=== PATIENT | male | born 1955 | race Caucasian/White ===

== ENCOUNTER 2020-07-19 10:56 | Emergency (ER) | payer MEDICARE, SELFPAY ==
[2020-07-19 11:19] VITALS: BP 166/94; PULSE 78; RESP 18; TEMP 36.7; O2SAT 98; BMI 20.7
[2020-07-19 11:32] VITALS: BP 157/90; PULSE 73; RESP 18; TEMP 37.2
[2020-07-19 11:57] LABS: Glucose Urine UA NEG (NEG); Leukocyte Esterase Urine NEG (NEG); Nitrite Urine NEG (NEG); PH 5.5 (5.0-8.0); Urine Blood 1+ (NEG); Urine Ketones NEG (NEG); Urine Protein 1+ MG/DL (NEG-TRACE)
[2020-07-19 11:58] LABS: Appearance Urine CLEAR; Color Urine YELLOW
[2020-07-19 12:08] LABS: Mucus Urine TRACE /LPF; Squamous Epithelial Cell Urine TRACE /LPF; WBC Urine 0-2 /HPF (0-4)
--- NOTE | 2020-07-19 12:12 | ED_ITS ---
HPI - Male Genitourinary General Chief complaint: Urogenital-Male Stated complaint: Genital pain Time Seen by Provider: 07/19/20 12:06 Source: patient Mode of arrival: ambulatory History of Present Illness HPI Narrative: 65-year-old male with no significant PMH presented to ED complaining of yellow penile discharge since yesterday. Admits to unprotected intercourse with multiple partners last week. Denies dysuria, hematuria, abdominal pain, nausea /vomiting, flank pain Onset (ago): day(s) Duration: constant Location: penis Related Data Allergies Allergy/AdvReac Type Severity Reaction Status Date / Time No Known Allergies Allergy Verified 07/19/20 11:18 Review of Systems Review of Systems: Constitutional: No Weight loss, No Fever, No Chills Cardiovascular: No Chest Pain, No SOB Respiratory: No Cough, No Sputum Gastrointestinal: No Nausea, No Vomiting, No Diarrhea, No Constipation, No abdominal pain Genitourinary: +penile d/c, no irregular bleeding, No Dysuria, No Urinary Frequency, No Hematuria, No Urinary Incontinence, No Urgency, No Flank Pain, No Urinary Flow Changes, No Hesitancy Skin: No Skin Lesions, No rash PMFSH Social History Social History Alcohol intake: current Alcohol intake frequency: a few times a month Alcohol type: beer Smoking Status: Never smoker Use of substances other than those prescribed or required for medical reasons: No Advance Directives: No Advance Directives Information Provided: No Physical Exam Vital Signs: Vital Signs: Vital Signs Temp Pulse Resp BP Pulse Ox 07/19/20 11:32 98.9 F 73 18 157/90 H 07/19/20 11:19 98.0 F 78 18 166/94 H 98 Body Mass Index 20.7 Const: General: cooperative and healthy appearing Orientation/consciousness: patient oriented x3 Limitations: no limitations HENMT: Head: Yes normal to inspection Ears: hearing grossly normal padilla aterally General nose exam: Normal external nose present Face and sinus: Yes normal facial exam Eyes: General: appearance normal, both eyes and all related structures EOM: EOMs intact bilaterally Neck: Neck: Yes normal visual inspection Resp: Effort & Inspection: normal respiratory effort and no stridor Auscultation: clear to auscultation bilaterally, no crackles, no rales, no rhonchi and no wheezes Cardio: Rate: regular rate Heart sounds: S1 normal heart sound present and S2 normal heart sound present Peripheral pulses: Peripheral pulses 2+ throughout GI: Inspection: Yes normal to inspection Palpation (GI): Soft to palpation, nontender, no guarding and not rigid : Other: no discharge appreciated General: Yes no CVA tenderness Male General Exam: No Genital lesions present Penis: normal penis, uncircumcised, no swelling, no ulcerations and No Genital lesions present Meatus: meatus normal Scrotum: scrotum normal Testes: Testes normal Back/Spine/Pelvis: Back: no CVA tenderness Skin: Wounds: no wounds Neuro: General: patient oriented x3 Extrem: General: Yes normal to inspection Course Course Course Narrative: --1214-- UA negative MDM - Male Genitourinary MDM Narrative Medical decision making narrative: on exam VSS, NAD, well appearing. Concern for STI. Rule out UTI patient agreeable to empiric treatment with Rocephin and azithromycin in the ED Differential Diagnosis Differential diagnosis: Likely urinary tract infection, urethritis and epididymitis Lab Data Labs: Lab Results 07/19/20 Range/Units 11:46 Urine Color YELLOW Urine Appearance CLEAR Urine pH 5.5 (5.0-8.0) Ur Specific [place] 1.020 (1.005-1.025) Urine Protein 1+ H (NEG-TRACE) MG/DL Urine Glucose (UA) NEG (NEG) MG/DL Urine Ketones NEG (NEG) MG/DL Urine Blood 1+ H (NEG) Urine Nitrite NEG (NEG) Ur Leukocyte Esterase NEG (NEG) Urine RBC 1-4 (0) /HPF Urine WBC 0-2 (0-4) /HPF Ur Squamous Epith Cells TRACE /LPF Urine Bacteria NONE /LPF Urine Mucus TRACE /LPF
[2020-07-19] MEDS: Azithromycin 500 MG TABLET 1000 MG PO (13:37)
[2020-07-19] MEDS: cefTRIAXone sodium 250 MG VIAL IM (13:41)
--- NOTE | 2020-07-19 13:43 | PC.NURSE ---
URINE OBTAINED, ANTIBIOTICS GIVEN PER ORDER
[2020-07-19 14:00] VITALS: BP 151/89; PULSE 72; RESP 18; TEMP 36.8
== END 2020-07-19 15:13 | disposition home or self-care (01) ==
PROVIDERS: Emergency Provider Emergency Medicine; PCP Family Medicine
DX: R36.9 Urethral discharge, unspecified (principal)
CPT/HCPCS: 81001; 96372; 99284; J0696

== ENCOUNTER 2020-08-06 13:31 | Emergency (ER) | payer MEDICARE, SELFPAY ==
--- NOTE | 2020-08-06 | ECG_ITS ---
Test Reason : CHESTPAIN Blood Pressure : / mmHG Vent. Rate : 078 BPM Atrial Rate : 078 BPM P-R Int : 128 ms QRS Dur : 086 ms QT Int : 394 ms P-R-T Axes : 062 052 062 degrees QTc Int : 449 ms Normal sinus rhythm RSR' or QR pattern in V1 suggests right ventricular conduction delay Otherwise normal ECG When compared with ECG of 26-MAY-2020 12:44, No significant change was found Referred By: Kate Post Electronically Signed By:ZEENAT YOUNG MD
[2020-08-06 13:54] VITALS: BP 143/92; BP 190/100; PULSE 65; PULSE 73; RESP 16; TEMP 36.7; O2SAT 97; O2SAT 98; BMI 20.7
--- NOTE | 2020-08-06 14:00 | ED.GENADULT ---
HPI - General Adult General Chief complaint: Chest Pain Stated complaint: chest pain Time Seen by Provider: 08/06/20 13:33 Source: patient Mode of arrival: EMS Limitations: language barrier ( Kiswahili-speaking) History of Present Illness HPI narrative: patient comes to the emergency room complaining of chest pain that started around 12 to 12:30 after eating lunch. Patient states he did not have any shortness of breath, only epigastric and chest pain. In the ambulance he got 325 mg of aspirin which improved the chest pain. Now 02/11. Patient denies coughing, no vomiting, diarrhea, no fever. Patient states he has had multiple episodes of chest pain in the past. Patient denies using drugs, however he admits to drinking alcohol daily, states he drank 2 beers yesterday. Related Data Home Medications Medication Instructions Recorded Confirmed acetaminophen 500 mg PO Q12H PRN 08/06/20 08/06/20 atorvastatin 10 mg PO BEDTIME 08/06/20 08/06/20 buspirone 30 mg PO BID 08/06/20 08/06/20 cholecalciferol (vitamin D3) 25 mcg PO QAM 08/06/20 08/06/20 fluticasone propionate 1 spray INTRANASAL DAILY 08/06/20 08/06/20 folic acid 1 mg PO QAM 08/06/20 08/06/20 lidocaine 1 applic TOPICAL DAILY 08/06/20 08/06/20 lisinopril 2.5 mg PO QAM 08/06/20 08/06/20 loratadine 10 mg PO DAILY 08/06/20 08/06/20 mirtazapine 45 mg PO BEDTIME 08/06/20 08/06/20 phenytoin sodium extended 300 mg PO QAM 08/06/20 08/06/20 thiamine HCl (vitamin B1) 100 mg PO QAM 08/06/20 08/06/20 warfarin 4 mg PO DAILY 08/06/20 08/06/20 Allergies Allergy/AdvReac Type Severity Reaction Status Date / Time acetaminophen [From Percocet] Allergy Unknown Verified 08/06/20 14:23 oxycodone Allergy Unknown Verified 08/06/20 14:23 Review of Systems Review of Systems: Constitutional : No Weight loss, No Fever, No Chills, No Night Sweats, No Fatigue, No Malaise ENT/Mouth : No Hearing loss, No Ear Pain, No Nasal Congestion, No Sinus Pain, No Hoarseness, No sore throat, No Rhinorrhea, No Swallowing Difficulty Eyes: No Eye Pain, No Swelling, No Redness, No Foreign Body, No Discharge, No Vision Changes Cardiovascular : complaining epigastric and chest pain, No SOB, No Dyspnea on Exertion, No Orthopnea, No Edema, No Palpitations Respiratory : No Cough, No Sputum, No Wheezing, No Smoke Exposure, No Dyspnea Gastrointestinal : No Nausea, No Vomiting, No Diarrhea, No Constipation, mild epigastric Pain, No Hematochezia, No Melena Genitourinary : no irregular bleeding, No Dysuria, No Urinary Frequency, No Hematuria, No Urinary Incontinence, No Urgency, No Flank Pain, No Urinary Flow Changes, No Hesitancy Musculoskeletal : No joint pain, No Myalgias, No Joint Swelling Skin : No Skin Lesions, No rash Neuro : No Weakness, No Numbness, No Paresthesias, No Loss of Consciousness, No Dizziness, No Headache Psych : No Anxiety/Panic, No Depression, No SI/HI/AH/VH, No Social Issues, Heme/Lymph: No Bruising, No Bleeding,No Lymphadenopathy Endocrine : No Polyuria, No Polydipsia, No Temperature Intolerance Yes all other systems are reviewed and are negative [facility] Past Medical History Medical History Alcohol abuse Aortic aneurysm Chronic anticoagulation CKD (chronic kidney disease) Depression DVT (deep venous thrombosis) GERD (gastroesophageal reflux disease) Hemorrhoid Hyperhomocysteinemia Mood disorder Mood disorder due to a general medical condition Peripheral vascular disease Seizure Social History Social History Alcohol intake: current Alcohol intake frequency: a few times a month Alcohol type: beer Smoking Status: Never smoker Use of substances other than those prescribed or required for medical reasons: No Advance Directives: No Advance Directives Information Provided: Yes Physical Exam Vital Signs: Vital Signs: Vital Signs Temp Pulse Resp BP Pulse Ox 08/06/20 15:20 98.2 F 65 12 142/88 H 99 08/06/20 15:13 97.7 F 60 18 128/85 99 08/06/20 13:54 98.1 F 73 16 143/92 H 97 Body Mass Index 20.7 Appearance: Alert. Oriented X3. No acute distress. Eyes: Pupils equal, round and reactive to light. ENT: Pharynx normal. Neck: Normal inspection. Neck supple. No lymph nodes noted. No crepitus CVS: Normal heart rate and rhythm. Pulses normal. Normal S1 and S2, Reproducible chest pain on the left side with palpation Respiratory: No respiratory distress. Breath sounds normal. No Wheezing. No rales Abdomen: Soft and nontender. No rigidity. No distention. good BS x4 Skin: Skin warm and dry. Normal skin color. Normal skin turgor. Extremities: No lower extremity edema. No lower extremity edema. No Lacerations. No Rash Neuro: Oriented X 3. No motor deficit. No sensory deficit. Moving all extermities. No slurred speech. Course Course Course Narrative: at this time, 16:15, patient is asymptomatic, states he does not have any chest pain or shortness of breath. Troponin is 17.2, he is due for a repeat troponin at 17:30. Patient will likely be discharged home. Sign-out given to Dr. Covarrubias Medical Decision Making Lab Data Result diagrams: 08/06/20 14:28 08/06/20 14:28 Labs: Lab Results 08/06/20 08/06/20 08/06/20 Range/Units 14:28 14:28 14:28 WBC 4.2 L (4.8-10.8) X10*3/uL RBC 4.73 (4.60-5.80) X10*6/uL Hgb 16.2 (14.0-18.0) g/dl Hct 47.8 (42-52) % MCV 101.1 H (80-98) fL MCH 34.2 H (27.0-33.0) pg MCHC 33.9 (31.0-36.0) g/dl RDW 12.1 (11.0-16.0) % Plt Count 111 L (160-400) X10*3/uL MPV 10.4 (9.4-12.4) fL Immature Gran % (Auto) 0.2 (0.0-0.4) % Neut % (Auto) 73.7 H (45-73) % Lymph % (Auto) 14.7 L (20-40) % [place] % (Auto) 6.9 (2-11) % Eos % (Auto) 4.0 (0-4) % Baso % (Auto) 0.5 (0-2) % Lymph # (Auto) 0.6 L (1.2-4.9) X10*3/uL [place] # (Auto) 0.3 (0.1-1.2) X10*3/uL Eos # (Auto) 0.2 (0.0-0.4) X10*3/uL Baso # (Auto) 0.0 (0.0-0.2) X10*3/uL Abs Immat Gran (auto) 0.01 (0.00-0.03) X10*3/uL Absolute Neuts (auto) 3.1 (2.0-8.3) X10*3/uL Absolute Nucleated RBC 0.000 (0.0-0.012) X10*3/uL Nucleated RBC % (auto) 0.0 (0.0-0.2) /100WBC Smear Tech's Comments VERIFIED Sodium 139 (135-145) mmol/L Potassium 4.3 (3.3-5.1) mmol/l Chloride 106 (96-108) mmol/L Carbon Dioxide 25 (22-29) mmol/L Anion Gap 12 (12-20) BUN 21 H (9-16) mg/dL Creatinine 1.24 (0.5-1.4) mg/dL Estim Creat Clear Calc 51.9 Estimated GFR 58 Random Glucose 115 (60-115) mg/dL Calcium 8.5 (8.4-10.2) mg/dL Total Bilirubin (0.0-1.0) mg/dL Direct Bilirubin (0.0-0.5) mg/dL AST (5-37) U/L ALT (0-40) U/L Alkaline Phosphatase (39-117) U/L Troponin I High Sens (<3.5-35.0) ng/L B-Natriuretic Peptide (<100) pg/mL Total Protein (6.5-8.0) g/dL Albumin (3.5-5.0) g/dL Lipase (8-78) U/L Ethyl Alcohol < 10 mg/dL 08/06/20 08/06/20 Range/Units 14:28 14:28 WBC (4.8-10.8) X10*3/uL RBC (4.60-5.80) X10*6/uL Hgb (14.0-18.0) g/dl Hct (42-52) % MCV (80-98) fL MCH (27.0-33.0) pg MCHC (31.0-36.0) g/dl RDW (11.0-16.0) % Plt Count (160-400) X10*3/uL MPV (9.4-12.4) fL Immature Gran % (Auto) (0.0-0.4) % Neut % (Auto) (45-73) % Lymph % (Auto) (20-40) % [place] % (Auto) (2-11) % Eos % (Auto) (0-4) % Baso % (Auto) (0-2) % Lymph # (Auto) (1.2-4.9) X10*3/uL [place] # (Auto) (0.1-1.2) X10*3/uL Eos # (Auto) (0.0-0.4) X10*3/uL Baso # (Auto) (0.0-0.2) X10*3/uL Abs Immat Gran (auto) (0.00-0.03) X10*3/uL Absolute Neuts (auto) (2.0-8.3) X10*3/uL Absolute Nucleated RBC (0.0-0.012) X10*3/uL Nucleated RBC % (auto) (0.0-0.2) /100WBC Smear Tech's Comments Sodium (135-145) mmol/L Potassium (3.3-5.1) mmol/l Chloride (96-108) mmol/L Carbon Dioxide (22-29) mmol/L Anion Gap (12-20) BUN (9-16) mg/dL Creatinine (0.5-1.4) mg/dL Estim Creat Clear Calc Estimated GFR Random Glucose (60-115) mg/dL Calcium (8.4-10.2) mg/dL Total Bilirubin 0.3 (0.0-1.0) mg/dL Direct Bilirubin < 0.2 (0.0-0.5) mg/dL AST 17 (5-37) U/L ALT 16 (0-40) U/L Alkaline Phosphatase 49 (39-117) U/L Troponin I High Sens 17.2 (<3.5-35.0) ng/L B-Natriuretic Peptide 55 (<100) pg/mL Total Protein 6.3 L (6.5-8.0) g/dL Albumin 3.7 (3.5-5.0) g/dL Lipase 58 (8-78) U/L Ethyl Alcohol mg/dL ECG Data Attestation: I personally reviewed and interpreted this ECG as follows: ( sinus rhythm, heart rate 78, no ST segment depression or elevation, no T-wave inversion.) Scores Heart Score History: -0- slightly suspicious ECG: -0- normal Age: -2- > or = 65 Risk factory: -1- 1 or 2 risk factors Troponin: -0- < or = normal limit Score: 3 Risk: 1.7% Discharge Plan Discharge Clinical Impression: Chest pain Qualifiers: Chest pain type: unspecified Qualified Code(s): R07.9 - Chest pain, unspecified Prescriptions: No Action atorvastatin 10 mg tablet 10 mg PO BEDTIME RF: 0 lidocaine 5 % cream 1 applic topical DAILY RF: 0 thiamine HCl (vitamin B1) 100 mg tablet 100 mg PO QAM RF: 0 phenytoin sodium extended 100 mg capsule 300 mg PO QAM RF: 0 acetaminophen 500 mg tablet 500 mg PO Q12H PRN (Reason: Pain (Scale Score 1-3)) RF: 0 buspirone 30 mg tablet 30 mg PO BID RF: 0 mirtazapine 45 mg tablet 45 mg PO BEDTIME RF: 0 folic acid 1 mg tablet 1 mg PO QAM RF: 0 fluticasone propionate 50 mcg/actuation spray,suspension 1 spray intranasal DAILY RF: 0 lisinopril 2.5 mg tablet 2.5 mg PO QAM RF: 0 loratadine 10 mg tablet 10 mg PO DAILY RF: 0 cholecalciferol (vitamin D3) 25 mcg (1,000 unit) tablet 25 mcg PO QAM RF: 0 warfarin 4 mg tablet 4 mg PO DAILY RF: 0
[2020-08-06 14:42] LABS: Basophils Percent Auto 0.5 % (0-2); Eosinophils Absolute Auto 0.2 X10*3/uL (0.0-0.4); Hematocrit 47.8 % (42-52); Hemoglobin 16.2 g/dl (14.0-18.0); Imm Gran Abs Auto 0.01 X10*3/uL (0.00-0.03); Imm Gran Pct Auto 0.2 % (0.0-0.4); Lymphocytes Absolute Auto 0.6 X10*3/uL (1.2-4.9); Lymphocytes Percent Auto 14.7 % (20-40); MANUAL DIFF FLAG SCAN; Mean Corpuscular HGB Conc 33.9 g/dl (31.0-36.0); Mean Corpuscular Hemoglobin 34.2 pg (27.0-33.0); Mean Corpuscular Volume 101.1 fL (80-98); Mean Platelet Volume 10.4 fL (9.4-12.4); Monocytes Absolute Auto 0.3 X10*3/uL (0.1-1.2); Monocytes Percent Auto 6.9 % (2-11); Neutrophils Absolute Auto 3.1 X10*3/uL (2.0-8.3); Neutrophils Percent Auto 73.7 % (45-73); Platelet Count 111 X10*3/uL (160-400); Red Blood Count 4.73 X10*6/uL (4.60-5.80); Red Cell Distribution Width 12.1 % (11.0-16.0); SCAN SMEAR FLAG 1; White Blood Count 4.2 X10*3/uL (4.8-10.8)
[2020-08-06 15:01] LABS: Blood Urea Nitrogen 21 mg/dL (9-16); Creatinine Clr Calc Pharmacy 51.9; Estimated Glomerular Filt Rate 58; Ethanol < 10 mg/dL; Glucose Random 115 mg/dL (60-115)
[2020-08-06 15:02] LABS: Alanine Aminotransferase 16 U/L (0-40); Albumin Level 3.7 g/dL (3.5-5.0); Alkaline Phosphatase 49 U/L (39-117); Aspartate Amino Transferase 17 U/L (5-37); Bilirubin Direct < 0.2 mg/dL (0.0-0.5); Bilirubin Total 0.3 mg/dL (0.0-1.0); Lipase 58 U/L (8-78); Total Protein 6.3 g/dL (6.5-8.0)
[2020-08-06 15:08] LABS: B Type Natriuretic Peptide 55 pg/mL (<100); Troponin-I High Sensitivity 17.2 ng/L (<3.5-35.0)
[2020-08-06 15:13] VITALS: BP 128/85; PULSE 60; RESP 18; TEMP 36.5; O2SAT 99
[2020-08-06 15:14] LABS: Anion Gap 12 (12-20); Calcium 8.5 mg/dL (8.4-10.2); Carbon Dioxide 25 mmol/L (22-29); Chloride 106 mmol/L (96-108); Potassium 4.3 mmol/l (3.3-5.1); Sodium 139 mmol/L (135-145)
[2020-08-06 15:20] VITALS: BP 142/88; PULSE 65; RESP 12; TEMP 36.8; O2SAT 99
--- NOTE | 2020-08-06 15:23 | PC.NURSE ---
male patient alert and oriented times four. no distress. denies chest pain or any other cardiac complaints. b/l lungs clear. remains on quality assurance monitor. will observe for changes. patient awaiting dispo
[2020-08-06 15:28] LABS: SLIDE REVIEW VERIFIED
[2020-08-06 16:47] LABS: INTERNATIONAL NORM RATIO 2.3 (0.9-1.1); Prothrombin Time 27.7 SEC (10.8-13.0)
[2020-08-06 17:16] LABS: Troponin-I High Sensitivity 13.7 ng/L (<3.5-35.0)
[2020-08-06 18:02] VITALS: BP 144/99; PULSE 61; RESP 12; TEMP 36.5; O2SAT 99
[2020-08-06] MEDS: Famotidine/PF 20 MG/2 ML VIAL IVPUSH (18:41)
== END 2020-08-06 18:50 | disposition home or self-care (01) ==
PROVIDERS: Emergency Provider Emergency Medicine; PCP Family Medicine
DX: R07.9 Chest pain, unspecified (principal); Z79.899 Other long term (current) drug therapy
CPT/HCPCS: 36415; 80048; 80076; 80320; 83690; 83880; 84484; 85025; 85610; 93005; 96374; 99284

== ENCOUNTER 2020-08-21 14:47 | Outpatient (REF) | payer MEDICARE, SELFPAY ==
[2020-08-21 15:33] LABS: INTERNATIONAL NORM RATIO 3.9 (0.9-1.1); Prothrombin Time 46.7 SEC (10.8-13.0)
[2020-08-21 15:51] LABS: Alanine Aminotransferase 22 U/L (0-40); Alkaline Phosphatase 55 U/L (39-117); Aspartate Amino Transferase 19 U/L (5-37); Bilirubin Direct < 0.2 mg/dL (0.0-0.5); Bilirubin Total 0.3 mg/dL (0.0-1.0); Cholesterol 212 mg/dL; HDL Cholesterol 64 mg/dL; LDL Cholesterol Calculated 119 mg/dl; Triglycerides 145 mg/dL
[2020-08-21 15:53] LABS: Estimated Average Glucose 111 mg/dL; Hemoglobin A1C 150.3114 umol/L; Hemoglobin A1c % 5.5 %
[2020-08-21 15:58] LABS: Ethanol < 10 mg/dL
[2020-08-21 16:04] LABS: Phenytoin Dilantin 12.6 ug/mL (10.0-20.0)
[2020-08-21 16:09] LABS: Prostate Specific Antigen 2.98 ng/mL (<0.05-4.0); Vitamin D 25-OH Total 22.5 ng/mL (>30)
[2020-08-21 16:23] LABS: Folate 15.8 ng/mL (> or = 4.0); Vitamin B12 229 pg/mL (200-900)
== END 2020-08-21 14:48 | disposition home or self-care (01) ==
LOC: HO.LAB 14:47
PROVIDERS: PCP Family Medicine; Visit Provider Family Medicine
DX: I10 Essential (primary) hypertension (principal); Z79.01 Long term (current) use of anticoagulants; Z12.5 Encounter for screening for malignant neoplasm of prostate
CPT/HCPCS: 36415; 80061; 80076; 80185; 80320; 82306; 82607; 82746; 83036; 83735; 84153; 85610

== ENCOUNTER 2020-10-01 11:35 | Emergency (ER) | payer MEDICARE, SELFPAY ==
--- NOTE | 2020-10-01 | ECG_ITS ---
Test Reason : CHEST PAIN Blood Pressure : / mmHG Vent. Rate : 059 BPM Atrial Rate : 059 BPM P-R Int : 140 ms QRS Dur : 086 ms QT Int : 424 ms P-R-T Axes : 047 042 053 degrees QTc Int : 419 ms Sinus bradycardia Otherwise normal ECG When compared with ECG of 06-AUG-2020 13:48, No significant change was found Referred By: Jennifer Ford Electronically Signed By:MARSHALL TATE MD
[2020-10-01 11:50] VITALS: BP 146/92; BP 147/89; PULSE 65; PULSE 80; RESP 17; TEMP 37.1; O2SAT 100; O2SAT 98; BMI 21.4
--- NOTE | 2020-10-01 11:52 | ED.CHESTPAIN ---
HPI - Chest Pain General Chief Complaint: Chest Pain Stated Complaint: cp Time Seen by Provider: 10/01/20 11:52 Source: patient, EMS, old records reviewed and full time staff interpreter Mode of arrival: EMS Limitations: no limitations History of Present Illness MD complaint: chest pain Pertinent past history: other (HTN) Onset (ago): hour(s) (1130am) Timing of current episode: constant Prior episodes: Yes Onset: during rest Pain location: left chest Pain radiation: none Severity: mild Quality: burning Relieving factors: nothing Exacerbating factors: nothing Context: other (states he checked his BP 150/121 at home) Treatment prior to arrival: none Related Data Home Medications Medication Instructions Recorded Confirmed acetaminophen 500 mg PO Q12H PRN 08/06/20 08/06/20 atorvastatin 10 mg PO BEDTIME 08/06/20 08/06/20 buspirone 30 mg PO BID 08/06/20 08/06/20 cholecalciferol (vitamin D3) 25 mcg PO QAM 08/06/20 08/06/20 fluticasone propionate 1 spray INTRANASAL DAILY 08/06/20 08/06/20 folic acid 1 mg PO QAM 08/06/20 08/06/20 lidocaine 1 applic TOPICAL DAILY 08/06/20 08/06/20 lisinopril 2.5 mg PO QAM 08/06/20 08/06/20 loratadine 10 mg PO DAILY 08/06/20 08/06/20 mirtazapine 45 mg PO BEDTIME 08/06/20 08/06/20 phenytoin sodium extended 300 mg PO QAM 08/06/20 08/06/20 thiamine HCl (vitamin B1) 100 mg PO QAM 08/06/20 08/06/20 warfarin 4 mg PO DAILY 08/06/20 08/06/20 Previous Rx's Medication Instructions Recorded omeprazole 20 mg PO DAILY 42 Days #42 cap 08/06/20 sucralfate [Carafate] 1 g PO BID #60 tab 08/06/20 omeprazole 20 mg PO DAILY #30 cap 08/08/20 sucralfate [Carafate] 1 g PO BID #60 tab 08/08/20 Allergies Allergy/AdvReac Type Severity Reaction Status Date / Time acetaminophen [From Percocet] Allergy Unknown Verified 08/06/20 14:23 oxycodone Allergy Unknown Verified 08/06/20 14:23 Review of Systems Review of Systems: Constitutional : No Weight loss, No Fever, No Chills ENT/Mouth : No sore throat, No Rhinorrhea Eyes: No Eye Pain, No Swelling Cardiovascular : pos Chest Pain, no SOB, no Dyspnea on Exertion, No Orthopnea, No Edema, No Palpitations Respiratory : No Cough, No Sputum Gastrointestinal : no Nausea, No Vomiting, No Diarrhea, No abdominal Pain, No Hematochezia, No Melena Genitourinary : No Dysuria, No Urinary Frequency Musculoskeletal : No joint pain, No Myalgias, No Joint Swelling Skin : No Skin Lesions, No rash Neuro : No Weakness, No Numbness, No Dizziness, No Headache Psych : No Anxiety/Panic, No Depression Heme/Lymph: No Bruising, No Lymphadenopathy Endocrine : No Polyuria, No Polydipsia All other systems reviewed and are negative [facility] Past Medical History Attestation statement: The following information was validated with the patient. Medical History Alcohol abuse Aortic aneurysm Chronic anticoagulation CKD (chronic kidney disease) Depression DVT (deep venous thrombosis) GERD (gastroesophageal reflux disease) Hemorrhoid Hyperhomocysteinemia Mood disorder Mood disorder due to a general medical condition Peripheral vascular disease Seizure Social History Social History Alcohol intake: current Alcohol intake frequency: a few times a month Alcohol type: beer Smoking Status: Never smoker Use of substances other than those prescribed or required for medical reasons: No Advance Directives: No Advance Directives Information Provided: Yes Physical Exam Vital Signs: Vital Signs: Last Vital Signs Temp 98.8 F 10/01/20 11:50 Pulse 65 10/01/20 11:50 Resp 17 10/01/20 11:50 BP 147/89 H 10/01/20 11:50 Pulse Ox 98 10/01/20 11:50 Body Mass Index 21.4 Appearance: Alert. Oriented X3. No acute distress. Eyes: Pupils equal, round and reactive to light. ENT: Pharynx normal. Neck: Normal inspection. Neck supple. CVS: Normal heart rate and rhythm. Pulses normal. Respiratory: No respiratory distress. Breath sounds normal. Abdomen: Soft and nontender. Skin: Skin warm and dry. Normal skin color. Normal skin turgor. Extremities: No lower extremity edema. No calf ttp Neuro: Oriented X 3. No motor deficit. No sensory deficit. Course Course Course Narrative: INR 1.2 hx of DVT will obtain CTA for PE at this time trop negative stable for DC MDM - Chest Pain MDM Narrative Medical decision making narrative: 65 yo male with HTN, HPL, ETOH abuse, DVT on eliquis - comes in with burning L chest pain no associated symptoms since 1130 - no recent URIs, reports BP 156/121 at home (seems incorrect) became anxious at this time will obtain labs, EKG, CXR, troponin x 2, BP 140/95. Lab Data Result diagrams: 10/01/20 12:04 10/01/20 12:04 Labs: Lab Results 10/01/20 10/01/20 10/01/20 Range/Units 11:58 12:04 12:04 WBC 4.1 L (4.8-10.8) X10*3/uL RBC 4.97 (4.60-5.80) X10*6/uL Hgb 17.2 (14.0-18.0) g/dl Hct 49.6 (42-52) % MCV 99.8 H (80-98) fL MCH 34.6 H (27.0-33.0) pg MCHC 34.7 (31.0-36.0) g/dl RDW 11.9 (11.0-16.0) % Plt Count 111 L (160-400) X10*3/uL MPV 10.1 (9.4-12.4) fL Immature Gran % (Auto) 0.2 (0.0-0.4) % Neut % (Auto) 69.4 (45-73) % Lymph % (Auto) 15.9 L (20-40) % [place] % (Auto) 10.6 (2-11) % Eos % (Auto) 3.4 (0-4) % Baso % (Auto) 0.5 (0-2) % Lymph # (Auto) 0.7 L (1.2-4.9) X10*3/uL [place] # (Auto) 0.4 (0.1-1.2) X10*3/uL Eos # (Auto) 0.1 (0.0-0.4) X10*3/uL Baso # (Auto) 0.0 (0.0-0.2) X10*3/uL Abs Immat Gran (auto) 0.01 (0.00-0.03) X10*3/uL Absolute Neuts (auto) 2.9 (2.0-8.3) X10*3/uL Absolute Nucleated RBC 0.000 (0.0-0.012) X10*3/uL Nucleated RBC % (auto) 0.0 (0.0-0.2) /100WBC Smear Tech's Comments VERIFIED PT 14.5 H D (10.8-13.0) SEC INR 1.2 H (0.9-1.1) APTT 29.5 (24.1-38.0) SEC Sodium (135-145) mmol/L Potassium (3.3-5.1) mmol/l Chloride (96-108) mmol/L Carbon Dioxide (22-29) mmol/L Anion Gap (12-20) BUN (9-16) mg/dL Creatinine (0.5-1.4) mg/dL Estim Creat Clear Calc Estimated GFR Random Glucose (60-115) mg/dL Calcium (8.4-10.2) mg/dL Magnesium (1.6-2.6) mg/dL Total Bilirubin (0.0-1.0) mg/dL Direct Bilirubin (0.0-0.5) mg/dL AST (5-37) U/L ALT (0-40) U/L Alkaline Phosphatase (39-117) U/L Troponin I High Sens (<3.5-35.0) ng/L Total Protein (6.5-8.0) g/dL Albumin (3.5-5.0) g/dL COVID-19 (DALI) Negative (Negative) COVID-19 Clin Com See Note 10/01/20 10/01/20 10/01/20 Range/Units 12:04 12:04 14:13 WBC (4.8-10.8) X10*3/uL RBC (4.60-5.80) X10*6/uL Hgb (14.0-18.0) g/dl Hct (42-52) % MCV (80-98) fL MCH (27.0-33.0) pg MCHC (31.0-36.0) g/dl RDW (11.0-16.0) % Plt Count (160-400) X10*3/uL MPV (9.4-12.4) fL Immature Gran % (Auto) (0.0-0.4) % Neut % (Auto) (45-73) % Lymph % (Auto) (20-40) % [place] % (Auto) (2-11) % Eos % (Auto) (0-4) % Baso % (Auto) (0-2) % Lymph # (Auto) (1.2-4.9) X10*3/uL [place] # (Auto) (0.1-1.2) X10*3/uL Eos # (Auto) (0.0-0.4) X10*3/uL Baso # (Auto) (0.0-0.2) X10*3/uL Abs Immat Gran (auto) (0.00-0.03) X10*3/uL Absolute Neuts (auto) (2.0-8.3) X10*3/uL Absolute Nucleated RBC (0.0-0.012) X10*3/uL Nucleated RBC % (auto) (0.0-0.2) /100WBC Smear Tech's Comments PT (10.8-13.0) SEC INR (0.9-1.1) APTT (24.1-38.0) SEC Sodium 138 (135-145) mmol/L Potassium 4.6 (3.3-5.1) mmol/l Chloride 105 (96-108) mmol/L Carbon Dioxide 28 (22-29) mmol/L Anion Gap 10 L (12-20) BUN 23 H (9-16) mg/dL Creatinine 1.28 (0.5-1.4) mg/dL Estim Creat Clear Calc 52.0 Estimated GFR 56 Random Glucose 103 (60-115) mg/dL Calcium 8.8 (8.4-10.2) mg/dL Magnesium 2.0 (1.6-2.6) mg/dL Total Bilirubin 0.6 (0.0-1.0) mg/dL Direct Bilirubin 0.2 (0.0-0.5) mg/dL AST 14 (5-37) U/L ALT 16 (0-40) U/L Alkaline Phosphatase 56 (39-117) U/L Troponin I High Sens 10.6 8.7 (<3.5-35.0) ng/L Total Protein 6.9 (6.5-8.0) g/dL Albumin 4.0 (3.5-5.0) g/dL COVID-19 (DALI) (Negative) COVID-19 Clin Com ECG Data ECG #1: Attestation: I personally reviewed and interpreted this ECG as follows: ECG interpretation date: 10/01/20 ECG interpretation time: 12:03 Interpretation: Rate: 59 Rhythm: sinus bradycardi [place]: normal Normal P waves. Normal NAINA. Normal QRS complex. ST T wave : normal no ANTONI qTC: normal prior studies: no acute ischemia The study has been interpreted contemporaneously by me. . Discharge Plan Discharge Clinical Impression: Chest pain Patient Disposition: Home, Self-Care Instructions: Chest Pain (ED) Additional Instructions: return to ED for any worsening symptoms or concerns YOU NEED TO SEE YOUR DOCTOR YOUR AORTA IS SLIGHTLY ENLARGED THEY NEED TO MONITOR THIS YOUR INR IS ONLY 1.2 PLEASE FOLLOW UP WITH YOUR CLINIC Prescriptions: No Action atorvastatin 10 mg tablet 10 mg PO BEDTIME RF: 0 lidocaine 5 % cream 1 applic topical DAILY RF: 0 thiamine HCl (vitamin B1) 100 mg tablet 100 mg PO QAM RF: 0 phenytoin sodium extended 100 mg capsule 300 mg PO QAM RF: 0 acetaminophen 500 mg tablet 500 mg PO Q12H PRN (Reason: Pain (Scale Score 1-3)) RF: 0 buspirone 30 mg tablet 30 mg PO BID RF: 0 mirtazapine 45 mg tablet 45 mg PO BEDTIME RF: 0 folic acid 1 mg tablet 1 mg PO QAM RF: 0 fluticasone propionate 50 mcg/actuation spray,suspension 1 spray intranasal DAILY RF: 0 lisinopril 2.5 mg tablet 2.5 mg PO QAM RF: 0 loratadine 10 mg tablet 10 mg PO DAILY RF: 0 cholecalciferol (vitamin D3) 25 mcg (1,000 unit) tablet 25 mcg PO QAM RF: 0 warfarin 4 mg tablet 4 mg PO DAILY RF: 0 omeprazole 20 mg capsule,delayed release(DR/EC) 20 mg PO DAILY 42 Days Qty: 42 RF: 0 sucralfate [Carafate] 1 gram tablet 1 g PO BID Qty: 60 RF: 0 omeprazole 20 mg capsule,delayed release(DR/EC) 20 mg PO DAILY Qty: 30 RF: 0 sucralfate [Carafate] 1 gram tablet 1 g PO BID Qty: 60 RF: 0 Referrals: Veronica Gallardo MD [Primary Care Provider] - 2 days (please follow up tuesday)
--- NOTE | 2020-10-01 11:53 | XR_ITS ---
EXAMINATION: XR CHEST CLINICAL INFORMATION: Chest pain COMPARISON: Previous chest x-ray May 2020 TECHNIQUE: Frontal view of the chest was obtained. FINDINGS: The cardiac and mediastinal contours are stable. There is subsegmental atelectasis at the left lung base. The lungs are otherwise clear. There is no pleural effusion or pneumothorax. Bony structures are unremarkable. XR/XR chest 1V IMPRESSION: Subsegmental atelectasis at the left lung base.
[2020-10-01 12:21] LABS: Basophils Percent Auto 0.5 % (0-2); Eosinophils Absolute Auto 0.1 X10*3/uL (0.0-0.4); Eosinophils Percent Auto 3.4 % (0-4); Hematocrit 49.6 % (42-52); Hemoglobin 17.2 g/dl (14.0-18.0); INTERNATIONAL NORM RATIO 1.2 (0.9-1.1); Imm Gran Abs Auto 0.01 X10*3/uL (0.00-0.03); Imm Gran Pct Auto 0.2 % (0.0-0.4); Lymphocytes Absolute Auto 0.7 X10*3/uL (1.2-4.9); Lymphocytes Percent Auto 15.9 % (20-40); MANUAL DIFF FLAG SCAN; Mean Corpuscular Hemoglobin 34.6 pg (27.0-33.0); Mean Corpuscular Volume 99.8 fL (80-98); Mean Platelet Volume 10.1 fL (9.4-12.4); Monocytes Absolute Auto 0.4 X10*3/uL (0.1-1.2); Monocytes Percent Auto 10.6 % (2-11); Neutrophils Absolute Auto 2.9 X10*3/uL (2.0-8.3); Neutrophils Percent Auto 69.4 % (45-73); Platelet Count 111 X10*3/uL (160-400); Prothrombin Time 14.5 SEC (10.8-13.0); Red Blood Count 4.97 X10*6/uL (4.60-5.80); Red Cell Distribution Width 11.9 % (11.0-16.0); SCAN SMEAR FLAG 1; White Blood Count 4.1 X10*3/uL (4.8-10.8)
--- NOTE | 2020-10-01 12:21 | PC.NURSE ---
labs drawn, pt nsr on monitoring manager, vss, awaiting interpretor and will continue to monitor.
[2020-10-01 12:22] LABS: Mean Corpuscular HGB Conc 34.7 g/dl (31.0-36.0)
[2020-10-01 12:23] LABS: Partial Thromboplastin Time 29.5 SEC (24.1-38.0)
--- NOTE | 2020-10-01 12:35 | CT_ITS ---
EXAMINATION: CT ANGIOGRAM OF THE CHEST WITH AND WITHOUT CONTRAST (CT PULMONARY ANGIOGRAM FOR PE) CLINICAL INFORMATION: Reason for Exam L chest pain, hx of PE, INR 1.2 COMPARISON: Previous chest x-ray from earlier the same day and chest CTA July 2014 TECHNIQUE: Prior to contrast administration, noncontrast localization images were obtained. Subsequently, multidetector volumetric imaging was performed from the thoracic inlet to below the diaphragms following the administration of 85 mL Omnipaque 350 intravenous contrast. No contrast reaction reported Sagittal, coronal, and MIP oblique sagittal reformatted images were obtained on the CT workstation, uploaded to PACS, and reviewed. This CT examination was performed using dose optimization techniques as appropriate, variously including the following: *Automated exposure control *Adjustment of mA and/or kV according to patient size (this includes techniques or standardized protocols for targeted exams where dose is matched to indication/reason for exam; i.e. extremities or head) *Use of iterative reconstruction technique Total exam dose-length product 283 mGy-cm FINDINGS: QUALITY OF STUDY/CONTRAST BOLUS: Satisfactory. PULMONARY ARTERIES: No central or segmental pulmonary emboli. THORACIC AORTA: The ascending thoracic aorta is dilated measuring 4.3 x 4.2 cm. This is increased from 2014 exam. The aortic arch is upper normal in size measuring 3.1 cm. The descending thoracic aorta is normal in caliber. LUNG: No focal consolidation, nodules or masses. PLEURA: No pleural effusion or pneumothorax. MEDIASTINUM: Normal heart size. Mild coronary artery and aortic valve calcification. No pericardial effusion. No hilar or mediastinal lymphadenopathy. No evidence of septal bowing or right heart strain. CHEST WALL/AXILLA: No axillary or internal mammary lymphadenopathy. OSSEOUS STRUCTURES: No acute or suspicious osseous abnormality. UPPER ABDOMEN: There are 2 low-attenuation left renal lesions probably representing cysts. No reflux of contrast into the hepatic veins to suggest elevated right heart pressures. CT/CT angio chest PE protocol IMPRESSION: No evidence of pulmonary embolism. Slightly dilated ascending thoracic aorta measuring 4.2 x 4.3 cm VTE: negative
[2020-10-01 12:45] LABS: Alanine Aminotransferase 16 U/L (0-40); Alkaline Phosphatase 56 U/L (39-117); Anion Gap 10 (12-20); Aspartate Amino Transferase 14 U/L (5-37); Bilirubin Direct 0.2 mg/dL (0.0-0.5); Bilirubin Total 0.6 mg/dL (0.0-1.0); Blood Urea Nitrogen 23 mg/dL (9-16); Calcium 8.8 mg/dL (8.4-10.2); Carbon Dioxide 28 mmol/L (22-29); Chloride 105 mmol/L (96-108); Estimated Glomerular Filt Rate 56; Glucose Random 103 mg/dL (60-115); Potassium 4.6 mmol/l (3.3-5.1); Sodium 138 mmol/L (135-145); Total Protein 6.9 g/dL (6.5-8.0)
[2020-10-01 12:48] LABS: Troponin-I High Sensitivity 10.6 ng/L (<3.5-35.0)
[2020-10-01 12:53] LABS: COVID-19 Test Negative (Negative); IDNOW Serial# 9DD0AD1C
[2020-10-01] MEDS: iohexoL 350 MG/ML 100 ML INFUS..BTL 65 ML IV (13:19)
[2020-10-01 13:33] LABS: SLIDE REVIEW VERIFIED
--- NOTE | 2020-10-01 14:20 | PC.NURSE ---
repeat troponin drawn per order, patient remains a&o, monitor technician nsr
[2020-10-01 14:48] LABS: Troponin-I High Sensitivity 8.7 ng/L (<3.5-35.0)
--- NOTE | 2020-10-01 15:06 | PC.NURSE ---
patients primary contact kacie called(daughter) she is calling patients son to see if he is able to come pick him up and will call to notify us.
== END 2020-10-01 15:32 | disposition home or self-care (01) ==
PROVIDERS: Emergency Provider Emergency Medicine; PCP Family Medicine
DX: R07.9 Chest pain, unspecified (principal); F10.10 Alcohol abuse, uncomplicated; Z86.718 Personal history of other venous thrombosis and embolism; Z79.01 Long term (current) use of anticoagulants; N18.9 Chronic kidney disease, unspecified
CPT/HCPCS: 36415; 71045; 71275; 80048; 80076; 83735; 84484; 85025; 85610; 85730; 87635; 93005; 99284; Q9967

== ENCOUNTER → 2020-10-31 10:01 | Outpatient (BNVA) | payer MEDICARE, SELFPAY | PROVIDERS: PCP Family Medicine; Visit Provider Internal Medicine | DX: I82.502 Chronic embolism and thrombosis of unspecified deep veins of left lower extremity (principal); Z51.81 Encounter for therapeutic drug level monitoring; Z79.01 Long term (current) use of anticoagulants | CPT/HCPCS: 85610; 99201 ==

== ENCOUNTER → 2020-11-05 10:26 | Outpatient (BNVA) | payer MEDICARE, SELFPAY | PROVIDERS: PCP Family Medicine; Visit Provider Internal Medicine | DX: I82.502 Chronic embolism and thrombosis of unspecified deep veins of left lower extremity (principal); Z51.81 Encounter for therapeutic drug level monitoring; Z79.01 Long term (current) use of anticoagulants | CPT/HCPCS: 85610; 99211 ==

== ENCOUNTER → 2020-11-13 08:58 | Outpatient (BNVA) | payer MEDICARE, SELFPAY | PROVIDERS: PCP Family Medicine; Visit Provider Internal Medicine | DX: I82.502 Chronic embolism and thrombosis of unspecified deep veins of left lower extremity (principal); Z51.81 Encounter for therapeutic drug level monitoring; Z79.01 Long term (current) use of anticoagulants | CPT/HCPCS: 85610; 99211 ==

== ENCOUNTER → 2020-11-20 08:47 | Outpatient (BNVA) | payer MEDICARE, SELFPAY | PROVIDERS: PCP Family Medicine; Visit Provider Internal Medicine | DX: I82.502 Chronic embolism and thrombosis of unspecified deep veins of left lower extremity (principal); Z51.81 Encounter for therapeutic drug level monitoring; Z79.01 Long term (current) use of anticoagulants | CPT/HCPCS: 85610; 99211 ==

== ENCOUNTER 2020-11-24 08:03 | Outpatient (REF) | payer MEDICARE, SELFPAY | END 2020-11-24 08:04 | disposition home or self-care (01) | LOC: HO.LAB 08:03 | PROVIDERS: PCP Nurse Practitioner Family; Visit Provider Internal Medicine | DX: Z20.822 Contact with and (suspected) exposure to COVID-19 (principal) | CPT/HCPCS: 36415; C9803; U0003; U0005 ==

== ENCOUNTER → 2020-12-04 08:35 | Outpatient (BNVA) | payer MEDICARE, SELFPAY | PROVIDERS: PCP Nurse Practitioner Family; Visit Provider Internal Medicine | DX: I82.502 Chronic embolism and thrombosis of unspecified deep veins of left lower extremity (principal); Z51.81 Encounter for therapeutic drug level monitoring; Z79.01 Long term (current) use of anticoagulants | CPT/HCPCS: 85610; 99211 ==

== ENCOUNTER → 2020-12-18 08:43 | Outpatient (BNVA) | payer MEDICARE, SELFPAY | PROVIDERS: PCP Family Medicine; Visit Provider Internal Medicine | DX: I82.501 Chronic embolism and thrombosis of unspecified deep veins of right lower extremity (principal); Z51.81 Encounter for therapeutic drug level monitoring; Z79.01 Long term (current) use of anticoagulants | CPT/HCPCS: 85610; 99211 ==

== ENCOUNTER → 2021-01-01 08:44 | Outpatient (BNVA) | payer MEDICARE, SELFPAY | PROVIDERS: PCP Family Medicine; Visit Provider Internal Medicine | DX: I82.502 Chronic embolism and thrombosis of unspecified deep veins of left lower extremity (principal); Z51.81 Encounter for therapeutic drug level monitoring; Z79.01 Long term (current) use of anticoagulants | CPT/HCPCS: 85610; 99211 ==

== ENCOUNTER → 2021-01-22 08:49 | Outpatient (BNVA) | payer MEDICARE, SELFPAY | PROVIDERS: PCP Family Medicine; Visit Provider Internal Medicine | DX: Z86.718 Personal history of other venous thrombosis and embolism (principal); Z79.01 Long term (current) use of anticoagulants; Z51.81 Encounter for therapeutic drug level monitoring | CPT/HCPCS: 85610; 99211 ==

== ENCOUNTER → 2021-01-29 08:54 | Outpatient (BNVA) | payer MEDICARE, SELFPAY | PROVIDERS: PCP Family Medicine; Visit Provider Internal Medicine | DX: Z86.718 Personal history of other venous thrombosis and embolism (principal); Z79.01 Long term (current) use of anticoagulants; Z51.81 Encounter for therapeutic drug level monitoring | CPT/HCPCS: 85610; 99211 ==

== ENCOUNTER 2021-02-05 12:23 | Emergency (ER) | payer MEDICARE, SELFPAY ==
[2021-02-05 12:40] VITALS: BP 156/94; BP 160/97; PULSE 62; PULSE 71; RESP 16; TEMP 36.8; O2SAT 94; O2SAT 98; BMI 22.1
--- NOTE | 2021-02-05 13:19 | ECG_ITS ---
Test Reason : HTN Blood Pressure : / mmHG Vent. Rate : 060 BPM Atrial Rate : 060 BPM P-R Int : 140 ms QRS Dur : 090 ms QT Int : 428 ms P-R-T Axes : 059 033 051 degrees QTc Int : 428 ms Normal sinus rhythm with sinus arrhythmia Possible Left atrial enlargement Borderline ECG When compared with ECG of 01-OCT-2020 11:54, No significant change was found Referred By: Ruchi Lizama Electronically Signed By:MARSHALL TATE MD
--- NOTE | 2021-02-05 13:20 | ED_ITS ---
HPI - General Adult General Chief complaint: General Medical <Ruchi Lizama PA-C - Last Filed: 02/05/21 14:45> Stated complaint: HTN <Ruchi Lizama PA-C - Last Filed: 02/05/21 14:45> Time Seen by Provider: 02/05/21 12:57 <Ruchi Lizama PA-C - Last Filed: 02/05/21 14:45> Source: patient <Ruchi Lizama PA-C - Last Filed: 02/05/21 14:45> Mode of arrival: EMS <WAN Packer Last Filed: 02/05/21 14:45> Limitations: no limitations <Ruchi Lizama PA-C - Last Filed: 02/05/21 14:45> History of Present Illness HPI narrative: Patient is a 65-year-old male with a past medical history of aortic aneurysm, HTN, ETOH abuse, CKD, DVT, GERD, PVD who is also on Coumadin was transported here from his adult [employer] [facility] for her elevated blood pressures. Patient had reported blood pressures at that facility of 202/130 and 213/123. Upon exam, patient's blood sugars 156/94, he denies chest pain however initially he said he had a little bit of left-sided chest pain but now is denying it, denies shortness of breath, denies headaches or dizziness or blurry vision. States he feels fine, denies abdominal pain or back pain. He states he does have some chronic back pain but it is nerve related. He denies nausea or vomiting or sweating. <Ruchi Lizama PA-C - Last Filed: 02/05/21 14:45> Related Data Home medications: Home Medications Medication Instructions Recorded Confirmed acetaminophen 500 mg PO Q12H PRN 08/06/20 01/29/21 atorvastatin 10 mg PO BEDTIME 08/06/20 01/29/21 buspirone 30 mg PO BID 08/06/20 01/29/21 cholecalciferol (vitamin D3) 25 mcg PO QAM 08/06/20 01/29/21 fluticasone propionate 1 spray INTRANASAL DAILY 08/06/20 01/29/21 folic acid 1 mg PO QAM 08/06/20 01/29/21 lidocaine 1 applic TOPICAL DAILY 08/06/20 01/29/21 lisinopril 2.5 mg PO QAM 08/06/20 01/29/21 loratadine 10 mg PO DAILY 08/06/20 01/29/21 mirtazapine 45 mg PO BEDTIME 08/06/20 01/29/21 phenytoin sodium extended 300 mg PO QAM 08/06/20 01/29/21 thiamine HCl (vitamin B1) 100 mg PO QAM 08/06/20 01/29/21 warfarin 4 mg tablet 4 mg PO 5XW tab 10/31/20 02/12/21 docusate sodium 100 mg capsule 100 mg PO BID 11/13/20 01/29/21 ergocalciferol (vitamin D2) 1,250 0 mcg PO 11/13/20 01/29/21 mcg (50,000 unit) capsule ketoconazole 2 % topical cream appl TOPICAL Q OTHER DAY PRN 11/13/20 01/29/21 naltrexone 50 mg tablet 0 mg PO 11/13/20 01/29/21 Previous Rx's Medication Instructions Recorded omeprazole 20 mg PO DAILY 42 Days #42 cap 08/06/20 sucralfate [Carafate] 1 g PO BID #60 tab 08/06/20 omeprazole 20 mg PO DAILY #30 cap 08/08/20 sucralfate [Carafate] 1 g PO BID #60 tab 08/08/20 warfarin 3 mg tablet 3 mg PO DAILY #90 tab 10/31/20 <Ruchi Lizama PA-C - Last Filed: 02/05/21 14:45> Allergies/adverse reactions: Allergies Allergy/AdvReac Type Severity Reaction Status Date / Time ibuprofen [From Motrin] Allergy Intermediate UNKNOWN Verified 12/04/20 08:40 acetaminophen [From Percocet] Allergy Unknown Verified 12/04/20 08:40 oxycodone Allergy Unknown Verified 12/04/20 08:40 <Ruchi Lizama PA-C - Last Filed: 02/05/21 14:45> Review of Systems Review of Systems: Yes all other systems are reviewed and are negative <Ruchi Lizama PA-C - Last Filed: 02/05/21 14:45> [facility] Past Medical History Medical History: Medical History Alcohol abuse Aortic aneurysm Chronic anticoagulation CKD (chronic kidney disease) Depression DVT (deep venous thrombosis) GERD (gastroesophageal reflux disease) Hemorrhoid Hyperhomocysteinemia Mood disorder Mood disorder due to a general medical condition Peripheral vascular disease Seizure <Ruchi Lizama PA-C - Last Filed: 02/05/21 14:45> Social History Social History: Social History Alcohol intake: current Alcohol intake frequency: a few times a month Alcohol type: beer Smoking Status: Never smoker <Ruchi Lizama PA-C - Last Filed: 02/05/21 14:45> Physical Exam Vital Signs: Vital Signs: Last Vital Signs Temp 98.3 F 02/05/21 12:40 Pulse 62 02/05/21 12:40 Resp 16 02/05/21 12:40 BP 156/94 H 02/05/21 12:40 Pulse Ox 94 02/05/21 12:40 Body Mass Index 22.1 <Ruchi Lizama PA-C - Last Filed: 02/05/21 14:45> Vital Signs: Last Vital Signs Temp 98.3 F 02/05/21 12:40 Pulse 62 02/05/21 12:40 Resp 16 02/05/21 12:40 BP 156/94 H 02/05/21 12:40 Pulse Ox 94 02/05/21 12:40 Body Mass Index 22.1 <Jeff Mendosa MD - Last Filed: 02/24/21 13:35> Const: General: cooperative, healthy appearing, comfortable and no acute distress <Ruchi Lizama PA-C - Last Filed: 02/05/21 14:45> Nutritional Appearance: average body habitus <Ruchi Lizama PA-C - Last Filed: 02/05/21 14:45> Orientation/consciousness: patient oriented x3 <Ruchi Lizama PA-C - Last Filed: 02/05/21 14:45> Eyes: General: appearance normal, both eyes and all related structures <Ruchi Lizama PA-C - Last Filed: 02/05/21 14:45> EOM: EOMs intact bilaterally <Ruchi Lizama PA-C - Last Filed: 02/05/21 14:45> Neck: Neck: Yes normal visual inspection, Yes full ROM, Yes supple and Yes no JVD <BRITTANY PackerKathie - Last Filed: 02/05/21 14:45> Chest: Chest palpation & inspection: normal inspection of the chest and normal palpation of entire chest wall <BRITTANY PackerKathie - Last Filed: 02/05/21 14:45> Resp: Effort & Inspection: normal respiratory effort and able to speak in complete sentences <BRITTANY PackerKathie - Last Filed: 02/05/21 14:45> Auscultation: clear to auscultation bilaterally <JOSE PackerAnirudh Last Filed: 02/05/21 14:45> Cardio: Rate: regular rate <JOSE PackerAnirudh Last Filed: 02/05/21 14:45> Rhythm: regular rhythm <JOSE PackerAnirudh Last Filed: 02/05/21 14:45> Heart sounds: normal S1 and S2 <BRITTANY PackerKathie - Last Filed: 02/05/21 14:45> GI: Inspection: Yes normal to inspection <BRITTANY PackerKathie Andre Last Filed: 02/05/21 14:45> Palpation (GI): Soft to palpation and nontender <BRITTANY PackerKathie Last Filed: 02/05/21 14:45> Skin: General skin exam: no rashes or lesions noted <BRITTANY Packer Kathie Andre Last Filed: 02/05/21 14:45> Neuro: General: patient oriented x3 <Ruchi Lizama PA-C Jes Last Filed: 02/05/21 14:45> Extrem: General: Yes normal to inspection <Ruchi Lizama PA-C Jes Last Filed: 02/05/21 14:45> Course Course Course Narrative: Patient is a 65-year-old male with a past medical history of aortic aneurysm, HTN, ETOH abuse, CKD, DVT, GERD, PVD who is also on Coumadin was transported here from his adult [facility] for her elevated blood pressures. Patient had reported blood pressures at that facility of 202/130 and 213/123. Upon exam, patient's blood sugars 156/94, other VSS. Patient is very well- appearing, physical exam unremarkable. Due to patient's history, will get cardiac workup and likely discharge home. <Ruchi Lizama PA-C - Last Filed: 02/05/21 14:45> I have reviewed the chart <Jeff Mendosa MD - Last Filed: 02/24/21 13:35> Reevaluation(s) Reevaluation #1: All labs WNL however chemistry still pending, EKG normal sinus rhythm, 60 BPM. <Ruchi Lizama PA-C - Last Filed: 02/05/21 14:45> Medical Decision Making Lab Data Lab results reviewed: Yes I reviewed the patient's lab results. <Ruchi Lizama PA-C - Last Filed: 02/05/21 14:45> Result diagrams: : 02/05/21 13:56 02/05/21 13:56 <Ruchi Lizama PA-C - Last Filed: 02/05/21 14:45> Labs: Lab Results 02/05/21 02/05/21 02/05/21 Range/Units 13:56 13:56 13:56 WBC 5.0 (4.8-10.8) X10*3/uL RBC 5.08 (4.60-5.80) X10*6/uL Hgb 17.2 (14.0-18.0) g/dl Hct 50.6 (42-52) % MCV 99.6 H (80-98) fL MCH 33.9 H (27.0-33.0) pg MCHC 34.0 (31.0-36.0) g/dl RDW 12.2 (11.0-16.0) % Plt Count 124 L (160-400) X10*3/uL MPV 9.9 (9.4-12.4) fL Immature Gran % (Auto) 0.2 (0.0-0.4) % Neut % (Auto) 75.6 H (45-73) % Lymph % (Auto) 14.7 L (20-40) % Scurry % (Auto) 7.3 (2-11) % Eos % (Auto) 1.8 (0-4) % Baso % (Auto) 0.4 (0-2) % Lymph # (Auto) 0.7 L (1.2-4.9) X10*3/uL Scurry # (Auto) 0.4 (0.1-1.2) X10*3/uL Eos # (Auto) 0.1 (0.0-0.4) X10*3/uL Baso # (Auto) 0.0 (0.0-0.2) X10*3/uL Abs Immat Gran (auto) 0.01 (0.00-0.03) X10*3/uL Absolute Neuts (auto) 3.8 (2.0-8.3) X10*3/uL Absolute Nucleated RBC 0.000 (0.0-0.012) X10*3/uL Nucleated RBC % (auto) 0.0 (0.0-0.2) /100WBC PT 37.5 H D (10.8-13.0) SEC INR 3.1 H (0.9-1.1) APTT 42.8 H (24.1-38.0) SEC Sodium 137 (135-145) mmol/L Potassium 4.9 (3.3-5.1) mmol/L Chloride 104 (96-108) mmol/L Carbon Dioxide 27 (22-29) mmol/L Anion Gap 11 L (12-20) BUN 24 H (9-16) mg/dL Creatinine 1.32 (0.5-1.4) mg/dL Estim Creat Clear Calc 52.2 Estimated GFR 54 Random Glucose 102 (60-115) mg/dL Calcium 9.3 (8.4-10.2) mg/dL Troponin I High Sens (<3.5-35.0) ng/L 02/05/21 Range/Units 13:56 WBC (4.8-10.8) X10*3/uL RBC (4.60-5.80) X10*6/uL Hgb (14.0-18.0) g/dl Hct (42-52) % MCV (80-98) fL MCH (27.0-33.0) pg MCHC (31.0-36.0) g/dl RDW (11.0-16.0) % Plt Count (160-400) X10*3/uL MPV (9.4-12.4) fL Immature Gran % (Auto) (0.0-0.4) % Neut % (Auto) (45-73) % Lymph % (Auto) (20-40) % Scurry % (Auto) (2-11) % Eos % (Auto) (0-4) % Baso % (Auto) (0-2) % Lymph # (Auto) (1.2-4.9) X10*3/uL Scurry # (Auto) (0.1-1.2) X10*3/uL Eos # (Auto) (0.0-0.4) X10*3/uL Baso # (Auto) (0.0-0.2) X10*3/uL Abs Immat Gran (auto) (0.00-0.03) X10*3/uL Absolute Neuts (auto) (2.0-8.3) X10*3/uL Absolute Nucleated RBC (0.0-0.012) X10*3/uL Nucleated RBC % (auto) (0.0-0.2) /100WBC PT (10.8-13.0) SEC INR (0.9-1.1) APTT (24.1-38.0) SEC Sodium (135-145) mmol/L Potassium (3.3-5.1) mmol/L Chloride (96-108) mmol/L Carbon Dioxide (22-29) mmol/L Anion Gap (12-20) BUN (9-16) mg/dL Creatinine (0.5-1.4) mg/dL Estim Creat Clear Calc Estimated GFR Random Glucose (60-115) mg/dL Calcium (8.4-10.2) mg/dL Troponin I High Sens 9.2 (<3.5-35.0) ng/L <Ruchi Lizama PA-C - Last Filed: 02/05/21 14:45> Lab Results 02/05/21 02/05/21 02/05/21 Range/Units 13:56 13:56 13:56 WBC 5.0 (4.8-10.8) X10*3/uL RBC 5.08 (4.60-5.80) X10*6/uL Hgb 17.2 (14.0-18.0) g/dl Hct 50.6 (42-52) % MCV 99.6 H (80-98) fL MCH 33.9 H (27.0-33.0) pg MCHC 34.0 (31.0-36.0) g/dl RDW 12.2 (11.0-16.0) % Plt Count 124 L (160-400) X10*3/uL MPV 9.9 (9.4-12.4) fL Immature Gran % (Auto) 0.2 (0.0-0.4) % Neut % (Auto) 75.6 H (45-73) % Lymph % (Auto) 14.7 L (20-40) % Scurry % (Auto) 7.3 (2-11) % Eos % (Auto) 1.8 (0-4) % Baso % (Auto) 0.4 (0-2) % Lymph # (Auto) 0.7 L (1.2-4.9) X10*3/uL Scurry # (Auto) 0.4 (0.1-1.2) X10*3/uL Eos # (Auto) 0.1 (0.0-0.4) X10*3/uL Baso # (Auto) 0.0 (0.0-0.2) X10*3/uL Abs Immat Gran (auto) 0.01 (0.00-0.03) X10*3/uL Absolute Neuts (auto) 3.8 (2.0-8.3) X10*3/uL Absolute Nucleated RBC 0.000 (0.0-0.012) X10*3/uL Nucleated RBC % (auto) 0.0 (0.0-0.2) /100WBC PT 37.5 H D (10.8-13.0) SEC INR 3.1 H (0.9-1.1) APTT 42.8 H (24.1-38.0) SEC Sodium 137 (135-145) mmol/L Potassium 4.9 (3.3-5.1) mmol/L Chloride 104 (96-108) mmol/L Carbon Dioxide 27 (22-29) mmol/L Anion Gap 11 L (12-20) BUN 24 H (9-16) mg/dL Creatinine 1.32 (0.5-1.4) mg/dL Estim Creat Clear Calc 52.2 Estimated GFR 54 Random Glucose 102 (60-115) mg/dL Calcium 9.3 (8.4-10.2) mg/dL Troponin I High Sens (<3.5-35.0) ng/L 02/05/21 Range/Units 13:56 WBC (4.8-10.8) X10*3/uL RBC (4.60-5.80) X10*6/uL Hgb (14.0-18.0) g/dl Hct (42-52) % MCV (80-98) fL MCH (27.0-33.0) pg MCHC (31.0-36.0) g/dl RDW (11.0-16.0) % Plt Count (160-400) X10*3/uL MPV (9.4-12.4) fL Immature Gran % (Auto) (0.0-0.4) % Neut % (Auto) (45-73) % Lymph % (Auto) (20-40) % Scurry % (Auto) (2-11) % Eos % (Auto) (0-4) % Baso % (Auto) (0-2) % Lymph # (Auto) (1.2-4.9) X10*3/uL Scurry # (Auto) (0.1-1.2) X10*3/uL Eos # (Auto) (0.0-0.4) X10*3/uL Baso # (Auto) (0.0-0.2) X10*3/uL Abs Immat Gran (auto) (0.00-0.03) X10*3/uL Absolute Neuts (auto) (2.0-8.3) X10*3/uL Absolute Nucleated RBC (0.0-0.012) X10*3/uL Nucleated RBC % (auto) (0.0-0.2) /100WBC PT (10.8-13.0) SEC INR (0.9-1.1) APTT (24.1-38.0) SEC Sodium (135-145) mmol/L Potassium (3.3-5.1) mmol/L Chloride (96-108) mmol/L Carbon Dioxide (22-29) mmol/L Anion Gap (12-20) BUN (9-16) mg/dL Creatinine (0.5-1.4) mg/dL Estim Creat Clear Calc Estimated GFR Random Glucose (60-115) mg/dL Calcium (8.4-10.2) mg/dL Troponin I High Sens 9.2 (<3.5-35.0) ng/L <Jeff Mendosa MD - Last Filed: 02/24/21 13:35> Discharge Plan Discharge Clinical Impression: Transient elevated blood pressure <Ruchi Lizama PA-C - Last Filed: 02/05/21 14:45> Patient Disposition: Home, Self-Care <Ruchi Lizama PA-C - Last Filed: 02/05/21 14:45> Instructions: Hypertension in the Older Adult (ED) <Ruchi Lizama PA-C - Last Filed: 02/05/21 14:45> Additional Instructions: Today all of your labs and her EKG were all normal, your blood pressure while in the ED was just slightly elevated, please follow-up with your PCP as you may need an increase in her blood pressure medication. Your blood pressure while in the ED again was not as high as it was in the adult day health facility. If you experience any further elevated blood pressures, chest pain or shortness of breath, please call 911 or return to the emergency department. <Ruchi Lizama PA-C - Last Filed: 02/05/21 14:45> Prescriptions: No Action atorvastatin 10 mg tablet 10 mg PO BEDTIME RF: 0 lidocaine 5 % cream 1 applic topical DAILY RF: 0 thiamine HCl (vitamin B1) 100 mg tablet 100 mg PO QAM RF: 0 phenytoin sodium extended 100 mg capsule 300 mg PO QAM RF: 0 acetaminophen 500 mg tablet 500 mg PO Q12H PRN (Reason: Pain (Scale Score 1-3)) RF: 0 buspirone 30 mg tablet 30 mg PO BID RF: 0 mirtazapine 45 mg tablet 45 mg PO BEDTIME RF: 0 folic acid 1 mg tablet 1 mg PO QAM RF: 0 fluticasone propionate 50 mcg/actuation spray,suspension 1 spray intranasal DAILY RF: 0 lisinopril 2.5 mg tablet 2.5 mg PO QAM RF: 0 loratadine 10 mg tablet 10 mg PO DAILY RF: 0 cholecalciferol (vitamin D3) 25 mcg (1,000 unit) tablet 25 mcg PO QAM RF: 0 omeprazole 20 mg capsule,delayed release(DR/EC) 20 mg PO DAILY 42 Days Qty: 42 RF: 0 sucralfate [Carafate] 1 gram tablet 1 g PO BID Qty: 60 RF: 0 omeprazole 20 mg capsule,delayed release(DR/EC) 20 mg PO DAILY Qty: 30 RF: 0 sucralfate [Carafate] 1 gram tablet 1 g PO BID Qty: 60 RF: 0 warfarin 3 mg tablet 3 mg PO DAILY Qty: 90 RF: 0 warfarin 4 mg tablet 4 mg PO 5XW RF: 0 ketoconazole 2 % cream topical Q OTHER DAY PRNRF: 0 docusate sodium 100 mg capsule 100 mg PO BID RF: 0 naltrexone 50 mg tablet 0 mg PO RF: 0 ergocalciferol (vitamin D2) 1,250 mcg (50,000 unit) capsule 0 mcg PO RF: 0 <Ruchi Lizama PA-C - Last Filed: 02/05/21 14:45> Referrals: Veronica Gallardo MD [Primary Care Provider] - 2 days (elevated BP) <Ruchi Lizama PA-C - Last Filed: 02/05/21 14:45> Interventions: ED Discharge Assessment Last Done: 02/05/21 15:54 <Ruchi Lizama PA-C - Last Filed: 02/05/21 14:45> Discharge Date/Time: 02/05/21 15:55 <Ruchi Lizama PA-C - Last Filed: 02/05/21 14:45>
[2021-02-05 14:05] LABS: Eosinophils Absolute Auto 0.1 X10*3/uL (0.0-0.4); Eosinophils Percent Auto 1.8 % (0-4); PLT CLUMP 1; Red Cell Distribution Width 12.2 % (11.0-16.0); SCAN SMEAR FLAG 1
[2021-02-05 14:07] LABS: Basophils Percent Auto 0.4 % (0-2); Hematocrit 50.6 % (42-52); Hemoglobin 17.2 g/dl (14.0-18.0); Imm Gran Abs Auto 0.01 X10*3/uL (0.00-0.03); Imm Gran Pct Auto 0.2 % (0.0-0.4); Lymphocytes Absolute Auto 0.7 X10*3/uL (1.2-4.9); Lymphocytes Percent Auto 14.7 % (20-40); Mean Corpuscular Hemoglobin 33.9 pg (27.0-33.0); Mean Corpuscular Volume 99.6 fL (80-98); Mean Platelet Volume 9.9 fL (9.4-12.4); Monocytes Absolute Auto 0.4 X10*3/uL (0.1-1.2); Monocytes Percent Auto 7.3 % (2-11); Neutrophils Absolute Auto 3.8 X10*3/uL (2.0-8.3); Neutrophils Percent Auto 75.6 % (45-73); Platelet Count 124 X10*3/uL (160-400); Red Blood Count 5.08 X10*6/uL (4.60-5.80)
[2021-02-05 14:09] LABS: INTERNATIONAL NORM RATIO 3.1 (0.9-1.1); Prothrombin Time 37.5 SEC (10.8-13.0)
[2021-02-05 14:12] LABS: Partial Thromboplastin Time 42.8 SEC (24.1-38.0)
[2021-02-05 14:26] LABS: Anion Gap 11 (12-20); Blood Urea Nitrogen 24 mg/dL (9-16); Calcium 9.3 mg/dL (8.4-10.2); Carbon Dioxide 27 mmol/L (22-29); Chloride 104 mmol/L (96-108); Creatinine Clr Calc Pharmacy 52.2; Estimated Glomerular Filt Rate 54; Glucose Random 102 mg/dL (60-115); Potassium 4.9 mmol/L (3.3-5.1); Sodium 137 mmol/L (135-145)
[2021-02-05 14:34] LABS: Troponin-I High Sensitivity 9.2 ng/L (<3.5-35.0)
== END 2021-02-05 15:55 | disposition home or self-care (01) ==
PROVIDERS: Physician Assistant; Emergency Provider Emergency Medicine; PCP Family Medicine
DX: I12.9 Hypertensive chronic kidney disease with stage 1 through stage 4 chronic kidney disease, or unspecified chronic kidney disease (principal); N18.9 Chronic kidney disease, unspecified; F10.10 Alcohol abuse, uncomplicated; Y90.9 Presence of alcohol in blood, level not specified; Z86.718 Personal history of other venous thrombosis and embolism; Z79.01 Long term (current) use of anticoagulants
CPT/HCPCS: 36415; 80048; 84484; 85025; 85610; 85730; 93005; 99283; 99284

== ENCOUNTER → 2021-02-12 08:55 | Outpatient (BNVA) | payer MEDICARE, SELFPAY | PROVIDERS: PCP Family Medicine; Visit Provider Internal Medicine | DX: Z86.718 Personal history of other venous thrombosis and embolism (principal); Z79.01 Long term (current) use of anticoagulants; Z51.81 Encounter for therapeutic drug level monitoring | CPT/HCPCS: 85610; 99211 ==

== ENCOUNTER → 2021-02-26 09:02 | Outpatient (BNVA) | payer MEDICARE, SELFPAY | PROVIDERS: PCP Family Medicine; Visit Provider Internal Medicine | DX: Z86.718 Personal history of other venous thrombosis and embolism (principal); Z51.81 Encounter for therapeutic drug level monitoring; Z79.01 Long term (current) use of anticoagulants | CPT/HCPCS: 85610; 99211 ==

== ENCOUNTER → 2021-03-19 09:10 | Outpatient (BNVA) | payer MEDICARE, SELFPAY | PROVIDERS: PCP Family Medicine; Visit Provider Internal Medicine | DX: Z86.718 Personal history of other venous thrombosis and embolism (principal); Z51.81 Encounter for therapeutic drug level monitoring; Z79.01 Long term (current) use of anticoagulants | CPT/HCPCS: 85610; 99211 ==

== ENCOUNTER → 2021-04-02 08:45 | Outpatient (BNVA) | payer MEDICARE, SELFPAY | PROVIDERS: PCP Family Medicine; Visit Provider Internal Medicine | DX: Z86.718 Personal history of other venous thrombosis and embolism (principal); Z51.81 Encounter for therapeutic drug level monitoring; Z79.01 Long term (current) use of anticoagulants | CPT/HCPCS: 85610; 99211 ==

== ENCOUNTER 2021-04-08 08:34 | Outpatient (REF) | payer MEDICARE, SELFPAY ==
[2021-04-08 09:55] LABS: Hematocrit 51.1 % (42-52); MANUAL DIFF FLAG SCAN; PLT CLUMP 1; Red Cell Distribution Width 12.3 % (11.0-16.0); SCAN SMEAR FLAG 1
[2021-04-08 09:57] LABS: Basophils Percent Auto 0.7 % (0-2); Eosinophils Absolute Auto 0.2 X10*3/uL (0.0-0.4); Eosinophils Percent Auto 5.3 % (0-4); Hemoglobin 17.2 g/dl (14.0-18.0); Imm Gran Abs Auto 0.03 X10*3/uL (0.00-0.03); Imm Gran Pct Auto 0.7 % (0.0-0.4); Lymphocytes Absolute Auto 0.9 X10*3/uL (1.2-4.9); Lymphocytes Percent Auto 19.6 % (20-40); Mean Corpuscular HGB Conc 33.7 g/dl (31.0-36.0); Mean Platelet Volume 10.4 fL (9.4-12.4); Monocytes Absolute Auto 0.4 X10*3/uL (0.1-1.2); Monocytes Percent Auto 8.4 % (2-11); Neutrophils Absolute Auto 2.9 X10*3/uL (2.0-8.3); Neutrophils Percent Auto 65.3 % (45-73); Platelet Count 118 X10*3/uL (160-400); Red Blood Count 5.06 X10*6/uL (4.60-5.80); White Blood Count 4.4 X10*3/uL (4.8-10.8)
[2021-04-08 10:24] LABS: Anion Gap 10 (12-20); Blood Urea Nitrogen 27 mg/dL (9-16); Calcium 9.1 mg/dL (8.4-10.2); Carbon Dioxide 26 mmol/L (22-29); Chloride 107 mmol/L (96-108); Estimated Glomerular Filt Rate 47; Sodium 138 mmol/L (135-145)
[2021-04-08 10:31] LABS: Creatinine Urine 80.37 mg/dL; Protein/Creatinine Ratio, Ur 0.27 (<0.2); Total Protein Urine Random 22 mg/dL (<12)
[2021-04-09 16:06] LABS: Calcium (PTHI) 9.2 mg/dL (8.6-10.3); PTHI 268 pg/mL (14-64)
== END 2021-04-08 08:35 | disposition home or self-care (01) ==
LOC: HO.LAB 08:34
PROVIDERS: PCP Family Medicine; Visit Provider Internal Medicine Hypertension Specialist
DX: I10 Essential (primary) hypertension (principal)
CPT/HCPCS: 36415; 80051; 82310; 82565; 83970; 84156; 84520; 85025

== ENCOUNTER → 2021-04-16 09:00 | Outpatient (BNVA) | payer MEDICARE, SELFPAY | PROVIDERS: PCP Family Medicine; Visit Provider Internal Medicine | DX: Z86.718 Personal history of other venous thrombosis and embolism (principal); Z51.81 Encounter for therapeutic drug level monitoring; Z79.01 Long term (current) use of anticoagulants | CPT/HCPCS: 85610; 99211 ==

== ENCOUNTER 2021-04-21 13:38 | Emergency (ER) | payer MEDICARE, SELFPAY ==
--- NOTE | 2021-04-21 | ECG_ITS ---
Test Reason : CHEST PAIN Blood Pressure : / mmHG Vent. Rate : 062 BPM Atrial Rate : 062 BPM P-R Int : 140 ms QRS Dur : 086 ms QT Int : 426 ms P-R-T Axes : 043 036 048 degrees QTc Int : 432 ms Normal sinus rhythm Normal ECG When compared with ECG of 05-FEB-2021 13:42, No significant change was found Referred By: Generic ED Physician Electronically Signed By:Amari Mulligan
--- NOTE | ~2021-04-21 | XR_ITS ---
EXAMINATION: XR CHEST CLINICAL INFORMATION: Chest pain COMPARISON: None TECHNIQUE: Frontal view of the chest was obtained. FINDINGS: The lungs are hyperexpanded but clear. The heart size and pulmonary vascularity is normal. No gross bony abnormality. XR/XR chest 1V IMPRESSION: Hyperexpanded lungs without acute process.
[2021-04-21 13:51] VITALS: BP 117/78; BP 125/77; PULSE 62; PULSE 67; RESP 16; TEMP 37; O2SAT 97; BMI 23.1
[2021-04-21 13:57] VITALS: BP 117/78; PULSE 62; RESP 16; TEMP 37; O2SAT 97
--- NOTE | 2021-04-21 14:09 | ED_ITS ---
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 Patient had similar pain in the past and has evaluate weighted in the emergency room for similar symptoms. Patient now has no chest pain or difficulty breathing. Patient was given Nitrol by EMS but patient already had no chest pain. Related Data Home Medications Medication Instructions Recorded Confirmed acetaminophen 500 mg PO Q12H PRN 08/06/20 03/19/21 atorvastatin 10 mg PO BEDTIME 08/06/20 03/19/21 buspirone 30 mg PO BID 08/06/20 03/19/21 cholecalciferol (vitamin D3) 25 mcg PO QAM 08/06/20 03/19/21 fluticasone propionate 1 spray INTRANASAL DAILY 08/06/20 03/19/21 folic acid 1 mg PO QAM 08/06/20 03/19/21 lidocaine 1 applic TOPICAL DAILY 08/06/20 03/19/21 lisinopril 2.5 mg PO QAM 08/06/20 03/19/21 loratadine 10 mg PO DAILY 08/06/20 03/19/21 mirtazapine 45 mg PO BEDTIME 08/06/20 03/19/21 phenytoin sodium extended 300 mg PO QAM 08/06/20 03/19/21 thiamine HCl (vitamin B1) 100 mg PO QAM 08/06/20 03/19/21 warfarin 4 mg tablet 4 mg PO 5XW tab 10/31/20 04/16/21 docusate sodium 100 mg capsule 100 mg PO BID 11/13/20 03/19/21 ergocalciferol (vitamin D2) 1,250 0 mcg PO 11/13/20 03/19/21 mcg (50,000 unit) capsule ketoconazole 2 % topical cream appl TOPICAL Q OTHER DAY PRN 11/13/20 03/19/21 naltrexone 50 mg tablet 0 mg PO 11/13/20 03/19/21 Previous Rx's Medication Instructions Recorded omeprazole 20 mg PO DAILY 42 Days #42 cap 08/06/20 sucralfate [Carafate] 1 g PO BID #60 tab 08/06/20 omeprazole 20 mg PO DAILY #30 cap 08/08/20 sucralfate [Carafate] 1 g PO BID #60 tab 08/08/20 warfarin 3 mg tablet 3 mg PO DAILY #90 tab 10/31/20 Allergies Allergy/AdvReac Type Severity Reaction Status Date / Time ibuprofen [From Motrin] Allergy Intermediate UNKNOWN Verified 04/21/21 13:51 acetaminophen [From Percocet] Allergy Unknown Verified 04/21/21 13:51 oxycodone Allergy Unknown Verified 04/21/21 13:51 Review of Systems Review of Systems: All other systems are reviewed and are negative Constitutional: Reports as per HPI and Reports no additional constitutional complaints Eyes: Reports as per HPI and Reports no additional eye complaints Reports system reviewed and no additional complaints, except as documented Cardiovascular: Reports as per HPI and Reports no additional cardiovascular complaints Respiratory: Reports as per HPI and Reports no additional respiratory complaints Gastrointestinal: Reports as per HPI and Reports no additional gastrointestinal complaints Genitourinary: Reports no additional female genitourinary complaints Musculoskeletal: Reports no additional musculoskeletal complaints Skin/Breast: Reports system reviewed and no additional complaints, except as docu Psychiatric: Reports no additional psychiatric complaints Endocrine: Reports no additional endocrine complaints Hematologic/Lymphatic: Reports no additional hematologic/lymphatic complaints Allergic/Immunologic: Reports no additional allergic/immunologic complaints Reports system reviewed and no additional complaints, except as documented and Reports Abnormal speech present [facility] Past Medical History Medical History Alcohol abuse Aortic aneurysm Chronic anticoagulation CKD (chronic kidney disease) Depression DVT (deep venous thrombosis) GERD (gastroesophageal reflux disease) Hemorrhoid Hyperhomocysteinemia Mood disorder Mood disorder due to a general medical condition Peripheral vascular disease Seizure Social History Social History Alcohol intake: current Alcohol intake frequency: a few times a month Alcohol type: beer Patient Tobacco Use Status: Never used Tobacco Use of substances other than those prescribed or required for medical reasons: No Advance Directives: No Advance Directives Information Provided: No Physical Exam Vital Signs: Vital Signs: Last Vital Signs Temp 98.6 F 04/21/21 13:57 Pulse 55 04/21/21 16:00 Resp 16 04/21/21 16:00 BP 130/81 04/21/21 16:00 Pulse Ox 96 04/21/21 16:00 Body Mass Index 23.1 Vital signs have been reviewed as appeared to be correct. Blood pressure normal. Heart rate normal. Respiration rate normal. Temperature normal. Oxygen saturation normal. Appearance: Alert. Oriented X3. No acute distress. Head: Normal external exam. Normocephalic. Atraumatic. No Boothe signs noted. No raccoon eyes noted Eyes: PERRLA. EOMI. Conjunctiva and sclera normal. Eyelids normal. ENT: TM's Normal. Pharynx normal. Uvula midline. Moist mucous membranes. No trismus noted. No drooling noted. No muffled voice noted. Neck: Normal inspection. Neck supple. FROM. No adenopathy. Thyroid Normal. No meningeal signs. No neck mass noted. CVS: Normal heart rate and rhythm. Heart sound normal. No murmurs noted. Pulses normal throughout. Respiratory: No respiratory distress. Painless inspiration. Breath sounds normal. No wheezes/rales/rhonchi noted. Chest nontender. No accessory muscle usage noted or decreased air movement noted. Abdomen: Soft and nontender. Bowel sounds normal in all 4 quadrants. No distention noted. No organomegaly noted. No visible injury noted. Back: No CVA tenderness. Full range of motion noted. Skin: Skin warm and dry. Normal skin color. Normal skin turgor. No rashes/lesions/lacerations noted. Extremities: No lower extremity edema. Extremities exhibit normal range of motion. Extremities nontender. Neuro: Oriented X 3. No motor deficit. No sensory deficit. Reflexes normal. Course Course Course Narrative: Assessment and plan. 65-year-old male came in for evaluation of chest pain all was walking, patient had previous similar presentation in the past with all was negative workup. Patient remain in the emergency department waiting for his blood workup has no chest pain. Troponin x2 with no delta change. EKG is unremarkable, chest x-ray also is unremarkable. MDM - Chest Pain Lab Data Attestation: I reviewed the patient's lab results. Result diagrams: 04/21/21 15:02 04/21/21 15:02 Labs: Lab Results 04/21/21 04/21/21 04/21/21 Range/Units 15:02 15:02 15:02 WBC 5.4 (4.8-10.8) X10*3/uL RBC 4.58 L (4.60-5.80) X10*6/uL Hgb 15.6 (14.0-18.0) g/dl Hct 45.2 (42-52) % MCV 98.7 H (80-98) fL MCH 34.1 H (27.0-33.0) pg MCHC 34.5 (31.0-36.0) g/dl RDW 12.2 (11.0-16.0) % Plt Count 126 L (160-400) X10*3/uL MPV 10.3 (9.4-12.4) fL Immature Gran % (Auto) 0.6 H (0.0-0.4) % Neut % (Auto) 70.8 (45-73) % Lymph % (Auto) 14.4 L (20-40) % Drew % (Auto) 8.3 (2-11) % Eos % (Auto) 5.5 H (0-4) % Baso % (Auto) 0.4 (0-2) % Lymph # (Auto) 0.8 L (1.2-4.9) X10*3/uL Drew # (Auto) 0.5 (0.1-1.2) X10*3/uL Eos # (Auto) 0.3 (0.0-0.4) X10*3/uL Baso # (Auto) 0.0 (0.0-0.2) X10*3/uL Abs Immat Gran (auto) 0.03 (0.00-0.03) X10*3/uL Absolute Neuts (auto) 3.8 (2.0-8.3) X10*3/uL Absolute Nucleated RBC 0.000 (0.0-0.012) X10*3/uL Nucleated RBC % (auto) 0.0 (0.0-0.2) /100WBC Sodium 140 (135-145) mmol/L Potassium 4.8 (3.3-5.1) mmol/L Chloride 105 (96-108) mmol/L Carbon Dioxide 27 (22-29) mmol/L Anion Gap 13 (12-20) BUN 27 H (9-16) mg/dL Creatinine 1.35 (0.5-1.4) mg/dL Estim Creat Clear Calc 53.0 Estimated GFR 53 Random Glucose 86 (60-115) mg/dL Calcium 9.2 (8.4-10.2) mg/dL Troponin I High Sens 7.5 (<3.5-35.0) ng/L Imaging Data Chest x-ray: Radiologist's impression: Hyperexpanded lungs without acute process. ECG Data ECG #1: Interpretation: Normal sinus rhythm 62 beats per minute, normal axis deviation, normal intervals, no ST-T changes. Discharge Plan Discharge Clinical Impression: Chest pain Qualifiers: Chest pain type: unspecified Qualified Code(s): R07.9 - Chest pain, unspecified Patient Disposition: Home, Self-Care Instructions: Angina (ED) Prescriptions: No Action atorvastatin 10 mg tablet 10 mg PO BEDTIME RF: 0 lidocaine 5 % cream 1 applic topical DAILY RF: 0 thiamine HCl (vitamin B1) 100 mg tablet 100 mg PO QAM RF: 0 phenytoin sodium extended 100 mg capsule 300 mg PO QAM RF: 0 acetaminophen 500 mg tablet 500 mg PO Q12H PRN (Reason: Pain (Scale Score 1-3)) RF: 0 buspirone 30 mg tablet 30 mg PO BID RF: 0 mirtazapine 45 mg tablet 45 mg PO BEDTIME RF: 0 folic acid 1 mg tablet 1 mg PO QAM RF: 0 fluticasone propionate 50 mcg/actuation spray,suspension 1 spray intranasal DAILY RF: 0 lisinopril 2.5 mg tablet 2.5 mg PO QAM RF: 0 loratadine 10 mg tablet 10 mg PO DAILY RF: 0 cholecalciferol (vitamin D3) 25 mcg (1,000 unit) tablet 25 mcg PO QAM RF: 0 omeprazole 20 mg capsule,delayed release(DR/EC) 20 mg PO DAILY 42 Days Qty: 42 RF: 0 sucralfate [Carafate] 1 gram tablet 1 g PO BID Qty: 60 RF: 0 omeprazole 20 mg capsule,delayed release(DR/EC) 20 mg PO DAILY Qty: 30 RF: 0 sucralfate [Carafate] 1 gram tablet 1 g PO BID Qty: 60 RF: 0 warfarin 3 mg tablet 3 mg PO DAILY Qty: 90 RF: 0 warfarin 4 mg tablet 4 mg PO 5XW RF: 0 ketoconazole 2 % cream topical Q OTHER DAY PRNRF: 0 docusate sodium 100 mg capsule 100 mg PO BID RF: 0 naltrexone 50 mg tablet 0 mg PO RF: 0 ergocalciferol (vitamin D2) 1,250 mcg (50,000 unit) capsule 0 mcg PO RF: 0 Referrals: Veronica Gallardo MD [Primary Care Provider] - 2 days Karri Trinidad MD [Physician] - 2 days
[2021-04-21 15:08] LABS: MANUAL DIFF FLAG NO
[2021-04-21 15:30] LABS: Anion Gap 13 (12-20); Blood Urea Nitrogen 27 mg/dL (9-16); Calcium 9.2 mg/dL (8.4-10.2); Carbon Dioxide 27 mmol/L (22-29); Chloride 105 mmol/L (96-108); Estimated Glomerular Filt Rate 53; Glucose Random 86 mg/dL (60-115); Potassium 4.8 mmol/L (3.3-5.1); Sodium 140 mmol/L (135-145)
[2021-04-21 15:36] LABS: Troponin-I High Sensitivity 7.5 ng/L (<3.5-35.0)
[2021-04-21 15:45] LABS: Basophils Percent Auto 0.4 % (0-2); Eosinophils Absolute Auto 0.3 X10*3/uL (0.0-0.4); Eosinophils Percent Auto 5.5 % (0-4); Hematocrit 45.2 % (42-52); Hemoglobin 15.6 g/dl (14.0-18.0); Imm Gran Abs Auto 0.03 X10*3/uL (0.00-0.03); Imm Gran Pct Auto 0.6 % (0.0-0.4); Lymphocytes Absolute Auto 0.8 X10*3/uL (1.2-4.9); Lymphocytes Percent Auto 14.4 % (20-40); Mean Corpuscular HGB Conc 34.5 g/dl (31.0-36.0); Mean Corpuscular Hemoglobin 34.1 pg (27.0-33.0); Mean Corpuscular Volume 98.7 fL (80-98); Mean Platelet Volume 10.3 fL (9.4-12.4); Monocytes Absolute Auto 0.5 X10*3/uL (0.1-1.2); Monocytes Percent Auto 8.3 % (2-11); Neutrophils Absolute Auto 3.8 X10*3/uL (2.0-8.3); Neutrophils Percent Auto 70.8 % (45-73); Platelet Count 126 X10*3/uL (160-400); Red Blood Count 4.58 X10*6/uL (4.60-5.80); Red Cell Distribution Width 12.2 % (11.0-16.0); White Blood Count 5.4 X10*3/uL (4.8-10.8)
[2021-04-21 16:00] VITALS: BP 130/81; PULSE 55; RESP 16; O2SAT 96
[2021-04-21 19:20] VITALS: BP 126/81; PULSE 53; RESP 17; O2SAT 96
[2021-04-21 19:38] LABS: Troponin-I High Sensitivity 7.5 ng/L (<3.5-35.0)
== END 2021-04-21 20:33 | disposition home or self-care (01) ==
PROVIDERS: Emergency Provider Emergency Medicine; PCP Family Medicine
DX: R07.9 Chest pain, unspecified (principal); E78.5 Hyperlipidemia, unspecified; N18.9 Chronic kidney disease, unspecified; Z86.718 Personal history of other venous thrombosis and embolism; Z79.01 Long term (current) use of anticoagulants; Z79.02 Long term (current) use of antithrombotics/antiplatelets
CPT/HCPCS: 36415; 71045; 80048; 84484; 85025; 93005; 99283; 99285

== ENCOUNTER → 2021-04-30 08:45 | Outpatient (BNVA) | payer MEDICARE, SELFPAY | PROVIDERS: PCP Family Medicine; Visit Provider Internal Medicine | DX: Z86.718 Personal history of other venous thrombosis and embolism (principal); Z51.81 Encounter for therapeutic drug level monitoring; Z79.01 Long term (current) use of anticoagulants | CPT/HCPCS: 85610; 99211 ==

== ENCOUNTER → 2021-05-14 08:44 | Outpatient (BNVA) | payer MEDICARE, SELFPAY | PROVIDERS: PCP Family Medicine; Visit Provider Internal Medicine | DX: Z86.718 Personal history of other venous thrombosis and embolism (principal); Z51.81 Encounter for therapeutic drug level monitoring; Z79.01 Long term (current) use of anticoagulants | CPT/HCPCS: 85610; 99211 ==

== ENCOUNTER → 2021-05-28 09:17 | Outpatient (BNVA) | payer MEDICARE, SELFPAY | PROVIDERS: PCP Family Medicine; Visit Provider Internal Medicine | DX: Z86.718 Personal history of other venous thrombosis and embolism (principal); Z51.81 Encounter for therapeutic drug level monitoring; Z79.01 Long term (current) use of anticoagulants | CPT/HCPCS: 85610; 99211 ==

== ENCOUNTER → 2021-06-11 09:17 | Outpatient (BNVA) | payer MEDICARE, SELFPAY | PROVIDERS: PCP Family Medicine; Visit Provider Internal Medicine | DX: Z86.718 Personal history of other venous thrombosis and embolism (principal); Z51.81 Encounter for therapeutic drug level monitoring; Z79.01 Long term (current) use of anticoagulants | CPT/HCPCS: 85610; 99211 ==

== ENCOUNTER → 2021-06-25 09:27 | Outpatient (BNVA) | payer MEDICARE, SELFPAY | PROVIDERS: PCP Family Medicine; Visit Provider Internal Medicine | DX: Z86.718 Personal history of other venous thrombosis and embolism (principal); Z51.81 Encounter for therapeutic drug level monitoring; Z79.01 Long term (current) use of anticoagulants | CPT/HCPCS: 85610; 99211 ==

== ENCOUNTER → 2021-07-02 09:55 | Outpatient (BNVA) | payer MEDICARE, SELFPAY | PROVIDERS: PCP Family Medicine; Visit Provider Internal Medicine | DX: Z86.718 Personal history of other venous thrombosis and embolism (principal); Z51.81 Encounter for therapeutic drug level monitoring; Z79.01 Long term (current) use of anticoagulants | CPT/HCPCS: 85610; 99211 ==

== ENCOUNTER 2021-08-27 08:43 | Outpatient (REF) | payer MEDICARE, SELFPAY ==
--- NOTE | ~2021-08-27 | MR_ITS ---
EXAMINATION: MR LUMBAR SPINE WITHOUT CONTRAST CLINICAL INFORMATION: 66-year-old with chronic low back pain and abnormal gait. Anterolisthesis. COMPARISON: 06/07/2018 lumbar x-rays. TECHNIQUE: MRI of the lumbar spine was obtained using routine sequences without contrast. FINDINGS: Coronal Alignment: Slight lower lumbar levocurvature noted with minimal [id number]-jk-[id number] lateral listhesis at L4-L5. Sagittal Alignment: There is 2.5 mm of grade 1 degenerative spondylolisthesis at L4-L5 without spondylolysis. Otherwise, lumbar lordotic curvature is maintained. Lumbosacral Junction: Normal. Vertebral Bodies: Normal height. Disc Spaces and Endplates: Zyfluakp-da-oarark disc space height loss at L5-S1 is noted with intradiscal degenerative signal changes and Schmorl's nodes with moderate anterolateral spondylosis. Blgk-np-zvoeqfbu disc space height loss at L4-L5 is noted with intradiscal degenerative signal changes and moderate anterolateral spondylosis. Mild disc space height loss and disc desiccation at L3-L4 and moderate disc space height loss with disc desiccation at L2-L3 with mild degrees of anterolateral spondylosis at these levels. There is anterior marginal spondylosis asymmetric to the right at T12-L1. Spinal Canal: No abnormal developmental findings. Bone Marrow: No significant marrow-replacing process or bone marrow edema. There are type II degenerative bone marrow signal changes along the endplates at L5-S1 and L4-L5 and, to a lesser degree, anteriorly at L3-L4 and L2-L3. Conus Medullaris: Terminates at T12. Morphology and signal is normal. Intradural Nerve Roots: Within normal limits. L5-S1: Diffuse disc bulging is noted with a superimposed broad-based central to right subarticular disc herniation, with flattening of the dural sac asymmetric to the right, with encroachment on the S1 nerve roots, right more than left. There is posterior displacement of the right S1 nerve root. There is xtip-wr-[id number] facet arthropathy, left more than right, with severe left-sided and moderate right-sided neural foraminal stenosis, with left L5 nerve root impingement. There is mild central canal narrowing at this level, and there is moderate right-sided and mild left-sided subarticular recess narrowing. L4-L5: Unroofing of the posterior disc margin is noted, with superimposed diffuse disc bulging, with luwd-xs-wejwvzia flattening of the ventral dural sac. 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 There is moderate central spinal canal stenosis, and there is moderate left-sided and spql-vd-qcqegfvp right-sided lateral recess stenosis, with moderate right-sided and cvmp-vq-mdwyzduq left-sided neural foraminal stenosis. Disc bulging abuts the exiting L4 nerve roots bilaterally. L3-L4: There is minor annular bulging with a small central transverse annular fissure with minimal flattening of the ventral dural sac. There is moderate bilateral facet hypertrophic degenerative change without significant canal stenosis. There is mild bilateral foraminal narrowing without neural impingement. L2-L3: Mild disc bulging is noted with a superimposed small left subarticular disc protrusion with encroachment on the inferior left neural foramen. Slight narrowing of the left subarticular zone is noted without significant central spinal canal narrowing. There is moderate bilateral facet hypertrophic degenerative change with ligamentum flavum thickening and mild left-sided foraminal narrowing without neural impingement. L1-L2: Mild shallow broad-based left central to left lateral disc protrusion, with slight flattening of the left side of the dural sac noted with mild bilateral facet arthropathy without significant canal or neural foraminal stenosis. Paraspinal/Retroperitoneal: The paravertebral soft tissues appear unremarkable. There is atrophy of the right kidney, and there are multiple cystic structures in the left kidney, one of which may be hemorrhagic. Recommend correlation with renal ultrasound. MR/MR lumbar spine wo con IMPRESSION: 1. Grade 1 degenerative spondylolisthesis at L4-L5 noted with slight lower lumbar levocurvature. 2. 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 3. Multilevel disc bulging and disc herniations, as detailed above, with central to right paramedian disc herniation at L5-S1 encroaching on the S1 nerve roots, right more than left. Moderate canal stenosis at L4-L5 with bilateral neural foraminal stenosis, right more than left, as detailed above, and severe left-sided neural foraminal stenosis at L5-S1 with left L5 nerve root impingement. Disc bulging abuts the exiting L4 nerve roots bilaterally.
--- NOTE | ~2021-08-27 | XR_ITS ---
EXAMINATION: PRE-MRI SCREENING ORBITS CLINICAL INFORMATION: History of surgery to right eye. Rule out foreign body COMPARISON: None TECHNIQUE: 3 views. FINDINGS: There is no radiopaque metallic foreign body seen in the orbits. The paranasal sinuses are well-aerated. The mastoid air cells are well aerated as well. No scalp soft tissue abnormality seen. XR/XR pre mri screening IMPRESSION: No radiopaque foreign body seen in the orbits.
== END 2021-08-27 08:44 | disposition home or self-care (01) ==
LOC: HO.MRI 08:43
PROVIDERS: PCP Family Medicine; Visit Provider Family Medicine
DX: G89.29 Other chronic pain (principal); M54.50 Low back pain, unspecified; R26.9 Unspecified abnormalities of gait and mobility
CPT/HCPCS: 72148

== ENCOUNTER 2021-10-18 15:22 | Emergency (ER) | payer MEDICARE, SELFPAY ==
--- NOTE | ~2021-10-18 | XR_ITS ---
EXAMINATION: XR CHEST CLINICAL INFORMATION: Chest pain COMPARISON: Chest 04/21/2021 TECHNIQUE: 2 views of the chest were obtained. FINDINGS: The lungs are well-expanded and clear of acute pneumonic process. The heart size and pulmonary vascularity is normal. No gross bony abnormality seen. XR/XR chest 2V IMPRESSION: Unremarkable chest exam.
--- NOTE | ~2021-10-18 | CT_ITS ---
EXAMINATION: CT HEAD WITHOUT CONTRAST CLINICAL INFORMATION: Headache, EtOH use on Coumadin. COMPARISON: CT brain 04/24/2016. TECHNIQUE: Contiguous axial imaging was performed from the skull base to vertex without intravenous administration of contrast. This CT examination was performed using dose optimization techniques as appropriate, variously including the following: *Automated exposure control *Adjustment of mA and/or kV according to patient size (this includes techniques or standardized protocols for targeted exams where dose is matched to indication/reason for exam; i.e. extremities or head) *Use of iterative reconstruction technique DLP: 729 mGy-cm FINDINGS: There is no evidence of acute intracranial hemorrhage or territorial infarction. No abnormal mass effect or midline shift is seen. [place] to white matter differentiation is well preserved. No extra-axial fluid collections are identified. The ventricles are normal in size. There is no abnormal attenuation within the brain parenchyma. The osseous structures and soft tissues are normal. The mastoid air cells and visualized portions of the paranasal sinuses are well aerated. CT/CT head/brain wo con IMPRESSION: No acute intracranial process seen.
--- NOTE | 2021-10-18 15:38 | ECG_ITS ---
Test Reason : chest pain Blood Pressure : / mmHG Vent. Rate : 074 BPM Atrial Rate : 074 BPM P-R Int : 138 ms QRS Dur : 090 ms QT Int : 394 ms P-R-T Axes : 041 026 013 degrees QTc Int : 437 ms Normal sinus rhythm Minimal voltage criteria for LVH, may be normal variant ( R in aVL ) Possible Inferior infarct , age undetermined Abnormal ECG When compared with ECG of 21-APR-2021 14:02, Borderline criteria for Inferior infarct are now Present Referred By: Gaby Thornton Electronically Signed By:LESA BURGER
--- NOTE | 2021-10-18 15:39 | ED_ITS ---
HPI - Chest Pain General Chief Complaint: Chest Pain Stated Complaint: cp Time Seen by Provider: 10/18/21 15:31 Source: EMS and special education assistant Mode of arrival: EMS Limitations: language barrier History of Present Illness HPI narrative: 66-year-old male with a medical history of DVT on Coumadin, alcohol abuse, chronic kidney disease, GERD, mood disorder, seizure disorder, peripheral vascular disease here with reports of central chest burning for 1 hour after eating toast, eggs and hot dog. Patient describes the pain as burning and hot feeling with associated nausea. No associated shortness of breath, vomiting or dizziness. Patient had 324 mg of aspirin and 1 sublingual nitro prior to arrival. He tells me his pain continues but is feeling improved. Also complaining of mild headache. No recent falls or injuries. Headache began to be for the patient received nitroglycerin. Patient denies any vision neri ges, neck pain, dizziness, vomiting. The patient tells me that he has been on a binge of drinking alcohol for the last 6 days. He tells me the history of alcohol abuse but can go several days without drinking and then may start to binge again. His last drink was early this morning. He denies any falls or injuries or head strikes. He denies any black or bloody stools or vomiting blood. Related Data Home Medications Medication Instructions Recorded Confirmed acetaminophen 500 mg tablet 500 mg PO Q12H PRN 08/06/20 06/11/21 atorvastatin 10 mg tablet 10 mg PO BEDTIME 08/06/20 06/11/21 buspirone 30 mg tablet 30 mg PO BID 08/06/20 06/11/21 cholecalciferol (vitamin D3) 25 25 mcg PO QAM 08/06/20 06/11/21 mcg (1,000 unit) tablet fluticasone propionate 50 1 spray INTRANASAL DAILY 08/06/20 06/11/21 mcg/actuation nasal spray,suspension folic acid 1 mg tablet 1 mg PO QAM 08/06/20 06/11/21 lidocaine 5 % topical cream 1 applic TOPICAL DAILY 08/06/20 06/11/21 lisinopril 2.5 mg tablet 2.5 mg PO QAM 08/06/20 06/11/21 loratadine 10 mg tablet 10 mg PO DAILY 08/06/20 06/11/21 mirtazapine 45 mg tablet 45 mg PO BEDTIME 08/06/20 06/11/21 phenytoin sodium extended 100 mg 300 mg PO QAM 08/06/20 06/11/21 capsule thiamine HCl (vitamin B1) 100 mg 100 mg PO QAM 08/06/20 06/11/21 tablet warfarin 4 mg tablet 4 mg PO 5XW tab 10/31/20 07/02/21 docusate sodium 100 mg capsule 100 mg PO BID 11/13/20 06/11/21 ergocalciferol (vitamin D2) 1,250 0 mcg PO 11/13/20 06/11/21 mcg (50,000 unit) capsule ketoconazole 2 % topical cream appl TOPICAL Q OTHER DAY PRN 11/13/20 06/11/21 naltrexone 50 mg tablet 0 mg PO 11/13/20 06/11/21 Previous Rx's Medication Instructions Recorded omeprazole 20 mg capsule,delayed 20 mg PO DAILY 42 Days #42 cap 08/06/20 release sucralfate 1 gram tablet (Carafate) 1 g PO BID #60 tab 08/06/20 omeprazole 20 mg capsule,delayed 20 mg PO DAILY #30 cap 08/08/20 release sucralfate 1 gram tablet (Carafate) 1 g PO BID #60 tab 08/08/20 warfarin 3 mg tablet 3 mg PO DAILY #90 tab 10/31/20 acetaminophen 325 mg capsule 650 mg PO Q4H PRN #20 cap 10/18/21 (Tylenol) Allergies Allergy/AdvReac Type Severity Reaction Status Date / Time ibuprofen [From Motrin] Allergy Intermediate UNKNOWN Verified 07/02/21 09:56 acetaminophen [From Percocet] Allergy Unknown Verified 07/02/21 09:56 oxycodone Allergy Unknown Verified 07/02/21 09:56 Review of Systems Review of Systems: Yes all other systems are reviewed and are negative Constitutional: Constitutional: Reports no additional constitutional complaints, Denies body ache(s), Denies chills, Denies fever(s), Reports headache(s) and Denies weakness Eyes: Eyes: Reports no additional eye complaints and Denies change in vision ENT: Reports system reviewed and no additional complaints, except as documented, Denies dizziness, Reports headache(s), Denies nasal congestion, Denies nasal discharge and Denies neck pain Cardiovascular: Cardiovascular: Reports no additional cardiovascular complaints, Reports chest pain, Denies leg edema and Denies dyspnea Respiratory: Respiratory: Reports no additional respiratory complaints, Denies cough and Denies dyspnea Gastrointestinal: Gastrointestinal: Reports no additional gastrointestinal complaints, Denies abdominal pain, Denies diarrhea, Reports nausea and Denies vomiting Genitourinary: Genitourinary: Denies urinary incontinence Musculoskeletal: Musculoskeletal: Reports no additional musculoskeletal c omplaints, Denies back pain, Denies arthralgias, Denies joint swelling, Denies neck pain, Denies numbness and Denies tingling Integumentary/Breasts: Skin/Breast: Reports system reviewed and no additional complaints, except as docu and Denies rash Neurologic: Reports system reviewed and no additional complaints, except as documented, Denies Abnormal speech present, Denies dizziness, Reports headache(s), Denies numbness, Denies tingling and Denies weakness PMFSH Past Medical History Attestation statement: The following information was validated with the patient. Source: old records reviewed Medical History Alcohol abuse Aortic aneurysm Chronic anticoagulation CKD (chronic kidney disease) Depression DVT (deep venous thrombosis) GERD (gastroesophageal reflux disease) Hemorrhoid Hyperhomocysteinemia Mood disorder Mood disorder due to a general medical condition Peripheral vascular disease Seizure Social History Social History Alcohol intake: current Alcohol intake frequency: a few times a month Alcohol type: beer Patient Tobacco Use Status: Never used Tobacco Use of substances other than those prescribed or required for medical reasons: No Advance Directives: No Advance Directives Information Provided: Yes Physical Exam Vital Signs: Vital Signs: Last Vital Signs Pulse 92 10/18/21 15:47 Resp 16 10/18/21 15:47 BP 155/83 H 10/18/21 15:47 Pulse Ox 98 10/18/21 15:47 BMI result Body Mass Index 29.0 Const: General: cooperative, healthy appearing, comfortable and no acute distress Orientation/consciousness: patient oriented x3 Limitations: no limitations HENMT: Head: Yes normal to inspection Ears: hearing grossly normal bilaterally and TM's normal bilaterally General nose exam: Normal external nose present Face and sinus: Yes normal facial exam Mouth: Normal oral and palatal mucosa present Throat: Yes posterior oropharynx normal, Yes tonsils normal and Yes uvula midline Eyes: General: appearance normal, both eyes and all related structures Pupils: Equal, round and reactive pupils present Neck: Neck: Yes normal visual inspection, Yes full ROM, Yes no lymphadenopathy and Yes no meningeal signs Chest: Other: Central chest tender to palpate Chest palpation & inspection: normal inspection of the chest Resp: Effort & Inspection: normal respiratory effort Auscultation: clear to auscultation bilaterally Cardio: Rate: regular rate Rhythm: regular rhythm Peripheral pulses: Peripheral pulses 2+ throughout GI: Inspection: Yes normal to inspection Palpation (GI): Soft to palpation and nontender Auscultation: normal bowel sounds Back/Spine/Pelvis: Thoracic/Lumbar Spine: thoracic and lumbar spine normal to inspection Skin: General skin exam: no rashes or lesions noted Neuro: General: patient oriented x3, no meningeal signs, no focal motor deficits and normal sensation to monofilament Cranial nerves: Yes CN's II-XII intact bilaterally, Yes Equal, round and reactive pupils present, Yes Bilaterally intact EOM present, Yes Nystagmus not present, Yes Normal facial strength present and Yes Midline tongue present Cognition (Neuro): normal cognition Speech: No Abnormal speech present Gait exam (Neuro): Normal gait present Motor exam (neuro): 5/5 motor strength present throughout Sensory Exam: Normal double simultaneous stimulation for sensation Extrem: General: Yes normal to inspection Course Course Course Narrative: 66 yo male here with complaints of chest burning and nausea x 1 hr after eating a hot dog and eggs and toast. Received aspirin and nitro prior to arrival. Seems atypical for ACS but due to patient's age will check chest x-ray, EKG and troponin. Patient does have history of known aortic aneurysm and is on Coumadin. His pain is very mild on exam. There is no radiation to the back. There is no hypertension. Less likely dissection. Will monitor closely. ?gastritis vs GERD with longstanding alcohol use. Additionally patient complaining of headache within normal neurological exam. However due to patient's history of alcohol abuse, being on Coumadin will check CT 1700-initial troponin is 16. EKG shows no ischemic changes. Plan for repeat 3 hour troponin. Pain is now resolved after receiving Maalox and lidocaine. Less likely ACS. CT head is negative for ICH. COVID screen is positive. There is no hypoxia or tachycardia or tachypnea. Chest x-ray is pending. 1944-chest x-ray shows no acute finding. Troponin x2 unchanged Less likely ACS as all symptoms have resolved. Patient informed of positive COVID result. Informed he will need to quarantine for a total of 10 days. Reviewed worrisome signs and symptoms of when to return to the emergency department. Comfortable discharge home. MDM - Chest Pain MDM Narrative Medical decision making narrative: Less likely PE with therapeutic INR, no hypoxia or tachypnea or tachycardia, no clinical findings concerning for DVT Less likely aortic dissection with improving exam, no severe pain or reports of back pain Less likely ACS with troponin x2 which is negative with normal EKG Medical Records Data Attestation: I reviewed the patient's medical records. Lab Data Attestation: I reviewed the patient's lab results. Result diagrams: 10/18/21 16:34 10/18/21 16:34 Labs: Lab Results 10/18/21 10/18/21 10/18/21 Range/Units 16:34 16:34 16:34 WBC 5.0 (4.8-10.8) X10*3/uL RBC 4.94 (4.60-5.80) X10*6/uL Hgb 16.9 (14.0-18.0) g/dl Hct 49.5 (42.0-52.0) % MCV 100.2 H (80.0-98.0) fL MCH 34.2 H (27.0-33.0) pg MCHC 34.1 (31.0-36.0) g/dl RDW 12.2 (11.0-16.0) % Plt Count 116 L (160-400) X10*3/uL MPV 9.7 (9.4-12.4) fL Immature Gran % (Auto) 0.6 H (0.0-0.4) % Neut % (Auto) 78.2 H (45-73) % Lymph % (Auto) 7.8 L (20-40) % [place] % (Auto) 11.0 (2-11) % Eos % (Auto) 1.8 (0-4) % Baso % (Auto) 0.6 (0-2) % Lymph # (Auto) 0.4 L (1.2-4.9) X10*3/uL [place] # (Auto) 0.6 (0.1-1.2) X10*3/uL Eos # (Auto) 0.1 (0.0-0.4) X10*3/uL Baso # (Auto) 0.0 (0.0-0.2) X10*3/uL Abs Immat Gran (auto) 0.03 (0.00-0.03) X10*3/uL Absolute Neuts (auto) 3.9 (2.0-8.3) x10*3/uL Absolute Nucleated RBC 0.000 (0.0-0.012) X10*3/uL Nucleated RBC % (auto) 0.0 (0.0-0.2) /100WBC PT 25.2 H (9.9-13.0) SEC INR 2.2 H (0.9-1.1) Sodium 139 (135-145) mmol/L Potassium 4.3 (3.3-5.1) mmol/L Chloride 105 (96-108) mmol/L Carbon Dioxide 28 (22-29) mmol/L Anion Gap 10 L (12-20) BUN 23 H (9-16) mg/dL Creatinine 1.28 (0.5-1.4) mg/dL Estim Creat Clear Calc 48.0 Estimated GFR 56 Random Glucose 106 (60-115) mg/dL Calcium 9.4 (8.4-10.2) mg/dL Magnesium 1.9 (1.6-2.6) mg/dL Total Bilirubin 0.3 (0.0-1.0) mg/dL Direct Bilirubin 0.2 (0.0-0.5) mg/dL AST 17 (5-37) U/L ALT 23 (0-40) U/L Alkaline Phosphatase 62 (39-117) U/L Troponin I High Sens (<3.5-35.0) ng/L Total Protein 6.6 (6.5-8.0) g/dL Albumin 3.6 (3.5-5.0) g/dL COVID-19 (DALI) (Negative) COVID-19 Clin Com 10/18/21 10/18/21 10/18/21 Range/Units 16:34 16:34 19:20 WBC (4.8-10.8) X10*3/uL RBC (4.60-5.80) X10*6/uL Hgb (14.0-18.0) g/dl Hct (42.0-52.0) % MCV (80.0-98.0) fL MCH (27.0-33.0) pg MCHC (31.0-36.0) g/dl RDW (11.0-16.0) % Plt Count (160-400) X10*3/uL MPV (9.4-12.4) fL Immature Gran % (Auto) (0.0-0.4) % Neut % (Auto) (45-73) % Lymph % (Auto) (20-40) % [place] % (Auto) (2-11) % Eos % (Auto) (0-4) % Baso % (Auto) (0-2) % Lymph # (Auto) (1.2-4.9) X10*3/uL [place] # (Auto) (0.1-1.2) X10*3/uL Eos # (Auto) (0.0-0.4) X10*3/uL Baso # (Auto) (0.0-0.2) X10*3/uL Abs Immat Gran (auto) (0.00-0.03) X10*3/uL Absolute Neuts (auto) (2.0-8.3) x10*3/uL Absolute Nucleated RBC (0.0-0.012) X10*3/uL Nucleated RBC % (auto) (0.0-0.2) /100WBC PT (9.9-13.0) SEC INR (0.9-1.1) Sodium (135-145) mmol/L Potassium (3.3-5.1) mmol/L Chloride (96-108) mmol/L Carbon Dioxide (22-29) mmol/L Anion Gap (12-20) BUN (9-16) mg/dL Creatinine (0.5-1.4) mg/dL Estim Creat Clear Calc Estimated GFR Random Glucose (60-115) mg/dL Calcium (8.4-10.2) mg/dL Magnesium (1.6-2.6) mg/dL Total Bilirubin (0.0-1.0) mg/dL Direct Bilirubin (0.0-0.5) mg/dL AST (5-37) U/L ALT (0-40) U/L Alkaline Phosphatase (39-117) U/L Troponin I High Sens 16.0 17.3 (<3.5-35.0) ng/L Total Protein (6.5-8.0) g/dL Albumin (3.5-5.0) g/dL COVID-19 (DALI) Positive A (Negative) COVID-19 Clin Com See Note Imaging Data CT scan - head: Attestation: I personally reviewed and interpreted this imaging study as follows: Radiologist's impression: [address] [address] [address] Scan Report Signed Patient: Chriss Munoz MR#: [id number] : 1955 Acct:[id number] Age/Sex: 66 / M ADM Date: 10/18/21 Loc: .ED Attending Dr: Ordering Physician: Gaby Thornton NP Date of Service: 10/18/21 Procedure(s): CT head/brain wo con Accession Number(s): [id number] cc: Gaby Thornton NP~ EXAMINATION: CT HEAD WITHOUT CONTRAST CLINICAL INFORMATION: Headache, EtOH use on Coumadin.? COMPARISON: CT brain 04/24/2016. TECHNIQUE: Contiguous axial imaging was performed from the skull base to vertex without intravenous administration of contrast. This CT examination was performed using dose optimization techniques as appropriate, variously including the following: *Automated exposure control *Adjustment of mA and/or kV according to patient size (this includes techniques or standardized protocols for targeted exams where dose is matched to indication/reason for exam; i.e. extremities or head) *Use of iterative reconstruction technique DLP: 729 mGy-cm FINDINGS: There is no evidence of acute intracranial hemorrhage or territorial infarction. No abnormal mass effect or midline shift is seen. [place] to white matter differentiation is well preserved. No extra-axial fluid collections are identified. The ventricles are normal in size. There is no abnormal attenuation within the brain parenchyma. The osseous structures and soft tissues are normal. The mastoid air cells and visualized portions of the paranasal sinuses are well aerated. ? CT/CT head/brain wo con IMPRESSION: No acute intracranial process seen. Chest x-ray: Attestation: I personally reviewed and interpreted this imaging study as follows: Radiologist's impression: [id number] [place] [address] XRay Report Signed Patient: Chriss Munoz MR#: [id number] : 1955 Acct:[id number] Age/Sex: 66 / M ADM Date: 10/18/21 Loc: .ED Attending Dr: Ordering Physician: Gaby Thornton NP Date of Service: 10/18/21 Procedure(s): XR chest 2V Accession Number(s): [id number] cc: Gaby Thornton NP~ EXAMINATION: XR CHEST CLINICAL INFORMATION: Chest pain COMPARISON: Chest 04/21/2021 TECHNIQUE: 2 views of the chest were obtained. FINDINGS: The lungs are well-expanded and clear of acute pneumonic process. The heart size and pulmonary vascularity is normal. No gross bony abnormality seen. XR/XR chest 2V IMPRESSION: Unremarkable chest exam. ECG Data ECG #1: Attestation: I personally reviewed and interpreted this ECG as follows: ECG interpretation date: 10/18/21 ECG interpretation time: 16:23 Interpretation: Normal sinus rhythm with a rate of 74, normal ID, normal QRS, normal QT Discharge Plan Discharge Clinical Impression: Atypical chest pain, COVID-19 Patient Disposition: Home, Self-Care Instructions: Chest Pain (ED), COVID-19 (Coronavirus Disease 2019) (ED) Additional Instructions: Your COVID test is positive You need to quarantine for a total of 10 days Your checks x-ray, EKG and labs are all normal Increase fluids, rest Follow-up with your outpatient providers once you have recovered from COVID. Prescriptions: New acetaminophen [Tylenol] 325 mg capsule 650 mg PO Q4H PRN (Reason: fever or pain) Qty: 20 RF: 0 No Action atorvastatin 10 mg tablet 10 mg PO BEDTIME RF: 0 lidocaine 5 % cream 1 applic topical DAILY RF: 0 thiamine HCl (vitamin B1) 100 mg tablet 100 mg PO QAM RF: 0 phenytoin sodium extended 100 mg capsule 300 mg PO QAM RF: 0 acetaminophen 500 mg tablet 500 mg PO Q12H PRN (Reason: Pain (Scale Score 1-3)) RF: 0 buspirone 30 mg tablet 30 mg PO BID RF: 0 mirtazapine 45 mg tablet 45 mg PO BEDTIME RF: 0 folic acid 1 mg tablet 1 mg PO QAM RF: 0 fluticasone propionate 50 mcg/actuation spray,suspension 1 spray intranasal DAILY RF: 0 lisinopril 2.5 mg tablet 2.5 mg PO QAM RF: 0 loratadine 10 mg tablet 10 mg PO DAILY RF: 0 cholecalciferol (vitamin D3) 25 mcg (1,000 unit) tablet 25 mcg PO QAM RF: 0 omeprazole 20 mg capsule,delayed release(DR/EC) 20 mg PO DAILY 42 Days Qty: 42 RF: 0 sucralfate [Carafate] 1 gram tablet 1 g PO BID Qty: 60 RF: 0 omeprazole 20 mg capsule,delayed release(DR/EC) 20 mg PO DAILY Qty: 30 RF: 0 sucralfate [Carafate] 1 gram tablet 1 g PO BID Qty: 60 RF: 0 warfarin 3 mg tablet 3 mg PO DAILY Qty: 90 RF: 0 warfarin 4 mg tablet 4 mg PO 5XW RF: 0 ketoconazole 2 % cream topical Q OTHER DAY PRNRF: 0 docusate sodium 100 mg capsule 100 mg PO BID RF: 0 naltrexone 50 mg tablet 0 mg PO RF: 0 ergocalciferol (vitamin D2) 1,250 mcg (50,000 unit) capsule 0 mcg PO RF: 0 Referrals: Physician,Unknown J [Primary Care Provider] - 2 days Interventions: ED Discharge Assessment Last Done: 10/18/21 19:58 Discharge Date/Time: 10/18/21 20:23 Print Language: Uzbek
[2021-10-18 15:47] VITALS: BP 155/83; PULSE 92; RESP 16; O2SAT 98; BMI 29.0
[2021-10-18] MEDS: Magnesium Hydrox/Alum Hydrox 30 ML ORAL.SUSP PO (16:12)
[2021-10-18] MEDS: Lidocaine HCl Viscous 2 % 15 ML SOLUTION MUCOUS MEM (16:12)
[2021-10-18 16:38] LABS: MANUAL DIFF FLAG NO
[2021-10-18 16:41] LABS: Basophils Percent Auto 0.6 % (0-2); Eosinophils Absolute Auto 0.1 X10*3/uL (0.0-0.4); Eosinophils Percent Auto 1.8 % (0-4); Hematocrit 49.5 % (42.0-52.0); Hemoglobin 16.9 g/dl (14.0-18.0); Imm Gran Abs Auto 0.03 X10*3/uL (0.00-0.03); Imm Gran Pct Auto 0.6 % (0.0-0.4); Lymphocytes Absolute Auto 0.4 X10*3/uL (1.2-4.9); Lymphocytes Percent Auto 7.8 % (20-40); Mean Corpuscular HGB Conc 34.1 g/dl (31.0-36.0); Mean Corpuscular Hemoglobin 34.2 pg (27.0-33.0); Mean Corpuscular Volume 100.2 fL (80.0-98.0); Mean Platelet Volume 9.7 fL (9.4-12.4); Monocytes Absolute Auto 0.6 X10*3/uL (0.1-1.2); Neutrophils Absolute Auto 3.9 x10*3/uL (2.0-8.3); Neutrophils Percent Auto 78.2 % (45-73); Platelet Count 116 X10*3/uL (160-400); Red Blood Count 4.94 X10*6/uL (4.60-5.80); Red Cell Distribution Width 12.2 % (11.0-16.0)
[2021-10-18 16:46] LABS: INTERNATIONAL NORM RATIO 2.2 (0.9-1.1); Prothrombin Time 25.2 SEC (9.9-13.0)
[2021-10-18 16:47] LABS: COVID-19 Test Positive (Negative)
[2021-10-18 17:01] LABS: Alanine Aminotransferase 23 U/L (0-40); Albumin Level 3.6 g/dL (3.5-5.0); Alkaline Phosphatase 62 U/L (39-117); Anion Gap 10 (12-20); Aspartate Amino Transferase 17 U/L (5-37); Bilirubin Direct 0.2 mg/dL (0.0-0.5); Bilirubin Total 0.3 mg/dL (0.0-1.0); Blood Urea Nitrogen 23 mg/dL (9-16); Calcium 9.4 mg/dL (8.4-10.2); Carbon Dioxide 28 mmol/L (22-29); Chloride 105 mmol/L (96-108); Estimated Glomerular Filt Rate 56; Glucose Random 106 mg/dL (60-115); Magnesium 1.9 mg/dL (1.6-2.6); Potassium 4.3 mmol/L (3.3-5.1); Sodium 139 mmol/L (135-145); Total Protein 6.6 g/dL (6.5-8.0)
[2021-10-18 19:45] LABS: Troponin-I High Sensitivity 17.3 ng/L (<3.5-35.0)
== END 2021-10-18 20:23 | disposition home or self-care (01) ==
PROVIDERS: Nurse Practitioner Family; Emergency Provider Internal Medicine
DX: U07.1 COVID-19 (principal); R07.89 Other chest pain; N18.9 Chronic kidney disease, unspecified; Z20.822 Contact with and (suspected) exposure to COVID-19; Z79.01 Long term (current) use of anticoagulants
CPT/HCPCS: 36415; 70450; 71046; 80048; 80076; 83735; 84484; 85025; 85610; 87635; 93005; 99284; 99285

== ENCOUNTER 2021-11-09 10:27 | Emergency (ER) | payer MEDICARE, SELFPAY ==
--- NOTE | ~2021-11-09 | XR_ITS ---
EXAMINATION: XR CHEST CLINICAL INFORMATION: Chest pain. COMPARISON: Chest 10/18/2021 TECHNIQUE: Frontal view of the chest was obtained. FINDINGS: The lungs are expanded with increased bilateral parahilar markings. No consolidation pleural effusion. The heart size is normal. XR/XR chest 1V IMPRESSION: Expanded lungs with no acute pneumonic process. Mild prominence of vascularity without congestion.
--- NOTE | 2021-11-09 10:33 | ECG_ITS ---
Test Reason : CHEST PAIN Blood Pressure : / mmHG Vent. Rate : 064 BPM Atrial Rate : 064 BPM P-R Int : 138 ms QRS Dur : 074 ms QT Int : 408 ms P-R-T Axes : 054 029 061 degrees QTc Int : 420 ms Normal sinus rhythm Normal ECG When compared with ECG of 18-OCT-2021 16:23, Borderline criteria for Inferior infarct are no longer Present Referred By: Generic ED Physician Electronically Signed By:LESA BURGER
[2021-11-09 10:46] VITALS: BP 159/87; BP 177/109; PULSE 67; PULSE 74; RESP 16; TEMP 36.6; O2SAT 97; O2SAT 98; BMI 24.8
--- NOTE | 2021-11-09 11:03 | ED_ITS ---
HPI - Chest Pain General Chief Complaint: Chest Pain Stated Complaint: CHEST PAIN FROM ADULT DAY CARE PER EMS Time Seen by Provider: 11/09/21 10:38 Source: patient and phys therapist Mode of arrival: ambulatory Limitations: no limitations History of Present Illness HPI narrative: 66 yo male with hx of CKD, DVT / PE on coumadin states he is compliant, slightly dilated ascending aortic aneurysm 09/2020 4.2 x 4.3 cm, mood disorder, sz disorder here with c/o improving palpitations and chest pain after masturbating last night at 7pm. Cannot describe pain. Only took ASA with EMS prior to arrival. States it is improving. [place] short of breath after the event last night. MD complaint: chest pain Onset (ago): hour(s) (7pm last night) Timing of current episode: other (improving almost resolved) Prior episodes: Yes Onset: during exertion (after masturbating) Pain location: substernal Pain radiation: none Severity: moderate Quality: other ( pain ) Relieving factors: rest Exacerbating factors: nothing Associated symptoms: dyspnea Treatment prior to arrival: aspirin (324mg ASA) Related Data Home Medications Medication Instructions Recorded Confirmed acetaminophen 500 mg tablet 500 mg PO Q12H PRN 08/06/20 06/11/21 atorvastatin 10 mg tablet 10 mg PO BEDTIME 08/06/20 06/11/21 buspirone 30 mg tablet 30 mg PO BID 08/06/20 06/11/21 cholecalciferol (vitamin D3) 25 mcg PO QAM 08/06/20 06/11/21 25 mcg (1,000 unit) tablet fluticasone propionate 50 1 spray INTRANASAL DAILY 08/06/20 06/11/21 mcg/actuation nasal spray,suspension folic acid 1 mg tablet 1 mg PO QAM 08/06/20 06/11/21 lidocaine 5 % topical cream 1 applic TOPICAL DAILY 08/06/20 06/11/21 lisinopril 2.5 mg tablet 2.5 mg PO QAM 08/06/20 06/11/21 loratadine 10 mg tablet 10 mg PO DAILY 08/06/20 06/11/21 mirtazapine 45 mg tablet 45 mg PO BEDTIME 08/06/20 06/11/21 phenytoin sodium extended 300 mg PO QAM 08/06/20 06/11/21 100 mg capsule thiamine HCl (vitamin B1) 100 mg PO QAM 08/06/20 06/11/21 100 mg tablet warfarin 4 mg tablet 4 mg PO 5XW tab 10/31/20 07/02/21 docusate sodium 100 mg 100 mg PO BID 11/13/20 06/11/21 capsule ergocalciferol (vitamin D2) 0 mcg PO 11/13/20 06/11/21 1,250 mcg (50,000 unit) capsule ketoconazole 2 % topical appl TOPICAL Q OTHER DAY 11/13/20 06/11/21 cream PRN naltrexone 50 mg tablet 0 mg PO 11/13/20 06/11/21 Previous Rx's Medication Instructions Recorded omeprazole 20 mg capsule,delayed 20 mg PO DAILY 42 Days #42 cap 08/06/20 release sucralfate 1 gram tablet (Carafate) 1 g PO BID #60 tab 08/06/20 omeprazole 20 mg capsule,delayed 20 mg PO DAILY #30 cap 08/08/20 release sucralfate 1 gram tablet (Carafate) 1 g PO BID #60 tab 08/08/20 warfarin 3 mg tablet 3 mg PO DAILY #90 tab 10/31/20 acetaminophen 325 mg capsule 650 mg PO Q4H PRN #20 cap 10/18/21 (Tylenol) Allergies Allergy/AdvReac Type Severity Reaction Status Date / Time ibuprofen [From Allergy Intermediate UNKNOWN Verified 07/02/21 09:56 Motrin] acetaminophen [From Allergy Unknown Verified 07/02/21 09:56 Percocet] oxycodone Allergy Unknown Verified 07/02/21 09:56 Review of Systems Verdana 4l Review of Systems: Verdana 4d Verdana 4d Constitutional : No Weight loss, No Fever, No Chills ENT/Mouth : No sore throat, No Rhinorrhea Eyes: No Eye Pain, No Swelling Cardiovascular : pos Chest Pain, pos SOB, no Dyspnea on Exertion, No Orthopnea, No Edema, No Palpitations RespiratoryRespiratory : No Cough, No Sputum Gastrointestinal : no Nausea, No Vomiting, No Diarrhea, No abdominal Pain, No Hematochezia, No Melena Genitourinary : No Dysuria, No Urinary Frequency Musculoskeletal : No joint pain, No Myalgias, No Joint Swelling Skin : No Skin Lesions, No rash Neuro : No Weakness, No Numbness, No Dizziness, No Headache Psych : No Anxiety/Panic, No Depression Heme/Lymph: No Bruising, No Lymphadenopathy Endocrine : No Polyuria, No Polydipsia All other systems reviewed and are negative [facility] Past Medical History Attestation statement: The following information was validated with the patient. Medical History (Updated 11/09/21 @ 15:12 by Jennifer Ford DO) Alcohol abuse Aortic aneurysm Chronic anticoagulation CKD (chronic kidney disease) Depression DVT (deep venous thrombosis) GERD (gastroesophageal reflux disease) Hemorrhoid Hyperhomocysteinemia Mood disorder Mood disorder due to a general medical condition Peripheral vascular disease Seizure Social History Social History Alcohol intake: current Alcohol intake frequency: a few times a month Alcohol type: beer Patient Tobacco Use Status: Never used Tobacco Advance Directives: Yes Advance Directives on File: Yes Advance Directives Date on File: 10/01/20 Physical Exam Verdana 4l Vital Signs: Verdana 4d Verdana 4d Vital Signs: Verdana 4d Verdana 4Bd Last Vital Signs Verdana 4d Hotel Controller New 4d Hotel Controller New 4d Temp 97.9 F 11/09/21 10:46 Hotel Controller New 4d Pulse 61 11/09/21 14:47 Hotel Controller New 4d Resp 12 11/09/21 14:47 BP 144/84 H 11/09/21 14:47 Pulse Ox 97 11/09/21 14:47 BMI result Body Mass Index 24.8 Appearance: Alert. Oriented X3. No acute distress. Smiling and laughing with phys therapist Eyes: Pupils equal, round and reactive to light. ENT: Pharynx normal. Neck: Normal inspection. Neck supple. CVS: Normal heart rate and rhythm. Pulses normal. Respiratory: No respiratory distress. Breath sounds normal. Abdomen: Soft and nontender. Skin: Skin warm and dry. Normal skin color. Normal skin turgor. Extremities: No lower extremity edema. No calf ttp Neuro: Oriented X 3. No motor deficit. No sensory deficit. Course Course Course Narrative: two troponins negative since 7pm last night, negative EKG x 2 - at this time no acute findings on workup, INR 3.1 anticipate he will go home with Cardiology follow up cardiology also reviewed EKG - no acute findings. MDM - Chest Pain MDM Narrative Medical decision making narrative: 66 yo male with hx of CKD, DVT / PE on coumadin states he is compliant, slightly dilated ascending aortic aneurysm 09/2020 4.2 x 4.3 cm, mood disorder, sz disorder here with c/o improving palpitations and chest pain after masturbating at this time he reports the pain is improved. Has had multiple visits in the past for chest pain. He is on coumadin for PE. Symptoms did start with exertional event. At this time will obtain repeat EKGs, treat pain with low dose IV morphine, troponin x 2. Dispo per results and findings. Doubt dissection given his distal pulses intact and he is very jovial. Also doubt PE given coumadin use. Lab Data Result diagrams: 11/09/21 11:15 11/09/21 11:15 Labs: Lab Results 11/09/21 11/09/21 11/09/21 Range/Units 11:15 11:15 11:15 WBC 4.4 L (4.8-10.8) X10*3/uL RBC 5.14 (4.60-5.80) X10*6/uL Hgb 17.4 (14.0-18.0) g/dl Hct 51.6 (42.0-52.0) % MCV 100.4 H (80.0-98.0) fL MCH 33.9 H (27.0-33.0) pg MCHC 33.7 (31.0-36.0) g/dl RDW 12.3 (11.0-16.0) % Plt Count 127 L (160-400) X10*3/uL MPV 10.3 (9.4-12.4) fL Immature Gran % 0.7 H (0.0-0.4) % (Auto) Neut % (Auto) 74.0 H (45-73) % Lymph % (Auto) 13.8 L (20-40) % Grand % (Auto) 8.5 (2-11) % Eos % (Auto) 2.5 (0-4) % Baso % (Auto) 0.5 (0-2) % Lymph # (Auto) 0.6 L (1.2-4.9) X10*3/uL Grand # (Auto) 0.4 (0.1-1.2) X10*3/uL Eos # (Auto) 0.1 (0.0-0.4) X10*3/uL Baso # (Auto) 0.0 (0.0-0.2) X10*3/uL Abs Immat Gran 0.03 (0.00-0.03) (auto) X10*3/uL Absolute Neuts 3.2 (2.0-8.3) x10*3/uL (auto) Absolute Nucleated 0.000 (0.0-0.012) RBC X10*3/uL Nucleated RBC % 0.0 (0.0-0.2) /100WBC (auto) Smear Tech's Not Reportable Comments PT (9.9-13.0) SEC INR (0.9-1.1) Sodium 141 (135-145) mmol/L Potassium 4.6 (3.3-5.1) mmol/L Chloride 106 (96-108) mmol/L Carbon Dioxide 30 H (22-29) mmol/L Anion Gap 10 L (12-20) BUN 23 H (9-16) mg/dL Creatinine 1.28 (0.5-1.4) mg/dL Estim Creat Clear 55.2 Calc Estimated GFR 56 Random Glucose 76 (60-115) mg/dL Calcium 10.0 D (8.4-10.2) mg/dL Troponin I High Sens (<3.5-35.0) ng/L Phenytoin (10.0-20.0) ug/mL COVID-19 (DALI) Negative (Negative) COVID-19 Clin Com See Note 11/09/21 11/09/21 11/09/21 Range/Units 11:15 11:15 12:36 WBC (4.8-10.8) X10*3/uL RBC (4.60-5.80) X10*6/uL Hgb (14.0-18.0) g/dl Hct (42.0-52.0) % MCV (80.0-98.0) fL MCH (27.0-33.0) pg MCHC (31.0-36.0) g/dl RDW (11.0-16.0) % Plt Count (160-400) X10*3/uL MPV (9.4-12.4) fL Immature Gran % (Auto) (0.0-0.4) % Neut % (Auto) (45-73) % Lymph % (Auto) (20-40) % Grand % (Auto) (2-11) % Eos % (Auto) (0-4) % Baso % (Auto) (0-2) % Lymph # (Auto) (1.2-4.9) X10*3/uL Grand # (Auto) (0.1-1.2) X10*3/uL Eos # (Auto) (0.0-0.4) X10*3/uL Baso # (Auto) (0.0-0.2) X10*3/uL Abs Immat Gran (auto) (0.00-0.03) X10*3/uL Absolute Neuts (auto) (2.0-8.3) x10*3/uL Absolute Nucleated RBC (0.0-0.012) X10*3/uL Nucleated RBC % (auto) (0.0-0.2) /100WBC Smear Tech's Comments PT 36.1 H (9.9-13.0) SEC INR 3.1 H (0.9-1.1) Sodium (135-145) mmol/L Potassium (3.3-5.1) mmol/L Chloride (96-108) mmol/L Carbon Dioxide (22-29) mmol/L Anion Gap (12-20) BUN (9-16) mg/dL Creatinine (0.5-1.4) mg/dL Estim Creat Clear Calc Estimated GFR Random Glucose (60-115) mg/dL Calcium (8.4-10.2) mg/dL Troponin I High Sens 21.0 (<3.5-35.0) ng/L Phenytoin 7.9 L* (10.0-20.0) ug/mL COVID-19 (DALI) (Negative) COVID-19 Clin Com 11/09/21 Range/Units 14:29 WBC (4.8-10.8) X10*3/uL RBC (4.60-5.80) X10*6/uL Hgb (14.0-18.0) g/dl Hct (42.0-52.0) % MCV (80.0-98.0) fL MCH (27.0-33.0) pg MCHC (31.0-36.0) g/dl RDW (11.0-16.0) % Plt Count (160-400) X10*3/uL MPV (9.4-12.4) fL Immature Gran % (Auto) (0.0-0.4) % Neut % (Auto) (45-73) % Lymph % (Auto) (20-40) % Grand % (Auto) (2-11) % Eos % (Auto) (0-4) % Baso % (Auto) (0-2) % Lymph # (Auto) (1.2-4.9) X10*3/uL Grand # (Auto) (0.1-1.2) X10*3/uL Eos # (Auto) (0.0-0.4) X10*3/uL Baso # (Auto) (0.0-0.2) X10*3/uL Abs Immat Gran (auto) (0.00-0.03) X10*3/uL Absolute Neuts (auto) (2.0-8.3) x10*3/uL Absolute Nucleated RBC (0.0-0.012) X10*3/uL Nucleated RBC % (auto) (0.0-0.2) /100WBC Smear Tech's Comments PT (9.9-13.0) SEC INR (0.9-1.1) Sodium (135-145) mmol/L Potassium (3.3-5.1) mmol/L Chloride (96-108) mmol/L Carbon Dioxide (22-29) mmol/L Anion Gap (12-20) BUN (9-16) mg/dL Creatinine (0.5-1.4) mg/dL Estim Creat Clear Calc Estimated GFR Random Glucose (60-115) mg/dL Calcium (8.4-10.2) mg/dL Troponin I High Sens 21.8 (<3.5-35.0) ng/L Phenytoin (10.0-20.0) ug/mL COVID-19 (DALI) (Negative) COVID-19 Clin Com ECG Data ECG #1: Attestation: I personally reviewed and interpreted this ECG as follows: ECG interpretation date: 11/09/21 ECG interpretation time: 11:04 Interpretation: Rate: 64 Rhythm: NSR Ironside: normal Normal P waves. Normal NAINA. Normal QRS complex. ST T wave : no ANTONI, inverted V1, q wave lead III qTC: normal prior studies: no sig change from prior The study has been interpreted contemporaneously by me. EKG #2 Rate: 61 Rhythm: NSR Ironside: normal Normal P waves. Normal NAINA. Normal QRS complex. ST T wave : aVF looks slightly elevated .0.5mm but nothing congruent otherwise no changes qTC: normal prior studies: no sig change from prior The study has been interpreted contemporaneously by me. . Discharge Plan Discharge Clinical Impression: Chest pain Qualifiers: Chest pain type: unspecified Qualified Code(s): R07.9 - Chest pain, unspecified Patient Disposition: Home, Self-Care Instructions: Chest Pain (ED) Additional Instructions: return to ED for any worsening symptoms or concerns INR 3.1 no strenous activity until you see your senior manager mmcoe ninguna actividad extenuante hasta que jeremias a [facility]?logo Prescriptions: No Action atorvastatin 10 mg tablet 10 mg PO BEDTIME 0RF lidocaine 5 % cream 1 applic topical DAILY 0RF thiamine HCl (vitamin B1) 100 mg tablet 100 mg PO QAM 0RF phenytoin sodium extended 100 mg capsule 300 mg PO QAM 0RF acetaminophen 500 mg tablet 500 mg PO Q12H PRN (Reason: Pain (Scale Score 1-3)) 0RF buspirone 30 mg tablet 30 mg PO BID 0RF mirtazapine 45 mg tablet 45 mg PO BEDTIME 0RF folic acid 1 mg tablet 1 mg PO QAM 0RF fluticasone propionate 50 mcg/actuation spray,suspension 1 spray intranasal DAILY 0RF lisinopril 2.5 mg tablet 2.5 mg PO QAM 0RF loratadine 10 mg tablet 10 mg PO DAILY 0RF cholecalciferol (vitamin D3) 25 mcg (1,000 unit) tablet 25 mcg PO QAM 0RF omeprazole 20 mg capsule,delayed release(DR/EC) 20 mg PO DAILY 42 Days Qty: 42 0RF sucralfate [Carafate] 1 gram tablet 1 g PO BID Qty: 60 0RF omeprazole 20 mg capsule,delayed release(DR/EC) 20 mg PO DAILY Qty: 30 0RF sucralfate [Carafate] 1 gram tablet 1 g PO BID Qty: 60 0RF acetaminophen [Tylenol] 325 mg capsule 650 mg PO Q4H PRN (Reason: fever or pain) Qty: 20 0RF warfarin 3 mg tablet 3 mg PO DAILY Qty: 90 0RF Protocol: Dose Management Condition: Tuesday () Dose/Route: 4 mg Instruction: 1 x 4 mg tablet Condition: Tuesday Dose/Route: 4 mg Instruction: 1 x 4 mg tablet Condition: Tuesday Dose/Route: 3 mg Instruction: 1 x 3 mg tablet Condition: Tuesday Dose/Route: 4 mg Instruction: 1 x 4 mg tablet Condition: Dose/Route: 4 mg Instruction: 1 x 4 mg tablet Condition: Tuesday Dose/Route: 4 mg Instruction: 1 x 4 mg tablet Condition: Tuesday Dose/Route: 4 mg Instruction: 1 x 4 mg tablet Condition: Tuesday () Dose/Route: 4 mg Instruction: 1 x 4 mg tablet Condition: Tuesday Dose/Route: 4 mg Instruction: 1 x 4 mg tablet Condition: Tuesday Dose/Route: 3 mg Instruction: 1 x 3 mg tablet Condition: Tuesday Dose/Route: 4 mg Instruction: 1 x 4 mg tablet Condition: Dose/Route: 4 mg Instruction: 1 x 4 mg tablet Condition: Tuesday Dose/Route: 4 mg Instruction: 1 x 4 mg tablet Condition: Tuesday Dose/Route: 4 mg Instruction: 1 x 4 mg tablet Protocol Text: Adjustment Start Date: 07/02/21 INR Value: 1.9 INR Date: 07/02/21 Recheck Date: 07/16/21 warfarin 4 mg tablet 4 mg PO 5XW 0RF Protocol: Dose Management Condition: Tuesday ( One) Dose/Route: 4 mg Instruction: 1 x 4 mg tablet Condition: Tuesday Dose/Route: 4 mg Instruction: 1 x 4 mg tablet Condition: Tuesday Dose/Route: 3 mg Instruction: 1 x 3 mg tablet Condition: Tuesday Dose/Route: 4 mg Instruction: 1 x 4 mg tablet Condition: Dose/Route: 4 mg Instruction: 1 x 4 mg tablet Condition: Tuesday Dose/Route: 4 mg Instruction: 1 x 4 mg tablet Condition: Tuesday Dose/Route: 4 mg Instruction: 1 x 4 mg tablet Condition: Tuesday () Dose/Route: 4 mg Instruction: 1 x 4 mg tablet Condition: Tuesday Dose/Route: 4 mg Instruction: 1 x 4 mg tablet Condition: Tuesday Dose/Route: 3 mg Instruction: 1 x 3 mg tablet Condition: Tuesday Dose/Route: 4 mg Instruction: 1 x 4 mg tablet Condition: Dose/Route: 4 mg Instruction: 1 x 4 mg tablet Condition: Tuesday Dose/Route: 4 mg Instruction: 1 x 4 mg tablet Condition: Tuesday Dose/Route: 4 mg Instruction: 1 x 4 mg tablet Protocol Text: Adjustment Start Date: 07/02/21 INR Value: 1.9 INR Date: 07/02/21 Recheck Date: 07/16/21 ketoconazole 2 % cream topical Q OTHER DAY PRN0RF docusate sodium 100 mg capsule 100 mg PO BID 0RF naltrexone 50 mg tablet 0 mg PO 0RF ergocalciferol (vitamin D2) 1,250 mcg (50,000 unit) capsule 0 mcg PO 0RF Print Language: Frisian
--- NOTE | 2021-11-09 11:18 | ECG_ITS ---
Test Reason : CHEST PAIN REPEAT Blood Pressure : / mmHG Vent. Rate : 061 BPM Atrial Rate : 061 BPM P-R Int : 136 ms QRS Dur : 084 ms QT Int : 420 ms P-R-T Axes : 038 024 058 degrees QTc Int : 422 ms Normal sinus rhythm Normal ECG When compared with ECG of 09-NOV-2021 10:49, No significant change was found Referred By: Jennifer Ford Electronically Signed By:LESA BURGER
[2021-11-09 11:25] LABS: Basophils Percent Auto 0.5 % (0-2); Eosinophils Absolute Auto 0.1 X10*3/uL (0.0-0.4); Hemoglobin 17.4 g/dl (14.0-18.0); Mean Platelet Volume 10.3 fL (9.4-12.4); PLT CLUMP 1; SCAN SMEAR FLAG 1
[2021-11-09 11:27] LABS: Eosinophils Percent Auto 2.5 % (0-4); Hematocrit 51.6 % (42.0-52.0); Imm Gran Abs Auto 0.03 X10*3/uL (0.00-0.03); Imm Gran Pct Auto 0.7 % (0.0-0.4); Lymphocytes Absolute Auto 0.6 X10*3/uL (1.2-4.9); Lymphocytes Percent Auto 13.8 % (20-40); MANUAL DIFF FLAG SCAN; Mean Corpuscular HGB Conc 33.7 g/dl (31.0-36.0); Mean Corpuscular Hemoglobin 33.9 pg (27.0-33.0); Mean Corpuscular Volume 100.4 fL (80.0-98.0); Monocytes Absolute Auto 0.4 X10*3/uL (0.1-1.2); Monocytes Percent Auto 8.5 % (2-11); Neutrophils Absolute Auto 3.2 x10*3/uL (2.0-8.3); Red Blood Count 5.14 X10*6/uL (4.60-5.80); Red Cell Distribution Width 12.3 % (11.0-16.0)
[2021-11-09 11:30] LABS: INTERNATIONAL NORM RATIO 3.1 (0.9-1.1); Prothrombin Time 36.1 SEC (9.9-13.0)
[2021-11-09 11:38] LABS: Anion Gap 10 (12-20); Blood Urea Nitrogen 23 mg/dL (9-16); Carbon Dioxide 30 mmol/L (22-29); Chloride 106 mmol/L (96-108); Creatinine Clr Calc Pharmacy 55.2; Estimated Glomerular Filt Rate 56; Glucose Random 76 mg/dL (60-115); Potassium 4.6 mmol/L (3.3-5.1); Sodium 141 mmol/L (135-145)
[2021-11-09 11:40] LABS: COVID-19 Test Negative (Negative)
[2021-11-09 11:43] LABS: Platelet Count 127 X10*3/uL (160-400); White Blood Count 4.4 X10*3/uL (4.8-10.8)
[2021-11-09] MEDS: Morphine Sulfate 2 MG/ML CARTRIDGE IVPUSH (11:52)
[2021-11-09] MEDS: ondansetron HCL 4 MG/2 ML VIAL IVPUSH (11:53)
[2021-11-09] MEDS: Acetaminophen 325 MG TABLET 650 MG PO (11:53)
[2021-11-09] MEDS: 0.9 % Sodium Chloride 500 ML IV (11:55)
--- NOTE | 2021-11-09 12:06 | PC.NURSE ---
pt reporting paini after morphine administration. stating he has an allergy. educational interpreter called and bel[place] speaking staff assisting in the time awaiting educational interpreter. pt reported that he has never gotten morphine before and now he has bad pain in his arm and leg . pt stated that he does not have an allergy, but that he has never had morphine before. VSS. HR 62, SaO2 99%, RR 12, BP 159/95 (122) - pt denies any difficulty breathing or swelling at this time. will inform MD Ford
[2021-11-09 13:24] LABS: Phenytoin Dilantin 7.9 ug/mL (10.0-20.0)
[2021-11-09 14:47] VITALS: BP 144/84; PULSE 61; RESP 12; O2SAT 97
[2021-11-09 15:00] LABS: Troponin-I High Sensitivity 21.8 ng/L (<3.5-35.0)
== END 2021-11-09 15:38 | disposition home or self-care (01) ==
PROVIDERS: Emergency Provider Emergency Medicine; PCP Family Medicine
DX: R07.9 Chest pain, unspecified (principal); Z20.822 Contact with and (suspected) exposure to COVID-19; Z86.718 Personal history of other venous thrombosis and embolism; Z86.711 Personal history of pulmonary embolism; Z79.01 Long term (current) use of anticoagulants
CPT/HCPCS: 36415; 71045; 80048; 80185; 84484; 85025; 85610; 87635; 93005; 96361; 96374; 96375; 99284; J2270; J2405

== ENCOUNTER 2021-11-16 13:52 | Outpatient (REF) | payer MEDICARE, SELFPAY ==
[2021-11-16 14:23] LABS: INTERNATIONAL NORM RATIO 3.4 (0.9-1.1); Prothrombin Time 39.1 SEC (9.9-13.0)
== END 2021-11-16 13:53 | disposition home or self-care (01) ==
LOC: HO.LAB 13:52
PROVIDERS: Family Medicine; PCP Family Medicine; Visit Provider Family Medicine
DX: Z79.01 Long term (current) use of anticoagulants (principal)
CPT/HCPCS: 36415; 85610

== ENCOUNTER 2021-11-23 12:41 | Outpatient (REF) | payer MEDICARE, SELFPAY ==
[2021-11-23 14:34] LABS: INTERNATIONAL NORM RATIO 1.8 (0.9-1.1); Prothrombin Time 20.2 SEC (9.9-13.0)
== END 2021-11-23 12:42 | disposition home or self-care (01) ==
LOC: HO.LAB 12:41
PROVIDERS: Absent Provider Family Medicine; PCP Family Medicine; Visit Provider Family Medicine
DX: Z79.01 Long term (current) use of anticoagulants (principal)
CPT/HCPCS: 36415; 85610

== ENCOUNTER 2021-12-01 09:57 | Outpatient (REF) | payer MEDICARE, SELFPAY ==
[2021-12-01 10:48] LABS: Baso%MD 0.7 %; Eos%MD 3.3 %; Hematocrit 48.7 % (42.0-52.0); Hemoglobin 16.4 g/dl (14.0-18.0); IG%MD 0.5 %; Lymph%MD 15.3 %; Mean Corpuscular HGB Conc 33.7 g/dl (31.0-36.0); Mean Corpuscular Hemoglobin 34.1 pg (27.0-33.0); Mean Corpuscular Volume 101.2 fL (80.0-98.0); Mean Platelet Volume 10.2 fL (9.4-12.4); Mono%MD 8.6 %; Neut%MD 71.6 %; Platelet Count 124 X10*3/uL (160-400); Red Blood Count 4.81 X10*6/uL (4.60-5.80); Red Cell Distribution Width 12.6 % (11.0-16.0); White Blood Count 4.2 X10*3/uL (4.8-10.8)
[2021-12-01 11:33] LABS: Atypical Lymphs Percent Manual 1 % (0-6); Band Neutrophils Percent 0 % (3-5); Eosinophils Absolute Manual 0.3 X10*3/uL (0.0-0.4); Eosinophils Percent Manual 7 % (0-4); Lymphocytes Absolute Manual 0.5 X10*3/uL (1.2-4.9); Lymphocytes Percent Manual 12 % (20-40); Monocytes Absolute Manual 0.4 X10*3/uL (0.1-1.2); Monocytes Percent Manual 9 % (2-11); Neutrophils Percent Manual 71 % (45-73)
[2021-12-01 11:34] LABS: Platelet Estimate DECREASED (NORMAL); Platelet Morphology Comment NORMAL
[2021-12-01 11:35] LABS: Tear Drop Cells 1+ (0-2) /OIF
[2021-12-01 11:38] LABS: RBC Morphology NORMAL
[2021-12-02 09:12] LABS: Erythropoietin (EPO) 18.8 mIU/mL (2.6-18.5)
== END 2021-12-01 09:58 | disposition home or self-care (01) ==
LOC: HO.LAB 09:57
PROVIDERS: Absent Provider Family Medicine; PCP Family Medicine; Visit Provider Family Medicine
DX: D75.1 Secondary polycythemia (principal)
CPT/HCPCS: 36415; 82668; 85007; 85027

== ENCOUNTER → 2021-12-28 14:00 | Outpatient (BNV) | payer OTHER, SELFPAY | PROVIDERS: PCP Family Medicine; Visit Provider Internal Medicine Medical Oncology | DX: D75.1 Secondary polycythemia (principal) | CPT/HCPCS: 99203; 99213; 99214 ==

== ENCOUNTER → 2022-04-21 09:25 | Outpatient (BNVA) | payer OTHER, SELFPAY | PROVIDERS: PCP Family Medicine; Visit Provider Surgery | DX: Z01.818 Encounter for other preprocedural examination (principal); Z86.718 Personal history of other venous thrombosis and embolism; Z79.01 Long term (current) use of anticoagulants | CPT/HCPCS: 99202 ==

== ENCOUNTER 2022-04-30 08:44 | Outpatient (REF) | payer OTHER, SELFPAY ==
--- NOTE | ~2022-04-30 | CT_ITS ---
EXAMINATION: CT HEAD WITHOUT CONTRAST CLINICAL INFORMATION: Amnesia COMPARISON: None TECHNIQUE: Contiguous axial imaging was performed from the skull base to vertex without intravenous administration of contrast. This CT examination was performed using dose optimization techniques as appropriate, variously including the following: *Automated exposure control *Adjustment of mA and/or kV according to patient size (this includes techniques or standardized protocols for targeted exams where dose is matched to indication/reason for exam; i.e. extremities or head) *Use of iterative reconstruction technique DLP: 789 mGy-cm FINDINGS: There is no evidence of acute intracranial hemorrhage or territorial infarction. No abnormal mass effect or midline shift is seen. Escoto to white matter differentiation is well preserved. No extra-axial fluid collections are identified. The ventricles are normal in size. There is no abnormal attenuation within the brain parenchyma. The osseous structures and soft tissues are normal. There is mild mucoperiosteal thickening left sphenoid sinus. Rest the visualized paranasal sinuses are clear. CT/CT head/brain wo con IMPRESSION: No acute intracranial process seen.
== END 2022-04-30 08:45 | disposition home or self-care (01) ==
LOC: HO.CT 08:44
PROVIDERS: Visit Provider Registered Nurse
DX: R41.3 Other amnesia (principal)
CPT/HCPCS: 70450

== ENCOUNTER 2022-05-25 15:33 | Emergency (ER) | payer OTHER, SELFPAY ==
--- NOTE | ~2022-05-25 | XR_ITS ---
EXAMINATION: XR CHEST CLINICAL INFORMATION: Chest pain radiating to left arm COMPARISON: Previous chest x-ray most recent October 2021 TECHNIQUE: Frontal view of the chest was obtained. FINDINGS: The cardiac and mediastinal contours are stable. There may be subsegmental atelectasis at the left lung base. The lungs are otherwise clear. There is no pleural effusion or pneumothorax. No acute bone abnormality. XR/XR chest 1V IMPRESSION: Subsegmental atelectasis at the left lung base.
--- NOTE | 2022-05-25 15:39 | ECG_ITS ---
Test Reason : CHEST PAIN Blood Pressure : / mmHG Vent. Rate : 096 BPM Atrial Rate : 096 BPM P-R Int : 130 ms QRS Dur : 074 ms QT Int : 328 ms P-R-T Axes : 037 018 007 degrees QTc Int : 414 ms Normal sinus rhythm Minimal voltage criteria for LVH, may be normal variant ( R in aVL ) Possible Inferior infarct , age undetermined Abnormal ECG When compared with ECG of 09-NOV-2021 11:41, Vent. rate has increased BY 35 BPM Borderline criteria for Inferior infarct are now Present T wave inversion now evident in Inferior leads Nonspecific T wave abnormality now evident in Anterior leads Referred By: Generic ED Physician Electronically Signed By:BEBE MENARD
[2022-05-25 16:07] VITALS: BP 123/81; PULSE 79; RESP 20; TEMP 37.8; O2SAT 96; BMI 25.8
[2022-05-25 16:23] LABS: MANUAL DIFF FLAG NO
[2022-05-25 16:28] LABS: Basophils Percent Auto 0.2 % (0-2); Eosinophils Absolute Auto 0.2 X10*3/uL (0.0-0.4); Eosinophils Percent Auto 2.8 % (0-4); Hematocrit 45.9 % (42.0-52.0); Hemoglobin 15.7 g/dl (14.0-18.0); Imm Gran Abs Auto 0.04 X10*3/uL (0.00-0.03); Imm Gran Pct Auto 0.7 % (0.0-0.4); Lymphocytes Absolute Auto 0.3 X10*3/uL (1.2-4.9); Lymphocytes Percent Auto 4.2 % (20-40); Mean Corpuscular HGB Conc 34.2 g/dl (31.0-36.0); Mean Corpuscular Volume 99.4 fL (80.0-98.0); Mean Platelet Volume 10.3 fL (9.4-12.4); Monocytes Absolute Auto 0.7 X10*3/uL (0.1-1.2); Monocytes Percent Auto 11.9 % (2-11); Neutrophils Absolute Auto 4.8 x10*3/uL (2.0-8.3); Neutrophils Percent Auto 80.2 % (45-73); Platelet Count 102 X10*3/uL (160-400); Red Blood Count 4.62 X10*6/uL (4.60-5.80); Red Cell Distribution Width 12.6 % (11.0-16.0)
--- NOTE | 2022-05-25 16:36 | ED.CHESTPAIN ---
HPI - Chest Pain General Chief Complaint: Chest Pain Stated Complaint: chest pain Time Seen by Provider: 05/25/22 16:36 Source: patient Mode of arrival: ambulatory Limitations: no limitations History of Present Illness HPI narrative: 66 y/o male with history of DVT/PE on Coumadin, CKD, aortic aneurysm, alcohol abuse, hemorrhoids, mood disorder, PVD, seizures, depression who presents to the ER for evaluation of chest pain that started at 08:00 this morning and subsided at 14:00 today. He reports he was lying in bed when he had sudden sharp twinges of chest pain on his left side. Initially was 10/10 and come and go. Would get worse when he would walk around. It did not radiate and it was sharp and ?twinging. ? He has had several episodes of chest pain similar to this. He has seen a health informatics instructor in the past. He reports the pain slowly started subsiding and is much better now. He also reports new dry cough over the last couple of days. He reports his chest pain was worse when he moves around and touches his chest wall. He is not bring up any phlegm. He is not short of breath. He denies any fever or chills. He states he had COVID about 4 months ago. complaint: chest pain Onset (ago): hour(s) Timing of current episode: episodic Prior episodes: Yes Onset: during rest and during exertion Pain location: left chest and right chest Pain radiation: none Severity: severe Pain scale (0-10): 10 Quality: sharp Relieving factors: nothing Exacerbating factors: exertion and palpation Context: recent illness Associated symptoms: cough Treatment prior to arrival: aspirin Risk Factors Coronary artery disease risk factors: none Thoracic aortic dissection risk factors: none Pulmonary embolism risk factors: history of deep vein thrombosis and history of pulmonary embolism Related Data Home Medications Medication Instructions Recorded Confirmed acetaminophen 500 mg tablet 500 mg PO Q12H PRN Pain (Scale 08/06/20 05/14/22 Score 1-3) atorvastatin 10 mg tablet 10 mg PO BEDTIME 08/06/20 05/14/22 buspirone 30 mg tablet 30 mg PO BID 08/06/20 05/14/22 cholecalciferol (vitamin D3) 25 25 mcg PO QAM 08/06/20 05/14/22 mcg (1,000 unit) tablet fluticasone propionate 50 1 spray intranasal DAILY 08/06/20 05/14/22 mcg/actuation nasal spray,suspension folic acid 1 mg tablet 1 mg PO QAM 08/06/20 05/14/22 lidocaine 5 % topical cream 1 applic topical DAILY 08/06/20 05/14/22 lisinopril 2.5 mg tablet 2.5 mg PO QAM 08/06/20 05/14/22 loratadine 10 mg tablet 10 mg PO DAILY 08/06/20 05/14/22 mirtazapine 45 mg tablet 45 mg PO BEDTIME 08/06/20 05/14/22 phenytoin sodium extended 100 mg 300 mg PO QAM 08/06/20 05/14/22 capsule thiamine HCl (vitamin B1) 100 mg 100 mg PO QAM 08/06/20 05/14/22 tablet warfarin 4 mg tablet 4 mg PO 5XW 10/31/20 05/14/22 docusate sodium 100 mg capsule 100 mg PO BID 11/13/20 05/14/22 ergocalciferol (vitamin D2) 1,250 1,250 mcg PO DAILY 11/13/20 05/14/22 mcg (50,000 unit) capsule ketoconazole 2 % topical cream 2 appl topical Q OTHER DAY PRN Pain 11/13/20 05/14/22 naltrexone 50 mg tablet 50 mg PO DAILY 11/13/20 05/14/22 Previous Rx's Medication Instructions Recorded omeprazole 20 mg capsule,delayed 20 mg PO DAILY gerd #30 caps 08/08/20 release warfarin 3 mg tablet 3 mg PO DAILY #90 tabs 10/31/20 acetaminophen 325 mg capsule 650 mg PO Q4H PRN fever or pain 10/18/21 (Tylenol) #20 caps sodium,potassium,mag sulfates 17.5 See Rx Instructions PO .COMPLEX 04/21/22 gram-3.13 gram-1.6 gram oral soln #354 mL (Suprep Bowel Prep Kit) benzonatate 100 mg capsule 100 mg PO TID PRN cough #30 caps 05/25/22 Allergies Allergy/AdvReac Type Severity Reaction Status Date / Time ibuprofen [From Motrin] Allergy Intermediate UNKNOWN Verified 04/21/22 09:48 acetaminophen [From Percocet] Allergy Unknown Verified 04/21/22 09:48 oxycodone Allergy Unknown Verified 04/21/22 09:48 Review of Systems Review of Systems: Constitutional: No Fever, No Chills ENT/Mouth: No sore throat, No Rhinorrhea, No Swallowing Difficulty Eyes: No Eye Pain, No Swelling, No Redness Cardiovascular:+ Chest Pain, No SOB, No Orthopnea, No Edema Respiratory: +Cough, +Sputum, No Wheezing, No dyspnea Gastrointestinal: No Nausea, No Vomiting, No Diarrhea, No abdominal Pain, No Hematochezia, No Melena Genitourinary: No Dysuria, No Urinary Frequency, No Hematuria Musculoskeletal: No joint pain, No Myalgias Skin: No Skin Lesions, No rash Neuro: + Weakness, No Numbness, No Dizziness, + Headache Psych: No Anxiety/Panic, No Depression Heme/Lymph: No Bruising, No Lymphadenopathy Endocrine: No Polyuria, No Polydipsia FORMERLY [facility], 1928–1983 Past Medical History Medical History (Updated 05/25/22 @ 18:38 by JOSE Cho) Alcohol abuse Aortic aneurysm Chronic anticoagulation CKD (chronic kidney disease) Colon cancer screening Depression DVT (deep venous thrombosis) GERD (gastroesophageal reflux disease) Hemorrhoid Hyperhomocysteinemia Mood disorder Mood disorder due to a general medical condition Peripheral vascular disease Seizure Surgical History Hx of colonoscopy Hx of hernia repair Family History Family History Paternal Grandmother Cancer Maternal Grandfather Cancer Paternal Aunt Cancer Social History Social History Household Members: None Housing: Apartment Are you a primary career professional to a significant other at home: No Do you presently have visiting nurse or other home services: No Alcohol intake: current Alcohol intake frequency: a few times a month Alcohol type: beer Patient Tobacco Use Status: Never used Tobacco Advance Directives: Yes Advance Directives on File: Yes Advance Directives Date on File: 10/01/20 service: No Current occupational status: disabled Physical Exam Vital Signs: Vital Signs: Last Vital Signs Temp 99.8 F 05/25/22 18:21 Pulse 77 05/25/22 18:21 Resp 14 05/25/22 18:21 BP 110/76 05/25/22 18:21 Pulse Ox 96 05/25/22 18:21 O2 Del Method 05/25/22 18:21 BMI result Body Mass Index 25.8 Appearance: Alert. Oriented X3. No acute distress. Eyes: Pupils equal, round and reactive to light. ENT: Pharynx normal. Poor dentition Neck: Normal inspection. Neck supple. CVS: Normal heart rate and rhythm. Pulses normal. Respiratory: No respiratory distress. Breath sounds normal. Abdomen: Soft and nontender. +BS x4 Skin: Skin warm and dry. Normal skin color. Normal skin turgor. No rashes. Extremities: No lower extremity edema. No calf tenderness Neuro: Oriented X 3. No motor deficit. No sensory deficit. Course Course Course Narrative: 66-year-old male with a history of CKD, PE/DVT on Coumadin, PVD, AAA who presents to the ER for evaluation of nonradiating, intermittent, sharp, chest pain. On arrival to the ER patient's chest pain is much improved. During interview he would get episodes of the pain in his right and left chest, brief and nonradiating. On arrival his vital signs are within normal limits and his exam reveals his chest pain is reproducible along his anterior chest wall. Will get chest x-ray to rule out pneumonia, COVID swab, EKG, labs. Doubt ACS. Symptoms and examination are not concerning for dissection at this time. Reevaluation(s) Reevaluation #1: Troponin is 11. Repeat is 12. He remains chest pain free. His COVID swab is positive. X-ray with some mild left lower lobe atelectasis, no infiltrate or evidence of COVID pneumonia. His vital signs remain within normal limits. Suspect his chest pain was muscular in nature due to coughing from COVID. He is stable for discharge home with supportive care. Instructions and return precautions were discussed using staff trainer. Stable for DC. MDM - Chest Pain Medical Records Data Attestation: I reviewed the patient's medical records. Lab Data Attestation: I reviewed the patient's lab results. Result diagrams: 05/25/22 16:19 05/25/22 16:19 Labs: Lab Results 05/25/22 05/25/22 05/25/22 Range/Units 16:19 16:19 16:19 WBC 6.0 (4.8-10.8) X10*3/uL RBC 4.62 (4.60-5.80) X10*6/uL Hgb 15.7 (14.0-18.0) g/dl Hct 45.9 (42.0-52.0) % MCV 99.4 H (80.0-98.0) fL MCH 34.0 H (27.0-33.0) pg MCHC 34.2 (31.0-36.0) g/dl RDW 12.6 (11.0-16.0) % Plt Count 102 L (160-400) X10*3/uL MPV 10.3 (9.4-12.4) fL Immature Gran % (Auto) 0.7 H (0.0-0.4) % Neut % (Auto) 80.2 H (45-73) % Lymph % (Auto) 4.2 L (20-40) % [place] % (Auto) 11.9 H (2-11) % Eos % (Auto) 2.8 (0-4) % Baso % (Auto) 0.2 (0-2) % Lymph # (Auto) 0.3 L (1.2-4.9) X10*3/uL [place] # (Auto) 0.7 (0.1-1.2) X10*3/uL Eos # (Auto) 0.2 (0.0-0.4) X10*3/uL Baso # (Auto) 0.0 (0.0-0.2) X10*3/uL Abs Immat Gran (auto) 0.04 H (0.00-0.03) X10*3/uL Absolute Neuts (auto) 4.8 (2.0-8.3) x10*3/uL Absolute Nucleated RBC 0.000 (0.0-0.012) X10*3/uL Nucleated RBC % (auto) 0.0 (0.0-0.2) /100WBC Sodium 138 (135-145) mmol/L Potassium 4.8 (3.3-5.1) mmol/L Chloride 107 (96-108) mmol/L Carbon Dioxide 21 L (22-29) mmol/L Anion Gap 15 (12-20) BUN 24 H (9-16) mg/dL Creatinine 1.39 (0.5-1.4) mg/dL Estim Creat Clear Calc 50.8 Estimated GFR 51 Random Glucose 108 (60-115) mg/dL Calcium 9.1 (8.4-10.2) mg/dL Troponin I High Sens 11.8 (<3.5-35.0) ng/L COVID-19 (DALI) (Negative) COVID-19 Clin Com 05/25/22 05/25/22 Range/Units 17:11 19:31 WBC (4.8-10.8) X10*3/uL RBC (4.60-5.80) X10*6/uL Hgb (14.0-18.0) g/dl Hct (42.0-52.0) % MCV (80.0-98.0) fL MCH (27.0-33.0) pg MCHC (31.0-36.0) g/dl RDW (11.0-16.0) % Plt Count (160-400) X10*3/uL MPV (9.4-12.4) fL Immature Gran % (Auto) (0.0-0.4) % Neut % (Auto) (45-73) % Lymph % (Auto) (20-40) % [place] % (Auto) (2-11) % Eos % (Auto) (0-4) % Baso % (Auto) (0-2) % Lymph # (Auto) (1.2-4.9) X10*3/uL [place] # (Auto) (0.1-1.2) X10*3/uL Eos # (Auto) (0.0-0.4) X10*3/uL Baso # (Auto) (0.0-0.2) X10*3/uL Abs Immat Gran (auto) (0.00-0.03) X10*3/uL Absolute Neuts (auto) (2.0-8.3) x10*3/uL Absolute Nucleated RBC (0.0-0.012) X10*3/uL Nucleated RBC % (auto) (0.0-0.2) /100WBC Sodium (135-145) mmol/L Potassium (3.3-5.1) mmol/L Chloride (96-108) mmol/L Carbon Dioxide (22-29) mmol/L Anion Gap (12-20) BUN (9-16) mg/dL Creatinine (0.5-1.4) mg/dL Estim Creat Clear Calc Estimated GFR Random Glucose (60-115) mg/dL Calcium (8.4-10.2) mg/dL Troponin I High Sens 12.9 (<3.5-35.0) ng/L COVID-19 (DALI) Positive A (Negative) COVID-19 Clin Com See Note ECG Data ECG #1: Attestation: I personally reviewed and interpreted this ECG as follows: ECG interpretation date: 05/25/22 ECG interpretation time: 19:17 Prior ECG tracings: available for review Interpretation: Normal sinus rhythm, ventricular rate 96 beats per minute, T-wave inversion in leads [address] segment elevations. Normal MN interval, normal QTC. The lead 3 T-wave inversion is new from prior, V1 is old. Critical Care Time Critical Care Time Critical Care Time: No Discharge Plan Discharge Clinical Impression: COVID-19 Patient Disposition: Home, Self-Care Instructions: Covid-19 Viral Syndrome and Novel Coronavirus (ED) Hey/Ath Additional Instructions: You were found to be COVID-19 POSITIVE today. Your exam and oxygen levels were normal. Rest. Drink plenty of fluids. Do not go out in public while you are feeling unwell. Take over the counter cold/flu medications as needed for your symptoms. Take Tylenol 975 mg every 6 hours as needed for fevers and body aches. Follow up with your doctor this week and your Territory Account Representative. If you shortness of breath worsens, if you develop difficulty breathing or any other concerning symptom come back to the ER for further evaluation. Se encontr? que usted es COVID-19 POSITIVO hoy. Greer examen y los niveles de ox?landry fueron normales. Descansar. Beber mucho l?quido. No salga en p?blico mientras no se sienta breanna. [place] medicamentos de venta keys[place]wn para el resfriado o la gripe seg?n sea necesario para raimundo s?ntomas. [place] Tylenol y/o Motrin seg?n sea necesario para la fiebre y los lin corporales. Seguimiento con greer m?dico esta semana y greer cardi?logo. Si greer dificultad para respirar empeora, si desarrolla dificultad para respirar o cualquier otro s?ntoma preocupante, regrese a la beatris de emergencias para bijan evaluaci?n adicional. Prescriptions: New benzonatate 100 mg capsule 100 mg PO TID PRN (Reason: cough) Qty: 30 0RF No Action atorvastatin 10 mg tablet 10 mg PO BEDTIME lidocaine 5 % cream 1 applic topical DAILY thiamine HCl (vitamin B1) 100 mg tablet 100 mg PO QAM phenytoin sodium extended 100 mg capsule 300 mg PO QAM acetaminophen 500 mg tablet 500 mg PO Q12H PRN (Reason: Pain (Scale Score 1-3)) buspirone 30 mg tablet 30 mg PO BID mirtazapine 45 mg tablet 45 mg PO BEDTIME folic acid 1 mg tablet 1 mg PO QAM fluticasone propionate 50 mcg/actuation spray,suspension 1 spray intranasal DAILY lisinopril 2.5 mg tablet 2.5 mg PO QAM loratadine 10 mg tablet 10 mg PO DAILY cholecalciferol (vitamin D3) 25 mcg (1,000 unit) tablet 25 mcg PO QAM omeprazole 20 mg capsule,delayed release(DR/EC) 20 mg PO DAILY Qty: 30 0RF acetaminophen [Tylenol] 325 mg capsule 650 mg PO Q4H PRN (Reason: fever or pain) Qty: 20 0RF warfarin 3 mg tablet 3 mg PO DAILY Qty: 90 0RF Protocol: Dose Management Condition: Tuesday (Week One) Dose/Route: 4 mg Instruction: 1 x 4 mg tablet Condition: Tuesday Dose/Route: 4 mg Instruction: 1 x 4 mg tablet Condition: Tuesday Dose/Route: 3 mg Instruction: 1 x 3 mg tablet Condition: Tuesday Dose/Route: 4 mg Instruction: 1 x 4 mg tablet Condition: Dose/Route: 4 mg Instruction: 1 x 4 mg tablet Condition: Tuesday Dose/Route: 4 mg Instruction: 1 x 4 mg tablet Condition: Tuesday Dose/Route: 4 mg Instruction: 1 x 4 mg tablet Condition: Tuesday (Week Two) Dose/Route: 4 mg Instruction: 1 x 4 mg tablet Condition: Tuesday Dose/Route: 4 mg Instruction: 1 x 4 mg tablet Condition: Tuesday Dose/Route: 3 mg Instruction: 1 x 3 mg tablet Condition: Tuesday Dose/Route: 4 mg Instruction: 1 x 4 mg tablet Condition: Dose/Route: 4 mg Instruction: 1 x 4 mg tablet Condition: Tuesday Dose/Route: 4 mg Instruction: 1 x 4 mg tablet Condition: Tuesday Dose/Route: 4 mg Instruction: 1 x 4 mg tablet Protocol Text: Adjustment Start Date: 07/02/21 INR Value: 1.9 INR Date: 07/02/21 Recheck Date: 07/16/21 warfarin 4 mg tablet 4 mg PO 5XW Protocol: Dose Management Condition: Tuesday (Week One) Dose/Route: 4 mg Instruction: 1 x 4 mg tablet Condition: Tuesday Dose/Route: 4 mg Instruction: 1 x 4 mg tablet Condition: Tuesday Dose/Route: 3 mg Instruction: 1 x 3 mg tablet Condition: Tuesday Dose/Route: 4 mg Instruction: 1 x 4 mg tablet Condition: Dose/Route: 4 mg Instruction: 1 x 4 mg tablet Condition: Tuesday Dose/Route: 4 mg Instruction: 1 x 4 mg tablet Condition: Tuesday Dose/Route: 4 mg Instruction: 1 x 4 mg tablet Condition: Tuesday (Week Two) Dose/Route: 4 mg Instruction: 1 x 4 mg tablet Condition: Tuesday Dose/Route: 4 mg Instruction: 1 x 4 mg tablet Condition: Tuesday Dose/Route: 3 mg Instruction: 1 x 3 mg tablet Condition: Tuesday Dose/Route: 4 mg Instruction: 1 x 4 mg tablet Condition: Dose/Route: 4 mg Instruction: 1 x 4 mg tablet Condition: Tuesday Dose/Route: 4 mg Instruction: 1 x 4 mg tablet Condition: Tuesday Dose/Route: 4 mg Instruction: 1 x 4 mg tablet Protocol Text: Adjustment Start Date: 07/02/21 INR Value: 1.9 INR Date: 07/02/21 Recheck Date: 07/16/21 ketoconazole 2 % cream 2 appl topical Q OTHER DAY PRN (Reason: Pain) docusate sodium 100 mg capsule 100 mg PO BID naltrexone 50 mg tablet 50 mg PO DAILY ergocalciferol (vitamin D2) 1,250 mcg (50,000 unit) capsule 1,250 mcg PO DAILY Suprep Bowel Prep Kit 17.5-3.13-1.6 gram recon soln See Rx Instructions PO .COMPLEX Qty: 354 0RF Rx Instructions: DILUTE; drink full amount early evening before AND next morning at least 2 hr before procedure; follow w 960 mL water PO Print Language: [place]
[2022-05-25 16:46] LABS: Anion Gap 15 (12-20); Blood Urea Nitrogen 24 mg/dL (9-16); Calcium 9.1 mg/dL (8.4-10.2); Carbon Dioxide 21 mmol/L (22-29); Chloride 107 mmol/L (96-108); Creatinine Clr Calc Pharmacy 50.8; Estimated Glomerular Filt Rate 51; Glucose Random 108 mg/dL (60-115); Potassium 4.8 mmol/L (3.3-5.1); Sodium 138 mmol/L (135-145)
[2022-05-25 16:52] LABS: Troponin-I High Sensitivity 11.8 ng/L (<3.5-35.0)
[2022-05-25 17:21] LABS: COVID-19 Test Positive (Negative); IDNOW Serial# 16C4AD1C
[2022-05-25 18:21] VITALS: BP 110/76; PULSE 77; RESP 14; TEMP 37.7; O2SAT 96
[2022-05-25 19:55] LABS: Troponin-I High Sensitivity 12.9 ng/L (<3.5-35.0)
[2022-05-25 20:32] VITALS: BP 123/81; PULSE 71; RESP 12; TEMP 37.6; O2SAT 98
== END 2022-05-25 20:41 | disposition home or self-care (01) ==
PROVIDERS: Physician Assistant; Emergency Provider Internal Medicine; PCP Family Medicine
DX: R07.89 Other chest pain (principal); R05.9 Cough, unspecified; Z20.822 Contact with and (suspected) exposure to COVID-19; Z79.899 Other long term (current) drug therapy; Z86.718 Personal history of other venous thrombosis and embolism; Z79.01 Long term (current) use of anticoagulants
CPT/HCPCS: 36415; 71045; 80048; 84484; 85025; 87635; 93005; 99283; 99284

== ENCOUNTER → 2022-07-28 08:45 | Outpatient (BNVA) | payer OTHER, SELFPAY | PROVIDERS: PCP Family Medicine; Referring Provider Family Medicine; Visit Provider Internal Medicine | DX: I71.21 Aneurysm of the ascending aorta, without rupture (principal); I35.0 Nonrheumatic aortic (valve) stenosis | CPT/HCPCS: 99202 ==

== ENCOUNTER → 2022-08-19 10:20 | Outpatient (REF) | payer OTHER, SELFPAY ==
--- NOTE | 2022-08-19 10:22 | CA_ITS ---
Transthoracic Echocardiogram Patient (Last, First, Middle): Chriss Munoz, Gender: Male Date of : 1955 Age: 67 Procedure Date: 08/19/2022 Procedure Type: Transthoracic Echocardiogram Location: OP Height: 175.26 cm Weight: 72.58 kg BSA: 1.88 m2 Heart Rate: bpm BP: 130 / 80 mmHg Pound Keeper: TO Referring MD: Karri Trinidad MD Social Science Manager: Paulie Viera MD Symptoms: I71.21 - Aneurysm of the ascending aorta, without rupture Study Quality: Fair/Contrast ECG Rhythm: Sinus Conclusions: - 1. Normal LV systolic function with impaired relaxation filling pattern 2. Mild aortic stenosis 3. Mildly dilated ascending aorta at 4.1 cm 4. Normal RV systolic pressure 5. No gross pericardial effusion Findings Procedure Information Contrast agent, definity, is being given per protocol without apparent complications. Left Ventricle Normal left ventricular size, thickness, and systolic function. The visually estimated ejection fraction is between 60-65%. Spectral Doppler is indicative of an impaired relaxation filling pattern. Right Ventricle Normal right ventricular cavity size and systolic function. Atria The left atrium is normal in size. There is no evidence of interatrial shunt. The right atrium is normal in size. Aortic Valve There is mild calcification of the aortic valve. There is moderate thickening of the aortic valve. There is mild aortic valve stenosis. The peak aortic gradient is 25 mmHg.The mean gradient is 14 mmHg. The aortic valve area is 1.60 cm2. There is trace (trivial) aortic valve regurgitation. Mitral Valve There is mild anterior and moderate posterior mitral leaflet thickening. There is moderate mitral annular calcification. There is trace mitral valve regurgitation. There is no mitral valve stenosis. Pulmonic Valve The pulmonic valve was not well visualized. Tricuspid Valve Likely normal tricuspid valve structure and function. There is trace tricuspid valve regurgitation. The right ventricular systolic pressure is 24 mmHg. There is no evidence of pulmonary hypertension. Great Vessels The pulmonary artery was not well visualized. There is mild dilatation of the ascending aorta measuring 4.10 cm. Venous The inferior vena cava is normal in size and collapses greater than 50% with inspiration. Pericardium/Pleural There is no evidence of pericardial effusion. Prior Study Comparison no previous study in the last 5 years for comparison Measurements 2D Linear Measurements IVSd: 1.12 0.6-0.9/0.6-1.0 cm LVIDd: 4.18 3.9-5.3/4.2-5.9 cm LVIDd Index: 2.22 2.4-3.2/2.2-3.1 cm/m2 LVIDs: 2.60 2.0-3.6 cm LVPWd: 1.12 0.7-1.1 cm LA Diam: 3.10 2.7-3.8/3.0-4.0 cm LAIDs Index: 1.65 1.5-2.3 cm/m2 LV Mass: 199.24 67-162/88-224 g LV Mass Index: 105.98 43-95/49-115 g/m2 LVOT Diam: 2.00 3.0+(-)1.3 cm 2D Systolic Function EF 4C: 72.10 >55% Mitral Valve MV Pk E: 0.54 MV PK A: 0.51 MV Decel Time: 249.00 E/A: 1.10 E'Lateral: 10.10 E'Medial: 6.42 E/E' Med: 8.50 E/E' Lat: 5.40 PHT: 73.00 MVA PHT: 3.01 Decel [place]: 2.18 Aortic Valve AoV Pk Eze: 2.48 AoV Mn Eze: 1.71 AoV VTI: 0.50 AoV Pk Grad: 25.00 Aov Mn Grad: 14.00 HUSSEIN Cont.VTI: 1.60 LVOT LVOT Pk Eze: 1.20 LVOT Mn Eze: 0.78 LVOT VTI: 0.25 LVOT Pk Grad: 6.00 LVOT Mn Grad: 3.00 LVOT Diam: 2.00 LVOT Area: 3.14 Diastolic Function MV Pk E: 0.54 MV Pk A: 0.51 E/A: 1.10 E'Medial: 6.42 E/E' Med: 8.50 E' Laterial: 10.10 E/E' Lat: 5.40 Right Ventricle TAPSE (mm): 21.60 TVS' Eze: 12.80 Tricuspid Valve TR Pk Eze: 2.31 TR Pk Grad: 21.00 RA Press: 3.00 RVSP: 24.00 Great Vessels Aorta Sinus of Valsalva: 3.52 2.0-3.[address] [place]: 2.68 1.7-3.4 cm Ao Asc: 4.10 2.1-3.4 cm Ao Arch: 3.50 Updated in Other Vendor System with Status of Final Paulie Viera MD electronically signed on 08/20/2022 1:54:58 PM with status of Final
== END ==
LOC: HO.CARD 10:20
PROVIDERS: PCP Family Medicine; Visit Provider Internal Medicine
DX: I71.21 Aneurysm of the ascending aorta, without rupture (principal)
CPT/HCPCS: 93306; Q9957

== ENCOUNTER 2022-09-14 14:41 | Emergency (ER) | payer OTHER, SELFPAY ==
--- NOTE | ~2022-09-14 | XR_ITS ---
EXAMINATION: XR CHEST CLINICAL INFORMATION: Chest pain COMPARISON: Chest x-ray 05/25/2022 TECHNIQUE: 2 views of the chest were obtained. FINDINGS: No significant abnormality is noted involving the heart, lungs, mediastinum, bony thorax or soft tissues. XR/XR chest 2V IMPRESSION: Unremarkable examination.
[2022-09-14 14:52] VITALS: BP 119/73; BP 130/80; PULSE 66; PULSE 80; RESP 18; TEMP 36.7; O2SAT 95; O2SAT 99; BMI 25.1
--- NOTE | 2022-09-14 14:59 | ED_ITS ---
HPI - General Adult General Chief complaint: General Medical Stated complaint: VALENCIA PER EMS W/LANGUAGE BARRIER/SSO Time Seen by Provider: 09/14/22 14:59 Source: patient, EMS and spanish medical interpreter Mode of arrival: EMS Limitations: language barrier History of Present Illness HPI narrative: Patient is a 67 year old assigned male at with a history of HTN presenting to the emergency department today with a headache and concern his blood pressure is elevated. Patient states that he was seen at the clinic today for a headache and there was some concern from them that his blood pressure was high. Patient denies any dizziness, lightheadedness, abdominal pain, nausea, vomiting, fever, chills, blurry vision, double vision, loss of vision, chest pain, difficulty breathing, shortness of breath, back pain, night sweats, pain with urination, increased urinary frequency, increased urinary urgency, blood in his urine or stool, syncope or a near syncopal episode, recent trauma or falls, bowel incontinence, bladder incontinence, bowel retention, bladder retention, or any other complaints at this time. Location: head Severity: mild Severity scale (1-10): 2 Relieving factors: none Exacerbating factors: none Associated symptoms: denies other symptoms Treatments prior to arrival: none Related Data Home Medications Medication Instructions Recorded Confirmed atorvastatin 10 mg tablet 10 mg PO BEDTIME 08/06/20 07/28/22 buspirone 30 mg tablet 30 mg PO BID 08/06/20 07/28/22 cholecalciferol (vitamin D3) 25 25 mcg PO QAM 08/06/20 07/28/22 mcg (1,000 unit) tablet fluticasone propionate 50 1 spray intranasal DAILY 08/06/20 07/28/22 mcg/actuation nasal spray,suspension folic acid 1 mg tablet 1 mg PO QAM 08/06/20 07/28/22 lidocaine 5 % topical cream 1 applic topical DAILY 08/06/20 07/28/22 loratadine 10 mg tablet 10 mg PO DAILY 08/06/20 07/28/22 mirtazapine 45 mg tablet 45 mg PO BEDTIME 08/06/20 07/28/22 phenytoin sodium extended 100 mg 300 mg PO QAM 08/06/20 07/28/22 capsule thiamine HCl (vitamin B1) 100 mg 100 mg PO QAM 08/06/20 07/28/22 tablet warfarin 4 mg tablet 4 mg PO 5XW 10/31/20 07/28/22 docusate sodium 100 mg capsule 100 mg PO BID 11/13/20 07/28/22 ergocalciferol (vitamin D2) 1,250 1,250 mcg PO DAILY 11/13/20 07/28/22 mcg (50,000 unit) capsule ketoconazole 2 % topical cream 2 appl topical Q OTHER DAY PRN Pain 11/13/20 07/28/22 naltrexone 50 mg tablet 50 mg PO DAILY 11/13/20 07/28/22 lisinopril 10 mg tablet 10 mg PO DAILY 07/28/22 07/28/22 Previous Rx's Medication Instructions Recorded omeprazole 20 mg capsule,delayed 20 mg PO DAILY gerd #30 caps 08/08/20 release warfarin 3 mg tablet 3 mg PO DAILY #90 tabs 10/31/20 acetaminophen 325 mg capsule 650 mg PO Q4H PRN fever or pain 10/18/21 (Tylenol) #20 caps benzonatate 100 mg capsule 100 mg PO TID PRN cough #30 caps 05/25/22 Allergies Allergy/AdvReac Type Severity Reaction Status Date / Time ibuprofen [From Motrin] Allergy Intermediate UNKNOWN Verified 07/28/22 09:25 acetaminophen [From Percocet] Allergy Unknown Verified 07/28/22 09:25 oxycodone Allergy Unknown Verified 07/28/22 09:25 Review of Systems Constitutional: Constitutional: Reports no additional constitutional complaints, Denies chills, Denies fever(s), Reports headache(s) and Denies night sweats Eyes: Eyes: Reports no additional eye complaints, Denies blurry vision, Denies change in vision, Denies diplopia, Denies eye discharge, Denies loss of vision and Denies eye pain ENT: Denies dizziness and Reports headache(s) Cardiovascular: Cardiovascular: Reports no additional cardiovascular complaints, Denies chest pain, Denies lightheadedness, Denies Loss of Consciousness and Denies dyspnea Respiratory: Respiratory: Reports no additional respiratory complaints and Denies dyspnea Gastrointestinal: Gastrointestinal: Reports no additional gastrointestinal complaints, Denies abdominal pain, Denies melena, Denies hematochezia, Denies change in bowel habits and Denies change in stool character Genitourinary: Genitourinary: Reports no additional male genitourinary complaints, Denies hematuria, Denies oliguria, Denies difficulty urinating, Denies dysuria, Denies urinary frequency, Denies urinary hesitancy, Denies urinary incontinence and Denies urinary urgency Musculoskeletal: Musculoskeletal: Reports no additional musculoskeletal complaints, Denies numbness and Denies tingling Neurologic: Denies dizziness, Reports headache(s), Denies loss of vision, Denies numbness and Denies tingling Psychiatric: Psychiatric: Reports no additional psychiatric complaints Endocrine: Endocrine: Reports no additional endocrine complaints Hematologic/Lymphatic: Hematologic/Lymphatic: Reports no additional hematologic/lymphatic complaints Allergic/Immunologic: Allergic/Immunologic: Reports no additional allergic/immunologic complaints PMFSH Past Medical History Attestation statement: The following information was validated with the patient. Source: old records reviewed Medical History Alcohol abuse Aortic aneurysm Ascending aortic aneurysm Chronic anticoagulation CKD (chronic kidney disease) Colon cancer screening Depression DVT (deep venous thrombosis) GERD (gastroesophageal reflux disease) Hemorrhoid Hyperhomocysteinemia Mood disorder Mood disorder due to a general medical condition Peripheral vascular disease Seizure Surgical History Hx of colonoscopy Hx of hernia repair Family History Family History Paternal Grandmother Cancer Maternal Grandfather Cancer Paternal Aunt Cancer Social History Social History Household Members: None Housing: Apartment Are you a primary patient care secretary to a significant other at home: No Do you presently have visiting nurse or other home services: No Alcohol intake: current Alcohol intake frequency: a few times a month Alcohol type: beer Patient Tobacco Use Status: Never used Tobacco Advance Directives: Yes Advance Directives on File: Yes Advance Directives Date on File: 10/01/20 service: No Current occupational status: disabled Physical Exam ED Vital Signs: Vital Signs - 24 hr 09/14/22 14:52 09/14/22 16:28 Temperature 98.1 F 98.2 F Pulse Rate 66 61 Respiratory Rate 18 16 Blood Pressure 119/73 113/72 Pulse Oximetry 95 97 Oxygen Delivery Method Room Air Room Air BMI result Body Mass Index 25.1 Const General: cooperative, no acute distress, alert and awake Nutritional Appearance: well nourished Orientation/consciousness: patient oriented x3 Limitations: no limitations HENMT Head: Yes normal to inspection and Yes atraumatic Ears: hearing grossly normal bilaterally and external ears normal General nose exam: Normal external nose present, no nasal discharge noted and no epistaxis Face and sinus: Yes normal facial exam, No abrasion and No laceration Mouth: Normal oral and palatal mucosa present, no drooling and no muffled voice Eyes General: appearance normal, both eyes and all related structures Periorbital: periorbital findings normal Eyelids: Yes eyelids normal Conjunctivae: conjunctivae normal Pupils: Equal, round and reactive pupils present EOM: EOMs intact bilaterally Neck Neck: Yes normal visual inspection, Yes full ROM and Yes no lymphadenopathy Chest Chest palpation & inspection: normal inspection of the chest Resp Effort & Inspection: normal respiratory effort and able to speak in complete sentences Auscultation: clear to auscultation bilaterally Cardio Rate: regular rate Rhythm: regular rhythm GI Inspection: Yes normal to inspection Neuro General: patient oriented x3 and moves all extremities Cranial nerves: Yes Equal, round and reactive pupils present Cognition (Neuro): normal cognition Motor exam (neuro): 5/5 motor strength present throughout Sensory Exam: Normal double simultaneous stimulation for sensation Coordination: [id number] test normal Extrem General: Yes normal to inspection, Yes full ROM and Yes capillary refill normal Psych Appearance: grossly normal Mental Status: mental status grossly normal Affect: normal affect Attitude: cooperative Thought process: Normal thought process present Thought content: Normal thought content present Insight: Good insight present (Psych) Medications Administered Discontinued Medications Generic Name Dose Route Start Last Admin Trade Name Freq PRN Reason Stop Dose Admin Sodium Chloride 1,000 mls @ 999 mls/hr 09/14/22 16:15 09/14/22 16:53 Ns IV 09/14/22 17:15 999 mls/hr .Q1H1M ARNALDO Administration Medical Decision Making Medical Decision Making MDM Narrative: Patient is a 67 year old assigned male at with a history of HTN presenting to the emergency department today with a headache. Patient's physical exam was unremarkable. Patient's blood work showed a slightly elevated CR of 1.53. Patient's EKG was unremarkable. Patient's chest x-ray showed no acute process. Patient was normo-tensive throughout his time in the department. Patient was given 1 liter of NS. I explained my physical exam findings as well as all test results to the patient. I answered all questions asked by the patient. I stressed the importance of the patient taking his medication as prescribed. I stressed the importance of the patient following up with his primary care provider. I stressed the importance of the patient returning to the emergency department immediately if his symptoms were to worsen or if he were to develop any dizziness, shortness of breath, difficulty breathing, chest pain, blurry vision, loss of vision, nausea, vomiting, abdominal pain, fever, chills, back pain, or any other complaints. Patient verbalized agreement and understanding with this treatment plan and discharge. Differential Diagnoses: Differential diagnosis Differential Diagnosis: The differential diagnosis associated with the patient?s presentation includes: headache Lab Attestation: I reviewed the patient's lab results. Independent interpretation of EKG, rhythm strip, radiology study: Independent interp EKG,rhythm strip, radiology study (I did not personally interpret this EKG) Vent. Rate: 062 BPM ? ? Atrial Rate: 062 BPM P-R Int: 146 ms? QRS Dur: 086 ms QT Int: 418 ms ? ? ? P-R-T Axes: 050 040 061 degrees QTc Int: 424 ms ? Normal sinus rhythm Normal ECG When compared with ECG of 25-MAY-2022 15:36, Vent. rate has decreased BY? 34 BPM Borderline criteria for Inferior infarct are no longer Present T wave inversion no longer evident in Inferior leads DD/ 1518 Discussion of test interpretation with radiology: Discussion of test interpretation with radiology (This interpretation was not discussed with the radiologist but this is their interpretation per their report) EXAMINATION: XR CHEST CLINICAL INFORMATION: Chest pain COMPARISON: Chest x-ray 05/25/2022 TECHNIQUE: 2 views of the chest were obtained. FINDINGS: No significant abnormality is noted involving the heart, lungs, mediastinum, bony thorax or soft tissues. XR/XR chest 2V IMPRESSION: Unremarkable examination. Dictated By: Srinivas García MD Signed By: Electronically signed by Srinivas García MD 09/14/22 4152 Discharge Plan Discharge Clinical Impression: Headache Patient Disposition: Home, Self-Care Instructions: General Headache (ED) Additional Instructions: Follow up with your primary care provider. Return to the emergency department immediately if your symptoms worsen or if you develop any dizziness, shortness of breath, difficulty breathing, chest pain, blurry vision, loss of vision, nausea, vomiting, abdominal pain, fever, chills, back pain, or any other complaints. Brendan un seguimiento con greer proveedor de atenci?n primaria. Regrese al departamento de emergencias de inmediato si raimundo s?ntomas empeoran o si presenta mareos, falta de aire, dificultad para respirar, dolor de pecho, visi?n borrosa, p?rdida de la visi?n, n?useas, v?mitos, dolor abdominal, fiebre, escalofr?os, dolor de espalda o cualquier otras quejas. Prescriptions: No Action atorvastatin 10 mg tablet 10 mg PO BEDTIME lidocaine 5 % cream 1 applic topical DAILY thiamine HCl (vitamin B1) 100 mg tablet 100 mg PO QAM phenytoin sodium extended 100 mg capsule 300 mg PO QAM buspirone 30 mg tablet 30 mg PO BID mirtazapine 45 mg tablet 45 mg PO BEDTIME folic acid 1 mg tablet 1 mg PO QAM fluticasone propionate 50 mcg/actuation spray,suspension 1 spray intranasal DAILY loratadine 10 mg tablet 10 mg PO DAILY cholecalciferol (vitamin D3) 25 mcg (1,000 unit) tablet 25 mcg PO QAM omeprazole 20 mg capsule,delayed release(DR/EC) 20 mg PO DAILY Qty: 30 0RF acetaminophen [Tylenol] 325 mg capsule 650 mg PO Q4H PRN (Reason: fever or pain) Qty: 20 0RF benzonatate 100 mg capsule 100 mg PO TID PRN (Reason: cough) Qty: 30 0RF warfarin 3 mg tablet 3 mg PO DAILY Qty: 90 0RF Protocol: Dose Management Condition: Tuesday (Week One) Dose/Route: 4 mg Instruction: 1 x 4 mg tablet Condition: Tuesday Dose/Route: 4 mg Instruction: 1 x 4 mg tablet Condition: Tuesday Dose/Route: 3 mg Instruction: 1 x 3 mg tablet Condition: Tuesday Dose/Route: 4 mg Instruction: 1 x 4 mg tablet Condition: Dose/Route: 4 mg Instruction: 1 x 4 mg tablet Condition: Tuesday Dose/Route: 4 mg Instruction: 1 x 4 mg tablet Condition: Tuesday Dose/Route: 4 mg Instruction: 1 x 4 mg tablet Condition: Tuesday ( Two) Dose/Route: 4 mg Instruction: 1 x 4 mg tablet Condition: Tuesday Dose/Route: 4 mg Instruction: 1 x 4 mg tablet Condition: Tuesday Dose/Route: 3 mg Instruction: 1 x 3 mg tablet Condition: Tuesday Dose/Route: 4 mg Instruction: 1 x 4 mg tablet Condition: Dose/Route: 4 mg Instruction: 1 x 4 mg tablet Condition: Tuesday Dose/Route: 4 mg Instruction: 1 x 4 mg tablet Condition: Tuesday Dose/Route: 4 mg Instruction: 1 x 4 mg tablet Protocol Text: Adjustment Start Date: 07/02/21 INR Value: 1.9 INR Date: 07/02/21 Recheck Date: 07/16/21 warfarin 4 mg tablet 4 mg PO 5XW Protocol: Dose Management Condition: Tuesday (Week One) Dose/Route: 4 mg Instruction: 1 x 4 mg tablet Condition: Tuesday Dose/Route: 4 mg Instruction: 1 x 4 mg tablet Condition: Tuesday Dose/Route: 3 mg Instruction: 1 x 3 mg tablet Condition: Tuesday Dose/Route: 4 mg Instruction: 1 x 4 mg tablet Condition: Dose/Route: 4 mg Instruction: 1 x 4 mg tablet Condition: Tuesday Dose/Route: 4 mg Instruction: 1 x 4 mg tablet Condition: Tuesday Dose/Route: 4 mg Instruction: 1 x 4 mg tablet Condition: Tuesday ( Two) Dose/Route: 4 mg Instruction: 1 x 4 mg tablet Condition: Tuesday Dose/Route: 4 mg Instruction: 1 x 4 mg tablet Condition: Tuesday Dose/Route: 3 mg Instruction: 1 x 3 mg tablet Condition: Tuesday Dose/Route: 4 mg Instruction: 1 x 4 mg tablet Condition: Dose/Route: 4 mg Instruction: 1 x 4 mg tablet Condition: Tuesday Dose/Route: 4 mg Instruction: 1 x 4 mg tablet Condition: Tuesday Dose/Route: 4 mg Instruction: 1 x 4 mg tablet Protocol Text: Adjustment Start Date: 07/02/21 INR Value: 1.9 INR Date: 07/02/21 Recheck Date: 07/16/21 ketoconazole 2 % cream 2 appl topical Q OTHER DAY PRN (Reason: Pain) docusate sodium 100 mg capsule 100 mg PO BID naltrexone 50 mg tablet 50 mg PO DAILY ergocalciferol (vitamin D2) 1,250 mcg (50,000 unit) capsule 1,250 mcg PO DAILY lisinopril 10 mg tablet 10 mg PO DAILY Referrals: Veronica Gallardo MD [Primary Care Provider] - Print Language: Bulgarian
--- NOTE | 2022-09-14 15:06 | ECG_ITS ---
Test Reason : CHEST PAIN Blood Pressure : / mmHG Vent. Rate : 062 BPM Atrial Rate : 062 BPM P-R Int : 146 ms QRS Dur : 086 ms QT Int : 418 ms P-R-T Axes : 050 040 061 degrees QTc Int : 424 ms Normal sinus rhythm Normal ECG When compared with ECG of 25-MAY-2022 15:36, Vent. rate has decreased BY 34 BPM Borderline criteria for Inferior infarct are no longer Present T wave inversion no longer evident in Inferior leads Referred By: Emelyn Jansen Electronically Signed By:MARSHALL TATE MD
[2022-09-14 15:43] LABS: MANUAL DIFF FLAG NO
[2022-09-14 15:53] LABS: Basophils Percent Auto 0.4 % (0-2); Eosinophils Absolute Auto 0.2 X10*3/uL (0.0-0.4); Eosinophils Percent Auto 4.7 % (0-4); Hematocrit 45.3 % (42.0-52.0); Hemoglobin 15.1 g/dl (14.0-18.0); Imm Gran Abs Auto 0.01 X10*3/uL (0.00-0.03); Imm Gran Pct Auto 0.2 % (0.0-0.4); Lymphocytes Absolute Auto 0.7 X10*3/uL (1.2-4.9); Lymphocytes Percent Auto 15.5 % (20-40); Mean Corpuscular HGB Conc 33.3 g/dl (31.0-36.0); Mean Corpuscular Hemoglobin 33.2 pg (27.0-33.0); Mean Corpuscular Volume 99.6 fL (80.0-98.0); Monocytes Absolute Auto 0.3 X10*3/uL (0.1-1.2); Monocytes Percent Auto 6.6 % (2-11); Neutrophils Absolute Auto 3.4 x10*3/uL (2.0-8.3); Neutrophils Percent Auto 72.6 % (45-73); Platelet Count 117 X10*3/uL (160-400); Red Blood Count 4.55 X10*6/uL (4.60-5.80); Red Cell Distribution Width 12.4 % (11.0-16.0); White Blood Count 4.7 X10*3/uL (4.8-10.8)
[2022-09-14 16:06] LABS: Alanine Aminotransferase 27 U/L (0-40); Albumin Level 3.8 g/dL (3.5-5.0); Alkaline Phosphatase 60 U/L (39-117); Anion Gap 9 (12-20); Aspartate Amino Transferase 16 U/L (5-37); Bilirubin Total 0.2 mg/dL (0.0-1.0); Blood Urea Nitrogen 35 mg/dL (9-16); Calcium 9.3 mg/dL (8.4-10.2); Carbon Dioxide 27 mmol/L (22-29); Chloride 109 mmol/L (96-108); Creatinine Clr Calc Pharmacy 45.5; Estimated Glomerular Filt Rate 45; Glucose Random 141 mg/dL (60-115); Potassium 4.8 mmol/L (3.3-5.1); Sodium 140 mmol/L (135-145); Total Protein 6.6 g/dL (6.5-8.0)
[2022-09-14 16:14] LABS: Troponin-I High Sensitivity 7.4 ng/L (<3.5-35.0)
[2022-09-14 16:24] LABS: Influenza A PCR NEGATIVE (Negative); Influenza B PCR NEGATIVE (Negative); Resp Syncy Virus RNA Qual PCR NEGATIVE (Negative); SARS COV2 PCR INHOUSE NEGATIVE (Negative)
[2022-09-14 16:28] VITALS: BP 113/72; PULSE 61; RESP 16; TEMP 36.8; O2SAT 97
[2022-09-14] MEDS: 0.9 % Sodium Chloride 1,000 ML 999 ML IV (16:53)
== END 2022-09-14 17:44 | disposition home or self-care (01) ==
PROVIDERS: Physician Assistant Medical; Emergency Provider Emergency Medicine; PCP Family Medicine
DX: R51.9 Headache, unspecified (principal); R07.89 Other chest pain; Z20.822 Contact with and (suspected) exposure to COVID-19; Z79.899 Other long term (current) drug therapy
CPT/HCPCS: 0241U; 36415; 71046; 80053; 83735; 84484; 85025; 93005; 99283; 99284

== ENCOUNTER 2022-09-16 16:12 | Outpatient (REF) | payer OTHER, SELFPAY ==
--- NOTE | ~2022-09-16 | US_ITS ---
EXAMINATION: US VENOUS ULTRASOUND WITH DOPPLER LOWER EXTREMITY, BILATERAL CLINICAL INFORMATION: Pain COMPARISON: None TECHNIQUE: Ultrasound of the deep veins is performed from the hip to the calf with compression sonography and color and pulse Doppler assessment. Spectral analysis with color-flow imaging is performed. FINDINGS: RIGHT: There is normal venous compression and respiratory variation and augmented flow. The visualized common femoral vein, superficial femoral vein, profunda femoral vein, popliteal vein, and the trifurcation region shows no evidence of deep venous thrombosis. There is no significant popliteal fossa cyst. LEFT: There is nonocclusive thrombus involving the common femoral vein, proximal and distal femoral vein. Popliteal, posterior tibial, and peroneal veins appear patent. US/US venous duplex LE BI IMPRESSION: Nonocclusive thrombus involving the left common femoral vein, proximal and distal femoral vein. Findings were discussed by the echocardiography technologist with Dr. Aram Burgos at 1708 inpatient was sent to the emergency department.
== END 2022-09-16 16:13 | disposition home or self-care (01) ==
LOC: HO.US 16:12
PROVIDERS: PCP Family Medicine; Visit Provider Emergency Medicine
DX: M79.662 Pain in left lower leg (principal); M79.661 Pain in right lower leg
CPT/HCPCS: 93970

== ENCOUNTER 2022-09-16 17:13 | Emergency (ER) | payer OTHER, SELFPAY ==
[2022-09-16 18:36] VITALS: BP 147/96; PULSE 70; RESP 20; TEMP 36; O2SAT 99; BMI 24.5
--- NOTE | 2022-09-16 19:06 | ED.GENADULT ---
HPI - General Adult General Chief complaint: General Medical Stated complaint: DVT in leg sent by Ultrasound Time Seen by Provider: 09/16/22 20:39 Source: patient and human resources leader Mode of arrival: ambulatory Limitations: language barrier History of Present Illness HPI narrative: 67 year-old male with a history of DVT/PE on Coumadin, CKD, aortic aneurysm, alcohol abuse, hemorrhoids, mood disorder, PVD, seizures, depression here from ultrasound department with concern for +DVT seen on US. No SOB, CP. Patient reports some painful veins on his lower legs over the last few weeks but denies any swelling of the legs, pain in the calves, redness or warmth. Patient reports he has been compliant with his Coumadin and has not missed any dose. He reports a history of blood clot in the left thigh but unsure where he had the ultrasound or when Related Data Allergies Allergy/AdvReac Type Severity Reaction Status Date / Time Unable to Assess Allergy Verified 09/16/22 19:27 Review of Systems Review of Systems: Yes all other systems are reviewed and are negative Constitutional: Constitutional: Reports no additional constitutional complaints, Denies body ache(s), Denies chills, Denies fever(s), Denies headache(s) and Denies weakness Eyes: Eyes: Reports no additional eye complaints and Denies change in vision ENT: Reports system reviewed and no additional complaints, except as documented, Denies dizziness, Denies headache(s), Denies nasal congestion, Denies nasal discharge and Denies neck pain Cardiovascular: Cardiovascular: Reports no additional cardiovascular complaints, Denies chest pain, Denies leg edema and Denies dyspnea Respiratory: Respiratory: Reports no additional respiratory complaints, Denies cough and Denies dyspnea Gastrointestinal: Gastrointestinal: Reports no additional gastrointestinal complaints, Denies abdominal pain, Denies diarrhea, Denies nausea and Denies vomiting Genitourinary: Genitourinary: Denies urinary incontinence Musculoskeletal: Musculoskeletal: Reports no additional musculoskeletal complaints, Denies back pain, Denies arthralgias, Denies joint swelling, Denies neck pain, Denies numbness and Denies tingling Integumentary/Breasts: Skin/Breast: Reports system reviewed and no additional complaints, except as docu and Denies rash Neurologic: Reports system reviewed and no additional complaints, except as documented, Denies dizziness, Denies headache(s), Denies numbness, Denies tingling and Denies weakness [facility] Past Medical History Attestation statement: The following information was validated with the patient. Source: old records reviewed and nursing notes reviewed Social History Social History Advance Directives: No Advance Directives Information Provided: Yes Physical Exam ED Vital Signs: Vital Signs - 24 hr 09/16/22 18:36 Temperature 96.8 F Pulse Rate 70 Respiratory Rate 20 Blood Pressure 147/96 H Pulse Oximetry 99 Oxygen Delivery Method Room Air BMI result Body Mass Index 24.5 Const General: cooperative, healthy appearing and no acute distress Orientation/consciousness: patient oriented x3 Limitations: no limitations HENMT Head: Yes normal to inspection Ears: hearing grossly normal bilaterally Eyes General: appearance normal, both eyes and all related structures Pupils: Equal, round and reactive pupils present Neck Neck: Yes normal visual inspection Chest Chest palpation & inspection: normal inspection of the chest Resp Effort & Inspection: normal respiratory effort Auscultation: clear to auscultation bilaterally Cardio Rate: regular rate Rhythm: regular rhythm Peripheral pulses: Peripheral pulses 2+ throughout GI Inspection: Yes normal to inspection Palpation (GI): Soft to palpation and nontender General: Yes no CVA tenderness Back/Spine/Pelvis Back: no CVA tenderness Thoracic/Lumbar Spine: thoracic and lumbar spine normal to inspection Skin General skin exam: no rashes or lesions noted Neuro General: patient oriented x3 and moves all extremities Cranial nerves: Yes Equal, round and reactive pupils present Cognition (Neuro): normal cognition Gait exam (Neuro): Normal gait present Motor exam (neuro): 5/5 motor strength present throughout Sensory Exam: Normal double simultaneous stimulation for sensation Extrem Other: There are some superficial varicose veins noted over bilateral lower legs. There is no warmth, redness, swelling or tenderness on exam. DP and PT pulses noted bilateral General: Yes full ROM, Yes no pedal edema and Yes no calf tenderness Course Course Course Narrative: Course Narrative: This is a rapid medical exam.? Deferred additional HPI, review of systems and PE to primary provider.? 67-year-old male with a history of DVT/PE on Coumadin, CKD, aortic aneurysm, alcohol abuse, hemorrhoids, mood disorder, PVD, seizures, depression here with complaints of abnormal ultrasound.? Per patient he has been having some painful superficial veins the left lower leg and so he had an ultrasound outpatient today.? He was brought in from ultrasound for concern for positive DVT study.? Patient tells me that he has had a DVT in the femoral vein before on the left side and this is why he is on coumadin.? He tells me he has been taking the Coumadin.? He denies any missed doses.? He denies any swelling to the leg, redness to the leg.? No shortness of breath or chest pain. On exam patient has some superficial varicose that he tells me are painful.? There is no obvious swelling, redness or calf tenderness. Reviewed ultrasound which was done outpatient which showed Nonocclusive thrombus involving the left common femoral vein, proximal and distal femoral vein. Therefore will check patient INR.? Matt not sure that he needs additional treatment as patient tells me this is where he has had a previous DVT. VSS Reevaluation(s) Reevaluation #1: Labs show chronic kidney disease at baseline. INR 2.7. Patient reports history of DVT on the same affected side. Patient unsure when his last ultrasound or where was. Not available here for review. As patient has a therapeutic INR with a history of DVT on the same side I believe that he can continue his Coumadin and follow up outpatient with his primary care doctor. He does have some painful varicose veins noted to both legs. He can follow-up outpatient with Dr. Upton from vascular for further treatment for these as desired. Reviewed worrisome signs and symptoms of when to return to the emergency room. Comfortable plan for discharge home. Medical Decision Making Medical Decision Making MDM Narrative: DVT, cellulitis, PVD, superficial phlebitis Discharge Plan Discharge Clinical Impression: DVT (deep venous thrombosis) Patient Disposition: Home, Self-Care Instructions: Deep Vein Thrombosis (ED) Additional Instructions: Contin?e con greer coumadin. Greer ultrasonido muestra un co?gulo de pancho en greer pier[place] izquier[place] y debe continuar con raimundo medicamentos. Por favor, abigail un seguimiento con el m?dico vascular Dr. Upton. Referrals: Wayne Upton MD [Physician] - 1 week Interventions: ED Discharge Assessment Last Done: 09/16/22 20:46 Discharge Date/Time: 09/16/22 20:46 Print Language: Citizen Of [place]
[2022-09-16 20:01] LABS: MANUAL DIFF FLAG NO
[2022-09-16 20:02] LABS: Basophils Percent Auto 0.4 % (0-2); Imm Gran Abs Auto 0.01 X10*3/uL (0.00-0.03); Imm Gran Pct Auto 0.2 % (0.0-0.4); PLT CLUMP 1; SCAN SMEAR FLAG 1
[2022-09-16 20:04] LABS: Eosinophils Absolute Auto 0.3 X10*3/uL (0.0-0.4); Eosinophils Percent Auto 5.2 % (0-4); Hematocrit 47.5 % (42.0-52.0); Lymphocytes Absolute Auto 1.3 X10*3/uL (1.2-4.9); Lymphocytes Percent Auto 23.1 % (20-40); Mean Corpuscular HGB Conc 33.7 g/dl (31.0-36.0); Mean Corpuscular Hemoglobin 33.5 pg (27.0-33.0); Mean Corpuscular Volume 99.4 fL (80.0-98.0); Mean Platelet Volume 10.1 fL (9.4-12.4); Monocytes Absolute Auto 0.5 X10*3/uL (0.1-1.2); Monocytes Percent Auto 9.6 % (2-11); Neutrophils Absolute Auto 3.3 x10*3/uL (2.0-8.3); Neutrophils Percent Auto 61.5 % (45-73); Red Blood Count 4.78 X10*6/uL (4.60-5.80); Red Cell Distribution Width 12.4 % (11.0-16.0)
[2022-09-16 20:06] LABS: Platelet Count 124 X10*3/uL (160-400); White Blood Count 5.4 X10*3/uL (4.8-10.8)
[2022-09-16 20:09] LABS: INTERNATIONAL NORM RATIO 2.7 (0.9-1.1); Prothrombin Time 32.3 SEC (10.0-13.1)
[2022-09-16 20:31] LABS: Anion Gap 11 (12-20); Blood Urea Nitrogen 30 mg/dL (9-16); Calcium 9.6 mg/dL (8.4-10.2); Carbon Dioxide 28 mmol/L (22-29); Chloride 106 mmol/L (96-108); Creatinine Clr Calc Pharmacy 42.1; Estimated Glomerular Filt Rate 43; Glucose Random 99 mg/dL (60-115); Potassium 5.1 mmol/L (3.3-5.1); Sodium 140 mmol/L (135-145)
== END 2022-09-16 20:46 | disposition home or self-care (01) ==
PROVIDERS: Nurse Practitioner Family; Emergency Provider Emergency Medicine Emergency Medical Services
DX: I82.412 Acute embolism and thrombosis of left femoral vein (principal); Z79.899 Other long term (current) drug therapy
CPT/HCPCS: 36415; 80048; 85025; 85610; 99282; 99283

== ENCOUNTER 2022-09-21 09:38 | Outpatient (REF) | payer OTHER, SELFPAY ==
--- NOTE | ~2022-09-21 | XR_ITS ---
EXAMINATION: XR CHEST CLINICAL INFORMATION: Osteochondritis COMPARISON: Previous chest x-ray most recent 09/14/2022 TECHNIQUE: 2 views of the chest were obtained. FINDINGS: The cardiac and mediastinal contours are stable. The lungs are clear. There is no pleural effusion or pneumothorax. There is mild curvature of the proximal cervical spine to the right and degenerative changes. XR/XR chest 2V IMPRESSION: No evidence for acute disease in the chest.
== END 2022-09-21 09:39 | disposition home or self-care (01) ==
LOC: HO.XRAY 09:38
PROVIDERS: Visit Provider Student in an Organized Health Care Education/Training Program
DX: R07.82 Intercostal pain (principal)
CPT/HCPCS: 71046

== ENCOUNTER → 2022-10-19 13:48 | Outpatient (BNVA) | payer OTHER, SELFPAY | PROVIDERS: PCP Family Medicine; Referring Provider Family Medicine; Visit Provider Nurse Practitioner Family | DX: I35.0 Nonrheumatic aortic (valve) stenosis (principal); I71.21 Aneurysm of the ascending aorta, without rupture; I10 Essential (primary) hypertension; E78.5 Hyperlipidemia, unspecified; Z79.899 Other long term (current) drug therapy | CPT/HCPCS: 99212 ==

== ENCOUNTER 2022-10-21 09:18 | Outpatient (REF) | payer OTHER, SELFPAY ==
[2022-10-21 10:40] LABS: Anion Gap 7 (12-20); Blood Urea Nitrogen 33 mg/dL (9-16); Calcium 9.4 mg/dL (8.4-10.2); Carbon Dioxide 29 mmol/L (22-29); Chloride 105 mmol/L (96-108); Estimated Glomerular Filt Rate 42; Glucose Random 95 mg/dL (60-115); Sodium 136 mmol/L (135-145)
== END 2022-10-21 09:19 | disposition home or self-care (01) ==
LOC: HO.LAB 09:18
PROVIDERS: PCP Family Medicine; Visit Provider Nurse Practitioner Family
DX: I10 Essential (primary) hypertension (principal)
CPT/HCPCS: 36415; 80048

== ENCOUNTER → 2022-11-02 08:47 | Outpatient (BNVA) | payer OTHER, SELFPAY | PROVIDERS: PCP Family Medicine; Referring Provider Family Medicine; Visit Provider Nurse Practitioner Family | DX: Z13.89 Encounter for screening for other disorder (principal) ==

== ENCOUNTER → 2022-11-11 09:33 | Outpatient (BNVA) | payer OTHER, SELFPAY | PROVIDERS: PCP Family Medicine; Visit Provider Nurse Practitioner Family | DX: Z13.89 Encounter for screening for other disorder (principal) ==

== ENCOUNTER 2023-02-07 08:54 | Outpatient (REF) | payer OTHER, SELFPAY | END 2023-02-07 08:55 | disposition home or self-care (01) | LOC: HO.US 08:54 | PROVIDERS: PCP Family Medicine; Visit Provider Internal Medicine Medical Oncology | DX: Z13.89 Encounter for screening for other disorder (principal) ==

== ENCOUNTER 2023-04-01 11:20 | Emergency (ER) | payer OTHER, SELFPAY ==
[2023-04-01] VITALS (7 sets, daily range): BP systolic 110–192; BP diastolic 78–114; PULSE 85–105; RESP 14–18; TEMP 39.1–39.6; O2SAT 93–98; BMI 24.3
--- NOTE | ~2023-04-01 | XR_ITS ---
EXAMINATION: XR CHEST CLINICAL INFORMATION: Mild chest discomfort COMPARISON: September 21, 2022 and September 14, 2022 TECHNIQUE: AP portable view of the chest was obtained. FINDINGS: No significant abnormality is noted involving the heart, lungs, mediastinum, bony thorax or soft tissues. XR/XR chest 1V IMPRESSION: No acute disease.
--- NOTE | 2023-04-01 12:03 | ECG_ITS ---
Test Reason : chest pain Blood Pressure : / mmHG Vent. Rate : 102 BPM Atrial Rate : 102 BPM P-R Int : 146 ms QRS Dur : 074 ms QT Int : 332 ms P-R-T Axes : 042 025 035 degrees QTc Int : 432 ms Sinus tachycardia Otherwise normal ECG When compared with ECG of 14-SEP-2022 15:18, Vent. rate has increased BY 40 BPM Referred By: Bryan Garland Electronically Signed By:LESA BURGER
--- NOTE | 2023-04-01 12:42 | ED.GENADULT ---
HPI - General Adult General Chief complaint: Headache Stated complaint: Headache, Toothache Time Seen by Provider: 04/01/23 11:22 History of Present Illness HPI narrative: 67-year-old male presents with jaw pain. He also has some nausea vomiting. Pain started over the last 2-3 days. Denies any chest pain or shortness of breath. He has had no fevers or chills. Sometimes he has a headache. The headache is moderate in nature. Not associated with photo or phonophobia. Denies any neck stiffness or fevers. There are no clear relieving or exacerbating features. There has been no prior treatment. Patient describes the pain as aching and sharp in nature. Related Data Home Medications Medication Instructions Recorded Confirmed atorvastatin 10 mg tablet 10 mg PO BEDTIME 08/06/20 01/11/23 buspirone 30 mg tablet 30 mg PO BID 08/06/20 01/11/23 cholecalciferol (vitamin D3) 25 25 mcg PO QAM 08/06/20 01/11/23 mcg (1,000 unit) tablet fluticasone propionate 50 1 spray intranasal DAILY 08/06/20 01/11/23 mcg/actuation nasal spray,suspension folic acid 1 mg tablet 1 mg PO QAM 08/06/20 01/11/23 lidocaine 5 % topical cream 1 applic topical DAILY 08/06/20 01/11/23 loratadine 10 mg tablet 10 mg PO DAILY 08/06/20 01/11/23 mirtazapine 45 mg tablet 45 mg PO BEDTIME 08/06/20 01/11/23 phenytoin sodium extended 100 mg 300 mg PO QAM 08/06/20 01/11/23 capsule thiamine HCl (vitamin B1) 100 mg 100 mg PO QAM 08/06/20 01/11/23 tablet warfarin 4 mg tablet 4 mg PO 5XW 10/31/20 01/11/23 docusate sodium 100 mg capsule 100 mg PO BID 11/13/20 01/11/23 ergocalciferol (vitamin D2) 1,250 1,250 mcg PO DAILY 11/13/20 01/11/23 mcg (50,000 unit) capsule ketoconazole 2 % topical cream 2 appl topical Q OTHER DAY PRN Pain 11/13/20 01/11/23 naltrexone 50 mg tablet 50 mg PO DAILY 11/13/20 01/11/23 hydralazine 25 mg tablet 25 mg PO BID 01/07/23 01/11/23 Previous Rx's Medication Instructions Recorded omeprazole 20 mg capsule,delayed 20 mg PO DAILY gerd #30 caps 08/08/20 release warfarin 3 mg tablet 3 mg PO DAILY #90 tabs 10/31/20 acetaminophen 325 mg capsule 650 mg PO Q4H PRN fever or pain 10/18/21 (Tylenol) #20 caps benzonatate 100 mg capsule 100 mg PO TID PRN cough #30 caps 05/25/22 amlodipine 10 mg tablet 10 mg PO DAILY #30 tabs 11/02/22 Allergies Allergy/AdvReac Type Severity Reaction Status Date / Time ibuprofen [From Motrin] Allergy Intermediate UNKNOWN Verified 04/01/23 11:55 acetaminophen [From Percocet] Allergy Unknown Verified 04/01/23 11:55 oxycodone Allergy Unknown Verified 04/01/23 11:55 Review of Systems Review of Systems: CONSTITUTIONAL: Denies weight loss, fever and chills. HEENT: Denies changes in vision and hearing. Jaw pain RESPIRATORY: Denies SOB and cough. CV: Denies palpitations no CP. GI: Denies abdominal pain, positive nausea, vomiting negative diarrhea. : Denies dysuria and urinary frequency. MSK: Denies myalgia and joint pain. SKIN: Denies rash and pruritus. NEUROLOGICAL: Denies headache and syncope. PSYCHIATRIC: Denies recent changes in mood. Denies anxiety and depression. All other ROS are negative unless in HPI PMFSH Past Medical History Medical History Alcohol abuse Aortic aneurysm Ascending aortic aneurysm Chronic anticoagulation CKD (chronic kidney disease) Colon cancer screening Depression DVT (deep venous thrombosis) GERD (gastroesophageal reflux disease) Hemorrhoid Hyperhomocysteinemia Mood disorder Mood disorder due to a general medical condition Peripheral vascular disease Seizure Surgical History Hx of colonoscopy Hx of hernia repair Family History Family History Paternal Grandmother Cancer Maternal Grandfather Cancer Paternal Aunt Cancer Social History Social History Household Members: None Housing: Apartment Are you a primary pet care associate to a significant other at home: No Do you presently have visiting nurse or other home services: No Alcohol intake: current Alcohol intake frequency: a few times a month Alcohol type: beer Patient Tobacco Use Status: Never used Tobacco Advance Directives: Yes Advance Directives on File: Yes Advance Directives Date on File: 10/01/20 service: No Current occupational status: disabled Physical Exam ED Vital Signs: Vital Signs - 24 hr 04/01/23 11:26 04/01/23 11:41 04/01/23 12:24 Temperature 102.3 F H 103.2 F H Pulse Rate 85 102 H Respiratory Rate 18 Blood Pressure 180/93 H 186/114 H Pulse Oximetry 93 Oxygen Delivery Method Room Air Room Air 04/01/23 12:40 04/01/23 12:54 04/01/23 13:15 Temperature 103.2 F H Pulse Rate 102 H 105 H Respiratory Rate Blood Pressure 157/89 H 152/90 H Pulse Oximetry Oxygen Delivery Method 04/01/23 15:34 Temperature 102.8 F H Pulse Rate 98 Respiratory Rate 14 Blood Pressure 110/78 Pulse Oximetry 93 Oxygen Delivery Method Room Air BMI result Body Mass Index 24.3 GEN: Well developed, no acute distress, alert, oriented HEENT: Normocephalic, atraumatic, normal external ears, nose appears normal, no oropharyngeal edema or exudates Eyes: Normal to appearance Neck: Supple, no lymphadenopathy Respiratory: Talks in complete sentences, no respiratory distress, clear to auscultation bilaterally Cardiovascular: Regular rate and rhythm, no murmurs rubs or gallops Abdomen: Soft, nontender, nondistended, no guarding, no rebound Back: No CVA tenderness Extremities: No clubbing cyanosis or edema Neurologic: No focal neurologic deficits, cranial nerves 2-12 intact, strength is 5/5 bilaterally Skin: No rash Course Reevaluation(s) Reevaluation #1: Patient's blood pressure continues to elevate. He is now with hypertensive urgency. Will order intravenous labetalol to intervene on potentially morbid associated condition. Time: 12:43 Reevaluation #2: Patient is feeling much better. Blood pressure is refer maintained a good normal pressure. He was never given labetalol. His nausea vomiting have since dissipated. He has a mild headache. I will give him Tylenol and he may be discharged with close follow-up. Time: 15:46 Medications Administered Discontinued Medications Generic Name Dose Route Start Last Admin Trade Name Homero PRN Reason Stop Dose Admin Ondansetron HCl 4 mg 04/01/23 12:03 04/01/23 12:56 Ondansetron Hcl 4 Mg/2 Ml Vial IVPUSH 04/01/23 12:04 4 mg ONCE ONE Administration Medical Decision Making Medical Decision Making [facility] Narrative: 67-year-old male presents with jaw pain, headache and significantly elevated blood pressure. He is reportedly taking his medications. Will monitor his blood pressure to determine if patient warrants intervention. In the meantime, patient will need to be treated for his pain and discomfort. Symptoms are inconsistent with acute coronary syndrome. Differential diagnosis includes dental pain, migraine headache, sinus headache, tension headache, hypertensive urgency. Plan will be did do routine laboratory analysis make sure there is no renal dysfunction, hypokalemia. Will check an EKG to make sure there is no evidence of ischemia. She denies any chest pain so I doubt acute coronary syndrome Differential Diagnosis Differential Diagnoses: The differential diagnosis associated with the presentation includes (See above) Lab Data [facility] Lab Attestation statement: I reviewed the patient's lab results. 04/01/23 12:37 04/01/23 12:37 Labs: Lab Results 04/01/23 04/01/23 04/01/23 Range/Units 12:37 12:37 12:37 WBC 7.8 (4.8-10.8) X10*3/uL RBC 5.16 (4.60-5.80) X10*6/uL Hgb 17.3 (14.0-18.0) g/dl Hct 50.6 (42.0-52.0) % MCV 98.1 H (80.0-98.0) fL MCH 33.5 H (27.0-33.0) pg MCHC 34.2 (31.0-36.0) g/dl RDW 12.9 (11.0-16.0) % Plt Count 85 L D (160-400) X10*3/uL MPV 10.5 (9.4-12.4) fL Immature Gran % (Auto) 0.4 (0.0-0.4) % Neut % (Auto) 91.2 H (45-73) % Lymph % (Auto) 3.7 L (20-40) % [place] % (Auto) 3.1 (2-11) % Eos % (Auto) 1.5 (0-4) % Baso % (Auto) 0.1 (0-2) % Lymph # (Auto) 0.3 L (1.2-4.9) X10*3/uL [place] # (Auto) 0.2 (0.1-1.2) X10*3/uL Eos # (Auto) 0.1 (0.0-0.4) X10*3/uL Baso # (Auto) 0.0 (0.0-0.2) X10*3/uL Abs Immat Gran (auto) 0.03 (0.00-0.03) X10*3/uL Absolute Neuts (auto) 7.1 (2.0-8.3) x10*3/uL Absolute Nucleated RBC 0.000 (0.0-0.012) X10*3/uL Nucleated RBC % (auto) 0.0 (0.0-0.2) /100WBC Smear Tech's Comments VERIFIED PT (10.0-13.1) SEC INR (0.9-1.1) APTT (26.0-36.4) SEC Sodium 138 (135-145) mmol/L Potassium 4.6 (3.3-5.1) mmol/L Chloride 105 (96-108) mmol/L Carbon Dioxide 24 (22-29) mmol/L Anion Gap 14 (12-20) BUN 22 H (9-16) mg/dL Creatinine 1.38 (0.5-1.4) mg/dL Estim Creat Clear Calc 50.5 Estimated GFR 51 Random Glucose 100 (60-115) mg/dL Calcium 9.6 (8.4-10.2) mg/dL Total Bilirubin 0.9 (0.0-1.0) mg/dL AST 23 (5-37) U/L ALT 28 (0-40) U/L Alkaline Phosphatase 67 (39-117) U/L Troponin I High Sens 8.2 (<3.5-35.0) ng/L Total Protein 7.1 (6.5-8.0) g/dL Albumin 3.8 (3.5-5.0) g/dL 06/23/23 Range/Units 12:37 WBC (4.8-10.8) X10*3/uL RBC (4.60-5.80) X10*6/uL Hgb (14.0-18.0) g/dl Hct (42.0-52.0) % MCV (80.0-98.0) fL MCH (27.0-33.0) pg MCHC (31.0-36.0) g/dl RDW (11.0-16.0) % Plt Count (160-400) X10*3/uL MPV (9.4-12.4) fL Immature Gran % (Auto) (0.0-0.4) % Neut % (Auto) (45-73) % Lymph % (Auto) (20-40) % [place] % (Auto) (2-11) % Eos % (Auto) (0-4) % Baso % (Auto) (0-2) % Lymph # (Auto) (1.2-4.9) X10*3/uL [place] # (Auto) (0.1-1.2) X10*3/uL Eos # (Auto) (0.0-0.4) X10*3/uL Baso # (Auto) (0.0-0.2) X10*3/uL Abs Immat Gran (auto) (0.00-0.03) X10*3/uL Absolute Neuts (auto) (2.0-8.3) x10*3/uL Absolute Nucleated RBC (0.0-0.012) X10*3/uL Nucleated RBC % (auto) (0.0-0.2) /100WBC Smear Tech's Comments PT 25.0 H (10.0-13.1) SEC INR 2.1 H (0.9-1.1) APTT 33.2 (26.0-36.4) SEC Sodium (135-145) mmol/L Potassium (3.3-5.1) mmol/L Chloride (96-108) mmol/L Carbon Dioxide (22-29) mmol/L Anion Gap (12-20) BUN (9-16) mg/dL Creatinine (0.5-1.4) mg/dL Estim Creat Clear Calc Estimated GFR Random Glucose (60-115) mg/dL Calcium (8.4-10.2) mg/dL Total Bilirubin (0.0-1.0) mg/dL AST (5-37) U/L ALT (0-40) U/L Alkaline Phosphatase (39-117) U/L Troponin I High Sens (<3.5-35.0) ng/L Total Protein (6.5-8.0) g/dL Albumin (3.5-5.0) g/dL Independent Interpretation I performed an independent interpretation of an: EKG (Sinus tachycardia heart rate 102, no acute ST elevations depressions, possible evidence of LVH, normal intervals) and Plain X-Ray (No acute cardiopulmonary disease) Radiology Impression Discussion of test interpretation with radiology: I have reviewed the radiologist's reading. Radiologist Impression: XR/XR chest 1V IMPRESSION: No acute disease. ? Dictated By: Chidi Newman MD Signed By: <Electronically signed by Chidi Newman MD in OV> 04/01/23 1325 Tests considered The following testing was considered but not selected: CT chest Prescription Management I considered prescription management with: Pain Medication Chronic Conditions Patient?s care impacted by: Hypertension Discharge Plan Discharge Clinical Impression: Hypertension, Headache, Jaw pain Patient Disposition: Home, Self-Care Instructions: Acute Headache (ED), Chronic Hypertension (ED), Atypical Facial Pain (ED) Prescriptions: No Action amlodipine 10 mg tablet 10 mg PO DAILY Qty: 30 5RF hydralazine 25 mg tablet 25 mg PO BID Patient Comments: being started by PCP atorvastatin 10 mg tablet 10 mg PO BEDTIME lidocaine 5 % cream 1 applic topical DAILY thiamine HCl (vitamin B1) 100 mg tablet 100 mg PO QAM phenytoin sodium extended 100 mg capsule 300 mg PO QAM buspirone 30 mg tablet 30 mg PO BID mirtazapine 45 mg tablet 45 mg PO BEDTIME folic acid 1 mg tablet 1 mg PO QAM fluticasone propionate 50 mcg/actuation spray,suspension 1 spray intranasal DAILY loratadine 10 mg tablet 10 mg PO DAILY cholecalciferol (vitamin D3) 25 mcg (1,000 unit) tablet 25 mcg PO QAM omeprazole 20 mg capsule,delayed release(DR/EC) 20 mg PO DAILY Qty: 30 0RF acetaminophen [Tylenol] 325 mg capsule 650 mg PO Q4H PRN (Reason: fever or pain) Qty: 20 0RF benzonatate 100 mg capsule 100 mg PO TID PRN (Reason: cough) Qty: 30 0RF warfarin 3 mg tablet 3 mg PO DAILY Qty: 90 0RF Protocol: Dose Management Condition: Tuesday (Week One) Dose/Route: 4 mg Instruction: 1 x 4 mg tablet Condition: Tuesday Dose/Route: 4 mg Instruction: 1 x 4 mg tablet Condition: Tuesday Dose/Route: 3 mg Instruction: 1 x 3 mg tablet Condition: Tuesday Dose/Route: 4 mg Instruction: 1 x 4 mg tablet Condition: Dose/Route: 4 mg Instruction: 1 x 4 mg tablet Condition: Tuesday Dose/Route: 4 mg Instruction: 1 x 4 mg tablet Condition: Tuesday Dose/Route: 4 mg Instruction: 1 x 4 mg tablet Condition: Tuesday () Dose/Route: 4 mg Instruction: 1 x 4 mg tablet Condition: Tuesday Dose/Route: 4 mg Instruction: 1 x 4 mg tablet Condition: Tuesday Dose/Route: 3 mg Instruction: 1 x 3 mg tablet Condition: Tuesday Dose/Route: 4 mg Instruction: 1 x 4 mg tablet Condition: Dose/Route: 4 mg Instruction: 1 x 4 mg tablet Condition: Tuesday Dose/Route: 4 mg Instruction: 1 x 4 mg tablet Condition: Tuesday Dose/Route: 4 mg Instruction: 1 x 4 mg tablet Protocol Text: Adjustment Start Date: 07/02/21 INR Value: 1.9 INR Date: 07/02/21 Recheck Date: 07/16/21 warfarin 4 mg tablet 4 mg PO 5XW Protocol: Dose Management Condition: Tuesday ( One) Dose/Route: 4 mg Instruction: 1 x 4 mg tablet Condition: Tuesday Dose/Route: 4 mg Instruction: 1 x 4 mg tablet Condition: Tuesday Dose/Route: 3 mg Instruction: 1 x 3 mg tablet Condition: Tuesday Dose/Route: 4 mg Instruction: 1 x 4 mg tablet Condition: Dose/Route: 4 mg Instruction: 1 x 4 mg tablet Condition: Tuesday Dose/Route: 4 mg Instruction: 1 x 4 mg tablet Condition: Tuesday Dose/Route: 4 mg Instruction: 1 x 4 mg tablet Condition: Tuesday ( Two) Dose/Route: 4 mg Instruction: 1 x 4 mg tablet Condition: Tuesday Dose/Route: 4 mg Instruction: 1 x 4 mg tablet Condition: Tuesday Dose/Route: 3 mg Instruction: 1 x 3 mg tablet Condition: Tuesday Dose/Route: 4 mg Instruction: 1 x 4 mg tablet Condition: Dose/Route: 4 mg Instruction: 1 x 4 mg tablet Condition: Tuesday Dose/Route: 4 mg Instruction: 1 x 4 mg tablet Condition: Tuesday Dose/Route: 4 mg Instruction: 1 x 4 mg tablet Protocol Text: Adjustment Start Date: 07/02/21 INR Value: 1.9 INR Date: 07/02/21 Recheck Date: 07/16/21 ketoconazole 2 % cream 2 appl topical Q OTHER DAY PRN (Reason: Pain) docusate sodium 100 mg capsule 100 mg PO BID naltrexone 50 mg tablet 50 mg PO DAILY ergocalciferol (vitamin D2) 1,250 mcg (50,000 unit) capsule 1,250 mcg PO DAILY Referrals: Veronica Gallardo MD [Primary Care Provider] - 3 days
[2023-04-01 12:53] LABS: Basophils Percent Auto 0.1 % (0-2); Eosinophils Absolute Auto 0.1 X10*3/uL (0.0-0.4); Eosinophils Percent Auto 1.5 % (0-4); Hematocrit 50.6 % (42.0-52.0); Hemoglobin 17.3 g/dl (14.0-18.0); Imm Gran Abs Auto 0.03 X10*3/uL (0.00-0.03); Imm Gran Pct Auto 0.4 % (0.0-0.4); Lymphocytes Absolute Auto 0.3 X10*3/uL (1.2-4.9); Lymphocytes Percent Auto 3.7 % (20-40); MANUAL DIFF FLAG SCAN; Mean Corpuscular HGB Conc 34.2 g/dl (31.0-36.0); Mean Corpuscular Hemoglobin 33.5 pg (27.0-33.0); Mean Corpuscular Volume 98.1 fL (80.0-98.0); Monocytes Absolute Auto 0.2 X10*3/uL (0.1-1.2); Monocytes Percent Auto 3.1 % (2-11); Neutrophils Absolute Auto 7.1 x10*3/uL (2.0-8.3); Neutrophils Percent Auto 91.2 % (45-73); Red Blood Count 5.16 X10*6/uL (4.60-5.80); Red Cell Distribution Width 12.9 % (11.0-16.0); SCAN SMEAR FLAG 1; White Blood Count 7.8 X10*3/uL (4.8-10.8)
[2023-04-01] MEDS: ondansetron HCL 4 MG/2 ML VIAL IVPUSH (12:56)
[2023-04-01 13:05] LABS: Alanine Aminotransferase 28 U/L (0-40); Albumin Level 3.8 g/dL (3.5-5.0); Alkaline Phosphatase 67 U/L (39-117); Anion Gap 14 (12-20); Aspartate Amino Transferase 23 U/L (5-37); Bilirubin Total 0.9 mg/dL (0.0-1.0); Blood Urea Nitrogen 22 mg/dL (9-16); Calcium 9.6 mg/dL (8.4-10.2); Carbon Dioxide 24 mmol/L (22-29); Chloride 105 mmol/L (96-108); Creatinine Clr Calc Pharmacy 50.5; Estimated Glomerular Filt Rate 51; Glucose Random 100 mg/dL (60-115); Potassium 4.6 mmol/L (3.3-5.1); Sodium 138 mmol/L (135-145); Total Protein 7.1 g/dL (6.5-8.0)
[2023-04-01 13:10] LABS: Mean Platelet Volume 10.5 fL (9.4-12.4); Platelet Count 85 X10*3/uL (160-400); Troponin-I High Sensitivity 8.2 ng/L (<3.5-35.0)
[2023-04-01 13:11] LABS: INTERNATIONAL NORM RATIO 2.1 (0.9-1.1); SLIDE REVIEW VERIFIED
[2023-04-01 13:14] LABS: Partial Thromboplastin Time 33.2 SEC (26.0-36.4)
[2023-04-01] MEDS: Acetaminophen 325 MG TABLET 975 MG PO (16:04)
== END 2023-04-01 16:21 | disposition home or self-care (01) ==
PROVIDERS: Emergency Provider Emergency Medicine; PCP Family Medicine
DX: R51.9 Headache, unspecified (principal); I10 Essential (primary) hypertension; R68.84 Jaw pain; R07.89 Other chest pain; Z79.899 Other long term (current) drug therapy
CPT/HCPCS: 36415; 71045; 80053; 84484; 85025; 85610; 85730; 93005; 96374; 99284; J2405

== ENCOUNTER 2023-05-17 13:54 | Outpatient (AMB) | payer OTHER, SELFPAY ==
--- NOTE | 2023-05-17 13:59 | A.OFFVIS_ITS ---
Intake Intake Visit Reasons: BPH Intake Note: New Patient presents for initial visit for BPH (last psa 3.59) Urology Medications: none Blood Thinner: warfarin PVR: 62ML Sewer Builder Required: Yes Sewer Builder Language: Croatian Accompanied by: Self / Same As Patient Allergies ibuprofen [From Motrin] Allergy (Intermediate, Verified 05/19/23 22:25) UNKNOWN acetaminophen [From Percocet] Allergy (Verified 05/19/23 22:25) Unknown oxycodone Allergy (Verified 05/19/23 22:25) Unknown Medication List - Last Reconciled 05/19/23 by MARCIA Hernandez acetaminophen (Tylenol) 650 mg (2 x 325 mg) PO Q4H PRN amlodipine 10 mg PO DAILY 90 days atorvastatin 10 mg PO BEDTIME benzonatate 100 mg PO TID PRN buspirone 30 mg PO BID cholecalciferol (vitamin D3) 25 mcg PO QAM docusate sodium 100 mg PO BID fluticasone propionate 50 mcg/actuation 1 spray intranasal DAILY folic acid 1 mg PO QAM hydralazine 25 mg PO BID ketoconazole 2% 2 appl topical Q OTHER DAY PRN lidocaine 5% 1 appl topical DAILY loratadine 10 mg PO DAILY mirtazapine 45 mg PO BEDTIME naltrexone 50 mg PO DAILY omeprazole 20 mg PO DAILY phenytoin sodium extended 300 mg PO QAM tamsulosin 0.4 mg PO BEDTIME 30 days thiamine HCl (vitamin B1) 100 mg PO QAM warfarin 4 mg See Protocol PO 5XW warfarin 2 mg See Protocol PO DAILY HPI HPI Comments History of Present Illness Details Chriss is a 67-year-old Croatian-speaking male patient of Dr. Ngo. He has a past medical history of alcohol abuse, aortic aneurysm, chronic anticoagulation, chronic kidney disease, depression, DVT, GERD, hemorrhoids, mood disorder, PVD, and seizures. He presents to the office today as a new patient for ongoing lower urinary tract symptoms. In discussion with the patient today reports to be doing and feeling well. When asked patient reporting weak urinary stream with intermittent episodes of urinary urgency and frequency. He is also reporting penile discharge. When asked he does report to be sexually active. He denies using protection. He discusses having multiple partners every 3 months. He otherwise denies incontinence, nocturia, hematuria, dysuria, foul smelling urine, flank pain, fever, and or chills. In office urinalysis results reviewed with the patient today. PVR 62 mL. MARIA FERNANDA offered however decline. Patient declining physical assessment of area (scrotum, testicles, and or penis). Offered male provider for assessment however patient continues to decline. Discussed at length importance of practicing safe sex. In review of patient's chart it appears last PSA 08/29--3.0 He otherwise offers no issues or concerns at this time. [facility] Medical History Alcohol abuse Aortic aneurysm Ascending aortic aneurysm Chronic anticoagulation CKD (chronic kidney disease) Colon cancer screening Depression DVT (deep venous thrombosis) GERD (gastroesophageal reflux disease) Hemorrhoid Hyperhomocysteinemia Mood disorder Mood disorder due to a general medical condition Peripheral vascular disease Seizure Surgical History Hx of colonoscopy Hx of hernia repair Family History Paternal Grandmother Cancer Maternal Grandfather Cancer Paternal Aunt Cancer Social History Household Members: None Housing: Apartment Are you a primary patient care technician to a significant other at home: No Do you presently have visiting nurse or other home services: No Alcohol intake: current Alcohol intake frequency: a few times a month Alcohol type: beer Patient Tobacco Use Status: Never used Tobacco Advance Directives Date on File: 10/01/20 service: No Current occupational status: disabled Review of Systems Const All systems reviewed & are unremarkable except as noted in HPI and below Reports as per HPI Eyes Reports no additional complaints ENT Reports no additional complaints Card Reports as per HPI Resp Reports no additional complaints GI Reports as per HPI Reports as per HPI Musc Reports no additional complaints Neuro Reports as per HPI Psych Reports as per HPI Endo Reports as per HPI Patrick/Lymph Reports as per HPI Physical Exam Const General: cooperative, comfortable, no acute distress, well developed, alert and awake Orientation/consciousness: patient oriented x3 Limitations: no limitations HEENT Head: Yes normal to inspection, Yes normocephalic and Yes atraumatic Ears: hearing grossly normal bilaterally Eyes General: appearance normal, both eyes and all related structures Neck Neck: Yes normal visual inspection and Yes trachea midline Chest Chest palpation & inspection: normal inspection of the chest Resp Effort & Inspection: normal respiratory effort and able to speak in complete sentences Cardio Rate: regular rate GI Inspection: Yes normal to inspection Rectal Exam - Male: Yes deferred General: Yes no CVA tenderness Back/Spine/Pelvis Back: no CVA tenderness Skin General skin exam: no rashes or lesions noted Neuro General: patient oriented x3 Extrem General: Yes normal to inspection Psych Appearance: grossly normal and well kempt Mental Status: mental status grossly normal Speech and movement: Normal speech and movement present and Clear speech present Affect: normal affect Attitude: cooperative Thought process: Normal thought process present Thought content: Normal thought content present Insight: Fair insight present (Psych) Judgement: Fair judgement present (Psych) Office Procedures Post Void Residual Post Residual Void Post Void Residual (PVR): 62 [id number] Void Residual by ultrasound Results AMB Urinalysis, Automated UA Leukoctes 0 Briana/uL Last Edit by EVA Lindsey on 05/17/23 14:26 UA Nitrite Negative Last Edit by EVA Lindsey on 05/17/23 14:26 UA Urobilinogen 0.2 mg/dL Last Edit by EVA Lindsey on 05/17/23 14:2 6 UA Protein 100 mg/dL Last Edit by EVA Lindsey on 05/17/23 14:26 2+ Diana Felder 05/17/23 14:26 UA pH 6.0 Last Edit by EVA Lindsey on 05/17/23 14:26 UA Blood 10 Daniel/uL Last Edit by EVA Lindsey on 05/17/23 14:26 UA Specific [place] 1.020 Last Edit by EVA Lindsey on 05/17/23 14: 26 UA Ketone Negative Last Edit by EVA Lindsey on 05/17/23 14:26 UA Bilirubin 0 mg/dL Last Edit by EVA Lindsey on 05/17/23 14:26 UA Glucose 0 mg/dL Last Edit by EVA Lindsey on 05/17/23 14:26 Results Reviewed Results Reviewed: Laboratory Last Values Urine pH (Auto) 6.0 05/17/23 14:16 Specific [place] (Auto) 1.020 05/17/23 14:16 Urine Protein (Auto) 100 mg/dL 05/17/23 14:16 Glucose (UA)(Auto) 0 mg/dL 05/17/23 14:16 Urine Ketones (Auto) Negative 05/17/23 14:16 Urine Blood (Auto) 10 Daniel/uL 05/17/23 14:16 Urine Nitrite (Auto) Negative 05/17/23 14:16 Urine Bilirubin (Auto) 0 mg/dL 05/17/23 14:16 Urine Urobilinogen (Auto) 0.2 mg/dL 05/17/23 14:16 Leukocyte Esterase (Auto) 0 Briana/uL 05/17/23 14:16 Assessment & Plan Assessment & Plan (1) Proteinuria: Code(s): R80.9 - Proteinuria, unspecified (2) Penile discharge: Code(s): R36.9 - Urethral discharge, unspecified (3) Weak urinary stream: Code(s): R39.12 - Poor urinary stream (4) Incomplete bladder emptying: Code(s): R33.9 - Retention of urine, unspecified Plan In office urinalysis results reviewed with the patient today; as noted above; noted proteinuria patient denies having test lead application testing; discussed referral to Nephrology patient agreeable. PVR 64 mL. Discussed at length importance of practicing and performing safe sex Will send urine for STI testing Will obtain PSA for further assessment evaluation. Will obtain retroperitoneal ultrasound for further assessment evaluation. Start Flomax as discussed and prescribed. Discussed at length importance of limiting/quitting alcohol consumption for improvement in urinary symptoms as well as for overall health and well-being. Patient deferring MARIA FERNANDA as well as assessment; offered male for provider; however patient continues to decline assessment. Discussed at length potential causes for incomplete bladder emptying as well as affects of incomplete bladder emptying. Discussed near future in office cystoscopy for further assessment evaluation if symptoms persist and/or worsen. Follow-up in 6-8 weeks with imaging and lab to be completed prior; or sooner with any issues, concerns, and or questions. Orders: Orders PSA,Total (Free>4and<10) 05/17/23 N40.0 - Benign prostatic hyperplasia without lower urinary tract symptoms US retroperitoneal comp 05/17/23 R39.12 - Poor urinary stream AMB Urinalysis Automated 05/17/23 Z13.9 - Encounter for screening, unspecified AMB Post Void Residual by ultrasound 05/17/23 N39.8 - Other specified disorders of urinary system Medications: New tamsulosin 0.4 mg PO BEDTIME 30 days 30 caps 1RF N40.1 - Benign prostatic hyperplasia with lower urinary tract symptoms, R35.1 - Nocturia Changed From warfarin 3 mg See Protocol PO DAILY 90 tabs 0RF To warfarin 2 mg See Protocol PO DAILY Patient Instructions: The patient had an opportunity to ask questions regarding the treatment plan. All questions were answered. Physical exam, labs, and imaging were discussed and reviewed in detail. As well as risks, benefits, and discussion of treatment choices. No major barriers to understanding were identified. The patient expressed understanding and agreement with the above treatment plan. The patient was made aware they should contact our office by phone for worsening of their current condition, the appearance of new symptoms, or with any questions or concerns. Compliance is encouraged with any medications and follow up testing that is ordered. It is a privilege to be allowed the opportunity to participate in? your urological care.? Again, if you have any questions or c oncerns If you have any questions or concerns please do not hesitate to contact me. The office is [phone]. This note is constructed using voice recognition software. While every effort has been made to ensure accuracy welcome wagon hostess errors may have been included. Yours sincerely, MARCIA Hernandez Coding Level of Care Code New Pt Level 4 (54515) Diagnoses Proteinuria R80.9 Penile discharge R36.9 Weak urinary stream R39.12 Incomplete bladder emptying R33.9 CPT Codes Post Residual Void - PVR CPT Code: 91632-Cxex Void Residual by ultrasound ([id number])
== END 2023-05-17 14:55 | disposition home or self-care (01) ==
PROVIDERS: PCP Family Medicine; Visit Provider Nurse Practitioner Family
DX: R80.9 Proteinuria, unspecified (principal); R36.9 Urethral discharge, unspecified; R39.12 Poor urinary stream; R33.9 Retention of urine, unspecified
CPT/HCPCS: 99204

== ENCOUNTER → 2023-05-17 13:54 | Outpatient (BNVA) | payer OTHER, SELFPAY | PROVIDERS: PCP Family Medicine; Visit Provider Nurse Practitioner Family | DX: R80.9 Proteinuria, unspecified (principal); R36.9 Urethral discharge, unspecified; R39.12 Poor urinary stream; R33.9 Retention of urine, unspecified | CPT/HCPCS: 51798; 99202 ==

== ENCOUNTER 2023-07-01 10:03 | Outpatient (REF) | payer OTHER, SELFPAY ==
--- NOTE | ~2023-07-01 | US_ITS ---
EXAMINATION: US RETROPERITONEAL COMPLETE (RENAL) CLINICAL INFORMATION: Poor urinary stream. COMPARISON: CT abdomen and pelvis 05/08/2020. Renal ultrasound 01/06/2017 and 09/10/2016. TECHNIQUE: Real-time imaging of the kidneys and bladder. FINDINGS: RIGHT KIDNEY: 7.7 x 4.2 x 4.5 cm (SAG x AP x TRV). The kidney is normal in size and contour. Renal cortical thickness is normal. No renal calculi or hydronephrosis. 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 LEFT KIDNEY: 12.1 x 6.6 x 5.6 cm (SAG x AP x TRV). The kidney is normal in size and contour. Renal cortical thickness is normal. No renal calculi or hydronephrosis. There are 3 cysts identified laterally 1.7 x 1.8 x 1.5 cm and laterally in the upper pole 1.5 x 1.2 x 1.5 cm, there is 1.6 x 1.6 x 1.7 cm cyst in the middle aspect of the cortex BLADDER: Urinary bladder is well distended with trabeculated wall. Bilateral ureteral jets are demonstrated. Prevoid bladder volume is 241.0 mL. Postvoid bladder volume is 22.2 mL. US/US retroperitoneal comp IMPRESSION: 1. Bilateral renal cysts. 2. Trabeculated urinary bladder wall. 3. Malrotated right kidney.
== END 2023-07-01 10:04 | disposition home or self-care (01) ==
LOC: HO.US 10:03
PROVIDERS: PCP Family Medicine; Visit Provider Nurse Practitioner Family
DX: R39.12 Poor urinary stream (principal)
CPT/HCPCS: 76770

== ENCOUNTER 2023-09-05 01:21 | Emergency (ER) | payer OTHER, SELFPAY ==
--- NOTE | 2023-09-05 | ECG_ITS ---
Test Reason : CHEST PAIN Blood Pressure : / mmHG Vent. Rate : 054 BPM Atrial Rate : 054 BPM P-R Int : 150 ms QRS Dur : 086 ms QT Int : 464 ms P-R-T Axes : 047 014 044 degrees QTc Int : 440 ms Sinus bradycardia RSR' or QR pattern in V1 suggests right ventricular conduction delay Abnormal ECG When compared with ECG of aug No significant changes seen Referred By: Generic ED Physician Electronically Signed By:ZEENAT YOUNG MD
[2023-09-05 01:31] VITALS: BP 135/85; BP 138/87; PULSE 55; PULSE 60; RESP 11; TEMP 36.6; O2SAT 94
[2023-09-05 01:36] VITALS: BP 138/87; PULSE 60; RESP 14; TEMP 36.6; O2SAT 96; BMI 24.7
[2023-09-05 01:58] LABS: Basophils Percent Auto 0.7 % (0-2); Imm Gran Abs Auto 0.02 X10*3/uL (0.00-0.03); Imm Gran Pct Auto 0.5 % (0.0-0.4); PLT CLUMP 1; SCAN SMEAR FLAG 1
[2023-09-05 02:00] LABS: Eosinophils Absolute Auto 0.5 X10*3/uL (0.0-0.4); Eosinophils Percent Auto 11.6 % (0-4); Hematocrit 45.6 % (42.0-52.0); Hemoglobin 15.5 g/dl (14.0-18.0); Lymphocytes Absolute Auto 0.7 X10*3/uL (1.2-4.9); Lymphocytes Percent Auto 16.7 % (20-40); Mean Corpuscular Hemoglobin 33.3 pg (27.0-33.0); Mean Corpuscular Volume 97.9 fL (80.0-98.0); Mean Platelet Volume 9.8 fL (9.4-12.4); Monocytes Absolute Auto 0.4 X10*3/uL (0.1-1.2); Monocytes Percent Auto 8.7 % (2-11); Neutrophils Absolute Auto 2.6 x10*3/uL (2.0-8.3); Neutrophils Percent Auto 61.8 % (45-73); Red Blood Count 4.66 X10*6/uL (4.60-5.80); Red Cell Distribution Width 12.3 % (11.0-16.0)
[2023-09-05 02:01] LABS: MANUAL DIFF FLAG NO; Platelet Count 119 X10*3/uL (160-400); White Blood Count 4.1 X10*3/uL (4.8-10.8)
[2023-09-05 02:14] LABS: Alanine Aminotransferase 21 U/L (0-40); Albumin Level 3.5 g/dL (3.5-5.0); Alkaline Phosphatase 56 U/L (39-117); Anion Gap 10 (12-20); Aspartate Amino Transferase 17 U/L (5-37); Bilirubin Total 0.3 mg/dL (0.0-1.0); Blood Urea Nitrogen 24 mg/dL (9-16); Calcium 9.1 mg/dL (8.4-10.2); Carbon Dioxide 25 mmol/L (22-29); Chloride 109 mmol/L (96-108); Creatinine Clr Calc Pharmacy 44.6; Estimated Glomerular Filt Rate 45; Glucose Random 106 mg/dL (60-115); Potassium 4.3 mmol/L (3.3-5.1); Sodium 140 mmol/L (135-145); Total Protein 6.4 g/dL (6.5-8.0)
[2023-09-05 02:21] LABS: Troponin-I High Sensitivity 11.2 ng/L (<3.5-35.0)
--- NOTE | 2023-09-05 03:18 | PC.NURSE ---
Pt assisted with urinal. Pt requested and hob lowered. Plan of care ongoing.
--- NOTE | 2023-09-05 03:19 | PC.NURSE ---
Pt ca&ox4, no signs of distress. Plan of care ongoing.
--- NOTE | 2023-09-05 03:25 | PC.NURSE ---
Pt unable to use urinal and requesting to use bathroom. Pt ambulates to the restroom with a steady gait. Plan of care ongoing.
--- NOTE | 2023-09-05 03:53 | ED.GENADULT ---
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 Patient states he woke up this morning to use the bathroom. He then ate a snack which consisted of ham, cheese and crackers. He then developed a tingly sensation in both hands, his hands began to cramp any felt like his arms and legs were heavy. He then felt a hot and cold sensation both arms. Patient was concerned about the symptoms and called an ambulance. He states that he has been under increased stress that he has been anxious because of the holidays. States this is 1st episode of this type of symptom. The patient states the symptoms completely resolved at the time my evaluation. Related Data Home Medications Medication Instructions Recorded Confirmed atorvastatin 10 mg tablet 10 mg PO BEDTIME 08/06/20 08/08/23 buspirone 30 mg tablet 30 mg PO BID 08/06/20 08/08/23 cholecalciferol (vitamin D3) 25 25 mcg PO QAM 08/06/20 08/08/23 mcg (1,000 unit) tablet fluticasone propionate 50 1 spray intranasal DAILY 08/06/20 08/08/23 mcg/actuation nasal spray,suspension folic acid 1 mg tablet 1 mg PO QAM 08/06/20 08/08/23 lidocaine 5 % topical cream 1 applic topical DAILY 08/06/20 08/08/23 loratadine 10 mg tablet 10 mg PO DAILY 08/06/20 08/08/23 mirtazapine 45 mg tablet 45 mg PO BEDTIME 08/06/20 08/08/23 phenytoin sodium extended 100 mg 300 mg PO QAM 08/06/20 08/08/23 capsule thiamine HCl (vitamin B1) 100 mg 100 mg PO QAM 08/06/20 08/08/23 tablet warfarin 4 mg tablet 4 mg PO 5XW 10/31/20 08/08/23 ketoconazole 2 % topical cream 2 appl topical Q OTHER DAY PRN Pain 11/13/20 08/08/23 naltrexone 50 mg tablet 50 mg PO DAILY 11/13/20 08/08/23 hydralazine 25 mg tablet 25 mg PO BID 01/07/23 08/08/23 warfarin 3 mg tablet 2 mg PO DAILY 05/17/23 08/08/23 Previous Rx's Medication Instructions Recorded omeprazole 20 mg capsule,delayed 20 mg PO DAILY gerd #30 caps 08/08/20 release acetaminophen 325 mg capsule 650 mg (2 x 325 mg) PO Q4H PRN 10/18/21 (Tylenol) fever or pain #20 caps benzonatate 100 mg capsule 100 mg PO TID PRN cough #30 caps 05/25/22 amlodipine 10 mg tablet 10 mg PO DAILY 90 days #90 tabs 04/15/23 tamsulosin 0.4 mg capsule 0.4 mg PO BEDTIME 30 days #30 caps 05/17/23 Allergies Allergy/AdvReac Type Severity Reaction Status Date / Time ibuprofen [From Motrin] Allergy Intermediate UNKNOWN Verified 08/08/23 11:56 acetaminophen [From Percocet] Allergy Unknown Verified 08/08/23 11:56 oxycodone Allergy Unknown Verified 08/08/23 11:56 Review of Systems Review of Systems: Yes all other systems are reviewed and are negative [facility] Past Medical History [facility] Narrative: Social history: He denies tobacco use. He states he did drink alcohol yesterday more than usual secondary to the holiday weekend. He denied drug use. Medical History Ascending aortic aneurysm Colon cancer screening Hemorrhoid Aortic aneurysm GERD (gastroesophageal reflux disease) Chronic anticoagulation Alcohol abuse Mood disorder Mood disorder due to a general medical condition Peripheral vascular disease DVT (deep venous thrombosis) Hyperhomocysteinemia CKD (chronic kidney disease) Depression Seizure Surgical History Hx of colonoscopy Hx of hernia repair Family History Family History Paternal Grandmother Cancer Maternal Grandfather Cancer Paternal Aunt Cancer Social History Household Members: None Housing: Apartment Are you a primary youth career specialist to a significant other at home: No Do you presently have visiting nurse or other home services: No Alcohol intake: current Alcohol intake frequency: holidays/special occasions only Alcohol type: beer Patient Tobacco Use Status: Never used Tobacco Smoked in Last 30 Days: No Use of substances other than those prescribed or required for medical reasons: No Advance Directives: Yes Advance Directives on File: Yes Advance Directives Date on File: 10/01/20 service: No Current occupational status: disabled Physical Exam ED Vital Signs: Vital Signs - 24 hr 09/05/23 01:31 09/05/23 01:36 Temperature 97.9 F 97.9 F Pulse Rate 55 60 Respiratory Rate 11 L 14 Blood Pressure 138/87 138/87 Pulse Oximetry 94 96 Oxygen Delivery Method Room Air Room Air BMI result Body Mass Index 24.7 Vital signs were normal except for bradycardia with a heart rate of 55. Exam General: Awake, alert in no distress Head: Normocephalic, atraumatic EENT: PERRL, Lids normal, sclera normal, conjunctiva normal, nose normal , ears normal, throat without erythema or exudates Neck: Supple, no adenopathy, no trachea midline or C-spine tenderness Lung: breath sounds symmetric, no wheezing, rales or rhonchi Chest: symmetric movement, nontender Heart: regular rate and rhythm, normal S1, S2 no murmurs or rubs Abdomen: soft, non-tender, nondistended, normal bowel sounds Back: no vertebral tenderness, no CVAT Extremities: no deformities, moves all extremities symmetrically Neuro: Awake, alert, oriented, normal speech, cranial nerves intact, moves all extremities symmetrically Psych: Pleasant, cooperative Medical Decision Making Medical Decision Making MDM Narrative: 68-year-old male with history of ascending aortic aneurysm, GERD, alcohol use disorder, mood disorder, peripheral vascular disease, DVT, chronic kidney disease, depression, seizures, hypertension, hyperlipidemia who presents emergency department for evaluation of palpitations, tingling in both hands, heaviness in his extremities. His symptom resolved at the time my evaluation. Vital signs were normal except for bradycardia. Physical exam was unremarkable. Following evaluation was ordered: CBC, CMP, troponin, EKG 04:16 Patient's laboratory evaluate was consistent with his baseline. Patient's troponin was detectable but not elevated and his 12 lead EKG was unremarkable except for bradycardia Patient's presentation is consistent with anxiety and hyperventilation syndrome and I did discuss this with him Patient is at his baseline and does not need any medications, he will be discharged home. Differential Diagnosis Differential Diagnoses: The differential diagnosis associated with the presentation includes Differential diagnosis includes was not limited to myocardial infarction, myocardial ischemia, stroke, electrolyte abnormality, anemia, anxiety, hyperventilation syndrome Admission/Observation Consideration of admission/observation: Escalation of care including admission/observation considered Lab Data MDM Lab Attestation statement: I reviewed the patient's lab results. Interpretation patient's laboratory evaluation as follows: WBC low 4100-chronic. Platelet count low 119,000-chronic. Elevated BUN creatinine 24 and 1.54-chronic. Troponin was detectable but not elevated at 11.2 09/05/23 01:53 09/05/23 01:53 Labs: Lab Results 09/05/23 Range/Units 01:53 WBC 4.1 L (4.8-10.8) X10*3/uL RBC 4.66 (4.60-5.80) X10*6/uL Hgb 15.5 (14.0-18.0) g/dl Hct 45.6 (42.0-52.0) % MCV 97.9 (80.0-98.0) fL MCH 33.3 H (27.0-33.0) pg MCHC 34.0 (31.0-36.0) g/dl RDW 12.3 (11.0-16.0) % Plt Count 119 L (160-400) X10*3/uL MPV 9.8 (9.4-12.4) fL Immature Gran % (Auto) 0.5 H (0.0-0.4) % Neut % (Auto) 61.8 (45-73) % Lymph % (Auto) 16.7 L (20-40) % [place] % (Auto) 8.7 (2-11) % Eos % (Auto) 11.6 H (0-4) % Baso % (Auto) 0.7 (0-2) % Lymph # (Auto) 0.7 L (1.2-4.9) X10*3/uL [place] # (Auto) 0.4 (0.1-1.2) X10*3/uL Eos # (Auto) 0.5 H (0.0-0.4) X10*3/uL Baso # (Auto) 0.0 (0.0-0.2) X10*3/uL Abs Immat Gran (auto) 0.02 (0.00-0.03) X10*3/uL Absolute Neuts (auto) 2.6 (2.0-8.3) x10*3/uL Absolute Nucleated RBC 0.000 (0.0-0.012) X10*3/uL Nucleated RBC % (auto) 0.0 (0.0-0.2) /100WBC Sodium 140 (135-145) mmol/L Potassium 4.3 (3.3-5.1) mmol/L Chloride 109 H (96-108) mmol/L Carbon Dioxide 25 (22-29) mmol/L Anion Gap 10 L (12-20) BUN 24 H (9-16) mg/dL Creatinine 1.54 H (0.5-1.4) mg/dL Estim Creat Clear Calc 44.6 Estimated GFR 45 Random Glucose 106 (60-115) mg/dL Calcium 9.1 D (8.4-10.2) mg/dL Total Bilirubin 0.3 (0.0-1.0) mg/dL AST 17 (5-37) U/L ALT 21 (0-40) U/L Alkaline Phosphatase 56 (39-117) U/L Troponin I High Sens 11.2 (<3.5-35.0) ng/L Total Protein 6.4 L (6.5-8.0) g/dL Albumin 3.5 (3.5-5.0) g/dL Independent Interpretation I performed an independent interpretation of an: EKG Interpretation: Interpretation patient's 12 EKG done at 04:45 hours is as follows: Sinus bradycardia with a rate of 54, normal OK interval, QRS duration QTC interval, no ST segment elevation, no ST segment depression, inverted T-wave in V1, no PACs, no PVCs except for the bradycardia this is a normal EKG. External Record Review External record reviewed: Office record (Cardiology note 10/19/2022) Chronic Conditions Patient?s care impacted by: Hypertension Discharge Plan Discharge Clinical Impression: Acute hyperventilation syndrome, Anxiety Patient Disposition: Home, Self-Care Instructions: Hyperventilation (ED) Additional Instructions: Your blood work was unchanged from your previous tests which is reassuring Your EKG was unremarkable pain Your symptoms are consistent with anxiety and hyperventilation syndrome Continue taking medications as prescribed by your providers Follow-up with your doctor in 2 days. Please return to the emergency department if your symptoms get worse or if you develop any symptoms that are concerning to you. Prescriptions: No Action hydralazine 25 mg tablet 25 mg PO BID Patient Comments: being started by PCP amlodipine 10 mg tablet 10 mg PO DAILY 90 Days Qty: 90 3RF atorvastatin 10 mg tablet 10 mg PO BEDTIME lidocaine 5 % cream 1 applic topical DAILY thiamine HCl (vitamin B1) 100 mg tablet 100 mg PO QAM phenytoin sodium extended 100 mg capsule 300 mg PO QAM buspirone 30 mg tablet 30 mg PO BID mirtazapine 45 mg tablet 45 mg PO BEDTIME folic acid 1 mg tablet 1 mg PO QAM fluticasone propionate 50 mcg/actuation spray,suspension 1 spray intranasal DAILY loratadine 10 mg tablet 10 mg PO DAILY cholecalciferol (vitamin D3) 25 mcg (1,000 unit) tablet 25 mcg PO QAM omeprazole 20 mg capsule,delayed release(DR/EC) 20 mg PO DAILY Qty: 30 0RF acetaminophen [Tylenol] 325 mg capsule 650 mg PO Q4H PRN (Reason: fever or pain) Qty: 20 0RF benzonatate 100 mg capsule 100 mg PO TID PRN (Reason: cough) Qty: 30 0RF warfarin 4 mg tablet 4 mg PO 5XW Protocol: Dose Management Condition: Tuesday (Week One) Dose/Route: 4 mg Instruction: 1 x 4 mg tablet Condition: Tuesday Dose/Route: 4 mg Instruction: 1 x 4 mg tablet Condition: Tuesday Dose/Route: 3 mg Instruction: 1 x 3 mg tablet Condition: Tuesday Dose/Route: 4 mg Instruction: 1 x 4 mg tablet Condition: Dose/Route: 4 mg Instruction: 1 x 4 mg tablet Condition: Tuesday Dose/Route: 4 mg Instruction: 1 x 4 mg tablet Condition: Tuesday Dose/Route: 4 mg Instruction: 1 x 4 mg tablet Condition: Tuesday (Week Two) Dose/Route: 4 mg Instruction: 1 x 4 mg tablet Condition: Tuesday Dose/Route: 4 mg Instruction: 1 x 4 mg tablet Condition: Tuesday Dose/Route: 3 mg Instruction: 1 x 3 mg tablet Condition: Tuesday Dose/Route: 4 mg Instruction: 1 x 4 mg tablet Condition: Dose/Route: 4 mg Instruction: 1 x 4 mg tablet Condition: Tuesday Dose/Route: 4 mg Instruction: 1 x 4 mg tablet Condition: Tuesday Dose/Route: 4 mg Instruction: 1 x 4 mg tablet Protocol Text: Adjustment Start Date: 07/02/21 INR Value: 1.9 INR Date: 07/02/21 Recheck Date: 07/16/21 ketoconazole 2 % cream 2 appl topical Q OTHER DAY PRN (Reason: Pain) naltrexone 50 mg tablet 50 mg PO DAILY warfarin 3 mg tablet 2 mg PO DAILY Protocol: Dose Management Condition: Tuesday (Week One) Dose/Route: 4 mg Instruction: 1 x 4 mg tablet Condition: Tuesday Dose/Route: 4 mg Instruction: 1 x 4 mg tablet Condition: Tuesday Dose/Route: 3 mg Instruction: 1 x 3 mg tablet Condition: Tuesday Dose/Route: 4 mg Instruction: 1 x 4 mg tablet Condition: Dose/Route: 4 mg Instruction: 1 x 4 mg tablet Condition: Tuesday Dose/Route: 4 mg Instruction: 1 x 4 mg tablet Condition: Tuesday Dose/Route: 4 mg Instruction: 1 x 4 mg tablet Condition: Tuesday (Week Two) Dose/Route: 4 mg Instruction: 1 x 4 mg tablet Condition: Tuesday Dose/Route: 4 mg Instruction: 1 x 4 mg tablet Condition: Tuesday Dose/Route: 3 mg Instruction: 1 x 3 mg tablet Condition: Tuesday Dose/Route: 4 mg Instruction: 1 x 4 mg tablet Condition: Dose/Route: 4 mg Instruction: 1 x 4 mg tablet Condition: Tuesday Dose/Route: 4 mg Instruction: 1 x 4 mg tablet Condition: Tuesday Dose/Route: 4 mg Instruction: 1 x 4 mg tablet Protocol Text: Adjustment Start Date: 07/02/21 INR Value: 1.9 INR Date: 07/02/21 Recheck Date: 07/16/21 tamsulosin 0.4 mg capsule 0.4 mg PO BEDTIME 30 Days Qty: 30 1RF
== END 2023-09-05 06:37 | disposition home or self-care (01) ==
PROVIDERS: Emergency Provider Emergency Medicine Emergency Medical Services; PCP Family Medicine
DX: F45.8 Other somatoform disorders (principal); F41.9 Anxiety disorder, unspecified; R00.1 Bradycardia, unspecified; I12.9 Hypertensive chronic kidney disease with stage 1 through stage 4 chronic kidney disease, or unspecified chronic kidney disease; N18.9 Chronic kidney disease, unspecified; E78.5 Hyperlipidemia, unspecified; Z86.718 Personal history of other venous thrombosis and embolism; Z79.02 Long term (current) use of antithrombotics/antiplatelets; Z79.899 Other long term (current) drug therapy; Z79.01 Long term (current) use of anticoagulants
CPT/HCPCS: 36415; 80053; 84484; 85025; 93005; 99283; 99284

== ENCOUNTER → 2023-09-05 13:00 | Outpatient (REF) | payer OTHER, SELFPAY ==
--- NOTE | 2023-09-05 13:03 | CA_ITS ---
Transthoracic Echocardiogram Patient (Last, First, Middle): Chriss Munoz, Gender: Male Date of : 1955 Age: 68 Procedure Date: 09/05/2023 Procedure Type: Transthoracic Echocardiogram Location: OP Height: 175.26 cm Weight: 72.58 kg BSA: 1.88 m2 Heart Rate: 68 bpm BP: 120 / 80 mmHg Tax Collector: DARBY Nava MD: Jenny Oden MATERIAL HANDLER 2ND [employer] Electronic Commerce Specialist: Paulie Viera MD Symptoms: I35.0 - Nonrheumatic aortic (valve) stenosis Study Quality: Fair/w Contrast ECG Rhythm: Sinus Conclusions: - 1. Normal LV ejection fraction 65-70% with mild LVH with grade 1 diastolic dysfunction 2. Lsvy-dr-wuaueepk aortic stenosis and trivial aortic regurgitation with possible bicuspid aortic valve 3. Normal RV systolic pressure 4. Mildly dilated ascending aorta at 4.2 cm 5. No gross pericardial effusion Findings Procedure Information Contrast agent, definity, is being given per protocol without apparent complications. Left Ventricle Normal left ventricular size and systolic function. There is mildly increased left ventricular wall thickness. The visually estimated ejection fraction is between 65-70%. Spectral Doppler is indicative of an impaired relaxation filling pattern. E/E prime ratio is <8, consistent with normal filling pressures. Evidence suggests grade I (mild) diastolic dysfunction. There is moderate septal asymmetric hypertrophy. Right Ventricle Normal right ventricular cavity size and systolic function. Atria The left atrium is normal in size. There is no evidence of interatrial shunt. The right atrium is likely dilated. Aortic Valve There is moderate calcification of the aortic valve. There is mild to moderate aortic valve stenosis. The peak aortic gradient is 28 mmHg.The mean gradient is 15 mmHg. The aortic valve area is 1.31 cm2. There is trace (trivial) aortic valve regurgitation. bicuspid aortic valve cannot be entirely ruled out on this study Mitral Valve There is mild anterior mitral leaflet thickening. There is mild mitral annular calcification. There is trace mitral valve regurgitation. There is no mitral valve stenosis. Pulmonic Valve The pulmonic valve was not well visualized. Tricuspid Valve Normal tricuspid valve structure. There is trace tricuspid valve regurgitation. The right ventricular systolic pressure is normal. The right ventricular systolic pressure is 17 mmHg. Normal right atrial pressure. There is no evidence of pulmonary hypertension. Great Vessels The pulmonary artery was not well visualized. There is mild dilatation of the ascending aorta measuring 4.20 cm. Venous The inferior vena cava is normal in size and collapses greater than 50% with inspiration. Pericardium/Pleural There is no evidence of pericardial effusion. Prior Study Comparison Changes noted compared to prior study dated: 08/19/2022. there is mild progression in aortic valve stenosis Measurements 2D Linear Measurements IVSd: 1.77 0.6-0.9/0.6-1.0 cm LVIDd: 3.58 3.9-5.3/4.2-5.9 cm LVIDd Index: 1.90 2.4-3.2/2.2-3.1 cm/m2 LVIDs: 2.13 2.0-3.6 cm LVPWd: 1.15 0.7-1.1 cm LA Diam: 3.60 2.7-3.8/3.0-4.0 cm LAIDs Index: 1.91 1.5-2.3 cm/m2 LV Mass: 237.89 67-162/88-224 g LV Mass Index: 126.54 43-95/49-115 g/m2 LVOT Diam: 1.80 3.0+(-)1.3 cm 2D Systolic Function EF 4C: 59.00 >55% EF 2C: 84.10 >55% EF BiP: 73.50 >55% Mitral Valve MV Pk E: 0.63 MV PK A: 0.93 MV Decel Time: 299.00 E/A: 0.70 E'Lateral: 8.38 E'Medial: 6.53 E/E' Med: 9.60 E/E' Lat: 7.50 PHT: 88.00 MVA PHT: 2.50 Decel Borden: 2.10 Aortic Valve AoV Pk Eze: 2.63 AoV Mn Eze: 1.77 AoV VTI: 0.51 AoV Pk Grad: 28.00 Aov Mn Grad: 15.00 HUSSEIN Cont.VTI: 1.31 LVOT LVOT Pk Eze: 1.39 LVOT Mn Eze: 0.94 LVOT VTI: 0.26 LVOT Pk Grad: 8.00 LVOT Mn Grad: 4.00 LVOT Diam: 1.80 LVOT Area: 2.54 Diastolic Function MV Pk E: 0.63 MV Pk A: 0.93 E/A: 0.70 E'Medial: 6.53 E/E' Med: 9.60 E' Laterial: 8.38 E/E' Lat: 7.50 Right Ventricle TAPSE (mm): 21.30 TVS' Eze: 12.90 Tricuspid Valve TR Pk Eze: 1.86 TR Pk Grad: 14.00 RA Press: 3.00 RVSP: 17.00 Great Vessels Aorta Sinus of Valsalva: 3.50 2.0-3.5 cm Ao Asc: 4.20 2.1-3.4 cm Pulmonary Valve PV Pk Eze: 1.29 Peak PV Grad: 7.00 Updated in Other Vendor System with Status of Final Paulie Viera MD electronically signed on 09/05/2023 5:32:47 PM with status of Final
== END ==
LOC: HO.CARD 13:00
PROVIDERS: PCP Family Medicine; Visit Provider Nurse Practitioner Family
DX: I35.0 Nonrheumatic aortic (valve) stenosis (principal); I71.21 Aneurysm of the ascending aorta, without rupture
CPT/HCPCS: 93306; Q9957

== ENCOUNTER → 2023-09-05 13:03 | Outpatient (BNV) | payer OTHER, SELFPAY | PROVIDERS: PCP Family Medicine; Visit Provider Internal Medicine Cardiovascular Disease | DX: I35.0 Nonrheumatic aortic (valve) stenosis (principal) | CPT/HCPCS: 93306 ==

== ENCOUNTER 2023-09-20 09:41 | Outpatient (AMB) | payer OTHER, SELFPAY ==
[2023-09-20 09:51] VITALS: BP 130/70; PULSE 57; BMI 24.0
--- NOTE | 2023-09-20 09:51 | A.OFFVIS_ITS ---
Intake Vital Signs 09/20/23 09:51 Height 5 ft 9 in Weight 162 lb 4.163 oz BMI 24.0 BP 130/70 Blood Pressure Location Lt brachial Position Sitting Pulse 57 Intake Visit Reasons: f/up echo in NOV per DC Intake Note: follow up Renal Nurse Required: Yes Renal Nurse Language: Medical Research Assistant Name: Poli [id number] Accompanied by: Self / Same As Patient Allergies ibuprofen [From Motrin] Allergy (Intermediate, Verified 09/20/23 09:52) UNKNOWN acetaminophen [From Percocet] Allergy (Verified 09/20/23 09:52) Unknown oxycodone Allergy (Verified 09/20/23 09:52) Unknown Medication List - Last Reconciled 09/20/23 by Karri Trinidad MD acetaminophen (Tylenol) 650 mg (2 x 325 mg) PO Q4H PRN amlodipine 10 mg PO DAILY 90 days atorvastatin 10 mg PO BEDTIME benzonatate 100 mg PO TID PRN buspirone 30 mg PO BID cholecalciferol (vitamin D3) 25 mcg PO QAM fluticasone propionate 50 mcg/actuation 1 spray intranasal DAILY folic acid 1 mg PO QAM hydralazine 25 mg PO BID ketoconazole 2% 2 appl topical Q OTHER DAY PRN lidocaine 5% 1 appl topical DAILY loratadine 10 mg PO DAILY mirtazapine 45 mg PO BEDTIME naltrexone 50 mg PO DAILY omeprazole 20 mg PO DAILY phenytoin sodium extended 300 mg PO QAM tamsulosin 0.4 mg PO BEDTIME 30 days thiamine HCl (vitamin B1) 100 mg PO QAM warfarin 4 mg See Protocol PO 5XW warfarin 2 mg See Protocol PO DAILY HPI HPI Comments History of Present Illness Details Chriss returns for follow-up. He has a history of aortic aneurysm as well as aortic stenosis. Overall, he is generally feeling okay. No clear-cut symptoms like angina. At nighttime, he states that his heart is racing. Not clear if he is having any atrial arrhythmias. [facility] Medical History Ascending aortic aneurysm Colon cancer screening Hemorrhoid Aortic aneurysm GERD (gastroesophageal reflux disease) Chronic anticoagulation Alcohol abuse Mood disorder Mood disorder due to a general medical condition Peripheral vascular disease DVT (deep venous thrombosis) Hyperhomocysteinemia CKD (chronic kidney disease) Depression Seizure Surgical History Hx of colonoscopy Hx of hernia repair Family History Paternal Grandmother Cancer Maternal Grandfather Cancer Paternal Aunt Cancer Social History Household Members: None Housing: Apartment Are you a primary care management specialist to a significant other at home: No Do you presently have visiting nurse or other home services: No Alcohol intake: current Alcohol intake frequency: holidays/special occasions only Alcohol type: beer Patient Tobacco Use Status: Never used Tobacco Advance Directives Date on File: 10/01/20 service: No Current occupational status: disabled Review of Systems Const Denies weakness ENT Denies dizziness Card Denies chest pain with activity, Denies syncope, Denies pedal edema, Denies edema, Denies leg edema, Denies lightheadedness, Denies dyspnea, Denies dyspnea on exertion and Denies orthopnea Resp Denies cough, Denies dyspnea and Denies dyspnea on exertion GI Denies hematochezia and Denies change in stool character Musc Denies abnormal gait, Denies muscle cramps, Denies muscle weakness, Denies numbn ess, Denies radiating pain into limb and Denies tingling Neuro Denies abnormal gait, Denies dizziness, Denies syncope, Denies numbness, Denies tingling and Denies weakness Physical Exam Vital Signs: Last Vital Signs Pulse 57 09/20/23 09:51 BP 130/70 09/20/23 09:51 BMI result Body Mass Index 24.0 Const General: comfortable and no acute distress Orientation/consciousness: patient oriented x3 HEENT Other: Unremarkable Head: Yes normal to inspection Neck Neck: Yes normal visual inspection Chest Chest palpation & inspection: normal inspection of the chest Resp Auscultation: clear to auscultation bilaterally Cardio Palpation: normal PMI Heart sounds: S1 normal heart sound present, S2 normal heart sound present, no gallops, Murmur heart sound present systolic II/ and at the right sternal border and no rubs GI Palpation (GI): Soft to palpation Back/Spine/Pelvis Other: unremarkable Skin General skin exam: no rashes or lesions noted Neuro General: patient oriented x3 Extrem General: Yes normal to inspection Psych Mental Status: mental status grossly normal Assessment & Plan Assessment & Plan (1) Ascending aortic aneurysm: Code(s): I71.21 - Aneurysm of the ascending aorta, without rupture Qualifiers: Presence of rupture: without rupture Qualified Code(s): I71.21 - Aneurysm of the ascending aorta, without rupture (2) Non-rheumatic aortic stenosis: Code(s): I35.0 - Nonrheumatic aortic (valve) stenosis Plan In the most recent echocardiogram, aortic valve is moderately calcified. [id number]-suyuksks aortic stenosis. Mean gradient is 15 mm Hg. Calculated valve area of 1.3 sq cm. There is also question of bicuspid valve. Ascending aortic size is 4.2 cm. This is fairly stable. In a prior CTA from 2020, similar size. With regard to the above findings, will need follow-up echocardiograms. We will recheck echo in 1 year. Blood pressure will need to be aggressively controlled. Today, it is 130/70 mm Hg. Ideally, even lower and closer to 120 mm systolic. With regard to his complaint of palpitations, we can do a Holter monitor. Orders: Orders ECG 7 day holter monitor Today R00.2 - Palpitations Coding Level of Care Code Est Pt Level 4 (51978) Diagnoses Aneurysm of ascending aorta without rupture I71.21 Presence of rupture: without rupture Non-rheumatic aortic stenosis I35.0
== END 2023-09-20 10:06 | disposition home or self-care (01) ==
PROVIDERS: Visit Provider Internal Medicine
DX: I71.21 Aneurysm of the ascending aorta, without rupture (principal); I35.0 Nonrheumatic aortic (valve) stenosis
CPT/HCPCS: 99214

== ENCOUNTER → 2023-09-20 09:41 | Outpatient (BNVA) | payer OTHER, SELFPAY | PROVIDERS: Visit Provider Internal Medicine | DX: I71.21 Aneurysm of the ascending aorta, without rupture (principal); I35.0 Nonrheumatic aortic (valve) stenosis | CPT/HCPCS: 99212 ==

== ENCOUNTER 2023-10-19 11:41 | Emergency (ER) | payer OTHER, SELFPAY ==
--- NOTE | ~2023-10-19 | XR_ITS ---
EXAMINATION: PA AND LATERAL CHEST, KUB CLINICAL INFORMATION: Chest pain, left upper quadrant pain with history of bowel obstruction COMPARISON: Chest radiograph 04/01/2023 TECHNIQUE: 2 views chest, single view abdomen FINDINGS: The heart and pulmonary vessels appear normal. No infiltrates, effusions or lung masses are seen some mild scarring is present in the retrocardiac region. The abdominal bowel gas pattern is normal with gas and stool seen throughout the colon. There is no evidence of bowel obstruction. No unusual calcifications are seen. XR/XR KUB IMPRESSION: No acute intrathoracic disease. No evidence of bowel obstruction.
--- NOTE | ~2023-10-19 | XR_ITS ---
EXAMINATION: PA AND LATERAL CHEST, KUB CLINICAL INFORMATION: Chest pain, left upper quadrant pain with history of bowel obstruction COMPARISON: Chest radiograph 04/01/2023 TECHNIQUE: 2 views chest, single view abdomen FINDINGS: The heart and pulmonary vessels appear normal. No infiltrates, effusions or lung masses are seen some mild scarring is present in the retrocardiac region. The abdominal bowel gas pattern is normal with gas and stool seen throughout the colon. There is no evidence of bowel obstruction. No unusual calcifications are seen. XR/XR chest 2V IMPRESSION: No acute intrathoracic disease. No evidence of bowel obstruction.
--- NOTE | 2023-10-19 11:45 | ED.GENADULT ---
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 Patient went to [facility] where he had an EKG and was given 324 mg aspirin, 2 sublingual nitro. Patient was given an additional dose of nitro by EMS with full resolution of pain. Patient reports pain has returned and is currently /10. History of bowel obstruction in the past but states this pain is different. Reports pain increased when he leaned forward to tie his shoes. Complains of recent nonproductive cough, denies fevers. Reports constipation and states that he last had a small, hard bowel movement this morning which he describes as a pebble. Reports similar type of BM a few days ago, but states that was several small, hard balls of stool. Denies any nausea, vomiting or diarrhea. MD complaint: chest pain Onset (ago): hour(s) Location: chest and left Radiation: non-radiation Severity scale (1-10): 4 Quality: sharp Pain Consistency: constant Relieving factors: medication (nitro) Exacerbating factors: other (leaning forward) Associated symptoms: cough Treatments prior to arrival: aspirin and other (ntg) Related Data Home Medications Medication Instructions Recorded Confirmed atorvastatin 10 mg tablet 10 mg PO BEDTIME 08/06/20 09/20/23 buspirone 30 mg tablet 30 mg PO BID 08/06/20 10/19/23 cholecalciferol (vitamin D3) 25 25 mcg PO QAM 08/06/20 10/19/23 mcg (1,000 unit) tablet fluticasone propionate 50 1 spray intranasal DAILY 08/06/20 10/19/23 mcg/actuation nasal spray,suspension folic acid 1 mg tablet 1 mg PO QAM 08/06/20 10/19/23 lidocaine 5 % topical cream 1 applic topical QID PRN Pain 08/06/20 09/20/23 loratadine 10 mg tablet 10 mg PO DAILY@0900 08/06/20 10/19/23 mirtazapine 45 mg tablet 45 mg PO BEDTIME 08/06/20 10/19/23 phenytoin sodium extended 100 mg 300 mg PO QAM 08/06/20 10/19/23 capsule thiamine HCl (vitamin B1) 100 mg 100 mg PO QAM 08/06/20 10/19/23 tablet naltrexone 50 mg tablet 50 mg PO DAILY 11/13/20 10/19/23 hydralazine 25 mg tablet 25 mg PO TID 01/07/23 10/19/23 acetaminophen 325 mg capsule 650 mg PO Q8H PRN fever or pain 10/19/23 10/19/23 (Tylenol) amlodipine 10 mg tablet 10 mg PO BEDTIME 10/19/23 docusate sodium 100 mg capsule 100 mg PO BID 10/19/23 10/19/23 gabapentin 300 mg capsule 300 mg PO BEDTIME pain 10/19/23 10/19/23 omeprazole 20 mg capsule,delayed 20 mg PO BID gerd 10/19/23 10/19/23 release warfarin 1 mg tablet 5 mg PO TH 10/19/23 10/19/23 warfarin 4 mg tablet 4 mg PO SUMOTUWEFRSA 10/19/23 10/19/23 Previous Rx's Medication Instructions Recorded tamsulosin 0.4 mg capsule 0.4 mg PO BEDTIME 30 days #30 caps 05/17/23 Allergies Allergy/AdvReac Type Severity Reaction Status Date / Time ibuprofen [From Motrin] Allergy Intermediate UNKNOWN Verified 10/19/23 11:51 acetaminophen [From Percocet] Allergy Unknown Verified 10/19/23 11:51 oxycodone Allergy Unknown Verified 10/19/23 11:51 Review of Systems Review of Systems: As per HPI Yes all other systems are reviewed and are negative Constitutional: Constitutional: Reports as per HPI PMFSH Past Medical History Onset Date is defined in the Problem List Problems that require an onset date and time if occurred within 24 hrs of arrival to the ED Aortic Dissection and Rupture; Neurologic impairment; Cardiopulmonary Arrest; Endotracheal Intubation; Insertion or Replacement of Mechanical Circulatory Assist Device Medical History Ascending aortic aneurysm Colon cancer screening Hemorrhoid Aortic aneurysm GERD (gastroesophageal reflux disease) Chronic anticoagulation Alcohol abuse Mood disorder Mood disorder due to a general medical condition Peripheral vascular disease DVT (deep venous thrombosis) Hyperhomocysteinemia CKD (chronic kidney disease) Depression Seizure Surgical History Hx of colonoscopy Hx of hernia repair Family History Family History Paternal Grandmother Cancer Maternal Grandfather Cancer Paternal Aunt Cancer Social History Social History Household Members: None Housing: Apartment Are you a primary specialist wound care to a significant other at home: No Do you presently have visiting nurse or other home services: No Alcohol intake: current Alcohol intake frequency: holidays/special occasions only Alcohol type: beer Patient Tobacco Use Status: Never used Tobacco Smoked in Last 30 Days: No Use of substances other than those prescribed or required for medical reasons: No Advance Directives: Yes Advance Directives on File: Yes Advance Directives Date on File: 10/01/20 service: No Current occupational status: disabled Physical Exam ED Vital Signs: Vital Signs - 24 hr 10/19/23 11:51 10/19/23 13:07 10/19/23 13:39 Temperature 98.2 F Pulse Rate 58 54 53 Respiratory Rate 16 15 16 Blood Pressure 139/79 132/78 134/83 Pulse Oximetry 96 96 98 Oxygen Delivery Method Room Air Room Air Room Air BMI result Body Mass Index 23.7 Vital signs have been reviewed and appear to be correct. Blood pressure normal. Heart rate normal. Respiratory rate normal. Temperature normal. Oxygen saturation normal. Const General: cooperative, healthy appearing and no acute distress Orientation/consciousness: oriented to person, oriented to place, oriented to time and patient oriented x3 Limitations: no limitations [facility] Head: Yes normocephalic and Yes atraumatic Ears: external ears normal General nose exam: Normal external nose present Face and sinus: Yes face symmetric Mouth: oropharynx normal and moist mucous membranes Throat: Yes uvula midline Eyes Pupils: Equal, round and reactive pupils present Neck Neck: Yes normal visual inspection and Yes supple Resp Effort & Inspection: normal respiratory effort and able to speak in complete sentences Auscultation: clear to auscultation bilaterally Cardio Rate: regular rate Rhythm: regular rhythm Heart sounds: S1 normal heart sound present and S2 normal heart sound present GI Inspection: Yes normal to inspection Palpation (GI): Soft to palpation, nontender, no guarding, not rigid, no masses, no pulsatile masses and No Rebound tenderness present Auscultation: normoactive bowel sounds General: Yes no CVA tenderness Back/Spine/Pelvis Back: no CVA tenderness Skin General skin exam: elasticity normal and turgor normal Neuro General: oriented to person, oriented to place, oriented to time, patient oriented x3, moves all extremities, no focal motor deficits and CN's II-XI intact bilaterally Cranial nerves: Yes Equal, round and reactive pupils present Cognition (Neuro): normal cognition Extrem General: Yes full ROM, Yes no pedal edema and Yes no calf tenderness Psych Mental Status: mental status grossly normal Affect: normal affect Thought process: Normal thought process present Medical Decision Making Medical Decision Making MDM Narrative: Patient is a 68-year-old Croatian-speaking male with history of AAA, aortic stenosis, GERD, CKD, DVT, PVD, mood disorder, and alcohol abuse presenting to the ED with complaint of left anterior chest pain and palpitations since this morning. On exam patient is awake, A+Ox3, VS WNL, afebrile, normal neurological exam without focal deficits, physical exam findings as above. Given reported symptoms and physical exam findings, initial differential includes ACS, musculoskeletal pain, pneumonia, pneumothorax. Less likely AAA rupture as patient is well-appearing, but will obtain CXR to assess for widening mediastinum. Unlikely PE as patient is anticoagulated. Labs notable for leukopenia consistent with baseline, no anemia, thrombocytopenia also consistent with baseline, elevated BUN and creatinine also consistent with baseline, do not suspect AAYUSH, initial troponin 7.2, will recheck in 3 hours to assess for delta, INR therapeutic. EKG shows sinus bradycardia. X-ray chest notable for no evidence of widening mediastinum, pneumonia, or pneumothorax. KUB is without evidence of obstruction. My interpretation is in agreement with the radiologist's interpretation. Review of EMR shows patient recently saw asset protection associate, Dr. Trinidad, on 09/20/23 and was complaining of palpitations at that visit, Holter monitor was ordered at that time, AAA appeared stable at that visit. No delta on repeat troponin. HEART score 5. Results discussed with patient and all questions answered. Feel patient is stable for discharge home at this time for outpatient Cardiology follow up. Strict return precautions discussed at bedside. Patient verbalized understanding of and agreement with plan. Differential Diagnosis Differential Diagnoses: The differential diagnosis associated with the presentation includes As per MDM. Admission/Observation Consideration of admission/observation: Escalation of care including admission/observation considered Lab Data [facility] Lab Attestation statement: I reviewed the patient's lab results. As per MDM. 10/19/23 12:04 10/19/23 12:04 Labs: Lab Results 10/19/23 10/19/23 Range/Units 12:04 15:06 WBC 3.7 L (4.8-10.8) X10*3/uL RBC 4.88 (4.60-5.80) X10*6/uL Hgb 16.3 (14.0-18.0) g/dl Hct 47.9 (42.0-52.0) % MCV 98.2 H (80.0-98.0) fL MCH 33.4 H (27.0-33.0) pg MCHC 34.0 (31.0-36.0) g/dl RDW 12.4 (11.0-16.0) % Plt Count 114 L (160-400) X10*3/uL MPV 10.4 (9.4-12.4) fL Immature Gran % (Auto) 0.3 (0.0-0.4) % Neut % (Auto) 67.7 (45-73) % Lymph % (Auto) 18.2 L (20-40) % Fillmore % (Auto) 8.4 (2-11) % Eos % (Auto) 4.9 H (0-4) % Baso % (Auto) 0.5 (0-2) % Lymph # (Auto) 0.7 L (1.2-4.9) X10*3/uL [place] # (Auto) 0.3 (0.1-1.2) X10*3/uL Eos # (Auto) 0.2 (0.0-0.4) X10*3/uL Baso # (Auto) 0.0 (0.0-0.2) X10*3/uL Abs Immat Gran (auto) 0.01 (0.00-0.03) X10*3/uL Absolute Neuts (auto) 2.5 (2.0-8.3) x10*3/uL Absolute Nucleated RBC 0.000 (0.0-0.012) X10*3/uL Nucleated RBC % (auto) 0.0 (0.0-0.2) /100WBC PT 34.4 H (11.1-13.3) SEC INR 2.8 H (0.9-1.1) Sodium 139 (135-145) mmol/L Potassium 4.3 (3.3-5.1) mmol/L Chloride 111 H (96-108) mmol/L Carbon Dioxide 20 L (22-29) mmol/L Anion Gap 12 (12-20) BUN 25 H (9-16) mg/dL Creatinine 1.49 H (0.5-1.4) mg/dL Estim Creat Clear Calc 47.6 Estimated GFR 47 Random Glucose 101 (60-115) mg/dL Calcium 8.8 (8.4-10.2) mg/dL Total Bilirubin 0.3 (0.0-1.0) mg/dL AST 16 (5-37) U/L ALT 20 (0-40) U/L Alkaline Phosphatase 60 (39-117) U/L Troponin I High Sens 7.2 8.2 (<3.5-35.0) ng/L Total Protein 6.5 (6.5-8.0) g/dL Albumin 3.5 (3.5-5.0) g/dL Independent Interpretation I performed an independent interpretation of an: EKG (sinus bradycardia, rate 57 bpm, normal OR and QT intervals) and Plain X-Ray Interpretation: X-ray chest notable for no evidence of widening mediastinum, pneumonia, or pneumothorax. KUB is without evidence of obstruction. Radiology Impression Discussion of test interpretation with radiology: I have reviewed the radiologist's reading. Radiologist Impression: FINDINGS: The heart and pulmonary vessels appear normal. No infiltrates, effusions or lung masses are seen some mild scarring is present in the retrocardiac region. The abdominal bowel gas pattern is normal with gas and stool seen throughout the colon. There is no evidence of bowel obstruction. No unusual calcifications are seen. XR/XR chest 2V IMPRESSION: No acute intrathoracic disease. No evidence of bowel obstruction. External Record Review External record reviewed: Inpatient record, Office record and Outpatient record Chronic Conditions Patient?s care impacted by: Hypertension and Other Scores Heart Score History: -1- moderately suspicious ECG: -0- normal Age: -2- > or = 65 Risk factory: -2- 3 or more risk factors or treated atherosclerosis Troponin: -0- < or = normal limit Score: 5 Risk: 16.6% Discharge Plan Discharge Clinical Impression: Chest pain Patient Disposition: Home, Self-Care Instructions: Chest Pain (DC) Additional Instructions: Hoy lo evaluaron en el departamento de emergencias por dolor en el pecho. Salazar evaluaci?n no campbell mostrado signos de condiciones m?dicas que requieran bijan intervenci?n de emergencia en [place] momento; sin embargo, le recomendamos que realice un seguimiento con salazar m?dico de atenci?n primaria o salazar cardi?logo lo antes posible para realizar m?s pruebas howard paciente ambulatorio. Programe bijan darryl de seguimiento con salazar m?dico de atenci?n primaria lo antes posible. Regrese al departamento de emergencias si experimenta dolor en el pecho incontrolado o que empeora, dificultad para respirar, aturdimiento, sensaci?n de desmayo, p?rdida del conocimiento, n?useas, v?mitos o cualquier otro s?ntoma preocupante. Prescriptions: No Action hydralazine 25 mg tablet 25 mg PO TID Patient Comments: being started by PCP atorvastatin 10 mg tablet 10 mg PO BEDTIME lidocaine 5 % cream 1 applic topical QID PRN (Reason: Pain) thiamine HCl (vitamin B1) 100 mg tablet 100 mg PO QAM phenytoin sodium extended 100 mg capsule 300 mg PO QAM buspirone 30 mg tablet 30 mg PO BID mirtazapine 45 mg tablet 45 mg PO BEDTIME folic acid 1 mg tablet 1 mg PO QAM fluticasone propionate 50 mcg/actuation spray,suspension 1 spray intranasal DAILY loratadine 10 mg tablet 10 mg PO DAILY@0900 cholecalciferol (vitamin D3) 25 mcg (1,000 unit) tablet 25 mcg PO QAM amlodipine 10 mg tablet 10 mg PO BEDTIME acetaminophen [Tylenol] 325 mg capsule 650 mg PO Q8H PRN (Reason: fever or pain) docusate sodium 100 mg capsule 100 mg PO BID gabapentin 300 mg capsule 300 mg PO BEDTIME omeprazole 20 mg capsule,delayed release(DR/EC) 20 mg PO BID warfarin 4 mg tablet 4 mg PO SUMOTUWEFRSA warfarin 1 mg tablet 5 mg PO TH naltrexone 50 mg tablet 50 mg PO DAILY tamsulosin 0.4 mg capsule 0.4 mg PO BEDTIME 30 Days Qty: 30 1RF Referrals: [facility] [place] Cardi[facility] Services [Provider Group] Print Language: Croatian
--- NOTE | 2023-10-19 11:47 | ECG_ITS ---
Test Reason : cp Blood Pressure : / mmHG Vent. Rate : 057 BPM Atrial Rate : 057 BPM P-R Int : 140 ms QRS Dur : 078 ms QT Int : 424 ms P-R-T Axes : 037 010 042 degrees QTc Int : 412 ms Sinus bradycardia Otherwise normal ECG When compared with ECG of 05-SEP-2023 01:45, No significant change was found Referred By: Margret Lomeli Electronically Signed By:MARSHALL TATE MD
[2023-10-19 11:51] VITALS: BP 136/89; BP 139/79; PULSE 58; PULSE 90; RESP 16; TEMP 36.8; O2SAT 100; O2SAT 96; BMI 23.7
[2023-10-19 12:07] LABS: MANUAL DIFF FLAG NO
--- NOTE | 2023-10-19 12:15 | PC.NURSE ---
a&ox4. vss and up to date. nsr on the cardiac cath technician. pt comes into the ED w/ new onset left sided chest pain since this morning. chest pain is nonradiating. pt also complaining of headache. 18g placed by EMS SEISMIC ENGINEER in the right AC. labs obtained/sent to lab. ekg performed by tech. no sob/wob noted. respirations even and unlabored. call fontenot placed within reach.
[2023-10-19 12:16] LABS: INTERNATIONAL NORM RATIO 2.8 (0.9-1.1); Prothrombin Time 34.4 SEC (11.1-13.3)
[2023-10-19 12:17] LABS: Basophils Percent Auto 0.5 % (0-2); Eosinophils Absolute Auto 0.2 X10*3/uL (0.0-0.4); Eosinophils Percent Auto 4.9 % (0-4); Hematocrit 47.9 % (42.0-52.0); Hemoglobin 16.3 g/dl (14.0-18.0); Imm Gran Abs Auto 0.01 X10*3/uL (0.00-0.03); Imm Gran Pct Auto 0.3 % (0.0-0.4); Lymphocytes Absolute Auto 0.7 X10*3/uL (1.2-4.9); Lymphocytes Percent Auto 18.2 % (20-40); Mean Corpuscular Hemoglobin 33.4 pg (27.0-33.0); Mean Corpuscular Volume 98.2 fL (80.0-98.0); Mean Platelet Volume 10.4 fL (9.4-12.4); Monocytes Absolute Auto 0.3 X10*3/uL (0.1-1.2); Monocytes Percent Auto 8.4 % (2-11); Neutrophils Absolute Auto 2.5 x10*3/uL (2.0-8.3); Neutrophils Percent Auto 67.7 % (45-73); Platelet Count 114 X10*3/uL (160-400); Red Blood Count 4.88 X10*6/uL (4.60-5.80); Red Cell Distribution Width 12.4 % (11.0-16.0); White Blood Count 3.7 X10*3/uL (4.8-10.8)
[2023-10-19 12:25] LABS: Alanine Aminotransferase 20 U/L (0-40); Albumin Level 3.5 g/dL (3.5-5.0); Alkaline Phosphatase 60 U/L (39-117); Anion Gap 12 (12-20); Aspartate Amino Transferase 16 U/L (5-37); Bilirubin Total 0.3 mg/dL (0.0-1.0); Blood Urea Nitrogen 25 mg/dL (9-16); Calcium 8.8 mg/dL (8.4-10.2); Carbon Dioxide 20 mmol/L (22-29); Chloride 111 mmol/L (96-108); Creatinine Clr Calc Pharmacy 47.6; Estimated Glomerular Filt Rate 47; Glucose Random 101 mg/dL (60-115); Potassium 4.3 mmol/L (3.3-5.1); Sodium 139 mmol/L (135-145); Total Protein 6.5 g/dL (6.5-8.0)
[2023-10-19 12:29] LABS: Troponin-I High Sensitivity 7.2 ng/L (<3.5-35.0)
[2023-10-19 13:07] VITALS: BP 132/78; PULSE 54; RESP 15; O2SAT 96
[2023-10-19 13:39] VITALS: BP 134/83; PULSE 53; RESP 16; O2SAT 98
--- NOTE | 2023-10-19 13:39 | PC.NURSE ---
vss and up to date. nsr on the refrigeration supervisor. pt verbalizing that pain level decreased to a 2/10 at this time. VALENCIA has subsided. resting comfortably in no apparent distress. pt aware of plan of care in regards to repeat troponin due at 1500. respirations remain even and unlabored. call fontenot placed within reach.
--- NOTE | 2023-10-19 15:06 | PC.NURSE ---
repeat trop obtained/sent to lab.
[2023-10-19 15:35] LABS: Troponin-I High Sensitivity 8.2 ng/L (<3.5-35.0)
== END 2023-10-19 16:58 | disposition home or self-care (01) ==
PROVIDERS: Registered Nurse Emergency; Emergency Provider Emergency Medicine; PCP Family Medicine
DX: R07.9 Chest pain, unspecified (principal); I10 Essential (primary) hypertension; E78.5 Hyperlipidemia, unspecified
CPT/HCPCS: 36415; 71046; 74018; 80053; 84484; 85025; 85610; 93005; 99283; 99285

== ENCOUNTER → 2023-10-19 11:47 | Outpatient (BNV) | payer OTHER, SELFPAY | PROVIDERS: Emergency Provider Emergency Medicine; PCP Family Medicine; Visit Provider Internal Medicine Cardiovascular Disease | DX: R00.1 Bradycardia, unspecified (principal) | CPT/HCPCS: 93010 ==

== ENCOUNTER 2023-11-29 09:32 | Outpatient (AMB) | payer OTHER, SELFPAY ==
--- NOTE | 2023-11-29 09:47 | A.OFFVIS_ITS ---
Intake Intake Visit Reasons: Follow-up US/PSA Rusults Intake Note: Patient presents for follow up visit for BPH, PSA and ultrasound results Urology Medications: Tamsulosin? Blood Thinner: warfarin PVR: 102 ml's Auto Roller Required: Yes Auto Roller Name: MIK AREVALO-CMI Allergies ibuprofen [From Motrin] Allergy (Intermediate, Verified 11/29/23 21:14) UNKNOWN acetaminophen [From Percocet] Allergy (Verified 11/29/23 21:14) Unknown oxycodone Allergy (Verified 11/29/23 21:14) Unknown Medication List - Last Reconciled 11/29/23 by LAURY Hernandez-IRAJ acetaminophen (Tylenol) 650 mg PO Q8H PRN amlodipine 10 mg PO BEDTIME atorvastatin 10 mg PO BEDTIME buspirone 30 mg PO BID cholecalciferol (vitamin D3) 25 mcg PO QAM docusate sodium 100 mg PO BID fluticasone propionate 50 mcg/actuation 1 spray intranasal DAILY folic acid 1 mg PO QAM gabapentin 300 mg PO BEDTIME hydralazine 25 mg PO TID lidocaine 5% 1 appl topical QID PRN loratadine 10 mg PO DAILY@0900 mirtazapine 45 mg PO BEDTIME naltrexone 50 mg PO DAILY omeprazole 20 mg PO BID phenytoin sodium extended 300 mg PO QAM tamsulosin 0.4 mg PO BEDTIME 90 days thiamine HCl (vitamin B1) 100 mg PO QAM warfarin 5 mg PO TH warfarin 4 mg PO SUMOTUWEFRSA HPI HPI Comments History of Present Illness Details Chriss is a 68-year-old [place]-speaking male patient of Dr. Ngo. He has a past medical history of alcohol abuse, aortic aneurysm, chronic anticoagulation, chronic kidney disease, depression, DVT, GERD, hemorrhoids, mood disorder, PVD, and seizures. He presents to the office today for follow- up. Of note, patient was seen approximately 6 months ago as a new patient for ongoing lower urinary tract symptoms at which time a PSA was ordered as well as a retroperitoneal ultrasound. These results were reviewed with the patient today. Right kidney with no calculi or hydronephrosis. There is lower pole laterally 0.8 x 0.6 x 0.7 cm cortical cyst. 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 Left kidney with no calculi or hydronephrosis. There are 3 cysts identified laterally 1.7 x 1.8 x 1.5 cm and laterally in the upper pole 1.5 x 1.2 x 1.5 cm, there is 1.6 x 1.6 x 1.7 cm cyst in the middle aspect of the cortex. The urinary bladder is well distended with trabeculated wall. Bilateral ureteral jets are demonstrated. Pre void bladder volume is approximately 240 mL. Postvoid bladder volume is approximately 20 mL. In discussion with the patient today he reports noting improvement in urinary urgency, frequency, and weak urinary stream had been experiencing. He reports feeling Flomax has significantly improved his lower urinary tract symptoms. He otherwise denies incontinence, nocturia, hematuria, dysuria, foul-smelling ur ine, flank pain, fever, and or chills. In office urinalysis results reviewed with the patient today. PVR 102 mL. PSAs are as follows: 08/29 3.0, 12/03 3.6 PFSH Medical History Ascending aortic aneurysm Colon cancer screening Hemorrhoid Aortic aneurysm GERD (gastroesophageal reflux disease) Chronic anticoagulation Alcohol abuse Mood disorder Mood disorder due to a general medical condition Peripheral vascular disease DVT (deep venous thrombosis) Hyperhomocysteinemia CKD (chronic kidney disease) Depression Seizure Surgical History Hx of colonoscopy Hx of hernia repair Family History Paternal Grandmother Cancer Maternal Grandfather Cancer Paternal Aunt Cancer Social History Household Members: None Housing: Apartment Are you a primary child care lead teacher to a significant other at home: No Do you presently have visiting nurse or other home services: No Alcohol intake: current Alcohol intake frequency: holidays/special occasions only Alcohol type: beer Patient Tobacco Use Status: Never used Tobacco Advance Directives Date on File: 10/01/20 service: No Current occupational status: disabled Review of Systems Const All systems reviewed & are unremarkable except as noted in HPI and below Reports as per HPI Eyes Reports no additional complaints ENT Reports no additional complaints Card Reports as per HPI Resp Reports no additional complaints GI Reports as per HPI Reports as per HPI Musc Reports no additional complaints Neuro Reports as per [facility] Psych Reports as per HPI Endo Reports as per [facility] Patrick/Lymph Reports as per HPI Physical Exam Const General: cooperative, comfortable, no acute distress, well developed, alert and awake Orientation/consciousness: patient oriented x3 Limitations: no limitations HEENT Head: Yes normal to inspection, Yes normocephalic and Yes atraumatic Ears: hearing grossly normal bilaterally Eyes General: appearance normal, both eyes and all related structures Neck Neck: Yes normal visual inspection and Yes trachea midline Chest Chest palpation & inspection: normal inspection of the chest Resp Effort & Inspection: normal respiratory effort and able to speak in complete sentences Cardio Rate: regular rate GI Inspection: Yes normal to inspection Rectal Exam - Male: Yes deferred General: Yes no CVA tenderness Back/Spine/Pelvis Back: no CVA tenderness Skin General skin exam: no rashes or lesions noted Neuro General: patient oriented x3 Extrem General: Yes normal to inspection Psych Appearance: grossly normal and well kempt Mental Status: mental status grossly normal Speech and movement: Normal speech and movement present and Clear speech present Affect: normal affect Attitude: cooperative Thought process: Normal thought process present Thought content: Normal thought content present Insight: Fair insight present (Psych) Judgement: Fair judgement present (Psych) Office Procedures Post Void Residual Post Residual Void Post Void Residual (PVR): 102 70991-Gepk Void Residual by ultrasound Results AMB Urinalysis, Automated UA Leukoctes 0 Briana/uL Last Edit by Dorothy Schulte CMA on 11/29/23 10 :06 UA Nitrite Negative Last Edit by Dorothy Schulte CMA on 11/29/23 10: 06 UA Urobilinogen 0.2 mg/dL Last Edit by Dorothy Schulte CMA on 4 10:06 UA Protein 30 mg/dL Last Edit by Dorothy Schulte CMA on 11/29/23 10:0 6 UA pH 6.0 Last Edit by Dorothy Schulte CMA on 11/29/23 10:06 UA Blood 10 Daniel/uL Last Edit by Dorothy Schulte CMA on 11/29/23 10:06 UA Specific [place] 1.020 Last Edit by Dorothy Schulte [facility] on 10:06 UA Ketone Negative Last Edit by Dorothy Schulte CMA on 11/29/23 10:0 6 UA Bilirubin 0 mg/dL Last Edit by Dorothy Schulte CMA on 11/29/23 10: 06 UA Glucose 0 mg/dL Last Edit by Dorothy Schulte CMA on 11/29/23 10:06 Results Reviewed Results Reviewed: Laboratory Last Values Urine pH (Auto) 6.0 11/29/23 10:05 Specific [place] (Auto) 1.020 11/29/23 10:05 Urine Protein (Auto) 30 mg/dL 11/29/23 10:05 Glucose (UA)(Auto) 0 mg/dL 11/29/23 10:05 Urine Ketones (Auto) Negative 11/29/23 10:05 Urine Blood (Auto) 10 Daniel/uL 11/29/23 10:05 Urine Nitrite (Auto) Negative 11/29/23 10:05 Urine Bilirubin (Auto) 0 mg/dL 11/29/23 10:05 Urine Urobilinogen (Auto) 0.2 mg/dL 11/29/23 10:05 Leukocyte Esterase (Auto) 0 Briana/uL 11/29/23 10:05 Assessment & Plan Assessment & Plan (1) Weak urinary stream: Code(s): R39.12 - Poor urinary stream (2) Incomplete bladder emptying: Code(s): R33.9 - Retention of urine, unspecified (3) Renal cyst: Code(s): N28.1 - Cyst of kidney, acquired (4) Bladder trabeculation: Code(s): N32.89 - Other specified disorders of bladder Plan In office urinalysis results reviewed with the patient today; as noted above PVR 102 mL. Recent retroperitoneal ultrasound results reviewed with the patient today; as noted above. Discussed at length renal cyst and trabeculated bladder. Continue Flomax as discussed and prescribed; refill provided. Recent PSA results reviewed with the patient today; as noted above. Discussed at length potential causes for incomplete bladder emptying as well as affects of incomplete bladder emptying. Discussed near future in office cystoscopy for further assessment evaluation if symptoms persist and/or worsen. Follow-up in 3 months with PVR;or sooner with any issues, concerns, and or questions. Orders: Orders AMB Post Void Residual by ultrasound Today R33.9 - Retention of urine, unspecified AMB Urinalysis Automated Today R33.9 - Retention of urine, unspecified Medications: Changed From tamsulosin 0.4 mg PO BEDTIME 30 days 30 caps 1RF N40.1 - Benign prostatic hyperplasia with lower urinary tract symptoms, R35.1 - Nocturia To tamsulosin 0.4 mg PO BEDTIME 90 days 90 caps 1RF N40.1 - Benign prostatic hyperplasia with lower urinary tract symptoms, R35.1 - Nocturia Patient Instructions: The patient had an opportunity to ask questions regarding the treatment plan. All questions were answered. Physical exam, labs, and imaging were discussed and reviewed in detail. As well as risks, benefits, and discussion of treatment choices. No major barriers to understanding were identified. The patient expressed understanding and agreement with the above treatment plan. The patient was made aware they should contact our office by phone for worsening of their current condition, the appearance of new symptoms, or with any questions or concerns. Compliance is encouraged with any medications and follow up testing that is ordered. It is a privilege to be allowed the opportunity to participate in? your urological care.? Again, if you have any questions or concerns If you have any questions or concerns please do not hesitate to contact me. The office is [phone]. This note is constructed using voice recognition software. While every effort has been made to ensure accuracy rubber tile floor layer errors may have been included. Yours sincerely, MARCIA Hernandez Coding Level of Care Code Est Pt Level 4 (45442) Diagnoses Weak urinary stream R39.12 Incomplete bladder emptying R33.9 Renal cyst N28.1 Bladder trabeculation N32.89 CPT Codes Post Residual Void - PVR CPT Code: 42308-Fizh Void Residual by ultrasound ([id number]) Time Spent (min) 35
== END 2023-11-29 10:58 | disposition home or self-care (01) ==
LOC: HO.HUSH 09:32
PROVIDERS: PCP Family Medicine; Visit Provider Nurse Practitioner Family
DX: R39.12 Poor urinary stream (principal); R33.9 Retention of urine, unspecified; N28.1 Cyst of kidney, acquired; N32.89 Other specified disorders of bladder
CPT/HCPCS: 99214

== ENCOUNTER → 2023-11-29 09:32 | Outpatient (BNVA) | payer OTHER, SELFPAY | PROVIDERS: PCP Family Medicine; Visit Provider Nurse Practitioner Family ==

== ENCOUNTER 2023-11-29 10:20 | Outpatient (REF) | payer OTHER, SELFPAY | END 2023-11-29 10:21 | disposition home or self-care (01) | LOC: HO.10HDL 10:20 | PROVIDERS: Visit Provider Nurse Practitioner Family | DX: N40.0 Benign prostatic hyperplasia without lower urinary tract symptoms (principal); R39.12 Poor urinary stream; R33.9 Retention of urine, unspecified; N28.1 Cyst of kidney, acquired; N32.89 Other specified disorders of bladder; Z12.5 Encounter for screening for malignant neoplasm of prostate; Z79.01 Long term (current) use of anticoagulants; Z79.899 Other long term (current) drug therapy | CPT/HCPCS: 36415; 51798; 81003; 84153; 99212 ==

== ENCOUNTER 2023-12-12 11:25 | Outpatient (REF) | payer OTHER, SELFPAY ==
--- NOTE | ~2023-12-12 | XR_ITS ---
EXAMINATION: XR KNEE, LEFT CLINICAL INFORMATION: Left knee pain and posterior swelling. Patient states pain for 1 week, no injury. COMPARISON: None available. TECHNIQUE: Two views of the left knee. FINDINGS: Moderate joint effusion. Extensive vascular calcifications. Mild narrowing of the lateral compartment. XR/XR knee LT 2V IMPRESSION: Moderate joint effusion. Mild narrowing of the lateral compartment.
== END 2023-12-12 11:26 | disposition home or self-care (01) ==
LOC: HO.HHCX 11:25
PROVIDERS: Visit Provider Family Medicine
DX: M25.562 Pain in left knee (principal); G89.29 Other chronic pain
CPT/HCPCS: 73560

== ENCOUNTER 2024-01-04 15:52 | Outpatient (REF) | payer OTHER, SELFPAY ==
--- NOTE | ~2024-01-04 | US_ITS ---
EXAMINATION: US VENOUS DUPLEX LOWER EXTREMITY, BILATERAL CLINICAL INFORMATION: Pain. COMPARISON: Previous exam most recent September 2022. TECHNIQUE: Ultrasound of the deep veins is performed from the hip to the calf with compression sonography and color and pulse Doppler assessment. Spectral analysis with color-flow imaging is performed. FINDINGS: RIGHT: There is normal venous compression and respiratory variation and augmented flow. The visualized common femoral vein, superficial femoral vein, profunda femoral vein, popliteal vein, and the trifurcation region shows no evidence of deep venous thrombosis. There is no significant popliteal fossa cyst. LEFT: There is thrombus seen in the left common femoral, superficial femoral and popliteal veins. There is nonocclusive thrombus seen in the left common femoral vein. This is linear and echogenic and against the wall, similar to September 2022 exam, and may be chronic. There is nearly occlusive thrombus of the left superficial femoral vein. This has mixed echotexture and it is uncertain whether this is acute or chronic. There is nonocclusive thrombus hypoechoic thrombus in the left popliteal vein. This appears compared to September 2022 exam and again uncertain whether this is acute or chronic. The left posterior tibial and peroneal veins are patent. Left profunda femoral vein is patent. There is no Daniel's cyst. US/US venous duplex LE BI IMPRESSION: No DVT demonstrated in the right lower extremity. Left common femoral, superficial femoral and popliteal vein DVT. Left common femoral thrombus is nonocclusive, linear and echogenic, similar-appearing to September 2022 exam, and may be chronic. It is uncertain is superficial femoral and popliteal vein thrombus is acute or chronic. Short-term follow-up exam in several days may be helpful to evaluate for interval change. Findings were communicated to JOSE Frederick by telephone on 01/04/2024 at 1527 hours
== END 2024-01-04 15:53 | disposition home or self-care (01) ==
LOC: HO.US 15:52
PROVIDERS: PCP Family Medicine; Visit Provider Emergency Medicine
DX: Z13.89 Encounter for screening for other disorder (principal)
CPT/HCPCS: 93970

== ENCOUNTER 2024-01-04 16:37 | Emergency (ER) | payer OTHER, SELFPAY ==
[2024-01-04 16:41] VITALS: BP 152/96; PULSE 67; RESP 16; TEMP 36.4; O2SAT 97; BMI 24.1
--- NOTE | 2024-01-04 16:42 | ED_ITS ---
HPI - General Adult General Chief complaint: Extremity Problem Stated complaint: blood clot Time Seen by Provider: 01/04/24 20:38 Source: patient Mode of arrival: ambulatory Limitations: no limitations History of Present Illness HPI narrative: 68-year-old male past history of hypertension hyperlipidemia aortic stenosis has history of aortic aneurysm on Coumadin history of DVT that is chronic on the left who presents to emergency room after being seen walk-in clinic. Patient had a bilateral ultrasound which showed an old DVT to his left leg he states that today he noticed some cramping to his right calf. The pain has since resolved he denies any falls or injuries denies chest pain cough fever or shortness of breath. Patient denies any falls or injuries to explain the pain. He has never had a blood clot to the leg Related Data Home Medications Medication Instructions Recorded Confirmed atorvastatin 10 mg tablet 10 mg PO BEDTIME 08/06/20 11/29/23 buspirone 30 mg tablet 30 mg PO BID 08/06/20 11/29/23 cholecalciferol (vitamin D3) 25 25 mcg PO QAM 08/06/20 11/29/23 mcg (1,000 unit) tablet fluticasone propionate 50 1 spray intranasal DAILY 08/06/20 11/29/23 mcg/actuation nasal spray,suspension folic acid 1 mg tablet 1 mg PO QAM 08/06/20 11/29/23 lidocaine 5 % topical cream 1 applic topical QID PRN Pain 08/06/20 11/29/23 loratadine 10 mg tablet 10 mg PO DAILY@0900 08/06/20 11/29/23 mirtazapine 45 mg tablet 45 mg PO BEDTIME 08/06/20 11/29/23 phenytoin sodium extended 100 mg 300 mg PO QAM 08/06/20 11/29/23 capsule thiamine HCl (vitamin B1) 100 mg 100 mg PO QAM 08/06/20 11/29/23 tablet naltrexone 50 mg tablet 50 mg PO DAILY 11/13/20 11/29/23 hydralazine 25 mg tablet 25 mg PO TID 01/07/23 11/29/23 acetaminophen 325 mg capsule 650 mg PO Q8H PRN fever or pain 10/19/23 11/29/23 (Tylenol) amlodipine 10 mg tablet 10 mg PO BEDTIME 10/19/23 11/29/23 docusate sodium 100 mg capsule 100 mg PO BID 10/19/23 11/29/23 gabapentin 300 mg capsule 300 mg PO BEDTIME pain 10/19/23 11/29/23 omeprazole 20 mg capsule,delayed 20 mg PO BID gerd 10/19/23 11/29/23 release warfarin 1 mg tablet 5 mg PO TH 10/19/23 11/29/23 warfarin 4 mg tablet 4 mg PO SUMOTUWEFRSA 10/19/23 11/29/23 Previous Rx's Medication Instructions Recorded tamsulosin 0.4 mg capsule 0.4 mg PO BEDTIME 90 days #90 caps 11/29/23 Allergies Allergy/AdvReac Type Severity Reaction Status Date / Time ibuprofen [From Motrin] Allergy Intermediate UNKNOWN Verified 11/29/23 21:14 acetaminophen [From Percocet] Allergy Unknown Verified 11/29/23 21:14 oxycodone Allergy Unknown Verified 11/29/23 21:14 Review of Systems 2 Review of Systems: Review of systems: General: Patient denies any fever chills recent illness or falls Musculoskeletal: Denies back pain or body aches or other injuries HEENT: denies headache, runny nose, ear pain Respiratory: denies shortness of breath, cough Cardiovascular: no chest pain or palpitations : denies dysuria, frequency Abdomen: no nausea vomiting denies abdominal pain Extremities: no swelling, right calf pain Skin: no diaphoresis Yes all other systems are reviewed and are negative [facility] [place] Past Medical History Medical History Ascending aortic aneurysm Colon cancer screening Hemorrhoid Aortic aneurysm GERD (gastroesophageal reflux disease) Chronic anticoagulation Alcohol abuse Mood disorder Mood disorder due to a general medical condition Peripheral vascular disease DVT (deep venous thrombosis) Hyperhomocysteinemia CKD (chronic kidney disease) Depression Seizure Surgical History Hx of colonoscopy Hx of hernia repair Family History Family History Paternal Grandmother Cancer Maternal Grandfather Cancer Paternal Aunt Cancer Social History Social History Household Members: None Housing: Apartment Are you a primary care professionals to a significant other at home: No Do you presently have visiting nurse or other home services: No Alcohol intake: current Alcohol intake frequency: holidays/special occasions only Alcohol type: beer Patient Tobacco Use Status: Never used Tobacco Advance Directives Date on File: 10/01/20 service: No Current occupational status: disabled Physical Exam ED Vital Signs: Vital Signs - 24 hr 01/04/24 16:41 Temperature 97.6 F Pulse Rate 67 Respiratory Rate 16 Blood Pressure 152/96 H Pulse Oximetry 97 Oxygen Delivery Method Room Air BMI result Body Mass Index 24.1 General: Well-appearing well-nourished in no signs of distress HEENT: Normocephalic atraumatic Neck: No signs of JVD, no masses no tenderness or lymphadenopathy Cardiovascular: Regular rate and rhythm Respiratory: Clear to auscultation bilaterally Abdomen: Soft nontender no masses Extremities: Normal pedal pulses no signs of edema pain is not reproducible there is no signs of cellulitis patient has normal range of motion to both legs Skin: Dry warm no rashes Back: No tenderness full ROM Course Course Course Narrative: This is an RME: Additional HPI, ROS, PE not included below will be deferred to primary provider. This is a 68-year-old [place]an-speaking male with history of AAA, aortic stenosis, GERD, CKD, DVT on warfarin, PVD, mood disorder, and alcohol abuse presenting to the ED with complaints of right calf pain. He had an ultrasound performed today which has not yet been read by radiologist. He has no chest pain or shortness of breath Plan: Labs Received call from [facility] revealing no evidence of acute thrombus however recommending ultrasound repeat in the next few days. Medical Decision Making Medical Decision Making [facility] Narrative: Patient underwent ultrasound and labs everything looks normal patient has no signs of infection his pain has since resolved do feel comfortable with patient going home Differential Diagnosis Differential Diagnoses: The differential diagnosis associated with the presentation includes DVT calf strain cellulitis infection musculoskeletal strain Admission/Observation Consideration of admission/observation: Escalation of care including admission/observation considered Lab Data [facility] Lab Attestation statement: I reviewed the patient's lab results. 01/04/24 17:05 01/04/24 17:05 Labs: Lab Results 01/04/24 Range/Units 17:05 WBC 5.6 (4.8-10.8) X10*3/uL RBC 4.83 (4.60-5.80) X10*6/uL Hgb 16.3 (14.0-18.0) g/dl Hct 48.5 (42.0-52.0) % MCV 100.4 H (80.0-98.0) fL MCH 33.7 H (27.0-33.0) pg MCHC 33.6 (31.0-36.0) g/dl RDW 12.0 (11.0-16.0) % Plt Count 150 L D (160-400) X10*3/uL MPV 10.0 (9.4-12.4) fL Immature Gran % (Auto) 0.2 (0.0-0.4) % Neut % (Auto) 67.0 (45-73) % Lymph % (Auto) 17.1 L (20-40) % [place] % (Auto) 10.4 (2-11) % Eos % (Auto) 4.6 H (0-4) % Baso % (Auto) 0.7 (0-2) % Lymph # (Auto) 1.0 L (1.2-4.9) X10*3/uL [place] # (Auto) 0.6 (0.1-1.2) X10*3/uL Eos # (Auto) 0.3 (0.0-0.4) X10*3/uL Baso # (Auto) 0.0 (0.0-0.2) X10*3/uL Abs Immat Gran (auto) 0.01 (0.00-0.03) X10*3/uL Absolute Neuts (auto) 3.8 (2.0-8.3) x10*3/uL Absolute Nucleated RBC 0.000 (0.0-0.012) X10*3/uL Nucleated RBC % (auto) 0.0 (0.0-0.2) /100WBC PT 34.9 H (11.1-13.3) SEC INR 2.9 H (0.9-1.1) APTT 40.9 H (26.0-36.8) SEC Sodium 139 (135-145) mmol/L Potassium 4.9 (3.3-5.1) mmol/L Chloride 109 H (96-108) mmol/L Carbon Dioxide 25 (22-29) mmol/L Anion Gap 10 L (12-20) BUN 26 H (9-16) mg/dL Creatinine 1.60 H (0.5-1.4) mg/dL Estim Creat Clear Calc 42.9 Estimated GFR 43 Random Glucose 103 (60-115) mg/dL Calcium 9.7 D (8.4-10.2) mg/dL Magnesium 2.0 (1.6-2.6) mg/dL Total Bilirubin 0.2 (0.0-1.0) mg/dL Direct Bilirubin < 0.2 (0.0-0.5) mg/dL AST 18 (5-37) U/L ALT 20 (0-40) U/L Alkaline Phosphatase 74 (39-117) U/L Total Protein 7.0 (6.5-8.0) g/dL Albumin 3.7 (3.5-5.0) g/dL Independent Interpretation I performed an independent interpretation of an: Ultrasound Radiology Impression Discussion of test interpretation with radiology: I have reviewed the radiologist's reading. External Record Review External record reviewed: Inpatient record, Outpatient record, Prior outpatient labs and Prior outpatient radiology Discharge Plan Discharge Clinical Impression: Current use of anticoagulant therapy, Pain of right calf Patient Disposition: Home, Self-Care Instructions: Leg Pain (ED), Leg Cramps (ED) Additional Instructions: You were seen today for right calf pain. You had an ultrasound labs which were all unremarkable. Please call follow up with her doctor if you have any other concerns please do not hesitate to come back to emergency department. Prescriptions: No Action hydralazine 25 mg tablet 25 mg PO TID Patient Comments: being started by PCP atorvastatin 10 mg tablet 10 mg PO BEDTIME lidocaine 5 % cream 1 applic topical QID PRN (Reason: Pain) thiamine HCl (vitamin B1) 100 mg tablet 100 mg PO QAM phenytoin sodium extended 100 mg capsule 300 mg PO QAM buspirone 30 mg tablet 30 mg PO BID mirtazapine 45 mg tablet 45 mg PO BEDTIME folic acid 1 mg tablet 1 mg PO QAM fluticasone propionate 50 mcg/actuation spray,suspension 1 spray intranasal DAILY loratadine 10 mg tablet 10 mg PO DAILY@0900 cholecalciferol (vitamin D3) 25 mcg (1,000 unit) tablet 25 mcg PO QAM amlodipine 10 mg tablet 10 mg PO BEDTIME acetaminophen [Tylenol] 325 mg capsule 650 mg PO Q8H PRN (Reason: fever or pain) docusate sodium 100 mg capsule 100 mg PO BID gabapentin 300 mg capsule 300 mg PO BEDTIME omeprazole 20 mg capsule,delayed release(DR/EC) 20 mg PO BID warfarin 4 mg tablet 4 mg PO SUMOTUWEFRSA warfarin 1 mg tablet 5 mg PO TH naltrexone 50 mg tablet 50 mg PO DAILY tamsulosin 0.4 mg capsule 0.4 mg PO BEDTIME 90 Days Qty: 90 1RF
[2024-01-04 17:09] LABS: MANUAL DIFF FLAG NO
[2024-01-04 17:10] LABS: Basophils Percent Auto 0.7 % (0-2); Eosinophils Absolute Auto 0.3 X10*3/uL (0.0-0.4); Eosinophils Percent Auto 4.6 % (0-4); Hematocrit 48.5 % (42.0-52.0); Hemoglobin 16.3 g/dl (14.0-18.0); Imm Gran Abs Auto 0.01 X10*3/uL (0.00-0.03); Imm Gran Pct Auto 0.2 % (0.0-0.4); Lymphocytes Percent Auto 17.1 % (20-40); Mean Corpuscular HGB Conc 33.6 g/dl (31.0-36.0); Mean Corpuscular Hemoglobin 33.7 pg (27.0-33.0); Mean Corpuscular Volume 100.4 fL (80.0-98.0); Monocytes Absolute Auto 0.6 X10*3/uL (0.1-1.2); Monocytes Percent Auto 10.4 % (2-11); Neutrophils Absolute Auto 3.8 x10*3/uL (2.0-8.3); Platelet Count 150 X10*3/uL (160-400); Red Blood Count 4.83 X10*6/uL (4.60-5.80); White Blood Count 5.6 X10*3/uL (4.8-10.8)
[2024-01-04 17:16] LABS: INTERNATIONAL NORM RATIO 2.9 (0.9-1.1); Prothrombin Time 34.9 SEC (11.1-13.3)
[2024-01-04 17:18] LABS: Partial Thromboplastin Time 40.9 SEC (26.0-36.8)
[2024-01-04 17:26] LABS: Alanine Aminotransferase 20 U/L (0-40); Albumin Level 3.7 g/dL (3.5-5.0); Alkaline Phosphatase 74 U/L (39-117); Anion Gap 10 (12-20); Aspartate Amino Transferase 18 U/L (5-37); Bilirubin Direct < 0.2 mg/dL (0.0-0.5); Bilirubin Total 0.2 mg/dL (0.0-1.0); Blood Urea Nitrogen 26 mg/dL (9-16); Calcium 9.7 mg/dL (8.4-10.2); Carbon Dioxide 25 mmol/L (22-29); Chloride 109 mmol/L (96-108); Creatinine Clr Calc Pharmacy 42.9; Estimated Glomerular Filt Rate 43; Glucose Random 103 mg/dL (60-115); Potassium 4.9 mmol/L (3.3-5.1); Sodium 139 mmol/L (135-145)
== END 2024-01-04 20:50 | disposition home or self-care (01) ==
PROVIDERS: Physician Assistant Medical; Emergency Provider Student in an Organized Health Care Education/Training Program; PCP Family Medicine
DX: M79.605 Pain in left leg (principal); Z86.718 Personal history of other venous thrombosis and embolism; Z79.01 Long term (current) use of anticoagulants; Z79.899 Other long term (current) drug therapy; R25.2 Cramp and spasm
CPT/HCPCS: 36415; 80048; 80076; 83735; 85025; 85610; 85730; 93970; 99281; 99283

== ENCOUNTER 2024-02-27 09:19 | Outpatient (AMB) | payer OTHER, SELFPAY ==
--- NOTE | 2024-02-27 09:20 | A.OFFVIS_ITS ---
Intake Visit Reasons: 3m/PVR Intake Note: Patient presents for follow up visit for Incomplete Bladder Emptying Urology Medications: Tamsulosin Blood Thinner: warfarin PVR: 33ml's Product Lister Required: Yes Product Lister Name: Kendall [id number] Accompanied by: Self / Same As Patient Allergies ibuprofen [From Motrin] Allergy (Intermediate, Verified 02/27/24 09:44) UNKNOWN acetaminophen [From Percocet] Allergy (Verified 02/27/24 09:44) Unknown oxycodone Allergy (Verified 02/27/24 09:44) Unknown Medication List - Last Reconciled 02/27/24 by MARCIA Hernandez acetaminophen (Tylenol) 650 mg PO Q8H PRN amlodipine 10 mg PO BEDTIME atorvastatin 10 mg PO BEDTIME buspirone 30 mg PO BID cholecalciferol (vitamin D3) (Vitamin D3) 50 mcg PO DAILY docusate sodium 100 mg PO BID fluticasone propionate 50 mcg/actuation 1 spray intranasal DAILY folic acid 1 mg PO QAM gabapentin 300 mg PO BEDTIME hydralazine 25 mg PO TID hydralazine 50 mg PO TID lidocaine 5% 1 appl topical QID PRN loratadine 10 mg PO DAILY@0900 mirtazapine 45 mg PO BEDTIME naltrexone 50 mg PO DAILY omeprazole 20 mg PO BID phenytoin sodium extended 300 mg PO QAM terazosin 5 mg PO BEDTIME 30 days thiamine HCl (vitamin B1) 100 mg PO QAM warfarin 5 mg PO TH warfarin 4 mg PO SUMOTUWEFRSA HPI Comments Details: Chriss is a 68-year-old Botswanan-speaking male patient of Dr. Ngo. He has a past medical history of alcohol abuse, aortic aneurysm, chronic anticoagulation, chronic kidney disease, depression, DVT, GERD, hemorrhoids, mood disorder, PVD, and seizures. He presents to the office today for follow-up of his lower urinary tract symptoms. In discussion with the patient today he reports he continues with urinary frequency. He discusses compliance with 0.4 mg of Flomax daily and does not feel this is helped with his urinary frequency. Previous workup has included a retroperitoneal ultrasound and PSA. Retroperitoneal ultrasound noting right kidney with no calculi or hydronephrosis. There is lower pole laterally 0.8 x 0.6 x 0.7 cm cortical cyst. 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 Left kidney with no calculi or hydronephrosis. There are 3 cysts identified laterally 1.7 x 1.8 x 1.5 cm and laterally in the upper pole 1.5 x 1.2 x 1.5 cm, there is 1.6 x 1.6 x 1.7 cm cyst in the middle aspect of the cortex. The urinary bladder is well distended with trabeculated wall. Bilateral ureteral jets are demonstrated. Pre void bladder volume is approximately 240 mL. Postvoid bladder volume is approximately 20 mL. Prostate volume is approximately 30 mL. In office urinalysis results reviewed with the patient today. PVR 33 mL. In review of previous postvoid residuals it does appear they are decreasing. Patient reports he had been feeling Flomax was helpful however more recently over the last 4-6 weeks feels it has not. Discussed increase in dosage verses trial of terazosin. He otherwise denies incontinence, nocturia, hematuria, dysuria, foul-smelling urine, flank pain, fever, and or chills. PSAs are as follows: 08/29 3.0, 12/03 3.6 PFSH Medical History Ascending aortic aneurysm Colon cancer screening Hemorrhoid Aortic aneurysm GERD (gastroesophageal reflux disease) Chronic anticoagulation Alcohol abuse Mood disorder Mood disorder due to a general medical condition Peripheral vascular disease DVT (deep venous thrombosis) Hyperhomocysteinemia CKD (chronic kidney disease) Depression Seizure Surgical History Hx of colonoscopy Hx of hernia repair Family History Paternal Grandmother Cancer Maternal Grandfather Cancer Paternal Aunt Cancer Social History Household Members: None Housing: Apartment Are you a primary career services officer to a significant other at home: No Do you presently have visiting nurse or other home services: No Alcohol intake: current Alcohol intake frequency: holidays/special occasions only Alcohol type: beer Patient Tobacco Use Status: Never used Tobacco Advance Directives Date on File: 10/01/20 service: No Current occupational status: disabled Review of Systems Const All systems reviewed & are unremarkable except as noted in HPI and below Reports as per HPI Eyes Reports no additional complaints ENT Reports no additional complaints Card Reports as per [facility] Resp Reports no additional complaints GI Reports as per [facility] Reports as per [facility] Musc Reports no additional complaints Neuro Reports as per [facility] Psych Reports as per [facility] Endo Reports as per [facility] Patrick/Lymph Reports as per [facility] Physical Exam Const General: cooperative, healthy appearing, comfortable, no acute distress, well developed, alert and awake Nutritional Appearance: average body habitus Orientation/consciousness: patient oriented x3 Limitations: no limitations HEENT Head: Yes normal to inspection, Yes normocephalic and Yes atraumatic Ears: hearing grossly normal bilaterally Eyes General: appearance normal, both eyes and all related structures Neck Neck: Yes normal visual inspection and Yes trachea midline Chest Chest palpation & inspection: normal inspection of the chest Resp Effort & Inspection: normal respiratory effort and able to speak in complete sentences Cardio Rate: regular rate GI Inspection: Yes normal to inspection Rectal Exam - Male: Yes deferred General: Yes no CVA tenderness Back/Spine/Pelvis Back: no CVA tenderness Skin General skin exam: no rashes or lesions noted Neuro General: patient oriented x3 Extrem General: Yes normal to inspection Psych Appearance: grossly normal and well kempt Mental Status: mental status grossly normal Speech and movement: Normal speech and movement present and Clear speech present Affect: normal affect Attitude: cooperative Thought process: Normal thought process present Thought content: Normal thought content present Insight: Fair insight present (Psych) Judgement: Fair judgement present (Psych) Office Procedures Post Void Residual Post Residual Void Post Void Residual (PVR): 33 [id number] Void Residual by ultrasound Results AMB Urinalysis, Automated UA Leukoctes 0 Briana/uL Last Edit by Ruben Morales on 02/27/24 09:36 UA Nitrite Negative Last Edit by Trailerpopbranden on 02/27/24 09:36 UA Urobilinogen 0.2 mg/dL Last Edit by BankFacil on 02/27/24 09:36 UA Protein 30 mg/dL Last Edit by CreativeWorx Carmen on 02/27/24 09:36 UA pH 6.0 Last Edit by CreativeWor[employer] Carmen on 02/27/24 09:36 UA Blood 0 Daniel/uL Last Edit by [employer]Wor[employer] Carmen on 02/27/24 09:36 UA Specific [place] 1.010 Last Edit by Trailerpopbranden on 02/27/24 09:36 UA Ketone Negative Last Edit by Fritzcoltonrose marie Mroales on 02/27/24 09:36 UA Bilirubin 0 mg/dL Last Edit by Ruben Morales on 02/27/24 09:36 UA Glucose 0 mg/dL Last Edit by Ruben Morales on 02/27/24 09:36 Results Reviewed Results Reviewed: Laboratory Last Values Urine pH (Auto) 6.0 02/27/24 09:22 Specific [place] (Auto) 1.010 02/27/24 09:22 Urine Protein (Auto) 30 mg/dL 02/27/24 09:22 Glucose (UA)(Auto) 0 mg/dL 02/27/24 09:22 Urine Ketones (Auto) Negative 02/27/24 09:22 Urine Blood (Auto) 0 Daniel/uL 02/27/24 09:22 Urine Nitrite (Auto) Negative 02/27/24 09:22 Urine Bilirubin (Auto) 0 mg/dL 02/27/24 09:22 Urine Urobilinogen (Auto) 0.2 mg/dL 02/27/24 09:22 Leukocyte Esterase (Auto) 0 Briana/uL 02/27/24 09:22 Assessment & Plan Assessment & Plan (1) Bladder trabeculation: Code(s): N32.89 - Other specified disorders of bladder Category: Medical (2) Renal cyst: Code(s): N28.1 - Cyst of kidney, acquired Category: Medical (3) Urinary frequency: Code(s): R35.0 - Frequency of micturition Category: Medical (4) Incomplete bladder emptying: Code(s): R33.9 - Retention of urine, unspecified Category: Medical Plan In office urinalysis results reviewed with the patient today; as noted above. PVR 33 mL. Stop Flomax. Start terazosin 5 mg at bedtime. Start finasteride 5 mg at bedtime. Discussed bladder triggers/irritants. Discussed renal cyst and trabeculated bladder. Discussed near future in office cystoscopy for further assessment evaluation if symptoms persist and/or worsen. Follow-up in 6-8 weeks with PVR; or sooner with any issues, concerns, and or questions. Orders: Orders AMB Urinalysis Automated Today Z13.9 - Encounter for screening, unspecified AMB Post Void Residual by ultrasound Today R33.9 - Retention of urine, unspecified Medications: New terazosin 5 mg PO BEDTIME 30 caps 1RF 30 days N40.1 - Benign prostatic hyperplasia with lower urinary tract symptoms, R35.0 - Frequency of micturition finasteride 5 mg PO DAILY 90 tabs 1RF 90 days N40.1 - Benign prostatic hyperplasia with lower urinary tract symptoms, R33.9 - Retention of urine, unspecified Discontinued tamsulosin Discontinued Reason: Doctor's Order 0.4 mg PO BEDTIME 90 days 90 caps 1RF N40.1 - Benign prostatic hyperplasia with lower urinary tract symptoms, R35.1 - Nocturia Patient Instructions: The patient had an opportunity to ask questions regarding the treatment plan. All questions were answered. Physical exam, labs, and imaging were discussed and reviewed in detail. As well as risks, benefits, and discussion of treatment choices. No major barriers to understanding were identified. The patient expressed understanding and agreement with the above treatment plan. The patient was made aware they should contact our office by phone for worsening of their current condition, the appearance of new symptoms, or with any questions or concerns. Compliance is encouraged with any medications and follow up testing that is ordered. It is a privilege to be allowed the opportunity to participate in? your urological care.? Again, if you have any questions or concerns If you have any questions or concerns please do not hesitate to contact me. The office is [phone]. This note is constructed using voice recognition software. While every effort has been made to ensure accuracy filter cleaner errors may have been included. Yours sincerely, MARCIA Hernandez Coding Level of Care Code Est Pt Level 4 (20519) Diagnoses Bladder trabeculation N32.89 Renal cyst N28.1 Urinary frequency R35.0 Incomplete bladder emptying R33.9 CPT Codes Post Residual Void - PVR CPT Code: 44877-[id number] Void Residual by ultrasound ([id number])
== END 2024-02-27 09:45 | disposition home or self-care (01) ==
PROVIDERS: PCP Family Medicine; Visit Provider Nurse Practitioner Family
DX: N32.89 Other specified disorders of bladder (principal); N28.1 Cyst of kidney, acquired; R35.0 Frequency of micturition; R33.9 Retention of urine, unspecified; Z13.9 Encounter for screening, unspecified
CPT/HCPCS: 99214

== ENCOUNTER → 2024-02-27 09:19 | Outpatient (BNVA) | payer OTHER, SELFPAY | PROVIDERS: PCP Family Medicine; Visit Provider Nurse Practitioner Family | DX: R35.0 Frequency of micturition (principal); N28.1 Cyst of kidney, acquired; R33.9 Retention of urine, unspecified; N32.89 Other specified disorders of bladder; Z79.01 Long term (current) use of anticoagulants; Z79.899 Other long term (current) drug therapy | CPT/HCPCS: 51798; 81003; 99212 ==

== ENCOUNTER 2024-03-20 09:12 | Outpatient (AMB) | payer OTHER, SELFPAY ==
[2024-03-20 09:57] VITALS: BP 114/82; PULSE 72; BMI 24.3
--- NOTE | 2024-03-20 09:57 | A.OFFVIS_ITS ---
Vital Signs 03/20/24 09:57 Height 5 ft 9 in Weight 164 lb 7.437 oz BMI 24.3 BP 114/82 Blood Pressure Location Lt brachial Position Sitting Pulse 72 Pulse Source Pulse Oximeter Intake Visit Reasons: 6 mth f/up Director Operating Room Required: Yes Director Operating Room Language: Decontaminator Name: [id number] elizabeth Allergies ibuprofen [From Motrin] Allergy (Intermediate, Verified 03/20/24 10:01) UNKNOWN acetaminophen [From Percocet] Allergy (Verified 03/20/24 10:01) Unknown oxycodone Allergy (Verified 03/20/24 10:01) Unknown Medication List - Last Reconciled 03/20/24 by FELA Maldonado acetaminophen (Tylenol) 650 mg PO Q8H PRN amlodipine 10 mg PO BEDTIME atorvastatin 10 mg PO BEDTIME buspirone 30 mg PO BID cholecalciferol (vitamin D3) (Vitamin D3) 50 mcg PO DAILY docusate sodium 100 mg PO BID finasteride 5 mg PO DAILY 90 days fluticasone propionate 50 mcg/actuation 1 spray intranasal DAILY folic acid 1 mg PO QAM gabapentin 300 mg PO BEDTIME hydralazine 25 mg PO TID hydralazine 50 mg PO TID lidocaine 5% 1 appl topical QID PRN loratadine 10 mg PO DAILY@0900 mirtazapine 45 mg PO BEDTIME naltrexone 50 mg PO DAILY omeprazole 20 mg PO BID phenytoin sodium extended 300 mg PO QAM terazosin 5 mg PO BEDTIME 30 days thiamine HCl (vitamin B1) 100 mg PO QAM warfarin 5 mg PO TH warfarin 4 mg PO SUMOTUWEFRSA HPI HPI 6 mth f/up: Details: Chriss is a 68-year-old male with past medical history hypertension, hyperlipidemia, aortic stenosis, ascending aortic aneurysm who presents for follow-up. Today he reports he has been ill for the last few days. He had a fever yesterday and is still coughing today. He is wearing a mask at the visit. Otherwise he has been doing well since his last visit in September. Denies having any chest discomfort at rest or with activity. He denies shortness of breath, palpitations, dizziness, presyncope, syncope, PND, orthopnea or edema. He has been taking his medications as directed. No bleeding issues with Coumadin use. Certified staff interpreter used. [facility] Medical History Ascending aortic aneurysm Colon cancer screening Hemorrhoid Aortic aneurysm GERD (gastroesophageal reflux disease) Chronic anticoagulation Alcohol abuse Mood disorder Mood disorder due to a general medical condition Peripheral vascular disease DVT (deep venous thrombosis) Hyperhomocysteinemia CKD (chronic kidney disease) Depression Seizure Surgical History Hx of colonoscopy Hx of hernia repair Family History Paternal Grandmother Cancer Maternal Grandfather Cancer Paternal Aunt Cancer Social History Household Members: None Housing: Apartment Are you a primary insurance healthcare consultant to a significant other at home: No Do you presently have visiting nurse or other home services: No Alcohol intake: current Alcohol intake frequency: holidays/special occasions only Alcohol type: beer Patient Tobacco Use Status: Never used Tobacco Advance Directives Date on File: 10/01/20 service: No Current occupational status: disabled Review of Systems Const All systems reviewed & are unremarkable except as noted in HPI and below ENT Denies dizziness Card Denies chest pain, Denies chest pain at rest, Denies chest pain with activity, Denies rapid heart rate, Denies pedal edema, Denies edema, Denies leg edema, Denies lightheadedness, Denies palpitations, Denies dyspnea, Denies dyspnea on exertion and Denies orthopnea Resp Details: fever yesterday Reports cough, Denies dyspnea and Denies dyspnea on exertion GI Denies hematochezia and Denies change in stool character Musc Denies abnormal gait, Denies limited range of motion, Denies muscle cramps, Denies muscle weakness, Denies numbness, Denies radiating pain into limb, Denies stiffness and Denies tingling Neuro Denies abnormal gait, Denies dizziness, Denies numbness and Denies tingling Endo Denies palpitations Physical Exam Vital Signs: Last Vital Signs Pulse 72 03/20/24 09:57 BP 114/82 03/20/24 09:57 BMI result Body Mass Index 24.3 Const General: cooperative, comfortable and no acute distress Orientation/consciousness: patient oriented x3 Neck Neck: Yes normal visual inspection Resp Effort & Inspection: normal respiratory effort Auscultation: clear to auscultation bilaterally, no rales, no rhonchi and no wheezes Cardio Jugular venous distension: no JVD Rate: regular rate Rhythm: regular rhythm Heart sounds: S1 normal heart sound present, S2 normal heart sound present, no murmurs and no rubs Neuro General: patient oriented x3 Extrem General: Yes normal to inspection and No no pedal edema Psych Appearance: grossly normal Mental Status: mental status grossly normal Speech and movement: Normal speech and movement present Assessment & Plan Assessment & Plan (1) Non-rheumatic aortic stenosis: Code(s): I35.0 - Nonrheumatic aortic (valve) stenosis Category: Medical Plan: History of aortic stenosis and ascending aortic aneurysm. CTA of the chest done 2019 reported as showing ascending aorta 4.2/4.3 cm. Echocardiogram done 09/05/2023 shows EF 65-70%, mild LVH, grade 1 diastolic dysfunction, [id number] aortic stenosis, possible bicuspid aortic valve, mildly dilated ascending aorta 4.2 cm. Today he does have a viral type illness. Besides this he has not had any concerning symptoms of chest pains or shortness of breath. Blood pressure currently well controlled. He is on statin therapy. Instructed on activity as tolerated but avoid lifting over 40 lb. Will arrange for repeat echocardiogram 1 year from last, due 08/2024. Cardiology follow-up visit when results are available. Patient is agreeable to this plan. (2) Ascending aortic aneurysm: Code(s): I71.21 - Aneurysm of the ascending aorta, without rupture Category: Medical Qualifiers: Presence of rupture: without rupture Qualified Code(s): I71.21 - Aneurysm of the ascending aorta, without rupture Plan: As above (3) Hypertension: Code(s): I10 - Essential (primary) hypertension Category: Medical Plan: Well controlled. No med changes made. He is currently on hydralazine and amlodipine for blood pressure control. (4) Hyperlipidemia: Code(s): E78.5 - Hyperlipidemia, unspecified Category: Medical Plan: LDL goal less than 100, ideally. He is on atorvastatin. Lipid profiles followed by PCP Plan Time spent on chart review, documentation, interview and assessment Orders: Orders CA echo transthoracic complete 12/01/24 I35.0 - Nonrheumatic aortic (valve) stenosis, I71.21 - Aneurysm of the ascending aorta, without rupture Coding Level of Care Code Est Pt Level 4 (31270) Diagnoses Non-rheumatic aortic stenosis I35.0 Aneurysm of ascending aorta without rupture I71.21 Presence of rupture: without rupture Hypertension I10 Hyperlipidemia E78.5 Time Spent (min) 28
== END 2024-03-20 10:42 | disposition home or self-care (01) ==
PROVIDERS: PCP Family Medicine; Visit Provider Nurse Practitioner Family
DX: I35.0 Nonrheumatic aortic (valve) stenosis (principal); I71.21 Aneurysm of the ascending aorta, without rupture; I10 Essential (primary) hypertension; E78.5 Hyperlipidemia, unspecified
CPT/HCPCS: 99214

== ENCOUNTER → 2024-03-20 09:12 | Outpatient (BNVA) | payer OTHER, SELFPAY | PROVIDERS: PCP Family Medicine; Visit Provider Nurse Practitioner Family | DX: I35.0 Nonrheumatic aortic (valve) stenosis (principal); I71.21 Aneurysm of the ascending aorta, without rupture; E78.5 Hyperlipidemia, unspecified; I10 Essential (primary) hypertension | CPT/HCPCS: 99212 ==

== ENCOUNTER 2024-04-17 09:15 | Outpatient (AMB) | payer OTHER, SELFPAY ==
--- NOTE | 2024-04-17 09:20 | MHC.OFFVIS ---
Intake Visit Reasons: 7w/PVR Intake Note: Patient presents for follow up visit for Incomplete Bladder Emptying Urology Medications: terazosin, finasteride Blood Thinner: warfarin PVR: 74ml's Kettle Cleaner Required: Yes Kettle Cleaner Name: [id number] Neville Accompanied by: Self / Same As Patient Allergies ibuprofen [From Motrin] Allergy (Intermediate, Verified 04/17/24 22:46) UNKNOWN acetaminophen [From Percocet] Allergy (Verified 04/17/24 22:46) Unknown oxycodone Allergy (Verified 04/17/24 22:46) Unknown Medication List - Last Reconciled 04/17/24 by LAURY Hernandez- acetaminophen (Tylenol) 650 mg PO Q8H PRN amlodipine 10 mg PO BEDTIME atorvastatin 10 mg PO BEDTIME buspirone 30 mg PO BID cholecalciferol (vitamin D3) (Vitamin D3) 50 mcg PO DAILY docusate sodium 100 mg PO BID finasteride 5 mg PO DAILY 90 days fluticasone propionate 50 mcg/actuation 1 spray intranasal DAILY folic acid 1 mg PO QAM gabapentin 300 mg PO BEDTIME hydralazine 25 mg PO TID hydralazine 50 mg PO TID lidocaine 5% 1 appl topical QID PRN loratadine 10 mg PO DAILY@0900 mirtazapine 45 mg PO BEDTIME naltrexone 50 mg PO DAILY omeprazole 20 mg PO BID phenytoin sodium extended 300 mg PO QAM terazosin 10 mg (2 x 5 mg) PO BEDTIME 30 days thiamine HCl (vitamin B1) 100 mg PO QAM warfarin 5 mg PO TH warfarin 4 mg PO SUMOTUWEFRSA HPI Comments Details: Chriss is a 68-year-old Serbian-speaking male patient of Dr. Ngo. He has a past medical history of alcohol abuse, aortic aneurysm, chronic anticoagulation, chronic kidney disease, depression, DVT, GERD, hemorrhoids, mood disorder, PVD, and seizures. He presents to the office today for follow-up of his lower urinary tract symptoms. He reports compliance with terazosin and finasteride 5 mg daily as prescribed. He does feel lower urinary tract symptoms have gotten somewhat better with terazosin 5 mg verses previous trial of Flomax. However he does continue to report urinary frequency and urinary dribbling. Discussed pelvic floor exercises for urinary dribbling. Previous workup has included a retroperitoneal ultrasound 07/02 noting right kidney with no calculi or hydronephrosis. There is lower pole laterally 0.8 x 0.6 x 0.7 cm cortical cyst. 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 Left kidney with no calculi or hydronephrosis. There are 3 cysts identified laterally 1.7 x 1.8 x 1.5 cm and laterally in the upper pole 1.5 x 1.2 x 1.5 cm, there is 1.6 x 1.6 x 1.7 cm cyst in the middle aspect of the cortex. The urinary bladder is well distended with trabeculated wall. Bilateral ureteral jets are demonstrated. Pre void bladder volume is approximately 240 mL. Postvoid bladder volume is approximately 20 mL. Prostate volume is approximately 30 mL. In office urinalysis results reviewed with the patient today. PVR 74mLs. He otherwise denies incontinence, nocturia, hematuria, dysuria, foul-smelling urine, flank pain, fever, and or chills. PSAs are as follows: 08/29 3.0, 12/03 3.6 PFSH Medical History Ascending aortic aneurysm Colon cancer screening Hemorrhoid Aortic aneurysm GERD (gastroesophageal reflux disease) Chronic anticoagulation Alcohol abuse Mood disorder Mood disorder due to a general medical condition Peripheral vascular disease DVT (deep venous thrombosis) Hyperhomocysteinemia CKD (chronic kidney disease) Depression Seizure Surgical History Hx of colonoscopy Hx of hernia repair Family History Paternal Grandmother Cancer Maternal Grandfather Cancer Paternal Aunt Cancer Social History Household Members: None Housing: Apartment Are you a primary youth care worker to a significant other at home: No Do you presently have visiting nurse or other home services: No Alcohol intake: current Alcohol intake frequency: holidays/special occasions only Alcohol type: beer Patient Tobacco Use Status: Never used Tobacco Advance Directives Date on File: 10/01/20 service: No Current occupational status: disabled Review of Systems Const All systems reviewed & are unremarkable except as noted in HPI and below Reports as per HPI Eyes Reports no additional complaints ENT Reports no additional complaints Card Reports as per [facility] Resp Reports no additional complaints GI Reports as per [facility] Reports as per [facility] Musc Reports no additional complaints Neuro Reports as per [facility] Psych Reports as per [facility] Endo Reports as per [facility] Patrick/Lymph Reports as per [facility] Physical Exam Const General: cooperative, healthy appearing, comfortable, no acute distress, well developed, alert and awake Nutritional Appearance: average body habitus Orientation/consciousness: patient oriented x3 Limitations: no limitations HEENT Head: Yes normal to inspection, Yes normocephalic and Yes atraumatic Ears: hearing grossly normal bilaterally Eyes General: appearance normal, both eyes and all related structures Neck Neck: Yes normal visual inspection and Yes trachea midline Chest Chest palpation & inspection: normal inspection of the chest Resp Effort & Inspection: normal respiratory effort and able to speak in complete sentences Cardio Rate: regular rate GI Inspection: Yes normal to inspection Rectal Exam - Male: Yes deferred General: Yes no CVA tenderness Back/Spine/Pelvis Back: no CVA tenderness Skin General skin exam: no rashes or lesions noted Neuro General: patient oriented x3 Extrem General: Yes normal to inspection Psych Appearance: grossly normal and well kempt Mental Status: mental status grossly normal Speech and movement: Normal speech and movement present and Clear speech present Affect: normal affect Attitude: cooperative Thought process: Normal thought process present Thought content: Normal thought content present Insight: Fair insight present (Psych) Judgement: Fair judgement present (Psych) Office Procedures Post Void Residual Post Residual Void Post Void Residual (PVR): 74 [id number] Void Residual by ultrasound Results AMB Urinalysis, Automated UA Leukoctes 0 Briana/uL Last Edit by Ruben Morales on 04/17/24 09:43 UA Nitrite Negative Last Edit by [employer] marie Morales on 04/17/24 09:43 UA Urobilinogen 0.2 mg/dL Last Edit by [employer] marie Morales on 04/17/24 09:43 UA Protein 30 mg/dL Last Edit by [employer] marie Morales on 04/17/24 09:43 UA pH 6.0 Last Edit by [employer] marie Morales on 04/17/24 09:43 UA Blood 0 Daniel/uL Last Edit by [employer] marie Morales on 04/17/24 09:43 UA Specific Jerome 1.015 Last Edit by [employer] marie Morales on 04/17/24 09:43 UA Ketone Negative Last Edit by Ruben Morales on 04/17/24 09:43 UA Bilirubin 0 mg/dL Last Edit by Ruben Morales on 04/17/24 09:43 UA Glucose 0 mg/dL Last Edit by Ruben Morales on 04/17/24 09:43 Results Reviewed Results Reviewed: Laboratory Last Values Urine pH (Auto) 6.0 04/17/24 09:29 Specific Jerome (Auto) 1.015 04/17/24 09:29 Urine Protein (Auto) 30 mg/dL 04/17/24 09:29 Glucose (UA)(Auto) 0 mg/dL 04/17/24 09:29 Urine Ketones (Auto) Negative 04/17/24 09:29 Urine Blood (Auto) 0 Daniel/uL 04/17/24 09:29 Urine Nitrite (Auto) Negative 04/17/24 09:29 Urine Bilirubin (Auto) 0 mg/dL 04/17/24 09:29 Urine Urobilinogen (Auto) 0.2 mg/dL 04/17/24 09:29 Leukocyte Esterase (Auto) 0 Briana/uL 04/17/24 09:29 Assessment & Plan Assessment & Plan (1) Urinary frequency: Code(s): R35.0 - Frequency of micturition Category: Medical (2) Bladder trabeculation: Code(s): N32.89 - Other specified disorders of bladder Category: Medical (3) Incomplete bladder emptying: Code(s): R33.9 - Retention of urine, unspecified Category: Medical (4) Weak urinary stream: Code(s): R39.12 - Poor urinary stream Category: Medical (5) Urinary dribbling: Code(s): N39.43 - Post-void dribbling Category: Medical Plan In office urinalysis results reviewed with the patient today; as noted above. PVR 74 mL. Continue finasteride as discussed and prescribed. Will increase terazosin to 10 mg. Discussed obtaining PSA for further assessment evaluation. Discussed potential near future in office cystoscopy if symptoms continue and or worsen; information provided. Discussed bladder triggers/irritants. Information provided for pelvic floor exercises to assist with urinary dribbling. Follow-up in 1-3 months with PSA to be completed prior and PVR at next office visit; or sooner with any issues, concerns, and or questions. Orders: Orders AMB Post Void Residual by ultrasound Today R35.0 - Frequency of micturition AMB Urinalysis Automated Today Z13.9 - Encounter for screening, unspecified Prostate Specific Antigen Today N32.89 - Other specified disorders of bladder, R33.9 - Retention of urine, unspecified, R39.12 - Poor urinary stream Medications: Changed From terazosin 5 mg PO BEDTIME 30 days 30 caps 1RF N40.1 - Benign prostatic hyperplasia with lower urinary tract symptoms, R35.0 - Frequency of micturition To terazosin this is an increase in dosage 10 mg (2 x 5 mg) PO BEDTIME 30 days 60 caps 1RF N40.1 - Benign prostatic hyperplasia with lower urinary tract symptoms, R35.0 - Frequency of micturition Patient Instructions: The patient had an opportunity to ask questions regarding the treatment plan. All questions were answered. Physical exam, labs, and imaging were discussed and reviewed in detail. As well as risks, benefits, and discussion of treatment choices. No major barriers to understanding were identified. The patient expressed understanding and agreement with the above treatment plan. The patient was made aware they should contact our office by phone for worsening of their current condition, the appearance of new symptoms, or with any questions or concerns. Compliance is encouraged with any medications and follow up testing that is ordered. It is a privilege to be allowed the opportunity to participate in? your urological care.? Again, if you have any questions or concerns If you have any questions or concerns please do not hesitate to contact me. The office is [phone]. This note is constructed using voice recognition software. While every effort has been made to ensure accuracy [employer]efied [employer] plant operator errors may have been included. Yours sincerely, LAURY Hernandez- Coding Level of Care Code Est Pt Level 4 (13693) Diagnoses Urinary frequency R35.0 Bladder trabeculation N32.89 Incomplete bladder emptying R33.9 Weak urinary stream R39.12 Urinary dribbling N39.43 CPT Codes Post Residual Void - PVR CPT Code: 66510-Mtmd Void Residual by ultrasound ([id number]) Time Spent (min) 25
== END 2024-04-17 10:01 | disposition home or self-care (01) ==
PROVIDERS: PCP Family Medicine; Visit Provider Nurse Practitioner Family
DX: R35.0 Frequency of micturition (principal); N32.89 Other specified disorders of bladder; R33.9 Retention of urine, unspecified; R39.12 Poor urinary stream; N39.43 Post-void dribbling
CPT/HCPCS: 99214

== ENCOUNTER → 2024-04-17 09:15 | Outpatient (BNVA) | payer OTHER, SELFPAY | PROVIDERS: PCP Family Medicine; Visit Provider Nurse Practitioner Family | DX: R35.0 Frequency of micturition (principal); N32.89 Other specified disorders of bladder; R33.9 Retention of urine, unspecified; R39.12 Poor urinary stream; N39.43 Post-void dribbling; Z79.899 Other long term (current) drug therapy | CPT/HCPCS: 51798; 81003; 99212 ==

== ENCOUNTER 2024-05-03 09:02 | Emergency (ER) | payer OTHER, SELFPAY ==
--- NOTE | ~2024-05-03 | XR_ITS ---
EXAMINATION: XR CHEST CLINICAL INFORMATION: Chest pain COMPARISON: 04/01/2023 and 10/19/2023 TECHNIQUE: Frontal view of the chest was obtained. FINDINGS: Lungs are mildly hypoinflated. There appears to be chronic thickening of bronchial mitchell. No focal consolidation, pleural effusion or pneumothorax. Cardiac silhouette is normal in size. There is atherosclerotic calcification of the aortic arch. The visualized bones are intact. XR/XR chest 1V IMPRESSION: * No acute pulmonary disease. * Chronic inflammatory thickening of airway mitchell is suspected.
[2024-05-03 09:00] VITALS: BP 136/82; PULSE 61; RESP 14; TEMP 37; O2SAT 95; BMI 24.5
[2024-05-03 09:07] VITALS: BP 181/79; PULSE 63; O2SAT 96
--- NOTE | 2024-05-03 09:08 | ECG_ITS ---
Test Reason : CP Blood Pressure : / mmHG Vent. Rate : 056 BPM Atrial Rate : 056 BPM P-R Int : 144 ms QRS Dur : 088 ms QT Int : 438 ms P-R-T Axes : 048 018 036 degrees QTc Int : 422 ms Sinus bradycardia Otherwise normal ECG When compared with ECG of 19-OCT-2023 11:58, No significant change was found Referred By: Generic ED Physician Electronically Signed By:LESA BURGER
--- NOTE | 2024-05-03 09:25 | ED_ITS ---
HPI - Chest Pain General Chief Complaint: Chest Pain Stated Complaint: chest pains since last night Time Seen by Provider: 05/03/24 09:14 Source: patient, EMS and spanish medical interpreter Mode of arrival: EMS Limitations: no limitations History of Present Illness ED Provider: DR. Fleming HPI narrative: [id number] male old male came in for evaluation of left-sided chest pain started since 08:00 this morning pain is localized to the left chest wall, patient also complaining of mid left forearm pain and numbness at the tip of left fingers, pain has been constant since 08:00, more when he takes a deep breath or move the arm or touch the chest, no trauma or injury to the chest wall. No recent travel or prolonged immobilization, no lower extremities pain or edema. Related Data Home Medications ?Medication ?Instructions ?Recorded ?Confirmed fluticasone propionate 50 1 spray intranasal DAILY 08/06/20 03/20/24 mcg/actuation nasal spray,suspension naltrexone 50 mg tablet 50 mg PO DAILY 11/13/20 03/20/24 acetaminophen 325 mg capsule 650 mg PO Q8H PRN fever or pain 10/19/23 03/20/24 (Tylenol) cholecalciferol (vitamin D3) 50 50 mcg PO DAILY 02/27/24 03/20/24 mcg (2,000 unit) capsule (Vitamin D3) amlodipine 10 mg tablet 10 mg PO DAILY 05/03/24 05/03/24 atorvastatin 10 mg tablet 10 mg PO BEDTIME 05/03/24 05/03/24 buspirone 30 mg tablet 30 mg PO BID 05/03/24 05/03/24 cholecalciferol (vitamin D3) 50 50 mcg PO DAILY 05/03/24 05/03/24 mcg (2,000 unit) capsule (Vitamin D3) docusate sodium 100 mg capsule 100 mg PO BID 05/03/24 05/03/24 finasteride 5 mg tablet 5 mg PO DAILY 05/03/24 05/03/24 folic acid 1 mg tablet 1 mg PO DAILY 05/03/24 05/03/24 gabapentin 300 mg capsule 300 mg PO DAILY 05/03/24 05/03/24 hydralazine 50 mg tablet 50 mg PO TID 05/03/24 05/03/24 loratadine 10 mg tablet 10 mg PO DAILY 05/03/24 05/03/24 mirtazapine 45 mg tablet 45 mg PO BEDTIME 05/03/24 05/03/24 omeprazole 20 mg capsule,delayed 20 mg PO 05/03/24 release phenytoin sodium extended 100 mg 100 mg PO TID 05/03/24 05/03/24 capsule terazosin 5 mg capsule 5 mg PO BEDTIME 05/03/24 05/03/24 thiamine HCl (vitamin B1) 100 mg 100 mg PO QAM 05/03/24 05/03/24 tablet warfarin 1 mg tablet 5 mg PO QWEEK 05/03/24 05/03/24 warfarin 4 mg tablet 4 mg PO DAILY 05/03/24 05/03/24 Allergies Allergy/AdvReac Type Severity Reaction Status Date / Time ibuprofen [From Motrin] Allergy Intermediate Unknown Verified 05/03/24 09:55 acetaminophen [From Percocet] Allergy Unknown Verified 04/17/24 22:46 oxycodone Allergy Unknown Verified 04/17/24 22:46 Review of Systems 2 Review of Systems: All other systems are reviewed and are negative Constitutional: Reports as per HPI and Reports no additional constitutional complaints Eyes: Reports as per HPI and Reports no additional eye complaints Reports system reviewed and no additional complaints, except as documented Cardiovascular: Reports as per HPI and Reports no additional cardiovascular complaints Respiratory: Reports as per HPI and Reports no additional respiratory complaints Gastrointestinal: Reports as per HPI and Reports no additional gastrointestinal complaints Genitourinary: Reports no additional female genitourinary complaints Musculoskeletal: Reports no additional musculoskeletal complaints Skin/Breast: Reports system reviewed and no additional complaints, except as docu Psychiatric: Reports no additional psychiatric complaints Endocrine: Reports no additional endocrine complaints Hematologic/Lymphatic: Reports no additional hematologic/lymphatic complaints Allergic/Immunologic: Reports no additional allergic/immunologic complaints Reports system reviewed and no additional complaints, except as documented and Reports Abnormal speech present COUNTS INCLUDE 234 BEDS AT THE [facility] Past Medical History Medical History Ascending aortic aneurysm Colon cancer screening Hemorrhoid Aortic aneurysm GERD (gastroesophageal reflux disease) Chronic anticoagulation Alcohol abuse Mood disorder Mood disorder due to a general medical condition Peripheral vascular disease DVT (deep venous thrombosis) Hyperhomocysteinemia CKD (chronic kidney disease) Depression Seizure Surgical History Hx of colonoscopy Hx of hernia repair Family History Family History Paternal Grandmother Cancer Maternal Grandfather Cancer Paternal Aunt Cancer Social History Social History Household Members: None Housing: Apartment Are you a primary aged or disabled care worker to a significant other at home: No Do you presently have visiting nurse or other home services: No Alcohol intake: current Alcohol intake frequency: holidays/special occasions only Alcohol type: beer Patient Tobacco Use Status: Never used Tobacco Advance Directives: Yes Advance Directives on File: Yes Advance Directives Date on File: 10/01/20 service: No Current occupational status: disabled Physical Exam 2 Vital Signs: Vital Signs: Last Vital Signs Temp 98.6 F 05/03/24 09:00 Pulse 53 05/03/24 11:40 Resp 14 05/03/24 11:40 BP 141/93 H 05/03/24 11:40 Pulse Ox 94 05/03/24 11:40 O2 Del Method Room Air 05/03/24 11:40 BMI result Body Mass Index 24.5 Vital signs have been reviewed and appear to be correct. Blood pressure elevated. Heart rate normal. Respiratory rate normal. Temperature normal. Oxygen saturation normal. Appearance: Alert. Oriented X3. No acute distress. Head: Normal external exam. Normocephalic. Atraumatic. No Boothe signs noted. No raccoon eyes noted Eyes: PERRLA. EOMI. Conjunctiva and sclera normal. Eyelids normal. ENT: TM's Normal. Pharynx normal. Uvula midline. Moist mucous membranes. No trismus noted. No drooling noted. No muffled voice noted. Neck: Normal inspection. Neck supple. FROM. No adenopathy. Thyroid Normal. No meningeal signs. No neck mass noted. CVS: Normal heart rate and rhythm. Heart sound normal. No murmurs noted. Pulses normal throughout. Respiratory: No respiratory distress. Painless inspiration. Breath sounds normal. No wheezes/rales/rhonchi noted. Reproducible tenderness over left breast area, no rash. No accessory muscle usage noted or decreased air movement noted. Abdomen: Soft and nontender. Bowel sounds normal in all 4 quadrants. No distention noted. No organomegaly noted. No visible injury noted. Back: No CVA tenderness. Full range of motion noted. Skin: Skin warm and dry. Normal skin color. Normal skin turgor. No rashes/lesions/lacerations noted. Extremities: No lower extremity edema. Extremities exhibit normal range of motion. Extremities nontender. Neuro: Oriented X 3. Cranial nerve exam: II-XII are grossly intact No motor deficit. No sensory deficit. Reflexes normal. Course Reevaluation(s) Reevaluation #1: 68-year-old male came in for evaluation of chest wall pain, troponin is negative x2, unremarkable labs, physical exam is consistent with reproducible chest wall tenderness. Will discharge to follow-up with PCP. Time: 14:00 Medical Decision Making Differential Diagnosis Differential Diagnoses: The differential diagnosis associated with the presentation includes (ACS, pleural effusion, pneumonia, pneumothorax, electrolyte derangement, severe anemia, chest wall pain, costochondritis.) Admission/Observation Consideration of admission/observation: Escalation of care including admission/observation considered Lab Data MDM Lab Attestation statement: I reviewed the patient's lab results. 05/03/24 09:38 05/03/24 09:38 Labs: Lab Results 05/03/24 05/03/24 05/03/24 Range/Units 09:38 09:38 10:32 WBC 4.2 L (4.8-10.8) X10*3/uL RBC 4.73 (4.60-5.80) X10*6/uL Hgb 16.1 (14.0-18.0) g/dl Hct 46.9 (42.0-52.0) % MCV 99.2 H (80.0-98.0) fL MCH 34.0 H (27.0-33.0) pg MCHC 34.3 (31.0-36.0) g/dl RDW 12.6 (11.0-16.0) % Plt Count 105 L D (160-400) X10*3/uL MPV 9.9 (9.4-12.4) fL Immature Gran % (Auto) 0.2 (0.0-0.4) % Neut % (Auto) 69.1 (45-73) % Lymph % (Auto) 15.0 L (20-40) % Bennett % (Auto) 8.1 (2-11) % Eos % (Auto) 6.9 H (0-4) % Baso % (Auto) 0.7 (0-2) % Lymph # (Auto) 0.6 L (1.2-4.9) X10*3/uL Bennett # (Auto) 0.3 (0.1-1.2) X10*3/uL Eos # (Auto) 0.3 (0.0-0.4) X10*3/uL Baso # (Auto) 0.0 (0.0-0.2) X10*3/uL Abs Immat Gran (auto) 0.01 (0.00-0.03) X10*3/uL Absolute Neuts (auto) 2.9 (2.0-8.3) x10*3/uL Absolute Nucleated RBC 0.000 (0.0-0.012) X10*3/uL Nucleated RBC % (auto) 0.0 (0.0-0.2) /100WBC PT 28.3 H (11.1-13.3) SEC INR 2.3 H (0.9-1.1) APTT 36.2 (26.0-36.8) SEC Sodium 141 (135-145) mmol/L Potassium 4.6 (3.3-5.1) mmol/L Chloride 112 H (96-108) mmol/L Carbon Dioxide 22 (22-29) mmol/L Anion Gap 12 (12-20) BUN 20 H (9-16) mg/dL Creatinine 1.62 H (0.5-1.4) mg/dL Estim Creat Clear Calc 42.4 Estimated GFR 42 Random Glucose 102 (60-115) mg/dL Calcium 9.4 (8.4-10.2) mg/dL Total Bilirubin 0.5 (0.0-1.0) mg/dL Direct Bilirubin 0.1 (0.0-0.5) mg/dL AST 13 (5-37) U/L ALT 14 (0-40) U/L Alkaline Phosphatase 57 (39-117) U/L Total Creatine Kinase 71 (38-174) U/L Troponin I High Sens 7.4 Cancelled (<3.5-35.0) ng/L B-Natriuretic Peptide 56 (<100) pg/mL Total Protein 6.6 (6.5-8.0) g/dL Albumin 3.7 (3.5-5.0) g/dL Lipase 41 (8-78) U/L Influenza Type A (PCR) NEGATIVE (Negative) Influenza Type B (PCR) NEGATIVE (Negative) RSV RNA Qual (PCR) NEGATIVE (Negative) SARS-CoV-2 RNA (RT-PCR) NEGATIVE (Negative) Independent Interpretation I performed an independent interpretation of an: Plain X-Ray (Chest:* No acute pulmonary disease. * Chronic inflammatory thickening of airway mitchell is suspected. ) Radiology Impression Discussion of test interpretation with radiology: I have reviewed the radiologist's reading. Discharge Plan Discharge Clinical Impression: Atypical chest pain, Acute chest wall pain Patient Disposition: Home, Self-Care Instructions: Chest Wall Pain (ED) Additional Instructions: Take ibuprofen 200 mg 1 tablet every 6 hours orally if needed for pain ([id number] medication). Prescriptions: No Action fluticasone propionate 50 mcg/actuation spray,suspension 1 spray intranasal DAILY acetaminophen [Tylenol] 325 mg capsule 650 mg PO Q8H PRN (Reason: fever or pain) amlodipine 10 mg tablet 10 mg PO DAILY atorvastatin 10 mg tablet 10 mg PO BEDTIME buspirone 30 mg tablet 30 mg PO BID terazosin 5 mg capsule 5 mg PO BEDTIME thiamine HCl (vitamin B1) 100 mg tablet 100 mg PO QAM phenytoin sodium extended 100 mg capsule 100 mg PO TID warfarin 4 mg tablet 4 mg PO DAILY docusate sodium 100 mg capsule 100 mg PO BID gabapentin 300 mg capsule 300 mg PO DAILY omeprazole 20 mg capsule,delayed release(DR/EC) 20 mg PO mirtazapine 45 mg tablet 45 mg PO BEDTIME folic acid 1 mg tablet 1 mg PO DAILY hydralazine 50 mg tablet 50 mg PO TID warfarin 1 mg tablet 5 mg PO QWEEK Rx Instructions: 5mg on finasteride 5 mg tablet 5 mg PO DAILY loratadine 10 mg tablet 10 mg PO DAILY cholecalciferol (vitamin D3) [Vitamin D3] 50 mcg (2,000 unit) capsule 50 mcg PO DAILY naltrexone 50 mg tablet 50 mg PO DAILY cholecalciferol (vitamin D3) [Vitamin D3] 50 mcg (2,000 unit) capsule 50 mcg PO DAILY Referrals: Veronica Gallardo MD [Primary Care Provider] - Print Language: Kyrgyz
[2024-05-03 09:43] LABS: MANUAL DIFF FLAG NO
[2024-05-03 09:47] LABS: Basophils Percent Auto 0.7 % (0-2); Eosinophils Absolute Auto 0.3 X10*3/uL (0.0-0.4); Eosinophils Percent Auto 6.9 % (0-4); Hematocrit 46.9 % (42.0-52.0); Hemoglobin 16.1 g/dl (14.0-18.0); Imm Gran Abs Auto 0.01 X10*3/uL (0.00-0.03); Imm Gran Pct Auto 0.2 % (0.0-0.4); Lymphocytes Absolute Auto 0.6 X10*3/uL (1.2-4.9); Mean Corpuscular HGB Conc 34.3 g/dl (31.0-36.0); Mean Corpuscular Volume 99.2 fL (80.0-98.0); Mean Platelet Volume 9.9 fL (9.4-12.4); Monocytes Absolute Auto 0.3 X10*3/uL (0.1-1.2); Monocytes Percent Auto 8.1 % (2-11); Neutrophils Absolute Auto 2.9 x10*3/uL (2.0-8.3); Neutrophils Percent Auto 69.1 % (45-73); Platelet Count 105 X10*3/uL (160-400); Red Blood Count 4.73 X10*6/uL (4.60-5.80); Red Cell Distribution Width 12.6 % (11.0-16.0); White Blood Count 4.2 X10*3/uL (4.8-10.8)
[2024-05-03 10:04] LABS: Alanine Aminotransferase 14 U/L (0-40); Albumin Level 3.7 g/dL (3.5-5.0); Alkaline Phosphatase 57 U/L (39-117); Anion Gap 12 (12-20); Aspartate Amino Transferase 13 U/L (5-37); Bilirubin Direct 0.1 mg/dL (0.0-0.5); Bilirubin Total 0.5 mg/dL (0.0-1.0); Blood Urea Nitrogen 20 mg/dL (9-16); Calcium 9.4 mg/dL (8.4-10.2); Carbon Dioxide 22 mmol/L (22-29); Chloride 112 mmol/L (96-108); Creatinine Clr Calc Pharmacy 42.4; Estimated Glomerular Filt Rate 42; Glucose Random 102 mg/dL (60-115); Lipase 41 U/L (8-78); Potassium 4.6 mmol/L (3.3-5.1); Sodium 141 mmol/L (135-145); Total Protein 6.6 g/dL (6.5-8.0)
[2024-05-03 10:07] LABS: B Type Natriuretic Peptide 56 pg/mL (<100)
[2024-05-03 10:22] LABS: Troponin-I High Sensitivity 7.4 ng/L (<3.5-35.0)
[2024-05-03 10:35] LABS: Influenza A PCR NEGATIVE (Negative); Influenza B PCR NEGATIVE (Negative); Resp Syncy Virus RNA Qual PCR NEGATIVE (Negative); SARS COV2 PCR INHOUSE NEGATIVE (Negative)
[2024-05-03 10:47] LABS: INTERNATIONAL NORM RATIO 2.3 (0.9-1.1); Prothrombin Time 28.3 SEC (11.1-13.3)
[2024-05-03 10:50] LABS: Partial Thromboplastin Time 36.2 SEC (26.0-36.8)
[2024-05-03 11:40] VITALS: BP 141/93; PULSE 53; RESP 14; O2SAT 94
--- NOTE | 2024-05-03 11:40 | PC.NURSE ---
VS updated, pt updated on POC- plan to repeat troponin at 1230. Pt verbalized understanding, denied any complaints or questions.
[2024-05-03 13:29] LABS: Troponin-I High Sensitivity 7.6 ng/L (<3.5-35.0)
[2024-05-03 13:52] VITALS: BP 141/93; PULSE 53; RESP 14; TEMP 37; O2SAT 94
== END 2024-05-03 13:53 | disposition home or self-care (01) ==
PROVIDERS: Emergency Provider Emergency Medicine; PCP Family Medicine
DX: R07.89 Other chest pain (principal); R06.02 Shortness of breath; Z03.818 Encounter for observation for suspected exposure to other biological agents ruled out; Z79.899 Other long term (current) drug therapy
CPT/HCPCS: 0241U; 36415; 71045; 80048; 80076; 82550; 83690; 83880; 84484; 85025; 85610; 85730; 93005; 99283; 99284

== ENCOUNTER → 2024-05-03 09:08 | Outpatient (BNV) | payer OTHER, SELFPAY | PROVIDERS: Emergency Provider Emergency Medicine; PCP Family Medicine; Visit Provider Internal Medicine | DX: R07.9 Chest pain, unspecified (principal) | CPT/HCPCS: 93010 ==

== ENCOUNTER 2024-05-07 12:14 | Outpatient (AMB) | payer OTHER, SELFPAY ==
--- NOTE | 2024-05-07 12:46 | MHC.OFFVIS ---
Vital Signs 05/07/24 12:47 Height 5 ft 9 in Weight 166 lb BMI 24.5 Intake Visit Reasons: N/P left knee pain Intake Note: Chriss is a 68 year old male who presentst today as a new patient with complaints of left knee pain. Patient reports that he has had ongoing left knee pain for years now, with no previous treatment. Pain is felt on the medial aspect of the knee and radiates to the calf. Pain increases with ambulation of stairs, prolonged walking. Takes Tylenol which does not provide adequate relief. Allergies ibuprofen [From Motrin] Allergy (Intermediate, Verified 05/07/24 12:51) Unknown acetaminophen [From Percocet] Allergy (Verified 05/07/24 12:51) Unknown oxycodone Allergy (Verified 05/07/24 12:51) Unknown HPI HPI N/P left knee pain : Details: Chriss is a 68 year old male who presentst today as a new patient with complaints of left knee pain. Patient reports that he has had ongoing left knee pain for years now, with no previous treatment. Pain is felt on the medial aspect of the knee and radiates to the calf. Pain increases with ambulation of stairs, prolonged walking. Takes Tylenol which does not provide adequate relief. He states he has done PT and it has not helped. He also states that he cannot tolerate NSAIDs PFSH Medical History Ascending aortic aneurysm Colon cancer screening Hemorrhoid Aortic aneurysm GERD (gastroesophageal reflux disease) Chronic anticoagulation Alcohol abuse Mood disorder Mood disorder due to a general medical condition Peripheral vascular disease DVT (deep venous thrombosis) Hyperhomocysteinemia CKD (chronic kidney disease) Depression Seizure Surgical History Hx of colonoscopy Hx of hernia repair Family History Paternal Grandmother Cancer Maternal Grandfather Cancer Paternal Aunt Cancer Social History Household Members: None Housing: Apartment Are you a primary director long term care to a significant other at home: No Do you presently have visiting nurse or other home services: No Alcohol intake: current Alcohol intake frequency: holidays/special occasions only Alcohol type: beer Patient Tobacco Use Status: Never used Tobacco Advance Directives Date on File: 10/01/20 service: No Current occupational status: disabled Physical Exam Vital Signs: BMI result Body Mass Index 24.5 Extrem Other: varus knee alignment with ttp medial comaprtment bilateral knees Office Procedures Joint Injection/Aspiration Joint Injection/Aspiration Details: Injected 1 mL of Decadron and 3 mL 1% lidocaine and 3 mL of 0.25% Marcaine. Site was prepped using aseptic technique. Patient tolerated the procedure well. Primary Site: right knee Secondary Site: left knee Approach Used: anterolateral Coding 23806 - Large joint 82077 - Glenohumeral/Tronchanteric Bursa/Intraarticular Procedure code (CPT) selection complete Assessment & Plan Assessment & Plan (1) Arthritis of both knees: Code(s): M17.0 - Bilateral primary osteoarthritis of knee Category: Medical Plan: Bilateral knee OA. Injected both knees. May f/u as needed. Coding Level of Care Code New Pt Level 3 (36554) Diagnoses Arthritis of both knees M17.0 CPT Codes Coding - 13598 Large joint: 06356 - Large joint ([id number]) Coding - Joint 7: 64979 - Glenohumeral/Tronchanteric Bursa/Intraarticular ([id number])
[2024-05-07 12:47] VITALS: BMI 24.5
== END 2024-05-07 15:21 | disposition home or self-care (01) ==
PROVIDERS: PCP Family Medicine; Visit Provider Orthopaedic Surgery
DX: M17.0 Bilateral primary osteoarthritis of knee (principal)
CPT/HCPCS: 20610; 99203

== ENCOUNTER → 2024-05-07 12:14 | Outpatient (BNVA) | payer OTHER, SELFPAY | PROVIDERS: PCP Family Medicine; Visit Provider Orthopaedic Surgery | DX: M17.0 Bilateral primary osteoarthritis of knee (principal) | CPT/HCPCS: 20610; 99202; J0665; J1100 ==

== ENCOUNTER 2024-06-21 13:15 | Outpatient (REF) | payer OTHER, SELFPAY ==
[2024-06-21 16:33] LABS: Estimated Average Glucose 103 mg/dL; Hemoglobin A1c % 5.2 % (<6.0)
[2024-06-21 16:46] LABS: Alanine Aminotransferase 20 U/L (0-40); Albumin Level 3.7 g/dL (3.5-5.0); Alkaline Phosphatase 51 U/L (39-117); Anion Gap 12 (12-20); Aspartate Amino Transferase 17 U/L (5-37); Bilirubin Total 0.4 mg/dL (0.0-1.0); Blood Urea Nitrogen 25 mg/dL (9-16); Calcium 9.4 mg/dL (8.4-10.2); Carbon Dioxide 23 mmol/L (22-29); Chloride 108 mmol/L (96-108); Cholesterol 154 mg/dL (<200); Estimated Glomerular Filt Rate 37; Glucose Random 133 mg/dL (60-115); HDL Cholesterol 45 mg/dL (>40); LDL Cholesterol Calculated 82 mg/dL (<100); Potassium 4.4 mmol/L (3.3-5.1); Sodium 139 mmol/L (135-145); Total Protein 6.4 g/dL (6.5-8.0); Triglycerides 138 mg/dL (<150)
[2024-06-21 16:52] LABS: TSH reflex Free T4 2.47 uIU/mL (0.32-4.0)
[2024-06-21 16:53] LABS: Prostate Specific Antigen 1.86 ng/mL (<0.05-4.0)
[2024-06-21 18:41] LABS: Reflex LDLD? No
[2024-06-22 03:19] LABS: CT PCR NOT DETECTED (Not Detect.); NG PCR NOT DETECTED (Not Detect.)
[2024-06-22 04:23] LABS: HBc Num1 0.19 S/CO (0.00-0.79); HBsAGNum1 0.26 S/CO (0.00-0.99); HIV AB/AG Nonreactive (Nonreactive); HIV Num 1 0.04 S/CO (0.00-0.99); Hepatitis B Core Antibody Nonreactive (Nonreactive); Hepatitis B Surface Antigen Negative (Negative); ~HepC Num1 0.13 S/CO (0.00-0.79); ~Hepatitis B Surface Antibody NONREACTIVE (Nonreactive); ~Hepatitis C Antibody Nonreactive (Nonreactive)
[2024-06-22 04:25] LABS: Hepatitis A Antibody IgG REACTIVE (Nonreactive)
[2024-06-25 10:53] LABS: RPR Rapid Plasma Reagin NON-REACTIVE (NON-REACTIVE)
== END 2024-06-21 13:16 | disposition home or self-care (01) ==
LOC: HO.HHCL 13:15
PROVIDERS: Referring Provider Nurse Practitioner Family; Visit Provider Family Medicine
DX: Z86.19 Personal history of other infectious and parasitic diseases (principal); I10 Essential (primary) hypertension; N18.30 Chronic kidney disease, stage 3 unspecified; E78.5 Hyperlipidemia, unspecified; R00.2 Palpitations; Z01.84 Encounter for antibody response examination; N32.89 Other specified disorders of bladder; R33.9 Retention of urine, unspecified; R39.12 Poor urinary stream; Z12.5 Encounter for screening for malignant neoplasm of prostate; Z13.1 Encounter for screening for diabetes mellitus
CPT/HCPCS: 36415; 80053; 80061; 83036; 84153; 84443; 86592; 86704; 86706; 86708; 86803; 87340; 87389; 87491; 87591

== ENCOUNTER 2024-07-16 09:58 | Outpatient (AMB) | payer OTHER, SELFPAY ==
--- NOTE | 2024-07-16 10:04 | MHC.OFFVIS ---
Intake Visit Reasons: 3m/PSA/PVR Intake Note: Patient presents for follow up visit for Incomplete Bladder Emptying Urology Medications: terazosin, finasteride Blood Thinner: warfarin PVR: 78ml's Press Tender Incendiary Grenade Required: Yes Press Tender Incendiary Grenade Name: Crista [id number] Accompanied by: Self / Same As Patient Allergies ibuprofen [From Motrin] Allergy (Intermediate, Verified 07/16/24 10:31) Unknown acetaminophen [From Percocet] Allergy (Verified 07/16/24 10:31) Unknown oxycodone Allergy (Verified 07/16/24 10:31) Unknown Medication List - Last Reconciled 07/16/24 by MARCIA Hernandez acetaminophen (Tylenol) 650 mg PO Q8H PRN amlodipine 10 mg PO DAILY atorvastatin 10 mg PO BEDTIME buspirone 30 mg PO BID cholecalciferol (vitamin D3) (Vitamin D3) 50 mcg PO DAILY docusate sodium 100 mg PO BID finasteride 5 mg PO DAILY fluticasone propionate 50 mcg/actuation 1 spray intranasal DAILY folic acid 1 mg PO DAILY gabapentin 300 mg PO DAILY hydralazine 50 mg PO TID loratadine 10 mg PO DAILY mirtazapine 45 mg PO BEDTIME omeprazole 20 mg PO DAILY phenytoin sodium extended 100 mg PO TID terazosin 5 mg PO BEDTIME thiamine HCl (vitamin B1) 100 mg PO QAM warfarin 5 mg PO QWEEK warfarin 4 mg PO DAILY HPI Comments Details: Chriss is a 69-year-old [place] Islander-speaking male patient of Dr. Ngo. He has a past medical history of alcohol abuse, aortic aneurysm, chronic anticoagulation, chronic kidney disease, depression, DVT, GERD, hemorrhoids, mood disorder, PVD, and seizures. He presents to the office today for follow-up of his lower urinary tract symptoms. In discussion with the patient today he reports to be doing and feeling well. He reports compliance with terazosin and finasteride as prescribed. He reports feeling lower urinary tract symptoms have improved with switch from Flomax to terazosin. Previous workup has included a retroperitoneal ultrasound 07/02 noting right kidney with no calculi or hydronephrosis. There is lower pole laterally 0.8 x 0.6 x 0.7 cm cortical cyst. 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 Left kidney with no calculi or hydronephrosis. There are 3 cysts identified laterally 1.7 x 1.8 x 1.5 cm and laterally in the upper pole 1.5 x 1.2 x 1.5 cm, there is 1.6 x 1.6 x 1.7 cm cyst in the middle aspect of the cortex. The urinary bladder is well distended with trabeculated wall. Bilateral ureteral jets are demonstrated. Pre void bladder volume is approximately 240 mL. Postvoid bladder volume is approximately 20 mL. Prostate volume is approximately 30 mL. In office urinalysis results reviewed with the patient today. PVR 78mLs. Recent PSA results reviewed with the patient today as noted and trended below. He otherwise denies incontinence, nocturia, hematuria, dysuria, foul-smelling urine, flank pain, fever, and or chills. PSAs are as follows: 08/29 3.0, 12/03 3.6, 08/02 1.7 PFSH Medical History (Reviewed 07/16/24 @ 10:33 by LAURY HernandezENCOM[facility]) Ascending aortic aneurysm Colon cancer screening Hemorrhoid Aortic aneurysm GERD (gastroesophageal reflux disease) Chronic anticoagulation Alcohol abuse Mood disorder Mood disorder due to a general medical condition Peripheral vascular disease DVT (deep venous thrombosis) Hyperhomocysteinemia CKD (chronic kidney disease) Depression Seizure Surgical History Hx of colonoscopy Hx of hernia repair Family History Paternal Grandmother Cancer Maternal Grandfather Cancer Paternal Aunt Cancer Social History Household Members: None Housing: Apartment Are you a primary customer care coordinator to a significant other at home: No Do you presently have visiting nurse or other home services: No Alcohol intake: current Alcohol intake frequency: holidays/special occasions only Alcohol type: beer Patient Tobacco Use Status: Never used Tobacco Advance Directives Date on File: 10/01/20 service: No Current occupational status: disabled Review of Systems Const All systems reviewed & are unremarkable except as noted in HPI and below Reports as per HPI Eyes Reports no additional complaints ENT Reports no additional complaints Card Reports as per HPI Resp Reports no additional complaints GI Reports as per HPI Reports as per HPI Musc Reports no additional complaints Neuro Reports as per HPI Psych Reports as per HPI Endo Reports as per HPI Patrick/Lymph Reports as per HPI Physical Exam Const General: cooperative, healthy appearing, comfortable, no acute distress, well developed, alert and awake Nutritional Appearance: average body habitus Orientation/consciousness: patient oriented x3 Limitations: no limitations HEENT Head: Yes normal to inspection, Yes normocephalic and Yes atraumatic Ears: hearing grossly normal bilaterally Eyes General: appearance normal, both eyes and all related structures Neck Neck: Yes normal visual inspection and Yes trachea midline Chest Chest palpation & inspection: normal inspection of the chest Resp Effort & Inspection: normal respiratory effort and able to speak in complete sentences Cardio Rate: regular rate GI Inspection: Yes normal to inspection Rectal Exam - Male: Yes deferred General: Yes no CVA tenderness Back/Spine/Pelvis Back: no CVA tenderness Skin General skin exam: no rashes or lesions noted Neuro General: patient oriented x3 Extrem General: Yes normal to inspection Psych Appearance: grossly normal and well kempt Mental Status: mental status grossly normal Speech and movement: Normal speech and movement present and Clear speech present Affect: normal affect Attitude: cooperative Thought process: Normal thought process present Thought content: Normal thought content present Insight: Fair insight present (Psych) Judgement: Fair judgement present (Psych) Office Procedures Post Void Residual Post Residual Void Post Void Residual (PVR): 78 60018-Wrpm Void Residual by ultrasound Results AMB Urinalysis, Automated UA Leukoctes 0 Briana/uL Last Edit by Ruben Morales on 07/16/24 10:32 UA Nitrite Last Edit by Ruben Morales on 07/16/24 10:32 UA Urobilinogen 0.2 mg/dL Last Edit by Ruben Morales on 07/16/24 10:32 UA Protein 15 mg/dL Last Edit by [employer] Carmen on 07/16/24 10:32 UA pH 5.5 Last Edit by Ruben Morales on 07/16/24 10:32 UA Blood 0 Daniel/uL Last Edit by Ruben Morales on 07/16/24 10:32 UA Specific [place] 1.010 Last Edit by [employer] marie Morales on 07/16/24 10:32 UA Ketone Negative Last Edit by [employer] mar[employer] Morales on 07/16/24 10:32 UA Bilirubin 0 mg/dL Last Edit by [employer] [facility] Carmen on 07/16/24 10:32 UA Glucose 0 mg/dL Last Edit by Ruben Morales on 07/16/24 10:32 Results Reviewed Results Reviewed: Laboratory Last Values Urine pH (Auto) 5.5 07/16/24 10:30 Specific [place] (Auto) 1.010 07/16/24 10:30 Urine Protein (Auto) 15 mg/dL 07/16/24 10:30 Glucose (UA)(Auto) 0 mg/dL 07/16/24 10:30 Urine Ketones (Auto) Negative 07/16/24 10:30 Urine Blood (Auto) 0 Daniel/uL 07/16/24 10:30 Urine Bilirubin (Auto) 0 mg/dL 07/16/24 10:30 Urine Urobilinogen (Auto) 0.2 mg/dL 07/16/24 10:30 Leukocyte Esterase (Auto) 0 Briana/uL 07/16/24 10:30 Assessment & Plan Assessment & Plan (1) Urinary frequency: Code(s): R35.0 - Frequency of micturition Category: Medical (2) Bladder trabeculation: Code(s): N32.89 - Other specified disorders of bladder Category: Medical (3) Incomplete bladder emptying: Code(s): R33.9 - Retention of urine, unspecified Category: Medical (4) Weak urinary stream: Code(s): R39.12 - Poor urinary stream Category: Medical (5) Urinary dribbling: Code(s): N39.43 - Post-void dribbling Category: Medical Plan In office urinalysis results reviewed with the patient today; as noted above. PVR 78 mL. Continue finasteride as discussed and prescribed; refills provided Recent PSA results reviewed with the patient today; as noted above. Patient reports to be happy with current voiding parameters on terazosin and finasteride; will continue. Discussed potential near future in office cystoscopy if symptoms arise and or worsen; information provided. Discussed bladder triggers/irritants. Continue with pelvic floor exercises as provided to assist with urinary dribbling Follow-up in 6 months with PVR at next office visit; or sooner with any issues, concerns, and or questions. Orders: Orders AMB Urinalysis Automated Today Z13.9 - Encounter for screening, unspecified AMB Post Void Residual by ultrasound Today R33.9 - Retention of urine, unspecified Medications: Changed From finasteride 5 mg PO DAILY To finasteride 5 mg PO DAILY 90 days 90 tabs 3RF From terazosin 5 mg PO BEDTIME To terazosin 5 mg PO BEDTIME 90 days 90 caps 3RF Patient Instructions: The patient had an opportunity to ask questions regarding the treatment plan. All questions were answered. Physical exam, labs, and imaging were discussed and reviewed in detail. As well as risks, benefits, and discussion of treatment choices. No major barriers to understanding were identified. The patient expressed understanding and agreement with the above treatment plan. The patient was made aware they should contact our office by phone for worsening of their current condition, the appearance of new symptoms, or with any questions or concerns. Compliance is encouraged with any medications and follow up testing that is ordered. It is a privilege to be allowed the opportunity to participate in? your urological care.? Again, if you have any questions or concerns If you have any questions or concerns please do not hesitate to contact me. The office is [phone]. This note is constructed using voice recognition software. While every effort has been made to ensure accuracy sales administration specialist errors may have been included. Yours sincerely, MARCIA Hernandez Coding Level of Care Code Est Pt Level 3 (08626) Complex EM visit Add On G2211 Diagnoses Urinary frequency R35.0 Bladder trabeculation N32.89 Incomplete bladder emptying R33.9 Weak urinary stream R39.12 Urinary dribbling N39.43 CPT Codes Post Residual Void - PVR CPT Code: 82654-Jxrv Void Residual by ultrasound ([id number])
== END 2024-07-16 10:33 | disposition home or self-care (01) ==
LOC: HO.HUSH 09:58
PROVIDERS: PCP Family Medicine; Visit Provider Nurse Practitioner Family
DX: R35.0 Frequency of micturition (principal); N32.89 Other specified disorders of bladder; R33.9 Retention of urine, unspecified; R39.12 Poor urinary stream; N39.43 Post-void dribbling; Z13.9 Encounter for screening, unspecified
CPT/HCPCS: 99213; G2211

== ENCOUNTER → 2024-07-16 09:58 | Outpatient (BNVA) | payer OTHER, SELFPAY | PROVIDERS: PCP Family Medicine; Visit Provider Nurse Practitioner Family | DX: R33.9 Retention of urine, unspecified (principal); R35.0 Frequency of micturition; R39.12 Poor urinary stream; N39.43 Post-void dribbling; N32.89 Other specified disorders of bladder | CPT/HCPCS: 51798; 81003; 99212 ==

== ENCOUNTER → 2024-08-27 10:23 | Outpatient (REF) | payer OTHER, SELFPAY ==
--- NOTE | 2024-08-27 10:27 | HM_ITS ---
* Total procedure length 7 days. * Underlying rhythm is sinus with an average rate of 63/Min. * Rare supraventricular ectopy. * Rare ventricular ectopy. 2 runs, longest 3-4 beats. * No significant pauses or high-grade AV blocks. * No patient markers or diary events. MTDD
--- NOTE | 2024-08-27 10:27 | CA_ITS ---
Transthoracic Echocardiogram Patient (Last, First, Middle): Chriss Munoz, Gender: Male Date of : 1955 Age: 69 Procedure Date: 08/27/2024 Procedure Type: Transthoracic Echocardiogram Location: OP Height: 172. cm Weight: 74.39 kg BSA: 1.87 m2 Heart Rate: 64 bpm BP: 125 / 80 mmHg Inside Account Representative: DARBY Referring MD: Jenny Oden DIET SUPERVISOR-C Supervisor Inspecting: Paulie Viera MD Symptoms: I71.21 - Aneurysm of the ascending aorta, without rupture Study Quality: Fair ECG Rhythm: Sinus Conclusions: - 1. Normal LV ejection fraction of 60 65% with mild LVH with impaired relaxation filling pattern 2. Uuly-te-ywbxavjb aortic stenosis 3. Mildly dilated ascending aorta at 4.2 cm 4. Normal RV systolic pressure 5. No gross pericardial effusion Findings Left Ventricle Normal left ventricular size and systolic function. There is mildly increased left ventricular wall thickness. The visually estimated ejection fraction is between 60-65%. Spectral Doppler is indicative of an impaired relaxation filling pattern. Wall Motion Rest Echo Findings The basal inferior and basal inferolateral segments are hypokinetic. All other scored wall segments showed normal motion. Right Ventricle Normal right ventricular cavity size and systolic function. Atria Both atria are normal in size. There is no evidence of interatrial shunt. Aortic Valve There is mild calcification of the aortic valve. There is moderate thickening of the aortic valve. There is mild to moderate aortic valve stenosis. There is no aortic valve regurgitation. Mitral Valve There is mild anterior and posterior mitral leaflet thickening. There is mild mitral annular calcification. There is trace mitral valve regurgitation. There is no mitral valve stenosis. Pulmonic Valve The pulmonic valve is likely normal. Tricuspid Valve Normal tricuspid valve structure. There is trace tricuspid valve regurgitation. The right ventricular systolic pressure is normal. The right ventricular systolic pressure is 17 mmHg. Normal right atrial pressure. There is no evidence of pulmonary hypertension. Great Vessels The pulmonary artery was not well visualized. There is mild dilatation of the ascending aorta measuring 4.10 cm. Small plaque is seen in the sino tubular ridge. Venous The inferior vena cava is normal in size. Inferior vena cava flow is normal. Pericardium/Pleural There is no evidence of pericardial effusion. Prior Study Comparison No significant change compared to prior study dated: 09/05/2023. Measurements 2D Linear Measurements IVSd: 1.27 0.6-0.9/0.6-1.0 cm LVIDd: 4.29 3.9-5.3/4.2-5.9 cm LVIDd Index: 2.29 2.4-3.2/2.2-3.1 cm/m2 LVIDs: 2.55 2.0-3.6 cm LVPWd: 1.06 0.7-1.1 cm LA Diam: 3.90 2.7-3.8/3.0-4.0 cm LAIDs Index: 2.09 1.5-2.3 cm/m2 LV Mass: 219.61 67-162/88-224 g LV Mass Index: 117.44 43-95/49-115 g/m2 LVOT Diam: 1.80 3.0+(-)1.3 cm 2D Systolic Function EF 4C: 64.50 >55% EF 2C: 63.30 >55% EF BiP: 63.60 >55% Mitral Valve MV Pk E: 0.86 MV PK A: 0.79 MV Decel Time: 172.00 E/A: 1.10 E'Lateral: 8.59 E'Medial: 6.64 E/E' Med: 12.90 E/E' Lat: 10.00 PHT: 50.00 MVA PHT: 4.40 Decel [place]: 4.99 Aortic Valve AoV Pk Eze: 2.33 AoV Mn Eze: 1.62 AoV VTI: 0.52 AoV Pk Grad: 22.00 Aov Mn Grad: 12.00 HUSSEIN Cont.VTI: 1.09 LVOT LVOT Pk Eze: 1.01 LVOT Mn Eze: 0.69 LVOT VTI: 0.22 LVOT Pk Grad: 4.00 LVOT Mn Grad: 2.00 LVOT Diam: 1.80 LVOT Area: 2.54 Diastolic Function MV Pk E: 0.86 MV Pk A: 0.79 E/A: 1.10 E'Medial: 6.64 E/E' Med: 12.90 E' Laterial: 8.59 E/E' Lat: 10.00 Right Ventricle TAPSE (mm): 18.90 TVS' Eze: 9.14 Tricuspid Valve TR Pk Eze: 1.89 TR Pk Grad: 14.00 RA Press: 3.00 RVSP: 17.00 Great Vessels Aorta Sinus of Valsalva: 3.70 2.0-3.5 cm Ao Asc: 4.10 2.1-3.4 cm Ao Arch: 3.60 Pulmonary Valve PV Pk Eze: 0.99 Peak PV Grad: 4.00 Updated in Other Vendor System with Status of Final Paulie Viera MD electronically signed on 08/28/2024 12:04:42 PM with status of Final
== END ==
LOC: HO.CARD 10:23
PROVIDERS: Absent Provider Family Medicine; PCP Family Medicine; Visit Provider Nurse Practitioner Family
DX: I71.21 Aneurysm of the ascending aorta, without rupture (principal); I35.0 Nonrheumatic aortic (valve) stenosis; R00.2 Palpitations
CPT/HCPCS: 93242; 93306

== ENCOUNTER → 2024-08-27 10:27 | Outpatient (BNV) | payer OTHER, SELFPAY | PROVIDERS: Absent Provider Family Medicine; PCP Family Medicine; Visit Provider Internal Medicine Cardiovascular Disease | DX: I47.10 Supraventricular tachycardia, unspecified (principal) | CPT/HCPCS: 93244; 93306 ==

== ENCOUNTER 2024-09-07 13:32 | Emergency (ER) | payer OTHER, SELFPAY ==
--- NOTE | ~2024-09-07 | XR_ITS ---
EXAMINATION: XR CHEST CLINICAL INFORMATION: chest pain COMPARISON: Prior chest 05/03/2024 TECHNIQUE: Frontal view of the chest was obtained. FINDINGS: Slight increase in interstitial markings appears chronic. Lungs otherwise clear. No focal consolidation. Calcification of the dorsal aorta. Cardiac mediastinal silhouette unremarkable. XR/XR chest 1V IMPRESSION: No acute disease. No change Electronically signed by: José Luis Chanel MD 09/07/2024 03:29 PM ALFONSO
--- NOTE | 2024-09-07 13:46 | ECG_ITS ---
Test Reason : CP Blood Pressure : / mmHG Vent. Rate : 058 BPM Atrial Rate : 058 BPM P-R Int : 160 ms QRS Dur : 076 ms QT Int : 432 ms P-R-T Axes : 042 019 051 degrees QTc Int : 424 ms Sinus bradycardia Otherwise normal ECG When compared with ECG of 03-MAY-2024 09:09, No significant change was found Referred By: Generic ED Physician Electronically Signed By:LESA BURGER
[2024-09-07 13:58] VITALS: BP 172/96; PULSE 56; RESP 18; TEMP 37.1; O2SAT 99; BMI 24.0
--- NOTE | 2024-09-07 14:06 | ED_ITS ---
HPI - Chest Pain General Chief Complaint: Chest Pain Stated Complaint: CP Time Seen by Provider: 09/07/24 13:50 Source: patient and EMS Mode of arrival: EMS Limitations: no limitations History of Present Illness ED Provider: Dr. Kate oPst HPI narrative: patient comes to the emergency room complaining of chest pain that started approximately 5 hours ago. Patient states he was at rest. Patient states that he has been coughing quite a bit this morning. Denies fever chills, denies productive cough. Patient states that he took Tylenol prior to arrival and feels better. Related Data Home Medications ?Medication ?Instructions ?Recorded ?Confirmed fluticasone propionate 50 1 spray intranasal DAILY 08/06/20 07/16/24 mcg/actuation nasal spray,suspension acetaminophen 325 mg capsule 650 mg PO Q8H PRN fever or pain 10/19/23 07/16/24 (Tylenol) amlodipine 10 mg tablet 10 mg PO DAILY 05/03/24 07/16/24 atorvastatin 10 mg tablet 10 mg PO BEDTIME 05/03/24 07/16/24 buspirone 30 mg tablet 30 mg PO BID 05/03/24 07/16/24 cholecalciferol (vitamin D3) 50 50 mcg PO DAILY 05/03/24 07/16/24 mcg (2,000 unit) capsule (Vitamin D3) docusate sodium 100 mg capsule 100 mg PO BID 05/03/24 07/16/24 folic acid 1 mg tablet 1 mg PO DAILY 05/03/24 07/16/24 gabapentin 300 mg capsule 300 mg PO DAILY 05/03/24 07/16/24 hydralazine 50 mg tablet 50 mg PO TID 05/03/24 07/16/24 loratadine 10 mg tablet 10 mg PO DAILY 05/03/24 07/16/24 mirtazapine 45 mg tablet 45 mg PO BEDTIME 05/03/24 07/16/24 omeprazole 20 mg capsule,delayed 20 mg PO DAILY 05/03/24 07/16/24 release phenytoin sodium extended 100 mg 100 mg PO TID 05/03/24 07/16/24 capsule thiamine HCl (vitamin B1) 100 mg 100 mg PO QAM 05/03/24 07/16/24 tablet warfarin 1 mg tablet 5 mg PO QWEEK 05/03/24 07/16/24 warfarin 4 mg tablet 4 mg PO DAILY 05/03/24 07/16/24 Previous Rx's ?Medication ?Instructions ?Recorded finasteride 5 mg tablet 5 mg PO DAILY 90 days #90 tabs 07/16/24 terazosin 5 mg capsule 5 mg PO BEDTIME 90 days #90 caps 07/16/24 Allergies Allergy/AdvReac Type Severity Reaction Status Date / Time ibuprofen [From Motrin] Allergy Intermediate Unknown Verified 09/07/24 14:02 acetaminophen [From Percocet] Allergy Unknown Verified 09/07/24 14:02 oxycodone Allergy Unknown Verified 09/07/24 14:02 Review of Systems 2 Review of Systems: Constitutional : No Weight loss, No Fever, No Chills, No Night Sweats, No Fatigue, No Malaise ENT/Mouth : No Hearing loss, No Ear Pain, No Nasal Congestion, No Sinus Pain, No Hoarseness, No sore throat, No Rhinorrhea, No Swallowing Difficulty Eyes: No Eye Pain, No Swelling, No Redness, No Foreign Body, No Discharge, No Vision Changes Cardiovascular : Complaining of Chest Pain, No SOB, No Dyspnea on Exertion, No Orthopnea, No Edema, No Palpitations Respiratory : No Cough, No Sputum, No Wheezing, No Smoke Exposure, No Dyspnea Gastrointestinal : No Nausea, No Vomiting, No Diarrhea, No Constipation, No abdominal Pain, No Hematochezia, No Melena Genitourinary : no irregular bleeding, No Dysuria, No Urinary Frequency, No Hematuria, No Urinary Incontinence, No Urgency, No Flank Pain, No Urinary Flow Changes, No Hesitancy Musculoskeletal : No joint pain, No Myalgias, No Joint Swelling Skin : No Skin Lesions, No rash Neuro : No Weakness, No Numbness, No Paresthesias, No Loss of Consciousness, No Dizziness, No Headache Psych : No Anxiety/Panic, No Depression, No SI/HI/AH/VH, No Social Issues, Heme/Lymph: No Bruising, No Bleeding,No Lymphadenopathy Endocrine : No Polyuria, No Polydipsia, No Temperature Intolerance [facility] Past Medical History Medical History Ascending aortic aneurysm Colon cancer screening Hemorrhoid Aortic aneurysm GERD (gastroesophageal reflux disease) Chronic anticoagulation Alcohol abuse Mood disorder Mood disorder due to a general medical condition Peripheral vascular disease DVT (deep venous thrombosis) Hyperhomocysteinemia CKD (chronic kidney disease) Depression Seizure Surgical History Hx of colonoscopy Hx of hernia repair Family History Family History Paternal Grandmother Cancer Maternal Grandfather Cancer Paternal Aunt Cancer Social History Social History Household Members: None Housing: Apartment Are you a primary certified caregiver to a significant other at home: No Do you presently have visiting nurse or other home services: No Alcohol intake: current Alcohol intake frequency: holidays/special occasions only Alcohol type: beer Patient Tobacco Use Status: Never used Tobacco Advance Directives: Yes Advance Directives on File: Yes Advance Directives Date on File: 10/01/20 service: No Current occupational status: disabled Physical Exam 2 Vital Signs: Vital Signs: Last Vital Signs Temp 98.9 F 09/07/24 15:09 Pulse 78 09/07/24 15:09 Resp 18 09/07/24 15:09 BP 110/59 L 09/07/24 15:09 Pulse Ox 100 09/07/24 15:09 O2 Del Method Room Air 09/07/24 15:09 BMI result Body Mass Index 24.0 Const: Other: Appearance: Alert. Oriented X3. No acute distress. Eyes: Pupils equal, round and reactive to light. ENT: Pharynx normal. Neck: Normal inspection. Neck supple. No lymph nodes noted. No crepitus CVS: Normal heart rate and rhythm. Pulses normal. Normal S1 and S2 Respiratory: No respiratory distress. Breath sounds normal. No Wheezing. No rales Abdomen: Soft and nontender. No rigidity. No distention. Skin: Skin warm and dry. Normal skin color. Normal skin turgor. Extremities: No lower extremity edema. No Lacerations. No Rash Neuro: Oriented X 3. No motor deficit. No sensory deficit. Moving all extremities. No slurred speech. CN 2 through 12 grossly intact Psych: calm, cooperative, normal affect Course Course Course Narrative: on arrival, patient states that the chest pain is nearly gone. Patient took Tylenol prior to arrival - EKG, x-rays and labs pending Medical Decision Making Medical Decision Making MDM Narrative: my interpretation of labs, normal hematology, normal chemistry, at baseline troponin - chest x-ray : no obvious abnormality - repeated troponin negative - my interpretation of EKG: Sinus bradycardia, 155, no ST segment depression or elevation, no T-wave inversion, QTC 417' - patient feels well, no longer having any chest pain. - I reviewed patient's medical chart, patient has had multiple visits to the emergency room complaining of chest pain, his workups have been negative. Patient likely has musculoskeletal chest pain versus pleurisy - patient has history of AAA. AAA ruptured not suspected. Patient is very stable, asymptomatic, stable blood pressure, pain responded well to 1 dose of p.o. Tylenol which patient took prior to arrival Differential Diagnosis Differential Diagnoses: The differential diagnosis associated with the presentation includes Admission/Observation Consideration of admission/observation: Escalation of care including admission/observation considered ( given patient's past medical history and presentation, observation was considered) Lab Data MDM Lab Attestation statement: I reviewed the patient's lab results. 09/07/24 14:10 09/07/24 14:10 Labs: Lab Results 09/07/24 09/07/24 Range/Units 14:10 17:38 WBC 4.1 L (4.8-10.8) X10*3/uL RBC 4.90 (4.60-5.80) X10*6/uL Hgb 16.5 (14.0-18.0) g/dl Hct 48.3 (42.0-52.0) % MCV 98.6 H (80.0-98.0) fL MCH 33.7 H (27.0-33.0) pg MCHC 34.2 (31.0-36.0) g/dl RDW 12.2 (11.0-16.0) % Plt Count 118 L (160-400) X10*3/uL MPV 9.9 (9.4-12.4) fL Immature Gran % (Auto) 0.2 (0.0-0.4) % Neut % (Auto) 65.8 (45-73) % Lymph % (Auto) 18.0 L (20-40) % [place] % (Auto) 9.1 (2-11) % Eos % (Auto) 6.2 H (0-4) % Baso % (Auto) 0.7 (0-2) % Lymph # (Auto) 0.7 L (1.2-4.9) X10*3/uL [place] # (Auto) 0.4 (0.1-1.2) X10*3/uL Eos # (Auto) 0.3 (0.0-0.4) X10*3/uL Baso # (Auto) 0.0 (0.0-0.2) X10*3/uL Abs Immat Gran (auto) 0.01 (0.00-0.03) X10*3/uL Absolute Neuts (auto) 2.7 (2.0-8.3) x10*3/uL Absolute Nucleated RBC 0.000 (0.0-0.012) X10*3/uL Nucleated RBC % (auto) 0.0 (0.0-0.2) /100WBC Sodium 139 (135-145) mmol/L Potassium 4.7 (3.3-5.1) mmol/L Chloride 106 (96-108) mmol/L Carbon Dioxide 27 (22-29) mmol/L Anion Gap 11 L (12-20) BUN 22 H (9-16) mg/dL Creatinine 1.72 H (0.5-1.4) mg/dL Estim Creat Clear Calc 39.3 Estimated GFR 39 Random Glucose 88 (60-115) mg/dL Calcium 9.5 (8.4-10.2) mg/dL Total Bilirubin 0.4 (0.0-1.0) mg/dL AST 23 (5-37) U/L ALT 24 (0-40) U/L Alkaline Phosphatase 65 (39-117) U/L Troponin I High Sens 10.3 10.5 (<3.5-35.0) ng/L B-Natriuretic Peptide 50 (<100) pg/mL Total Protein 7.2 (6.5-8.0) g/dL Albumin 4.0 (3.5-5.0) g/dL Independent Interpretation I performed an independent interpretation of an: Plain X-Ray Radiology Impression Discussion of test interpretation with radiology: I have reviewed the radiologist's reading. Radiologist Impression: Slight increase in interstitial markings appears chronic. Lungs otherwise clear. No focal consolidation. Calcification of the dorsal aorta. Cardiac mediastinal silhouette unremarkable. XR/XR chest 1V IMPRESSION: No acute disease. No change Independent Historian Clinical information obtained from an independent historian. History obtained from or confirmed by: EMS Critical Care Time Critical Care Time Critical Care Time: Yes Total Critical Care Time: 35 Attestation: I have personally provided critical care time. Time includes review of lab data, radiology results, discussion with consultants, and monitoring for potential decompensation. Intervention performed as documented. Discharge Plan Discharge Clinical Impression: Atypical chest pain Patient Disposition: Home, Self-Care Instructions: Chest Wall Pain (ED), Chest Pain (ED) Additional Instructions: Please follow-up with your primary care physician tomorrow. If you have any worsening or new symptoms, please return to the emergency room or call 911 Prescriptions: No Action fluticasone propionate 50 mcg/actuation spray,suspension 1 spray intranasal DAILY acetaminophen [Tylenol] 325 mg capsule 650 mg PO Q8H PRN (Reason: fever or pain) amlodipine 10 mg tablet 10 mg PO DAILY atorvastatin 10 mg tablet 10 mg PO BEDTIME buspirone 30 mg tablet 30 mg PO BID thiamine HCl (vitamin B1) 100 mg tablet 100 mg PO QAM phenytoin sodium extended 100 mg capsule 100 mg PO TID warfarin 4 mg tablet 4 mg PO DAILY docusate sodium 100 mg capsule 100 mg PO BID gabapentin 300 mg capsule 300 mg PO DAILY omeprazole 20 mg capsule,delayed release(DR/EC) 20 mg PO DAILY mirtazapine 45 mg tablet 45 mg PO BEDTIME folic acid 1 mg tablet 1 mg PO DAILY hydralazine 50 mg tablet 50 mg PO TID warfarin 1 mg tablet 5 mg PO QWEEK Rx Instructions: 5mg on loratadine 10 mg tablet 10 mg PO DAILY cholecalciferol (vitamin D3) [Vitamin D3] 50 mcg (2,000 unit) capsule 50 mcg PO DAILY finasteride 5 mg tablet 5 mg PO DAILY 90 Days Qty: 90 3RF terazosin 5 mg capsule 5 mg PO BEDTIME 90 Days Qty: 90 3RF Print Language: [place]
--- NOTE | 2024-09-07 14:07 | ECG_ITS ---
Test Reason : CHEST PAIN Blood Pressure : / mmHG Vent. Rate : 055 BPM Atrial Rate : 055 BPM P-R Int : 164 ms QRS Dur : 078 ms QT Int : 436 ms P-R-T Axes : 050 024 058 degrees QTc Int : 417 ms Sinus bradycardia Otherwise normal ECG When compared with ECG of 07-SEP-2024 13:45, No significant change was found Referred By: Kate Post Electronically Signed By:LESA BURGER
[2024-09-07 14:14] LABS: MANUAL DIFF FLAG NO
[2024-09-07 14:17] LABS: Basophils Percent Auto 0.7 % (0-2); Eosinophils Absolute Auto 0.3 X10*3/uL (0.0-0.4); Eosinophils Percent Auto 6.2 % (0-4); Hematocrit 48.3 % (42.0-52.0); Hemoglobin 16.5 g/dl (14.0-18.0); Imm Gran Abs Auto 0.01 X10*3/uL (0.00-0.03); Imm Gran Pct Auto 0.2 % (0.0-0.4); Lymphocytes Absolute Auto 0.7 X10*3/uL (1.2-4.9); Mean Corpuscular HGB Conc 34.2 g/dl (31.0-36.0); Mean Corpuscular Hemoglobin 33.7 pg (27.0-33.0); Mean Corpuscular Volume 98.6 fL (80.0-98.0); Mean Platelet Volume 9.9 fL (9.4-12.4); Monocytes Absolute Auto 0.4 X10*3/uL (0.1-1.2); Monocytes Percent Auto 9.1 % (2-11); Neutrophils Absolute Auto 2.7 x10*3/uL (2.0-8.3); Neutrophils Percent Auto 65.8 % (45-73); Platelet Count 118 X10*3/uL (160-400); Red Cell Distribution Width 12.2 % (11.0-16.0); White Blood Count 4.1 X10*3/uL (4.8-10.8)
[2024-09-07 14:36] LABS: Alanine Aminotransferase 24 U/L (0-40); Alkaline Phosphatase 65 U/L (39-117); Anion Gap 11 (12-20); Aspartate Amino Transferase 23 U/L (5-37); Bilirubin Total 0.4 mg/dL (0.0-1.0); Blood Urea Nitrogen 22 mg/dL (9-16); Calcium 9.5 mg/dL (8.4-10.2); Carbon Dioxide 27 mmol/L (22-29); Chloride 106 mmol/L (96-108); Creatinine Clr Calc Pharmacy 39.3; Estimated Glomerular Filt Rate 39; Glucose Random 88 mg/dL (60-115); Potassium 4.7 mmol/L (3.3-5.1); Sodium 139 mmol/L (135-145); Total Protein 7.2 g/dL (6.5-8.0)
[2024-09-07 14:43] LABS: Troponin-I High Sensitivity 10.3 ng/L (<3.5-35.0)
[2024-09-07 15:09] VITALS: BP 110/59; PULSE 78; RESP 18; TEMP 37.2; O2SAT 100
[2024-09-07 15:10] LABS: B Type Natriuretic Peptide 50 pg/mL (<100)
[2024-09-07 18:10] LABS: Troponin-I High Sensitivity 10.5 ng/L (<3.5-35.0)
[2024-09-07 18:20] LABS: INTERNATIONAL NORM RATIO 1.6 (0.9-1.1); Prothrombin Time 18.4 SEC (10.9-12.4)
[2024-09-07 18:47] VITALS: BP 155/100; PULSE 68; RESP 14; TEMP 36.6; O2SAT 95
[2024-09-07 19:08] VITALS: BP 155/100; PULSE 68; RESP 14; TEMP 36.6; O2SAT 95
== END 2024-09-07 19:08 | disposition home or self-care (01) ==
PROVIDERS: Emergency Provider Emergency Medicine
DX: R07.89 Other chest pain (principal); R06.02 Shortness of breath; Z79.899 Other long term (current) drug therapy
CPT/HCPCS: 36415; 71045; 80053; 83880; 84484; 85025; 85610; 93005; 99283

== ENCOUNTER → 2024-09-07 13:46 | Outpatient (BNV) | payer OTHER, SELFPAY | PROVIDERS: Emergency Provider Emergency Medicine; Visit Provider Internal Medicine | DX: R00.1 Bradycardia, unspecified (principal); R07.9 Chest pain, unspecified | CPT/HCPCS: 93010 ==

== ENCOUNTER 2025-01-14 10:10 | Outpatient (AMB) | payer OTHER, SELFPAY ==
--- NOTE | 2025-01-14 10:14 | A.OFFVIS_ITS ---
Intake Visit Reasons: 6m/PVR Intake Note: Patient presents for follow up visit for 6 month follow up/PVR. Urology Medications: terazosin, finasteride Blood Thinner: warfarin PVR: 38ml [employer] Required: Yes [employer] Name: Karishma [id number] Accompanied by: Self / Same As Patient Allergies ibuprofen [From Motrin] Allergy (Intermediate, Verified 01/14/25 10:59) Unknown acetaminophen [From Percocet] Allergy (Verified 01/14/25 10:59) Unknown oxycodone Allergy (Verified 01/14/25 10:59) Unknown Medication List - Last Reconciled 01/14/25 by MARCIA Hernandez acetaminophen (Tylenol) 650 mg PO Q8H PRN amlodipine 10 mg PO DAILY atorvastatin 10 mg PO BEDTIME buspirone 30 mg PO BID cholecalciferol (vitamin D3) (Vitamin D3) 50 mcg PO DAILY docusate sodium 100 mg PO BID finasteride 5 mg PO DAILY 90 days fluticasone propionate 50 mcg/actuation 1 spray intranasal DAILY folic acid 1 mg PO DAILY gabapentin 300 mg PO DAILY hydralazine 50 mg PO TID loratadine 10 mg PO DAILY mirtazapine 45 mg PO BEDTIME omeprazole 20 mg PO DAILY phenytoin sodium extended 100 mg PO TID terazosin 5 mg PO BEDTIME 90 days thiamine HCl (vitamin B1) 100 mg PO QAM warfarin 5 mg PO QWEEK warfarin 4 mg PO DAILY HPI Comments Details: Chriss is a 69-year-old [place]-speaking male patient of Dr. Ngo. He has a past medical history of alcohol abuse, aortic aneurysm, chronic anticoagulation, chronic kidney disease, depression, DVT, GERD, hemorrhoids, mood disorder, PVD, and seizures. He presents to the office today for follow-up of his lower urinary tract symptoms. In discussion with the patient today he reports to be doing and feeling well. He reports compliance with terazosin and finasteride as prescribed. He denies having had any bothersome urinary issues or concerns since his last office visit here. Previous workup has included a retroperitoneal ultrasound 07/02 noting right kidney with no calculi or hydronephrosis. There is lower pole laterally 0.8 x 0.6 x 0.7 cm cortical cyst. 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 Left kidney with no calculi or hydronephrosis. There are 3 cysts identified laterally 1.7 x 1.8 x 1.5 cm and laterally in the upper pole 1.5 x 1.2 x 1.5 cm, there is 1.6 x 1.6 x 1.7 cm cyst in the middle aspect of the cortex. The urinary bladder is well distended with trabeculated wall. Bilateral ureteral jets are demonstrated. Pre void bladder volume is approximately 240 mL. Postvoid bladder volume is approximately 20 mL. Prostate volume is approximately 30 mL. In office urinalysis results reviewed with the patient today. PVR 38mLs. He otherwise denies incontinence, nocturia, hematuria, dysuria, foul-smelling urine, flank pain, fever, and or chills. PSAs are as follows: 08/29 3.0, 12/03 3.6, 08/02 1.7 PFSH Medical History Ascending aortic aneurysm Colon cancer screening Hemorrhoid Aortic aneurysm GERD (gastroesophageal reflux disease) Chronic anticoagulation Alcohol abuse Mood disorder Mood disorder due to a general medical condition Peripheral vascular disease DVT (deep venous thrombosis) Hyperhomocysteinemia CKD (chronic kidney disease) Depression Seizure Surgical History Hx of colonoscopy Hx of hernia repair Family History Paternal Grandmother Cancer Maternal Grandfather Cancer Paternal Aunt Cancer Social History Household Members: None Housing: Apartment Are you a primary day care worker to a significant other at home: No Do you presently have visiting nurse or other home services: No Alcohol intake: current Alcohol intake frequency: holidays/special occasions only Alcohol type: beer Patient Tobacco Use Status: Never used Tobacco Advance Directives Date on File: 10/01/20 service: No Current occupational status: disabled Review of Systems Const All systems reviewed & are unremarkable except as noted in HPI and below Reports as per HPI Eyes Reports no additional complaints ENT Reports no additional complaints Card Reports as per HPI Resp Reports no additional complaints GI Reports as per HPI Reports as per HPI Musc Reports no additional complaints Neuro Reports as per HPI Psych Reports as per HPI Endo Reports as per HPI Patrick/Lymph Reports as per HPI Physical Exam Const General: cooperative, healthy appearing, comfortable, no acute distress, well developed, alert and awake Nutritional Appearance: average body habitus Orientation/consciousness: patient oriented x3 Limitations: no limitations HEENT Head: Yes normal to inspection, Yes normocephalic and Yes atraumatic Ears: hearing grossly normal bilaterally Eyes General: appearance normal, both eyes and all related structures Neck Neck: Yes normal visual inspection and Yes trachea midline Chest Chest palpation & inspection: normal inspection of the chest Resp Effort & Inspection: normal respiratory effort and able to speak in complete sentences Cardio Rate: regular rate GI Inspection: Yes normal to inspection Rectal Exam - Male: Yes deferred General: Yes no CVA tenderness Back/Spine/Pelvis Back: no CVA tenderness Skin General skin exam: no rashes or lesions noted Neuro General: patient oriented x3 Extrem General: Yes normal to inspection Psych Appearance: grossly normal and well kempt Mental Status: mental status grossly normal Speech and movement: Normal speech and movement present and Clear speech present Affect: normal affect Attitude: cooperative Thought process: Normal thought process present Thought content: Normal thought content present Insight: Fair insight present (Psych) Judgement: Fair judgement present (Psych) Office Procedures Post Void Residual Post Residual Void Post Void Residual (PVR): 38 15127-Eqoa Void Residual by ultrasound Results AMB Urinalysis, Automated UA Leukoctes 0 Briana/uL Last Edit by Lupe Ching CMA on 01/14/25 10:34 UA Nitrite Negative Last Edit by Lupe Ching CMA on 01/14/25 10:34 UA Urobilinogen 0.2 mg/dL Last Edit by Lupe Chnig CMA on 01/14/25 10:34 UA Protein 30 mg/dL Last Edit by Lupe Ching CMA on 01/14/25 10:34 UA pH 6.0 Last Edit by Lupe Ching CMA on 01/14/25 10:34 UA Blood 0 Daniel/uL Last Edit by Lupe Ching CMA on 01/14/25 10:34 UA Specific Luna 1.015 Last Edit by Lupe Ching CMA on 01/14/25 10:34 UA Ketone Negative Last Edit by Lupe Ching CMA on 01/14/25 10:34 UA Bilirubin 0 mg/dL Last Edit by Lupe Ching CMA on 01/14/25 10:34 UA Glucose 0 mg/dL Last Edit by Lupe Ching CMA on 01/14/25 10:34 Results Reviewed Results Reviewed: Laboratory Last Values Urine pH (Auto) 6.0 01/14/25 10:28 Specific Luna (Auto) 1.015 01/14/25 10:28 Urine Protein (Auto) 30 mg/dL 01/14/25 10:28 Glucose (UA)(Auto) 0 mg/dL 01/14/25 10:28 Urine Ketones (Auto) Negative 01/14/25 10:28 Urine Blood (Auto) 0 Daniel/uL 01/14/25 10:28 Urine Nitrite (Auto) Negative 01/14/25 10:28 Urine Bilirubin (Auto) 0 mg/dL 01/14/25 10:28 Urine Urobilinogen (Auto) 0.2 mg/dL 01/14/25 10:28 Leukocyte Esterase (Auto) 0 Briana/uL 01/14/25 10:28 Assessment & Plan Assessment & Plan (1) Urinary frequency: Code(s): R35.0 - Frequency of micturition Category: Medical (2) Bladder trabeculation: Code(s): N32.89 - Other specified disorders of bladder Category: Medical (3) Renal cyst: Code(s): N28.1 - Cyst of kidney, acquired Category: Medical (4) Incomplete bladder emptying: Code(s): R33.9 - Retention of urine, unspecified Category: Medical Plan In office urinalysis results reviewed with the patient today; as noted above. PVR 38 mL. He currently denies any bothersome urinary issues or concerns. He reports be happy with current voiding parameters. Continue terazosin and finasteride as prescribed. Will continue with surveillance monitoring. Follow-up in 6 months with PSA and PVR; or sooner with any issues, concerns, and or questions. Orders: Orders Prostate Specific Antigen 6 Months R39.12 - Poor urinary stream AMB Urinalysis Automated Today R35.0 - Frequency of micturition AMB Post Void Residual by ultrasound Today R33.9 - Retention of urine, unspecified Medications: Refilled terazosin 5 mg PO BEDTIME 90 days 90 caps 3RF finasteride 5 mg PO DAILY 90 days 90 tabs 3RF Patient Instructions: The patient had an opportunity to ask questions regarding the treatment plan. All questions were answered. Physical exam, labs, and imaging were discussed and reviewed in detail. As well as risks, benefits, and discussion of treatment choices. No major barriers to understanding were identified. The patient expressed understanding and agreement with the above treatment plan. The patient was made aware they should contact our office by phone for worsening of their current condition, the appearance of new symptoms, or with any questions or concerns. Compliance is encouraged with any medications and follow up testing that is ordered. It is a privilege to be allowed the opportunity to participate in? your urological care.? Again, if you have any questions or concerns If you have any questions or concerns please do not hesitate to contact me. The office is [phone]. This note is constructed using voice recognition software. While every effort has been made to ensure accuracy greens planter errors may have been included. Yours sincerely, MARCIA Hernandez Coding Level of Care Code Est Pt Level 3 (33031) Complex EM visit Add On G2211 Diagnoses Urinary frequency R35.0 Bladder trabeculation N32.89 Renal cyst N28.1 Incomplete bladder emptying R33.9 CPT Codes Post Residual Void - PVR CPT Code: 81613-Lrbz Void Residual by ultrasound ([id number])
--- OUTSIDE RECORDS SUMMARY | 2025-01-14 11:50 | XMS_ITS | Encounter Summary ---
Author Organization [employer] Address [address] [place] [address] Care Team Providers Care Assistant Grocery Store Manager Name Role Phone Veronica Gallardo MD Primary Care Provider [phone] Brien Vargas PharmD Unavailable [phone] Encounter Details Date Type Department Care Team (Late st Contact Info) Description 11/04/[address] [facility] MED[facility] [address] [place], [place] [phone] Veronica Gallardo MD [address] [place], [place] [phone] Alcohol use disorder, moderate, in early remission (CMS/HCC) (Primary Dx) Social History Tobacco Use Types Packs/Day Years Used Date Smoking Tobacco: Never Smokeless Tobacco: Never Depression Answer Date Recorded Patient Health Questionnaire-9 Score 0 03/24/2023 Housing Stability Answer Date Recorded What is your housing situation today? I have primo thomas 07/29/[address] you li ve. Do you have problems with any of the following? None of the above 07/29/2023 Food Insecurity Answer Date Recorded Within the past 12 months, y ou worried that your food would run out before you got money to buy more: Never True 07/29/2023 Within the past 12 months,th e food you bought just didn't last and you didn't have enough money to get more: Never True Transportation Answer Date Recorded In the past 12 months, has l ack of transportation kept you from medical appts, meetings, work or from getting things needed for daily living? No 07/29/2023 Utilities Answer Date Recorded In the past 12 months, has t he electric, gas, oil or water company threatened to shut off services in your home? No 07/29/2023 Depression Answer Date Recorded Patient Health Questionnaire-2 Score 0 03/24/2023 Sex and Gender Information Value Date Recorded Sex Assigned at Male 08/09/2022 10:14 AM EDT Legal Sex Male 10:14 AM EDT Gender Identity Male 08/09/2022 10:14 AM EDT Sexual Orientation Straight 08/09/2022 10 :14 AM EDT documented as of this encounter Plan of Treatment Upcoming Encounters Date Type Department Care Team (Late st Contact Info) Description 04/11/2025 11:00 AM EDT Medication Management [facility]INE [address] [place] [address] Brien Vargas, Efrain [address] [place] [address] documented as of this encounter Goals Goal Patient Goal Type Associated Problems Recent Progress Patient-Stated? Author Blood Pressure < 140/90 Blood Pressure 123/83( 025 10:38 AM EST) No Brien Vargas, PharmDonte documented as of this encounter Visit Diagnoses Diagnosis Alcohol use disorder, moderate, in early remission (CMS/HCC)- Primary documented in this encounter Additional Health Concerns Assessment Noted Time PHQ-9 Depression Total Score: 0 03/24/20 11:18 AM EDT documented as of this encounter Care Teams Assistant Grocery Store Manager Relationship Specialty Start Date End Date Veronica Gallardo MD [address] [place] [address] PCP - General Family Medicine 08/09/12 Brien Vargas, PharmD [address] [place] [phone] Pharmacist Internal Medicine 11/30/22 documented as of this encounter
--- OUTSIDE RECORDS SUMMARY | 2025-01-14 11:50 | XMS_ITS | Encounter Summary ---
Author Organization [employer] [facility] Address [address] [place] [address] Care Team Providers Care Faculty Dean Name Role Phone Veronica Gallardo MD Primary Care Provider [phone] Brien Vargas PharmD Unavailable [phone] Reason for Visit * Reason Comments Med Refill Encounter Details Date Type Department Care Team (Late st Contact Info) Description 08/14/2023 Refill [facility] MEDICINE [address] [place], [place] [phone] Brien Vargas, PharmD [address] [place], [place] [phone] Essential hypertension Social History Tobacco Use Types Packs/Day Years [...] AM EDT documented as of this encounter Miscellaneous Notes * Telephone Encounter - Brien Vargas PharmD - 08/23/2023 11:57 AM EST [facility] will send 1 month fill of hydralazine 25 mg PO TID. Patient rescheduled last cardiology and nephrology visits. Needs to keep upcoming CDTM visit 09/09/2023. documented in this encounter Plan of Treatment Upcoming Encounters Date Type Department Care Team (Late st Contact Info) Description 04/11/2025 11:00 AM EDT Medication Management [facility] MEDICINE [address] [place] [address] Brien Vargas PharmD [address] [place] [address] documented as of this encounter Goals Goal Patient Goal Type Associated Problems Recent Progress Patient-Stated? Author Blood Pressure < 140/90 Blood Pressure 123/83( 025 10:38 AM EST) No Brien Vargas PharmD documented as of this encounter Visit Diagnoses Diagnosis Essential hypertension Unspecified essential hypertension documented in this encounter Additional Health Concerns Assessment Noted Time PHQ-9 Depression Total Score: 0 03/24/20 23 11:18 AM EDT documented as of this encounter Care Teams Faculty Dean Relationship Specialty Start Date End Date Veronica Gallardo MD [address] [place] [phone] PCP - General Family Medicine 08/09/12 Brien Vargas PharmD [address] [place] [phone] Pharmacist Internal Medicine 11/30/22 documented as of this encounter
--- OUTSIDE RECORDS SUMMARY | 2025-01-14 11:50 | XMS_ITS | Encounter Summary ---
Author Organization [facility] Address [address] [place] [address] Care Team Providers Care Sr. Pricing Analyst Name Role Phone Veronica Gallardo MD Primary Care Provider [phone] Brien Vargas PharmD Unavailable [phone] Reason for Referral * Consultation (Routine) - Authorized Specialty Diagnoses / Procedures Referred By Contac t Referred To Contact Pharmacy Diagnoses Hypertension, unspecified type Veronica Gallardo MD [address] [place] [phone] Phone: tel: fax: Referral ID Status Reason Start Date Expiration Date Visits Requested Visits Authorized [id number] Authorized Consult and Treat 10/12/2024 10/12/2025 6 6 Encounter Details Date Type Department Care Team (Late st Contact Info) Description 10/12/2024 Orders Only [facility] MEDICINE [address] [place] [phone] Veronica Gallardo MD [address] [place] [address] [phone] Hypertension, unspecified type (Primary Dx) Social History Tobacco Use Types Packs/Day Years Used Date Smoking Tobacco: Never Smokeless Tobacco: Never Depression Answer Date Recorded Patient Health Questionnaire-9 Score 0 03/24/2023 Housing Stability Answer Date Recorded What is your housing situation today? I have primo thomas 03/13/[address] you li ve. Do you have problems with any of the following? None of the above 03/13/2024 Food Insecurity Answer Date Recorded Within the past 12 months, y ou worried that your food would run out before you got money to buy more: Never True 03/13/2024 Within the past 12 months,th e food you bought just didn't last and you didn't have enough money to get more: Never True 01/2024 Transportation Answer Date Recorded In the past 12 months, has l ack of transportation kept you from medical appts, meetings, work or from getting things needed for daily living? No 03/13/2024 Utilities Answer Date Recorded In the past 12 months, has t he electric, gas, oil or water company threatened to shut off services in your home? No 03/13/2024 Depression Answer Date Recorded Patient Health Questionnaire-2 [...] Description 04/11/2025 11:00 AM EDT Medication Management [facility] MEDICINE [address] [place] [address] Brien Vargas PharmD [address] [place] [address] Scheduled Referrals Name Type Priority Associated Diagnoses Orde r Schedule Referral to Pharmacy CDTM Outpatient Referral Routine Hypertension, unspecified type Ordered: 10/12/2024 documented as of this encounter Goals Goal Patient Goal Type Associated Problems Recent Progress Patient-Stated? Author Blood Pressure < 140/90 Blood Pressure 123/83( 025 10:38 AM EST) No Brien Vargas, PharmD documented as of this encounter Visit Diagnoses Diagnosis Hypertension, unspecified type- Primary documented in this encounter Additional Health Concerns Assessment Noted Time PHQ-9 Depression Total Score: 0 03/24/20 23 11:18 AM EDT documented as of this encounter Care Teams Sr. Pricing Analyst Relationship Specialty Start Date End Date Veronica Gallardo MD [address] [place] [address] PCP - General Family Medicine 08/09/12 Brien Vargas, PallaviD [address] [place] [address] Pharmacist Internal Medicine 11/30/22 documented as of this encounter
--- OUTSIDE RECORDS SUMMARY | 2025-01-14 11:50 | XMS_ITS | Clinical Summary ---
Author Organization [employer] Address [address] [facility] [address] [place] [address] Care Team Providers Care Rn Pediatric Name Role Phone Veronica Gallardo MD Primary Care Provider [phone] Brien Vargas PharmD Unavailable [phone] Allergies Active Allergy Reactions Criticality Noted Date Comments Acetaminophen 03/23/2012 Ibuprofen 09/16/2022 Oxycodone 03/23/2012 Oxycodone-Acetaminophen 09/16/2022 Medications busPIRone (Buspar) 30 MG tablet TAKE 1 TABLET BY MOUTH TWICE DAILY IN THE MORNING AND IN THE EVENING 10/26/19 23 Active mirtazapine (Remeron) 45 MG tablet Take 45 mg by mouth at bedtime. 10/26/19 23 Active fluticasone (Flonase) 50 MCG/ACT nasal spray USE 1 SPRAY IN EACH NOSTRIL EVERY DAY 48 g 03/17/20 23 Active acetaminophen (Tylenol 8 Hour) 650 MG ER tabletIndication s:Intercostal pain TAKE 1 TABLET BY MOUTH EVERY 8 HOURS NEEDED FOR MILD PAIN FOR UP TO 10 DAYS, DO NOT BREAK, CRUSH, DISSOLVE OR CHEW 30 tablet 04/04/20 23 Active Additional Information Patient not taking.Reported on 09/09/2023 naltrexone (Depade) 50 MG tablet TAKE 1 TABLET BY MOUTH ONCE DAILY. WITH BREAD. 30 tablet 11 09/15/20 23 Active hydrocortisone 2.5 % cream APPLY TOPICALLY TWICE DAILY 20 g 1 02/06/20 24 Active finasteride (Proscar) 5 MG tablet Take 5 mg by mouth in the morning. 02/27/20 24 Active terazosin (Hytrin) 5 MG capsule Take 5 mg by mouth at bedtime. 03/21/20 24 Active atorvastatin (Lipitor) 10 MG tablet TAKE 1 TABLET BY MOUTH AT BEDTIME 90 tablet 3 04/23/20 24 Active hydrALAZINE (Apresoline) 50 MG tabletIndication s:Hypertension, unspecified type Take 1 tablet by mouth three times daily 270 tablet 3 04/25/20 24 Active amLODIPine (Norvasc) 10 MG tabletIndication s:Hypertension, unspecified type Take 1 tablet (10 mg) by mouth at bedtime. 90 tablet 3 04/25/20 24 Active warfarin (Coumadin) 4 MG tablet TAKE 1 TABLET BY MOUTH ONCE DAILY DIRECTED 30 tablet 11 05/14/20 24 Active docusate sodium (Colace) 100 MG capsuleIndicatio ns:Chronic idiopathic constipation TAKE 1 CAPSULE BY MOUTH TWICE DAILY 180 capsule 1 06/12/20 24 Active clobetasol (Temovate) 0.05 % ointment Apply topically 2 times daily. 60 g 06/21/20 24 Active hydrOXYzine pamoate (Vistaril) 25 MG capsule Take 1 capsule (25 mg) by mouth every 6 (six) hours if needed for itching. 60 capsule 1 06/21/20 24 Active D3 Super Strength 50 MCG (2000 UT) capsule TAKE 1 CAPSULE BY MOUTH EVERY MORNING 90 capsule 3 10/04/20 24 Active warfarin (Coumadin) 1 MG tablet TAKE DIRECTED BY COUMADIN CLINIC 60 tablet 2 11/27/19 25 Active gabapentin (Neurontin) 300 MG capsuleIndicatio ns:Back pain with left-sided radiculopathy TAKE 1 CAPSULE BY MOUTH AT BEDTIME NEEDED FOR PAIN 30 capsule 1 11/27/19 25 Active phenytoin ER (Dilantin) 100 MG capsule TAKE 3 CAPSULES BY MOUTH EVERY DAY IN THE MORNING 270 capsule 1 12/03/19 25 Active omeprazole (PriLOSEC) [address] capsuleIndicatio ns:Intercostal pain TAKE 1 CAPSULE BY MOUTH TWICE DAILY IN THE MORNING AND AT BEDTIME 180 capsule 1 01/01/20 25 Active thiamine (Vitamin B-1) 100 MG tablet TAKE 1 TABLET EVERY MORNING 90 tablet 1 01/01/20 25 Active folic acid (Folvite) 1 MG tablet TAKE 1 TABLET EVERY MORNING 90 tablet 1 01/01/20 25 Active loratadine (Claritin) 10 MG tablet TAKE 1 TABLET EVERY MORNING FOR ALLERGIES 90 tablet 1 01/01/20 25 Active omeprazole (PriLOSEC) [address] Amos ns:Intercostal pain TAKE 1 CAPSULE BY MOUTH TWICE DAILY IN THE MORNING AND AT BEDTIME 60 capsule 11 01/06/20 24 2024 Discontinued folic acid (Folvite) 1 MG tablet TAKE 1 TABLET BY MOUTH EVERY MORNING 90 tablet 1 07/11/20 24 2024 Discontinued thiamine (Vitamin B-1) 100 MG tablet TAKE 1 TABLET BY MOUTH EVERY MORNING 90 tablet 1 07/11/20 24 2024 Discontinued loratadine (Claritin) 10 MG tablet TAKE 1 TABLET BY MOUTH EVERY MORNING FOR ALLERGIES 90 tablet 1 07/11/20 24 2024 Discontinued Active Problems Problem Noted Date Diagnosed Date Chronic pain of left knee 03/16/2024 Assessment & Plan (06/21/2024 11:09 AM EDT): 12/12/23 knee X-ray showed Moderate joint effusion. Mild narrowing of the lateral compartment Assessment & Plan (03/16/2024 12:22 PM EDT): 12/12/23 knee X-ray showed Moderate joint effusion. Mild narrowing of the lateral compartment Chronic back pain 03/13/2024 Assessment & Plan (03/13/2024 12:38 PM EDT): - patient has tried PT - continue judicious use of APAP - patient has a cane and states he has a difficulty walking. He is going to apply for disability placard. We discussed about the qualified diagnosis and symptoms, and he was informed that it may not be approved Renal cyst 12/12/2023 Assessment & Plan (12/12/2023 3:50 PM EST): - followed by [facility] [place] urology - most recent renal US in Jun 2023 - continue surveillance Non-rheumatic aortic stenosis 06/03/2023 Assessment & Plan (12/12/2023 3:47 PM EST): - most recent transthoracic echocardiogram on 09/05/23 showing mild-moderate aortic stenosis and trivial aortic regurgitation - continue following management recommendations by tire maker Benign prostatic hyperplasia 03/28/2023 Overview (03/28/2023): -previously following with Urologist, last seen in 2017&2018 -will check PSA -will refer him back to Urologist for further evaluation Assessment & Plan (06/21/2024 11:09 AM EDT): - followed by [facility] [place] urology, last seen in Nov 2023 - PSA has been normal level - continue tamsulosin Assessment & Plan (12/12/2023 3:49 PM EST): - followed by [facility] [place] urology, last seen in Nov 2023 - PSA has been normal level - continue tamsulosin Assessment & Plan (07/15/2023 6:41 AM EDT): - previously followed by urologist, last seen in 2017 - recently seen again by [facility] [place] [place] urology in May 2023 - CT in 2019 showed prostate 4.5 x 5 cm size - PSA has been normal level - previously prescribed tamsulosin, but self-discontinued because pt was no longer seeing urologist - restarted tamsulosin by urologist in May 2023 Assessment & Plan (03/28/2023 1:30 PM EDT): - previously followed by urologist, last seen in 2017 - CT in 2019 showed prostate 4.5 x 5 cm size - PSA has been normal level - previously prescribed tamsulosin, but self-discontinued because pt was no longer seeing urologist - check PSA and refer him back for further evaluation History of latent tuberculosis 11/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 -Due to Coumadin use, Rifampin was contraindicated. Pt was started on Isoniazid, but the treatment had to be interrupted multiple times because of elevated LFT. Pt was drinking alcohol excessively during the treatment. -[facility], and pt had a direct observation therapy. -He finally completed 12 weeks of 900mg INH/900mg Rifapentine/ B6 50mg on 02/14/2019 Assessment & Plan (11/19/2022 6:00 PM EST): -12/03/16 T-spot TB positive -Treated by [facility]. -Due to Coumadin use, Rifampin was contraindicated. Pt was started on Isoniazid, but the treatment had to be interrupted multiple times because of elevated LFT. Pt was drinking alcohol excessively during the treatment. -His case was presented to [facility], and pt had a direct observation therapy. -He finally completed 12 weeks of 900mg INH/900mg Rifapentine/ B6 50mg on 02/14/2019 History of syphilis 11/19/2022 History of shingles 11/19/2022 Major depression 11/09/2022 History of alcohol use disorder 11/09/2022 Assessment & Plan (11/19/2022 5:42 PM EST): - graduated from AUD clinic - continue naltrexone - pt is aware of recovery support resources at [facility] Alcohol use disorder, moderate, in early remissi on 11/09/2022 Assessment & Plan (12/12/2023 3:53 PM EST): - previously followed by [facility]UD [facility] - reconnected with AUD clinic and now followed by Dr. Julien - long-term maintenance stage, with occasional alcohol intake - continue naltrexone Assessment & Plan (2023 10:40 AM EDT): - previously followed by Dr. [facility]UD clinic - long-term maintenance stage, with occasional alcohol intake - continue naltrexone Assessment & Plan (03/24/2023 12:38 PM EDT): - previously followed by Dr. [facility] AUD clinic - long-term maintenance stage, with occasional alcohol intake - continue naltrexone Assessment & Plan (11/19/2022 5:39 PM EST): - previously followed by Dr. [facility] AUD clinic - long-term maintenance stage, with occasional alcohol intake - continue naltrexone Erythrocytosis 11/09/2022 Assessment & Plan (06/21/2024 11:09 AM EDT): - followed by pharmacist technician, last seen in Jul 2023 - normal erythropoietin level - all other work-up has been normal Assessment & Plan (12/12/2023 3:53 PM EST): - followed by pharmacist technician, last seen in Jul 2023 - normal erythropoietin level - all other work-up has been normal Assessment & Plan (07/15/2023 6:41 AM EDT): - evaluated by pharmacist technician, last seen in January 2023 - normal erythropoietin level - all other work-up has been normal - US was ordered by pharmacist technician; advised to complete evaluation Assessment & Plan (11/19/2022 5:28 PM EST): - evaluated by pharmacist technician, last seen on 07/13/22 - normal erythropoietin level - all other work-up has been normal - most recent hematocrit 45 on 09/16/22 - US was ordered by pharmacist technician; advised to complete evaluation intermission coordinator (current) use of anticoagulants 2021 Assessment & Plan (2023 10:50 AM EDT): - indication: recurrent / chronic DVT, question of hypercoagulable disorder (elevated homocysteine) -managed by [facility] -Most recent INR-->3.4 on 03/18/23 -Current medication and dose: Warfarin 28 mg weekly -Because of phenytoin use, direct oral anticoagulants are contraindicated. -Discussed about the risk and benefit of warfarin and the importance of judicious and responsible use -Pt no longer drinks alcohol excessively -Follow up per protocol Assessment & Plan (03/28/2023 1:10 PM EDT): - indication: recurrent / chronic DVT, question of hypercoagulable disorder (elevated homocysteine) -managed by [facility] -Most recent INR-->3.4 on 03/18/23 -Current medication and dose: Warfarin 28 mg weekly -Because of phenytoin use, direct oral anticoagulants are contraindicated. -Discussed about the risk and benefit of warfarin and the importance of judicious and responsible use -Pt no longer drinks alcohol excessively -Follow up per protocol Assessment & Plan (11/19/2022 5:35 PM EST): -refer to chronic DVT -Most recent INR-->3.0 on 11/09/22 -Pt has been taking warfarin for many years -Because of phenytoin use, direct oral anticoagulants are contraindicated. Mitral and aortic valve disease 11/30/2018 Assessment & Plan (06/21/2024 11:09 AM EDT): -Most recent TTE on 09/05/23 Normal EF, mild-mod aortic stenosis and trivial aortic regurgitation with possible bicuspid aortic valve. Ascending aorta at 42 mm -Continue working on risk factor management -Emphasized the importance of keeping appt with tire maker; pt verbalized understanding Assessment & Plan (12/12/2023 3:07 PM EST): -Most recent TTE on 09/05/23 Normal EF, mild-mod aortic stenosis and trivial aortic regurgitation with possible bicuspid aortic valve. Ascending aorta at 42 mm -Continue working on risk factor management -Emphasized the importance of keeping appt with tire maker; pt verbalized understanding Assessment & Plan (07/15/2023 6:32 AM EDT): - Echo on 03/31/22 EF 60-65% showed severely calcified aortic valve, stenosis and mild regurgitation (in HFCCA). - Emphasized the importance of keeping appt with tire maker; pt verbalized understanding Assessment & Plan (11/09/2022 11:55 AM EST): - ECHO on 03/31/22 EF 60-65% showed severely calcified aortic valve, stenosis and mild regurgitation. 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 Alcohol use 11/16/2018 Stage 3 chronic kidney disease 05/03/2016 Assessment & Plan (06/21/2024 11:09 AM EDT): -Referred back to still operator gin after last visit in Jul 2023 -Patient had an appointment in [facility], which was rescheduled for 01/09/24 -09/10/16 Renal US wnl, no renal artery stenosis. -Hx elevated K with ACEI -Avoid NSAIDs / nephrotoxic drugs. -Use renal dosing. -Emphasized the importance of keeping appt Assessment & Plan (12/12/2023 3:52 PM EST): -Referred back to still operator gin after last visit in Jul 2023 -Patient had an appointment in [facility], which was rescheduled for 01/09/24 -09/10/16 Renal US wnl, no renal artery stenosis. -Hx elevated K with ACEI -Avoid NSAIDs / nephrotoxic drugs. -Use renal dosing. -Emphasized the importance of keeping appt Assessment & Plan (07/15/2023 6:39 AM EDT): -Followed by still operator gin, last seen ? -Mildly elevated K. Monitor closely with ACEI. -09/10/16 Renal US wnl, no renal artery stenosis. -Avoid NSAIDs / nephrotoxic drugs. -Use renal dosing. -Emphasized the importance of keeping appt Assessment & Plan (03/24/2023 12:38 PM EDT): -Followed by still operator gin, last seen -Currently on lisinopril 5 mg daily. -Mildly elevated K. Monitor closely with ACEI. -Most recent INR-->3.0 on 11/09/22 -09/10/16 Renal US wnl, no renal artery stenosis. -Avoid NSAIDs / nephrotoxic drugs. -Use renal dosing. Assessment & Plan (11/19/2022 6:02 PM EST): -Followed by still operator gin, last seen -Currently on lisinopril 5 mg daily. -Mildly elevated K. Monitor closely with ACEI. -Most recent INR-->3.0 on 11/09/22 -09/10/16 Renal US wnl, no renal artery stenosis. -Avoid NSAIDs / nephrotoxic drugs. -Use renal dosing. Hypertension 09/02/2015 Assessment & Plan (06/21/2024 11:09 AM EDT): -Goal BP < 140/90 per JNC-8, < 130/80 per ACC/AHA guideline -BP not at goal , ?adherence to medication -Comanaged with tire maker, pharmD, and still operator gin -Continue working on life style modifications. -Continue amlodipine 10 mg daily -Continue hydralazine 50 mg tid --Treatment history: -Lisinopril was decreased to 2.5 mg daily after AAYUSH with hyperkalemia secondary to renal hypoperfusion in a setting of CKD in summer 2016. Completely discontinued by still operator gin -Most recent echo: 09/05/23 EF 60-65%. Mild . Thoracic aortic aneurysm 4.2 cm - Follow up in 3 mo or sooner if any problem arises Assessment & Plan (03/13/2024 10:47 AM EDT): -Goal BP < 140/90 per JNC-8, < 130/80 per ACC/AHA guideline -BP not at goal , ?adherence to medication -Comanaged with tire maker, pharmD, and still operator gin -Continue working on life style modifications. -Continue amlodipine 10 mg daily -Continue hydralazine 50 mg tid --Treatment history: -Lisinopril was decreased to 2.5 mg daily after AAYUSH with hyperkalemia secondary to renal hypoperfusion in a setting of CKD in summer 2016. Completely discontinued by still operator gin -Most recent echo: 09/05/23 EF 60-65%. Mild . Thoracic aortic aneurysm 4.2 cm - Follow up in 3 mo or sooner if any problem arises Assessment & Plan (12/12/2023 3:05 PM EST): -Goal BP < 140/90 per JNC-8, < 130/80 per ACC/AHA guideline -BP not at goal , ?adherence to medication -Comanaged with tire maker, pharmD, and still operator gin -Continue working on life style modifications. -Continue amlodipine 10 mg daily -Continue hydralazine 50 mg tid --Treatment history: -Lisinopril was decreased to 2.5 mg daily after AAYUSH with hyperkalemia secondary to renal hypoperfusion in a setting of CKD in summer 2016. Completely discontinued by still operator gin -Most recent echo: 09/05/23 EF 60-65%. Mild . Thoracic aortic aneurysm 4.2 cm - Follow up in 3 mo or sooner if any problem arises Assessment & Plan (07/15/2023 6:34 AM EDT): -Goal BP < 140/90 per JNC-8, < 130/80 per ACC/AHA guideline -BP not at goal , ?adherence to medication -Comanaged with tire maker, pharmD, and still operator gin -Continue working on life style modifications. -Continue amlodipine 10 mg daily -Continue hydralazine 25 mg tid --Treatment history: -Lisinopril was decreased to 2.5 mg daily after AAYUSH with hyperkalemia secondary to renal hypoperfusion in a setting of CKD in summer 2016. Completely discontinued by still operator gin -Most recent echo: 03/31/22 EF 60-65%. Mild . Thoracic aortic aneurysm 4.2 cm - Follow up in 3 mo or sooner if any problem arises Assessment & Plan (03/24/2023 12:16 PM EDT): -Goal BP < 140/90 per JNC-8, < 130/80 per ACC/AHA guideline -BP suboptimal today -Continue working on life style modifications. -Continue lisinopril 10 mg daily. -Continue amlodipine 5mg every morning and 10mg every evening. We need to confirm this dosing with tire maker. --Treatment history: -Lisinopril was decreased to 2.5 mg daily after AAYUSH with hyperkalemia secondary to renal hypoperfusion in a setting of CKD in summer 2016. -Most recent echo: 03/31/22 EF 60-65%. Mild . Thoracic aortic aneurysm 4.2 cm -Monitor K+ closely with Lisinopril -f/u in 2 months Assessment & Plan (11/19/2022 5:16 PM EST): -Goal BP < 140/90 per JNC-8, < 130/80 per ACC/AHA guideline -BP suboptimal today -Continue working on life style modifications. -Continue lisinopril 10 mg daily. -Continue amlodipine 5mg every morning and 10mg every evening. We need to confirm this dosing with tire maker. --Treatment history: -Lisinopril was decreased to 2.5 mg daily after AAYUSH with hyperkalemia secondary to renal hypoperfusion in a setting of CKD in summer 2016. -Most recent echo: 03/31/22 EF 60-65%. Mild . Thoracic aortic aneurysm 4.2 cm -Monitor K+ closely with Lisinopril -f/u in 2 months Ascending aortic aneurysm 12/19/2014 Assessment & Plan (06/21/2024 11:08 AM EDT): -Most recent echo on 09/05/23 ascending aorta 42 mm, stable -Echo on 03/31/22 thoracic aorta 4.2 cm -Echo in Jun 2021 thoracic aorta 4.2 cm -Echo on 02/27/19 thoracic aorta 4.1 cm -Echo on 03/01/18 Thoracic aorta 4.0 cm -Continue working on risk factor management Assessment & Plan (03/13/2024 10:46 AM EDT): -Most recent echo on 09/05/23 ascending aorta 42 mm, stable -Echo on 03/31/22 thoracic aorta 4.2 cm -Echo in Jun 2021 thoracic aorta 4.2 cm -Echo on 02/27/19 thoracic aorta 4.1 cm -Echo on 03/01/18 Thoracic aorta 4.0 cm -Continue working on risk factor management Assessment & Plan (12/12/2023 3:04 PM EST): -Most recent echo on 09/05/23 ascending aorta 42 mm, stable -Echo on 03/31/22 thoracic aorta 4.2 cm -Echo in Jun 2021 thoracic aorta 4.2 cm -Echo on 02/27/19 thoracic aorta 4.1 cm -Echo on 03/01/18 Thoracic aorta 4.0 cm -Continue working on risk factor management Assessment & Plan (07/15/2023 6:39 AM EDT): -Echo on 03/31/22 thoracic aorta 4.2 cm -Echo in Jun 2021 thoracic aorta 4.2 cm -Echo on 02/27/19 thoracic aorta 4.1 cm -Echo on 03/01/18 Thoracic aorta 4.0 cm -Continue working on risk factor management Assessment & Plan (03/24/2023 12:37 PM EDT): -Echo on 03/31/22 EF 60-65% 4.2cm -Echo on 03/01/18 Thoracic aorta 4.0 cm -Echo on 02/27/19 Thoracic aorta 4.1 cm -Echo on 02/29/20 No mention of aneurysm -ECHO on 06/2021 Thoracic aorta 4.2 cm -Continue working on risk factor management Assessment & Plan (11/19/2022 5:00 PM EST): -Echo on 03/31/22 EF 60-65% 4.2cm -Echo on 03/01/18 Thoracic aorta 4.0 cm -Echo on 02/27/19 Thoracic aorta 4.1 cm -Echo on 02/29/20 No mention of aneurysm -ECHO on 06/2021 Thoracic aorta 4.2 cm -Continue working on risk factor management Dyslipidemia 08/05/2014 Assessment & Plan (06/21/2024 11:11 AM EDT): Last Lipid Profile : 03/24/23 TC 201 ; TG 139 ; HDL 57 ; LDL 119 - Atorvastatin 10 mg QHS - Continue working on lifestyle modifications - Will update lipid profile with next lab order Assessment & Plan (12/30/2023 3:54 PM EDT): Last Lipid Profile : 03/24/23 TC 201 ; TG 139 ; HDL 57 ; LDL 119 - Atorvastatin 10 mg QHS - Continue working on lifestyle modifications - Will update lipid profile with next lab order Assessment & Plan (2023 1:04 PM EDT): Last Lipid Profile : 03/24/23 TC 201 ; TG 139 ; HDL 57 ; LDL 119 - Atorvastatin 10 mg QHS - Continue working on lifestyle modifications - Will update lipid profile with next lab order Hemorrhoids 08/05/2014 Assessment & Plan (2023 10:48 AM EDT): - following with Dr. Brunson - avoid prolonged sitting and constipation - encouraged sitz bath Assessment & Plan (11/19/2022 5:04 PM EST): - following with Dr. Brunson - avoid prolonged sitting and constipation - sitblessing bath Gastroesophageal reflux disease 11/24/2012 Hyperhomocysteinemia 11/24/2012 Assessment & Plan (2023 10:48 AM EDT): Hx of elevated homocysteine. Evaluated by pharmacist technician for hypercoagulable disorder. Evaluation is incomplete because he was on Coumadin. He was recommended indefinite warfarin treatment. Assessment & Plan (03/28/2023 1:04 PM EDT): Hx of elevated homocysteine. Evaluated by pharmacist technician for hypercoagulable disorder. Evaluation is incomplete because he was on Coumadin. He was recommended indefinite warfarin treatment. Depressive disorder 11/24/2012 Assessment & Plan (12/12/2023 3:53 PM EST): - S provider : Francisco Javier Forrest - Hx suicidal ideation - Lost his in 2014 due to pancreatic cancer, and his psychosocial health worsened - Continue buspirone and mirtazapine as prescribed by psychiatarist Assessment & Plan (2023 10:43 AM EDT): - S provider : Francisco Javier Forrest - Hx suicidal ideation - Lost his in 2014 due to pancreatic cancer, and his psychosocial health worsened - Continue buspirone and mirtazapine as prescribed by psychiatarist Assessment & Plan (03/24/2023 12:38 PM EDT): - S provider : Francisco Javier Forrest - Hx suicidal ideation - Lost his in 2014 due to pancreatic cancer, and his psychosocial health worsened - Continue buspirone and mirtazapine as prescribed by psychiatarist Assessment & Plan (11/19/2022 6:15 PM EST): - S provider : Francisco Javier Forrest - Hx suicidal ideation - Lost his in 2014 due to pancreatic cancer, and his psychosocial health worsened - Continue buspirone and mirtazapine as prescribed by psychiatarist Vitamin D deficiency 11/24/2012 Deep venous thrombosis of lower extremity 2011 Assessment & Plan (06/21/2024 11:08 AM EDT): -Recurrent and chronic DVT, mostly left side -Chronic left common femoral vein -Continue warfarin -INR monitoring and warfarin dose adjustment are managed by [facility] Green team nurses -Most recent INR 2.3 on 06/18/23 -Continue following with [facility] Green team nurse for anticoagulation management Assessment & Plan (03/13/2024 10:46 AM EDT): -Recurrent and chronic DVT, mostly left side -Chronic left common femoral vein -Continue warfarin -INR monitoring and warfarin dose adjustment are managed by [facility] Green team nurses -Most recent INR 2.3 on 06/18/23 -Continue following with [facility] Green team nurse for anticoagulation management Assessment & Plan (12/12/2023 3:04 PM EST): -Recurrent and chronic DVT, mostly left side -Chronic left common femoral vein -Continue warfarin -INR monitoring and warfarin dose adjustment are managed by [facility] Green team nurses -Most recent INR 2.3 on 06/18/23 -Continue following with [facility] Green team nurse for anticoagulation management Assessment & Plan (07/15/2023 6:37 AM EDT): -Recurrent and chronic DVT, mostly left side -Chronic left common femoral vein -Continue warfarin -INR monitoring and warfarin dose adjustment are managed by [facility] Green team nurses -Most recent INR 2.3 on 06/18/23 -Continue following with [facility] Green team nurse for anticoagulation management Assessment & Plan (03/24/2023 12:37 PM EDT): -Recurrent and chronic DVT, mostly left side -Chronic left common femoral vein -Continue warfarin -INR monitoring and warfarin dose adjustment are managed by [facility] Green team nurses -Most recent INR-->3.0 on 11/09/22 -Continue following with [facility] Green team nurse for anticoagulation management Assessment & Plan (11/19/2022 6:00 PM EST): -Recurrent and chronic DVT, mostly left side -Chronic left common femoral vein -Continue warfarin -INR monitoring and warfarin dose adjustment are managed by [facility] team nurses -Most recent INR-->3.0 on 11/09/22 -Continue following with [facility] team nurse for anticoagulation management Seizure disorder 03/23/2012 Assessment & Plan (06/21/2024 11:08 AM EDT): - Hx seizure many years ago, possibly related to alcohol use at that time - Previously seeing a neurologist, lost in follow-up, multiple attempts to reconnect was unsuccessful - Seizure-free for many years - Continue phenytoin for now; consider discontinuing in the future since it has many interactions with other medications which limit his medical management for other conditions Assessment & Plan (12/12/2023 3:03 PM EST): - Hx seizure many years ago, possibly related to alcohol use at that time - Previously seeing a neurologist, lost in follow-up, multiple attempts to reconnect was unsuccessful - Seizure-free for many years - Continue phenytoin for now; consider discontinuing in the future since it has many interactions with other medications which limit his medical management for other conditions Assessment & Plan (07/15/2023 6:28 AM EDT): - Hx seizure many years ago, possibly related to alcohol use at that time - Previously seeing a neurologist, lost in follow-up, multiple attempts to reconnect was unsuccessful - Seizure-free for many years - Continue phenytoin for now; consider discontinuing in the future since it has many interactions with other medications which limit his medical management for other conditions Assessment & Plan (11/19/2022 5:03 PM EST): - Hx seizure many years ago, possibly related to alcohol use at that time - Previously seeing a neurologist, lost in follow-up, multiple attempts to reconnect was unsuccessful - Seizure-free for many years - Continue phenytoin for now; consider discontinuing in the future Peripheral vascular disease 03/13/2012 Assessment & Plan (12/12/2023 3:48 PM EST): - 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 - consider referring back to vascular specialist Encounters Date Type Department Care Team Description 01/04/2025 11:00 AM EDT Clinical Support [facility] [place] [address] Earline Quinn, RENNY intermission coordinator (current) use of anticoagulants 01/04/2025 Travel 12/30/2024 Refill [facility] [address] [place] [address] Veronica Gallardo MD Intercostal pain 12/21/2024 10:30 AM EDT Clinical Support [facility] ROSIE Fierro [phone] Earline Quinn RN intermission coordinator (current) use of anticoagulants 12/21/2024 Travel 12/17/2024 10:00 AM EDT Office Visit [facility] [place] [place] [address] Johnny, Flora, OD Combined forms of age-related cataract of both eyes (Primary Dx); MGD (meibomian gland dysfunction); Nevus of conjunctiva, right; History of excision of pterygium 12/17/2024 Travel 12/11/2024 2:30 PM EST Office Visit [facility] [address] [phone] Johnny, Flora, OD Nevus of conjunctiva, right (Primary Dx); History of excision of pterygium; Presbyopia 12/11/2024 Travel 12/07/2024 1:00 PM EST Clinical Support [facility] [place] [address] Earline Qiunn, RENNY jail (current) use of anticoagulants 12/07/2024 Travel 12/02/2024 Refill [facility] [place] [address] Veronica Gallardo MD 11/30/2024 11:30 AM EST Clinical Support [facility] ROSIE Fierro [phone] Earline Quinn RN jail (current) use of anticoagulants 11/30/2024 Travel 11/25/2024 Refill [facility] [address] [place] [address] Veronica Gallardo MD Back pain with left-sided radiculopathy 11/25/2024 Refill [facility] [address] [place] [address] Chayito Guan MD 11/12/2024 11:30 AM EST Clinical Support [facility] [address] [place] [address] Earline Quinn, RENNY intermission coordinator (current) use of anticoagulants 11/12/2024 Anticoagulation - Warfarin Visit [facility] [address] [place] [address] Earline Quinn RN jail (current) use of anticoagulants 11/12/2024 Travel 10/26/2024 10:30 AM EST Clinical Support [facility] [address] [place] [address] Earline Quinn RN intermission coordinator (current) use of anticoagulants 10/26/2024 Travel from Last 3 Months Immunizations Name Administration Dates Next Due Hep A, Adult 10/15/2024,03/13/2024 INFLUENZA INJECTABLE QUADRIV ALANT CCIIV4 MDCK Multi-dose vial 10/01/2019 Influenza High-dose Quadriva lent Preservative Free 06/29/2023,09/01/2020 Influenza injectable quadriv alent IIV4 with preservative 06/30/2017,09/02/2015 Influenza injectable quadriv alent preservative free 07/28/2021,09/22/2016 Influenza, High Dose Seasona l, Preservative Free 06/21/2024,08/21/2018 Influenza, IIV3, injectable 07/22/2011, 0 Influenza, Split (incl. jaylin fied surface antigen) 09/04/2013,06/06/2012 Influenza, seasonal, injecta ble, preservative free 08/06/2014 Pfizer Covid-19 Vaccine 12+ 10/15/2024, 4 Pneumococcal Conjugate PCV 13 12/17/2019 Pneumococcal Polysaccharide PPSV23 05/31/2022,,03/20/2009 RSV Bivalent 09/14/2023 TD (adult), 2 Lf tetanus tox oid, preservative free, adsorbed 05/25/2010,03/13/2003,10/10/1984 Td (adult), 5 Lf tetanus tox oid, preservative free, adsorbed 02/15/2017 Tdap 11/24/2012 Zoster, Recombinant 12/03/2019,10/01/2019 Zoster, live 12/24/2016 Social History Tobacco Use Types Packs/Day Years [...] Orientation Straight 08/09/2022 10 :14 AM EDT Last Filed Vital Signs Vital Sign Reading Time Taken Comments Blood Pressure 123/83 10/12/2024 10:38 AM EST [employer] [facility] Monitor Pulse 62 10/12/2024 10:38 AM EST Temperature 36.2 ??C (97.1 ??F) 06/21/2024 1 1:03 AM EDT Respiratory Rate 14 06/21/2024 11:0 3 AM EDT Oxygen Saturation 98% 03/13/2024 10: 26 AM EDT Inhaled Oxygen Concentration - - Weight 76 kg (167 lb 9.6 oz) 03/13/2024 10:26 AM EDT Height 176.5 cm (5' 9.48 ) 12/12/2023 9 :54 AM EST Body Mass Index 24.41 12/12/2023 9:54 AM EST Plan of Treatment Upcoming Encounters Date Type Department Care Team (Late st Contact Info) Description 04/11/2025 11:00 AM EDT Medication Management [facility] [address] [place] [address] Brien Vargas, PharmD [address] [place] [address] Health Maintenance Due Date Last Done Comments CT Colonography 1955 Colonoscopy 1955 Colorectal Cancer Screening 1955 FIT DNA/Cologuard 1955 FIT 1955 FOBT 1955 Sigmoidoscopy 1955 Alcohol/Substance Use Screening 1965 Depression Screening 03/24/2024 03/24/2023, 03/24/20 23 SDOH Screening 03/13/2025 03/13/2024 Tobacco Screening 01/02/2026 01/02/2025 DTaP/Tdap/Td Vaccines (3 - Td or Tdap) 02/15/2027 02/15/2017, 11/24/2012, 05/25/2010, Additional history exists Lipid Panel 06/21/2029 06/21/2024, 03/10, 11/06/2021, Additional history exists Zoster Vaccines Completed 12/03/2019, 09/10, 12/24/2016 Pneumococcal Vaccine: 50+ Years Completed 05/31/2022, 12/17/2019, 08/06/2014, Additional history exists RSV Patients and Patients Aged 60 years or older Completed 09/14/2023 Hepatitis C Screening Completed 06/21/2024 , 03/24/2023, 11/06/2021, Additional history exists Influenza Vaccine Completed 06/21/2024, , 07/28/2021, Additional history exists COVID-19 Vaccine Completed 10/15/2024, 01/2024, 09/25/2021, Additional history exists Hepatitis A Vaccines Aged Out 10/15/2024, 03/13/20 24 No longer eligible based on patient's age to complete this topic HIB Vaccines Aged Out No longer eligi ble based on patient's age to complete this topic HPV Vaccines Aged Out No longer eligi ble based on patient's age to complete this topic Hepatitis B Vaccines Aged Out No long er eligible based on patient's age to complete this topic IPV Vaccines Aged Out No longer eligi ble based on patient's age to complete this topic Meningococcal Vaccine Aged Out No collin bennie eligible based on patient's age to complete this topic RSV under 20 months Aged Out No longe r eligible based on patient's age to complete this topic Rotavirus Vaccines Aged Out No longer eligible based on patient's age to complete this topic Goals Goal Patient Goal Type Associated Problems Recent Progress Patient-Stated? Author Blood Pressure < 140/90 Blood Pressure 123/83( 025 10:38 AM EST) Brien Pollard, Efrain Procedures Procedure Name Priority Date/Time Associated Diagnosis Comments POCT INR Routine 01/04/2025 jail (current) use of anticoagulants POCT INR Routine 12/21/2024 intermission coordinator (current) use of anticoagulants POCT INR Routine 12/07/2024 jail (current) use of anticoagulants POCT INR Routine 11/30/2024 jail (current) use of anticoagulants POCT INR Routine 11/12/2024 intermission coordinator (current) use of anticoagulants POCT INR Routine 10/26/2024 jail (current) use of anticoagulants HEPATITIS C AB W/REFL TO HCV RNA, QN, PCR Routine 06/21/2024 1:20 PM EDT History of syphilis LIPID PANEL WITH REFLEX TO DIRECT LDL Routine 06/21/2024 1:20 PM EDT Dyslipidemia from Last 3 Months or Most Recently Relevant to Health Maintenance Results * POCT INR manually resulted (01/04/2025) Only the most recent of6 resultswithin the time period is included. Protime INR 2.9 2 - 3 Blood Capillary blood specimen / Unknown 01/04/2025 Veronica Gallardo MD POINT OF CARE TEST ENTER/EDIT OR DERABLES Final Result * Lipid Panel with Reflex to Direct LDL (06/21/2024 1:20 PM EDT) Triglycerides 138 <150 mg/dL [facility] Comment:Desirable Triglyceri de: less than 150 mg/dLBorderline High Triglyceride 150-199 mg/dLHigh Triglyceride: 200-499 mg/dLVery High Triglyceride: greater than or equal to 5OO mg/dL Cholesterol 154 <200 mg/dL [facility] Comment:Desirable Cholestero l: less than 200 mg/dLBorderline High Cholesterol: 200-239 mg/dLHigh Cholesterol: greater than 239 mg/dL LDL Cholesterol Calculated 82 <100 mg/dL [facility] Comment:Desirable LDL: less than 100 mg/dLNear Optimal/Above Optimal LDL: 110- 129 mg/dLBorderline High LDL: 130-159 mg/dLHigh LDL: 160-189 mg/dLVery High LDL: greater than or equal to 190 mg/dL HDL Cholesterol 45 >40 mg/dL [facility] Comment:Desirable HDL: great er than 40 mg/dL Note: This HDL assay may give artificially low results in patients with liver disease. Blood 06/21/2024 1:20 PM EDT 06/21/2024 4:06 PM EDT Veronica Gallardo MD LAB BLOOD ORDERABLES Final Resul t [facility] [address] [place] [phone] * Hepatitis C Antibody with Reflex to HCV, RNA, Quantitative, Real-Time PCR (06/21/2024 1:20 PM EDT) Hepatitis C Antibody Nonreactive Nonreactive [facility] Comment:Antibodies to HCV no t detected; does not exclude early acuteHCV infection. Blood Venous blood specimen / Unknown 06/21/2024 1:20 PM EDT 06/21/2024 4:06 PM EDT Veronica Gallardo MD LAB BLOOD ORDERABLES Final Resul t [facility] [address] [place] [address] [phone] from Last 3 Months or Most Recently Relevant to Health Maintenance Insurance [facility] Care Teams Rn Pediatric Relationship Specialty Start Date End Date Veronica Gallardo MD [address] [place] [address] PCP - General Family Medicine 08/09/12 Brien Vargas, PallaviD [address] [place] [address] [place] [address] Pharmacist Internal Medicine 11/30/22
--- OUTSIDE RECORDS SUMMARY | 2025-01-14 11:50 | XMS_ITS | Encounter Summary ---
Author Organization [employer] [facility] Address [address] [facility] [address] [facility] [address] [address] [place] [address] Care Team Providers Care Office Support Clerk Name Role Phone Veronica Gallardo MD Primary Care Provider [phone] Brien Vargas PharmD Unavailable [phone] Reason for Visit * Reason Comments Med Refill Encounter Details Date Type Department Care Team (Late Contact Info) Description 01/14/2023 Refill [facility] [address] [place] [address] [phone] Estefania Gilbert MD [address] [place] [address] [phone] Social History Tobacco Use Types Packs/Day Years Used Date Smoking Tobacco: Never Smokeless Tobacco: Never Sex and Gender Information Value Date Recorded Sex Assigned at Male 08/09/2022 10:14 AM EDT Legal Sex Male 10:14 AM EDT Gender Identity Male 08/09/2022 10:14 AM EDT Sexual Orientation Straight 08/09/2022 10 :14 AM EDT COVID-19 Exposure Response Date Recorded In the last 10 days, have yo u been in contact with someone who was confirmed or suspected to have Coronavirus/COVID-19? No / Unsure 01/11/2023 9:19 AM EDT documented as of this encounter Plan of Treatment Upcoming Encounters Date Type Department Care Team (Late Contact Info) Description 04/11/2025 11:00 AM EDT Medication Management [facility] [address] [place] [address] [phone] Brien Vargas, PharmD [address] [place], [place] [phone] documented as of this encounter Goals Goal Patient Goal Type Associated Problems Recent Progress Patient-Stated? Author Blood Pressure < 140/90 Blood Pressure 123/83( 025 10:38 AM EST) No Brien Vragas, PharmD documented as of this encounter Visit Diagnoses Not on filedocumented in this encounter Care Teams Office Support Clerk Relationship Specialty Start Date End Date Veronica Gallardo MD [address] [place] [address] PCP - General Family Medicine 08/09/12 Brien Vargas, PharmD [address] [place] [phone] Pharmacist Internal Medicine 11/30/22 documented as of this encounter
--- OUTSIDE RECORDS SUMMARY | 2025-01-14 11:50 | XMS_ITS | Encounter Summary ---
Author Organization [employer] [facility] Address [address] [facility] [address] [place] [address] Care Team Providers Care Commercial Loan Specialist Name Role Phone Veronica Gallardo MD Primary Care Provider [phone] Brien Vargas PharmD Unavailable [phone] Encounter Details Date Type Department Care Team (Late Contact Info) Description 10/12/2022 Orders Only [facility] [address] [place], [place] [phone] Deya Barber LPN Social History Tobacco Use Types Packs/Day Years [...] suspected to have Coronavirus/COVID-19? No / Unsure 10/12/2022 9:44 AM EST documented as of this encounter Plan of Treatment Upcoming Encounters Date Type Department Care Team (Late Contact Info) Description 04/11/2025 11:00 AM EDT Medication Management [facility] MED[facility] [address] [place], [place] [phone] Brien Vargas, PharmD [address] [place], [place] [phone] documented as of this encounter Visit Diagnoses Not on filedocumented in this encounter Care Teams Commercial Loan Specialist Relationship Specialty Start Date End Date Veronica Gallardo MD [address] [place] [address] PCP - General Family Medicine 08/09/12 Brien Vargas, PallaviD [address] [place] [address] Pharmacist Internal Medicine 11/30/22 documented as of this encounter
--- OUTSIDE RECORDS SUMMARY | 2025-01-14 11:50 | XMS_ITS | Encounter Summary ---
Author Organization [employer] [facility] Address [address] [facility] 7t [place] [address] Care Team Providers Care Writer Editor Name Role Phone Veronica Gallardo MD Primary Care Provider [phone] Brien Vargas PharmD Unavailable [phone] Encounter Details Date Type Department Care Team (Late Contact Info) Description 06/27/2023 Telephone [facility] [address] [place] [address] [phone] Veronica Gallardo MD [address] [place] [phone] Social History Tobacco Use Types Packs/Day Years Used Date Smoking Tobacco: Never Smokeless Tobacco: Never Depression Answer Date Recorded Patient Health Questionnaire-9 Score 0 03/24/2023 Depression Answer Date Recorded Patient Health Questionnaire-2 [...] Description 04/11/2025 11:00 AM EDT Medication Management [facility] [address] [place] [address] [phone] Brien Vargas, PharmD [address] [place], [place] [phone] documented as of this encounter Goals Goal Patient Goal Type Associated Problems Recent Progress Patient-Stated? Author Blood Pressure < 140/90 Blood Pressure 123/83( 025 10:38 AM EST) No Brien Vargas, PharmDonte documented as of this encounter Visit Diagnoses Not on filedocumented in this encounter Additional Health Concerns Assessment Noted Time PHQ-9 Depression Total Score: 0 03/24/20 23 11:18 AM EDT documented as of this encounter Care Teams Writer Editor Relationship Specialty Start Date End Date Veronica Gallardo MD [address] [place] [address] PCP - General Family Medicine 08/09/12 Brien Vargas, PallaviD [address] [place] [address] Pharmacist Internal Medicine 11/30/22 documented as of this encounter
--- OUTSIDE RECORDS SUMMARY | 2025-01-14 11:50 | XMS_ITS | Encounter Summary ---
Author Organization [employer] [facility] Address [address] [facility] 7t [place] [address] Care Team Providers Care Illuminator Name Role Phone Veronica Gallardo MD Primary Care Provider [phone] Brien Vargas PharmD Unavailable [phone] Encounter Details Date Type Department Care Team (Late Contact Info) Description 09/09/2022 Orders Only [facility] MED[facility] [address] [place] [address] [phone] Veronica Gallardo MD [address] [place] [phone] Social History Tobacco Use Types Packs/Day Years Used Date Smoking Tobacco: Never Assessed Sex and Gender Information Value Date Recorded Sex Assigned at Male 08/09/2022 10:14 AM EDT Legal Sex Male 10:14 AM EDT Gender Identity Male 08/09/2022 10:14 AM EDT Sexual Orientation Straight 08/09/2022 10 :14 AM EDT documented as of this encounter Plan of Treatment Upcoming Encounters Date Type Department Care Team (Late Contact Info) Description 04/11/2025 11:00 AM EDT Medication Management [facility] [address] [place] [phone] Brien Vargas, PharmD [address] [place] [phone] documented as of this encounter Visit Diagnoses Not on filedocumented in this encounter Care Teams Illuminator Relationship Specialty Start Date End Date Veronica Gallardo MD [address] [place] [phone] PCP - General Family Medicine 08/09/12 Brien Vargas, PallaviD [address] [place] [address] Pharmacist Internal Medicine 11/30/22 documented as of this encounter
--- OUTSIDE RECORDS SUMMARY | 2025-01-14 11:50 | XMS_ITS | Encounter Summary ---
Author Organization [employer] Address [address] [facility] [address] [facility] [address] [place] [address] Care Team Providers Care Test Tube Maker Name Role Phone Veronica Gallardo MD Primary Care Provider [phone] Brien Vargas PharmD Unavailable [phone] Encounter Details Date Type Department Care Team (Late st Contact Info) Description 04/25/2024 Orders Only [facility] MED[facility]INE [address] [place], [place] [phone] Veronica Gallardo MD [address] [place], [place] [phone] Hypertension, unspecified type Social History Tobacco Use Types Packs/Day Years [...] Description 04/11/2025 11:00 AM EDT Medication Management [facility] MED[facility]INE [address] [place] [address] Brien Vargas PharmD [address] [place] [address] documented as of this encounter Goals Goal Patient Goal Type Associated Problems Recent Progress Patient-Stated? Author Blood Pressure < 140/90 Blood Pressure 123/83( 025 10:38 AM EST) No Brien Vargas, Efrain documented as of this encounter Procedures Procedure Name Priority Date/Time Associated Diagnosis Comments XR CHEST 1 VIEW Routine 05/03/2024 9:30 AM EDT documented in this encounter Results * XR Chest 1 View (05/03/2024 9:30 AM EDT) Anatomical Region Laterality Modality Chest Radiographic Svitlana ging 05/03/2024 9:30 AM EDT Narrative 05/03/2024 10:18 AM EDT ? [facility] ?[address] ?[place] [address] ?XRay Report ? Signed ? Patient: Dash Henriquez,Chriss ?MR#: ?? [id number] ? : 1955 ?Acct:[id number] ? Age/Sex: 68 / M ?ADM Date: 07/25/24 ? Loc: HO.ED ? Attending Dr: ? Ordering Physician: Flo Fleming MD ?? Date of Service: 05/03/24 ?? Procedure(s): XR chest 1V ?? Accession Number(s): [id number] ? cc: Flo Fleming MD; Veronica Gallardo MD ? EXAMINATION: ?? XR CHEST ? CLINICAL INFORMATION: ?? Chest pain ? COMPARISON: ?? 04/01/2023 and 10/19/2023 ? TECHNIQUE: ?? Frontal view of the chest was obtained. ? FINDINGS: ?? Lungs are mildly hypoinflated. There appears to be chronic thickening ?? of bronchial mitchell. No focal consolidation, pleural effusion or ?? pneumothorax. ? Cardiac silhouette is normal in size. There is atherosclerotic ?? calcification of the aortic arch. ? The visualized bones are intact. ? XR/XR chest 1V ?? IMPRESSION: ?? * ??No acute pulmonary disease. ?? * ??Chronic inflammatory thickening of airway mitchell is suspected. ? Dictated By: ?Ryley Guevara MD ? Signed By: ?<Electronically signed by Ryley Guevara MD in OV> ? 05/03/24 1015 ? DD/ 0930 ? TD/TT: ? Top Loader: PD ? Procedure Note Yojana, Maria Luisa - 05/03/[address] [address] XRay Report Signed Patient: Lenard Munoz#: [id number] : 1955cct:[id number] Age/Sex: 68 / MADM Date: 05/03/24 Loc: HO.ED Attending Dr: Ordering Physician: Flo Fleming MD Date of Service: 05/03/24 Procedure(s): XR chest 1V Accession Number(s): [id number] cc: Flo Fleming MD; Veronica Gallardo MD EXAMINATION: XR CHEST CLINICAL INFORMATION: Chest pain COMPARISON: 04/01/2023 and 10/19/2023 TECHNIQUE: Frontal view of the chest was obtained. FINDINGS: Lungs are mildly hypoinflated. There appears to be chronic thickening of bronchial mitchell. No focal consolidation, pleural effusion or pneumothorax. Cardiac silhouette is normal in size. There is atherosclerotic calcification of the aortic arch. The visualized bones are intact. XR/XR chest 1V IMPRESSION: * No acute pulmonary disease. * Chronic inflammatory thickening of airway mitchell is suspected. Dictated By: Ryley Guevara MD Signed By: <Electronically signed by Ryley Guevara MD in OV> 05/03/24 1015 DD/ 0930 TD/TT: Top Loader: [facility] External Provider IMG XR PROCEDURES Final Result documented in this encounter Visit Diagnoses Diagnosis Hypertension, unspecified type documented in this encounter Additional Health Concerns Assessment Noted Time PHQ-9 Depression Total Score: 0 03/24/20 23 11:18 AM EDT documented as of this encounter Care Teams Test Tube Maker Relationship Specialty Start Date End Date Veronica Gallardo MD [address] [place] [address] PCP - General Family Medicine 08/09/12 Brien Vargas, PallaviD [address] [place] [phone] Pharmacist Internal Medicine 11/30/22 documented as of this encounter
--- OUTSIDE RECORDS SUMMARY | 2025-01-14 11:50 | XMS_ITS | Encounter Summary ---
Author Organization [facility] Address [address] 7[address] [place] [address] Care Team Providers Care Engine Room Operator Name Role Phone Veronica Gallardo MD Primary Care Provider [phone] Brien Vargas PharmD Unavailable [phone] Reason for Visit * Reason Comments Med Refill Encounter Details Date Type Department Care Team (Late st Contact Info) Description 10/12/2023 Refill [facility] [address] [place], [place] [phone] Veronica Gallardo MD [address] [place], [place] [phone] Back pain with left-sided radiculopathy Social History Tobacco Use Types Packs/Day Years [...] 04/11/2025 11:00 AM EDT Medication Management [facility] [address] [place] [address] Brien Vargas, PharmD [address] [place] [address] documented as of this encounter Goals Goal Patient Goal Type Associated Problems Recent Progress Patient-Stated? Author Blood Pressure < 140/90 Blood Pressure 123/83( 025 10:38 AM EST) No Brien Vargas, PharmD documented as of this encounter Visit Diagnoses Diagnosis Back pain with left-sided radiculopathy documented in this encounter Additional Health Concerns Assessment Noted Time PHQ-9 Depression Total Score: 0 03/24/20 11:18 AM EDT documented as of this encounter Care Teams Engine Room Operator Relationship Specialty Start Date End Date Veronica Gallardo MD [address] [place] [phone] PCP - General Family Medicine 08/09/12 Brien Vargas, PharmD [address] [place] [address] [phone] Pharmacist Internal Medicine 11/30/22 documented as of this encounter
== END 2025-01-14 10:53 | disposition home or self-care (01) ==
LOC: HO.HUSH 10:10
PROVIDERS: PCP Family Medicine; Visit Provider Nurse Practitioner Family
DX: R35.0 Frequency of micturition (principal); N32.89 Other specified disorders of bladder; N28.1 Cyst of kidney, acquired; R33.9 Retention of urine, unspecified
CPT/HCPCS: 99213; G2211

== ENCOUNTER → 2025-01-14 10:10 | Outpatient (BNVA) | payer OTHER, SELFPAY | PROVIDERS: PCP Family Medicine; Visit Provider Nurse Practitioner Family | DX: R35.0 Frequency of micturition (principal); N32.89 Other specified disorders of bladder; N28.1 Cyst of kidney, acquired; R33.9 Retention of urine, unspecified; R39.12 Poor urinary stream; Z79.899 Other long term (current) drug therapy | CPT/HCPCS: 51798; 81003; 99212 ==

== ENCOUNTER 2025-02-11 12:56 | Outpatient (AMB) | payer OTHER, SELFPAY ==
[2025-02-11 13:07] VITALS: BP 110/80; PULSE 63; BMI 24.1
--- NOTE | 2025-02-11 13:07 | MHC.OFFVIS ---
Vital Signs 02/11/25 13:07 Height 5 ft 9 in Weight 163 lb 2.273 oz BMI 24.1 BP 110/80 Blood Pressure Location Lt brachial Position Sitting Pulse 63 Pulse Source Pulse Oximeter Intake Visit Reasons: 6 month f/u Weigh Box Tender Required: Yes Weigh Box Tender Language: Tank Insulator Rubber Name: voice [id number] Allergies ibuprofen [From Motrin] Allergy (Intermediate, Verified 02/11/25 13:10) Unknown acetaminophen [From Percocet] Allergy (Verified 02/11/25 13:10) Unknown oxycodone Allergy (Verified 02/11/25 13:10) Unknown Medication List - Last Reconciled 02/11/25 by FELA Maldonado acetaminophen (Tylenol) 650 mg PO Q8H PRN amlodipine 10 mg PO DAILY atorvastatin 10 mg PO BEDTIME buspirone 30 mg PO BID cholecalciferol (vitamin D3) (Vitamin D3) 50 mcg PO DAILY docusate sodium 100 mg PO BID finasteride 5 mg PO DAILY 90 days fluticasone propionate 50 mcg/actuation 1 spray intranasal DAILY folic acid 1 mg PO DAILY gabapentin 300 mg PO DAILY hydralazine 50 mg PO TID loratadine 10 mg PO DAILY mirtazapine 45 mg PO BEDTIME omeprazole 20 mg PO DAILY phenytoin sodium extended 100 mg PO TID terazosin 5 mg PO BEDTIME 90 days thiamine HCl (vitamin B1) 100 mg PO QAM warfarin 5 mg PO QWEEK warfarin 4 mg PO DAILY HPI HPI 6 month f/u: Details: Chriss is a 69-year-old male with past medical history hypertension, hyperlipidemia, DVT/on Coumadin, aortic stenosis, ascending aortic aneurysm who presents for follow-up. His last prior visit was 03/20/2024. Today he reports he has doing well overall since his last visit. He will notice quick sharp pains in his chest that happened randomly and last 1-2 seconds. He walks routinely for exercise and does not get chest discomfort brought on by walking. No concerning shortness of breath, PND, orthopnea or edema. He tells me he notices his heartbeat fast when he is eating. He is not noticing heart palpitations at other times. No lightheadedness, presyncope, syncope, falls. Compliant with medications. Certified documentation nurse used. [facility] Medical History Ascending aortic aneurysm Colon cancer screening Hemorrhoid Aortic aneurysm GERD (gastroesophageal reflux disease) Chronic anticoagulation Alcohol abuse Mood disorder Mood disorder due to a general medical condition Peripheral vascular disease DVT (deep venous thrombosis) Hyperhomocysteinemia CKD (chronic kidney disease) Depression Seizure Surgical History Hx of colonoscopy Hx of hernia repair Family History Paternal Grandmother Cancer Maternal Grandfather Cancer Paternal Aunt Cancer Social History Household Members: None Housing: Apartment Are you a primary healthcare management to a significant other at home: No Do you presently have visiting nurse or other home services: No Alcohol intake: current Alcohol intake frequency: holidays/special occasions only Alcohol type: beer Patient Tobacco Use Status: Never used Tobacco Advance Directives Date on File: 10/01/20 service: No Current occupational status: disabled Review of Systems Const All systems reviewed & are unremarkable except as noted in HPI and below ENT Denies dizziness Card Reports chest pain, Denies chest pain at rest, Denies chest pain with activity, Reports rapid heart rate (when he eats), Denies pedal edema, Denies edema, Denies leg edema, Denies lightheadedness, Denies palpitations, Denies dyspnea, Denies dyspnea on exertion and Denies orthopnea Resp Denies cough, Denies dyspnea and Denies dyspnea on exertion GI Denies hematochezia and Denies change in stool character Musc Denies abnormal gait, Denies limited range of motion, Denies muscle cramps, Denies muscle weakness, Denies numbness, Denies radiating pain into limb, Denies stiffness and Denies tingling Neuro Denies abnormal gait, Denies dizziness, Denies numbness and Denies tingling Endo Denies palpitations Physical Exam Vital Signs: Last Vital Signs Pulse 63 02/11/25 13:07 BP 110/80 02/11/25 13:07 BMI result Body Mass Index 24.1 Const General: cooperative, comfortable and no acute distress Orientation/consciousness: patient oriented x3 Neck Neck: Yes normal visual inspection Resp Effort & Inspection: normal respiratory effort Auscultation: clear to auscultation bilaterally, no rales, no rhonchi and no wheezes Cardio Jugular venous distension: no JVD Rate: regular rate Rhythm: regular rhythm Heart sounds: S1 normal heart sound present, S2 normal heart sound present, Murmur heart sound present (2/6 systolic) and no rubs Neuro General: patient oriented x3 Extrem General: Yes normal to inspection and No no pedal edema Psych Appearance: grossly normal Mental Status: mental status grossly normal Speech and movement: Normal speech and movement present Assessment & Plan Assessment & Plan (1) Non-rheumatic aortic stenosis: Code(s): I35.0 - Nonrheumatic aortic (valve) stenosis Category: Medical Plan: History of aortic stenosis and ascending aortic aneurysm. CTA of the chest done 2019 reported as showing ascending aorta 4.2-4.3 cm. Last Echocardiogram done 08/27/24 shows EF 60-65%, mild LVH, [id number] aortic stenosis, possible bicuspid aortic valve, mildly dilated ascending aorta 4.2 cm, unchanged from prior echo. Blood pressure currently well controlled. He is on statin therapy. Instructed on activity as tolerated but avoid lifting over 40 lb. Will arrange for repeat echocardiogram prior to next visit. Cardiology follow-up 1 year, sooner if needed. (2) Ascending aortic aneurysm: Code(s): I71.21 - Aneurysm of the ascending aorta, without rupture Category: Medical Qualifiers: Presence of rupture: without rupture Qualified Code(s): I71.21 - Aneurysm of the ascending aorta, without rupture Plan: As above (3) Hypertension: Code(s): I10 - Essential (primary) hypertension Category: Medical Plan: Well controlled. No med changes made. He is currently on hydralazine and amlodipine for blood pressure control. (4) Hyperlipidemia: Code(s): E78.5 - Hyperlipidemia, unspecified Category: Medical Plan: LDL goal less than 100, ideally. He is on atorvastatin. Lipid profiles followed by PCP (5) Atypical chest pain: Code(s): R07.89 - Other chest pain Category: Medical Plan: Reports of random atypical chest pains. Does not sound cardiac. No plan for further testing at this time. s/s angina reviewed with him. Plan Time spent on chart review, documentation, interview and assessment Orders: Orders CA echo transthoracic complete 11 Months I35.0 - Nonrheumatic aortic (valve) stenosis, I71.21 - Aneurysm of the ascending aorta, without rupture Coding Level of Care Code Est Pt Level 4 (03323) Complex EM visit Add On G2211 Diagnoses Non-rheumatic aortic stenosis I35.0 Aneurysm of ascending aorta without rupture I71.21 Presence of rupture: without rupture Hypertension I10 Hyperlipidemia E78.5 Atypical chest pain R07.89 Time Spent (min) 28
--- OUTSIDE RECORDS SUMMARY | 2025-02-11 14:19 | XMS_ITS | Encounter Summary ---
Author Organization [employer] [facility] Address [address] 7[address] [place] [address] Care Team Providers Care Window Shade Cloth Sewer Name Role Phone Veronica Gallardo MD Primary Care Provider [phone] Brien Vargas PharmD Unavailable [phone] Reason for Visit * Reason Comments Med Refill Encounter Details Date Type Department Care Team (Late st Contact Info) Description 10/12/2023 Refill [facility] 230 [place], [place] [phone] Veronica Gallardo MD 230 [place], [place] [phone] Back pain with left-sided radiculopathy Social History [...] Description 04/11/2025 11:00 AM EDT Medication Management [facility] 230 [place] [address] Brien Vargas, PharmD 230 [place] [address] documented as of this encounter Goals Goal [...] documented as of this encounter Care Teams Window Shade Cloth Sewer Relationship Specialty Start Date End Date Veronica Gallardo MD [address] [place] [id number] PCP - General Family Medicine 08/09/12 Brien Vargas, PharmD [address] [place] [address] [phone] Pharmacist Internal Medicine 11/30/22 documented as of this encounter
--- OUTSIDE RECORDS SUMMARY | 2025-02-11 14:19 | XMS_ITS | Encounter Summary ---
Author Organization [employer] [facility] Address [address] [place] [address] Care Team Providers Care Edger Runner Name Role Phone Veronica Gallardo MD Primary Care Provider [phone] Brien Vargas PharmD Unavailable [phone] Encounter Details Date Type Department Care Team (Late st Contact Info) Description 04/25/2024 Orders Only [facility] [address] [place], [place] [phone] Veronica Gallardo MD 230 [place], [place] [phone] Hypertension, unspecified type Social History Tobacco Use [...] 11:00 AM EDT Medication Management [facility] [address] [place] [address] Brien Vargas PharmD [address] [place] [address] documented as of this encounter Goals Goal [...] EDT Narrative 05/03/2024 10:18 AM EDT ? [facility] ?[address] ?[place] [address] ?XRay Report ? Signed ? Patient: Dash Henriquez,Chriss ?MR#: ?? [id number] ? : 1955 ?Acct:[id number] ? Age/Sex: 68 / M ?ADM Date: 07/25/24 ? Loc: HO.ED ? Attending Dr: ? Ordering Physician: Flo Fleming MD ?? Date of Service: 05/03/24 ?? Procedure(s): XR chest 1V ?? Accession Number(s): [id number] ? cc: Flo Flemign MD; Veronica Gallardo MD ? EXAMINATION: ?? [...] 1015 ? DD/ 0930 ? TD/TT: ? [employer]: PD ? Procedure Note Yojana, Maria Luisa - 05/03/[address] [address] XRay Report Signed Patient: Lenard Munoz#: [id number] : 1955cct:[id number] Age/Sex: 68 / MADM Date: 05/03/24 Loc: HO.ED Attending Dr: Ordering Physician: Flo Fleming MD Date of Service: 05/03/24 Procedure(s): XR chest 1V Accession Number(s): [id number] cc: lFo Fleming MD; Veronica Gallardo MD EXAMINATION: XR [...] in OV> 05/03/24 1015 DD/ 0930 TD/TT: [employer] Buffer: [facility] External Provider IMG XR PROCEDURES Final Result documented in this encounter Visit Diagnoses Diagnosis Hypertension, unspecified type documented in this encounter Additional Health Concerns Assessment Noted Time PHQ-9 Depression Total Score: 0 03/24/20 23 11:18 AM EDT documented as of this encounter Care Teams Edger Runner Relationship Specialty Start Date End Date Veronica Gallardo MD [address] [place] [address] PCP - General Family Medicine 08/09/12 Brien Vargas, PallaviD [address] [place] [phone] Pharmacist Internal Medicine 11/30/22 documented as of this encounter
--- OUTSIDE RECORDS SUMMARY | 2025-02-11 14:19 | XMS_ITS | Encounter Summary ---
Author Organization [facility] Address [address] [place] [address] Care Team Providers Care Piano Case Maker Name Role Phone Veronica Gallardo MD Primary Care Provider [phone] Brien Vargas PharmD Unavailable [phone] Reason for Referral * Consultation (Routine) - Pending Review Specialty Diagnoses / Procedures Referred By Contac t Referred To Contact Pharmacy Diagnoses Hypertension, unspecified type Veronica Gallardo MD [address] [place] [address] Phone: tel: fax: Referral ID Status Reason Start Date Expiration Date Visits Requested Visits Authorized [id number] Pending Review Consult and Treat 10/12/2024 10/12/2025 6 6 Encounter Details Date Type Department Care Team (Late st Contact Info) Description 10/12/2024 Orders Only [facility] [address] [place] [address] [phone] Veronica Gallardo MD [address] [place], [place] [phone] Hypertension, unspecified type (Primary Dx) Social History [...] Description 04/11/2025 11:00 AM EDT Medication Management [facility] [address] [place] [address] Brien Vargas PharmD [address] [place] [address] Scheduled Referrals Name Type Priority Associated Diagnoses [...] documented as of this encounter Care Teams Piano Case Maker Relationship Specialty Start Date End Date Veronica Gallardo MD [address] [place] [phone] PCP - General Family Medicine 08/09/12 Brien Vargas, PallaviD [address] [place] [phone] Pharmacist Internal Medicine 11/30/22 documented as of this encounter
--- OUTSIDE RECORDS SUMMARY | 2025-02-11 14:19 | XMS_ITS | Encounter Summary ---
Author Organization [employer] [facility] Address [address] [place] [address] Care Team Providers Care Lockstitch Cup Setter Name Role Phone Veronica Gallardo MD Primary Care Provider [phone] Brien Vargas PharmD Unavailable Reason for Visit * Reason Comments Med Refill Encounter Details Date Type Department Care Team (Late st Contact Info) Description 08/14/2023 Refill [facility] 230 [place], [place] [phone] Brien Vargas, PharmD 230 [place], [place] [phone] Essential hypertension Social History Tobacco Use Types [...] Vargas PharmD - 08/23/2023 11:57 AM EST [facility] will send 1 month fill of hydralazine 25 mg PO TID. Patient rescheduled last cardiology and nephrology visits. Needs to keep upcoming CDTM visit 09/09/2023. documented in this encounter Plan of Treatment Upcoming Encounters Date Type Department Care Team (Late st Contact Info) Description 04/11/2025 11:00 AM EDT Medication Management [facility] [address] [place] [address] Brien Vargas PharmD [address] [place] [address] documented as of this encounter Goals Goal [...] documented as of this encounter Care Teams Lockstitch Cup Setter Relationship Specialty Start Date End Date Veronica Gallardo MD [address] [place] [address] PCP - General Family Medicine 08/09/12 Brien Vargas PharmD [address] [place] [address] Pharmacist Internal Medicine 11/30/22 documented as of this encounter
--- OUTSIDE RECORDS SUMMARY | 2025-02-11 14:19 | XMS_ITS | Encounter Summary ---
Author Organization [employer] [facility] Address [address] [place] [address] Care Team Providers Care Upholstery Auto Trimmer Name Role Phone Veronica Gallardo MD Primary Care Provider [phone] Brien Vargas PharmD Unavailable [phone] Encounter Details Date Type Department Care Team (Late Contact Info) Description 10/12/2022 Orders Only [facility] [address] [place], [place] [phone] Deya Barber LPN Social History Tobacco Use [...] Description 04/11/2025 11:00 AM EDT Medication Management [facility] 230 [place], [place] [phone] Brien Vargas, PharmD [address] [place], [place] [phone] documented as of this encounter Visit Diagnoses Not on filedocumented in this encounter Care Teams Upholstery Auto Trimmer Relationship Specialty Start Date End Date Veronica Gallardo MD [address] [place] [address] PCP - General Family Medicine 08/09/12 Brien Vargas, PallaviD [address] [place] [address] Pharmacist Internal Medicine 11/30/22 documented as of this encounter
--- OUTSIDE RECORDS SUMMARY | 2025-02-11 14:19 | XMS_ITS | Encounter Summary ---
Author Organization [employer] Address [address] [place] [address] Care Team Providers Care Locker Attendant Name Role Phone Veronica Gallardo MD Primary Care Provider [phone] Brien Vargas PharmD Unavailable [phone] Encounter Details Date Type Department Care Team (Late st Contact Info) Description 11/04/2023 Orders Only [facility] [address] [place], [place] [phone] Veronica Gallardo MD [address] [place], [place] [phone] Alcohol use disorder, moderate, in early remission [...] Description 04/11/2025 11:00 AM EDT Medication Management [facility] [address] [place] [address] Brien Vargas, Efrain [address] [place] [address] documented as of this encounter Goals Goal [...] documented as of this encounter Care Teams Locker Attendant Relationship Specialty Start Date End Date Veronica Gallardo MD [address] [place] [address] PCP - General Family Medicine 08/09/12 Brien Vargas, PharmD [address] [place] [address] [phone] Pharmacist Internal Medicine 11/30/22 documented as of this encounter
--- OUTSIDE RECORDS SUMMARY | 2025-02-11 14:19 | XMS_ITS | Clinical Summary ---
Author Organization [employer] Address [address] [facility] 7[address] [place] [address] Care Team Providers Care Extractor Machine Operator Name Role Phone Veronica Gallardo MD Primary Care Provider [phone] Brien Vargas PharmD Unavailable [phone] Allergies Active Allergy Reactions Criticality Noted Date [...] CLINIC 60 tablet 2 11/27/19 25 Active phenytoin ER (Dilantin) 100 [...] ALLERGIES 90 tablet 1 01/01/20 25 Active gabapentin (Neurontin) 300 MG capsuleIndicatio ns:Back pain with left-sided radiculopathy TAKE 1 CAPSULE BY MOUTH AT BEDTIME NEEDED FOR PAIN 30 capsule 1 02/01/20 25 Active gabapentin (Neurontin) 300 MG capsuleIndicatio ns:Back pain with left-sided radiculopathy TAKE 1 CAPSULE BY MOUTH AT BEDTIME NEEDED FOR PAIN 30 capsule 1 11/27/19 25 2024 Discontinued Active Problems Problem Noted Date [...] 3:50 PM EST): - followed by [facility] urology - most recent renal US in Jun 2023 - continue surveillance Non-rheumatic aortic stenosis 06/03/2023 Assessment & Plan (12/12/2023 3:47 PM EST): - most recent transthoracic echocardiogram on 09/05/23 showing mild-moderate aortic stenosis and trivial aortic regurgitation - continue following management recommendations by alumni relations officer Benign prostatic hyperplasia 03/28/2023 Overview (03/28/2023): -previously following with Urologist, last seen in 2017&2019 -will check PSA -will refer him back to Urologist for further evaluation Assessment & Plan (06/21/2024 11:09 AM EDT): - followed by [facility] urology, last seen in Nov 2023 - PSA has been normal level - continue tamsulosin Assessment & Plan (12/12/2023 3:49 PM EST): - followed by [facility] urology, last seen in Nov 2023 - PSA has been normal level - continue tamsulosin Assessment & Plan (07/15/2023 6:41 AM EDT): - previously followed by urologist, last seen in 2017 - recently seen again by [facility] urology in May 2023 - CT in [...] EDT): -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 -Due to Coumadin use, Rifampin was contraindicated. Pt was started on Isoniazid, but the treatment had to be interrupted multiple times because of elevated LFT. Pt was drinking alcohol excessively during the treatment. -His case was presented to [facility], and pt had a direct observation therapy. 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 -Due to Coumadin use, Rifampin was contraindicated. Pt was started on Isoniazid, but the treatment had to be interrupted multiple times because of elevated LFT. Pt was drinking alcohol excessively during the treatment. -His case was presented to [facility], and pt had a direct observation therapy. -He finally completed 12 weeks of 900mg INH/900mg Rifapentine/ B6 50mg on 02/14/2019 History of syphilis 11/19/2022 History of shingles 11/19/2022 Major depression 11/09/2022 History of alcohol use disorder 11/09/2022 Assessment & Plan (11/19/2022 5:42 PM EST): - graduated from AUD clinic - continue naltrexone - pt is aware of recovery support resources at [facility] Alcohol use disorder, moderate, in early remissi [...] (06/21/2024 11:09 AM EDT): - followed by mixer and blender, last seen in Jul 2023 - normal erythropoietin level - all other work-up has been normal Assessment & Plan (12/12/2023 3:53 PM EST): - followed by mixer and blender, last seen in Jul 2023 - normal erythropoietin level - all other work-up has been normal Assessment & Plan (07/15/2023 6:41 AM EDT): - evaluated by mixer and blender, last seen in January 2023 - normal erythropoietin level - all other work-up has been normal - US was ordered by mixer and blender; advised to complete evaluation Assessment & Plan (11/19/2022 5:28 PM EST): - evaluated by mixer and blender, last seen on 07/13/22 - normal erythropoietin level - all other work-up has been normal - most recent hematocrit 45 on 09/16/22 - US was ordered by mixer and blender; advised to complete evaluation parts counterman (current) use of anticoagulants 2021 Assessment & Plan (2023 10:50 AM EDT): - indication: recurrent / chronic DVT, question of hypercoagulable disorder (elevated homocysteine) -managed by [facility] -Most recent INR-->3.4 on 03/18/23 -Current medication [...] of hypercoagulable disorder (elevated homocysteine) -managed by [facility] -Most recent INR-->3.4 on 03/18/23 -Current medication [...] -Emphasized the importance of keeping appt with alumni relations officer; pt verbalized understanding Assessment & Plan (12/12/2023 3:07 PM EST): -Most recent TTE on 09/05/23 Normal EF, mild-mod aortic stenosis and trivial aortic regurgitation with possible bicuspid aortic valve. Ascending aorta at 42 mm -Continue working on risk factor management -Emphasized the importance of keeping appt with alumni relations officer; pt verbalized understanding Assessment & Plan (07/15/2023 6:32 AM EDT): - Echo on 03/31/22 EF 60-65% showed severely calcified aortic valve, stenosis and mild regurgitation (in HFCCA). - Emphasized the importance of keeping appt with alumni relations officer; pt verbalized understanding Assessment & Plan (11/09/2022 11:55 AM EST): - ECHO on 03/31/22 EF 60-65% showed severely calcified aortic valve, stenosis and mild regurgitation. -Pt was discharged from previous Product Inspection Supervisor and will send to new Product Inspection Supervisor. Alcohol use 11/16/2018 Stage 3 chronic kidney disease 05/03/2016 Assessment & Plan (06/21/2024 11:09 AM EDT): -Referred back to automobile service station manager after last visit in Jul 2023 -Patient had an appointment in [facility], which was rescheduled for 01/09/24 -09/10/16 Renal US wnl, no renal artery stenosis. -Hx elevated K with ACEI -Avoid NSAIDs / nephrotoxic drugs. -Use renal dosing. -Emphasized the importance of keeping appt Assessment & Plan (12/12/2023 3:52 PM EST): -Referred back to automobile service station manager after last visit in Jul 2023 -Patient had an appointment in [facility], which was rescheduled for 01/09/24 -09/10/16 Renal US wnl, no renal artery stenosis. -Hx elevated K with ACEI -Avoid NSAIDs / nephrotoxic drugs. -Use renal dosing. -Emphasized the importance of keeping appt Assessment & Plan (07/15/2023 6:39 AM EDT): -Followed by automobile service station manager, last seen ? -Mildly elevated K. Monitor closely with ACEI. -09/10/16 Renal US wnl, no renal artery stenosis. -Avoid NSAIDs / nephrotoxic drugs. -Use renal dosing. -Emphasized the importance of keeping appt Assessment & Plan (03/24/2023 12:38 PM EDT): -Followed by automobile service station manager, last seen -Currently on lisinopril 5 mg daily. -Mildly elevated K. Monitor closely with ACEI. -Most recent INR-->3.0 on 11/09/22 -09/10/16 Renal US wnl, no renal artery stenosis. -Avoid NSAIDs / nephrotoxic drugs. -Use renal dosing. Assessment & Plan (11/19/2022 6:02 PM EST): -Followed by automobile service station manager, last seen -Currently on lisinopril 5 mg [...] goal , ?adherence to medication -Comanaged with alumni relations officer, pharmD, and automobile service station manager -Continue working on life style modifications. -Continue amlodipine 10 mg daily -Continue hydralazine 50 mg tid --Treatment history: -Lisinopril was decreased to 2.5 mg daily after AAYUSH with hyperkalemia secondary to renal hypoperfusion in a setting of CKD in summer 2016. Completely discontinued by automobile service station manager -Most recent echo: 09/05/23 EF 60-65%. Mild . Thoracic aortic aneurysm 4.2 cm - Follow up in 3 mo or sooner if any problem arises Assessment & Plan (03/13/2024 10:47 AM EDT): -Goal BP < 140/90 per JNC-8, < 130/80 per ACC/AHA guideline -BP not at goal , ?adherence to medication -Comanaged with alumni relations officer, pharmD, and automobile service station manager -Continue working on life style modifications. -Continue amlodipine 10 mg daily -Continue hydralazine 50 mg tid --Treatment history: -Lisinopril was decreased to 2.5 mg daily after AAYUSH with hyperkalemia secondary to renal hypoperfusion in a setting of CKD in summer 2016. Completely discontinued by automobile service station manager -Most recent echo: 09/05/23 EF 60-65%. Mild . Thoracic aortic aneurysm 4.2 cm - Follow up in 3 mo or sooner if any problem arises Assessment & Plan (12/12/2023 3:05 PM EST): -Goal BP < 140/90 per JNC-8, < 130/80 per ACC/AHA guideline -BP not at goal , ?adherence to medication -Comanaged with alumni relations officer, pharmD, and automobile service station manager -Continue working on life style modifications. -Continue amlodipine 10 mg daily -Continue hydralazine 50 mg tid --Treatment history: -Lisinopril was decreased to 2.5 mg daily after AAYUSH with hyperkalemia secondary to renal hypoperfusion in a setting of CKD in summer 2016. Completely discontinued by automobile service station manager -Most recent echo: 09/05/23 EF 60-65%. Mild . Thoracic aortic aneurysm 4.2 cm - Follow up in 3 mo or sooner if any problem arises Assessment & Plan (07/15/2023 6:34 AM EDT): -Goal BP < 140/90 per JNC-8, < 130/80 per ACC/AHA guideline -BP not at goal , ?adherence to medication -Comanaged with alumni relations officer, pharmD, and automobile service station manager -Continue working on life style modifications. -Continue amlodipine 10 mg daily -Continue hydralazine 25 mg tid --Treatment history: -Lisinopril was decreased to 2.5 mg daily after AAYUSH with hyperkalemia secondary to renal hypoperfusion in a setting of CKD in summer 2016. Completely discontinued by automobile service station manager -Most recent echo: 03/31/22 EF 60-65%. Mild [...] We need to confirm this dosing with alumni relations officer. --Treatment history: -Lisinopril was decreased to 2.5 [...] We need to confirm this dosing with alumni relations officer. 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 Evaluated by mixer and blender for hypercoagulable disorder. Evaluation is incomplete because he was on Coumadin. He was recommended indefinite warfarin treatment. Assessment & Plan (03/28/2023 1:04 PM EDT): Hx of elevated homocysteine. Evaluated by mixer and blender for hypercoagulable disorder. Evaluation is incomplete because he was on Coumadin. He was recommended indefinite warfarin treatment. Depressive disorder 11/24/2012 Assessment & Plan (12/12/2023 3:53 PM EST): - [facility] provider : Francisco Javier Forrest - Hx suicidal ideation - Lost his in 2014 due to pancreatic cancer, and his psychosocial health worsened - Continue buspirone and mirtazapine as prescribed by psychiatarist Assessment & Plan (2023 10:43 AM EDT): - [facility] provider : Francisco Javier Forrest - Hx suicidal ideation - Lost his in 2014 due to pancreatic cancer, and his psychosocial health worsened - Continue buspirone and mirtazapine as prescribed by psychiatarist Assessment & Plan (03/24/2023 12:38 PM EDT): - [facility] provider : Francisco Javier Forrest - Hx suicidal ideation - Lost his in 2014 due to pancreatic cancer, and his psychosocial health worsened - Continue buspirone and mirtazapine as prescribed by psychiatarist Assessment & Plan (11/19/2022 6:15 PM EST): - [facility] provider : Francisco Javier Forrest - Hx [...] and warfarin dose adjustment are managed by [facility] Leon team nurses -Most recent INR 2.3 on 06/18/23 -Continue following with [facility] team nurse for anticoagulation management Assessment & Plan (03/13/2024 10:46 AM EDT): -Recurrent and chronic DVT, mostly left side -Chronic left common femoral vein -Continue warfarin -INR monitoring and warfarin dose adjustment are managed by [facility] Leon team nurses -Most recent INR 2.3 on 06/18/23 -Continue following with [facility] team nurse for anticoagulation management Assessment & Plan (12/12/2023 3:04 PM EST): -Recurrent and chronic DVT, mostly left side -Chronic left common femoral vein -Continue warfarin -INR monitoring and warfarin dose adjustment are managed by [facility] Leon team nurses -Most recent INR 2.3 on 06/18/23 -Continue following with [facility] team nurse for anticoagulation management Assessment & Plan (07/15/2023 6:37 AM EDT): -Recurrent and chronic DVT, mostly left side -Chronic left common femoral vein -Continue warfarin -INR monitoring and warfarin dose adjustment are managed by [facility] Leon team nurses -Most recent INR 2.3 on 06/18/23 -Continue following with [facility] Leon team nurse for anticoagulation management Assessment & Plan (03/24/2023 12:37 PM EDT): -Recurrent and chronic DVT, mostly left side -Chronic left common femoral vein -Continue warfarin -INR monitoring and warfarin dose adjustment are managed by [facility] Leon team nurses -Most recent INR-->3.0 on 11/09/22 -Continue following with [facility] Leon team nurse for anticoagulation management Assessment & Plan (11/19/2022 6:00 PM EST): -Recurrent and chronic DVT, mostly left side -Chronic left common femoral vein -Continue warfarin -INR monitoring and warfarin dose adjustment are managed by [facility] Green team nurses -Most recent INR-->3.0 on 11/09/22 -Continue following with [facility] team nurse for anticoagulation management Seizure disorder [...] Encounters Date Type Department Care Team Description 02/01/2025 1:00 PM EDT Clinical Support [facility] MEDICINE [address] [place] [address] Earline Quinn RN residential (current) use of anticoagulants 02/01/2025 Travel 01/31/2025 Refill [facility] [address] [place] [address] Veronica Gallardo MD Back pain with left-sided radiculopathy 01/18/2025 10:00 AM EDT Clinical Support [facility] MED[facility] [address] [facility] [place] [address] Earline Quinn, RENNY parts counterman (current) use of anticoagulants 01/04/2025 11:00 AM EDT Clinical Support [facility] [place] [address] Earline Quinn RN parts counterman (current) use of anticoagulants 01/04/2025 Travel 12/30/2024 Refill [facility] WALK[facility]IN CENTER [address] [facility] [place] [address] Veronica Gallardo MD Intercostal pain 12/21/2024 10:30 AM EDT Clinical Support [facility] [place] [address] Earline Quinn RN residential (current) use of anticoagulants 12/21/2024 Travel 12/17/2024 10:00 AM EDT Office Visit [facility] OPTOMETRY [address] [place] [address] Johnny, Flora, OD Combined forms of age-related cataract of both eyes (Primary Dx); MGD (meibomian gland dysfunction); Nevus of conjunctiva, right; History of excision of pterygium 12/17/2024 Travel 12/11/2024 2:30 PM EST Office Visit [facility] OPTOMETRY [address] [place] [address] Johnny, Flora, OD Nevus of conjunctiva, right (Primary Dx); History of excision of pterygium; Presbyopia 12/11/2024 Travel 12/07/2024 1:00 PM EST Clinical Support [facility] [place] [address] Earline Quinn, RENNY residential (current) use of anticoagulants 12/07/2024 Travel 12/02/2024 Refill [facility] [place] [address] Veronica Gallardo MD 11/30/2024 11:30 AM EST Clinical Support [facility] [place] [address] Earline Quinn RN residential (current) use of anticoagulants 11/30/2024 Travel 11/25/2024 Refill [facility] [address] [place] [address] Veronica Gallardo MD Back pain with left-sided radiculopathy 11/25/2024 Refill [facility] MEDICINE [address] [place] [address] Chayito Guan MD from Last 3 Months Immunizations Name Administration [...] your housing situation today? I have primo sing 03/13/[address] you li [...] Description 04/11/2025 11:00 AM EDT Medication Management [facility] MEDICINE [address] [place] [address] Brien Vargas, PharmD [address] [place] [address] Health Maintenance Due Date Last Done Comments [...] Date/Time Associated Diagnosis Comments POCT INR Routine 02/01/2025 parts counterman (current) use of anticoagulants POCT INR Routine 01/18/2025 residential (current) use of anticoagulants POCT INR Routine 01/04/2025 parts counterman (current) use of anticoagulants POCT INR Routine 12/21/2024 residential (current) use of anticoagulants POCT INR Routine 12/07/2024 parts counterman (current) use of anticoagulants POCT INR Routine 11/30/2024 residential (current) use of anticoagulants HEPATITIS C AB W/REFL TO HCV RNA, QN, PCR Routine 06/21/2024 1:20 PM EDT History of syphilis LIPID PANEL WITH REFLEX TO DIRECT LDL Routine 06/21/2024 1:20 PM EDT Dyslipidemia from Last 3 Months or Most Recently Relevant to Health Maintenance Results * POCT INR manually resulted (02/01/2025) Only the most recent of6 resultswithin the time period is included. Protime INR 2.6 2 - 3 Blood Capillary blood specimen / Unknown 02/01/2025 Veronica Gallardo MD POINT OF CARE TEST ENTER/EDIT OR DERABLES Final Result * Lipid Panel with Reflex to Direct LDL (06/21/2024 1:20 PM EDT) Triglycerides 138 <150 mg/dL [facility] Comment:Desirable Triglyceri de: less than 150 mg/dLBorderline High Triglyceride 150-199 mg/dLHigh Triglyceride: 200-499 mg/dLVery High Triglyceride: greater than or equal to 5OO mg/dL Cholesterol 154 <200 mg/dL [facility] Comment:Desirable Cholestero l: less than 200 mg/dLBorderline High Cholesterol: 200-239 mg/dLHigh Cholesterol: greater than 239 mg/dL LDL Cholesterol Calculated 82 <100 mg/dL [facility] Comment:Desirable LDL: less than 100 mg/dLNear Optimal/Above Optimal LDL: 110- 129 mg/dLBorderline High LDL: 130-159 mg/dLHigh LDL: 160-189 mg/dLVery High LDL: greater than or equal to 190 mg/dL HDL Cholesterol 45 >40 mg/dL [facility] Comment:Desirable HDL: great er than 40 mg/dL Note: This HDL assay may give artificially low results in patients with liver disease. Blood 06/21/2024 1:20 PM EDT 06/21/2024 4:06 PM EDT Veronica Gallardo MD LAB BLOOD ORDERABLES Final Resul t Performing Organization Address [facility] Co de Phone Number [facility] [address] [place] [address] [phone] * Hepatitis C Antibody with Reflex to HCV, RNA, Quantitative, Real-Time PCR (06/21/2024 1:20 PM EDT) Hepatitis C Antibody Nonreactive Nonreactive [facility] Comment:Antibodies to HCV no t detected; does not exclude early acuteHCV infection. Blood Venous blood specimen / Unknown 06/21/2024 1:20 PM EDT 06/21/2024 4:06 PM EDT Veronica Gallardo MD LAB BLOOD ORDERABLES Final Resul t [facility] [address] [place] [address] [phone] from Last 3 Months or Most Recently Relevant to Health Maintenance Insurance [facility] [employer] OPT[employer] (HMO D-SNP) Care Teams Extractor Machine Operator Relationship Specialty Start Date End Date Veronica Gallardo MD [address] [place] [address] PCP - General Family Medicine 08/09/12 Brien Vargas, PharmD [address] [place] [address] Pharmacist Internal Medicine 11/30/22
--- OUTSIDE RECORDS SUMMARY | 2025-02-11 14:19 | XMS_ITS | Encounter Summary ---
Author Organization [employer] [facility] Address [address] [place] [address] Care Team Providers Care Electroplater Name Role Phone Veronica Gallardo MD Primary Care Provider [phone] Brien Vargas PharmD Unavailable [phone] Reason for Visit * Reason Comments Med Refill Encounter Details Date Type Department Care Team (Late Contact Info) Description 01/14/2023 Refill [facility] [address] [place] [address] [phone] Estefania Gilbert MD [address] [place] [phone] Social History Tobacco Use Types Packs/Day Years [...] Description 04/11/2025 11:00 AM EDT Medication Management [facility] [address] [place] [address] [phone] Brien Vargas, PharmD [address] [place] [address] documented as of this encounter Goals Goal Patient Goal Type Associated Problems Recent Progress Patient-Stated? Author Blood Pressure < 140/90 Blood Pressure 123/83( 025 10:38 AM EST) No Brien Vargas, PharmD documented as of this encounter Visit Diagnoses Not on filedocumented in this encounter Care Teams Electroplater Relationship Specialty Start Date End Date Veronica Gallardo MD [address] [place] [address] PCP - General Family Medicine 08/09/12 Brien Vargas, PharmD [address] [place] [phone] Pharmacist Internal Medicine 11/30/22 documented as of this encounter
--- OUTSIDE RECORDS SUMMARY | 2025-02-11 14:19 | XMS_ITS | Encounter Summary ---
Author Organization [employer] [facility] Address [address] [facility] [address] [place] [address] Care Team Providers Care Chicken Dresser Name Role Phone Veronica Gallardo MD Primary Care Provider [phone] Brien Vargas PharmD Unavailable [phone] Encounter Details Date Type Department Care Team (Late Contact Info) Description 06/27/2023 Telephone [facility] MEDICINE [address] [place] [address] [phone] Veronica Gallardo MD [address] [place] [address] Social History Tobacco Use Types Packs/Day Years [...] Description 04/11/2025 11:00 AM EDT Medication Management [facility] MEDICINE [address] [place] [address] [phone] Brien Vargas, PharmD [address] [place], [place] [phone] documented as of this encounter Goals Goal [...] documented as of this encounter Care Teams Chicken Dresser Relationship Specialty Start Date End Date Veronica Gallardo MD [address] [place] [address] PCP - General Family Medicine 08/09/12 Brien Vargas, PallaviD [address] [place] [address] Pharmacist Internal Medicine 11/30/22 documented as of this encounter
--- OUTSIDE RECORDS SUMMARY | 2025-02-11 14:19 | XMS_ITS | Encounter Summary ---
Author Organization [employer] [facility] Address [address] [facility] 7t [place] [address] Care Team Providers Care Assistant Tennis Professional Name Role Phone Veronica Gallardo MD Primary Care Provider [phone] Brien Vargas PharmD Unavailable [phone] Encounter Details Date Type Department Care Team (Late Contact Info) Description 09/09/2022 Orders Only [facility] [address] [place] [address] [phone] Veronica Gallardo MD [address] [place] [phone] Social History Tobacco Use Types Packs/Day Years [...] Description 04/11/2025 11:00 AM EDT Medication Management [facility] [address] [place] [phone] Brien Vargas, PharmD [address] [place], [place] [phone] documented as of this encounter Visit Diagnoses Not on filedocumented in this encounter Care Teams Assistant Tennis Professional Relationship Specialty Start Date End Date Veronica Gallardo MD [address] [place] [phone] PCP - General Family Medicine 08/09/12 Brien Vargas, PallaviD [address] [place] [address] Pharmacist Internal Medicine 11/30/22 documented as of this encounter
== END 2025-02-11 13:34 | disposition home or self-care (01) ==
LOC: HO.HCS 12:57
PROVIDERS: PCP Family Medicine; Visit Provider Nurse Practitioner Family
DX: I35.0 Nonrheumatic aortic (valve) stenosis (principal); I71.21 Aneurysm of the ascending aorta, without rupture; I10 Essential (primary) hypertension; E78.5 Hyperlipidemia, unspecified; R07.89 Other chest pain
CPT/HCPCS: 99214; G2211

== ENCOUNTER → 2025-02-11 12:56 | Outpatient (BNVA) | payer OTHER, SELFPAY | PROVIDERS: PCP Family Medicine; Visit Provider Nurse Practitioner Family | DX: I10 Essential (primary) hypertension (principal); E78.5 Hyperlipidemia, unspecified; I35.0 Nonrheumatic aortic (valve) stenosis; I71.21 Aneurysm of the ascending aorta, without rupture; R07.89 Other chest pain; Z79.01 Long term (current) use of anticoagulants; Z86.718 Personal history of other venous thrombosis and embolism | CPT/HCPCS: 99212 ==

== ENCOUNTER 2025-04-15 09:03 | Outpatient (REF) | payer OTHER, SELFPAY ==
--- OUTSIDE RECORDS SUMMARY | 2025-04-15 09:26 | XMS_ITS | Encounter Summary ---
Author Organization [employer] Address [address] [facility] 7t [place] [address] Care Team Providers Care Client Care Coordinator Name Role Phone Veronica Gallardo MD Primary Care Provider [phone] Brien Vargas PharmD Unavailable [phone] Encounter Details Date Type Department Care Team (Late st Contact Info) Description 06/27/2023 Telephone [facility] [address] [place] [address] [phone] Veronica Gallardo MD [address] [place] [address] [phone] Social History Tobacco Use Types Packs/Day Years [...] Upcoming Encounters Date Type Department Care Team (Latest Contact Info) Description 04/26/2025 10:30 AM EDT Anticoagulation - Warfarin Visit [facility] [address] [place] [address] [phone] documented as of this encounter Goals Goal Patient Goal Type Associated Problems Recent Progress Patient-Stated? Author Blood Pressure < 140/90 Blood Pressure 122/84( 025 10:59 AM EDT) No Brien Vargas, PharmD documented as of this encounter Visit Diagnoses Not on filedocumented in this encounter Additional Health Concerns Assessment Noted Time PHQ-9 Depression Total Score: 0 03/24/20 23 11:18 AM EDT documented as of this encounter Care Teams Client Care Coordinator Relationship Specialty Start Date End Date Veronica Gallardo MD [address] [place] [address] PCP - General Family Medicine 08/09/12 Brien Vargas, PallaviD [address] [place] [address] Pharmacist Internal Medicine 11/30/22 documented as of this encounter
[2025-04-15 11:22] LABS: MANUAL DIFF FLAG NO
[2025-04-15 11:35] LABS: Hematocrit 48.1 % (42.0-52.0); Hemoglobin 16.3 g/dl (14.0-18.0); Imm Gran Abs Auto 0.01 X10*3/uL (0.00-0.03); Imm Gran Pct Auto 0.3 % (0.0-0.4); Lymphocytes Absolute Auto 0.6 X10*3/uL (1.2-4.9); Mean Corpuscular HGB Conc 33.9 g/dl (31.0-36.0); Mean Corpuscular Hemoglobin 33.3 pg (27.0-33.0); Mean Corpuscular Volume 98.2 fL (80.0-98.0); NRBC Abs Auto 0.000 X10*3/uL (0.0-0.012); NRBC Pct Auto 0.0 /100WBC (0.0-0.2); Platelet Count 107 X10*3/uL (160-400); Red Blood Count 4.90 X10*6/uL (4.60-5.80); White Blood Count 3.2 X10*3/uL (4.8-10.8)
[2025-04-15 12:31] LABS: Alanine Aminotransferase 26 U/L (0-40); Albumin Level 4.1 g/dL (3.5-5.0); Alkaline Phosphatase 64 U/L (39-117); Anion Gap 10 (12-20); Aspartate Amino Transferase 20 U/L (5-37); Blood Urea Nitrogen 28 mg/dL (9-16); Calcium 9.4 mg/dL (8.4-10.2); Carbon Dioxide 24 mmol/L (22-29); Chloride 112 mmol/L (96-108); Estimated Glomerular Filt Rate 42; Potassium 4.3 mmol/L (3.3-5.1); Sodium 142 mmol/L (135-145); Total Protein 6.8 g/dL (6.5-8.0)
[2025-04-15 12:38] LABS: Prostate Specific Antigen 2.76 ng/mL (<0.05-4.0)
[2025-04-15 12:53] LABS: Folate 12.8 ng/mL (> or = 4.0); Vitamin B12 224 pg/mL (200-900)
[2025-04-15 12:58] LABS: Hemoglobin A1C 145.7826 umol/L; Total Hemoglobin (HGBA1C) 4243.9592 umol/L
[2025-04-15 13:03] LABS: CT PCR Urine NOT DETECTED (Not Detect.); NG PCR Urine NOT DETECTED (Not Detect.)
[2025-04-15 14:07] LABS: Cholesterol 168 mg/dL (<200); HDL Cholesterol 56 mg/dL (>40); Triglycerides 107 mg/dL (<150)
[2025-04-15 14:25] LABS: Reflex LDLD? No
[2025-04-16 08:13] LABS: HBsAGNum1 0.25 S/CO (0.00-0.99); HIV Num 1 0.05 S/CO (0.00-0.99); Hepatitis B Surface Antigen Negative (Negative); ~HepC Num1 0.14 S/CO (0.00-0.79); ~Hepatitis C Antibody Nonreactive (Nonreactive)
[2025-04-16 08:19] LABS: Syphilis Screen Nonreactive (Nonreactive)
== END 2025-04-15 09:04 | disposition home or self-care (01) ==
LOC: HO.HHCL 09:03
PROVIDERS: Internal Medicine Medical Oncology; Nurse Practitioner Family; PCP Family Medicine; Visit Provider Family Medicine
DX: R39.12 Poor urinary stream (principal); D75.1 Secondary polycythemia
CPT/HCPCS: 36415; 80053; 80061; 82306; 82607; 82746; 83036; 84153; 84443; 85025; 86780; 86803; 87340; 87389; 87491; 87591

== ENCOUNTER 2025-05-11 15:21 | Emergency (ER) | payer OTHER, SELFPAY ==
--- NOTE | ~2025-05-11 | XR_ITS ---
CLINICAL HISTORY: chest pain 2 view chest x-ray Comparison: CR/SR - XR CHEST 1V - 09/07/24 14:06 EST Findings: The lungs are clear. Heart size is normal. No acute fracture. IMPRESSION: 1. No acute findings. This document has been electronically signed by: Matty Mendenhall MD on 05/11/2025 17:00:37
--- NOTE | 2025-05-11 15:25 | ECG_ITS ---
Test Reason : CHEST PAIN Blood Pressure : */* mmHG Vent. Rate : 49 BPM Atrial Rate : 49 BPM P-R Int : 150 ms QRS Dur : 74 ms QT Int : 458 ms P-R-T Axes : 61 34 56 degrees QTcB Int : 413 ms Sinus bradycardia Otherwise normal ECG When compared with ECG of 07-Sep-2024 14:48, No significant change was found Referred By: Generic ED Physician Electronically Signed By: MARSHALL TATE MD
[2025-05-11 15:45] VITALS: BP 158/89; BP 190/104; PULSE 54; PULSE 55; RESP 16; TEMP 36.9; O2SAT 98; BMI 25.6
--- NOTE | 2025-05-11 15:45 | ED.GENADULT ---
HPI - General Adult General Chief complaint: Chest Pain Stated complaint: chest pain Time Seen by Provider: 05/11/25 15:37 Source: patient, EMS, RN notes reviewed, old records reviewed and fisher crab Mode of arrival: EMS Limitations: language barrier History of Present Illness ED Provider: Armani HPI narrative: Patient is a 69-year-old [place]-speaking male with history of aortic stenosis, hyperlipidemia, hypertension, ascending aortic aneurysm, history of DVT currently on warfarin, GERD, alcohol abuse, mood disorder, PVD, CKD, seizures presenting to the emergency department with complaint of left anterior chest pain which began around 2:00 p.m.. He states the pain is 6/10 and has not improved or worsened since onset. He denies associated dyspnea, nausea or vomiting but does report palpitations. Denies dizziness or lightheadedness. Denies recent cough or fever. States pain began while he was resting. MD complaint: chest pain Onset (ago): hour(s) Related Data Home Medications ?Medication ?Instructions ?Recorded ?Confirmed fluticasone propionate 50 1 spray intranasal DAILY 08/06/20 02/11/25 mcg/actuation nasal spray,suspension acetaminophen 325 mg capsule 650 mg PO Q8H PRN fever or pain 10/19/23 02/11/25 (Tylenol) amlodipine 10 mg tablet 10 mg PO DAILY 05/03/24 02/11/25 atorvastatin 10 mg tablet 10 mg PO BEDTIME 05/03/24 02/11/25 buspirone 30 mg tablet 30 mg PO BID 05/03/24 02/11/25 cholecalciferol (vitamin D3) 50 50 mcg PO DAILY 05/03/24 02/11/25 mcg (2,000 unit) capsule (Vitamin D3) docusate sodium 100 mg capsule 100 mg PO BID 05/03/24 02/11/25 folic acid 1 mg tablet 1 mg PO DAILY 05/03/24 02/11/25 gabapentin 300 mg capsule 300 mg PO DAILY 05/03/24 02/11/25 hydralazine 50 mg tablet 50 mg PO TID 05/03/24 02/11/25 loratadine 10 mg tablet 10 mg PO DAILY 05/03/24 02/11/25 mirtazapine 45 mg tablet 45 mg PO BEDTIME 05/03/24 02/11/25 omeprazole 20 mg capsule,delayed 20 mg PO DAILY 05/03/24 02/11/25 release phenytoin sodium extended 100 mg 100 mg PO TID 05/03/24 02/11/25 capsule thiamine HCl (vitamin B1) 100 mg 100 mg PO QAM 05/03/24 02/11/25 tablet warfarin 1 mg tablet 5 mg PO QWEEK 05/03/24 02/11/25 warfarin 4 mg tablet 4 mg PO DAILY 05/03/24 07/16/24 Previous Rx's ?Medication ?Instructions ?Recorded finasteride 5 mg tablet 5 mg PO DAILY 90 days #90 tabs 01/14/25 terazosin 5 mg capsule 5 mg PO BEDTIME 90 days #90 caps 01/14/25 Allergies Allergy/AdvReac Type Severity Reaction Status Date / Time ibuprofen (From Motrin) Allergy Intermediate Unknown Verified 05/11/25 15:48 acetaminophen (From Percocet) Allergy Unknown Verified 05/11/25 15:48 oxycodone Allergy Unknown Verified 05/11/25 15:48 Review of Systems Review of Systems: As per HPI Yes all other systems are reviewed and are negative Constitutional: Constitutional: Reports as per HPI PMFSH Past Medical History Medical History Ascending aortic aneurysm Colon cancer screening Hemorrhoid Aortic aneurysm GERD (gastroesophageal reflux disease) Chronic anticoagulation Alcohol abuse Mood disorder Mood disorder due to a general medical condition Peripheral vascular disease DVT (deep venous thrombosis) Hyperhomocysteinemia CKD (chronic kidney disease) Depression Seizure Surgical History Hx of colonoscopy Hx of hernia repair Family History Family History Paternal Grandmother Cancer Maternal Grandfather Cancer Paternal Aunt Cancer Social History Social History Household Members: None Housing: Apartment Are you a primary intensive care unit nurse to a significant other at home: No Do you presently have visiting nurse or other home services: No Alcohol intake: current Alcohol intake frequency: holidays/special occasions only Alcohol type: beer Patient Tobacco Use Status: Never used Tobacco Smoked in Last 30 Days: No Use of substances other than those prescribed or required for medical reasons: No Advance Directives: Yes Advance Directives on File: Yes Advance Directives Date on File: 10/01/20 Do you have a plan to hurt others: No Plan service: No Current occupational status: disabled Physical Exam ED Vital Signs: Vital Signs - 24 hr 05/11/25 15:45 05/11/25 16:19 05/11/25 18:09 Temperature 98.5 F 98.4 F 97.6 F Pulse Rate 54 53 60 Respiratory Rate 16 14 14 Blood Pressure 158/89 H 133/87 160/101 H Pulse Oximetry 98 97 98 Oxygen Delivery Method Room Air Room Air Room Air BMI result Body Mass Index 25.6 Const General: cooperative, healthy appearing and no acute distress Orientation/consciousness: oriented to person, oriented to place, oriented to time and patient oriented x3 Limitations: no limitations HENMT Head: Yes normocephalic and Yes atraumatic Ears: external ears normal General nose exam: Normal external nose present Face and sinus: Yes face symmetric Mouth: oropharynx normal and moist mucous membranes Throat: Yes uvula midline Eyes Pupils: Equal, round and reactive pupils present Neck Neck: Yes normal visual inspection and Yes supple Resp Effort & Inspection: normal respiratory effort and able to speak in complete sentences Auscultation: clear to auscultation bilaterally Cardio Rate: regular rate Rhythm: regular rhythm Heart sounds: S1 normal heart sound present and S2 normal heart sound present GI Palpation (GI): Soft to palpation and nontender Auscultation: normoactive bowel sounds General: Yes no CVA tenderness Back/Spine/Pelvis Back: no CVA tenderness Skin General skin exam: elasticity normal and turgor normal Neuro General: oriented to person, oriented to place, oriented to time, patient oriented x3, moves all extremities, no focal motor deficits and CN's II-XI intact bilaterally Cranial nerves: Yes Equal, round and reactive pupils present Cognition (Neuro): normal cognition Extrem General: Yes full ROM, Yes no pedal edema and Yes no calf tenderness Psych Mental Status: mental status grossly normal Affect: normal affect Thought process: Normal thought process present Course Reevaluation(s) Reevaluation #1: I Eunice Cruz PA-C have accepted care of the patient at signed out pending delta troponin and final disposition Delta troponin 18.8, no significant change Medications Administered Discontinued Medications Generic Name Dose Route Start Last Admin Trade Name Freq PRN Reason Stop Dose Admin Acetaminophen 975 mg 05/11/25 15:54 05/11/25 17:29 Acetaminophen 325 Mg Tablet PO 05/11/25 15:55 975 mg ONCE ONE Administration Medical Decision Making Medical Decision Making [facility] Narrative: Patient is a 69-year-old [place]-speaking male with history of aortic stenosis, hyperlipidemia, hypertension, ascending aortic aneurysm, history of DVT currently on warfarin, GERD, alcohol abuse, mood disorder, PVD, CKD, seizures presenting to the emergency department with complaint of left anterior chest pain which began around 2:00 p.m.. On exam patient is awake, A+Ox3, VS WNL, afebrile, normal neurological exam without focal deficits, physical exam findings as above. Given reported symptoms and physical exam findings, initial differential includes but is not limited to ACS/AR, muffled hearing effusion, electrolyte abnormality, anemia, cardiac arrhythmia, chest wall pain, costochondritis, musculoskeletal pain. Do not suspect AAA rupture, patient hemodynamically stable. EKG shows sinus bradycardia. Labs notable for slightly elevated troponin, will obtain repeat. X-ray chest notable for no evidence of pneumonia or pneumothorax. My interpretation is in agreement with the radiologist's interpretation. Patient signed out to JOSE Arechiga pending repeat troponin. Differential Diagnosis Differential Diagnoses: The differential diagnosis associated with the presentation includes as per [facility] Admission/Observation Consideration of admission/observation: Escalation of care including admission/observation considered Patient would have been admitted to the hospital had their clinical presentation warranted hospital admission. Lab Data [facility] Lab Attestation statement: I reviewed the patient's lab results. as per [facility] 05/11/25 16:05 05/11/25 16:05 Labs: Lab Results 05/11/25 05/11/25 Range/Units 16:05 18:58 WBC 5.2 (4.8-10.8) X10*3/uL RBC 4.76 (4.60-5.80) X10*6/uL Hgb 16.1 (14.0-18.0) g/dl Hct 45.9 (42.0-52.0) % MCV 96.4 (80.0-98.0) fL MCH 33.8 H (27.0-33.0) pg MCHC 35.1 (31.0-36.0) g/dl RDW 12.2 (11.0-16.0) % Plt Count 110 L (160-400) X10*3/uL MPV 9.8 (9.4-12.4) fL Immature Gran % (Auto) 0.2 (0.0-0.4) % Neut % (Auto) 77.9 H (45-73) % Lymph % (Auto) 10.6 L (20-40) % [place] % (Auto) 7.4 (2-11) % Eos % (Auto) 3.3 (0-4) % Baso % (Auto) 0.6 (0-2) % Lymph # (Auto) 0.6 L (1.2-4.9) X10*3/uL [place] # (Auto) 0.4 (0.1-1.2) X10*3/uL Eos # (Auto) 0.2 (0.0-0.4) X10*3/uL Baso # (Auto) 0.0 (0.0-0.2) X10*3/uL Abs Immat Gran (auto) 0.01 (0.00-0.03) X10*3/uL Absolute Neuts (auto) 4.0 (2.0-8.3) x10*3/uL Absolute Nucleated RBC 0.000 (0.0-0.012) X10*3/uL Nucleated RBC % (auto) 0.0 (0.0-0.2) /100WBC PT 29.9 H D (10.9-12.4) SEC INR 2.6 H (0.9-1.1) APTT 37.3 H (26.7-34.1) SEC Sodium 143 (135-145) mmol/L Potassium 4.5 (3.3-5.1) mmol/L Chloride 110 H (96-108) mmol/L Carbon Dioxide 26 (22-29) mmol/L Anion Gap 12 (12-20) BUN 27 H (9-16) mg/dL Creatinine 1.48 H (0.5-1.4) mg/dL Estim Creat Clear Calc 45.7 Estimated GFR 47 Random Glucose 99 (60-115) mg/dL Calcium 9.9 (8.4-10.2) mg/dL Magnesium 2.0 (1.6-2.6) mg/dL Total Bilirubin 0.5 (0.0-1.0) mg/dL AST 24 (5-37) U/L ALT 26 (0-40) U/L Alkaline Phosphatase 72 (39-117) U/L Troponin I High Sens 16.7 D 18.8 (<3.5-35.0) ng/L B-Natriuretic Peptide 62 (<100) pg/mL Total Protein 7.1 (6.5-8.0) g/dL Albumin 4.2 (3.5-5.0) g/dL Influenza Type A (PCR) NEGATIVE (Negative) Influenza Type B (PCR) NEGATIVE (Negative) RSV RNA Qual (PCR) NEGATIVE (Negative) SARS-CoV-2 RNA (RT-PCR) NEGATIVE (Negative) Independent Interpretation I performed an independent interpretation of an: EKG (EKG shows sinus bradycardia, rate 49 beats per minute, normal UT interval, slightly prolonged QT CP, no significant change from prior) and Plain X-Ray Interpretation: Chest x-ray is without evidence of pneumonia or pneumothorax Radiology Impression Discussion of test interpretation with radiology: I have reviewed the radiologist's reading. Radiologist Impression: 2 view chest x-ray Comparison: CR/SR - XR CHEST 1V - 09/07/24 14:06 EST Findings: The lungs are clear. Heart size is normal. No acute fracture. IMPRESSION: 1. No acute findings. External Record Review External record reviewed: Inpatient record, Office record and Outpatient record Discharge Plan Discharge Clinical Impression: Chest pain Patient Disposition: Home, Self-Care Instructions: Chest Pain (ED) Additional Instructions: You were evaluated in the emergency department today for chest pain. Your evaluation has shown no signs of medical conditions requiring emergent intervention at this time, however we recommend that you follow-up with your primary care physician or your mathematics teacher for further testing as an outpatient. Please schedule an appointment for follow-up with your primary care physician as soon as possible. Return to the emergency department if you experience worsening or uncontrolled chest pain, shortness of breath, lightheadedness, feeling faint, loss of consciousness, nausea, vomiting, or any other concerning symptoms. Prescriptions: No Action fluticasone propionate 50 mcg/actuation spray,suspension 1 spray intranasal DAILY acetaminophen [Tylenol] 325 mg capsule 650 mg PO Q8H PRN (Reason: fever or pain) amlodipine 10 mg tablet 10 mg PO DAILY atorvastatin 10 mg tablet 10 mg PO BEDTIME buspirone 30 mg tablet 30 mg PO BID thiamine HCl (vitamin B1) 100 mg tablet 100 mg PO QAM phenytoin sodium extended 100 mg capsule 100 mg PO TID warfarin 4 mg tablet 4 mg PO DAILY docusate sodium 100 mg capsule 100 mg PO BID gabapentin 300 mg capsule 300 mg PO DAILY omeprazole 20 mg capsule,delayed release(DR/EC) 20 mg PO DAILY mirtazapine 45 mg tablet 45 mg PO BEDTIME folic acid 1 mg tablet 1 mg PO DAILY hydralazine 50 mg tablet 50 mg PO TID warfarin 1 mg tablet 5 mg PO QWEEK Rx Instructions: 5mg on loratadine 10 mg tablet 10 mg PO DAILY cholecalciferol (vitamin D3) [Vitamin D3] 50 mcg (2,000 unit) capsule 50 mcg PO DAILY terazosin 5 mg capsule 5 mg PO BEDTIME 90 Days Qty: 90 3RF finasteride 5 mg tablet 5 mg PO DAILY 90 Days Qty: 90 3RF Print Language: [place]
[2025-05-11 16:09] LABS: MANUAL DIFF FLAG NO
[2025-05-11 16:10] LABS: Imm Gran Abs Auto 0.01 X10*3/uL (0.00-0.03); Imm Gran Pct Auto 0.2 % (0.0-0.4); NRBC Abs Auto 0.000 X10*3/uL (0.0-0.012); NRBC Pct Auto 0.0 /100WBC (0.0-0.2); PLT CLUMP 1; SCAN SMEAR FLAG 1
[2025-05-11 16:12] LABS: Hematocrit 45.9 % (42.0-52.0); Hemoglobin 16.1 g/dl (14.0-18.0); Lymphocytes Absolute Auto 0.6 X10*3/uL (1.2-4.9); Mean Corpuscular HGB Conc 35.1 g/dl (31.0-36.0); Mean Corpuscular Hemoglobin 33.8 pg (27.0-33.0); Mean Corpuscular Volume 96.4 fL (80.0-98.0); Platelet Count 110 X10*3/uL (160-400); Red Blood Count 4.76 X10*6/uL (4.60-5.80); White Blood Count 5.2 X10*3/uL (4.8-10.8)
[2025-05-11 16:19] VITALS: BP 133/87; PULSE 53; RESP 14; TEMP 36.9; O2SAT 97
[2025-05-11 16:22] LABS: INTERNATIONAL NORM RATIO 2.6 (0.9-1.1); Prothrombin Time 29.9 SEC (10.9-12.4)
[2025-05-11 16:24] LABS: Partial Thromboplastin Time 37.3 SEC (26.7-34.1)
[2025-05-11 16:29] LABS: Alanine Aminotransferase 26 U/L (0-40); Albumin Level 4.2 g/dL (3.5-5.0); Alkaline Phosphatase 72 U/L (39-117); Anion Gap 12 (12-20); Aspartate Amino Transferase 24 U/L (5-37); Blood Urea Nitrogen 27 mg/dL (9-16); Calcium 9.9 mg/dL (8.4-10.2); Carbon Dioxide 26 mmol/L (22-29); Chloride 110 mmol/L (96-108); Creatinine Clr Calc Pharmacy 45.7; Estimated Glomerular Filt Rate 47; Magnesium 2.0 mg/dL (1.6-2.6); Potassium 4.5 mmol/L (3.3-5.1); Sodium 143 mmol/L (135-145); Total Protein 7.1 g/dL (6.5-8.0)
[2025-05-11 16:39] LABS: B Type Natriuretic Peptide 62 pg/mL (<100)
[2025-05-11 16:46] LABS: Resp Syncy Virus RNA Qual PCR NEGATIVE (Negative); SARS COV2 PCR INHOUSE NEGATIVE (Negative)
[2025-05-11 17:00] LABS: Troponin-I High Sensitivity 16.7 ng/L (<3.5-35.0)
[2025-05-11 18:09] VITALS: BP 160/101; PULSE 60; RESP 14; TEMP 36.4; O2SAT 98
--- NOTE | 2025-05-11 18:58 | PC.NURSE ---
this rn assumed care of pt, pt resting in stretcher, no acute distress noted, repeat labs obtained at this time, nsr on tele
[2025-05-11 19:24] LABS: Troponin-I High Sensitivity 18.8 ng/L (<3.5-35.0)
[2025-05-11 19:50] VITALS: BP 147/88; PULSE 78; RESP 15; TEMP 36.7; O2SAT 98
== END 2025-05-11 19:50 | disposition home or self-care (01) ==
PROVIDERS: Registered Nurse Emergency; Emergency Provider Emergency Medicine; PCP Family Medicine
DX: R07.89 Other chest pain (principal); Z79.899 Other long term (current) drug therapy; Z03.818 Encounter for observation for suspected exposure to other biological agents ruled out; Z79.01 Long term (current) use of anticoagulants; Z86.718 Personal history of other venous thrombosis and embolism
CPT/HCPCS: 36415; 71046; 80053; 83735; 83880; 84484; 85025; 85610; 85730; 87637; 93005; 99283; 99285

== ENCOUNTER → 2025-05-11 15:25 | Outpatient (BNV) | payer OTHER, SELFPAY | PROVIDERS: Emergency Provider Emergency Medicine; PCP Family Medicine; Visit Provider Internal Medicine Cardiovascular Disease | DX: R00.1 Bradycardia, unspecified (principal) | CPT/HCPCS: 93010 ==

== ENCOUNTER → 2025-05-11 15:38 | Outpatient (BNV) | payer OTHER, SELFPAY | PROVIDERS: Emergency Provider Emergency Medicine; PCP Family Medicine; Visit Provider Nuclear Medicine | DX: R07.9 Chest pain, unspecified (principal) | CPT/HCPCS: 71046 ==

== ENCOUNTER 2025-07-15 10:09 | Outpatient (REF) | payer OTHER, SELFPAY ==
--- OUTSIDE RECORDS SUMMARY | 2025-07-15 11:48 | XMS_ITS | Encounter Summary ---
Author Organization [employer] Address [address] [facility] [address] 7[address] [place] [address] Care Team Providers Care Lump Roller Name Role Phone Veronica Gallardo MD Primary Care Provider [phone] Brien Vargas PharmD Unavailable [phone] Encounter Details Date Type Department Care Team (Late st Contact Info) Description 10/12/2022 Orders Only [facility] [address] [place], [place] [phone] Deya Barber LPN Social History Tobacco Use [...] Department Care Team (Latest Contact Info) Description 07/19/2025 10:30 AM EDT Anticoagulation - Warfarin Visit [facility] [address] [place] [address] [phone] 09/02/2025 11:00 AM EST Office Visit [facility] [address] [place] [address] [phone] Veronica Gallardo MD [address] [place] [address] [phone] 10/14/2025 10:00 AM EST Medication Management [facility] [address] [place] [address] [phone] Brien Vargas, PharmD [address] [place] [phone] documented as of this encounter Visit Diagnoses Not on filedocumented in this encounter Care Teams Lump Roller Relationship Specialty Start Date End Date Veronica Gallardo MD [address] [place] [address] [phone] PCP - General Family Medicine 08/09/12 Brien Vargas, PharmD [address] [place] [address] [phone] Pharmacist Internal Medicine 11/30/22 documented as of this encounter
--- OUTSIDE RECORDS SUMMARY | 2025-07-15 11:48 | XMS_ITS | Encounter Summary ---
Author Organization [employer] Address [address] [place] [address] Care Team Providers Care Manager Clinical Informatics Name Role Phone Veronica Gallardo MD Primary Care Provider [phone] Brien Vargas PharmD Unavailable [phone] Reason for Visit * Reason Comments Med Refill Encounter Details Date Type Department Care Team (Late st Contact Info) Description 10/12/2023 Refill [facility] [address] [place], [place] [phone] Veronica Gallardo MD [address] [place], [place] [phone] Back pain with left-sided radiculopathy Social History [...] 10:30 AM EDT Anticoagulation - Warfarin Visit [facility] [address] [place] [phone] 09/02/2025 11:00 AM EST Office Visit [address] [address] Veronica Gallardo MD [address] [place] [phone] 10/14/2025 10:00 AM EST Medication Management [address] [address] Brien Vargas PharmD [address] [place] [phone] documented as of this encounter Goals Goal Patient Goal Type Associated Problems Recent Progress Patient-Stated? Author Blood Pressure < 140/90 Blood Pressure 110/60( 025 9:09 AM EDT) No Brein Vargas, PharmD documented as of this encounter Visit Diagnoses Diagnosis Back pain with left-sided radiculopathy documented in this encounter Additional Health Concerns Assessment Noted Time PHQ-9 Depression Total Score: 0 03/24/20 23 11:18 AM EDT documented as of this encounter Care Teams Manager Clinical Informatics Relationship Specialty Start Date End Date Veronica Gallardo MD [address] [place] [phone] PCP - General Family Medicine 08/09/12 Brien Vargas, PharmD [address] [place] [address] Pharmacist Internal Medicine 11/30/22 documented as of this encounter
--- OUTSIDE RECORDS SUMMARY | 2025-07-15 11:48 | XMS_ITS | Encounter Summary ---
Author Organization [employer] Address [address] [facility] 7t [place] [address] Care Team Providers Care Cloth Beamer Name Role Phone Veronica Gallardo MD Primary Care Provider [phone] Brien Vargas PharmD Unavailable [phone] Encounter Details Date Type Department Care Team (Late st Contact Info) Description 09/09/2022 Orders Only [facility] [address] [place] [phone] Veronica Gallardo MD [address] [place] [phone] Social History Tobacco Use Types Packs/Day Years [...] 10:30 AM EDT Anticoagulation - Warfarin Visit [address] [phone] 09/02/2025 11:00 AM EST Office Visit [address] [phone] Veronica Gallardo MD [address] [place] [phone] 10/14/2025 10:00 AM EST Medication Management [facility] [address] [place] [address] Brien Vargas, PharmD [address] [place] [address] documented as of this encounter Visit Diagnoses Not on filedocumented in this encounter Care Teams Cloth Beamer Relationship Specialty Start Date End Date Veronica Gallardo MD [address] [place] [address] PCP - General Family Medicine 08/09/12 Brien Vargas, PharmD [address] [place] [address] Pharmacist Internal Medicine 11/30/22 documented as of this encounter
--- OUTSIDE RECORDS SUMMARY | 2025-07-15 11:48 | XMS_ITS | Clinical Summary ---
Author Organization [employer] Address [address] [place] [address] Care Team Providers Care Structural Engineer Name Role Phone Veronica Gallardo MD Primary Care Provider [phone] Brien Varags PharmD Unavailable [phone] Allergies Active Allergy Reactions Criticality Noted Date Comments Acetaminophen 03/23/2012 Ibuprofen 09/16/2022 Oxycodone 03/23/2012 Oxycodone-Acetaminophen 09/16/2022 Medications * This document contains information received from the source organization and may not represent a complete record from that organization. busPIRone (Buspar) 30 MG tablet TAKE 1 TABLET BY MOUTH TWICE DAILY IN THE MORNING AND IN THE EVENING 10/26/19 23 Active mirtazapine (Remeron) 45 MG tablet Take 45 mg by mouth at bedtime. 10/26/19 23 Active acetaminophen (Tylenol 8 Hour) 650 MG ER tabletIndications :Intercostal pain TAKE 1 TABLET BY MOUTH EVERY 8 HOURS NEEDED FOR MILD PAIN FOR UP TO 10 DAYS, DO NOT BREAK, CRUSH, DISSOLVE OR CHEW 30 tablet 04/04/20 23 Active naltrexone (Depade) 50 MG tablet TAKE 1 [...] by mouth at bedtime. 03/21/20 24 Active docusate sodium (Colace) 100 MG capsuleIndication s:Chronic idiopathic constipation TAKE 1 CAPSULE BY MOUTH TWICE DAILY 180 capsule 1 06/12/20 24 Active hydrOXYzine pamoate (Vistaril) 25 MG capsule Take 1 capsule (25 mg) by mouth every 6 (six) hours if needed for itching. 60 capsule 1 06/21/20 24 Active D3 Super Strength 50 MCG (2000 UT) capsule TAKE 1 CAPSULE BY MOUTH EVERY MORNING 90 capsule 3 10/04/20 24 Active atorvastatin (Lipitor) 10 MG tablet TAKE 1 TABLET BY MOUTH AT BEDTIME 90 tablet 3 04/02/20 25 Active warfarin (Coumadin) 1 MG tablet TAKE DIRECTED BY COUMADIN CLINIC 60 tablet 3 04/04/20 25 Active warfarin (Coumadin) 4 MG tablet TAKE 1 TABLET BY MOUTH EVERY DAY DIRECTED 30 tablet 3 04/29/20 25 Active phenytoin ER (Dilantin) 100 MG capsule TAKE 3 CAPSULES BY MOUTH EVERY DAY IN THE MORNING 270 capsule 1 05/06/20 25 Active hydrALAZINE (Apresoline) 50 MG tabletIndications :Hypertension, unspecified type TAKE 1 TABLET BY MOUTH THREE TIMES DAILY IN THE MORNING, EVENING, AND BEDTIME 270 tablet 1 05/06/20 25 Active gabapentin (Neurontin) 300 MG capsuleIndication s:Back pain with left-sided radiculopathy TAKE 1 CAPSULE BY MOUTH AT BEDTIME NEEDED FOR PAIN 30 capsule 1 05/30/20 25 Active clobetasol (Temovate) 0.05 % ointment Apply topically 2 times daily. 60 g 05/30/20 25 Active amLODIPine (Norvasc) 10 MG tabletIndications :Hypertension, unspecified type TAKE 1 TABLET BY MOUTH AT BEDTIME 90 tablet 3 06/26/20 25 Active loratadine (Claritin) 10 MG tablet TAKE 1 TABLET BY MOUTH EVERY MORNING FOR ALLERGIES 90 tablet 1 06/26/20 25 Active omeprazole (PriLOSEC) [address] capsuleIndication s:Intercostal pain TAKE 1 CAPSULE BY MOUTH TWICE DAILY IN THE MORNING AND AT BEDTIME 180 capsule 1 06/26/20 25 Active folic acid (Folvite) 1 MG tablet TAKE 1 TABLET BY MOUTH EVERY MORNING 90 tablet 1 06/26/20 25 Active thiamine (Vitamin B-1) 100 MG tablet TAKE 1 TABLET BY MOUTH EVERY MORNING 90 tablet 1 06/26/20 25 Active amLODIPine (Norvasc) 10 MG tabletIndications :Hypertension, unspecified type Take 1 tablet (10 mg) by mouth at bedtime. 90 tablet 3 04/25/20 025 Discontinued omeprazole (PriLOSEC) [address] capsuleIndication s:Intercostal pain TAKE 1 CAPSULE BY MOUTH TWICE DAILY IN THE MORNING AND AT BEDTIME 180 capsule 1 01/01/20 025 Discontinued thiamine (Vitamin B-1) 100 MG tablet TAKE 1 TABLET EVERY MORNING 90 tablet 1 01/01/20 025 Discontinued folic acid (Folvite) 1 MG tablet TAKE 1 TABLET EVERY MORNING 90 tablet 1 01/01/20 025 Discontinued loratadine (Claritin) 10 MG tablet TAKE 1 TABLET EVERY MORNING FOR ALLERGIES 90 tablet 1 01/01/20 025 Discontinued Active Problems Problem Noted Date Diagnosed [...] (12/12/2023 3:50 PM EST): - followed by [facility] urology - most recent renal US in Jun 2023 - continue surveillance Non-rheumatic aortic stenosis 06/03/2023 Assessment & Plan (06/03/2025 8:19 AM EDT): - most recent transthoracic echocardiogram on 11/28/24 showed mild to moderate aortic stenosis, and possible bicuspid aortic valve - continue following up with municipal bond trader Assessment & Plan (12/12/2023 3:47 PM EST): - most recent transthoracic echocardiogram on 09/05/23 showing mild-moderate aortic stenosis and trivial aortic regurgitation - continue following management recommendations by municipal bond trader Benign prostatic hyperplasia 03/28/2023 Overview (03/28/2023): -previously following with Urologist, last seen in 2017&2018 -will check PSA -will refer him back to Urologist for further evaluation Assessment & Plan (06/03/2025 8:25 AM EDT): - followed by [facility] urology, last seen in Jul 2024 - PSA has been normal level - continue terazosin and finasteride Assessment & Plan (06/21/2024 11:09 AM EDT): - followed by [facility] urology, last seen in Nov 2023 - PSA has been normal level - continue tamsulosin Assessment & Plan (12/12/2023 3:49 PM EST): - followed by [facility] urology, last seen in Nov 2023 - PSA has been normal level - continue tamsulosin Assessment & Plan (07/15/2023 6:41 AM EDT): - previously followed by urologist, last seen in 2017 - recently seen again by [facility] urology in May 2023 - CT in [...] EDT): -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 -Due to Coumadin use, Rifampin was contraindicated. Pt was started on Isoniazid, but the treatment had to be interrupted multiple times because of elevated LFT. Pt was drinking alcohol excessively during the treatment. -His case was presented to [facility], and pt had a direct observation therapy. 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 -Due to Coumadin use, Rifampin was contraindicated. Pt was started on Isoniazid, but the treatment had to be interrupted multiple times because of elevated LFT. Pt was drinking alcohol excessively during the treatment. -His case was presented to [facility], and pt had a direct observation therapy. -He finally completed 12 weeks of 900mg INH/900mg Rifapentine/ B6 50mg on 02/14/2019 History of syphilis 11/19/2022 History of shingles 11/19/2022 Major depression 11/09/2022 History of alcohol use disorder 11/09/2022 Assessment & Plan (11/19/2022 5:42 PM EST): - graduated from AUD clinic - continue naltrexone - pt is aware of recovery support resources at [facility] Alcohol use disorder, modera te, in early remission (CMS/HCC) 11/09/2022 Assessment & Plan (05/31/2025 12:21 AM EDT): - previously followed by Dr. Mckeon's AUD clinic - reconnected with AUD clinic and now followed by Dr. Julien - long-term maintenance stage, with occasional alcohol intake - continue naltrexone Assessment & Plan (12/12/2023 3:53 PM EST): [...] continue naltrexone Erythrocytosis 11/09/2022 Assessment & Plan (06/03/2025 8:25 AM EDT): - followed by pest locator, last seen in Jul 2024 - normal erythropoietin level - all other work-up has been normal Assessment & Plan (06/21/2024 11:09 AM EDT): - followed by pest locator, last seen in Jul 2023 - normal erythropoietin level - all other work-up has been normal Assessment & Plan (12/12/2023 3:53 PM EST): - followed by pest locator, last seen in Jul 2023 - normal erythropoietin level - all other work-up has been normal Assessment & Plan (07/15/2023 6:41 AM EDT): - evaluated by pest locator, last seen in January 2023 - normal erythropoietin level - all other work-up has been normal - US was ordered by pest locator; advised to complete evaluation Assessment & Plan (11/19/2022 5:28 PM EST): - evaluated by pest locator, last seen on 07/13/22 - normal erythropoietin level - all other work-up has been normal - most recent hematocrit 45 on 09/16/22 - US was ordered by pest locator; advised to complete evaluation intermission coordinator (current) use of anticoagulants 2021 Assessment & Plan (05/31/2025 12:19 AM EDT): - indication: recurrent / chronic DVT, question of hypercoagulable disorder (elevated homocysteine) -managed by [facility] -Most recent INR-->3.4 on 03/18/23 -Current medication and dose: Warfarin 28 mg weekly -Because of phenytoin use, direct oral anticoagulants are contraindicated. -Discussed about the risk and benefit of warfarin and the importance of judicious and responsible use -Pt no longer drinks alcohol excessively -Follow up per protocol Assessment & Plan (2023 10:50 AM EDT): - indication: recurrent / chronic DVT, question of hypercoagulable disorder (elevated homocysteine) -managed by [facility] -Most recent INR-->3.4 on 03/18/23 -Current medication [...] of hypercoagulable disorder (elevated homocysteine) -managed by [facility] -Most recent INR-->3.4 on 03/18/23 -Current medication [...] -Emphasized the importance of keeping appt with municipal bond trader; pt verbalized understanding Assessment & Plan (12/12/2023 3:07 PM EST): -Most recent TTE on 09/05/23 Normal EF, mild-mod aortic stenosis and trivial aortic regurgitation with possible bicuspid aortic valve. Ascending aorta at 42 mm -Continue working on risk factor management -Emphasized the importance of keeping appt with municipal bond trader; pt verbalized understanding Assessment & Plan (07/15/2023 6:32 AM EDT): - Echo on 03/31/22 EF 60-65% showed severely calcified aortic valve, stenosis and mild regurgitation (in HFCCA). - Emphasized the importance of keeping appt with municipal bond trader; pt verbalized understanding Assessment & Plan (11/09/2022 11:55 AM EST): - ECHO on 03/31/22 EF 60-65% showed severely calcified aortic valve, stenosis and mild regurgitation. -Pt was discharged from previous [facility] [employer] [facility] and will send to new [employer] [facility]. Alcohol use 11/16/2018 Stage 3 chronic kidney disease (CMS/HCC) 016 Assessment & Plan (06/03/2025 8:24 AM EDT): -Patient has missed several appointments with pillowcase turner, upcoming appt -09/10/16 Renal US wnl, no renal artery stenosis. -Hx elevated K with ACEI -Avoid NSAIDs / nephrotoxic drugs. -Use renal dosing. -Emphasized the importance of keeping appt Assessment & Plan (06/21/2024 11:09 AM EDT): -Referred back to pillowcase turner after last visit in Jul 2023 -Patient had an appointment in [facility], which was rescheduled for 01/09/24 -09/10/16 Renal US wnl, no renal artery stenosis. -Hx elevated K with ACEI -Avoid NSAIDs / nephrotoxic drugs. -Use renal dosing. -Emphasized the importance of keeping appt Assessment & Plan (12/12/2023 3:52 PM EST): -Referred back to pillowcase turner after last visit in Jul 2023 -Patient had an appointment in [facility], which was rescheduled for 01/09/24 -09/10/16 Renal US wnl, no renal artery stenosis. -Hx elevated K with ACEI -Avoid NSAIDs / nephrotoxic drugs. -Use renal dosing. -Emphasized the importance of keeping appt Assessment & Plan (07/15/2023 6:39 AM EDT): -Followed by pillowcase turner, last seen ? -Mildly elevated K. Monitor closely with ACEI. -09/10/16 Renal US wnl, no renal artery stenosis. -Avoid NSAIDs / nephrotoxic drugs. -Use renal dosing. -Emphasized the importance of keeping appt Assessment & Plan (03/24/2023 12:38 PM EDT): -Followed by pillowcase turner, last seen -Currently on lisinopril 5 mg daily. -Mildly elevated K. Monitor closely with ACEI. -Most recent INR-->3.0 on 11/09/22 -09/10/16 Renal US wnl, no renal artery stenosis. -Avoid NSAIDs / nephrotoxic drugs. -Use renal dosing. Assessment & Plan (11/19/2022 6:02 PM EST): -Followed by pillowcase turner, last seen -Currently on lisinopril 5 mg daily. -Mildly elevated K. Monitor closely with ACEI. -Most recent INR-->3.0 on 11/09/22 -09/10/16 Renal US wnl, no renal artery stenosis. -Avoid NSAIDs / nephrotoxic drugs. -Use renal dosing. Hypertension 09/02/2015 Assessment & Plan (06/03/2025 8:21 AM EDT): -Goal BP < 130/80 per ACC/AHA guideline -BP at goal -Comanaged with municipal bond trader, pharmD, and pillowcase turner -Continue working on life style modifications. -Continue amlodipine 10 mg daily -Continue hydralazine 50 mg tid -(Continue terazosin 5 mg daily for BPH with LUTS) --Treatment history: -Lisinopril was decreased to 2.5 mg daily after AAYUSH with hyperkalemia secondary to renal hypoperfusion in a setting of CKD in summer 2016. Completely discontinued by pillowcase turner -Most recent echo: 09/06/24 EF 60-65%. Mild - mod . Thoracic aortic aneurysm 4.2 cm Assessment & Plan (06/21/2024 11:09 AM EDT): -Goal BP < 140/90 per JNC-8, < 130/80 per ACC/AHA guideline -BP not at goal , ?adherence to medication -Comanaged with municipal bond trader, pharmD, and pillowcase turner -Continue working on life style modifications. -Continue amlodipine 10 mg daily -Continue hydralazine 50 mg tid --Treatment history: -Lisinopril was decreased to 2.5 mg daily after AAYUSH with hyperkalemia secondary to renal hypoperfusion in a setting of CKD in summer 2016. Completely discontinued by pillowcase turner -Most recent echo: 09/05/23 EF 60-65%. Mild . Thoracic aortic aneurysm 4.2 cm - Follow up in 3 mo or sooner if any problem arises Assessment & Plan (03/13/2024 10:47 AM EDT): -Goal BP < 140/90 per JNC-8, < 130/80 per ACC/AHA guideline -BP not at goal , ?adherence to medication -Comanaged with municipal bond trader, pharmD, and pillowcase turner -Continue working on life style modifications. -Continue amlodipine 10 mg daily -Continue hydralazine 50 mg tid --Treatment history: -Lisinopril was decreased to 2.5 mg daily after AAYUSH with hyperkalemia secondary to renal hypoperfusion in a setting of CKD in summer 2016. Completely discontinued by pillowcase turner -Most recent echo: 09/05/23 EF 60-65%. Mild . Thoracic aortic aneurysm 4.2 cm - Follow up in 3 mo or sooner if any problem arises Assessment & Plan (12/12/2023 3:05 PM EST): -Goal BP < 140/90 per JNC-8, < 130/80 per ACC/AHA guideline -BP not at goal , ?adherence to medication -Comanaged with municipal bond trader, pharmD, and pillowcase turner -Continue working on life style modifications. -Continue amlodipine 10 mg daily -Continue hydralazine 50 mg tid --Treatment history: -Lisinopril was decreased to 2.5 mg daily after AAYUSH with hyperkalemia secondary to renal hypoperfusion in a setting of CKD in summer 2016. Completely discontinued by pillowcase turner -Most recent echo: 09/05/23 EF 60-65%. Mild . Thoracic aortic aneurysm 4.2 cm - Follow up in 3 mo or sooner if any problem arises Assessment & Plan (07/15/2023 6:34 AM EDT): -Goal BP < 140/90 per JNC-8, < 130/80 per ACC/AHA guideline -BP not at goal , ?adherence to medication -Comanaged with municipal bond trader, pharmD, and pillowcase turner -Continue working on life style modifications. -Continue amlodipine 10 mg daily -Continue hydralazine 25 mg tid --Treatment history: -Lisinopril was decreased to 2.5 mg daily after AAYUSH with hyperkalemia secondary to renal hypoperfusion in a setting of CKD in summer 2016. Completely discontinued by pillowcase turner -Most recent echo: 03/31/22 EF 60-65%. Mild [...] We need to confirm this dosing with municipal bond trader. --Treatment history: -Lisinopril was decreased to 2.5 [...] We need to confirm this dosing with municipal bond trader. --Treatment history: -Lisinopril was decreased to 2.5 mg daily after AAYUSH with hyperkalemia secondary to renal hypoperfusion in a setting of CKD in summer 2016. -Most recent echo: 03/31/22 EF 60-65%. Mild . Thoracic aortic aneurysm 4.2 cm -Monitor K+ closely with Lisinopril -f/u in 2 months Ascending aortic aneurysm 12/19/2014 Assessment & Plan (06/03/2025 8:23 AM EDT): -Most recent echo on 08/27/24 ascending aorta 42 mm, stable -Echo on 09/05/23 ascending aorta 42 mm, stable -Echo on 03/31/22 thoracic aorta 4.2 cm -Echo in Jun 2021 thoracic aorta 4.2 cm -Echo on 02/27/19 thoracic aorta 4.1 cm -Echo on 03/01/18 Thoracic aorta 4.0 cm -Continue working on risk factor management Assessment & Plan (06/21/2024 11:08 AM EDT): [...] factor management Dyslipidemia 08/05/2014 Assessment & Plan (06/03/2025 8:22 AM EDT): Last Lipid Profile :04/15/25 - Atorvastatin 10 mg at bedtime, consider increasing the dose - Continue working on lifestyle modifications - Will update lipid profile with next lab order Assessment & Plan (06/21/2024 11:11 AM EDT): [...] EDT): Hx of elevated homocysteine. Evaluated by pest locator for hypercoagulable disorder. Evaluation is incomplete because he was on Coumadin. He was recommended indefinite warfarin treatment. Assessment & Plan (03/28/2023 1:04 PM EDT): Hx of elevated homocysteine. Evaluated by pest locator for hypercoagulable disorder. Evaluation is incomplete because he was on Coumadin. He was recommended indefinite warfarin treatment. Depressive disorder 11/24/2012 Assessment & Plan (12/12/2023 3:53 PM EST): - [facility] provider : Francisco Javier Forrest - Hx suicidal ideation - Lost his in 2014 due to pancreatic cancer, and his psychosocial health worsened - Continue buspirone and mirtazapine as prescribed by psychiatarist Assessment & Plan (2023 10:43 AM EDT): - [facility] provider : Francisco Javier Forrest - Hx suicidal ideation - Lost his in 2014 due to pancreatic cancer, and his psychosocial health worsened - Continue buspirone and mirtazapine as prescribed by psychiatarist Assessment & Plan (03/24/2023 12:38 PM EDT): - [facility] provider : Francisco Javier Forrest - Hx suicidal ideation - Lost his in 2014 due to pancreatic cancer, and his psychosocial health worsened - Continue buspirone and mirtazapine as prescribed by psychiatarist Assessment & Plan (11/19/2022 6:15 PM EST): - [facility] provider : Francisco Javier Andre Hx suicidal ideation - Lost his in 2014 due to pancreatic cancer, and his psychosocial health worsened - Continue buspirone and mirtazapine as prescribed by psychiatarist Vitamin D deficiency 11/24/2012 Deep venous thrombosis of lower extremity 2011 Assessment & Plan (05/31/2025 12:18 AM EDT): -Recurrent and chronic DVT, mostly left side -Chronic left common femoral vein -Continue warfarin -INR monitoring and warfarin dose adjustment are managed by [facility] team nurses -Most recent INR 2.3 on 06/18/23 -Continue following with [facility] team nurse for anticoagulation management Assessment & Plan (06/21/2024 11:08 AM EDT): -Recurrent and chronic DVT, mostly left side -Chronic left common femoral vein -Continue warfarin -INR monitoring and warfarin dose adjustment are managed by [facility] team nurses -Most recent INR 2.3 on 06/18/23 -Continue following with [facility] team nurse for anticoagulation management Assessment & Plan (03/13/2024 10:46 AM EDT): -Recurrent and chronic DVT, mostly left side -Chronic left common femoral vein -Continue warfarin -INR monitoring and warfarin dose adjustment are managed by [facility] team nurses -Most recent INR 2.3 on 06/18/23 -Continue following with [facility] team nurse for anticoagulation management Assessment & Plan (12/12/2023 3:04 PM EST): -Recurrent and chronic DVT, mostly left side -Chronic left common femoral vein -Continue warfarin -INR monitoring and warfarin dose adjustment are managed by [facility] team nurses -Most recent INR 2.3 on 06/18/23 -Continue following with [facility] team nurse for anticoagulation management Assessment & Plan (07/15/2023 6:37 AM EDT): -Recurrent and chronic DVT, mostly left side -Chronic left common femoral vein -Continue warfarin -INR monitoring and warfarin dose adjustment are managed by [facility] team nurses -Most recent INR 2.3 on 06/18/23 -Continue following with [facility] team nurse for anticoagulation management Assessment & Plan (03/24/2023 12:37 PM EDT): -Recurrent and chronic DVT, mostly left side -Chronic left common femoral vein -Continue warfarin -INR monitoring and warfarin dose adjustment are managed by [facility] team nurses -Most recent INR-->3.0 on 11/09/22 -Continue following with [facility] team nurse for anticoagulation management Assessment & Plan (11/19/2022 6:00 PM EST): -Recurrent and chronic DVT, mostly left side -Chronic left common femoral vein -Continue warfarin -INR monitoring and warfarin dose adjustment are managed by [facility] team nurses -Most recent INR-->3.0 on 11/09/22 -Continue following with [facility] team nurse for anticoagulation management Seizure disorder ([facility]/HCC) 03/23/2012 Assessment & Plan (05/31/2025 12:21 AM EDT): - Hx seizure many years [...] management for other conditions Assessment & Plan (06/21/2024 11:08 AM EDT): [...] Peripheral vascular disease 03/13/2012 Assessment & Plan (06/03/2025 8:18 AM EDT): - 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 - skin discoloration and inflammation are concerning for worsening venous stasis dermatitis - consider referring back to vascular specialist Assessment & Plan (12/12/2023 3:48 PM EST): - 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 - consider referring back to vascular specialist Encounters Date Type Department Care Team Description 06/26/2025 Refill [facility] [place] [address] Veronica Gallardo MD Hypertension, unspecified type; Intercostal pain 06/21/2025 10:30 AM EDT Clinical Support [facility] [place] [place] [address] Earline Quinn RN intermission coordinator (current) use of anticoagulants 06/21/2025 Travel 05/30/2025 9:00 AM EDT Office Visit [facility] [place] [place] [address] Veronica Gallardo MD Hypertension, unspecified type (Primary Dx); Dyslipidemia; Non-rheumatic aortic stenosis; Aneurysm of ascending aorta without rupture (CMS/HCC); Erythrocytosis; Stage 3 chronic kidney disease, unspecified whether stage 3a or 3b CKD (CMS/HCC); Benign prostatic hyperplasia, unspecified whether lower urinary tract symptoms present; Alcohol use disorder, moderate, in early remission (CMS/HCC); Alcohol use; Major depressive disorder, remission status unspecified, unspecified whether recurrent; Seizure disorder (CMS/HCC); Chronic deep vein thrombosis (DVT) of femoral vein of left lower extremity (CMS/HCC); USP (current) use of anticoagulants; Peripheral vascular disease (CMS/HCC) 05/30/2025 Travel 05/30/2025 Refill [facility] [place] [address] Veronica Gallardo MD Back pain with left-sided radiculopathy 05/29/2025 Telephone [facility] [place] [address] Veronica Gallardo MD chart prep 05/24/2025 10:00 AM EDT Clinical Support [facility] [place] [address] Earline Quinn RN intermission coordinator (current) use of anticoagulants 05/24/2025 Travel 05/11/2025 Orders Only GENERIC EXTERNAL DATA DEPARTMENT Provider, Generic External Data 05/06/2025 Telephone [facility] MEDICINE [address] [place] [address] Veronica Gallardo MD 05/05/2025 Refill [facility] MEDICINE [address] [place] [address] Veronica Gallardo MD Hypertension, unspecified type 05/03/2025 10:00 AM EDT Office Visit [facility] [address] [place] [address] Kilo Julien MD Tinea cruris (Primary Dx) 05/03/2025 Travel 04/27/2025 Refill [facility] [facility] [address] [place] [address] Veronica Gallardo MD 04/26/2025 10:30 AM EDT Anticoagulation - Warfarin Visit [facility] [address] [place] [address] Sarah Prieto RN USP (current) use of anticoagulants 04/26/2025 Travel 04/15/2025 Orders Only GENERIC EXTERNAL DATA DEPARTMENT Provider, Generic External Data from Last 3 Months Immunizations Immunization Administration Dates Next Due Hep A, Adult [...] Packs/Day Years Used Date Smoking Tobacco: Never Passive Smoke Exposure: Never Smokeless Tobacco: Never Tobacco Cessation:Counseling Given: Not Answered Alcohol Answer Date Recorded How often do you have a drink containing alcohol ? 2 05/30/2025 How many drinks containing a lcohol do you have on a typical day when you are drinking? 1 05/30/2025 How often do you have six or more drinks on one occasion? 1 05/30/2025 Depression Answer Date Recorded Patient Health Questionnaire-9 Score 0 05/30/2025 Patient Health Questionnaire-9 Score 0 05/30/2025 Last PHQ-9: Questionnaire Data Not on file 0 05/30/2025 Housing Stability Answer Date Recorded What is your housing situation today? I have primo thomas 05/30/[address] you li ve. Do you have problems with any of the following? None of the above 05/30/2025 Food Insecurity Answer Date Recorded Within the past 12 months, y ou worried that your food would run out before you got money to buy more: Never True 05/30/2025 Within the past 12 months,th e food you bought just didn't last and you didn't have enough money to get more: Never True Transportation Answer Date Recorded In the past 12 months, has l ack of transportation kept you from medical appts, meetings, work or from getting things needed for daily living? No 05/30/2025 Utilities Answer Date Recorded In the past 12 months, has t he electric, gas, oil or water company threatened to shut off services in your home? No 05/30/2025 Depression Answer Date Recorded Patient Health Questionnaire-2 Score 0 05/30/2025 Internet Access Answer Date Recorded Internet Access Q1 Yes 05/30/2025 Internet Access Q2 Not on file 05/30/2025 Sex and Gender Information Value Date Recorded Sex Assigned at Male 08/09/2022 10:14 AM EDT Legal Sex Male 10:14 AM EDT Gender Identity Male 08/09/2022 10:14 AM EDT Sexual Orientation Straight 08/09/2022 10 :14 AM EDT Last Filed Vital Signs Vital Sign Reading Time Taken Comments Blood Pressure 110/60 05/30/2025 9:09 AM EDT Pulse 57 05/30/2025 9:09 AM EDT Temperature 36.6 C (97.8 F) 05/30/2025 9:09 AM EDT Respiratory Rate 20 05/30/2025 9:09 AM EDT Oxygen Saturation 96% 05/03/2025 9:54 AM EDT Inhaled Oxygen Concentration - - Weight 73.8 kg (162 lb 9.6 oz) 05/30/2025 9:09 A M EDT Height 175.3 cm (5' 9 ) 05/30/2025 9:09 AM EDT Body Mass Index 24.01 05/30/2025 9:09 AM EDT Plan of Treatment Upcoming Encounters Date Type Department Care Team (Latest Contact Info) Description 07/19/2025 10:30 AM EDT Anticoagulation - Warfarin Visit [address] [address] 09/02/2025 11:00 AM EST Office Visit [address] [address] Veronica Gallardo MD [address] [place] [phone] 10/14/2025 10:00 AM EST Medication Management [address] [address] Brien Vargas, PharmD [address] [place] [phone] Health Maintenance Due Date Last Done Comments CT Colonography 1955 Colonoscopy 1955 Colorectal Cancer Screening 1955 FIT DNA/Cologuard 1955 FIT 1955 FOBT 1955 Sigmoidoscopy 1955 COVID-19 Vaccine ( season) 2025 10/15/2024, 03/13/2024, 09/25/2021, Additional history exists Influenza Vaccine (#1) 2025 , 06/29/2023, 07/28/2021, Additional history exists Alcohol/Substance Use Screening 05/30/2026 05/30/2025 Depression Screening 05/30/2026 05/30/2025, 05/30/20 SDOH Screening 05/30/2026 05/30/2025 Tobacco Screening 05/30/2026 05/30/2025 DTaP/Tdap/Td Vaccines (3 - Td or Tdap) 02/15/2027 02/15/2017, 11/24/2012, 05/25/2010, Additional history exists Lipid Panel 04/15/2030 04/15/2025, 06/10, 03/24/2023, Additional history exists Zoster Vaccines Completed 12/03/2019, 09/10, 12/24/2016 Pneumococcal Vaccine: 50+ Years Completed 05/31/2022, 12/17/2019, 08/06/2014, Additional history exists RSV Patients and Patients Aged 60 years or older Completed 09/14/2023 Hepatitis A Vaccines Aged Out 10/15/2024, 03/13/20 24 No longer eligible based on patient's age to complete this topic Hepatitis C Screening Completed 04/15/2025 , 06/21/2024, 03/24/2023, Additional history exists HIB Vaccines Aged Out No longer eligi [...] patient's age to complete this topic Meningococcal B Vaccine Aged Out No l onger eligible based on patient's age to complete [...] Pressure 110/60( 025 9:09 AM EDT) No Brien Vargas, Efrain Procedures Procedure Name Priority Date/Time Associated Diagnosis Comments POCT INR Routine 06/21/2025 10:48 AM EDT USP (current) use of anticoagulants POCT INR Routine 05/24/2025 9:37 AM EDT USP (current) use of anticoagulants HIGH SENSITIVITY TROPONIN I Routine 05/11/2025 6:58 PM EDT XR CHEST 2 VIEWS Routine 05/11/2025 5:00 PM EDT POCT INR Routine 04/26/2025 10:37 AM EDT USP (current) use of anticoagulants PSA, TOTAL Routine 04/15/2025 9:10 AM EDT COMPREHENSIVE METABOLIC PANEL Routine 04/15/2025 9:10 AM EDT CBC WITH AUTO DIFFERENTIAL Routine 04/15/2025 9:10 AM EDT HEPATITIS B SURFACE ANTIGEN, EIA Routine 04/15/2025 9:10 AM EDT Hypertension, unspecified type HIV 1/2 ANTIGEN/ANTIBODY, FOURTH GENERATION W/RFL Routine 04/15/2025 9:10 AM EDT Hypertension, unspecified type HEPATITIS C AB W/REFL TO HCV RNA, QN, PCR Routine 04/15/2025 9:10 AM EDT Screening for diabetes mellitus SYPHILIS SCREEN Routine 04/15/2025 9:10 AM EDT Screening for diabetes mellitus VITAMIN B12/FOLATE, SERUM PANEL Routine 04/15/2025 9:10 AM EDT Erythrocytosis Alcohol use disorder, moderate, in early remission (CMS/HCC) VITAMIN D,25-OH,TOTAL,IA Routine 04/15/2025 9:10 AM EDT Vitamin D deficiency LIPID PANEL WITH REFLEX TO DIRECT LDL Routine 04/15/2025 9:10 AM EDT Dyslipidemia HEMOGLOBIN A1C Routine 04/15/2025 9:10 AM EDT Screening for diabetes mellitus TSH W/REFLEX TO FT4 Routine 04/15/2025 9 :10 AM EDT Hypertension, unspecified type CHLAMYDIA/TRICHOMONAS /NEISSERIA GONORRHOEAE, PCR, URINE Routine 04/15/2025 9:07 AM EDT from Last 3 Months Results * POCT INR manually resulted (06/21/2025 10:48 AM EDT) Only the most recent of3 resultswithin the time period is included. Pathologist [facility] Protime INR 2.4 2 - 3 Blood Capillary blood specimen / Unknown 06/21/2025 10:48 AM EDT Veronica Gallardo MD POINT OF CARE TEST ENTER/EDIT OR DERABLES Final Result * High Sensitivity Troponin I (05/11/2025 6:58 PM EDT) Pathologist [facility] TROPONIN I HIGH SENSITIVITY 18.8 <3.5 - 35.0 ng/L [facility] Comment:The [employer] high sens itivity Troponin-I results should beused in conjunction with other diagnostic information suchas ECG, clinical observations and information, and patientsymptoms to aid in the diagnosis of MD. 05/11/2025 6:58 PM EDT 05/11/2025 7:00 PM EDT us Generic External Data Provider LAB BLOOD ORDERAB LES Final Result [facility] [address] [place] [address] [phone] * XR Chest 2 Views (05/11/2025 5:00 PM EDT) Anatomical Region Laterality Modality Chest Radiographic Svitlana ging 05/11/2025 5:00 PM EDT Narrative 05/11/2025 5:02 PM EDT [place] [address] XRay Report Signed Patient: Chriss Munoz MR#: [id number] : 1955 Acct:[id number] Age/Sex: 69 / M ADM Date: 05/11/25 Loc: .ED Attending Dr: Ordering Physician: Margret Lomeli NP Date of Service: 05/11/25 Procedure(s): XR chest 2V Accession Number(s): [id number] cc: Veronica Gallardo MD; Margret Lomeli NP CLINICAL HISTORY: chest pain 2 view chest x-ray Comparison: CR/SR - XR CHEST 1V - 09/07/24 14:06 EST Findings: The lungs are clear. Heart size is normal. No acute fracture. IMPRESSION: 1. No acute findings. This document has been electronically signed by: Matty Mendenhall MD on 05/11/2025 17:00:37 Dictated By: Matty Mendenhall MD Signed By: <Electronically signed by Matty Mendenhall MD in OV> 05/11/25 170 DD/ 1700 TD/TT: 05/11/25 1700 Rn Obgyn: Procedure Note Donotdukeinterpreter, Image - 05/11/2025 [place] [id number] XRay Report Signed Patient: Kristina MunozR#: [id number] : 1955cct:[id number] Age/Sex: 69 / MADM Date: 05/11/25 Loc: HO.ED Attending Dr: Ordering Physician: Margret Lomeli NP Date of Service: 05/11/25 Procedure(s): XR chest 2V Accession Number(s): [id number] cc: Veronica Gallardo MD; Margret Lomeli NP CLINICAL HISTORY: chest pain 2 view chest x-ray Comparison: CR/SR - XR CHEST 1V - 09/07/24 14:06 EST Findings: The lungs are clear. Heart size is normal. No acute fracture. IMPRESSION: 1. No acute findings. This document has been electronically signed by: Matty Mendenhall MD on 05/11/2025 17:00:37 Dictated By: Matty Mendenhall MD Signed By: <Electronically signed by Matty Mendenhall MD in OV> 05/11/251700 DD/ 99 TD/TT: 05/11/251699 Rn Obgyn: [facility] External Provider IMG XR PROCEDURES Edited Result - Final * Syphilis Screen (04/15/2025 9:10 AM EDT) Syphilis Screen Nonreactive Nonreactive [facility] 04/15/2025 9:10 AM EDT 04/15/2025 6:02 PM EDT Veronica Gallardo MD LAB BLOOD ORDERABLES Final Resul t [facility] [address] [place] [phone] * Vitamin D, 25-Hydroxy, Total, Immunoassay (04/15/2025 9:10 AM EDT) Vitamin D 25-OH Total 42.5 >30 ng/mL [facility] Comment: Health Based Reference Values*< 20 ng/mL Udeyqjwuu03-33 ng/mL Insufficient> 30 ng/mL Sufficient*Ken COLEMAN. N Engl J Med. 2007;357:266-280There is no well-established upper level of normal vitamin Dlevels. Some laboratories use 50 ng/mL as an upper limit ofnormal. However, toxicity is patient-dependent and may occurat any level. Careful correlation with the patient'spresentation is necessary and, if there is concern forvitamin D toxicity, treatment should be consideredirrespective of the serum level.Care must be taken in interpreting Vitamin D results fromdifferent laboratories and methodologies. Published datademonstrated that results from patients undergoinghemodialysis may show a negative bias when tested withvarious automated 25-OH vitamin D assays when compared toLC-MS/MS.When testing samples from patients whose predominant form ofVitamin D is Vitamin D2, such as patients receiving VitaminD2 supplementation, results that are subtherapeutic shouldbe confirmed with another method such as LC-MS/MS. Blood Venous blood specimen / Unknown 04/15/2025 9:10 AM EDT 04/15/2025 11:17 AM EDT Veronica Gallardo MD LAB BLOOD ORDERABLES Final Resul t [facility] [address] [place] [phone] * Vitamin B12 (Cobalamin) and Folate Panel, Serum (04/15/2025 9:10 AM EDT) Vitamin B12 224 200 - 900 pg/mL [facility] Comment:NORMAL 200-900 PG/ML INDETERMINATE 160-199 PG/ML DEFICIENT < 160 PG/ML Folate 12.8 > or = 4.0 ng/mL [facility] Comment:Reference Values:> o r = 4.0 ng/mL< 4.0 ng/mL suggests folate deficiency Methotrexate, aminopterin and folinic acid(leucovorin) are chemotherapeutic agents whose molecularstructures are similar to folate; therefore, the Architectfolate assay cannot be used for patients using these drugs. Blood 04/15/2025 9:10 AM EDT 04/15/2025 11:17 AM EDT Veronica Gallardo MD LAB BLOOD ORDERABLES Final Resul t Performing Organization Address City/[facility]/ZIP Co de Phone Number [facility] [address] [place] [phone] * TSH with Reflex to Free T4 (04/15/2025 9:10 AM EDT) TSH reflex Free T4 2.74 0.32 - 4.0 uIU/mL [facility] Blood 04/15/2025 9:10 AM EDT 04/15/2025 11:17 AM EDT Veronica Gallardo MD LAB BLOOD ORDERABLES Final Resul t Performing Organization Address [facility] Co de Phone Number [facility] [address] [place] [phone] * Lipid Panel with Reflex to Direct LDL (04/15/2025 9:10 AM EDT) Triglycerides 107 <150 mg/dL [facility] Comment:Desirable Triglyceri de: less than 150 mg/dLBorderline High Triglyceride 150-199 mg/dLHigh Triglyceride: 200-499 mg/dLVery High Triglyceride: greater than or equal to 5OO mg/dL Cholesterol 168 <200 mg/dL [facility] Comment:Desirable Cholestero l: less than 200 mg/dLBorderline High Cholesterol: 200-239 mg/dLHigh Cholesterol: greater than 239 mg/dL LDL Cholesterol Calculated 91 <100 mg/dL [facility] Comment:Desirable LDL: less than 100 mg/dLNear Optimal/Above Optimal LDL: 110- 129 mg/dLBorderline High LDL: 130-159 mg/dLHigh LDL: 160-189 mg/dLVery High LDL: greater than or equal to 190 mg/dL HDL Cholesterol 56 >40 mg/dL [facility] Comment:Desirable HDL: great er than 40 mg/dL Note: This HDL assay may give artificially low results in patients with liver disease. Blood 04/15/2025 9:10 AM EDT 04/15/2025 11:17 AM EDT us Veronica Gallardo MD LAB BLOOD ORDERABLES Final Resul t [facility] [address] [place], [place] [phone] * (ABNORMAL) CBC auto differential (04/15/2025 9:10 AM EDT) White Blood Count 3.2(L) 4.8 - 10.8 X10*3/uL [facility] Red Blood Count 4.90 4.60 - 5.80 X10*6/uL [facility] Hemoglobin 16.3 14.0 - 18.0 g/dl [facility] Hematocrit 48.1 42.0 - 52.0 % [facility] Mean Corpuscular Volume 98.2(H) 80.0 - 98.0 fL [facility] Mean Corpuscular Hemoglobin 33.3(H) 27.0 - 33.0 pg [facility] Mean Corpuscular HGB Conc 33.9 31.0 - 36.0 g/dl [facility] Red Cell Distribution Width 12.7 11.0 - 16.0 % [facility] Platelet Count 107(L) 160 - 400 X10*3/uL [facility] Mean Platelet Volume 10.7 9.4 - 12.4 fL [facility] Neutrophils Percent Auto 65.7 45 - 73 % [facility] Imm Gran Pct Auto 0.3 0.0 - 0.4 % [facility] Lymphocytes Percent Auto 19.2(L) 20 - 40 % [facility] Monocytes Percent Auto 8.5 2 - 11 % [facility] Eosinophils Percent Auto 5.7(H) 0 - 4 % [facility] Basophils Percent Auto 0.6 0 - 2 % [facility] NRBC Pct Auto 0.0 0.0 - 0.2 /100WBC [facility] Neutrophils Absolute Auto 2.1 2.0 - 8.3 x10*3/uL [facility] Imm Gran Abs Auto 0.01 0.00 - 0.03 X10*3/uL [facility] Lymphocytes Absolute Auto 0.6(L) 1.2 - 4.9 X10*3/uL [facility] Monocytes Absolute Auto 0.3 0.1 - 1.2 X10*3/uL [facility] Eosinophils Absolute Auto 0.2 0.0 - 0.4 X10*3/uL [facility] Basophils Absolute Auto 0.0 0.0 - 0.2 X10*3/uL [facility] NRBC Abs Auto 0.000 0.0 - 0.012 X10*3/uL [facility] 04/15/2025 9:10 AM EDT 04/15/2025 11:17 AM EDT Generic External Data Provider LAB BLOOD ORDERAB LES Final Result Performing Organization Address [facility] de Phone Number [facility] [address] [place] [phone] * Hepatitis C Antibody with Reflex to HCV, RNA, Quantitative, Real-Time PCR (04/15/2025 9:10 AM EDT) Hepatitis C Antibody Nonreactive Nonreactive [facility] Comment:Antibodies to HCV no t detected; does not exclude early acuteHCV infection. Venous blood specimen / Unknown 04/15/2025 9:10 AM EDT 04/15/2025 11:17 AM EDT us Veronica Gallardo MD LAB BLOOD ORDERABLES Final Resul t Performing Organization Address [facility] Co de Phone Number [facility] [address] [place] [address] [phone] * Hepatitis B surface antigen, EIA (04/15/2025 9:10 AM EDT) Hepatitis B Surface Ag Negative Negative [facility] Venous blood specimen / Unknown 04/15/2025 9:10 AM EDT 04/15/2025 11:17 AM EDT us Veronica Gallardo MD LAB BLOOD ORDERABLES Final Resul t Performing Organization Address City/[facility]/ZIP Co de Phone Number [facility] [address] [place] [phone] * HIV-1/2 Antigen and Antibodies, Fourth Generation, with Reflexes (04/15/2025 9:10 AM EDT) HIV AB/AG Nonreactive Nonreactive [facility] Comment:HIV-1 p24 Ag and/or HIV-1/HIV-2 Ab not detected.A test result that is nonreactive does not exclude thepossibility of exposure to or infection with HIV-1 and/orHIV-2. Nonreactive results in this assay for individualswith prior exposure to HIV-1 and/or HIV-2 may be due toantigen and antibody levels that are below the limit ofdetection of this assay.The [employer] HIV Ag/Ab Combo assay result andsupplemental assay results should be interpreted inconjunction with the patient's clinical presentation,history and other laboratory results. If the results areinconsistent with clinical evidence, additional testing issuggested to confirm the result. Venous blood specimen / Unknown 04/15/2025 9:10 AM EDT 04/15/2025 11:17 AM EDT us Veronica Gallardo MD LAB BLOOD ORDERABLES Final Resul t Performing Organization Address City/[facility]/ZIP Co de Phone Number [facility] [address] [place] [phone] * PSA,Total (04/15/2025 9:10 AM EDT) Prostate Specific Antigen 2.76 <0.05 - 4.0 ng/mL [facility] Comment:PSA methodology: Abb yaakov Alinity i ChemiluminescentMicroparticle Immunoassay (CMIA) 04/15/2025 9:10 AM EDT 04/15/2025 11:17 AM EDT us Generic External Data Provider LAB BLOOD ORDERAB LES Final Result Performing Organization Address [facility]/ZIP Co de Phone Number [facility] [address] [place] [phone] * Hemoglobin A1c (04/15/2025 9:10 AM EDT) Hemoglobin A1c 5.3 <6.0 % [facility] Comment:Hemoglobin A1C Refer ence Range Adults: 4.8 - 6.0 % Non diabetic: < 6.0 % Goal: < 7.0 %Additional Action Suggested: > 8.0 %Note: Hemoglobin A1c results are invalid for patients with abnormal amounts of HbF. Blood transfusions may impact the HbA1c concentration in the patient sample. Estimated Average Glucose 105 mg/dL [facility] Comment:eAG = Estimated ave rage glucose which is %A1C expressed asaverage glucose, using the formula of the A4L-BfyupyrXpityli Glucose study (ADAG), Diabetes Care, Vol.31,#8,May. 2007 Blood Venous blood specimen / Unknown 04/15/2025 9:10 AM EDT 04/15/2025 11:17 AM EDT us Veronica Gallardo MD LAB BLOOD ORDERABLES Final Resul t Performing Organization Address [facility]/ZIP Co de Phone Number [facility] [address] [place] [phone] * (ABNORMAL) Comprehensive Metabolic Panel (04/15/2025 9:10 AM EDT) Sodium 142 135 - 145 mmol/L [facility] Potassium 4.3 3.3 - 5.1 mmol/L [facility] Chloride 112(H) 96 - 108 mmol/L [facility] Carbon Dioxide 24 22 - 29 mmol/L [facility] Anion Gap 10(L) 12 - 20 [facility] Urea Nitrogen (BUN) 28(H) 9 - 16 mg/dL [facility] Creatinine, Serum 1.63(H) 0.5 - 1.4 mg/dL [facility] Estimated Glomerular Filt Rate 42 [facility] Comment:Chronic Kidney Disea se: Estimated GFR < 60 mL/min/[id number] Kidney Disease: Estimated GFR < 15 mL/min/1.73m2 Glucose 100 60 - 115 mg/dL [facility] Calcium 9.4 8.4 - 10.2 mg/dL [facility] Bilirubin, Total 0.5 0.0 - 1.0 mg/dL [facility] Aspartate Amino Transferase 20 5 - 37 U/L [facility] Alanine Aminotransferase 26 0 - 40 U/L [facility] Total Protein 6.8 6.5 - 8.0 g/dL [facility] Albumin Level 4.1 3.5 - 5.0 g/dL [facility] Alkaline Phosphatase 64 39 - 117 U/L [facility] 04/15/2025 9:10 AM EDT 04/15/2025 11:17 AM EDT us Generic External Data Provider LAB BLOOD ORDERAB LES Final Result [facility] [address] [place] [phone] * Chlamydia/Trichomonas/Neisseria gonorrhoeae, PCR, Urine (04/15/2025 9:07 AM EDT) CT PCR, Urine NOT DETECTED Not Detect. [facility] Comment:A not detected test result does not exclude the possibilityof infection because test results can be affected byimproper specimen collection, concurrent antibiotic therapy,or the number of organisms in the specimen which may bebelow the sensitivity of the test. As with many diagnostictests, results from the Xpert CT/NG assay should beinterpreted in conjunction with other laboratory andclinical data available to the clinician.The Xpert CT/NG assay should not be used for the evaluationof suspected sexual abuse or for other medico-legalindications. Additional testing is recommended in anycircumstance when false positive or false negative resultscould lead to adverse medical, social or psychologicalconsequences. NG PCR, Urine NOT DETECTED Not Detect. [facility] Comment:A not detected test result does not exclude the possibilityof infection because test results can be affected byimproper specimen collection, concurrent antibiotic therapy,or the number of organisms in the specimen which may bebelow the sensitivity of the test. As with many diagnostictests, results from the Xpert CT/NG assay should beinterpreted in conjunction with other laboratory andclinical data available to the clinician.The Xpert CT/NG assay should not be used for the evaluationof suspected sexual abuse or for other medico-legalindications. Additional testing is recommended in anycircumstance when false positive or false negative resultscould lead to adverse medical, social or psychologicalconsequences. 04/15/2025 9:07 AM EDT 04/15/2025 11:17 AM EDT us Veronica Gallardo MD LAB URINE ORDERABLES Final Resul t [facility] [address] [place] [phone] from Last 3 Months Insurance [facility] [employer] (O D-SNP) JOSE TAPIA [id number] Care Teams Structural Engineer Relationship Specialty Start Date End Date Veronica Gallardo MD [address] [place] [address] PCP - General Family Medicine 08/09/12 Brien Vargas, PharmD [address] [place] [phone] Pharmacist Internal Medicine 11/30/22
--- OUTSIDE RECORDS SUMMARY | 2025-07-15 11:48 | XMS_ITS | Encounter Summary ---
Author Organization [employer] Address [address] [facility] [address] 7t [place] [address] Care Team Providers Care Machine Staker Name Role Phone Veronica Gallardo MD Primary Care Provider [phone] Brien Vargas PharmD Unavailable [phone] Encounter Details Date Type Department Care Team (Late st Contact Info) Description 11/04/2023 Orders Only [facility] [address] [place], [place] [phone] Veronica Gallardo MD [address] [place], [place] [phone] Alcohol use disorder, moderate, in early remission [...] 10:30 AM EDT Anticoagulation - Warfarin Visit [address] [address] 09/02/2025 11:00 AM EST Office Visit [address] [address] Veronica Gallardo MD [address] [place] [address] 10/14/2025 10:00 AM EST Medication Management [address] [address] Brien Vargas, PharmD [address] [place] [address] documented as of this encounter Goals Goal Patient Goal Type Associated Problems Recent Progress Patient-Stated? Author Blood Pressure < 140/90 Blood Pressure 110/60( 025 9:09 AM EDT) No Brien Vargas, PharmD documented as of this encounter Visit Diagnoses Diagnosis Alcohol use disorder, moderate, in early remission (CMS/HCC) (HCC)- Primary documented in this encounter Additional Health Concerns Assessment Noted Time PHQ-9 Depression Total Score: 0 03/24/20 23 11:18 AM EDT documented as of this encounter Care Teams Machine Staker Relationship Specialty Start Date End Date Veronica Gallardo MD [address] [place] [address] PCP - General Family Medicine 08/09/12 Brien Vargas PharmD [address] [place] [address] Pharmacist Internal Medicine 11/30/22 documented as of this encounter
--- OUTSIDE RECORDS SUMMARY | 2025-07-15 11:48 | XMS_ITS | Encounter Summary ---
Author Organization [employer] Address [address] [facility] [address] 7t [place] [address] Care Team Providers Care Executive Relations Specialist Name Role Phone Veronica Gallardo MD Primary Care Provider [phone] Brien Vargas PharmD Unavailable [phone] Reason for Visit * Reason Comments Med Refill Encounter Details Date Type Department Care Team (Late st Contact Info) Description 08/14/2023 Refill [facility] [address] [place], [place] [phone] Brien Vargas, PharmD [address] [place], [place] [phone] Essential hypertension Social History Tobacco Use Types [...] t he electric, gas, oil or water [employer] threatened to shut off services in your [...] Vargas PharmD - 08/23/2023 11:57 AM EST [facility] will send 1 month fill of hydralazine 25 mg PO TID. Patient rescheduled last cardiology and nephrology visits. Needs to keep upcoming CDTM visit 09/09/2023. documented in this encounter Plan of Treatment Upcoming Encounters Date Type Department Care Team (Latest Contact Info) Description 07/19/2025 10:30 AM EDT Anticoagulation - Warfarin Visit [facility] [address] [place] [address] 09/02/2025 11:00 AM EST Office Visit [facility] [address] [place] [address] Veronica Gallardo MD [address] [place] [address] 10/14/2025 10:00 AM EST Medication Management [facility] [address] [place] [address] Brien Vargas PharmD [address] [place] [address] documented as of this encounter Goals Goal Patient Goal Type Associated Problems Recent Progress Patient-Stated? Author Blood Pressure < 140/90 Blood Pressure 110/60( 025 9:09 AM EDT) No Brien Vargas PharmD documented as of this encounter Visit Diagnoses Diagnosis Essential hypertension Unspecified essential hypertension documented in this encounter Additional Health Concerns Assessment Noted Time PHQ-9 Depression Total Score: 0 03/24/20 11:18 AM EDT documented as of this encounter Care Teams Executive Relations Specialist Relationship Specialty Start Date End Date Veronica Gallardo MD 230 [place] [address] PCP - General Family Medicine 08/09/12 Brien Vargas, PallaviD [address] [place] [address] Pharmacist Internal Medicine 11/30/22 documented as of this encounter
--- OUTSIDE RECORDS SUMMARY | 2025-07-15 11:48 | XMS_ITS | Encounter Summary ---
Author Organization [employer] Address [address] [facility] [address] 7t [place] [address] Care Team Providers Care Speaker Mounter Name Role Phone Veronica Gallardo MD Primary Care Provider [phone] Brien Vargas PharmD Unavailable [phone] Encounter Details Date Type Department Care Team (Late st Contact Info) Description 04/25/2024 Orders Only [facility] 230 [place], [place] [phone] Veronica Gallardo MD [address] [place], [place] [phone] Hypertension, unspecified type Social History Tobacco Use [...] the past 12 months, has t he [employer], gas, oil or water company threatened to [...] 10:30 AM EDT Anticoagulation - Warfarin Visit [address] [address] 09/02/2025 11:00 AM EST Office Visit [address] [address] Veronica Gallardo MD [address] [place] [address] 10/14/2025 10:00 AM EST Medication Management [address] [address] Brien Vargas, PharmD [address] [place] [address] documented as of this encounter Goals Goal Patient Goal Type Associated Problems Recent Progress Patient-Stated? Author Blood Pressure < 140/90 Blood Pressure 110/60( 025 9:09 AM EDT) No Brien Vargas, PharmD documented as of this encounter Procedures Procedure Name Priority Date/Time Associated Diagnosis Comments XR CHEST 1 VIEW Routine 05/03/2024 9:30 AM EDT documented in this encounter Results * XR Chest 1 View (05/03/2024 9:30 AM EDT) Anatomical Region Laterality Modality Chest Radiographic Svitlana ging 05/03/2024 9:30 AM EDT Narrative 05/03/2024 10:18 AM EDT [facility] [address] [place] [address] XRay Report Signed Patient: Chriss Munoz MR#: [id number] : 1955 Acct:[id number] Age/Sex: 68 / M ADM Date: 05/03/24 Loc: HO.ED Attending Dr: Ordering Physician: Flo Fleming MD Date of Service: 05/03/24 Procedure(s): XR chest 1V Accession Number(s): [id number] cc: Flo Fleming MD; Veronica Galladro MD EXAMINATION: XR CHEST CLINICAL INFORMATION: Chest [...] in OV> 05/03/24 1015 DD/ 0930 TD/TT: Training And Development Specialist: PD Procedure Note Donotuseinterpreter, Image - 05/03/[address] [address] XRay Report Signed Patient: Kristina MunozR#: [id number] : [id number]:[id number] Age/Sex: 68 / MADM Date: 05/03/24 Loc: HO.ED Attending Dr: Ordering Physician: Flo Fleming MD Date of Service: 05/03/24 Procedure(s): XR chest 1V Accession Number(s): [id number] cc: Flo Fleming MD; Veronica Gallardo MD [...] in OV> 05/03/24 1015 DD/ 0930 TD/TT: Training And Development Specialist: PD [facility] External Provider IMG XR PROCEDURES Final Result documented in this encounter Visit Diagnoses Diagnosis Hypertension, unspecified type documented in this encounter Additional Health Concerns Assessment Noted Time PHQ-9 Depression Total Score: 0 03/24/20 23 11:18 AM EDT documented as of this encounter Care Teams Speaker Mounter Relationship Specialty Start Date End Date Veronica Gallardo MD [address] [place] [address] PCP - General Family Medicine 08/09/12 Brien Vargas, Efrain [address] [place] [address] Pharmacist Internal Medicine 11/30/22 documented as of this encounter
--- OUTSIDE RECORDS SUMMARY | 2025-07-15 11:48 | XMS_ITS | Encounter Summary ---
Author Organization [employer] Address 75 [facility] 7t [place] [address] Care Team Providers Care Director Radio Name Role Phone Veronica Gallardo MD Primary Care Provider [phone] Brien Vargas PharmD Unavailable [phone] Reason for Visit * Reason Comments Med Refill Encounter Details Date Type Department Care Team (Late st Contact Info) Description 01/14/2023 Refill [facility] [address] [place] [address] Estefania Gilbert MD [address] [place] [address] Social History Tobacco Use Types Packs/Day Years [...] 10:30 AM EDT Anticoagulation - Warfarin Visit [facility] [address] [place] [address] [phone] 09/02/2025 11:00 AM EST Office Visit [address] [phone] Veronica Gallardo MD 230 [facility] [place], [place] [phone] 10/14/2025 10:00 AM EST Medication Management [facility] [address] [facility] [place], [place] [phone] Brien Vargas, Efrain [address] [place], [place] [phone] documented as of this encounter Goals Goal Patient Goal Type Associated Problems Recent Progress Patient-Stated? Author Blood Pressure < 140/90 Blood Pressure 110/60( 025 9:09 AM EDT) No Brien Vargas PharmD documented as of this encounter Visit Diagnoses Not on filedocumented in this encounter Care Teams Director Radio Relationship Specialty Start Date End Date Veronica Gallardo MD [address] [place], [place] [phone] PCP - General Family Medicine 08/09/12 Brien Vargas PharmD [address] [place] [address] [phone] Pharmacist Internal Medicine 11/30/22 documented as of this encounter
--- OUTSIDE RECORDS SUMMARY | 2025-07-15 11:48 | XMS_ITS | Encounter Summary ---
Author Organization [employer] Address [address] [facility] 7t [place] [address] Care Team Providers Care Typewriter Aligner Name Role Phone Veronica Gallardo MD Primary Care Provider [phone] Brien Vargas PharmD Unavailable [phone] Encounter Details Date Type Department Care Team (Late st Contact Info) Description 06/27/2023 Telephone [facility] MED[facility]INE [address] [place] [address] [phone] Veronica Gallardo MD [address] [place] [address] Social History Tobacco Use Types Packs/Day Years [...] 10:30 AM EDT Anticoagulation - Warfarin Visit [facility] [address] [place] [address] [phone] 09/02/2025 11:00 AM EST Office Visit [address] [phone] Veronica Gallardo MD [address] [place] [address] 10/14/2025 10:00 AM EST Medication Management [facility] 230 [place] [address] Brien Vargas, PharmD [address] [place] [address] documented as of this encounter Goals Goal Patient Goal Type Associated Problems Recent Progress Patient-Stated? Author Blood Pressure < 140/90 Blood Pressure 110/60( 025 9:09 AM EDT) No Brien Vargas, PharmDonte documented as of this encounter Visit Diagnoses Not on filedocumented in this encounter Additional Health Concerns Assessment Noted Time PHQ-9 Depression Total Score: 0 03/24/20 23 11:18 AM EDT documented as of this encounter Care Teams Typewriter Aligner Relationship Specialty Start Date End Date Veronica Gallardo MD 230 [place] [address] PCP - General Family Medicine 08/09/12 Brien Vargas, PharmD [address] [place] [address] [phone] Pharmacist Internal Medicine 11/30/22 documented as of this encounter
--- OUTSIDE RECORDS SUMMARY | 2025-07-15 11:48 | XMS_ITS | Encounter Summary ---
Author Organization [employer] Address [address] [facility] [address] 7[address] [place] [address] Care Team Providers Care Wound Care Nurse Name Role Phone Veronica Gallardo MD Primary Care Provider [phone] Brien Vargas PharmD Unavailable [phone] Encounter Details Date Type Department Care Team (Late st Contact Info) Description 04/02/2025 Orders Only [facility] 230 [place], [place] [phone] Veronica Gallardo MD [address] [place], [place] [phone] Hypertension, unspecified type (Primary Dx); Stage 3 chronic kidney disease, unspecified whether stage 3a or 3b CKD (CMS/HCC); Erythrocytosis; Dyslipidemia; Vitamin D deficiency; Alcohol use disorder, moderate, in early remission (CMS/HCC); Screening for diabetes mellitus; Routine screening for STI (sexually transmitted infection) Social History Tobacco Use Types Packs/Day Years [...] 10:30 AM EDT Anticoagulation - Warfarin Visit [address] [address] 09/02/2025 11:00 AM EST Office Visit [address] [address] Veronica Gallardo MD [address] [place] [address] 10/14/2025 10:00 AM EST Medication Management [address] [address] Brien Vargas, PharmD [address] [place] [address] Scheduled Orders Name Type Priority Associated Diagnoses Orde r Schedule Comprehensive Metabolic Panel Lab Routine Hypertension, unspecified type Expected: 04/02/2025 (Approximate), Expires: 04/02/2026 Albumin, Random Urine W/Creatinine Lab Routine Hypertension, unspecified type Expected: 04/02/2025 (Approximate), Expires: 04/02/2026 CBC auto differential Lab Routine Erythrocytosis Expected: 04/02/2025 (Approximate), Expires: 04/02/2026 Chlamydia/N. Gonorrhoeae RNA, TMA, Urogenitial Microbiology Routine Hypertension, unspecified type Expected: 04/02/2025 (Approximate), Expires: 04/02/2026 documented as of this encounter Goals Goal Patient Goal Type Associated Problems Recent Progress Patient-Stated? Author Blood Pressure < 140/90 Blood Pressure 110/60( 025 9:09 AM EDT) No Brien Vargas, PharmD documented as of this encounter Procedures Procedure Name Priority Date/Time Associated Diagnosis Comments SYPHILIS SCREEN Routine 04/15/2025 9:10 AM EDT Screening for diabetes mellitus VITAMIN D,25-OH,TOTAL,IA Routine 04/15/2025 9:10 AM EDT Vitamin D deficiency VITAMIN B12/FOLATE, SERUM PANEL Routine 04/15/2025 9:10 AM EDT Erythrocytosis Alcohol use disorder, moderate, in early remission (CMS/HCC) TSH W/REFLEX TO FT4 Routine 04/15/2025 9 :10 AM EDT Hypertension, unspecified type LIPID PANEL WITH REFLEX TO DIRECT LDL Routine 04/15/2025 9:10 AM EDT Dyslipidemia HEPATITIS C AB W/REFL TO HCV RNA, QN, PCR Routine 04/15/2025 9:10 AM EDT Screening for diabetes mellitus HEPATITIS B SURFACE ANTIGEN, EIA Routine 04/15/2025 9:10 AM EDT Hypertension, unspecified type HIV 1/2 ANTIGEN/ANTIBODY, FOURTH GENERATION W/RFL Routine 04/15/2025 9:10 AM EDT Hypertension, unspecified type HEMOGLOBIN A1C Routine 04/15/2025 9:10 AM EDT Screening for diabetes mellitus documented in this encounter Results * Hepatitis B surface antigen, EIA (04/15/2025 9:10 AM EDT) Hepatitis B Surface Ag Negative Negative [facility] Venous blood specimen / Unknown 04/15/2025 9:10 AM EDT 04/15/2025 11:17 AM EDT us Veronica Gallardo MD LAB BLOOD ORDERABLES Final Resul t Performing Organization Address [facility] Co de Phone Number [facility] [address] [place] [phone] * HIV-1/2 Antigen and Antibodies, Fourth Generation, with Reflexes (04/15/2025 9:10 AM EDT) HIV AB/AG Nonreactive Nonreactive [facility] Comment:HIV-1 p24 Ag and/or HIV-1/HIV-2 Ab not detected.A test result that is nonreactive does not exclude thepossibility of exposure to or infection with HIV-1 and/orHIV-2. Nonreactive results in this assay for individualswith prior exposure to HIV-1 and/or HIV-2 may be due toantigen and antibody levels that are below the limit ofdetection of this assay.The [employer] HIV Ag/Ab Combo assay result andsupplemental assay results should be interpreted inconjunction with the patient's clinical presentation,history and other laboratory results. If the results areinconsistent with clinical evidence, additional testing issuggested to confirm the result. Venous blood specimen / Unknown 04/15/2025 9:10 AM EDT 04/15/2025 11:17 AM EDT us Veronica Gallardo MD LAB BLOOD ORDERABLES Final Resul t Performing Organization Address [facility] Co de Phone Number [facility] [address] [place] [phone] * Hepatitis C Antibody with Reflex to HCV, RNA, Quantitative, Real-Time PCR (04/15/2025 9:10 AM EDT) Hepatitis C Antibody Nonreactive Nonreactive [facility] Comment:Antibodies to HCV no t detected; does not exclude early acuteHCV infection. Venous blood specimen / Unknown 04/15/2025 9:10 AM EDT 04/15/2025 11:17 AM EDT us Veronica Gallardo MD LAB BLOOD ORDERABLES Final Resul t Performing Organization Address [facility]/ZIP Co de Phone Number [facility] [address] [place] [phone] * Syphilis Screen (04/15/2025 9:10 AM EDT) Syphilis Screen Nonreactive Nonreactive [facility] 04/15/2025 9:10 AM EDT 04/15/2025 6:02 PM EDT us Veronica Gallardo MD LAB BLOOD ORDERABLES Final Resul t Performing Organization Address [facility] Co de Phone Number [facility] [address] [place] [phone] * Vitamin B12 (Cobalamin) and Folate Panel, Serum (04/15/2025 9:10 AM EDT) Vitamin B12 224 200 - 900 pg/mL [facility] Comment:NORMAL 200-900 PG/ML INDETERMINATE 160-199 PG/ML DEFICIENT < 160 PG/ML Folate 12.8 > or = 4.0 ng/mL [facility] Comment:Reference Values:> o r = 4.0 ng/mL< 4.0 ng/mL suggests folate deficiency Methotrexate, aminopterin and folinic acid(leucovorin) are chemotherapeutic agents whose molecularstructures are similar to folate; therefore, the Architectfolate assay cannot be used for patients using these drugs. Blood 04/15/2025 9:10 AM EDT 04/15/2025 11:17 AM EDT us Veronica Gallardo MD LAB BLOOD ORDERABLES Final Resul t Performing Organization Address [facility] Co de Phone Number [facility] [address] [place] [phone] * Vitamin D, 25-Hydroxy, Total, Immunoassay (04/15/2025 9:10 AM EDT) Vitamin D 25-OH Total 42.5 >30 ng/mL [facility] Comment: Health Based Reference Values*< 20 ng/mL Brcldcwfq30-79 ng/mL Insufficient> 30 ng/mL Sufficient*Ken COLEMAN. N [...] MD LAB BLOOD ORDERABLES Final Resul t [facility] [address] [place] [phone] * Lipid Panel with Reflex to Direct LDL (04/15/2025 9:10 AM EDT) Triglycerides 107 <150 mg/dL [facility] Comment:Desirable Triglyceri de: less than 150 mg/dLBorderline High Triglyceride 150-199 mg/dLHigh Triglyceride: 200-499 mg/dLVery High Triglyceride: greater than or equal to 5OO mg/dL Cholesterol 168 <200 mg/dL [facility] Comment:Desirable Cholestero l: less than 200 mg/dLBorderline High Cholesterol: 200-239 mg/dLHigh Cholesterol: greater than 239 mg/dL LDL Cholesterol Calculated 91 <100 mg/dL [facility] Comment:Desirable LDL: less than 100 mg/dLNear Optimal/Above Optimal LDL: 110- 129 mg/dLBorderline High LDL: 130-159 mg/dLHigh LDL: 160-189 mg/dLVery High LDL: greater than or equal to 190 mg/dL HDL Cholesterol 56 >40 mg/dL [facility] Comment:Desirable HDL: great er than 40 mg/dL Note: This HDL assay may give artificially low results in patients with liver disease. Blood 04/15/2025 9:10 AM EDT 04/15/2025 11:17 AM EDT Veronica Gallardo MD LAB BLOOD ORDERABLES Final Resul t Performing Organization Address [facility] Co de Phone Number [facility] [address] [place] [phone] * Hemoglobin A1c (04/15/2025 9:10 AM EDT) Hemoglobin A1c 5.3 <6.0 % [facility] Comment:Hemoglobin A1C Refer ence Range Adults: 4.8 - 6.0 % Non diabetic: < 6.0 % Goal: < 7.0 %Additional Action Suggested: > 8.0 %Note: Hemoglobin A1c results are invalid for patients with abnormal amounts of HbF. Blood transfusions may impact the HbA1c concentration in the patient sample. Estimated Average Glucose 105 mg/dL [facility] Comment:eAG = Estimated ave rage glucose which is %A1C expressed asaverage glucose, using the formula of the M1Y-GdfdrefBggglek Glucose study (ADAG), Diabetes Care, Vol.31,#8,May. 2007 Blood Venous blood specimen / Unknown 04/15/2025 9:10 AM EDT 04/15/2025 11:17 AM EDT us Veronica Gallardo MD LAB BLOOD ORDERABLES Final Resul t Performing Organization Address [facility] Co de Phone Number [facility] [address] [place] [phone] * TSH with Reflex to Free T4 (04/15/2025 9:10 AM EDT) TSH reflex Free T4 2.74 0.32 - 4.0 uIU/mL [facility] Blood 04/15/2025 9:10 AM EDT 04/15/2025 11:17 AM EDT us Veronica Gallardo MD LAB BLOOD ORDERABLES Final Resul t [facility] [address] [place] [phone] documented in this encounter Visit Diagnoses Diagnosis Hypertension, unspecified type- Primary Stage 3 chronic kidney disease, unspecified whether stage 3a or 3b CKD ([facility]) ([facility]) Erythrocytosis Polycythemia, secondary Dyslipidemia Other and unspecified hyperlipidemia Vitamin D deficiency Alcohol use disorder, moderate, in early remission (CMS/[facility]) ([facility]) Screening for diabetes mellitus Routine screening for STI (sexually transmitted infection) Screening examination for venereal disease documented in this encounter Additional Health Concerns Assessment Noted Time PHQ-9 Depression Total Score: 0 03/24/20 23 11:18 AM EDT documented as of this encounter Care Teams Wound Care Nurse Relationship Specialty Start Date End Date Veronica Gallardo MD [address] [place] [address] PCP - General Family Medicine 08/09/12 Brien Vargas, PallaviD [address] [place] [address] Pharmacist Internal Medicine 11/30/22 documented as of this encounter
--- OUTSIDE RECORDS SUMMARY | 2025-07-15 11:48 | XMS_ITS | Encounter Summary ---
Author Organization [employer] Address 75 [facility] 7t [place] [address] Care Team Providers Care Speech Language Pathology Assistant Name Role Phone Veronica Gallardo MD Primary Care Provider [phone] Brien Vargas PharmD Unavailable [phone] Reason for Referral * Consultation (Routine) - Canceled Specialty Diagnoses / Procedures Referred By Contac t Referred To Contact Pharmacy Diagnoses Hypertension, unspecified type Veronica Gallardo MD [address] [place] [address] Phone: tel: fax: Referral ID Status Reason Start Date Expiration Date V isits Requested Visits Authorized [id number] Canceled Consult and Treat 10/12/2024 10/12/2025 6 6 Encounter Details Date Type Department Care Team (Late st Contact Info) Description 10/12/2024 Orders Only [facility] [address] [place] [address] [phone] Veronica Gallardo MD [address] [place], [place] [phone] Hypertension, unspecified type (Primary Dx) Social History [...] AM EDT Anticoagulation - Warfarin Visit [address] [address] 09/02/2025 11:00 AM EST Office Visit [address] [address] Veronica Gallardo MD [address] [place] [address] 10/14/2025 10:00 AM EST Medication Management [facility] [address] [place] [phone] Brien Vargas, PharmD [address] [place] [phone] Scheduled Referrals Name Type Priority Associated Diagnoses [...] documented as of this encounter Care Teams Speech Language Pathology Assistant Relationship Specialty Start Date End Date Veronica Gallardo MD [address] [place] [address] PCP - General Family Medicine 08/09/12 Brien Vargas, PharmD [address] [place] [phone] Pharmacist Internal Medicine 11/30/22 documented as of this encounter
[2025-07-15 12:05] LABS: Prostate Specific Antigen 2.82 ng/mL (<0.05-4.0)
== END 2025-07-15 10:10 | disposition home or self-care (01) ==
LOC: HO.LAB 10:09
PROVIDERS: PCP Family Medicine; Visit Provider Nurse Practitioner Family
DX: Z12.5 Encounter for screening for malignant neoplasm of prostate (principal)
CPT/HCPCS: 36415; 84153

== ENCOUNTER 2025-07-18 13:46 | Emergency (ER) | payer OTHER, SELFPAY ==
--- NOTE | ~2025-07-18 | XR_ITS ---
EXAMINATION: XR CHEST CLINICAL INFORMATION: chest pain COMPARISON: 05/11/2025, 09/07/2024 TECHNIQUE: 2 views of the chest were obtained. FINDINGS: The cardiac, hilar, and mediastinal contours are normal. Aortic mural calcifications. The lungs demonstrate mild hyperaeration and prominence of the background interstitial markings, similar to prior studies. There is subsegmental minor atelectasis in both lung bases. Minimal blunting of the posterior costophrenic sulci could indicate tiny effusions. There is no pneumothorax. There is no focal osseous or soft tissue abnormality. XR/XR chest 2V IMPRESSION: 1. Chronically increased background interstitial markings, suggesting chronic interstitial lung changes. A subtle component of interstitial edema is not excluded. 2. Subtle blunting of the posterior costophrenic sulci, possibly indicating tiny effusions. 3. No consolidative pneumonia. Electronically signed by: Rex Lindo MD 07/18/2025 03:02 PM EDT
--- NOTE | 2025-07-18 13:49 | ECG_ITS ---
Test Reason : CP Blood Pressure : */* mmHG Vent. Rate : 54 BPM Atrial Rate : 54 BPM P-R Int : 164 ms QRS Dur : 78 ms QT Int : 434 ms P-R-T Axes : 78 19 30 degrees QTcB Int : 411 ms Sinus bradycardia Otherwise normal ECG When compared with ECG of 11-May-2025 15:29, No significant change was found Referred By: Generic ED Physician Electronically Signed By: MARSHALL TATE MD
[2025-07-18 13:51] VITALS: BP 144/80; PULSE 88; O2SAT 94
[2025-07-18 13:58] VITALS: BP 148/84; PULSE 62; RESP 18; TEMP 36.7; O2SAT 95
[2025-07-18 14:11] VITALS: BP 148/84; PULSE 62; RESP 18; TEMP 36.7; O2SAT 95; BMI 26.0
[2025-07-18 14:14] VITALS: PULSE 53
--- NOTE | 2025-07-18 14:15 | ED.CHESTPAIN ---
HPI - Chest Pain General Chief Complaint: Chest Pain Stated Complaint: CHEST PAIN Time Seen by Provider: 07/18/25 14:15 Source: patient and java consultant Limitations: language barrier History of Present Illness ED Provider: HPI narrative: 70-year-old male started developing chest pain when he received a phone call that his relative , at the time of my evaluation he was no longer in pain he did received nitro and aspirin EN route, no nausea or vomiting or diaphoresis associated with the pain. Related Data Home Medications ?Medication ?Instructions ?Recorded ?Confirmed fluticasone propionate 50 1 spray intranasal DAILY 08/06/20 02/11/25 mcg/actuation nasal spray,suspension acetaminophen 325 mg capsule 650 mg PO Q8H PRN fever or pain 10/19/23 02/11/25 (Tylenol) amlodipine 10 mg tablet 10 mg PO DAILY 05/03/24 02/11/25 atorvastatin 10 mg tablet 10 mg PO BEDTIME 05/03/24 02/11/25 buspirone 30 mg tablet 30 mg PO BID 05/03/24 02/11/25 cholecalciferol (vitamin D3) 50 50 mcg PO DAILY 05/03/24 02/11/25 mcg (2,000 unit) capsule (Vitamin D3) docusate sodium 100 mg capsule 100 mg PO BID 05/03/24 02/11/25 folic acid 1 mg tablet 1 mg PO DAILY 05/03/24 02/11/25 gabapentin 300 mg capsule 300 mg PO DAILY 05/03/24 02/11/25 hydralazine 50 mg tablet 50 mg PO TID 05/03/24 02/11/25 loratadine 10 mg tablet 10 mg PO DAILY 05/03/24 02/11/25 mirtazapine 45 mg tablet 45 mg PO BEDTIME 05/03/24 02/11/25 omeprazole 20 mg capsule,delayed 20 mg PO DAILY 05/03/24 02/11/25 release phenytoin sodium extended 100 mg 100 mg PO TID 05/03/24 02/11/25 capsule thiamine HCl (vitamin B1) 100 mg 100 mg PO QAM 05/03/24 02/11/25 tablet warfarin 1 mg tablet 5 mg PO QWEEK 05/03/24 02/11/25 warfarin 4 mg tablet 4 mg PO DAILY 05/03/24 07/16/24 Previous Rx's ?Medication ?Instructions ?Recorded finasteride 5 mg tablet 5 mg PO DAILY 90 days #90 tabs 01/14/25 terazosin 5 mg capsule 5 mg PO BEDTIME 90 days #90 caps 01/14/25 Allergies Allergy/AdvReac Type Severity Reaction Status Date / Time ibuprofen (From Motrin) Allergy Intermediate Unknown Verified 07/18/25 14:14 acetaminophen (From Percocet) Allergy Unknown Verified 07/18/25 14:14 oxycodone Allergy Unknown Verified 07/18/25 14:14 Review of Systems Constitutional: Constitutional: Reports as per HPI [facility] Past Medical History Medical History Ascending aortic aneurysm Colon cancer screening Hemorrhoid Aortic aneurysm GERD (gastroesophageal reflux disease) Chronic anticoagulation Alcohol abuse Mood disorder Mood disorder due to a general medical condition Peripheral vascular disease DVT (deep venous thrombosis) Hyperhomocysteinemia CKD (chronic kidney disease) Depression Seizure Surgical History Hx of colonoscopy Hx of hernia repair Family History Family History Paternal Grandmother Cancer Maternal Grandfather Cancer Paternal Aunt Cancer Social History Social History Household Members: None Housing: Apartment Are you a primary health care legal assistant to a significant other at home: No Do you presently have visiting nurse or other home services: No Alcohol intake: current Alcohol intake frequency: does not drink Alcohol type: beer Patient Tobacco Use Status: Never used Tobacco Smoked in Last 30 Days: No Use of substances other than those prescribed or required for medical reasons: No Advance Directives: Yes Advance Directives on File: Yes Advance Directives Date on File: 10/01/20 service: No Current occupational status: disabled Physical Exam Vital Signs: Vital Signs: Last Vital Signs Temp 98.1 F 07/18/25 14:11 Pulse 62 07/18/25 14:11 Resp 18 07/18/25 14:11 BP 148/84 H 07/18/25 14:11 Pulse Ox 95 07/18/25 14:11 O2 Del Method Room Air 07/18/25 14:11 BMI result Body Mass Index 26.0 Const: Other: General: ?Appears of stated age ? ?PERRLA, EOMI, MMM, ? Neck: Supple, no LAD ? ?CV: RRR, 2/6 systolic ejection murmur heard best at the mitral area ? ?Resp: ?No wheezing rales rhonchi no stridor moving air well ? Abd: ?Bowel sounds are present, no tenderness no rebound no rigidity ? ?MSK: FROM, strength 5/5 all extremities ? Skin: Warm, dry, intact, ? ?Neuro: ?Alert and oriented x3, moving upper and lower extremities symmetrically, no obvious facial asymmetry noted, cranial nerves 2-12 intact Medications Administered Discontinued Medications Generic Name Dose Route Start Last Admin Trade Name Freq PRN Reason Stop Dose Admin Diazepam 2 mg 07/18/25 14:38 07/18/25 15:09 Diazepam 2 Mg Tablet PO 07/18/25 14:39 2 mg ONCE ONE Administration Medical Decision Making Medical Decision Making [facility] Narrative: 3:40 PM 07/18/2025 (Dr. Freddy Craig): Was otherwise doing well until you are heard stressful news, takotsubo cardiomyopathy, ACS highest on my differential, also medicate for anxiety, no hypoxia tachycardia to suspect PE and he is on warfarin as well this is not significant chest pain radiating to the back to suspect aortic dissection, with negative workup with anticipate discharge Differential Diagnosis Differential Diagnoses: The differential diagnosis associated with the presentation includes (ACS, pneumothorax, aortic dissection, PE, takotsubo cardiomyopathy) Admission/Observation Consideration of admission/observation: Escalation of care including admission/observation considered Lab Data [facility] Lab Attestation statement: I reviewed the patient's lab results. 07/18/25 14:13 07/18/25 14:13 Labs: Lab Results 07/18/25 Range/Units 14:13 WBC 4.3 L (4.8-10.8) X10*3/uL RBC 4.68 (4.60-5.80) X10*6/uL Hgb 15.6 (14.0-18.0) g/dl Hct 46.8 (42.0-52.0) % MCV 100.0 H (80.0-98.0) fL MCH 33.3 H (27.0-33.0) pg MCHC 33.3 (31.0-36.0) g/dl RDW 12.5 (11.0-16.0) % Plt Count 97 L (160-400) X10*3/uL MPV 10.3 (9.4-12.4) fL Immature Gran % (Auto) 0.5 H (0.0-0.4) % Neut % (Auto) 75.9 H (45-73) % Lymph % (Auto) 11.0 L (20-40) % Winkler % (Auto) 7.9 (2-11) % Eos % (Auto) 4.2 H (0-4) % Baso % (Auto) 0.5 (0-2) % Lymph # (Auto) 0.5 L (1.2-4.9) X10*3/uL Winkler # (Auto) 0.3 (0.1-1.2) X10*3/uL Eos # (Auto) 0.2 (0.0-0.4) X10*3/uL Baso # (Auto) 0.0 (0.0-0.2) X10*3/uL Abs Immat Gran (auto) 0.02 (0.00-0.03) X10*3/uL Absolute Neuts (auto) 3.3 (2.0-8.3) x10*3/uL Absolute Nucleated RBC 0.000 (0.0-0.012) X10*3/uL Nucleated RBC % (auto) 0.0 (0.0-0.2) /100WBC Sodium 142 (135-145) mmol/L Potassium 4.2 (3.3-5.1) mmol/L Chloride 109 H (96-108) mmol/L Carbon Dioxide 29 (22-29) mmol/L Anion Gap 8 L (12-20) BUN 25 H (9-16) mg/dL Creatinine 1.43 H (0.5-1.4) mg/dL Estim Creat Clear Calc 46.6 Estimated GFR 49 Random Glucose 118 H (60-115) mg/dL Calcium 10.0 (8.4-10.2) mg/dL Troponin I High Sens 13.9 (<3.5-35.0) ng/L Independent Interpretation I performed an independent interpretation of an: EKG (54 beats per minute otherwise normal ECG without dysrhythmia, AV mickie blocks or ST-T changes to suspect underlying ACS, my independent interpretation) and Plain X-Ray (My independent chest xray interpretation: Lungs: Lungs are clear bilaterally without evidence of focal consolidation, pleural effusion, or pneumothorax. Cardiac silhouette is unremarkable, no obvious mediastinal widening, no obvious bony abnormalities such as fractures. Impression: Normal chest X-r) Radiology Impression Discussion of test interpretation with radiology: I have reviewed the radiologist's reading. (1. Chronically increased background interstitial markings, suggesting chronic interstitial lung changes. A subtle component of interstitial edema is not excluded. 2. Subtle blunting of the posterior costophrenic sulci, possibly indicating tiny effusions. 3. No consolidative pneumonia.) Independent Historian Clinical information obtained from an independent historian. History obtained from or confirmed by: EMS Prescription Management I considered prescription management with: Pain Medication Chronic Conditions Patient?s care impacted by: Hypertension Discharge Plan Discharge Clinical Impression: Chest pain, precordial, CKD (chronic kidney disease) stage 3, GFR 30-59 ml/min Patient Disposition: Home, Self-Care Additional Instructions: Your workup today has been reassuring, EKG, chest x-ray EKG, I am sorry for your loss I did want to make sure that the stress you were experiencing did not cause damage to her heart and the workup has been unremarkable, I provided you with a small amount of medication for anxiety otherwise I would like you to continue using all your regular medications, follow up with the PCP, any other issues or concerns come back to the ER You had cardiac enzymes, blood work, EKG and chest x-ray Portal del paciente Si usted no esta inscrito en el portal de pacientes de [facility] y [facility], recibira bijan invitacion de inscripcion despues de salazar visita al [facility] o al [facility] via correo electronico. Tambien puede inscribirse voluntariamente en el portal de pacientes visitando nuestra pagina web: [email or web address] La siguiente informacion sera requerida para acceder al portal: - Salazar shiloh de historia medica de [facility] - Salazar direccion de correo electronico personal - Nombre - Fecha de nacimiento Capacidades: Las siguientes capacidades estan disponibles en el portal de pacientes: - Enviar mensajes a algunos doctores - Verificar proximas citas - Acceso a salazar historial de renee, registro medico e historial de visitas - Dipak las condiciones actuales y alergias dipak procedimientos y resultados del laboratorio - Dipak raimundo medicamentos, incluyendo las pautas - Efectos secundarios y precauciones - Completar o llenar formularios / cuestionarios de - Citas solicitadas por salazar doctor - Leer los resumenes de reportes medicos de raimundo visitas y procedimientos [place] acceder a la aplicacion movil: - [employer] en la [employer] Store o [employer] Play Store - Descargue la aplicacion - [facility] - Ingrese salazar nombre de usuario / Contrasena Prescriptions: No Action fluticasone propionate 50 mcg/actuation spray,suspension 1 spray intranasal DAILY acetaminophen [Tylenol] 325 mg capsule 650 mg PO Q8H PRN (Reason: fever or pain) amlodipine 10 mg tablet 10 mg PO DAILY atorvastatin 10 mg tablet 10 mg PO BEDTIME buspirone 30 mg tablet 30 mg PO BID thiamine HCl (vitamin B1) 100 mg tablet 100 mg PO QAM phenytoin sodium extended 100 mg capsule 100 mg PO TID warfarin 4 mg tablet 4 mg PO DAILY docusate sodium 100 mg capsule 100 mg PO BID gabapentin 300 mg capsule 300 mg PO DAILY omeprazole 20 mg capsule,delayed release(DR/EC) 20 mg PO DAILY mirtazapine 45 mg tablet 45 mg PO BEDTIME folic acid 1 mg tablet 1 mg PO DAILY hydralazine 50 mg tablet 50 mg PO TID warfarin 1 mg tablet 5 mg PO QWEEK Rx Instructions: 5mg on loratadine 10 mg tablet 10 mg PO DAILY cholecalciferol (vitamin D3) [Vitamin D3] 50 mcg (2,000 unit) capsule 50 mcg PO DAILY terazosin 5 mg capsule 5 mg PO BEDTIME 90 Days Qty: 90 3RF finasteride 5 mg tablet 5 mg PO DAILY 90 Days Qty: 90 3RF Print Language: Mauritanian
[2025-07-18 14:17] LABS: MANUAL DIFF FLAG NO
[2025-07-18 14:22] LABS: Hematocrit 46.8 % (42.0-52.0); Hemoglobin 15.6 g/dl (14.0-18.0); Imm Gran Abs Auto 0.02 X10*3/uL (0.00-0.03); Imm Gran Pct Auto 0.5 % (0.0-0.4); Lymphocytes Absolute Auto 0.5 X10*3/uL (1.2-4.9); Mean Corpuscular HGB Conc 33.3 g/dl (31.0-36.0); Mean Corpuscular Hemoglobin 33.3 pg (27.0-33.0); Mean Corpuscular Volume 100.0 fL (80.0-98.0); NRBC Abs Auto 0.000 X10*3/uL (0.0-0.012); NRBC Pct Auto 0.0 /100WBC (0.0-0.2); Red Blood Count 4.68 X10*6/uL (4.60-5.80); White Blood Count 4.3 X10*3/uL (4.8-10.8)
[2025-07-18 14:28] LABS: Platelet Count 97 X10*3/uL (160-400)
[2025-07-18 14:35] LABS: Anion Gap 8 (12-20); Blood Urea Nitrogen 25 mg/dL (9-16); Calcium 10.0 mg/dL (8.4-10.2); Carbon Dioxide 29 mmol/L (22-29); Chloride 109 mmol/L (96-108); Creatinine Clr Calc Pharmacy 46.6; Estimated Glomerular Filt Rate 49; Potassium 4.2 mmol/L (3.3-5.1); Sodium 142 mmol/L (135-145)
[2025-07-18 14:45] LABS: Troponin-I High Sensitivity 13.9 ng/L (<3.5-35.0)
[2025-07-18 16:37] VITALS: BP 141/90; PULSE 50; RESP 16; TEMP 36.8; O2SAT 97
[2025-07-18 17:09] LABS: Troponin-I High Sensitivity 18.7 ng/L (<3.5-35.0)
[2025-07-18 17:51] VITALS: BP 158/98; PULSE 60; RESP 18; TEMP 36.8; O2SAT 98
== END 2025-07-18 18:07 | disposition home or self-care (01) ==
PROVIDERS: Emergency Provider Emergency Medicine; PCP Family Medicine
DX: R07.2 Precordial pain (principal); N18.30 Chronic kidney disease, stage 3 unspecified; K21.9 Gastro-esophageal reflux disease without esophagitis; R00.1 Bradycardia, unspecified
CPT/HCPCS: 36415; 71046; 80048; 84484; 85025; 93005; 99283; 99285

== ENCOUNTER → 2025-07-18 13:49 | Outpatient (BNV) | payer OTHER, SELFPAY | PROVIDERS: Emergency Provider Emergency Medicine; PCP Family Medicine; Visit Provider Internal Medicine Cardiovascular Disease | DX: R00.1 Bradycardia, unspecified (principal) | CPT/HCPCS: 93010 ==

== ENCOUNTER → 2025-07-18 14:38 | Outpatient (BNV) | payer OTHER, SELFPAY | PROVIDERS: Emergency Provider Emergency Medicine; PCP Family Medicine; Visit Provider Radiology Diagnostic Radiology | DX: R07.9 Chest pain, unspecified (principal) | CPT/HCPCS: 71046 ==

== ENCOUNTER 2025-07-23 21:24 | Emergency (ER) | payer OTHER, SELFPAY ==
--- NOTE | ~2025-07-23 | XR_ITS ---
CLINICAL HISTORY: pain Abdomen X-ray, 1 View COMPARISON: None provided FINDINGS: Moderate gas Nonobstructive bowel gas pattern. Fagsjqur-ht-[id number] stool in the rectum which measures up to 7.2 cm in diameter. Moderate gas and stool in the colon. No visible free air. No acute fracture. IMPRESSION: [id number] stool in the rectum. Fecal impaction should be considered. This document has been electronically signed by: Avi Willis MD on 07/24/2025 04:20:43
[2025-07-23 21:30] VITALS: BP 151/88; PULSE 94; O2SAT 96
[2025-07-23 21:44] VITALS: BP 147/90; PULSE 79; RESP 16; TEMP 36.6; O2SAT 96; BMI 23.4
[2025-07-24 02:41] VITALS: BP 130/92; PULSE 73; RESP 16; TEMP 36.7; O2SAT 95
--- NOTE | 2025-07-24 03:23 | ED.GENADULT ---
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 Patient reports increasing pain this afternoon. He reports that he was trying to have a bowel movement when he was straining due to constipation and he felt the pain in his left lower back. The pain is worse with movement. He does have a history of a herniated disc and feels that he exacerbated this He denies any black or bloody stool. Denies any diarrhea. He did not have any abdominal pain until after this episode of constipation and straining His abdominal pain is quite low Denies any blood in the urine or burning with urination Related Data Home Medications ?Medication ?Instructions ?Recorded ?Confirmed fluticasone propionate 50 1 spray intranasal DAILY 08/06/20 02/11/25 mcg/actuation nasal spray,suspension acetaminophen 325 mg capsule 650 mg PO Q8H PRN fever or pain 10/19/23 02/11/25 (Tylenol) amlodipine 10 mg tablet 10 mg PO DAILY 05/03/24 02/11/25 atorvastatin 10 mg tablet 10 mg PO BEDTIME 05/03/24 02/11/25 buspirone 30 mg tablet 30 mg PO BID 05/03/24 02/11/25 cholecalciferol (vitamin D3) 50 50 mcg PO DAILY 05/03/24 02/11/25 mcg (2,000 unit) capsule (Vitamin D3) docusate sodium 100 mg capsule 100 mg PO BID 05/03/24 02/11/25 folic acid 1 mg tablet 1 mg PO DAILY 05/03/24 02/11/25 gabapentin 300 mg capsule 300 mg PO DAILY 05/03/24 02/11/25 hydralazine 50 mg tablet 50 mg PO TID 05/03/24 02/11/25 loratadine 10 mg tablet 10 mg PO DAILY 05/03/24 02/11/25 mirtazapine 45 mg tablet 45 mg PO BEDTIME 05/03/24 02/11/25 omeprazole 20 mg capsule,delayed 20 mg PO DAILY 05/03/24 02/11/25 release phenytoin sodium extended 100 mg 100 mg PO TID 05/03/24 02/11/25 capsule thiamine HCl (vitamin B1) 100 mg 100 mg PO QAM 05/03/24 02/11/25 tablet warfarin 1 mg tablet 5 mg PO QWEEK 05/03/24 02/11/25 warfarin 4 mg tablet 4 mg PO DAILY 05/03/24 07/16/24 Previous Rx's ?Medication ?Instructions ?Recorded finasteride 5 mg tablet 5 mg PO DAILY 90 days #90 tabs 01/14/25 terazosin 5 mg capsule 5 mg PO BEDTIME 90 days #90 caps 01/14/25 magnesium citrate 148 ml PO BID PRN constipation 07/24/25 #296 mL polyethylene glycol 3350 17 17 g PO DAILY PRN constipation 2 07/24/25 gram/dose oral powder (Miralax) weeks #238 grams sodium phosphates 19 gram-7 118 ml [place] DAILY PRN constipation 07/24/25 gram/197 mL enema (Fleet Enema #230 mL Extra) Allergies Allergy/AdvReac Type Severity Reaction Status Date / Time ibuprofen (From Motrin) Allergy Intermediate Unknown Verified 07/23/25 21:46 acetaminophen (From Percocet) Allergy Unknown Verified 07/23/25 21:46 oxycodone Allergy Unknown Verified 07/23/25 21:46 Review of Systems Constitutional: Constitutional: Denies body ache(s), Denies chills, Denies fever(s) and Denies headache(s) Eyes: Eyes: Denies blurry vision ENT: Denies vertigo, Denies dizziness and Denies headache(s) Cardiovascular: Cardiovascular: Denies chest pain and Denies dyspnea on exertion Respiratory: Respiratory: Denies cough and Denies dyspnea on exertion Gastrointestinal: Gastrointestinal: Reports abdominal pain, Denies nausea and Denies vomiting Genitourinary: Genitourinary: Denies hematuria Musculoskeletal: Musculoskeletal: Reports back pain, Denies stiffness and Denies tingling Integumentary/Breasts: Skin/Breast: Denies rash Neurologic: Denies vertigo, Denies dizziness, Denies headache(s) and Denies tingling Psychiatric: Psychiatric: Denies anxiety PMFSH Past Medical History Medical History Ascending aortic aneurysm Colon cancer screening Hemorrhoid Aortic aneurysm GERD (gastroesophageal reflux disease) Chronic anticoagulation Alcohol abuse Mood disorder Mood disorder due to a general medical condition Peripheral vascular disease DVT (deep venous thrombosis) Hyperhomocysteinemia CKD (chronic kidney disease) Depression Seizure Surgical History Hx of colonoscopy Hx of hernia repair Family History Family History Paternal Grandmother Cancer Maternal Grandfather Cancer Paternal Aunt Cancer Social History Social History Household Members: None Housing: Apartment Are you a primary director of healthcare systems to a significant other at home: No Do you presently have visiting nurse or other home services: No Alcohol intake: current Alcohol intake frequency: does not drink Alcohol type: beer Patient Tobacco Use Status: Never used Tobacco Smoked in Last 30 Days: No Use of substances other than those prescribed or required for medical reasons: No Advance Directives Date on File: 10/01/20 Do you have a plan to hurt others: No Plan service: No Current occupational status: disabled Physical Exam ED Vital Signs: Vital Signs - 24 hr 07/23/25 21:44 07/24/25 02:41 Temperature 97.9 F 98.0 F Pulse Rate 79 73 Respiratory Rate 16 16 Blood Pressure 147/90 H 130/92 H Pulse Oximetry 96 95 Oxygen Delivery Method Room Air Room Air BMI result Body Mass Index 23.4 Const General: healthy appearing, comfortable, no acute distress, alert and awake Nutritional Appearance: well nourished Orientation/consciousness: patient oriented x3 HENMT Head: Yes normocephalic and Yes atraumatic Eyes Eyelids: Yes eyelids normal Conjunctivae: conjunctivae normal Sclerae: sclerae normal Corneas: corneas normal Pupils: Equal, round and reactive pupils present EOM: EOMs intact bilaterally Neck Neck: Yes full ROM Resp Effort & Inspection: normal respiratory effort, able to speak in complete sentences, no audible wheezes and not labored Auscultation: clear to auscultation bilaterally Cardio Rate: regular rate Rhythm: regular rhythm GI Inspection: No distended Palpation (GI): Soft to palpation, not firm, nontender, no guarding and not rigid Back/Spine/Pelvis Other: The patient has some mild left lumbar paraspinous muscle tenderness. No vertebral tenderness. No step-offs or deformities. Straight leg raise negative bilaterally Skin General skin exam: elasticity normal Neuro General: patient oriented x3 Cranial nerves: Yes Equal, round and reactive pupils present and Yes Bilaterally intact EOM present Cognition (Neuro): normal cognition Extrem Other: Moving all extremities well without any obvious deformities Course Reevaluation(s) Reevaluation #1: Patient's workup shows significant constipation with fecal impaction. I discussed treatment options and recommended digital rectal disimpaction given the size of the fecal impaction. The patient declines digital rectal disimpaction. He would prefer to be discharged home to try an enema with laxatives. Time: 05:29 Medical Decision Making Medical Decision Making [facility] Narrative: 70-year-old male presents for evaluation of lower back pain and lower abdominal pain after straining while having a bowel movement. He does report a history of constipation. His pain is quite low in the abdomen, I have a lower suspicion for AAA. We will get a urinalysis, KUB to evaluate for constipation. Check basic labs including an INR. He is quite well appearing, he has no chest pain or epigastric pain. Less likely cardiac disease. His pain may simply be musculoskeletal and radiating from his lower back pain due to his known disc herniation. Differential Diagnosis Differential Diagnoses: The differential diagnosis associated with the presentation includes Muscle strain Disc herniation Constipation Obstructive uropathy Pyelonephritis Cystitis Lab Data [facility] Lab Attestation statement: I reviewed the patient's lab results. No leukocytosis or significant anemia. No significant electrolyte abnormalities warranting intervention 07/24/25 03:23 07/24/25 03:23 Labs: Lab Results 07/24/25 07/24/25 Range/Units 03:23 03:58 WBC 5.2 (4.8-10.8) X10*3/uL RBC 4.58 L (4.60-5.80) X10*6/uL Hgb 15.3 (14.0-18.0) g/dl Hct 44.8 (42.0-52.0) % MCV 97.8 (80.0-98.0) fL MCH 33.4 H (27.0-33.0) pg MCHC 34.2 (31.0-36.0) g/dl RDW 12.3 (11.0-16.0) % Plt Count 101 L (160-400) X10*3/uL MPV 9.9 (9.4-12.4) fL Immature Gran % (Auto) 0.2 (0.0-0.4) % Neut % (Auto) 71.8 (45-73) % Lymph % (Auto) 13.8 L (20-40) % [place] % (Auto) 8.4 (2-11) % Eos % (Auto) 5.2 H (0-4) % Baso % (Auto) 0.6 (0-2) % Lymph # (Auto) 0.7 L (1.2-4.9) X10*3/uL [place] # (Auto) 0.4 (0.1-1.2) X10*3/uL Eos # (Auto) 0.3 (0.0-0.4) X10*3/uL Baso # (Auto) 0.0 (0.0-0.2) X10*3/uL Abs Immat Gran (auto) 0.01 (0.00-0.03) X10*3/uL Absolute Neuts (auto) 3.8 (2.0-8.3) x10*3/uL Absolute Nucleated RBC 0.000 (0.0-0.012) X10*3/uL Nucleated RBC % (auto) 0.0 (0.0-0.2) /100WBC PT 25.2 H (10.9-12.4) SEC INR 2.2 H (0.9-1.1) Sodium 142 (135-145) mmol/L Potassium 4.2 (3.3-5.1) mmol/L Chloride 111 H (96-108) mmol/L Carbon Dioxide 25 (22-29) mmol/L Anion Gap 10 L (12-20) BUN 23 H (9-16) mg/dL Creatinine 1.39 (0.5-1.4) mg/dL Estim Creat Clear Calc 48.0 Estimated GFR 50 Random Glucose 120 H (60-115) mg/dL Calcium 9.8 (8.4-10.2) mg/dL Total Bilirubin 0.5 (0.0-1.0) mg/dL AST 22 (5-37) U/L ALT 25 (0-40) U/L Alkaline Phosphatase 67 (39-117) U/L Total Protein 6.7 (6.5-8.0) g/dL Albumin 4.0 (3.5-5.0) g/dL Lipase 34 (8-78) U/L Independent Interpretation I performed an independent interpretation of an: Plain X-Ray Interpretation: Moderate to severe stool burden Radiology Impression Discussion of test interpretation with radiology: I have reviewed the radiologist's reading. Radiologist Impression: FINDINGS: Moderate gas Nonobstructive bowel gas pattern. Luywehgc-[id number]-ghmbm stool in the rectum which measures up to 7.2 cm in diameter. Moderate gas and stool in the colon. No visible free air. No acute fracture. IMPRESSION: Toydghvv-st-fruwo stool in the rectum. Fecal impaction should be considered. This document has been electronically signed by: Avi Willis MD on 07/24/2025 04:20:43 Discharge Plan Discharge Clinical Impression: Constipation Patient Disposition: Home, Self-Care Instructions: Constipation (ED), High Fiber Diet (ED), Fleet Enema (ED) Additional Instructions: Your x-ray showed significant constipation with fecal impaction. I recommend taking magnesium citrate, drink half the bottle on when you feel like if they have a bowel movement you should use the enema and hold it in for 10 minutes Increase fluid and fiber intake in your diet pain Take MiraLax for the next 2 weeks Follow up with your primary doctor, return for new or worsening symptoms Prescriptions: New magnesium citrate Solution 148 ml PO BID PRN (Reason: constipation) Qty: 296 0RF polyethylene glycol 3350 [Miralax] 17 gram/dose powder 17 g PO DAILY PRN (Reason: constipation) 14 Days Qty: 238 0RF Fleet Enema Extra 19-7 gram/197 mL enema 118 ml MI DAILY PRN (Reason: constipation) Qty: 230 0RF No Action fluticasone propionate 50 mcg/actuation spray,suspension 1 spray intranasal DAILY acetaminophen [Tylenol] 325 mg capsule 650 mg PO Q8H PRN (Reason: fever or pain) amlodipine 10 mg tablet 10 mg PO DAILY atorvastatin 10 mg tablet 10 mg PO BEDTIME buspirone 30 mg tablet 30 mg PO BID thiamine HCl (vitamin B1) 100 mg tablet 100 mg PO QAM phenytoin sodium extended 100 mg capsule 100 mg PO TID warfarin 4 mg tablet 4 mg PO DAILY docusate sodium 100 mg capsule 100 mg PO BID gabapentin 300 mg capsule 300 mg PO DAILY omeprazole 20 mg capsule,delayed release(DR/EC) 20 mg PO DAILY mirtazapine 45 mg tablet 45 mg PO BEDTIME folic acid 1 mg tablet 1 mg PO DAILY hydralazine 50 mg tablet 50 mg PO TID warfarin 1 mg tablet 5 mg PO QWEEK Rx Instructions: 5mg on loratadine 10 mg tablet 10 mg PO DAILY cholecalciferol (vitamin D3) [Vitamin D3] 50 mcg (2,000 unit) capsule 50 mcg PO DAILY terazosin 5 mg capsule 5 mg PO BEDTIME 90 Days Qty: 90 3RF finasteride 5 mg tablet 5 mg PO DAILY 90 Days Qty: 90 3RF Print Language: Finnish
[2025-07-24 03:29] LABS: MANUAL DIFF FLAG NO
[2025-07-24 03:35] LABS: Hematocrit 44.8 % (42.0-52.0); Hemoglobin 15.3 g/dl (14.0-18.0); Imm Gran Abs Auto 0.01 X10*3/uL (0.00-0.03); Imm Gran Pct Auto 0.2 % (0.0-0.4); Lymphocytes Absolute Auto 0.7 X10*3/uL (1.2-4.9); Mean Corpuscular HGB Conc 34.2 g/dl (31.0-36.0); Mean Corpuscular Hemoglobin 33.4 pg (27.0-33.0); Mean Corpuscular Volume 97.8 fL (80.0-98.0); NRBC Abs Auto 0.000 X10*3/uL (0.0-0.012); NRBC Pct Auto 0.0 /100WBC (0.0-0.2); Platelet Count 101 X10*3/uL (160-400); Red Blood Count 4.58 X10*6/uL (4.60-5.80); White Blood Count 5.2 X10*3/uL (4.8-10.8)
[2025-07-24 03:50] LABS: Alanine Aminotransferase 25 U/L (0-40); Albumin Level 4.0 g/dL (3.5-5.0); Anion Gap 10 (12-20); Aspartate Amino Transferase 22 U/L (5-37); Blood Urea Nitrogen 23 mg/dL (9-16); Calcium 9.8 mg/dL (8.4-10.2); Carbon Dioxide 25 mmol/L (22-29); Chloride 111 mmol/L (96-108); Creatinine Clr Calc Pharmacy 48.0; Estimated Glomerular Filt Rate 50; Lipase 34 U/L (8-78); Potassium 4.2 mmol/L (3.3-5.1); Sodium 142 mmol/L (135-145); Total Protein 6.7 g/dL (6.5-8.0)
[2025-07-24 04:09] LABS: INTERNATIONAL NORM RATIO 2.2 (0.9-1.1); Prothrombin Time 25.2 SEC (10.9-12.4)
[2025-07-24 04:15] LABS: Alkaline Phosphatase 67 U/L (39-117)
[2025-07-24 06:02] VITALS: BP 130/92; PULSE 73; RESP 16; TEMP 36.7; O2SAT 95
== END 2025-07-24 06:11 | disposition home or self-care (01) ==
LOC: HO.ED 07-24 05:40
PROVIDERS: Physician Assistant; Emergency Provider Emergency Medicine
DX: K59.00 Constipation, unspecified (principal); M54.50 Low back pain, unspecified; I10 Essential (primary) hypertension; Z86.718 Personal history of other venous thrombosis and embolism; Z79.01 Long term (current) use of anticoagulants; Z79.899 Other long term (current) drug therapy
CPT/HCPCS: 36415; 74018; 80053; 83690; 85025; 85610; 99283; 99284

== ENCOUNTER → 2025-07-24 03:09 | Outpatient (BNV) | payer OTHER, SELFPAY | PROVIDERS: Emergency Provider Emergency Medicine; Visit Provider Radiology Diagnostic Radiology | DX: K56.41 Fecal impaction (principal) | CPT/HCPCS: 74018 ==

== ENCOUNTER 2025-07-26 07:36 | Emergency (ER) | payer OTHER, SELFPAY ==
--- OUTSIDE RECORDS SUMMARY | 2025-07-23 11:00 | XMS_ITS | Encounter Summary ---
Author Organization [employer] Address [address] [place] [address] Care Team Providers Care Charger Name Role Phone Veronica Gallardo MD Primary Care Provider [phone] Brien Vargas PharmD Unavailable [phone] Encounter Details Date Type Department Care Team (Latest Contact Info) Description 07/23/2025 11:00 AM EDT Clinical Support [facility] [address] [place] [address] Earline Quinn, RN [address] [place] [address] custodial (current) use of anticoagulants Social History Tobacco Use Types Packs/Day Years Used Date Smoking Tobacco: Never Passive Smoke Exposure: Never Smokeless Tobacco: Never Alcohol Answer Date Recorded How often do [...] AM EDT documented as of this encounter Progress Notes * Earline Quinn RN - 07/23/2025 11:00 AM EDT S: Pt is due for PT/INR today due to hx of DVT's. Pt's target INR is 2-3. This RN spoke with patient who denies any new medications or changes in diet. Pt has been compliant with INR draws. He gets INRs drawn POCT in office with RNs. Pt currently on an INR schedule of every 4 weeks d/t therapeutic INRs and compliance in his care. O: INR today is: 2.1 in office. Pt current dose is: 2mg Tuesday/ 4mg the rest of the week. A: Hx of DVT Risk for blood clot due to sub therapeutic INR P: Pt is to continue the same dose. Pt to repeat INR 08/22/2025. Pt aware of plan. -Earline Quinn RN documented in this encounter Plan of Treatment Upcoming Encounters Date Type Department Care Team (Latest Contact Info) Description 08/22/2025 1:00 PM EST Anticoagulation - Warfarin Visit [facility] [address] [place], [place] [id number] 09/02/2025 11:00 AM EST Office Visit [facility] [place] [address] Veronica Gallardo MD [address] [place], [place] 10/14/2025 10:00 AM EST Medication Management [facility] [address] [place], [place] [phone] Brien Vargas PharmD [address] [place], [place] documented as of this encounter Goals Goal Patient Goal Type Associated Problems Recent Progress Patient-Stated? Author Blood Pressure < 140/90 Blood Pressure 110/60( 025 9:09 AM EDT) No Brien Vargas PharmD documented as of this encounter Procedures Procedure Name Priority Date/Time Associated Diagnosis Comments POCT INR Routine 07/23/2025 10:44 AM EDT custodial (current) use of anticoagulants documented in this encounter Results * POCT INR manually resulted (07/23/2025 10:44 AM EDT) Protime INR 2.1 2 - 3 Blood Capillary blood specimen / Unknown 07/23/2025 10:44 AM EDT Veronica Gallardo MD POINT OF CARE TEST ENTER/EDIT OR DERABLES Final Result documented in this encounter Visit Diagnoses Diagnosis custodial (current) use of anticoagulants Long-term (current) use of anticoagulants documented in this encounter Additional Health Concerns Assessment Noted Time PHQ-9 Depression Total Score: 0 05/30/20 25 9:11 AM EDT documented as of this encounter Care Teams Charger Relationship Specialty Start Date End Date Veronica Gallardo MD [address] [place], [place] PCP - General Family Medicine 08/09/12 Brien Vargas PharmD [address] [place] [address] Pharmacist Internal Medicine 11/30/22 documented as of this encounter
--- NOTE | 2025-07-26 07:39 | ECG_ITS ---
Test Reason : OVERDOSE Blood Pressure : */* mmHG Vent. Rate : 80 BPM Atrial Rate : 80 BPM P-R Int : 144 ms QRS Dur : 82 ms QT Int : 394 ms P-R-T Axes : 52 16 24 degrees QTcB Int : 454 ms Normal sinus rhythm Normal ECG When compared with ECG of 18-Jul-2025 14:03, Vent. rate has increased by 26 bpm T wave amplitude has increased in Anterior leads Referred By: Chaya Ford Electronically Signed By: Amari Mulligan
[2025-07-26 07:45] VITALS: BP 116/60; BP 127/75; PULSE 85; RESP 19; TEMP 36.7; O2SAT 95; O2SAT 96; BMI 26.8
--- NOTE | 2025-07-26 07:51 | ED.OVERDOSE ---
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 He states he is supposed to take the 4mg tablet of coumadin today but forgot and instead to the 1mg tab but took 4 of them about an hour ago - total dose 4mg. He then took an extra dose of his hydralazine 50mg as well about an hour ago. He states he got confused. He is supposed to take it three times a day. He denies SI. States this was an accident. He then notes he feels his legs are tired and shaky and he feels off. BP stable with EMS. He denies dizziness. MD complaint: accidental overdose Onset (ago): hour(s) (1) Timing confirmed by: other (self) Context: Accidental Overdose: medication error Associated symptoms: other Treatments Prior to Arrival: none Related Data Home Medications ?Medication ?Instructions ?Recorded ?Confirmed fluticasone propionate 50 1 spray intranasal DAILY 08/06/20 02/11/25 mcg/actuation nasal spray,suspension acetaminophen 325 mg capsule 650 mg PO Q8H PRN fever or pain 10/19/23 02/11/25 (Tylenol) amlodipine 10 mg tablet 10 mg PO DAILY 05/03/24 02/11/25 atorvastatin 10 mg tablet 10 mg PO BEDTIME 05/03/24 02/11/25 buspirone 30 mg tablet 30 mg PO BID 05/03/24 02/11/25 cholecalciferol (vitamin D3) 50 50 mcg PO DAILY 05/03/24 02/11/25 mcg (2,000 unit) capsule (Vitamin D3) docusate sodium 100 mg capsule 100 mg PO BID 05/03/24 02/11/25 folic acid 1 mg tablet 1 mg PO DAILY 05/03/24 02/11/25 gabapentin 300 mg capsule 300 mg PO DAILY 05/03/24 02/11/25 hydralazine 50 mg tablet 50 mg PO TID 05/03/24 02/11/25 loratadine 10 mg tablet 10 mg PO DAILY 05/03/24 02/11/25 mirtazapine 45 mg tablet 45 mg PO BEDTIME 05/03/24 02/11/25 omeprazole 20 mg capsule,delayed 20 mg PO DAILY 05/03/24 02/11/25 release phenytoin sodium extended 100 mg 100 mg PO TID 05/03/24 02/11/25 capsule thiamine HCl (vitamin B1) 100 mg 100 mg PO QAM 05/03/24 02/11/25 tablet warfarin 1 mg tablet 5 mg PO QWEEK 05/03/24 02/11/25 warfarin 4 mg tablet 4 mg PO DAILY 05/03/24 07/16/24 Previous Rx's ?Medication ?Instructions ?Recorded finasteride 5 mg tablet 5 mg PO DAILY 90 days #90 tabs 01/14/25 terazosin 5 mg capsule 5 mg PO BEDTIME 90 days #90 caps 01/14/25 magnesium citrate 148 ml PO BID PRN constipation 07/24/25 #296 mL polyethylene glycol 3350 17 17 g PO DAILY PRN constipation 2 07/24/25 gram/dose oral powder (Miralax) weeks #238 grams sodium phosphates 19 gram-7 118 ml [place] DAILY PRN constipation 07/24/25 gram/197 mL enema (Fleet Enema #230 mL Extra) Allergies Allergy/AdvReac Type Severity Reaction Status Date / Time ibuprofen (From Motrin) Allergy Intermediate Unknown Verified 07/26/25 07:48 acetaminophen (From Percocet) Allergy Unknown Verified 07/26/25 07:48 oxycodone Allergy Unknown Verified 07/26/25 07:48 Review of Systems Review of Systems: Constitutional : No Fever, No Chills, No Fatigue Cardiovascular : No Chest Pain, No SOB, No Dyspnea on Exertion Respiratory : No Cough, No Sputum Gastrointestinal : No Nausea, No Vomiting, No Diarrhea, No abdominal Pain Genitourinary : No Dysuria, No Urinary Frequency, No Hematuria, Musculoskeletal : No joint pain, No Myalgias, No Joint Swelling Skin : No Skin Lesions, No rash Neuro : pos Weakness, No Numbness, No Dizziness All other systems reviewed and are negative Yes all other systems are reviewed and are negative [facility] Past Medical History Attestation statement: The following information was validated with the patient. Source: old records reviewed Medical History Ascending aortic aneurysm Colon cancer screening Hemorrhoid Aortic aneurysm GERD (gastroesophageal reflux disease) Chronic anticoagulation Alcohol abuse Mood disorder Mood disorder due to a general medical condition Peripheral vascular disease DVT (deep venous thrombosis) Hyperhomocysteinemia CKD (chronic kidney disease) Depression Seizure Surgical History Hx of colonoscopy Hx of hernia repair Family History Family History Paternal Grandmother Cancer Maternal Grandfather Cancer Paternal Aunt Cancer Social History Social History Household Members: None Housing: Apartment Are you a primary critical care unit manager to a significant other at home: No Do you presently have visiting nurse or other home services: No Alcohol intake: current Alcohol intake frequency: does not drink Alcohol type: beer Patient Tobacco Use Status: Never used Tobacco Advance Directives: No Advance Directives Information Provided: Yes Advance Directives Date on File: 10/01/20 service: No Current occupational status: disabled Physical Exam Vital Signs: Vital Signs: Last Vital Signs Temp 98.0 F 07/26/25 07:45 Pulse 93 07/26/25 10:50 Resp 16 07/26/25 10:50 BP 115/76 07/26/25 10:50 Pulse Ox 95 07/26/25 07:45 O2 Del Method Room Air 07/26/25 07:45 BMI result Body Mass Index 26.8 Appearance: Alert. Oriented X3. No acute distress. Eyes: Pupils equal, round and reactive to light. ENT: Pharynx normal. Neck: Normal inspection. Neck supple. CVS: Normal heart rate and rhythm. Pulses normal. Respiratory: No respiratory distress. Breath sounds normal. Abdomen: Soft and nontender. Skin: Skin warm and dry. Normal skin color. Normal skin turgor. Extremities: No lower extremity edema. No calf ttp Neuro: Oriented X 3. No motor deficit. No sensory deficit. CN2-12 intact Medications Administered Discontinued Medications Generic Name Dose Route Start Last Admin Trade Name Freq PRN Reason Stop Dose Admin Sodium Chloride 500 mls @ 500 mls/hr 07/26/25 08:31 07/26/25 09:51 Ns IV 07/26/25 09:30 Infused .Q1H ONE Infusion Medical Decision Making Medical Decision Making MDM Narrative: 70 yo male with PMH of aortic stenosis, HLD, HTN, ascending aortic aneurysm, CKD, depression, DVT on coumadin, seizures here with c/o med error he didn't have med error of coumadin as dosing was the same but he did take an extra hydralazine. He has stable VS. Will hold his lunchtime dose and observe until then. If VS remain stable and no issues will DC home with explicit instructions to hold his hydralazine. I am asking CM to help with VNA for medication care manager. Differential Diagnosis Differential Diagnoses: The differential diagnosis associated with the presentation includes med error Admission/Observation Consideration of admission/observation: Escalation of care including admission/observation considered will observe until lunchtime and if the patient is stable hold his lunchtime hydralazine and DC stable VS repeat BMP at his baseline Consult Healthcare Provider Management of the patient was discussed with: Electric Organ Inspector And Repairer did consult CM for home VNA to help with medications Lab Data [facility] Lab Attestation statement: I reviewed the patient's lab results. 07/26/25 08:11 07/26/25 10:53 Labs: Lab Results 07/26/25 07/26/25 Range/Units 08:11 10:53 WBC 4.2 L (4.8-10.8) X10*3/uL RBC 4.94 (4.60-5.80) X10*6/uL Hgb 16.7 (14.0-18.0) g/dl Hct 48.4 (42.0-52.0) % MCV 98.0 (80.0-98.0) fL MCH 33.8 H (27.0-33.0) pg MCHC 34.5 (31.0-36.0) g/dl RDW 12.5 (11.0-16.0) % Plt Count 86 L (160-400) X10*3/uL MPV 10.0 (9.4-12.4) fL Immature Gran % (Auto) 0.2 (0.0-0.4) % Neut % (Auto) 82.1 H (45-73) % Lymph % (Auto) 8.6 L (20-40) % [place] % (Auto) 6.0 (2-11) % Eos % (Auto) 2.9 (0-4) % Baso % (Auto) 0.2 (0-2) % Lymph # (Auto) 0.4 L (1.2-4.9) X10*3/uL [place] # (Auto) 0.3 (0.1-1.2) X10*3/uL Eos # (Auto) 0.1 (0.0-0.4) X10*3/uL Baso # (Auto) 0.0 (0.0-0.2) X10*3/uL Abs Immat Gran (auto) 0.01 (0.00-0.03) X10*3/uL Absolute Neuts (auto) 3.4 (2.0-8.3) x10*3/uL Absolute Nucleated RBC 0.000 (0.0-0.012) X10*3/uL Nucleated RBC % (auto) 0.0 (0.0-0.2) /100WBC PT 25.9 H (10.9-12.4) SEC INR 2.3 H (0.9-1.1) Sodium 139 140 (135-145) mmol/L Potassium 4.2 4.8 (3.3-5.1) mmol/L Chloride 108 109 H (96-108) mmol/L Carbon Dioxide 22 24 (22-29) mmol/L Anion Gap 13 12 (12-20) BUN 35 H 32 H (9-16) mg/dL Creatinine 1.87 H 1.73 H (0.5-1.4) mg/dL Estim Creat Clear Calc 31.0 33.5 Estimated GFR 36 39 Random Glucose 137 H 108 (60-115) mg/dL Calcium 10.1 10.0 (8.4-10.2) mg/dL Magnesium 2.0 (1.6-2.6) mg/dL Total Bilirubin 0.4 (0.0-1.0) mg/dL Direct Bilirubin 0.2 (0.0-0.5) mg/dL AST 18 (5-37) U/L ALT 20 (0-40) U/L Alkaline Phosphatase 78 (39-117) U/L Total Protein 7.0 (6.5-8.0) g/dL Albumin 4.1 (3.5-5.0) g/dL Independent Interpretation I performed an independent interpretation of an: EKG Interpretation: Rate: 80 Rhythm: NSR [place]: normal Normal P waves. Normal NAINA. Normal QRS complex. ST T wave : normal no ANTONI qTC: 454 prior studies: no acute ischemia The study has been interpreted contemporaneously by me. . Independent Historian Clinical information obtained from an independent historian. History obtained from or confirmed by: EMS External Record Review External record reviewed: Inpatient record and Outpatient record Discharge Plan Discharge Clinical Impression: Accidental medication error Patient Disposition: Home, Self-Care Instructions: Adult Overdose (ED) Additional Instructions: labs reassuring DO NOT TAKE YOUR LUNCHTIME HYDRALAZINE you can then resume all normal medications tonight return for any worsening symptoms or concerns. Prescriptions: No Action fluticasone propionate 50 mcg/actuation spray,suspension 1 spray intranasal DAILY acetaminophen [Tylenol] 325 mg capsule 650 mg PO Q8H PRN (Reason: fever or pain) amlodipine 10 mg tablet 10 mg PO DAILY atorvastatin 10 mg tablet 10 mg PO BEDTIME buspirone 30 mg tablet 30 mg PO BID thiamine HCl (vitamin B1) 100 mg tablet 100 mg PO QAM phenytoin sodium extended 100 mg capsule 100 mg PO TID warfarin 4 mg tablet 4 mg PO DAILY docusate sodium 100 mg capsule 100 mg PO BID gabapentin 300 mg capsule 300 mg PO DAILY omeprazole 20 mg capsule,delayed release(DR/EC) 20 mg PO DAILY mirtazapine 45 mg tablet 45 mg PO BEDTIME folic acid 1 mg tablet 1 mg PO DAILY hydralazine 50 mg tablet 50 mg PO TID warfarin 1 mg tablet 5 mg PO QWEEK Rx Instructions: 5mg on loratadine 10 mg tablet 10 mg PO DAILY cholecalciferol (vitamin D3) [Vitamin D3] 50 mcg (2,000 unit) capsule 50 mcg PO DAILY magnesium citrate Solution 148 ml PO BID PRN (Reason: constipation) Qty: 296 0RF polyethylene glycol 3350 [Miralax] 17 gram/dose powder 17 g PO DAILY PRN (Reason: constipation) 14 Days Qty: 238 0RF Fleet Enema Extra 19-7 gram/197 mL enema 118 ml [place] DAILY PRN (Reason: constipation) Qty: 230 0RF terazosin 5 mg capsule 5 mg PO BEDTIME 90 Days Qty: 90 3RF finasteride 5 mg tablet 5 mg PO DAILY 90 Days Qty: 90 3RF Referrals: [facility] [Outside] Print Language: Ug[place]
[2025-07-26 08:14] LABS: MANUAL DIFF FLAG NO
[2025-07-26 08:18] LABS: Hematocrit 48.4 % (42.0-52.0); Hemoglobin 16.7 g/dl (14.0-18.0); Imm Gran Abs Auto 0.01 X10*3/uL (0.00-0.03); Imm Gran Pct Auto 0.2 % (0.0-0.4); Lymphocytes Absolute Auto 0.4 X10*3/uL (1.2-4.9); Mean Corpuscular HGB Conc 34.5 g/dl (31.0-36.0); Mean Corpuscular Hemoglobin 33.8 pg (27.0-33.0); Mean Corpuscular Volume 98.0 fL (80.0-98.0); NRBC Abs Auto 0.000 X10*3/uL (0.0-0.012); NRBC Pct Auto 0.0 /100WBC (0.0-0.2); Red Blood Count 4.94 X10*6/uL (4.60-5.80); White Blood Count 4.2 X10*3/uL (4.8-10.8)
[2025-07-26 08:19] LABS: Platelet Count 86 X10*3/uL (160-400)
[2025-07-26 08:24] LABS: INTERNATIONAL NORM RATIO 2.3 (0.9-1.1); Prothrombin Time 25.9 SEC (10.9-12.4)
--- OUTSIDE RECORDS SUMMARY | 2025-07-26 08:27 | XMS_ITS | Encounter Summary ---
Author Organization [employer] Address [address] [facility] [address] 7t [place] [address] Care Team Providers Care Oral Pathologist Name Role Phone Veronica Gallardo MD Primary Care Provider [phone] Brien Vargas PharmD Unavailable [phone] Encounter Details Date Type Department Care Team (Latest Contact Info) Description 07/23/2025 Travel Social History Tobacco Use Types Packs/Day Years [...] 1:00 PM EST Anticoagulation - Warfarin Visit [address] [address] 09/02/2025 11:00 AM EST Office Visit [address] [address] Veronica Gallardo MD [address] [place] [address] 10/14/2025 10:00 AM EST Medication Management [address] [address] Brien Vargas PharmD [address] [place] [address] documented as of this encounter Goals Goal [...] documented as of this encounter Care Teams Oral Pathologist Relationship Specialty Start Date End Date Veronica Gallardo MD [address] [place] [address] PCP - General Family Medicine 08/09/12 Brien Vargas, PallaviD [address] [place] [address] Pharmacist Internal Medicine 11/30/22 documented as of this encounter
--- OUTSIDE RECORDS SUMMARY | 2025-07-26 08:28 | XMS_ITS | Encounter Summary ---
Author Organization [employer] Address 75 [facility] 7t [place] [address] Care Team Providers Care Arts Education Teacher Name Role Phone Veronica Gallardo MD Primary Care Provider [phone] Brien Vargas PharmD Unavailable [phone] Encounter Details Date Type Department Care Team (Late st Contact Info) Description 06/27/2023 Telephone [facility] MEDICINE [address] [place] [address] [phone] Veronica Gallardo MD [address] [place] [address] Social History Tobacco Use Types Packs/Day Years [...] 1:00 PM EST Anticoagulation - Warfarin Visit [facility] [address] [place] [address] [phone] 09/02/2025 11:00 AM EST Office Visit [address] [phone] Veronica Gallardo MD [address] [place] [address] 10/14/2025 10:00 AM EST Medication Management [facility] [address] [place] [address] Brien Vargas, PharmD [address] [place] [address] documented as of this encounter Goals Goal [...] documented as of this encounter Care Teams Arts Education Teacher Relationship Specialty Start Date End Date Veronica Gallardo MD [address] [place] [address] PCP - General Family Medicine 08/09/12 Brien Vargas, PharmD [address] [place] [address] Pharmacist Internal Medicine 11/30/22 documented as of this encounter
--- OUTSIDE RECORDS SUMMARY | 2025-07-26 08:28 | XMS_ITS | Encounter Summary ---
Author Organization [employer] Address [address] [facility] [address] 7t [place] [address] Care Team Providers Care Boomswing Operator Name Role Phone Veronica Gallardo MD Primary Care Provider [phone] Brien Vargas PharmD Unavailable [phone] Reason for Visit * Reason Comments Med Refill Encounter Details Date Type Department Care Team (Late st Contact Info) Description 10/12/2023 Refill [facility] [address] [place], [place] [phone] Veronica Gallardo MD [address] [place], [place] [phone] Back pain with left-sided radiculopathy Social History [...] 1:00 PM EST Anticoagulation - Warfarin Visit [facility] [address] [place] [address] 09/02/2025 11:00 AM EST Office Visit [address] [address] Veronica Gallardo MD [address] [place] [address] 10/14/2025 10:00 AM EST Medication Management [address] [address] Brien Vargas PharmD [address] [place] [address] documented as of this encounter Goals Goal [...] documented as of this encounter Care Teams Boomswing Operator Relationship Specialty Start Date End Date Veronica Gallardo MD [address] [place] [address] PCP - General Family Medicine 08/09/12 Brien Vargas, PharmD [address] [place] [address] Pharmacist Internal Medicine 11/30/22 documented as of this encounter
--- OUTSIDE RECORDS SUMMARY | 2025-07-26 08:28 | XMS_ITS | Encounter Summary ---
Author Organization [employer] Address [address] [facility] [address] 7t [place] [address] Care Team Providers Care Cellophane Bag Machine Operator Name Role Phone Veronica Gallardo MD Primary Care Provider [phone] Brien Vargas PharmD Unavailable [phone] Reason for Visit * Reason Comments Med Refill Encounter Details Date Type Department Care Team (Late st Contact Info) Description 08/14/2023 Refill [facility] [address] [place], [place] [phone] Brien Vargas, PharmD [address] [place], [place] [phone] Essential hypertension Social History Tobacco Use Types [...] t he electric, gas, oil or water [employer] threatened to shut off services in your [...] 1:00 PM EST Anticoagulation - Warfarin Visit [facility] [address] [place] [address] 09/02/2025 11:00 AM EST Office Visit [facility] [address] [place] [address] Veronica Gallardo MD [address] [place] [address] 10/14/2025 10:00 AM EST Medication Management [facility] [address] [place] [address] Brien Vargas PharmD [address] [place] [address] documented as of this encounter Goals Goal Patient Goal Type Associated Problems Recent Progress Patient-Stated? Author Blood Pressure < 140/90 Blood Pressure 110/60( 025 9:09 AM EDT) No Brien Vargas PharmD documented as of this encounter Visit Diagnoses Diagnosis Essential hypertension Unspecified essential hypertension documented in this encounter Additional Health Concerns Assessment Noted Time PHQ-9 Depression Total Score: 0 06/15/20 23 11:18 AM EDT documented as of this encounter Care Teams Cellophane Bag Machine Operator Relationship Specialty Start Date End Date Veronica Gallardo MD [address] [place] [address] PCP - General Family Medicine 08/09/12 Brien Vargas, PallaviD [address] [place] [address] Pharmacist Internal Medicine 11/30/22 documented as of this encounter
--- OUTSIDE RECORDS SUMMARY | 2025-07-26 08:28 | XMS_ITS | Encounter Summary ---
Author Organization [employer] Address [address] [facility] [address] 7t [place] [address] Care Team Providers Care Chemical Production Technician Name Role Phone Veronica Gallardo MD Primary Care Provider [phone] Brien Vargas PharmD Unavailable [phone] Encounter Details Date Type Department Care Team (Late st Contact Info) Description 10/12/2022 Orders Only [facility] [address] [place], [place] [phone] Deya Barber LPN Social History Tobacco Use [...] 1:00 PM EST Anticoagulation - Warfarin Visit [facility] [address] [place] [address] [phone] 09/02/2025 11:00 AM EST Office Visit [facility] [address] [place] [address] [phone] Veronica Gallardo MD [address] [place] [address] [phone] 10/14/2025 10:00 AM EST Medication Management [facility] [address] [place], [place] [phone] Brien Vargas, PharmD 230 [place] [address] documented as of this encounter Visit Diagnoses Not on filedocumented in this encounter Care Teams Chemical Production Technician Relationship Specialty Start Date End Date Veronica Gallardo MD [address] [place] [address] [phone] PCP - General Family Medicine 08/09/12 Brien Vargas, Efrain [address] [place] [address] [phone] Pharmacist Internal Medicine 11/30/22 documented as of this encounter
--- OUTSIDE RECORDS SUMMARY | 2025-07-26 08:28 | XMS_ITS | Encounter Summary ---
Author Organization [employer] Address [address] [facility] 7t [place] [address] Care Team Providers Care Confectionery Drops Machine Operator Name Role Phone Veronica Gallardo MD Primary Care Provider [phone] Brien Vargas PharmD Unavailable [phone] Encounter Details Date Type Department Care Team (Late st Contact Info) Description 09/09/2022 Orders Only [facility] [address] [place] [address] Veronica Gallardo MD [address] [place] [address] Social History Tobacco Use Types Packs/Day Years [...] 1:00 PM EST Anticoagulation - Warfarin Visit [address] [phone] 09/02/2025 11:00 AM EST Office Visit [address] [phone] Veronica Gallardo MD [address] [place] [address] 10/14/2025 10:00 AM EST Medication Management [facility] [address] [place] [address] Brien Vargas, PharmD [address] [place] [address] documented as of this encounter Visit Diagnoses Not on filedocumented in this encounter Care Teams Confectionery Drops Machine Operator Relationship Specialty Start Date End Date Veronica Gallardo MD [address] [place] [address] PCP - General Family Medicine 08/09/12 Brien Vargas, PharmD [address] [place] [address] Pharmacist Internal Medicine 11/30/22 documented as of this encounter
--- OUTSIDE RECORDS SUMMARY | 2025-07-26 08:29 | XMS_ITS | Encounter Summary ---
Author Organization [employer] Address 75 [facility] 7t [place] [address] Care Team Providers Care Merchandise Shopper Name Role Phone Veronica Gallardo MD Primary Care Provider [phone] Brien Vargas PharmD Unavailable [phone] Reason for Referral * Consultation (Routine) - Canceled Specialty Diagnoses / Procedures Referred By Contac t Referred To Contact Pharmacy Diagnoses Hypertension, unspecified type Veronica Gallardo MD [address] [place] [address] Phone: tel: fax: Referral ID Status Reason Start Date Expiration Date V isits Requested Visits Authorized [id number] Canceled Consult and Treat 10/12/2024 10/12/2025 6 6 Encounter Details Date Type Department Care Team (Late st Contact Info) Description 10/12/2024 Orders Only [facility] [address] [place] [address] [phone] Veronica Gallardo MD [address] [place], [place] [phone] Hypertension, unspecified type (Primary Dx) Social History [...] 1:00 PM EST Anticoagulation - Warfarin Visit [facility] [address] [place] [address] 09/02/2025 11:00 AM EST Office Visit [address] [address] Veronica Gallardo MD [address] [place] [address] 10/14/2025 10:00 AM EST Medication Management [facility] [address] [place] [address] Brien Vargas, PharmD [address] [place] [address] Scheduled Referrals Name Type Priority Associated Diagnoses [...] documented as of this encounter Care Teams Merchandise Shopper Relationship Specialty Start Date End Date Veronica Gallardo MD [address] [place] [address] PCP - General Family Medicine 08/09/12 Brien Vargas, PharmD [address] [place] [address] Pharmacist Internal Medicine 11/30/22 documented as of this encounter
--- OUTSIDE RECORDS SUMMARY | 2025-07-26 08:29 | XMS_ITS | Encounter Summary ---
Author Organization [employer] Address [address] [facility] [address] [place] [address] Care Team Providers Care Sales Support Coordinator Name Role Phone Veronica Gallardo MD Primary Care Provider [phone] Brien Vargas PharmD Unavailable [phone] Encounter Details Date Type Department Care Team (Late st Contact Info) Description 11/04/2023 Orders Only [facility] 230 [place], [place] [phone] Veronica Gallardo MD [address] [place], [place] [phone] Alcohol use disorder, moderate, in early remission [...] 1:00 PM EST Anticoagulation - Warfarin Visit [address] [address] 09/02/2025 11:00 AM EST Office Visit [address] [address] Veronica Gallardo MD [address] [place] [address] 10/14/2025 10:00 AM EST Medication Management [address] [address] Brien Vargas, PharmD [address] [place] [address] documented as of this encounter Goals Goal Patient Goal Type Associated Problems Recent Progress Patient-Stated? Author Blood Pressure < 140/90 Blood Pressure 110/60( 025 9:09 AM EDT) No Brien Vargas, PharmD documented as of this encounter Visit Diagnoses Diagnosis Alcohol use disorder, moderate, in early remission (CMS/HCC) ([facility])- Primary documented in this encounter Additional Health Concerns Assessment Noted Time PHQ-9 Depression Total Score: 0 03/24/20 23 11:18 AM EDT documented as of this encounter Care Teams Sales Support Coordinator Relationship Specialty Start Date End Date Veronica Gallardo MD [address] [place] [address] PCP - General Family Medicine 08/09/12 Brien Vargas, PharmD [address] [place] [address] Pharmacist Internal Medicine 11/30/22 documented as of this encounter
--- OUTSIDE RECORDS SUMMARY | 2025-07-26 08:29 | XMS_ITS | Encounter Summary ---
Author Organization [employer] Address [address] [facility] [address] [place] [address] Care Team Providers Care Linux Engineer Name Role Phone Veronica Gallardo MD Primary Care Provider [phone] Brien Vargas PharmD Unavailable [phone] Encounter Details Date Type Department Care Team (Late st Contact Info) Description 04/25/2024 Orders Only [facility] [address] [place], [place] [phone] Veronica Gallardo MD [address] [place], [place] [phone] Hypertension, unspecified type Social History Tobacco Use [...] the past 12 months, has t he [employer], gas, oil or water company threatened to [...] 1:00 PM EST Anticoagulation - Warfarin Visit [address] [address] 09/02/2025 11:00 AM EST Office Visit [address] [address] Veronica Gallardo MD [address] [place] [address] 10/14/2025 10:00 AM EST Medication Management [address] [address] Brien Vargas, PharmD [address] [place] [address] documented as of this encounter Goals Goal [...] AM EDT Narrative 05/03/2024 10:18 AM EDT [address] [address] XRay Report Signed Patient: Chriss Munoz MR#: [id number] : 1955 Acct:[id number] Age/Sex: 68 / M ADM Date: 05/03/24 Loc: HO.ED Attending Dr: Ordering Physician: Flo Fleming MD Date of Service: 05/03/24 Procedure(s): XR chest 1V Accession Number(s): [id number] cc: Flo Fleming MD; Veronica Gallardo MD [...] in OV> 05/03/24 1015 DD/ 0930 TD/TT: [employer] Consultant: PD Procedure Note Donotuseinterpreter, Image - 05/03/2024 [place] [address] XRay Report Signed Patient: Kristina MunozR#: [id number] : 1955cct:[id number] Age/Sex: 68 / MADM Date: 05/03/24 Loc: .ED Attending Dr: Ordering Physician: Flo Fleming MD Date of Service: 05/03/24 Procedure(s): XR chest 1V Accession Number(s): [id number] cc: Flo Fleming MD; Veronica Gallardo MD [...] in OV> 05/03/24 1015 DD/ 0930 TD/TT: [employer] Consultant: PD [facility] External Provider IMG XR PROCEDURES Final Result documented in this encounter Visit Diagnoses Diagnosis Hypertension, unspecified type documented in this encounter Additional Health Concerns Assessment Noted Time PHQ-9 Depression Total Score: 0 03/24/20 23 11:18 AM EDT documented as of this encounter Care Teams Linux Engineer Relationship Specialty Start Date End Date Veronica Gallardo MD [address] [place] [address] PCP - General Family Medicine 08/09/12 Brien Vargas, Efrain [address] [place] [address] Pharmacist Internal Medicine 11/30/22 documented as of this encounter
--- OUTSIDE RECORDS SUMMARY | 2025-07-26 08:29 | XMS_ITS | Clinical Summary ---
Author Organization [employer] Address [address] [place] [address] Care Team Providers Care Cadd Manager Name Role Phone Veronica Gallardo MD Primary Care Provider [phone] Brien Vargas PharmD Unavailable [phone] Allergies Active Allergy Reactions Criticality Noted Date Comments Acetaminophen 03/23/2012 Ibuprofen 09/16/2022 Oxycodone 03/23/2012 Oxycodone-Acetaminophen 09/16/2022 Medications * This document contains information received from the source organization and may not represent a complete record from that organization. busPIRone (Buspar) 30 MG tablet TAKE 1 TABLET BY MOUTH TWICE DAILY IN THE MORNING AND IN THE EVENING 3 Active mirtazapine (Remeron) 45 MG tablet Take 45 mg by mouth at bedtime. 3 Active acetaminophen (Tylenol 8 Hour) 650 MG ER tabletIndications: Intercostal pain TAKE 1 TABLET BY MOUTH EVERY 8 HOURS NEEDED FOR MILD PAIN FOR UP TO 10 DAYS, DO NOT BREAK, CRUSH, DISSOLVE OR CHEW 30 tablet 3 Active naltrexone (Depade) 50 MG tablet TAKE 1 TABLET BY MOUTH ONCE DAILY. WITH BREAD. 30 tablet 11 3 Active hydrocortisone 2.5 % cream APPLY TOPICALLY TWICE DAILY 20 g 1 4 Active finasteride (Proscar) 5 MG tablet Take 5 mg by mouth in the morning. 4 Active terazosin (Hytrin) 5 MG capsule Take 5 mg by mouth at bedtime. 4 Active docusate sodium (Colace) 100 MG capsuleIndications :Chronic idiopathic constipation TAKE 1 CAPSULE BY MOUTH TWICE DAILY 180 capsule 1 4 Active hydrOXYzine pamoate (Vistaril) 25 MG capsule Take 1 capsule (25 mg) by mouth every 6 (six) hours if needed for itching. 60 capsule 1 4 Active D3 Super Strength 50 MCG (1999 UT) capsule TAKE 1 CAPSULE BY MOUTH EVERY MORNING 90 capsule 3 4 Active atorvastatin (Lipitor) 10 MG tablet TAKE 1 TABLET BY MOUTH AT BEDTIME 90 tablet 3 5 Active warfarin (Coumadin) 1 MG tablet TAKE DIRECTED BY COUMADIN CLINIC 60 tablet 3 5 Active warfarin (Coumadin) 4 MG tablet TAKE 1 TABLET BY MOUTH EVERY DAY DIRECTED 30 tablet 3 5 Active phenytoin ER (Dilantin) 100 MG capsule TAKE 3 CAPSULES BY MOUTH EVERY DAY IN THE MORNING 270 capsule 1 5 Active hydrALAZINE (Apresoline) 50 MG tabletIndications: Hypertension, unspecified type TAKE 1 TABLET BY MOUTH THREE TIMES DAILY IN THE MORNING, EVENING, AND BEDTIME 270 tablet 1 5 Active gabapentin (Neurontin) 300 MG capsuleIndications :Back pain with left-sided radiculopathy TAKE 1 CAPSULE BY MOUTH AT BEDTIME NEEDED FOR PAIN 30 capsule 1 5 Active clobetasol (Temovate) 0.05 % ointment Apply topically 2 times daily. 60 g 5 Active amLODIPine (Norvasc) 10 MG tabletIndications: Hypertension, unspecified type TAKE 1 TABLET BY MOUTH AT BEDTIME 90 tablet 3 5 Active loratadine (Claritin) 10 MG tablet TAKE 1 TABLET BY MOUTH EVERY MORNING FOR ALLERGIES 90 tablet 1 5 Active omeprazole (PriLOSEC) [address] capsuleIndications :Intercostal pain TAKE 1 CAPSULE BY MOUTH TWICE DAILY IN THE MORNING AND AT BEDTIME 180 capsule 1 5 Active folic acid (Folvite) 1 MG tablet TAKE 1 TABLET BY MOUTH EVERY MORNING 90 tablet 1 5 Active thiamine (Vitamin B-1) 100 MG tablet TAKE 1 TABLET BY MOUTH EVERY MORNING 90 tablet 1 5 Active Active Problems Problem Noted Date Diagnosed Date [...] (12/12/2023 3:50 PM EST): - followed by [facility] urology - most recent renal US in Jun 2023 - continue surveillance Non-rheumatic aortic stenosis 06/03/2023 Assessment & Plan (06/03/2025 8:19 AM EDT): - most recent transthoracic echocardiogram on 09/06/24 showed mild to moderate aortic stenosis, and possible bicuspid aortic valve - continue following up with packer Assessment & Plan (12/12/2023 3:47 PM EST): - most recent transthoracic echocardiogram on 09/05/23 showing mild-moderate aortic stenosis and trivial aortic regurgitation - continue following management recommendations by packer Benign prostatic hyperplasia 03/28/2023 Overview (03/28/2023): -previously following with Urologist, last seen in 2018&2019 -will check PSA -will refer him back to Urologist for further evaluation Assessment & Plan (06/03/2025 8:25 AM EDT): - followed by [facility] urology, last seen in Jul 2024 - PSA has been normal level - continue terazosin and finasteride Assessment & Plan (06/21/2024 11:09 AM EDT): - followed by [facility] urology, last seen in Nov 2023 - PSA has been normal level - continue tamsulosin Assessment & Plan (12/12/2023 3:49 PM EST): - followed by [facility] urology, last seen in Nov 2023 - PSA has been normal level - continue tamsulosin Assessment & Plan (07/15/2023 6:41 AM EDT): - previously followed by urologist, last seen in 2017 - recently seen again by [facility] urology in May 2023 - CT in [...] EDT): -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 -Due to Coumadin use, Rifampin was contraindicated. Pt was started on Isoniazid, but the treatment had to be interrupted multiple times because of elevated LFT. Pt was drinking alcohol excessively during the treatment. -His case was presented to [facility], and pt had a direct observation therapy. 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 -Due to Coumadin use, Rifampin was contraindicated. Pt was started on Isoniazid, but the treatment had to be interrupted multiple times because of elevated LFT. Pt was drinking alcohol excessively during the treatment. -His case was presented to [facility], and pt had a direct observation therapy. -He finally completed 12 weeks of 900mg INH/900mg Rifapentine/ B6 50mg on 02/14/2019 History of syphilis 11/19/2022 History of shingles 11/19/2022 Major depression 11/09/2022 History of alcohol use disorder 11/09/2022 Assessment & Plan (11/19/2022 5:42 PM EST): - graduated from [facility] clinic - continue naltrexone - pt is aware of recovery support resources at [facility] Alcohol use disorder, modera te, in early [...] (06/03/2025 8:25 AM EDT): - followed by house coordinator, last seen in Jul 2024 - normal erythropoietin level - all other work-up has been normal Assessment & Plan (06/21/2024 11:09 AM EDT): - followed by house coordinator, last seen in Jul 2023 - normal erythropoietin level - all other work-up has been normal Assessment & Plan (12/12/2023 3:53 PM EST): - followed by house coordinator, last seen in Jul 2023 - normal erythropoietin level - all other work-up has been normal Assessment & Plan (07/15/2023 6:41 AM EDT): - evaluated by house coordinator, last seen in January 2023 - normal erythropoietin level - all other work-up has been normal - US was ordered by house coordinator; advised to complete evaluation Assessment & Plan (11/19/2022 5:28 PM EST): - evaluated by house coordinator, last seen on 07/13/22 - normal erythropoietin level - all other work-up has been normal - most recent hematocrit 45 on 09/16/22 - US was ordered by house coordinator; advised to complete evaluation sample coordinator (current) use of anticoagulants 2021 Assessment & Plan (05/31/2025 12:19 AM EDT): - indication: recurrent / chronic DVT, question of hypercoagulable disorder (elevated homocysteine) -managed by [facility] -Most recent INR-->3.4 on 03/18/23 -Current [...] of hypercoagulable disorder (elevated homocysteine) -managed by [facility] -Most recent INR-->3.4 on 03/18/23 -Current [...] of hypercoagulable disorder (elevated homocysteine) -managed by [facility] -Most recent INR-->3.4 on 03/18/23 -Current [...] -Emphasized the importance of keeping appt with packer; pt verbalized understanding Assessment & Plan (12/12/2023 3:07 PM EST): -Most recent TTE on 09/05/23 Normal EF, mild-mod aortic stenosis and trivial aortic regurgitation with possible bicuspid aortic valve. Ascending aorta at 42 mm -Continue working on risk factor management -Emphasized the importance of keeping appt with packer; pt verbalized understanding Assessment & Plan (07/15/2023 6:32 AM EDT): - Echo on 03/31/22 EF 60-65% showed severely calcified aortic valve, stenosis and mild regurgitation (in HFCCA). - Emphasized the importance of keeping appt with packer; pt verbalized understanding Assessment & Plan (11/09/2022 11:55 AM EST): - ECHO on 03/31/22 EF 60-65% showed severely calcified aortic valve, stenosis and mild regurgitation. 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 Alcohol use 11/16/2018 Stage 3 chronic kidney disease (CMS/HCC) 016 Assessment & Plan (06/03/2025 8:24 AM EDT): -Patient has missed several appointments with sas sql developer, upcoming appt -09/10/16 Renal US wnl, no renal artery stenosis. -Hx elevated K with ACEI -Avoid NSAIDs / nephrotoxic drugs. -Use renal dosing. -Emphasized the importance of keeping appt Assessment & Plan (06/21/2024 11:09 AM EDT): -Referred back to sas sql developer after last visit in Jul 2023 -Patient had an appointment in [facility], which was rescheduled for 01/09/24 -09/10/16 Renal US wnl, no renal artery stenosis. -Hx elevated K with ACEI -Avoid NSAIDs / nephrotoxic drugs. -Use renal dosing. -Emphasized the importance of keeping appt Assessment & Plan (12/12/2023 3:52 PM EST): -Referred back to sas sql developer after last visit in Jul 2023 -Patient had an appointment in [facility], which was rescheduled for 01/09/24 -09/10/16 Renal US wnl, no renal artery stenosis. -Hx elevated K with ACEI -Avoid NSAIDs / nephrotoxic drugs. -Use renal dosing. -Emphasized the importance of keeping appt Assessment & Plan (07/15/2023 6:39 AM EDT): -Followed by sas sql developer, last seen ? -Mildly elevated K. Monitor closely with ACEI. -09/10/16 Renal US wnl, no renal artery stenosis. -Avoid NSAIDs / nephrotoxic drugs. -Use renal dosing. -Emphasized the importance of keeping appt Assessment & Plan (03/24/2023 12:38 PM EDT): -Followed by sas sql developer, last seen -Currently on lisinopril 5 mg daily. -Mildly elevated K. Monitor closely with ACEI. -Most recent INR-->3.0 on 11/09/22 -09/10/16 Renal US wnl, no renal artery stenosis. -Avoid NSAIDs / nephrotoxic drugs. -Use renal dosing. Assessment & Plan (11/19/2022 6:02 PM EST): -Followed by sas sql developer, last seen -Currently on lisinopril 5 mg daily. -Mildly elevated K. Monitor closely with ACEI. -Most recent INR-->3.0 on 11/09/22 -09/10/16 Renal US wnl, no renal artery stenosis. -Avoid NSAIDs / nephrotoxic drugs. -Use renal dosing. Hypertension 09/02/2015 Assessment & Plan (06/03/2025 8:21 AM EDT): -Goal BP < 130/80 per ACC/AHA guideline -BP at goal -Comanaged with packer, pharmD, and sas sql developer -Continue working on life style modifications. -Continue amlodipine 10 mg daily -Continue hydralazine 50 mg tid -(Continue terazosin 5 mg daily for BPH with LUTS) --Treatment history: -Lisinopril was decreased to 2.5 mg daily after AAYUSH with hyperkalemia secondary to renal hypoperfusion in a setting of CKD in summer 2016. Completely discontinued by sas sql developer -Most recent echo: 09/06/24 EF 60-65%. Mild - mod . Thoracic aortic aneurysm 4.2 cm Assessment & Plan (06/21/2024 11:09 AM EDT): -Goal BP < 140/90 per JNC-8, < 130/80 per ACC/AHA guideline -BP not at goal , ?adherence to medication -Comanaged with packer, pharmD, and sas sql developer -Continue working on life style modifications. -Continue amlodipine 10 mg daily -Continue hydralazine 50 mg tid --Treatment history: -Lisinopril was decreased to 2.5 mg daily after AAYUSH with hyperkalemia secondary to renal hypoperfusion in a setting of CKD in summer 2016. Completely discontinued by sas sql developer -Most recent echo: 09/05/23 EF 60-65%. Mild . Thoracic aortic aneurysm 4.2 cm - Follow up in 3 mo or sooner if any problem arises Assessment & Plan (03/13/2024 10:47 AM EDT): -Goal BP < 140/90 per JNC-8, < 130/80 per ACC/AHA guideline -BP not at goal , ?adherence to medication -Comanaged with packer, pharmD, and sas sql developer -Continue working on life style modifications. -Continue amlodipine 10 mg daily -Continue hydralazine 50 mg tid --Treatment history: -Lisinopril was decreased to 2.5 mg daily after AAYUSH with hyperkalemia secondary to renal hypoperfusion in a setting of CKD in summer 2016. Completely discontinued by sas sql developer -Most recent echo: 09/05/23 EF 60-65%. Mild . Thoracic aortic aneurysm 4.2 cm - Follow up in 3 mo or sooner if any problem arises Assessment & Plan (12/12/2023 3:05 PM EST): -Goal BP < 140/90 per JNC-8, < 130/80 per ACC/AHA guideline -BP not at goal , ?adherence to medication -Comanaged with packer, pharmD, and sas sql developer -Continue working on life style modifications. -Continue amlodipine 10 mg daily -Continue hydralazine 50 mg tid --Treatment history: -Lisinopril was decreased to 2.5 mg daily after AAYUSH with hyperkalemia secondary to renal hypoperfusion in a setting of CKD in summer 2016. Completely discontinued by sas sql developer -Most recent echo: 09/05/23 EF 60-65%. Mild . Thoracic aortic aneurysm 4.2 cm - Follow up in 3 mo or sooner if any problem arises Assessment & Plan (07/15/2023 6:34 AM EDT): -Goal BP < 140/90 per JNC-8, < 130/80 per ACC/AHA guideline -BP not at goal , ?adherence to medication -Comanaged with packer, pharmD, and sas sql developer -Continue working on life style modifications. -Continue amlodipine 10 mg daily -Continue hydralazine 25 mg tid --Treatment history: -Lisinopril was decreased to 2.5 mg daily after AAYUSH with hyperkalemia secondary to renal hypoperfusion in a setting of CKD in summer 2016. Completely discontinued by sas sql developer -Most recent echo: 03/31/22 EF 60-65%. Mild [...] We need to confirm this dosing with packer. --Treatment history: -Lisinopril was decreased to 2.5 [...] We need to confirm this dosing with packer. --Treatment history: -Lisinopril was decreased to 2.5 [...] EDT): Hx of elevated homocysteine. Evaluated by house coordinator for hypercoagulable disorder. Evaluation is incomplete because he was on Coumadin. He was recommended indefinite warfarin treatment. Assessment & Plan (03/28/2023 1:04 PM EDT): Hx of elevated homocysteine. Evaluated by house coordinator for hypercoagulable disorder. Evaluation is incomplete because he was on Coumadin. He was recommended indefinite warfarin treatment. Depressive disorder 11/24/2012 Assessment & Plan (12/12/2023 3:53 PM EST): - S provider : [facility] - Hx suicidal ideation - Lost his in 2014 due to pancreatic cancer, and his psychosocial health worsened - Continue buspirone and mirtazapine as prescribed by psychiatarist Assessment & Plan (2023 10:43 AM EDT): - S provider : [facility] - Hx suicidal ideation - Lost his in 2014 due to pancreatic cancer, and his psychosocial health worsened - Continue buspirone and mirtazapine as prescribed by psychiatarist Assessment & Plan (03/24/2023 12:38 PM EDT): - [facility] provider : Francisco Javier Andre Hx suicidal ideation - Lost his in 2014 due to pancreatic cancer, and his psychosocial health worsened - Continue buspirone and mirtazapine as prescribed by psychiatarist Assessment & Plan (11/19/2022 6:15 PM EST): - [facility] provider : Francisco Javier Andre Hx [...] and warfarin dose adjustment are managed by [facility] Green team nurses -Most recent INR 2.3 on 06/18/23 -Continue following with [facility] Green team nurse for anticoagulation management Assessment & Plan (06/21/2024 11:08 AM EDT): -Recurrent and chronic DVT, mostly left side -Chronic left common femoral vein -Continue warfarin -INR monitoring and warfarin dose adjustment are managed by [facility] Green team nurses -Most recent INR 2.3 on 06/18/23 -Continue following with [facility] Green team nurse for anticoagulation management Assessment & Plan (03/13/2024 10:46 AM EDT): -Recurrent and chronic DVT, mostly left side -Chronic left common femoral vein -Continue warfarin -INR monitoring and warfarin dose adjustment are managed by [facility] Green team nurses -Most recent INR 2.3 on 06/18/23 -Continue following with [facility] Green team nurse for anticoagulation management Assessment & Plan (12/12/2023 3:04 PM EST): -Recurrent and chronic DVT, mostly left side -Chronic left common femoral vein -Continue warfarin -INR monitoring and warfarin dose adjustment are managed by [facility] Green team nurses -Most recent INR 2.3 on 06/18/23 -Continue following with [facility] Green team nurse for anticoagulation management Assessment & Plan (07/15/2023 6:37 AM EDT): -Recurrent and chronic DVT, mostly left side -Chronic left common femoral vein -Continue warfarin -INR monitoring and warfarin dose adjustment are managed by [facility] Green team nurses -Most recent INR 2.3 on 06/18/23 -Continue following with [facility] Green team nurse for anticoagulation management Assessment & Plan (03/24/2023 12:37 PM EDT): -Recurrent and chronic DVT, mostly left side -Chronic left common femoral vein -Continue warfarin -INR monitoring and warfarin dose adjustment are managed by [facility] Green team nurses -Most recent INR-->3.0 on 11/09/22 -Continue following with [facility] Green team nurse for anticoagulation management Assessment & Plan (11/19/2022 6:00 PM EST): -Recurrent and chronic DVT, mostly left side -Chronic left common femoral vein -Continue warfarin -INR monitoring and warfarin dose adjustment are managed by [facility] Green team nurses -Most recent INR-->3.0 on 11/09/22 -Continue following with [facility] Leon team nurse for anticoagulation management Seizure disorder ([facility]) 03/23/2012 Assessment & Plan (05/31/2025 12:21 AM [...] Encounters Date Type Department Care Team Description 07/23/2025 11:00 AM EDT Clinical Support [address] [address] Earline Quinn RN half-way (current) use of anticoagulants 07/23/2025 Travel 07/18/2025 Orders Only GENERIC EXTERNAL DATA DEPARTMENT Provider, Generic External Data 07/15/2025 Orders Only GENERIC EXTERNAL DATA DEPARTMENT Provider, Generic External Data 06/26/2025 Refill [facility] [address] [place] [address] Veronica Gallardo MD Hypertension, unspecified type; Intercostal pain 06/21/2025 10:30 AM EDT Clinical Support [facility] [place] [address] Earlnie Quinn, RN half-way (current) use of anticoagulants 06/21/2025 Travel 05/30/2025 9:00 AM EDT Office Visit [facility] [place] [address] Veronica Gallardo MD Hypertension, unspecified type (Primary [...] femoral vein of left lower extremity (CMS/HCC); half-way (current) use of anticoagulants; Peripheral vascular disease (CMS/HCC) 05/30/2025 Travel 05/30/2025 Refill [facility] [address] Veronica Gallardo MD Back pain with left-sided radiculopathy 05/29/2025 Telephone [facility] [place] [address] Veronica Gallardo MD chart prep 05/24/2025 10:00 AM EDT Clinical Support [facility] [place] [address] Earline Quinn RN sample coordinator (current) use of anticoagulants 05/24/2025 Travel 05/11/2025 Orders Only GENERIC EXTERNAL DATA DEPARTMENT Provider, Generic External Data 05/06/2025 Telephone [facility] [place] [address] Veronica Gallardo MD 05/05/2025 Refill [facility] [place] [address] Veronica Gallardo MD Hypertension, unspecified type 05/03/2025 10:00 AM EDT Office Visit [facility] [address] [place] [address] Kilo Julien MD Tinmary ellen nomary ann (Primary Dx) 05/03/2025 Travel 04/27/2025 Refill [facility] [address] [place] [address] Veronica Gallardo MD 04/26/2025 10:30 AM EDT Anticoagulation - Warfarin Visit [facility] [address] [place] [address] Sarah Prieto RN half-way (current) use of anticoagulants 04/26/2025 Travel from Last 3 Months Immunizations Immunization Administration [...] 1:00 PM EST Anticoagulation - Warfarin Visit [address] [address] 09/02/2025 11:00 AM EST Office Visit [address] [address] Veronica Gallardo MD [address] [place] [address] 10/14/2025 10:00 AM EST Medication Management [address] [address] Brien Vargas, PharmD [address] [place] [id number] Health Maintenance Due Date Last Done Comments [...] POCT INR Routine 07/23/2025 10:44 AM EDT half-way (current) use of anticoagulants HIGH SENSITIVITY TROPONIN I Routine 07/18/2025 4:42 PM EDT XR CHEST 2 VIEWS Routine 07/18/2025 2:50 PM EDT PSA, TOTAL Routine 07/15/2025 10:20 AM EDT POCT INR Routine 06/21/2025 10:48 AM EDT half-way (current) use of anticoagulants POCT INR Routine 05/24/2025 9:37 AM EDT sample coordinator (current) use of anticoagulants HIGH SENSITIVITY TROPONIN I Routine 05/11/2025 6:58 PM EDT XR CHEST 2 VIEWS Routine 05/11/2025 5:00 PM EDT POCT INR Routine 04/26/2025 10:37 AM EDT half-way (current) use of anticoagulants HEPATITIS C AB W/REFL TO HCV RNA, QN, PCR Routine 04/15/2025 9:10 AM EDT Screening for diabetes mellitus LIPID PANEL WITH REFLEX TO DIRECT LDL Routine 04/15/2025 9:10 AM EDT Dyslipidemia from Last 3 Months or Most Recently Relevant to Health Maintenance Results * POCT INR manually resulted (07/23/2025 10:44 AM EDT) Only the most recent of4 resultswithin the time period is included. Protime INR 2.1 2 - 3 Blood Capillary blood specimen / Unknown 07/23/2025 10:44 AM EDT Veronica Gallardo MD POINT OF CARE TEST ENTER/EDIT OR DERABLES Final Result * High Sensitivity Troponin I (07/18/2025 4:42 PM EDT) Only the most recent of2 resultswithin the time period is included. TROPONIN I HIGH SENSITIVITY 18.7 <3.5 - 35.0 ng/L [facility] Comment:The Santana high sens itivity Troponin-I results should beused in conjunction with other diagnostic information suchas ECG, clinical observations and information, and patientsymptoms to aid in the diagnosis of ND. 07/18/2025 4:42 PM EDT 07/18/2025 4:45 PM EDT us Generic External Data Provider LAB BLOOD ORDERAB LES Final Result Performing Organization Address City/State/[facility] Co de Phone Number [facility] [address] [place] [phone] * XR Chest 2 Views (07/18/2025 2:50 PM EDT) Only the most recent of2 resultswithin the time period is included. Anatomical Region Laterality Modality Chest Radiographic Svitlana ging 07/18/2025 2:50 PM EDT Narrative 07/18/2025 3:05 PM EDT [address] [address] XRay Report Signed Patient: Chriss Munoz MR#: [id number] : 1955 Acct:[id number] Age/Sex: 70 / M ADM Date: 07/18/25 Loc: .ED Attending Dr: Ordering Physician: Freddy Craig DO Date of Service: 07/18/25 Procedure(s): XR chest 2V Accession Number(s): [id number] cc: Veronica Gallardo MD; Freddy Craig DO Reason for Exam: chest pain EXAMINATION: XR CHEST CLINICAL INFORMATION: chest pain COMPARISON: 05/11/2025, 09/07/2024 TECHNIQUE: 2 views of the chest were obtained. FINDINGS: The cardiac, hilar, and mediastinal contours are normal. Aortic mural calcifications. The lungs demonstrate mild hyperaeration and prominence of the background interstitial markings, similar to prior studies. There is subsegmental minor atelectasis in both lung bases. Minimal blunting of the posterior costophrenic sulci could indicate tiny effusions. There is no pneumothorax. There is no focal osseous or soft tissue abnormality. XR/XR chest 2V IMPRESSION: 1. Chronically increased background interstitial markings, suggesting chronic interstitial lung changes. A subtle component of interstitial edema is not excluded. 2. Subtle blunting of the posterior costophrenic sulci, possibly indicating tiny effusions. 3. No consolidative pneumonia. Electronically signed by: Rex Lindo MD 07/18/2025 03:02 PM EDT RP Dictated By: Rex Lindo MD Signed By: <Electronically signed by Rex Lindo MD in OV> 07/18/25 1502 DD/ 1450 TD/TT: 07/18/25 1454 Utilization Specialist: Procedure Note Donotuseinterpreter, Image - 07/18/[address] [address] XRay Report Signed Patient: Lenard Munoz#: [id number] : [id number]:[id number] Age/Sex: 70 / MADM Date: 07/18/25 Loc: .ED Attending Dr: Ordering Physician: Freddy Craig DO Date of Service: 07/18/25 Procedure(s): XR chest 2V Accession Number(s): [id number] cc: Veronica Gallardo MD; Freddy Craig DO Reason for Exam: chest pain EXAMINATION: XR CHEST CLINICAL INFORMATION: chest pain COMPARISON: 05/11/2025, 09/07/2024 TECHNIQUE: 2 views of the chest were obtained. FINDINGS: The cardiac, hilar, and mediastinal contours are normal. Aortic mural calcifications. The lungs demonstrate mild hyperaeration and prominence of the background interstitial markings, similar to prior studies. There is subsegmental minor atelectasis in both lung bases. Minimal blunting of the posterior costophrenic sulci could indicate tiny effusions. There is no pneumothorax. There is no focal osseous or soft tissue abnormality. XR/XR chest 2V IMPRESSION: 1. Chronically increased background interstitial markings, suggesting chronic interstitial lung changes. A subtle component of interstitial edema is not excluded. 2. Subtle blunting of the posterior costophrenic sulci, possibly indicating tiny effusions. 3. No consolidative pneumonia. Electronically signed by: Rex Lindo MD 07/18/2025 03:02 PM EDT RP Dictated By: Rex Lindo MD Signed By: <Electronically signed by Rex Lindo MD in OV> 07/18/25 1502 DD/ 1450 TD/TT: 07/18/25 1454 Utilization Specialist: [facility] External Provider IMG XR PROCEDURES Final Result * PSA,Total (07/15/2025 10:20 AM EDT) Prostate Specific Antigen 2.82 <0.05 - 4.0 ng/mL [facility] Comment:PSA methodology: Shanika Beck i ChemiluminescentMicroparticle Immunoassay (CMIA) 07/15/2025 10:2 0 AM EDT 07/15/2025 10:20 AM EDT Generic External Data Provider LAB BLOOD ORDERAB LES Final Result [facility] [address] [place] [address] [phone] * Lipid Panel with Reflex to Direct LDL (04/15/2025 9:10 AM EDT) Triglycerides 107 <150 mg/dL [facility] Comment:Desirable Triglyceri de: less than 150 mg/dLBorderline High Triglyceride 150-199 mg/dLHigh Triglyceride: 200-499 mg/dLVery High Triglyceride: greater than or equal to 5OO mg/dL Cholesterol 168 <200 mg/dL [facility] Comment:Desirable Cholestero l: less than 200 mg/dLBorderline High Cholesterol: 200-239 mg/dLHigh Cholesterol: greater than 239 mg/dL LDL Cholesterol Calculated 91 <100 mg/dL [facility] Comment:Desirable LDL: less than 100 mg/dLNear Optimal/Above Optimal LDL: 110- 129 mg/dLBorderline High LDL: 130-159 mg/dLHigh LDL: 160-189 mg/dLVery High LDL: greater than or equal to 190 mg/dL HDL Cholesterol 56 >40 mg/dL [facility] Comment:Desirable HDL: great er than 40 mg/dL Note: This HDL assay may give artificially low results in patients with liver disease. Blood 04/15/2025 9:10 AM EDT 04/15/2025 11:17 AM EDT us Veronica Gallardo MD LAB BLOOD ORDERABLES Final Resul t Performing Organization Address City/[facility] Co de Phone Number [facility] [address] [place] [phone] * Hepatitis C Antibody with Reflex to HCV, RNA, Quantitative, Real-Time PCR (04/15/2025 9:10 AM EDT) Hepatitis C Antibody Nonreactive Nonreactive [facility] Comment:Antibodies to HCV no t detected; does not exclude early acuteHCV infection. Venous blood specimen / Unknown 04/15/2025 9:10 AM EDT 04/15/2025 11:17 AM EDT us Veronica Gallardo MD LAB BLOOD ORDERABLES Final Resul t Performing Organization Address City/[facility]/ZIP Co de Phone Number [facility] [address] [place] [phone] from Last 3 Months or Most Recently Relevant to Health Maintenance Insurance [employer] (HMO D-SNP) JOSE TAPIA [id number] Care Teams Cadd Manager Relationship Specialty Start Date End Date Veronica Gallardo MD [address] [place] [address] PCP - General Family Medicine 08/09/12 Brien Vargas, PharmD [address] [place] [address] Pharmacist Internal Medicine 11/30/22
--- OUTSIDE RECORDS SUMMARY | 2025-07-26 08:29 | XMS_ITS | Encounter Summary ---
Author Organization [employer] Address [address] [place] [address] Care Team Providers Care Photo Finish Photographer Name Role Phone Veronica Gallardo MD Primary Care Provider [phone] Brien Vargas PharmD Unavailable [phone] Encounter Details Date Type Department Care Team (Late st Contact Info) Description 04/02/2025 Orders Only [facility] [address] [place], [place] [phone] Veronica Gallardo MD [address] [place], [place] [phone] Hypertension, unspecified type (Primary Dx); Stage 3 [...] 1:00 PM EST Anticoagulation - Warfarin Visit [address] [address] 09/02/2025 11:00 AM EST Office Visit [address] [address] Veronica Gallardo MD [address] [place] [phone] 10/14/2025 10:00 AM EST Medication Management [address] [address] Brien Vargas, PharmD [address] [place] [phone] Scheduled Orders Name Type Priority Associated Diagnoses [...] EDT) Hepatitis B Surface Ag Negative Negative [facility] Venous blood specimen / Unknown 04/15/2025 9:10 AM EDT 04/15/2025 11:17 AM EDT us Veronica Gallardo MD LAB BLOOD ORDERABLES Final Resul t Performing Organization Address [facility] Co de Phone Number [facility] [address] [place] [phone] * HIV-1/2 Antigen and Antibodies, Fourth Generation, with Reflexes (04/15/2025 9:10 AM EDT) HIV AB/AG Nonreactive Nonreactive [facility] Comment:HIV-1 p24 Ag and/or HIV-1/HIV-2 Ab not detected.A test result that is nonreactive does not exclude thepossibility of exposure to or infection with HIV-1 and/orHIV-2. Nonreactive results in this assay for individualswith prior exposure to HIV-1 and/or HIV-2 may be due toantigen and antibody levels that are below the limit ofdetection of this assay.The PropagenixniApp47 HIV Ag/Ab Combo assay result andsupplemental assay results should be interpreted inconjunction with the patient's clinical presentation,history and other laboratory results. If the results areinconsistent with clinical evidence, additional testing issuggested to confirm the result. Venous blood specimen / Unknown 04/15/2025 9:10 AM EDT 04/15/2025 11:17 AM EDT us Veronica Gallardo MD LAB BLOOD ORDERABLES Final Resul t Performing Organization Address City/[facility] Co de Phone Number [facility] [address] [place] [phone] * Hepatitis C Antibody with Reflex to HCV, RNA, Quantitative, Real-Time PCR (04/15/2025 9:10 AM EDT) Hepatitis C Antibody Nonreactive Nonreactive [facility] Comment:Antibodies to HCV no t detected; does not exclude early acuteHCV infection. Venous blood specimen / Unknown 04/15/2025 9:10 AM EDT 04/15/2025 11:17 AM EDT Veronica Gallardo MD LAB BLOOD ORDERABLES Final Resul t Performing Organization Address City/[facility]/ZIP Co de Phone Number [facility] [address] [place] [phone] * Syphilis Screen (04/15/2025 9:10 AM EDT) Syphilis Screen Nonreactive Nonreactive [facility] 04/15/2025 9:10 AM EDT 04/15/2025 6:02 PM EDT us Veronica Gallardo MD LAB BLOOD ORDERABLES Final Resul t Performing Organization Address [facility] [[email or web address]] de Phone Number [facility] [address] [place] [phone] * Vitamin B12 (Cobalamin) and Folate Panel, Serum (04/15/2025 9:10 AM EDT) Vitamin B12 224 200 - 900 pg/mL [facility] Comment:NORMAL 200-900 PG/ML INDETERMINATE 160-199 PG/ML DEFICIENT < 160 PG/ML Folate 12.8 > or = 4.0 ng/mL [facility] Comment:Reference Values:> o r = 4.0 ng/mL< 4.0 ng/mL suggests folate deficiency Methotrexate, aminopterin and folinic acid(leucovorin) are chemotherapeutic agents whose molecularstructures are similar to folate; therefore, the Architectfolate assay cannot be used for patients using these drugs. Blood 04/15/2025 9:10 AM EDT 04/15/2025 11:17 AM EDT Veronica Gallardo MD LAB BLOOD ORDERABLES Final Resul t Performing Organization Address [facility] Co de Phone Number [facility] [address] [place] [phone] * Vitamin D, 25-Hydroxy, Total, Immunoassay (04/15/2025 9:10 AM EDT) Vitamin D 25-OH Total 42.5 >30 ng/mL [facility] Comment: Health Based Reference Values*< 20 ng/mL Cmusjqluy29-75 ng/mL Insufficient> 30 ng/mL Sufficient*Ken COLEMAN. N [...] MD LAB BLOOD ORDERABLES Final Resul t [facility] [address] [place] [phone] * Lipid Panel with Reflex to Direct LDL (04/15/2025 9:10 AM EDT) Triglycerides 107 <150 mg/dL [facility] Comment:Desirable Triglyceri de: less than 150 mg/dLBorderline High Triglyceride 150-199 mg/dLHigh Triglyceride: 200-499 mg/dLVery High Triglyceride: greater than or equal to 5OO mg/dL Cholesterol 168 <200 mg/dL [facility] Comment:Desirable Cholestero l: less than 200 mg/dLBorderline High Cholesterol: 200-239 mg/dLHigh Cholesterol: greater than 239 mg/dL LDL Cholesterol Calculated 91 <100 mg/dL [facility] Comment:Desirable LDL: less than 100 mg/dLNear Optimal/Above Optimal LDL: 110- 129 mg/dLBorderline High LDL: 130-159 mg/dLHigh LDL: 160-189 mg/dLVery High LDL: greater than or equal to 190 mg/dL HDL Cholesterol 56 >40 mg/dL [facility] Comment:Desirable HDL: great er than 40 mg/dL Note: This HDL assay may give artificially low results in patients with liver disease. Blood 04/15/2025 9:10 AM EDT 04/15/2025 11:17 AM EDT us Veronica Gallardo MD LAB BLOOD ORDERABLES Final Resul t Performing Organization Address [facility] Co de Phone Number [facility] [address] [place] [phone] * Hemoglobin A1c (04/15/2025 9:10 AM EDT) Hemoglobin A1c 5.3 <6.0 % [facility] Comment:Hemoglobin A1C Refer ence Range Adults: 4.8 - 6.0 % Non diabetic: < 6.0 % Goal: < 7.0 %Additional Action Suggested: > 8.0 %Note: Hemoglobin A1c results are invalid for patients with abnormal amounts of HbF. Blood transfusions may impact the HbA1c concentration in the patient sample. Estimated Average Glucose 105 mg/dL [facility] Comment:eAG = Estimated ave rage glucose which is %A1C expressed asaverage glucose, using the formula of the B8A-VsmflbpPfrgxuo Glucose study (ADAG), Diabetes Care, Vol.31,#8,May. 2007 Blood Venous blood specimen / Unknown 04/15/2025 9:10 AM EDT 04/15/2025 11:17 AM EDT us Veronica Gallardo MD LAB BLOOD ORDERABLES Final Resul t Performing Organization Address City/[facility] Co de Phone Number [facility] [address] [place] [phone] * TSH with Reflex to Free T4 (04/15/2025 9:10 AM EDT) TSH reflex Free T4 2.74 0.32 - 4.0 uIU/mL [facility] Blood 04/15/2025 9:10 AM EDT 04/15/2025 11:17 AM EDT us Veronica Gallardo MD LAB BLOOD ORDERABLES Final Resul t [facility] [address] [place] [phone] documented in this encounter Visit Diagnoses Diagnosis Hypertension, unspecified type- Primary Stage 3 chronic kidney disease, unspecified whether stage 3a or 3b CKD ([facility]) ([facility]) Erythrocytosis Polycythemia, secondary Dyslipidemia Other and unspecified hyperlipidemia Vitamin D deficiency Alcohol use disorder, moderate, in early remission ([facility]) ([facility]) Screening for diabetes mellitus Routine screening for STI (sexually transmitted infection) Screening examination for venereal disease documented in this encounter Additional Health Concerns Assessment Noted Time PHQ-9 Depression Total Score: 0 03/24/20 23 11:18 AM EDT documented as of this encounter Care Teams Photo Finish Photographer Relationship Specialty Start Date End Date Veronica Gallardo MD [address] [place] [address] PCP - General Family Medicine 08/09/12 Brien Vargas, PallaviD [address] [place] [address] Pharmacist Internal Medicine 11/30/22 documented as of this encounter
--- OUTSIDE RECORDS SUMMARY | 2025-07-26 08:29 | XMS_ITS | Encounter Summary ---
Author Organization [employer] Address [address] [facility] [address] [place] [address] Care Team Providers Care Satellite Dish Installer Name Role Phone Veronica Gallardo MD Primary Care Provider [phone] Brien Vargas PharmD Unavailable [phone] Reason for Visit * Reason Comments Med Refill Encounter Details Date Type Department Care Team (Late st Contact Info) Description 01/14/2023 Refill [facility] [address] [place] [phone] Estefania Gilbert MD [address] [place] [phone] Social History Tobacco Use Types Packs/Day Years [...] 1:00 PM EST Anticoagulation - Warfarin Visit [facility] [address] [place] [phone] 09/02/2025 11:00 AM EST Office Visit [address] [address] Veronica Gallardo MD [address] [place], [place] [phone] 10/14/2025 10:00 AM EST Medication Management [facility] [address] [facility] [place], [place] [phone] Brien Vargas, Efrain [address] [place], [place] [phone] documented as of this encounter Goals Goal Patient Goal Type Associated Problems Recent Progress Patient-Stated? Author Blood Pressure < 140/90 Blood Pressure 110/60( 025 9:09 AM EDT) No Brien Vargas, Efrain documented as of this encounter Visit Diagnoses Not on filedocumented in this encounter Care Teams Satellite Dish Installer Relationship Specialty Start Date End Date Veronica Gallardo MD [address] [place] [address] [phone] PCP - General Family Medicine 08/09/12 Brien Vargas, PallaviD [address] [place] [address] [phone] Pharmacist Internal Medicine 11/30/22 documented as of this encounter
[2025-07-26 08:30] LABS: Alanine Aminotransferase 20 U/L (0-40); Albumin Level 4.1 g/dL (3.5-5.0); Alkaline Phosphatase 78 U/L (39-117); Anion Gap 13 (12-20); Aspartate Amino Transferase 18 U/L (5-37); Blood Urea Nitrogen 35 mg/dL (9-16); Calcium 10.1 mg/dL (8.4-10.2); Carbon Dioxide 22 mmol/L (22-29); Chloride 108 mmol/L (96-108); Creatinine Clr Calc Pharmacy 31.0; Estimated Glomerular Filt Rate 36; Magnesium 2.0 mg/dL (1.6-2.6); Potassium 4.2 mmol/L (3.3-5.1); Sodium 139 mmol/L (135-145); Total Protein 7.0 g/dL (6.5-8.0)
--- NOTE | 2025-07-26 10:43 | MHC.CM.ED ---
Received case management consult from Dr Ford. Patient came to the ER after mixing up his coumadin and BP meds. Work up still pending. Patient has a history of Mood disorder and multiple medical issues. Referral made to [facility]. Patient aware and agreeable. Continue to monitor for for d/c needs.
[2025-07-26 10:50] VITALS: BP 115/76; PULSE 93; RESP 16
[2025-07-26 11:13] LABS: Anion Gap 12 (12-20); Blood Urea Nitrogen 32 mg/dL (9-16); Calcium 10.0 mg/dL (8.4-10.2); Carbon Dioxide 24 mmol/L (22-29); Chloride 109 mmol/L (96-108); Creatinine Clr Calc Pharmacy 33.5; Estimated Glomerular Filt Rate 39; Potassium 4.8 mmol/L (3.3-5.1); Sodium 140 mmol/L (135-145)
[2025-07-26 11:57] VITALS: BP 115/69; PULSE 81; RESP 18; TEMP 36.5; O2SAT 99
== END 2025-07-26 11:58 | disposition home or self-care (01) ==
PROVIDERS: Emergency Provider Emergency Medicine
DX: T45.511A Poisoning by anticoagulants, accidental (unintentional), initial encounter (principal); G25.1 Drug-induced tremor; Y92.009 Unspecified place in unspecified non-institutional (private) residence as the place of occurrence of the external cause; R11.0 Nausea; Z79.899 Other long term (current) drug therapy
CPT/HCPCS: 36415; 80048; 80076; 83735; 85025; 85610; 93005; 96360; 99284

== ENCOUNTER → 2025-07-26 07:39 | Outpatient (BNV) | payer OTHER, SELFPAY | PROVIDERS: Emergency Provider Emergency Medicine; Visit Provider Internal Medicine Cardiovascular Disease | DX: T46.5X5A Adverse effect of other antihypertensive drugs, initial encounter (principal) | CPT/HCPCS: 93010 ==

== ENCOUNTER 2025-07-28 12:30 | Emergency (ER) | payer OTHER, SELFPAY ==
--- OUTSIDE RECORDS SUMMARY | 2025-07-23 11:00 | XMS_ITS | Encounter Summary ---
Author Organization [employer] Address [address] [place] [address] Care Team Providers Care Culturist Name Role Phone Veronica Gallardo MD Primary Care Provider [phone] Brien Vargas PharmD Unavailable [phone] Encounter Details Date Type Department Care Team (Latest Contact Info) Description 07/23/2025 11:00 AM EDT Clinical Support [facility] [address] [place] [address] Earline Quinn, RN [address] [place] [address] [facility] (current) use of anticoagulants Social History Tobacco [...] 1:00 PM EST Anticoagulation - Warfarin Visit [facility] [address] [place], [place] [phone] 09/02/2025 11:00 AM EST Office Visit [facility] [place] [address] Veronica Gallardo MD [address] [place], [place] 10/14/2025 10:00 AM EST Medication Management [facility] [address] [place], [place] [phone] Brien Vargas PharmD [address] [place], [place] documented as of this encounter Goals Goal Patient Goal Type Associated Problems Recent Progress Patient-Stated? Author Blood Pressure < 140/90 Blood Pressure 110/60( 025 9:09 AM EDT) No Brien Vargas PharmD documented as of this encounter Procedures Procedure Name Priority Date/Time Associated Diagnosis Comments POCT INR Routine 07/23/2025 10:44 AM EDT [facility] (current) use of anticoagulants documented in this encounter Results * POCT INR manually resulted (07/23/2025 10:44 AM EDT) Protime INR 2.1 2 - 3 Blood Capillary blood specimen / Unknown 07/23/2025 10:44 AM EDT Veronica Gallardo MD POINT OF CARE TEST ENTER/EDIT OR DERABLES Final Result documented in this encounter Visit Diagnoses Diagnosis [facility] (current) use of anticoagulants Long-term (current) use of anticoagulants documented in this encounter Additional Health Concerns Assessment Noted Time PHQ-9 Depression Total Score: 0 05/30/20 25 9:11 AM EDT documented as of this encounter Care Teams Culturist Relationship Specialty Start Date End Date Veronica Gallardo MD [address] [place], [place] PCP - General Family Medicine 08/09/12 Brien Vargas PharmD [address] [place] [address] Pharmacist Internal Medicine 11/30/22 documented as of this encounter
[2025-07-28 12:47] VITALS: BP 150/96; BP 172/102; PULSE 64; PULSE 87; RESP 16; TEMP 36.4; O2SAT 94; O2SAT 97; BMI 23.9
--- NOTE | 2025-07-28 12:59 | ED.GENADULT ---
HPI - General Adult General Chief complaint: General Medical Stated complaint: FEELS UNWELL/BP ISSUE, 172/102 PER EMS Time Seen by Provider: 07/28/25 12:47 Source: EMS and healthcare network consultant Mode of arrival: EMS Limitations: language barrier History of Present Illness ED Provider: HPI narrative: Patient states he measures his blood pressure at home, he did not take hydralazine because he was seen here recently and then he took too many hydralazine medications and his blood pressure was elevated 180/100 and he started feeling panicky and feeling pressure over his chest, he states he has lives with himself, he has [facility]NA that comes to the house 5 times a week for 3 hours a day from what he tells me, and it sounds like he may need help with overall medications. He does endorse significant anxiety, and this is his 4th ER visit this month. Related Data Home Medications ?Medication ?Instructions ?Recorded ?Confirmed fluticasone propionate 50 1 spray intranasal DAILY 08/06/20 02/11/25 mcg/actuation nasal spray,suspension acetaminophen 325 mg capsule 650 mg PO Q8H PRN fever or pain 10/19/23 02/11/25 (Tylenol) amlodipine 10 mg tablet 10 mg PO DAILY 05/03/24 02/11/25 atorvastatin 10 mg tablet 10 mg PO BEDTIME 05/03/24 02/11/25 buspirone 30 mg tablet 30 mg PO BID 05/03/24 02/11/25 cholecalciferol (vitamin D3) 50 50 mcg PO DAILY 05/03/24 02/11/25 mcg (2,000 unit) capsule (Vitamin D3) docusate sodium 100 mg capsule 100 mg PO BID 05/03/24 02/11/25 folic acid 1 mg tablet 1 mg PO DAILY 05/03/24 02/11/25 gabapentin 300 mg capsule 300 mg PO DAILY 05/03/24 02/11/25 hydralazine 50 mg tablet 50 mg PO TID 05/03/24 02/11/25 loratadine 10 mg tablet 10 mg PO DAILY 05/03/24 02/11/25 mirtazapine 45 mg tablet 45 mg PO BEDTIME 05/03/24 02/11/25 omeprazole 20 mg capsule,delayed 20 mg PO DAILY 05/03/24 02/11/25 release phenytoin sodium extended 100 mg 100 mg PO TID 05/03/24 02/11/25 capsule thiamine HCl (vitamin B1) 100 mg 100 mg PO QAM 05/03/24 02/11/25 tablet warfarin 1 mg tablet 5 mg PO QWEEK 05/03/24 02/11/25 warfarin 4 mg tablet 4 mg PO DAILY 05/03/24 07/16/24 Previous Rx's ?Medication ?Instructions ?Recorded finasteride 5 mg tablet 5 mg PO DAILY 90 days #90 tabs 01/14/25 terazosin 5 mg capsule 5 mg PO BEDTIME 90 days #90 caps 01/14/25 magnesium citrate 148 ml PO BID PRN constipation 07/24/25 #296 mL polyethylene glycol 3350 17 17 g PO DAILY PRN constipation 2 07/24/25 gram/dose oral powder (Miralax) weeks #238 grams sodium phosphates 19 gram-7 118 ml MN DAILY PRN constipation 07/24/25 gram/197 mL enema (Fleet Enema #230 mL Extra) Allergies Allergy/AdvReac Type Severity Reaction Status Date / Time ibuprofen (From Motrin) Allergy Intermediate Unknown Verified 07/28/25 12:49 acetaminophen (From Percocet) Allergy Unknown Verified 07/28/25 12:49 oxycodone Allergy Unknown Verified 07/28/25 12:49 Review of Systems Constitutional: Constitutional: Reports as per [facility] Past Medical History Medical History Ascending aortic aneurysm Colon cancer screening Hemorrhoid Aortic aneurysm GERD (gastroesophageal reflux disease) Chronic anticoagulation Alcohol abuse Mood disorder Mood disorder due to a general medical condition Peripheral vascular disease DVT (deep venous thrombosis) Hyperhomocysteinemia CKD (chronic kidney disease) Depression Seizure Surgical History Hx of colonoscopy Hx of hernia repair Family History Family History Paternal Grandmother Cancer Maternal Grandfather Cancer Paternal Aunt Cancer Social History Social History Household Members: None Housing: Apartment Are you a primary direct care staffer to a significant other at home: No Do you presently have visiting nurse or other home services: No Alcohol intake: current Alcohol intake frequency: does not drink Alcohol type: beer Patient Tobacco Use Status: Never used Tobacco Advance Directives: No Advance Directives Information Provided: Yes Advance Directives Date on File: 10/01/20 Do you have a plan to hurt others: No Plan service: No Current occupational status: disabled Physical Exam ED Vital Signs: Vital Signs - 24 hr 07/28/25 12:47 Temperature 97.5 F Pulse Rate 64 Respiratory Rate 16 Blood Pressure 150/96 H Pulse Oximetry 94 Oxygen Delivery Method Room Air BMI result Body Mass Index 23.9 Const Other: General: ?Appears of stated age ? ?CV: RRR, no obvious murmurs appreciated ? ?Resp: ?No wheezing rales rhonchi no stridor moving air well ? Abd: ?Bowel sounds are present, no tenderness no rebound no rigidity ? ?MSK: FROM, strength 5/5 all extremities ? Skin: Warm, dry, intact, ? ?Neuro: ?Alert and oriented x3, moving upper and lower extremities symmetrically, no obvious facial asymmetry noted, cranial nerves 2-12 intact Medical Decision Making Medical Decision Making MDM Narrative: 1:45 PM 07/28/2025 (Dr. Freddy Craig): Patient is endorsing anxiety and he is anxious about his health and blood pressure, he was seen here 2 days ago when he took too many hydralazine medications and was concerned about that and then sounds like he has skipped his medication today and his blood pressure is elevated, we spoke quite a bit about his blood pressure, he states when he sees the number that is high he starts having just pressure and because he lives by himself he gets very anxious, as this is his 4th ER visit this month, I spoke to the patient I am going to get case management involved because prior to this he did not have so many ER visits and I am wondering whether this is an opportunity for some type of intervention, no SI or HI In the past month he has had multiple workup including cardiac enzymes, KUB, chest x-ray EKGs, I will obtain ECG today just to make sure there was no underlying ACS, I reassured him about his blood pressure even without management has been coming down, he is on warfarin 3:32 PM 07/28/2025 (Dr. Freddy Craig): Case management we will be reaching out to his community RN tomorrow about frequent ER visits and possible additional home support Independent Interpretation I performed an independent interpretation of an: EKG (61 beats per minute otherwise normal ECG without dysrhythmia, AV mickie blocks or ST-T changes to suspect underlying ACS, my independent interpretation) Discharge Plan Discharge Clinical Impression: Hypertension Patient Disposition: Home, Self-Care Instructions: Chronic Hypertension (ED) Additional Instructions: As I have discussed with the you in the emergency department, I would like you not to get too anxious about the numbers for blood pressure, but for something to consider if your upper number is over 200 and lower number is over 110 then you if checked it 3 times then you can come to the ER, otherwise she is taking medications on regular basis, do EKG has been reassuring, I reviewed your prior workup here you have had blood work, cardiac enzymes, chest x-ray, I would like you to contact your PCP for follow up [place] lo he discutido con usted en el departamento de emergencias, me gustar?a que no se preocupe demasiado por los n?meros de la presi?n arterial, alyssa para algo a considerar si greer n?staci superior es mayor de 200 y el n?staci inferior es mayor de 110, entonces si lo revisa 3 veces, puede venir a la beatris de emergencias, de lo contrario, jerod est? tomando medicamentos de forma regular, hacer un ECG campbell sido tranquilizador, eddie? greer evaluaci?n anterior aqu?, se campbell hecho an?lisis de pancho, enzimas card?acas, radiograf?a de t?rax, me gustar?a que se comunique con greer m?dico de cabecera para seguimiento Prescriptions: No Action fluticasone propionate 50 mcg/actuation spray,suspension 1 spray intranasal DAILY acetaminophen [Tylenol] 325 mg capsule 650 mg PO Q8H PRN (Reason: fever or pain) amlodipine 10 mg tablet 10 mg PO DAILY atorvastatin 10 mg tablet 10 mg PO BEDTIME buspirone 30 mg tablet 30 mg PO BID thiamine HCl (vitamin B1) 100 mg tablet 100 mg PO QAM phenytoin sodium extended 100 mg capsule 100 mg PO TID warfarin 4 mg tablet 4 mg PO DAILY docusate sodium 100 mg capsule 100 mg PO BID gabapentin 300 mg capsule 300 mg PO DAILY omeprazole 20 mg capsule,delayed release(DR/EC) 20 mg PO DAILY mirtazapine 45 mg tablet 45 mg PO BEDTIME folic acid 1 mg tablet 1 mg PO DAILY hydralazine 50 mg tablet 50 mg PO TID warfarin 1 mg tablet 5 mg PO QWEEK Rx Instructions: 5mg on loratadine 10 mg tablet 10 mg PO DAILY cholecalciferol (vitamin D3) [Vitamin D3] 50 mcg (2,000 unit) capsule 50 mcg PO DAILY magnesium citrate Solution 148 ml PO BID PRN (Reason: constipation) Qty: 296 0RF polyethylene glycol 3350 [Miralax] 17 gram/dose powder 17 g PO DAILY PRN (Reason: constipation) 14 Days Qty: 238 0RF Fleet Enema Extra 19-7 gram/197 mL enema 118 ml MN DAILY PRN (Reason: constipation) Qty: 230 0RF terazosin 5 mg capsule 5 mg PO BEDTIME 90 Days Qty: 90 3RF finasteride 5 mg tablet 5 mg PO DAILY 90 Days Qty: 90 3RF Print Language: Nepali
--- NOTE | 2025-07-28 13:01 | ECG_ITS ---
Test Reason : weakness Blood Pressure : */* mmHG Vent. Rate : 61 BPM Atrial Rate : 61 BPM P-R Int : 148 ms QRS Dur : 76 ms QT Int : 412 ms P-R-T Axes : 38 13 54 degrees QTcB Int : 414 ms Normal sinus rhythm with sinus arrhythmia Normal ECG When compared with ECG of 26-Jul-2025 07:56, No significant change was found Referred By: Freddy Craig Electronically Signed By: MARSHALL TATE MD
--- OUTSIDE RECORDS SUMMARY | 2025-07-28 13:55 | XMS_ITS | Encounter Summary ---
Author Organization [employer] Address [address] [facility] 7t [place] [address] Care Team Providers Care Contact Center Consultant Name Role Phone Veronica Gallardo MD Primary Care Provider [phone] Brien Vargas PharmD Unavailable [phone] Reason for Referral * Consultation (Routine) - Canceled Specialty Diagnoses / Procedures Referred By Contac t Referred To Contact Pharmacy Diagnoses Hypertension, unspecified type Veronica Gallardo MD [address] [place] [address] Phone: tel: fax: Referral ID Status Reason Start Date Expiration Date V isits Requested Visits Authorized [id number] Canceled Consult and Treat 10/12/2024 10/12/2025 6 6 Encounter Details Date Type Department Care Team (Late st Contact Info) Description 10/12/2024 Orders Only [facility] [address] [place] [address] [phone] Veronica Gallardo MD [address] [place], [place] [phone] Hypertension, unspecified type (Primary Dx) Social History [...] 1:00 PM EST Anticoagulation - Warfarin Visit [facility] [address] [place] [phone] 09/02/2025 11:00 AM EST Office Visit [address] [address] Veronica Gallardo MD [address] [place] [address] 10/14/2025 10:00 AM EST Medication Management [facility] [address] [place] [phone] Brien Vargas, PharmD [address] [place] [phone] Scheduled Referrals Name Type Priority Associated Diagnoses [...] documented as of this encounter Care Teams Contact Center Consultant Relationship Specialty Start Date End Date Veronica Gallardo MD [address] [place] [address] PCP - General Family Medicine 08/09/12 Brien Vargas, PharmD [address] [place] [phone] Pharmacist Internal Medicine 11/30/22 documented as of this encounter
--- OUTSIDE RECORDS SUMMARY | 2025-07-28 13:55 | XMS_ITS | Encounter Summary ---
Author Organization [employer] Address [address] 7[address] [place] [address] Care Team Providers Care Financial Dealers Name Role Phone Veronica Gallardo MD Primary Care Provider [phone] Brien Vargas PharmD Unavailable [phone] Encounter Details Date Type Department Care Team (Late st Contact Info) Description 04/02/2025 Orders Only [facility] [address] [place], [place] [phone] Veronica Gallardo MD [address] [place], [place] [phone] Hypertension, unspecified type (Primary Dx); Stage 3 [...] 1:00 PM EST Anticoagulation - Warfarin Visit [address] [address] 09/02/2025 11:00 AM EST Office Visit [address] [address] Veronica Gallardo MD [address] [place] [address] 10/14/2025 10:00 AM EST Medication Management [address] [address] Brien Vargas, PharmD [address] [place] [phone] Scheduled Orders Name Type Priority Associated Diagnoses [...] EDT) Hepatitis B Surface Ag Negative Negative [facility] Venous blood specimen / Unknown 04/15/2025 9:10 AM EDT 04/15/2025 11:17 AM EDT us Veronica Gallardo MD LAB BLOOD ORDERABLES Final Resul t Performing Organization Address [facility] Co de Phone Number [facility] [address] [place] [phone] * HIV-1/2 Antigen and Antibodies, Fourth Generation, with Reflexes (04/15/2025 9:10 AM EDT) HIV AB/AG Nonreactive Nonreactive [facility] Comment:HIV-1 p24 Ag and/or HIV-1/HIV-2 Ab not detected.A test result that is nonreactive does not exclude thepossibility of exposure to or infection with HIV-1 and/orHIV-2. Nonreactive results in this assay for individualswith prior exposure to HIV-1 and/or HIV-2 may be due toantigen and antibody levels that are below the limit ofdetection of this assay.The [employer] HIV Ag/Ab Combo assay result andsupplemental assay results should be interpreted inconjunction with the patient's clinical presentation,history and other laboratory results. If the results areinconsistent with clinical evidence, additional testing issuggested to confirm the result. Venous blood specimen / Unknown 04/15/2025 9:10 AM EDT 04/15/2025 11:17 AM EDT us Veronica Gallardo MD LAB BLOOD ORDERABLES Final Resul t Performing Organization Address City/[facility] Co de Phone Number [facility] [address] [place] [phone] * Hepatitis C Antibody with Reflex to HCV, RNA, Quantitative, Real-Time PCR (04/15/2025 9:10 AM EDT) Hepatitis C Antibody Nonreactive Nonreactive [facility] Comment:Antibodies to HCV no t detected; does not exclude early acuteHCV infection. Venous blood specimen / Unknown 04/15/2025 9:10 AM EDT 04/15/2025 11:17 AM EDT Veronica Gallardo MD LAB BLOOD ORDERABLES Final Resul t Performing Organization Address City/[facility]/ZIP Co de Phone Number [facility] [address] [place] [phone] * Syphilis Screen (04/15/2025 9:10 AM EDT) Syphilis Screen Nonreactive Nonreactive [facility] 04/15/2025 9:10 AM EDT 04/15/2025 6:02 PM EDT us Veronica Gallardo MD LAB BLOOD ORDERABLES Final Resul t Performing Organization Address [facility] de Phone Number [facility] [address] [place] [phone] * Vitamin B12 (Cobalamin) and Folate Panel, Serum (04/15/2025 9:10 AM EDT) Vitamin B12 224 200 - 900 pg/mL [facility] Comment:NORMAL 200-900 PG/ML INDETERMINATE 160-199 PG/ML DEFICIENT < 160 PG/ML Folate 12.8 > or = 4.0 ng/mL [facility] Comment:Reference Values:> o r = 4.0 ng/mL< 4.0 ng/mL suggests folate deficiency Methotrexate, aminopterin and folinic acid(leucovorin) are chemotherapeutic agents whose molecularstructures are similar to folate; therefore, the Architectfolate assay cannot be used for patients using these drugs. Blood 04/15/2025 9:10 AM EDT 04/15/2025 11:17 AM EDT Veronica Gallardo MD LAB BLOOD ORDERABLES Final Resul t Performing Organization Address [facility] Co de Phone Number [facility] [address] [place] [phone] * Vitamin D, 25-Hydroxy, Total, Immunoassay (04/15/2025 9:10 AM EDT) Vitamin D 25-OH Total 42.5 >30 ng/mL [facility] Comment: Health Based Reference Values*< 20 ng/mL Zutihxzqs08-24 ng/mL Insufficient> 30 ng/mL Sufficient*Ken COLEMAN. N [...] MD LAB BLOOD ORDERABLES Final Resul t [facility] [address] [place] [phone] * Lipid Panel with Reflex to Direct LDL (04/15/2025 9:10 AM EDT) Triglycerides 107 <150 mg/dL [facility] Comment:Desirable Triglyceri de: less than 150 mg/dLBorderline High Triglyceride 150-199 mg/dLHigh Triglyceride: 200-499 mg/dLVery High Triglyceride: greater than or equal to 5OO mg/dL Cholesterol 168 <200 mg/dL [facility] Comment:Desirable Cholestero l: less than 200 mg/dLBorderline High Cholesterol: 200-239 mg/dLHigh Cholesterol: greater than 239 mg/dL LDL Cholesterol Calculated 91 <100 mg/dL [facility] Comment:Desirable LDL: less than 100 mg/dLNear Optimal/Above Optimal LDL: 110- 129 mg/dLBorderline High LDL: 130-159 mg/dLHigh LDL: 160-189 mg/dLVery High LDL: greater than or equal to 190 mg/dL HDL Cholesterol 56 >40 mg/dL [facility] Comment:Desirable HDL: great er than 40 mg/dL Note: This HDL assay may give artificially low results in patients with liver disease. Blood 04/15/2025 9:10 AM EDT 04/15/2025 11:17 AM EDT us Veronica Gallardo MD LAB BLOOD ORDERABLES Final Resul t Performing Organization Address [facility] Co de Phone Number [facility] [address] [place] [phone] * Hemoglobin A1c (04/15/2025 9:10 AM EDT) Hemoglobin A1c 5.3 <6.0 % [facility] Comment:Hemoglobin A1C Refer ence Range Adults: 4.8 - 6.0 % Non diabetic: < 6.0 % Goal: < 7.0 %Additional Action Suggested: > 8.0 %Note: Hemoglobin A1c results are invalid for patients with abnormal amounts of HbF. Blood transfusions may impact the HbA1c concentration in the patient sample. Estimated Average Glucose 105 mg/dL [facility] Comment:eAG = Estimated ave rage glucose which is %A1C expressed asaverage glucose, using the formula of the V4T-BfkhdpbWqynojx Glucose study (ADAG), Diabetes Care, Vol.31,#8,May. 2007 Blood Venous blood specimen / Unknown 04/15/2025 9:10 AM EDT 04/15/2025 11:17 AM EDT us Veronica Gallardo MD LAB BLOOD ORDERABLES Final Resul t Performing Organization Address City/[facility] Co de Phone Number [facility] [address] [place] [address] [phone] * TSH with Reflex to Free T4 (04/15/2025 9:10 AM EDT) TSH reflex Free T4 2.74 0.32 - 4.0 uIU/mL [facility] Blood 04/15/2025 9:10 AM EDT 04/15/2025 11:17 AM EDT us Veronica Gallardo MD LAB BLOOD ORDERABLES Final Resul t [facility] [address] [place] [phone] documented in this encounter Visit Diagnoses Diagnosis Hypertension, unspecified type- Primary Stage 3 chronic kidney disease, unspecified whether stage 3a or 3b CKD ([facility]) ([facility]) Erythrocytosis Polycythemia, secondary Dyslipidemia Other and unspecified hyperlipidemia Vitamin D deficiency Alcohol use disorder, moderate, in early remission ([facility]) ([facility]) Screening for diabetes mellitus Routine screening for STI (sexually transmitted infection) Screening examination for venereal disease documented in this encounter Additional Health Concerns Assessment Noted Time PHQ-9 Depression Total Score: 0 03/24/20 23 11:18 AM EDT documented as of this encounter Care Teams Financial Dealers Relationship Specialty Start Date End Date Veronica Gallardo MD [address] [place] [address] PCP - General Family Medicine 08/09/12 Brien Vargas, PallaviD [address] [place] [address] Pharmacist Internal Medicine 11/30/22 documented as of this encounter
--- OUTSIDE RECORDS SUMMARY | 2025-07-28 13:55 | XMS_ITS | Encounter Summary ---
Author Organization [employer] Address [address] [place] [address] Care Team Providers Care Concrete Stone Finishing Supervisor Name Role Phone Veronica Gallardo MD Primary Care Provider [phone] Brien Vargas PharmD Unavailable [phone] Encounter Details Date Type Department Care Team (Late st Contact Info) Description 10/12/2022 Orders Only [facility] [address] [place], [place] [phone] Deya Barber LPN Social History Tobacco Use [...] 1:00 PM EST Anticoagulation - Warfarin Visit [facility] [address] [place] [address] [phone] 09/02/2025 11:00 AM EST Office Visit [facility] [address] [place] [address] [phone] Veronica Gallardo MD [address] [place] [address] [phone] 10/14/2025 10:00 AM EST Medication Management [facility] [address] [place], [place] [phone] Brien Vargas, PharmD [address] [place] [address] documented as of this encounter Visit Diagnoses Not on filedocumented in this encounter Care Teams Con[employer] Finishing Supervisor Relationship Specialty Start Date End Date Veronica Gallardo MD [address] [place] [address] [phone] PCP - General Family Medicine 08/09/12 Brien Vargas, Efrain [address] [place] [address] [phone] Pharmacist Internal Medicine 11/30/22 documented as of this encounter
--- OUTSIDE RECORDS SUMMARY | 2025-07-28 13:55 | XMS_ITS | Encounter Summary ---
Author Organization [employer] Address [address] [facility] [address] 7t [place] [address] Care Team Providers Care Softball Umpire Name Role Phone Veronica Gallardo MD Primary Care Provider [phone] Brien Vargas PharmD Unavailable [phone] Reason for Visit * Reason Comments Med Refill Encounter Details Date Type Department Care Team (Late st Contact Info) Description 07/27/2025 Refill [facility] [address] [place], [place] [phone] Veronica Gallardo MD [address] [place], [place] [phone] Back pain with left-sided radiculopathy Social History [...] the past 12 months, has t he [employer], [employer] or water [employer] threatened to shut off services in your [...] PM EST Anticoagulation - Warfarin Visit [address] [address] 09/02/2025 11:00 AM EST Office Visit [address] [address] Veronica Gallardo MD [address] [place] [address] 10/14/2025 10:00 AM EST Medication Management [address] [address] Brien Vargas PharmD [address] [place] [address] documented as of this encounter Goals Goal [...] documented as of this encounter Care Teams Softball Umpire Relationship Specialty Start Date End Date Veronica Gallardo MD [address] [place] [address] PCP - General Family Medicine 08/09/12 Brien Vargas, PharmD [address] [place] [address] Pharmacist Internal Medicine 11/30/22 documented as of this encounter
--- OUTSIDE RECORDS SUMMARY | 2025-07-28 13:55 | XMS_ITS | Encounter Summary ---
Author Organization [employer] Address [address] [facility] 7t [place] [address] Care Team Providers Care Microsoft Developer Name Role Phone Veronica Gallardo MD Primary Care Provider [phone] Brien Vargas PharmD Unavailable [phone] Reason for Visit * Reason Comments Med Refill Encounter Details Date Type Department Care Team (Late st Contact Info) Description 01/14/2023 Refill [facility] [address] [place] [phone] Estefania Gilbert MD [address] [place] [phone] Social History Tobacco Use Types Packs/Day Years [...] 1:00 PM EST Anticoagulation - Warfarin Visit [facility] [address] [place] [address] [phone] 09/02/2025 11:00 AM EST Office Visit [address] [address] Veronica Gallardo MD [address] [place], [place] [phone] 10/14/2025 10:00 AM EST Medication Management [facility] [address] [facility] [place], [place] [phone] Brien Vargas, Efrain [address] [place], [place] [phone] documented as of this encounter Goals Goal Patient Goal Type Associated Problems Recent Progress Patient-Stated? Author Blood Pressure < 140/90 Blood Pressure 110/60( 025 9:09 AM EDT) No Brien Vargas, Efrain documented as of this encounter Visit Diagnoses Not on filedocumented in this encounter Care Teams [employer] Developer Relationship Specialty Start Date End Date Veronica Gallardo MD [address] [place] [address] [phone] PCP - General Family Medicine 08/09/12 Brien Vargas, PallaviD [address] [place] [address] [phone] Pharmacist Internal Medicine 11/30/22 documented as of this encounter
--- OUTSIDE RECORDS SUMMARY | 2025-07-28 13:55 | XMS_ITS | Clinical Summary ---
Author Organization [employer] Address [address] [facility] [address] [place] [address] Care Team Providers Care Water Quality Manager Name Role Phone Veronica Gallardo MD Primary Care Provider [phone] Brien Vargas PharmD Unavailable [phone] Allergies Active Allergy Reactions Criticality Noted Date [...] (12/12/2023 3:50 PM EST): - followed by [facility] [place] - most recent renal US in Jun 2023 - continue surveillance Non-rheumatic aortic stenosis 06/03/2023 Assessment & Plan (06/03/2025 8:19 AM EDT): - most recent transthoracic echocardiogram on 09/06/24 showed mild to moderate aortic stenosis, and possible bicuspid aortic valve - continue following up with lsw Assessment & Plan (12/12/2023 3:47 PM EST): - most recent transthoracic echocardiogram on 09/05/23 showing mild-moderate aortic stenosis and trivial aortic regurgitation - continue following management recommendations by lsw Benign prostatic hyperplasia 03/28/2023 Overview (03/28/2023): -previously following with Urologist, last seen in 2018&2019 -will check PSA -will refer him back to Urologist for further evaluation Assessment & Plan (06/03/2025 8:25 AM EDT): - followed by [facility] [place], last seen in Jul 2024 - PSA has been normal level - continue terazosin and finasteride Assessment & Plan (06/21/2024 11:09 AM EDT): - followed by [facility] [place], last seen in Nov 2023 - PSA has been normal level - continue tamsulosin Assessment & Plan (12/12/2023 3:49 PM EST): - followed by [facility] [place], last seen in Nov 2023 - PSA has been normal level - continue tamsulosin Assessment & Plan (07/15/2023 6:41 AM EDT): - previously followed by urologist, last seen in 2017 - recently seen again by [facility] [place] urology in May 2023 - CT in [...] EDT): -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 -Due to Coumadin use, Rifampin was contraindicated. Pt was started on Isoniazid, but the treatment had to be interrupted multiple times because of elevated LFT. Pt was drinking alcohol excessively during the treatment. -[facility], and pt had a direct observation therapy. 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 -Due to Coumadin use, Rifampin was contraindicated. Pt was started on Isoniazid, but the treatment had to be interrupted multiple times because of elevated LFT. Pt was drinking alcohol excessively during the treatment. -His [facility], and pt had a direct observation therapy. -He finally completed 12 weeks of 900mg INH/900mg Rifapentine/ B6 50mg on 02/14/2019 History of syphilis 11/19/2022 History of shingles 11/19/2022 Major depression 11/09/2022 History of alcohol use disorder 11/09/2022 Assessment & Plan (11/19/2022 5:42 PM EST): - graduated from AUD clinic - continue naltrexone - pt is aware of recovery support resources at [facility] Alcohol use disorder, modera te, in [...] (06/03/2025 8:25 AM EDT): - followed by gas pumping station operator, last seen in Jul 2024 - normal erythropoietin level - all other work-up has been normal Assessment & Plan (06/21/2024 11:09 AM EDT): - followed by gas pumping station operator, last seen in Jul 2023 - normal erythropoietin level - all other work-up has been normal Assessment & Plan (12/12/2023 3:53 PM EST): - followed by gas pumping station operator, last seen in Jul 2023 - normal erythropoietin level - all other work-up has been normal Assessment & Plan (07/15/2023 6:41 AM EDT): - evaluated by gas pumping station operator, last seen in January 2023 - normal erythropoietin level - all other work-up has been normal - US was ordered by gas pumping station operator; advised to complete evaluation Assessment & Plan (11/19/2022 5:28 PM EST): - evaluated by gas pumping station operator, last seen on 07/13/22 - normal erythropoietin level - all other work-up has been normal - most recent hematocrit 45 on 09/16/22 - US was ordered by gas pumping station operator; advised to complete evaluation salvage determiner (current) use of anticoagulants 2021 Assessment & Plan (05/31/2025 12:19 AM EDT): - indication: recurrent / chronic DVT, question of hypercoagulable disorder (elevated homocysteine) -managed by [facility] -Most recent INR-->3.4 on 03/18/23 -Current [...] of hypercoagulable disorder (elevated homocysteine) -managed by [facility] -Most recent INR-->3.4 on 03/18/23 -Current [...] of hypercoagulable disorder (elevated homocysteine) -managed by [facility] -Most recent INR-->3.4 on 03/18/23 -Current [...] -Emphasized the importance of keeping appt with lsw; pt verbalized understanding Assessment & Plan (12/12/2023 3:07 PM EST): -Most recent TTE on 09/05/23 Normal EF, mild-mod aortic stenosis and trivial aortic regurgitation with possible bicuspid aortic valve. Ascending aorta at 42 mm -Continue working on risk factor management -Emphasized the importance of keeping appt with lsw; pt verbalized understanding Assessment & Plan (07/15/2023 6:32 AM EDT): - Echo on 03/31/22 EF 60-65% showed severely calcified aortic valve, stenosis and mild regurgitation (in [facility]). - Emphasized the importance of keeping appt with lsw; pt verbalized understanding Assessment & Plan (11/09/2022 11:55 AM EST): - ECHO on 03/31/22 EF 60-65% showed severely calcified aortic valve, stenosis and mild regurgitation. 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 Alcohol use 11/16/2018 Stage 3 chronic kidney disease (CMS/HCC) 016 Assessment & Plan (06/03/2025 8:24 AM EDT): -Patient has missed several appointments with local sales associate, upcoming appt -09/10/16 Renal US wnl, no renal artery stenosis. -Hx elevated K with ACEI -Avoid NSAIDs / nephrotoxic drugs. -Use renal dosing. -Emphasized the importance of keeping appt Assessment & Plan (06/21/2024 11:09 AM EDT): -Referred back to local sales associate after last visit in Jul 2023 -Patient had an appointment in [facility], which was rescheduled for 01/09/24 -09/10/16 Renal US wnl, no renal artery stenosis. -Hx elevated K with ACEI -Avoid NSAIDs / nephrotoxic drugs. -Use renal dosing. -Emphasized the importance of keeping appt Assessment & Plan (12/12/2023 3:52 PM EST): -Referred back to local sales associate after last visit in Jul 2023 -Patient had an appointment in [facility], which was rescheduled for 01/09/24 -09/10/16 Renal US wnl, no renal artery stenosis. -Hx elevated K with ACEI -Avoid NSAIDs / nephrotoxic drugs. -Use renal dosing. -Emphasized the importance of keeping appt Assessment & Plan (07/15/2023 6:39 AM EDT): -Followed by local sales associate, last seen ? -Mildly elevated K. Monitor closely with ACEI. -09/10/16 Renal US wnl, no renal artery stenosis. -Avoid NSAIDs / nephrotoxic drugs. -Use renal dosing. -Emphasized the importance of keeping appt Assessment & Plan (03/24/2023 12:38 PM EDT): -Followed by local sales associate, last seen -Currently on lisinopril 5 mg daily. -Mildly elevated K. Monitor closely with ACEI. -Most recent INR-->3.0 on 11/09/22 -09/10/16 Renal US wnl, no renal artery stenosis. -Avoid NSAIDs / nephrotoxic drugs. -Use renal dosing. Assessment & Plan (11/19/2022 6:02 PM EST): -Followed by local sales associate, last seen -Currently on lisinopril 5 mg daily. -Mildly elevated K. Monitor closely with ACEI. -Most recent INR-->3.0 on 11/09/22 -09/10/16 Renal US wnl, no renal artery stenosis. -Avoid NSAIDs / nephrotoxic drugs. -Use renal dosing. Hypertension 09/02/2015 Assessment & Plan (06/03/2025 8:21 AM EDT): -Goal BP < 130/80 per ACC/AHA guideline -BP at goal -Comanaged with lsw, pharmD, and local sales associate -Continue working on life style modifications. -Continue amlodipine 10 mg daily -Continue hydralazine 50 mg tid -(Continue terazosin 5 mg daily for BPH with LUTS) --Treatment history: -Lisinopril was decreased to 2.5 mg daily after AAYUSH with hyperkalemia secondary to renal hypoperfusion in a setting of CKD in summer 2016. Completely discontinued by local sales associate -Most recent echo: 09/06/24 EF 60-65%. Mild - mod . Thoracic aortic aneurysm 4.2 cm Assessment & Plan (06/21/2024 11:09 AM EDT): -Goal BP < 140/90 per JNC-8, < 130/80 per ACC/AHA guideline -BP not at goal , ?adherence to medication -Comanaged with lsw, pharmD, and local sales associate -Continue working on life style modifications. -Continue amlodipine 10 mg daily -Continue hydralazine 50 mg tid --Treatment history: -Lisinopril was decreased to 2.5 mg daily after AAYUSH with hyperkalemia secondary to renal hypoperfusion in a setting of CKD in summer 2016. Completely discontinued by local sales associate -Most recent echo: 09/05/23 EF 60-65%. Mild . Thoracic aortic aneurysm 4.2 cm - Follow up in 3 mo or sooner if any problem arises Assessment & Plan (03/13/2024 10:47 AM EDT): -Goal BP < 140/90 per JNC-8, < 130/80 per ACC/AHA guideline -BP not at goal , ?adherence to medication -Comanaged with lsw, pharmD, and local sales associate -Continue working on life style modifications. -Continue amlodipine 10 mg daily -Continue hydralazine 50 mg tid --Treatment history: -Lisinopril was decreased to 2.5 mg daily after AAYUSH with hyperkalemia secondary to renal hypoperfusion in a setting of CKD in summer 2016. Completely discontinued by local sales associate -Most recent echo: 09/05/23 EF 60-65%. Mild . Thoracic aortic aneurysm 4.2 cm - Follow up in 3 mo or sooner if any problem arises Assessment & Plan (12/12/2023 3:05 PM EST): -Goal BP < 140/90 per JNC-8, < 130/80 per ACC/AHA guideline -BP not at goal , ?adherence to medication -Comanaged with lsw, pharmD, and local sales associate -Continue working on life style modifications. -Continue amlodipine 10 mg daily -Continue hydralazine 50 mg tid --Treatment history: -Lisinopril was decreased to 2.5 mg daily after AAYUSH with hyperkalemia secondary to renal hypoperfusion in a setting of CKD in summer 2016. Completely discontinued by local sales associate -Most recent echo: 09/05/23 EF 60-65%. Mild . Thoracic aortic aneurysm 4.2 cm - Follow up in 3 mo or sooner if any problem arises Assessment & Plan (07/15/2023 6:34 AM EDT): -Goal BP < 140/90 per JNC-8, < 130/80 per ACC/AHA guideline -BP not at goal , ?adherence to medication -Comanaged with lsw, pharmD, and local sales associate -Continue working on life style modifications. -Continue amlodipine 10 mg daily -Continue hydralazine 25 mg tid --Treatment history: -Lisinopril was decreased to 2.5 mg daily after AAYUSH with hyperkalemia secondary to renal hypoperfusion in a setting of CKD in summer 2016. Completely discontinued by local sales associate -Most recent echo: 03/31/22 EF 60-65%. Mild [...] We need to confirm this dosing with lsw. --Treatment history: -Lisinopril was decreased to 2.5 [...] We need to confirm this dosing with lsw. --Treatment history: -Lisinopril was decreased to 2.5 [...] EDT): Hx of elevated homocysteine. Evaluated by gas pumping station operator for hypercoagulable disorder. Evaluation is incomplete because he was on Coumadin. He was recommended indefinite warfarin treatment. Assessment & Plan (03/28/2023 1:04 PM EDT): Hx of elevated homocysteine. Evaluated by gas pumping station operator for hypercoagulable disorder. Evaluation is incomplete because he was on Coumadin. He was recommended indefinite warfarin treatment. Depressive disorder 11/24/2012 Assessment & Plan (12/12/2023 3:53 PM EST): - S provider : [facility] - Hx suicidal ideation - Lost his in 2014 due to pancreatic cancer, and his psychosocial health worsened - Continue buspirone and mirtazapine as prescribed by psychiatarist Assessment & Plan (2023 10:43 AM EDT): - S provider : [facility] - Hx suicidal ideation - Lost his in 2014 due to pancreatic cancer, and his psychosocial health worsened - Continue buspirone and mirtazapine as prescribed by psychiatarist Assessment & Plan (03/24/2023 12:38 PM EDT): - [facility] provider : Francisco Javier Andre Hx suicidal ideation - Lost his in 2014 due to pancreatic cancer, and his psychosocial health worsened - Continue buspirone and mirtazapine as prescribed by psychiatarist Assessment & Plan (11/19/2022 6:15 PM EST): - [facility] provider : Francisco Javier Andre Hx suicidal [...] and warfarin dose adjustment are managed by [facility] Green team nurses -Most recent INR 2.3 on 06/18/23 -Continue following with [facility] Green team nurse for anticoagulation management Assessment & Plan (06/21/2024 11:08 AM EDT): -Recurrent and chronic DVT, mostly left side -Chronic left common femoral vein -Continue warfarin -INR monitoring and warfarin dose adjustment are managed by [facility] Green team nurses -Most recent INR 2.3 on 06/18/23 -Continue following with [facility] Green team nurse for anticoagulation management Assessment & Plan (03/13/2024 10:46 AM EDT): -Recurrent and chronic DVT, mostly left side -Chronic left common femoral vein -Continue warfarin -INR monitoring and warfarin dose adjustment are managed by [facility] Green team nurses -Most recent INR 2.3 on 06/18/23 -Continue following with [facility] Green team nurse for anticoagulation management Assessment & Plan (12/12/2023 3:04 PM EST): -Recurrent and chronic DVT, mostly left side -Chronic left common femoral vein -Continue warfarin -INR monitoring and warfarin dose adjustment are managed by [facility] Green team nurses -Most recent INR 2.3 on 06/18/23 -Continue following with [facility] Green team nurse for anticoagulation management Assessment & Plan (07/15/2023 6:37 AM EDT): -Recurrent and chronic DVT, mostly left side -Chronic left common femoral vein -Continue warfarin -INR monitoring and warfarin dose adjustment are managed by [facility] Green team nurses -Most recent INR 2.3 on 06/18/23 -Continue following with [facility] Green team nurse for anticoagulation management Assessment & Plan (03/24/2023 12:37 PM EDT): -Recurrent and chronic DVT, mostly left side -Chronic left common femoral vein -Continue warfarin -INR monitoring and warfarin dose adjustment are managed by [facility] Green team nurses -Most recent INR-->3.0 on 11/09/22 -Continue following with [facility] Green team nurse for anticoagulation management Assessment & Plan (11/19/2022 6:00 PM EST): -Recurrent and chronic DVT, mostly left side -Chronic left common femoral vein -Continue warfarin -INR monitoring and warfarin dose adjustment are managed by [facility] Green team nurses -Most recent INR-->3.0 on 11/09/22 -Continue following with [facility] Leon team nurse for anticoagulation management Seizure disorder ([facility]) 03/23/2012 Assessment & Plan (05/31/2025 12:21 AM [...] Encounters Date Type Department Care Team Description 07/27/[address] [facility] [address] [place] [address] Veronica Gallardo MD Back pain with left-sided radiculopathy 07/26/[address] [facility] [address] [place] [address] Veronica Gallardo MD fyi 07/23/2025 11:00 AM EDT Clinical Support [facility] [place] [address] Earline Quinn RN senior living (current) use of anticoagulants 07/23/2025 Travel 07/18/2025 Orders Only GENERIC EXTERNAL DATA DEPARTMENT Provider, Generic External Data 07/15/2025 Orders Only GENERIC EXTERNAL DATA DEPARTMENT Provider, Generic External Data 06/26/2025 Refill [facility] [place] [address] Veronica Gallardo MD Hypertension, unspecified type; Intercostal pain 06/21/2025 10:30 AM EDT Clinical Support [facility] [place] [address] Earline Quinn RN salvage determiner (current) use of anticoagulants 06/21/2025 Travel 05/30/2025 9:00 AM EDT Office Visit [facility] [place] [address] Veronica Gallardo MD Hypertension, unspecified type (Primary [...] femoral vein of left lower extremity (CMS/HCC); salvage determiner (current) use of anticoagulants; Peripheral vascular disease (CMS/HCC) 05/30/2025 Travel 05/30/[address] [facility] [address] Veronica Gallardo MD Back pain with left-sided radiculopathy 05/29/2025 Telephone [facility] [place] [address] Veronica Gallardo MD chart prep 05/24/2025 10:00 AM EDT Clinical Support [facility] [place] [address] Earline Quinn RN salvage determiner (current) use of anticoagulants 05/24/2025 Travel 05/11/2025 Orders Only GENERIC EXTERNAL DATA DEPARTMENT Provider, Generic External Data 05/06/[address] [facility] [address] [place] [address] Veronica Gallardo MD 05/05/[address] [facility] [address] [place], [place] [phone] Veronica Gallardo MD Hypertension, unspecified type 05/03/2025 10:00 AM EDT Office Visit [facility] [address] [place], [place] [phone] Kilo Julien MD Tinea cruris (Primary Dx) 05/03/2025 Travel 04/27/[address] [facility] [address] [place], [place] [phone] Veronica Gallardo MD from Last 3 Months Immunizations Immunization Administration [...] 1:00 PM EST Anticoagulation - Warfarin Visit [facility] [address] [place] [phone] 09/02/2025 11:00 AM EST Office Visit [address] [address] Veronica Gallardo MD [address] [place] [phone] 10/14/2025 10:00 AM EST Medication Management [address] [address] Brien Vargas, PharmD [address] [place] [phone] Health Maintenance Due Date Last Done Comments CT Colonography 1955 Colonoscopy 1955 Colorectal Cancer Screening 1955 FIT DNA/Cologuard 1955 FIT 1955 FOBT 1955 Sigmoidoscopy 1955 COVID-19 Vaccine ( season) 2025 10/15/2024, 03/13/2024, 09/25/2021, Additional history exists Influenza Vaccine (#1) 2025 , 06/29/2023, 07/28/2021, Additional history exists Alcohol/Substance Use Screening 05/30/2026 05/30/2025 Depression Screening 05/30/2026 05/30/2025, 05/30/20 25 SDOH Screening 05/30/2026 05/30/2025 Tobacco Screening 05/30/2026 [...] 9:09 AM EDT) No Brien Vargas, PharmD Procedures Procedure Name Priority Date/Time Associated Diagnosis Comments POCT INR Routine 07/23/2025 10:44 AM EDT senior living (current) use of anticoagulants HIGH SENSITIVITY TROPONIN I Routine 07/18/2025 4:42 PM EDT XR CHEST 2 VIEWS Routine 07/18/2025 2:50 PM EDT PSA, TOTAL Routine 07/15/2025 10:20 AM EDT POCT INR Routine 06/21/2025 10:48 AM EDT salvage determiner (current) use of anticoagulants POCT INR Routine 05/24/2025 9:37 AM EDT salvage determiner (current) use of anticoagulants HIGH SENSITIVITY TROPONIN I Routine 05/11/2025 6:58 PM EDT XR CHEST 2 VIEWS Routine 05/11/2025 5:00 PM EDT HEPATITIS C AB W/REFL TO HCV RNA, QN, PCR Routine 04/15/2025 9:10 AM EDT Screening for diabetes mellitus LIPID PANEL WITH REFLEX TO DIRECT LDL Routine 04/15/2025 9:10 AM EDT Dyslipidemia from Last 3 Months or Most Recently Relevant to Health Maintenance Results * POCT INR manually resulted (07/23/2025 10:44 AM EDT) Only the most recent of3 resultswithin the time period is included. Protime INR 2.1 2 - 3 Blood Capillary blood specimen / Unknown 07/23/2025 10:44 AM EDT Veronica Gallardo MD POINT OF CARE TEST ENTER/EDIT OR DERABLES Final Result * High Sensitivity Troponin I (07/18/2025 4:42 PM EDT) Only the most recent of2 resultswithin the time period is included. TROPONIN I HIGH SENSITIVITY 18.7 <3.5 - 35.0 ng/L [facility] Comment:The Santana high sens itivity Troponin-I results should beused in conjunction with other diagnostic information suchas ECG, clinical observations and information, and patientsymptoms to aid in the diagnosis of SC. 07/18/2025 4:42 PM EDT 07/18/2025 4:45 PM EDT us Generic External Data Provider LAB BLOOD ORDERAB LES Final Result Performing Organization Address City/State/[facility] Co de Phone Number [facility] [address] [place] [phone] * XR Chest 2 Views (07/18/2025 2:50 PM EDT) Only the most recent of2 resultswithin the time period is included. Anatomical Region Laterality Modality Chest Radiographic Svitlana ging 07/18/2025 2:50 PM EDT Narrative 07/18/2025 3:05 PM EDT [address] [address] XRay Report Signed Patient: Chriss Munoz MR#: [id number] : 1955 Acct:[id number] Age/Sex: 70 / M ADM Date: 07/18/25 Loc: .ED Attending Dr: Ordering Physician: Freddy Craig DO Date of Service: 07/18/25 Procedure(s): XR chest 2V Accession Number(s): [id number] cc: Veronica Gallardo MD; Freddy Craig DO [...] 07/18/25 1502 DD/ 1450 TD/TT: 07/18/25 1454 Electrical/Instrument Technician: Procedure Note Donotuseinterpreter, Image - 07/18/2025 [place] [address] XRay Report Signed Patient: Lenard Munoz#: [id number] : 1955cct:[id number] Age/Sex: 70 / MADM Date: 07/18/25 Loc: .ED Attending Dr: Ordering Physician: Freddy Craig DO Date of Service: 07/18/25 Procedure(s): XR chest 2V Accession Number(s): [id number] cc: Veronica Gallardo MD; Freddy Craig DO [...] 07/18/25 1502 DD/ 1450 TD/TT: 07/18/25 1454 Electrical/Instrument Technician: [facility] External Provider IMG XR PROCEDURES Final Result * PSA,Total (07/15/2025 10:20 AM EDT) Prostate Specific Antigen 2.82 <0.05 - 4.0 ng/mL [facility] Comment:PSA methodology: Shanika Beck i ChemiluminescentMicroparticle Immunoassay (CMIA) 07/15/2025 10:2 0 AM EDT 07/15/2025 10:20 AM EDT Generic External Data Provider LAB BLOOD ORDERAB LES Final Result [facility] [address] [place], [place] [phone] * Lipid Panel with Reflex to Direct LDL (04/15/2025 9:10 AM EDT) Triglycerides 107 <150 mg/dL [facility] Comment:Desirable Triglyceri de: less than 150 mg/dLBorderline High Triglyceride 150-199 mg/dLHigh Triglyceride: 200-499 mg/dLVery High Triglyceride: greater than or equal to 5OO mg/dL Cholesterol 168 <200 mg/dL [facility] Comment:Desirable Cholestero l: less than 200 mg/dLBorderline High Cholesterol: 200-239 mg/dLHigh Cholesterol: greater than 239 mg/dL LDL Cholesterol Calculated 91 <100 mg/dL [facility] Comment:Desirable LDL: less than 100 mg/dLNear Optimal/Above Optimal LDL: 110- 129 mg/dLBorderline High LDL: 130-159 mg/dLHigh LDL: 160-189 mg/dLVery High LDL: greater than or equal to 190 mg/dL HDL Cholesterol 56 >40 mg/dL [facility] Comment:Desirable HDL: great er than 40 mg/dL Note: This HDL assay may give artificially low results in patients with liver disease. Blood 04/15/2025 9:10 AM EDT 04/15/2025 11:17 AM EDT us Veronica Gallardo MD LAB BLOOD ORDERABLES Final Resul t Performing Organization Address City/[facility]/ZIP Co de Phone Number [facility] [address] [place] [phone] * Hepatitis C Antibody with Reflex to HCV, RNA, Quantitative, Real-Time PCR (04/15/2025 9:10 AM EDT) Hepatitis C Antibody Nonreactive Nonreactive [facility] Comment:Antibodies to HCV no t detected; does not exclude early acuteHCV infection. Venous blood specimen / Unknown 04/15/2025 9:10 AM EDT 04/15/2025 11:17 AM EDT us Veronica Gallardo MD LAB BLOOD ORDERABLES Final Resul t Performing Organization Address City/[facility]/ZIP Co de Phone Number [facility] [address] [place] [address] [phone] from Last 3 Months or Most Recently Relevant to Health Maintenance Insurance [employer] OPTIONS (O D-SNP) Care Teams Water Quality Manager Relationship Specialty Start Date End Date Veronica Gallardo MD [address] [place] [address] PCP - General Family Medicine 08/09/12 Brien Vargas, PallaviD [address] [place] [address] Pharmacist Internal Medicine 11/30/22
--- OUTSIDE RECORDS SUMMARY | 2025-07-28 13:55 | XMS_ITS | Encounter Summary ---
Author Organization [employer] Address [address] [facility] 7t [place] [address] Care Team Providers Care Piece Cutter Name Role Phone Veronica Gallardo MD Primary Care Provider [phone] Brien Vargas PharmD Unavailable Encounter Details Date Type Department Care Team (Late st Contact Info) Description 06/27/2023 Telephone [facility] [address] [place] [address] [phone] Veronica Gallardo MD [address] [place] [address] Social History Tobacco Use Types Packs/Day Years [...] EST Anticoagulation - Warfarin Visit [facility] [address] [place] [address] [phone] 09/02/2025 11:00 AM EST Office Visit [address] [phone] Veronica Gallardo MD [address] [place] [address] 10/14/2025 10:00 AM EST Medication Management [facility] [address] [place] [address] Brien Vargas, PharmD [address] [place] [address] documented as of this encounter Goals Goal [...] documented as of this encounter Care Teams Piece Cutter Relationship Specialty Start Date End Date Veronica Gallardo MD [address] [place] [address] PCP - General Family Medicine 08/09/12 Brien Vargas, PharmD [address] [place] [address] Pharmacist Internal Medicine 11/30/22 documented as of this encounter
--- OUTSIDE RECORDS SUMMARY | 2025-07-28 13:55 | XMS_ITS | Encounter Summary ---
Author Organization [employer] Address [address] [facility] [address] 7t [place] [address] Care Team Providers Care In Home Aide Name Role Phone Veronica Gallardo MD Primary Care Provider [phone] Brien Vargas PharmD Unavailable Reason for Visit * Reason Onset Date Comments fyi 07/26/2025 Encounter Details Date Type Department Care Team ([facility] st Contact Info) Description 07/26/2025 Telephone [facility] [address] [place], [place] [phone] Veronica Gallardo MD [address] [place], [place] [phone] fyi Social History Tobacco Use Types Packs/Day Years [...] encounter Miscellaneous Notes * Telephone Encounter - Sarah Prieto RN - 07/26/2025 3:29 PM EDT Noted * Telephone Encounter - Livia Dunn - 07/26/2025 2:51 PM EDT Tc from Monique Vázquez at [facility] stating pt was discharged from [facility] and [facility] for medication management Contact Monique at [phone] (can leave detailed VM) documented in this encounter Plan of Treatment Upcoming Encounters Date Type Department Care Team (Latest Contact Info) Description 08/22/2025 1:00 PM EST Anticoagulation - Warfarin Visit [facility] [address] [place] [address] 09/02/2025 11:00 AM EST Office Visit [facility] [address] [place] [address] Veronica Gallardo MD [address] [place], [place] [phone] 10/14/2025 10:00 AM EST Medication Management [facility] [address] [place], [place] [phone] Brien Vargas, Efrain [address] [place] [address] documented as of this encounter Goals Goal [...] documented as of this encounter Care Teams In Home Aide Relationship Specialty Start Date End Date Veronica Gallardo MD [address] [place] [address] PCP - General Family Medicine 08/09/12 Brien Vargas, Efrain [address] [place] [address] [phone] Pharmacist Internal Medicine 11/30/22 documented as of this encounter
--- OUTSIDE RECORDS SUMMARY | 2025-07-28 13:55 | XMS_ITS | Encounter Summary ---
Author Organization [employer] Address [address] [address] 7t [place] [address] Care Team Providers Care Munitions Handler Supervisor Name Role Phone Veronica Gallardo MD Primary Care Provider [phone] Brien Vargas PharmD Unavailable [phone] Encounter Details Date Type Department Care Team [...] 1:00 PM EST Anticoagulation - Warfarin Visit [address] [address] 09/02/2025 11:00 AM EST Office Visit [address] [address] Veronica Gallardo MD [address] [place] [address] 10/14/2025 10:00 AM EST Medication Management [address] [address] Brien Vargas PharmD [address] [place] [address] documented as of this encounter Goals Goal [...] documented as of this encounter Care Teams Munitions Handler Supervisor Relationship Specialty Start Date End Date Veronica Gallardo MD [address] [place] [address] PCP - General Family Medicine 08/09/12 Brien Vargas, PallaviD [address] [place] [address] Pharmacist Internal Medicine 11/30/22 documented as of this encounter
--- OUTSIDE RECORDS SUMMARY | 2025-07-28 13:55 | XMS_ITS | Encounter Summary ---
Author Organization [employer] Address [address] [facility] [address] 7t [place] [address] Care Team Providers Care Patient Services Clerk Name Role Phone Veronica Gallardo MD Primary Care Provider [phone] Brien Vargas PharmD Unavailable [phone] Reason for Visit * Reason Comments Med Refill Encounter Details Date Type Department Care Team (Late st Contact Info) Description 10/12/2023 Refill [facility] [address] [place], [place] [phone] Veronica Gallardo MD [address] [place], [place] [phone] Back pain with left-sided radiculopathy Social History [...] 1:00 PM EST Anticoagulation - Warfarin Visit [facility] [address] [place] [address] 09/02/2025 11:00 AM EST Office Visit [address] [address] Veronica Gallardo MD [address] [place] [address] 10/14/2025 10:00 AM EST Medication Management [address] [address] Brien Vargas PharmD [address] [place] [address] documented as of this encounter Goals Goal [...] documented as of this encounter Care Teams Patient Services Clerk Relationship Specialty Start Date End Date Veronica Gallardo MD [address] [place] [address] PCP - General Family Medicine 08/09/12 Brien Vargas, PharmD [address] [place] [address] Pharmacist Internal Medicine 11/30/22 documented as of this encounter
--- OUTSIDE RECORDS SUMMARY | 2025-07-28 13:55 | XMS_ITS | Encounter Summary ---
Author Organization [employer] Address [address] [facility] [address] 7t [place] [address] Care Team Providers Care Coach Builder Name Role Phone Veronica Gallardo MD Primary Care Provider Brien Vargas PharmD Unavailable [phone] Reason for Visit * Reason Comments Med Refill Encounter Details Date Type Department Care Team (Late st Contact Info) Description 08/14/2023 Refill [facility] [address] [place], [place] [phone] Brien Vargas, PharmD [address] [place], [place] [phone] Essential hypertension Social History Tobacco Use Types Packs/Day Years Used Date Smoking Tobacco: Never Smokeless Tobacco: Never Depression Answer Date Recorded Patient Health Questionnaire-9 Score 0 03/24/2023 Housing Stability Answer Date Recorded What is your housing situation today? I have prmio thomas 07/29/[address] you [...] t he electric, gas, oil or water [employer] threatened to shut off services in your [...] PharmD - 08/23/2023 11:57 AM EST [facility] will send 1 month fill of hydralazine 25 mg PO TID. Patient rescheduled last cardiology and nephrology visits. Needs to keep upcoming CDTM visit 09/09/2023. documented in this encounter Plan of Treatment Upcoming Encounters Date Type Department Care Team (Latest Contact Info) Description 08/22/2025 1:00 PM EST Anticoagulation - Warfarin Visit [facility] [address] [place] [address] 09/02/2025 11:00 AM EST Office Visit [facility] [address] [place] [address] Veronica Gallardo MD [address] [place] [address] 10/14/2025 10:00 AM EST Medication Management [facility] [address] [place] [address] Brien Vargas PharmD [address] [place] [address] documented as of this encounter Goals Goal [...] documented as of this encounter Care Teams Coach Builder Relationship Specialty Start Date End Date Veronica Gallardo MD [address] [place] [address] PCP - General Family Medicine 08/09/12 Brien Vargas, PallaviD [address] [place] [address] Pharmacist Internal Medicine 11/30/22 documented as of this encounter
--- OUTSIDE RECORDS SUMMARY | 2025-07-28 13:55 | XMS_ITS | Encounter Summary ---
Author Organization [employer] Address [address] [facility] 7t [place] [address] Care Team Providers Care Salesperson Women'S Hats Name Role Phone Veronica Gallardo MD Primary Care Provider [phone] Brien Vargas PharmD Unavailable [phone] Encounter Details Date Type Department Care Team (Late st Contact Info) Description 09/09/2022 Orders Only [facility] [address] [place] [address] Veronica Gallardo MD [address] [place] [address] Social History Tobacco Use Types Packs/Day Years [...] 1:00 PM EST Anticoagulation - Warfarin Visit [address] [phone] 09/02/2025 11:00 AM EST Office Visit [address] [phone] Veronica Gallardo MD [address] [place] [address] 10/14/2025 10:00 AM EST Medication Management [facility] [address] [place] [address] Brien Vargas, PharmD [address] [place] [address] documented as of this encounter Visit Diagnoses Not on filedocumented in this encounter Care Teams Salesperson Women'S Hats Relationship Specialty Start Date End Date Veronica Gallardo MD [address] [place] [address] PCP - General Family Medicine 08/09/12 Brien Vargas, PharmD [address] [place] [address] Pharmacist Internal Medicine 11/30/22 documented as of this encounter
--- OUTSIDE RECORDS SUMMARY | 2025-07-28 13:55 | XMS_ITS | Encounter Summary ---
Author Organization [employer] Address [address] [facility] [address] 7t [place] [address] Care Team Providers Care Real Estate Marketing Coordinator Name Role Phone Veronica Gallardo MD Primary Care Provider [phone] Brien Vargas PharmD Unavailable [phone] Encounter Details Date Type Department Care Team (Late st Contact Info) Description 11/04/2023 Orders Only [facility] [address] [place], [place] [phone] Veronica Gallardo MD [address] [place], [place] [phone] Alcohol use disorder, moderate, in early remission [...] 1:00 PM EST Anticoagulation - Warfarin Visit [address] [address] 09/02/2025 11:00 AM EST Office Visit [address] [address] Veronica Gallardo MD [address] [place] [address] 10/14/2025 10:00 AM EST Medication Management [address] [address] Brien Vargas, PharmD [address] [place] [address] documented as of this encounter Goals Goal Patient Goal Type Associated Problems Recent Progress Patient-Stated? Author Blood Pressure < 140/90 Blood Pressure 110/60( 025 9:09 AM EDT) No Biren Vargas, PharmD documented as of this encounter Visit Diagnoses Diagnosis Alcohol use disorder, moderate, in early remission (CMS/HCC) ([facility])- Primary documented in this encounter Additional Health Concerns Assessment Noted Time PHQ-9 Depression Total Score: 0 03/24/20 23 11:18 AM EDT documented as of this encounter Care Teams Real Estate Marketing Coordinator Relationship Specialty Start Date End Date Veronica Gallardo MD [address] [place] [address] PCP - General Family Medicine 08/09/12 Brien Vargas, PharmD [address] [place] [address] Pharmacist Internal Medicine 11/30/22 documented as of this encounter
--- OUTSIDE RECORDS SUMMARY | 2025-07-28 13:55 | XMS_ITS | Encounter Summary ---
Author Organization [employer] Address [address] [facility] [address] [facility] [address] 7t [place] [address] Care Team Providers Care Bacteriologist Soil Name Role Phone Veronica Gallardo MD Primary Care Provider [phone] Brien Vargas PharmD Unavailable [phone] Encounter Details Date Type Department Care Team (Late st Contact Info) Description 04/25/2024 Orders Only [facility] 230 [place], [place] [phone] Veronica Gallardo MD [address] [place], [place] [phone] Hypertension, unspecified type Social History Tobacco Use [...] the past 12 months, has t he [employer], gas, oil or water company threatened to [...] 1:00 PM EST Anticoagulation - Warfarin Visit [address] [address] 09/02/2025 11:00 AM EST Office Visit [address] [address] Veronica Gallardo MD [address] [place] [address] 10/14/2025 10:00 AM EST Medication Management [address] [address] Brien Vargas, PharmD [address] [place] [address] documented as of this encounter Goals Goal [...] AM EDT Narrative 05/03/2024 10:18 AM EDT [address] [address] XRay Report Signed Patient: Chriss Munoz MR#: [id number] : 1955 Acct:[id number] Age/Sex: 68 / M ADM Date: 05/03/24 Loc: HO.ED Attending Dr: Ordering Physician: Flo Fleming MD Date of Service: 05/03/24 Procedure(s): XR chest 1V Accession Number(s): [id number] cc: Flo Fleming MD; Veronica Gallardo MD [...] in OV> 05/03/24 1015 DD/ 0930 TD/TT: Professor Of Biological Sciences: PD Procedure Note Donotuseinterpreter, Image - 05/03/2024 [place] [address] XRay Report Signed Patient: Kristina MunozR#: [id number] : 1955cct:[id number] Age/Sex: 68 / MADM Date: 05/03/24 Loc: .ED Attending Dr: Ordering Physician: Flo Fleming MD Date of Service: 05/03/24 Procedure(s): XR chest 1V Accession Number(s): [id number] cc: Flo Fleming MD; Veronica Gallardo MD [...] in OV> 05/03/24 1015 DD/ 0930 TD/TT: Professor Of Biological Sciences: PD [facility] External Provider IMG XR PROCEDURES Final Result documented in this encounter Visit Diagnoses Diagnosis Hypertension, unspecified type documented in this encounter Additional Health Concerns Assessment Noted Time PHQ-9 Depression Total Score: 0 03/24/20 23 11:18 AM EDT documented as of this encounter Care Teams Bacteriologist Soil Relationship Specialty Start Date End Date Veronica Gallardo MD [address] [place] [address] PCP - General Family Medicine 08/09/12 Brien Vargas, Efrain [address] [place] [address] Pharmacist Internal Medicine 11/30/22 documented as of this encounter
--- NOTE | 2025-07-28 14:58 | MHC.CM.ED ---
Addendum entered by Paige Busch 07/28/25 16:09: Pt has been cleared to d/c to home: Pt has cellphone and will call family/friend for a ride. CM reviewed d/c plan w/pt who was eating a sandwich in the ED - pt verbalized understanding Addendum entered by Paige Busch 07/28/25 15:33: Pt does not have an actual PT eval order: Message sent to ED MD: if MD feels pt requires an eval, please enter order; if no eval is needed, pt can return to home w/existing services Original Note: Received consult for assessment of d/c needs: pt with high ED visit hx: Met with pt using remote sensing program manager: Pt states he resides alone and has 3 hr/day of [employer]GL[employer] ASSEM[employer] assistance for appointments and housekeeping. He also has a [facility] community CM. Explained to pt that he has a pending PT eval for assessment of gait/balance. Pt understands that PT will see him tomorrow and will assist w/d/c needs. Pt has a cell and will contact family/EYEGLASS ASSEMBLER to inform them of the plan. No referrals made at this time - pt may benefit from increased [facility] services/visits.
[2025-07-28 17:09] VITALS: BP 185/115; PULSE 66; RESP 18; TEMP 36.8; O2SAT 98
== END 2025-07-28 17:10 | disposition home or self-care (01) ==
PROVIDERS: Emergency Provider Emergency Medicine; PCP Family Medicine
DX: R53.1 Weakness (principal); I10 Essential (primary) hypertension; Z79.899 Other long term (current) drug therapy
CPT/HCPCS: 93005; 99284

== ENCOUNTER → 2025-07-28 13:01 | Outpatient (BNV) | payer OTHER, SELFPAY | PROVIDERS: Emergency Provider Emergency Medicine; PCP Family Medicine; Visit Provider Internal Medicine Cardiovascular Disease | DX: R53.1 Weakness (principal) | CPT/HCPCS: 93010 ==

== ENCOUNTER 2025-07-30 10:09 | Outpatient (AMB) | payer OTHER, SELFPAY ==
--- OUTSIDE RECORDS SUMMARY | 2025-07-30 09:15 | XMS_ITS | Encounter Summary ---
Author Organization [employer] Address [address] [facility] [address] 7t [place] [address] Care Team Providers Care Business Communications Instructor Name Role Phone Veronica Gallardo MD Primary Care Provider [phone] Brien Vargas PharmD Unavailable [phone] Earline Quinn RN Unavailable [phone] Encounter Details Date Type Department Care Team (Late st Contact Info) Description 07/30/2025 9:15 AM EDT Office Visit [facility] 230 [place], [place] [phone] Veronica Gallardo MD [address] [place], [place] [phone] Hypertension, unspecified type (Primary Dx); Stage 3 chronic kidney disease, unspecified whether stage 3a or 3b CKD (CMS/HCC) (HCC); Alcohol use; Routine screening for STI (sexually transmitted infection); Encounter for vaccination; Encounter for immunization Social History Tobacco Use Types Packs/Day Years [...] AM EDT documented as of this encounter Last Filed Vital Signs Vital Sign Reading Time Taken Comments Blood Pressure 140/91 07/30/2025 9:01 AM EDT Pulse 70 07/30/2025 9:01 AM EDT Temperature 36 C (96.8 F) 07/30/2025 9:01 AM EDT Respiratory Rate 21 07/30/2025 9:01 AM EDT Oxygen Saturation 97% 07/30/2025 9:01 AM EDT Inhaled Oxygen Concentration - - Weight 71.5 kg (157 lb 9.6 oz) 07/30/2025 9:01 A M EDT Height 175.3 cm (5' 9 ) 07/30/2025 9:01 AM EDT Body Mass Index 23.27 07/30/2025 9:01 AM EDT documented in this encounter Plan of Treatment Upcoming Encounters Date Type Department Care Team (Latest Contact Info) Description 08/12/2025 11:00 AM EST Medication Management [address] [address] Brien Vargas, [place] [address] 08/22/2025 1:00 PM EST Anticoagulation - Warfarin Visit [address] [phone] 09/02/2025 11:00 AM EST Office Visit [address] [address] Veronica Gallardo MD [address] [place] [address] [phone] 10/14/2025 10:00 AM EST Medication Management [address] [address] Brien Vargas, PharmD [place], [place] [phone] Scheduled Orders Name Type Priority Associated Diagnoses Orde r Schedule Syphilis Screen Lab Routine Routine screening for STI (sexually transmitted infection) Expected: 07/30/2025 (Approximate), Expires: 07/30/2026 Hepatitis C Antibody with Reflex to HCV, RNA, Quantitative, Real-Time PCR Lab Routine Routine screening for STI (sexually transmitted infection) Expected: 07/30/2025 (Approximate), Expires: 07/30/2026 Hepatitis B Surface Antibody, Qualitative Lab Routine Routine screening for STI (sexually transmitted infection) Expected: 07/30/2025 (Approximate), Expires: 07/30/2026 Hepatitis B Core Antibody, Total Lab Routine Routine screening for STI (sexually transmitted infection) Expected: 07/30/2025 (Approximate), Expires: 07/30/2026 Chlamydia/N. Gonorrhoeae RNA, TMA, Urogenitial Microbiology Routine Routine screening for STI (sexually transmitted infection) Expected: 07/30/2025 (Approximate), Expires: 07/30/2026 HIV-1/2 Antigen and Antibodies, Fourth Generation, with Reflexes Lab Routine Routine screening for STI (sexually transmitted infection) Expected: 07/30/2025 (Approximate), Expires: 07/30/2026 Hepatitis B surface antigen, EIA Lab Routine Routine screening for STI (sexually transmitted infection) Expected: 07/30/2025 (Approximate), Expires: 07/30/2026 documented as of this encounter Goals Goal Patient Goal Type Associated Problems Recent Progress Patient-Stated? Author Blood Pressure < 140/90 Blood Pressure 140/91( 025 9:01 AM EDT) No Brien Vargas, Efrain documented as of this encounter Visit Diagnoses Diagnosis Hypertension, unspecified type- Primary Stage 3 chronic kidney disease, unspecified whether stage 3a or 3b CKD (CMS/HCC) (HCC) Alcohol use Other problems related to lifestyle Routine screening for STI (sexually transmitted infection) Screening examination for venereal disease Encounter for vaccination Encounter for immunization documented in this encounter Additional Health Concerns Assessment Noted Time PHQ-9 Depression Total Score: 0 05/30/20 9:11 AM EDT documented as of this encounter Care Teams Business Communications Instructor Relationship Specialty Start Date End Date Veronica Gallardo MD [address] [place] [phone] PCP - General Family Medicine 08/09/12 Brien Vargas, PharmD [address] [place] [address] [phone] Pharmacist Internal Medicine 11/30/22 Earline Quinn, RENNY [address] [place] [address] Registered Nurse Family Medicine 07/29/25 documented as of this encounter
--- NOTE | 2025-07-30 10:14 | A.OFFVIS_ITS ---
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 He states he has bilateral leg pain. 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 Of note he was actually seen in our emergency department in September of 2022 for this left lower extremity DVT which appeared to be more iliofemoral at that time. This is chronic in nature as he does report that he has had it for over 5 years. He has been maintained on Coumadin. It has been affecting there daily activities including walking. It is noted more so in left leg. Patient denies any previous venous surgery or injections. Patient positive for DVT for over 5 years for which he is on Coumadin Patient denies any history of phlebitis. Trial of compression includes - [id number] They now present for vascular evaluation regarding their varicose veins. ON LICENSE OF [facility] Medical History Ascending aortic aneurysm Colon cancer screening Hemorrhoid Aortic aneurysm GERD (gastroesophageal reflux disease) Chronic anticoagulation Alcohol abuse Mood disorder Mood disorder due to a general medical condition Peripheral vascular disease DVT (deep venous thrombosis) Hyperhomocysteinemia CKD (chronic kidney disease) Depression Seizure Surgical History Hx of colonoscopy Hx of hernia repair Family History Paternal Grandmother Cancer Maternal Grandfather Cancer Paternal Aunt Cancer Social History Household Members: None Housing: Apartment Are you a primary managed care director to a significant other at home: No Do you presently have visiting nurse or other home services: No Alcohol intake: current Alcohol intake frequency: does not drink Alcohol type: beer Patient Tobacco Use Status: Never used Tobacco Advance Directives Date on File: 10/01/20 service: No Current occupational status: disabled Review of Systems Const Reports as per HPI ENT Reports no additional complaints Card Denies chest pain, Denies chest pain at rest and Denies chest pain with activity Resp Denies chest congestion and Denies cough GI Reports no additional complaints Musc Details: pain over varicosities, aching of lower extremities, swelling, cramping, heaviness and tiredness, itching Denies abnormal gait Skin/Breast Reports pruritus and Denies wounds Neuro Reports no additional complaints and Denies abnormal gait Psych Denies no additional complaints Physical Exam Const General: cooperative, healthy appearing and comfortable Orientation/consciousness: oriented to person, oriented to place and oriented to time Neck Carotids: no bruits Chest Chest palpation & inspection: normal inspection of the chest and normal palpation of entire chest wall Resp Effort & Inspection: normal respiratory effort and able to speak in complete sentences Cardio Rate: regular rate Heart sounds: S1 normal heart sound present and S2 normal heart sound present Peripheral pulses: Peripheral pulses 2+ throughout GI Inspection: Yes normal to inspection Skin Other: +2 edema, left greater than right CEAP Classification C4 - skin color changes Ep - Etiology Primary As - superficial veins P - reflux General skin exam: dry skin Neuro General: oriented to person, oriented to place and oriented to time Extrem Right lower extremity: full ROM, normal capillary refill and edema Left lower extremity: full ROM, normal capillary refill and edema Psych Mental Status: mental status grossly normal Assessment & Plan Assessment & Plan (1) Varicose veins of left lower extremity with inflammation: Code(s): I83.12 - Varicose veins of left lower extremity with inflammation Category: Medical Plan: In short, the patient has evidence of venous insufficiency. I have discussed the pathophysiology with the patient. In addition I have provided informational material regarding venous disease to the patient. We have discussed conservative measures including compression, elevation, and exercise. I have also provided a handout regarding appropriate use of compression stockings and where to purchase good compression stockings as well. I have taken the liberty of ordering venous insufficiency testing with the patient. They will follow up with me after testing. The patient had an opportunity to ask questions regarding the treatment plan. All questions were answered. Imaging studies, laboratory studies and physical exam results were discussed and reviewed in detail. No major barriers to understanding were identified. The patient expressed understanding and agreement with the above treatment plan. The patient is aware they should contact our office by phone for worsening of the current condition or the appearance of new symptoms. Thank you for allowing me to participate in the vascular care of this patient. If you have any questions or concerns regarding the treatment for the above condition please do not hesitate to contact me. The office telephone contact is [phone]. This note is constructed using voice recognition software. While every effort has been made to ensure accuracy, medical dosimetrist errors may have been included. Thank you for allowing me to participate in the care of your patient. Yours sincerely, Wayne Upton MD, FACS, R.P.V.I. Orders: Orders US venous duplex LE BI Today I83.12 - Varicose veins of left lower extremity with inflammation Coding Level of Care Code New Pt Level 4 (95115) Diagnoses Varicose veins of left lower extremity with inflammation I83.12
--- OUTSIDE RECORDS SUMMARY | 2025-07-30 11:56 | XMS_ITS | Encounter Summary ---
Author Organization [employer] Address [address] [facility] 7t [place] [address] Care Team Providers Care Revenue Tax Specialist Name Role Phone Veronica Gallardo MD Primary Care Provider [phone] Brien Vargas PharmD Unavailable [phone] Earline Quinn RN Unavailable [phone] Reason for Referral * Consultation (Routine) - Canceled Specialty Diagnoses / Procedures Referred By Joseph alvarado Referred To Contact Pharmacy Diagnoses Hypertension, unspecified type Veronica Gallardo MD [address] [place] [phone] Phone: tel: fax: Referral ID Status Reason Start Date Expiration Date V isits Requested Visits Authorized [id number] Canceled Consult and Treat 10/12/2024 10/12/2025 6 6 Encounter Details Date Type Department Care Team (Late st Contact Info) Description 10/12/2024 Orders Only [facility] [address] [place] [address] [phone] Veronica Gallardo MD [address] [place] [address] [phone] Hypertension, unspecified type (Primary Dx) Social History [...] Description 08/12/2025 11:00 AM EST Medication Management [address] [address] Brien Vargas, PharmD [address] [place] [address] 08/22/2025 1:00 PM EST Anticoagulation - Warfarin Visit [address] [address] 09/02/2025 11:00 AM EST Office Visit [address] [address] Veronica Gallardo MD [address] [place] [address] 10/14/2025 10:00 AM EST Medication Management [address] [address] Brien Vargas, PharmD [address] [place] [address] Scheduled Referrals Name Type Priority Associated Diagnoses Orde r Schedule Referral to Pharmacy CDTM Outpatient Referral Routine Hypertension, unspecified type Ordered: 10/12/2024 documented as of this encounter Goals Goal Patient Goal Type Associated Problems Recent Progress Patient-Stated? Author Blood Pressure < 140/90 Blood Pressure 140/91( 025 9:01 AM EDT) No Brien Vargas, PharmD documented as of this encounter Visit Diagnoses Diagnosis Hypertension, unspecified type- Primary documented in this encounter Additional Health Concerns Assessment Noted Time PHQ-9 Depression Total Score: 0 03/24/20 23 11:18 AM EDT documented as of this encounter Care Teams Revenue Tax Specialist Relationship Specialty Start Date End Date Veronica Gallardo MD [address] [place] [phone] PCP - General Family Medicine 08/09/12 Brien Vargas, PharmD [address] [place] [phone] Pharmacist Internal Medicine 11/30/22 Earline Quinn, RENNY [address] [place] [phone] Registered Nurse Family Medicine 07/29/25 documented as of this encounter
--- OUTSIDE RECORDS SUMMARY | 2025-07-30 11:56 | XMS_ITS | Encounter Summary ---
Author Organization [employer] Address [address] [facility] [address] 7[address] [place] [address] Care Team Providers Care Underwriting Specialist Name Role Phone Veronica Gallardo MD Primary Care Provider [phone] Brien Vargas PharmD Unavailable [phone] Earline Quinn RN Unavailable [phone] Reason for Visit * Reason Comments Med Refill Encounter Details Date Type Department Care Team (Late st Contact Info) Description 10/12/2023 Refill [facility] [address] [place], [place] [phone] Veronica Gallardo MD [address] [place], [place] [phone] Back pain with left-sided radiculopathy Social History [...] Description 08/12/2025 11:00 AM EST Medication Management [address] [address] Brien Vargas, PallaviD [address] [place] [address] 08/22/2025 1:00 PM EST Anticoagulation - Warfarin Visit [address] [address] 09/02/2025 11:00 AM EST Office Visit [address] [address] Veronica Gallardo MD [address] [place] [address] 10/14/2025 10:00 AM EST Medication Management [address] [address] Brien Vargas, PharmD [address] [place] [address] documented as of this encounter Goals Goal [...] documented as of this encounter Care Teams Underwriting Specialist Relationship Specialty Start Date End Date Veronica Gallardo MD [address] [place], [place] [phone] PCP - General Family Medicine 08/09/12 Brien Vargas PharmD [address] [place] [address] [phone] Pharmacist Internal Medicine 11/30/22 Earline Quinn, RENNY [address] [place] [address] [phone] Registered Nurse Family Medicine 07/29/25 documented as of this encounter
--- OUTSIDE RECORDS SUMMARY | 2025-07-30 11:56 | XMS_ITS | Encounter Summary ---
Author Organization [employer] Address [address] [facility] [address] 7t [place] [address] Care Team Providers Care Hydraulic Plumber Helper Name Role Phone Veronica Gallardo MD Primary Care Provider [phone] Brien Vargas PharmD Unavailable [phone] Earline Quinn RN Unavailable [phone] Reason for Visit * Reason Comments Med Refill Encounter Details Date Type Department Care Team (Late st Contact Info) Description 07/27/2025 Refill [facility] [address] [place], [place] [phone] Veronica Gallardo MD [address] [place], [place] [phone] Back pain with left-sided radiculopathy Social History [...] encounter Miscellaneous Notes * Telephone Encounter - Earline Quinn RN - 07/29/2025 2:20 PM EDT Pt follows with this nurse for his INR and coumadin dosing. Currently seen monthly d/t INRs being consistently at target and compliance in testing and dosing. Last seen 07/23/25 at which time INR was2.1. INR target 2-3. Queued refill. documented in this encounter Plan of Treatment Upcoming Encounters Date Type Department Care Team (Latest Contact Info) Description 08/12/2025 11:00 AM EST Medication Management [facility] [address] [place] [phone] Brien Vargas, PharmD [address] [place] [address] 08/22/2025 1:00 PM EST Anticoagulation - Warfarin Visit [address] [address] 09/02/2025 11:00 AM EST Office Visit [address] [address] Veronica Gallardo MD [address] [place] [address] 10/14/2025 10:00 AM EST Medication Management [address] [address] Brien Vargas, PharmD [address] [place] [address] documented as of this encounter Goals Goal Patient Goal Type Associated Problems Recent Progress Patient-Stated? Author Blood Pressure < 140/90 Blood Pressure 140/91( 025 9:01 AM EDT) No Brien Vargas, PharmDonte documented as of this encounter Visit Diagnoses Diagnosis Back pain with left-sided radiculopathy documented in this encounter Additional Health Concerns Assessment Noted Time PHQ-9 Depression Total Score: 0 05/30/20 9:11 AM EDT documented as of this encounter Care Teams Hydraulic Plumber Helper Relationship Specialty Start Date End Date Veronica Gallardo MD [address] [place] [address] [phone] PCP - General Family Medicine 08/09/12 Brien Vargas, PharmD [address] [place] [address] [phone] Pharmacist Internal Medicine 11/30/22 Earline Quinn, RENNY [address] [place] [address] [phone] Registered Nurse Family Medicine 07/29/25 documented as of this encounter
--- OUTSIDE RECORDS SUMMARY | 2025-07-30 11:56 | XMS_ITS | Encounter Summary ---
Author Organization [employer] [facility] Address [address] [facility] 7t [place] [address] Care Team Providers Care Sign Board Erector Name Role Phone Veronica Gallardo MD Primary Care Provider Brien Vargas PharmD Unavailable [phone] Earline Quinn RN Unavailable [phone] Encounter Details Date Type Department Care Team (Late st Contact Info) Description 09/09/2022 Orders Only [facility] MED[facility] [address] [place] [address] [phone] Veronica Gallardo MD [address] [place] [address] [phone] Social History Tobacco Use Types Packs/Day Years [...] Description 08/12/2025 11:00 AM EST Medication Management [facility] [address] [place] [address] [phone] Brien Vargas, PharmD [address] [place] [address] 08/22/2025 1:00 PM EST Anticoagulation - Warfarin Visit [address] [phone] 09/02/2025 11:00 AM EST Office Visit [address] [address] Veronica Gallardo MD [address] [place] [address] 10/14/2025 10:00 AM EST Medication Management [address] [address] Brien Vargas, PharmD [address] [place] [phone] documented as of this encounter Visit Diagnoses Not on filedocumented in this encounter Care Teams Sign Board Erector Relationship Specialty Start Date End Date Veronica Gallardo MD [address] [place] [address] [phone] PCP - General Family Medicine 08/09/12 Brien Vargas, PharmD [address] [place] [address] [phone] Pharmacist Internal Medicine 11/30/22 Earline Quinn, RENNY [address] [place] [address] [phone] Registered Nurse Family Medicine 07/29/25 documented as of this encounter
--- OUTSIDE RECORDS SUMMARY | 2025-07-30 11:56 | XMS_ITS | Encounter Summary ---
Author Organization [employer] Address [address] [facility] [address] 7t [place] [address] Care Team Providers Care Nickel Plater Name Role Phone Veronica Gallardo MD Primary Care Provider Brien Vargas PharmD Unavailable [phone] Earline Quinn RN Unavailable [phone] Reason for Visit * Reason Onset Date Comments Durable Medical Equipment 07/29/2025 Encounter Details Date Type Department Care Team (Late st Contact Info) Description 07/29/2025 Telephone [facility] [address] [place], [place] [phone] Veronica Gallardo MD [address] [place], [place] [phone] Durable Medical Equipment Social History Tobacco Use Types Packs/Day Years [...] the past 12 months, has t he [email or web address], gas, oil or water [employer] threatened to shut off services in your [...] encounter Miscellaneous Notes * Telephone Encounter - Jerry Rivero - 07/29/2025 2:11 PM EDT Tc [facility] requesting a hand held shower. Any questions contact pt at [phone] documented in this encounter Plan of Treatment Upcoming Encounters Date Type Department Care Team (Latest Contact Info) Description 08/12/2025 11:00 AM EST Medication Management [address] [address] Brien Vargas, PharmD [address] [place] [address] 08/22/2025 1:00 PM EST Anticoagulation - Warfarin Visit [address] [address] 09/02/2025 11:00 AM EST Office Visit [address] [phone] Veronica Gallardo MD [address] [place], [place] [phone] 10/14/2025 10:00 AM EST Medication Management [facility] [address] [place], [place] [phone] Brien Vargas, PharmD [address] [place] [address] documented as of this encounter Goals Goal [...] documented as of this encounter Care Teams Nickel Plater Relationship Specialty Start Date End Date Veronica Gallardo MD [address] [place] [address] [phone] PCP - General Family Medicine 08/09/12 Brien Vargas, PharmD [address] [place] [address] [phone] Pharmacist Internal Medicine 11/30/22 Eraline Quinn, RENNY [address] [place] [address] [phone] Registered Nurse Family Medicine 07/29/25 documented as of this encounter
--- OUTSIDE RECORDS SUMMARY | 2025-07-30 11:56 | XMS_ITS | Clinical Summary ---
Author Organization [employer] Address [address] [facility] [address] [place] [address] Care Team Providers Care Electrical Logging Engineer Name Role Phone Veronica Gallardo MD Primary Care Provider [phone] Brien Vargas PharmD Unavailable [phone] Earline Quinn RN Unavailable [phone] Allergies Active Allergy Reactions Criticality Noted Date [...] tablet 3 04/02/20 25 Active warfarin (Coumadin) 4 MG tablet [...] MORNING 90 tablet 1 06/26/20 25 Active warfarin (Coumadin) 1 MG tablet TAKE DIRECTED BY [facility]MADIN CLINIC 60 tablet 3 07/29/20 25 Active warfarin (Coumadin) 1 MG tablet TAKE DIRECTED BY COUMADIN CLINIC 60 tablet 3 04/04/20 25 025 Discontinued Active Problems Problem Noted Date [...] (12/12/2023 3:50 PM EST): - followed by [facility] urology - most recent renal US in Jun 2023 - continue surveillance Non-rheumatic aortic stenosis 06/03/2023 Assessment & Plan (06/03/2025 8:19 AM EDT): - most recent transthoracic echocardiogram on 09/06/24 showed mild to moderate aortic stenosis, and possible bicuspid aortic valve - continue following up with target network analyst Assessment & Plan (12/12/2023 3:47 PM EST): - most recent transthoracic echocardiogram on 09/05/23 showing mild-moderate aortic stenosis and trivial aortic regurgitation - continue following management recommendations by target network analyst Benign prostatic hyperplasia 03/28/2023 Overview (03/28/2023): -previously following with Urologist, last seen in 2018&2019 -will check PSA -will refer him back to Urologist for further evaluation Assessment & Plan (06/03/2025 8:25 AM EDT): - followed by [facility] urology, last seen in Jul 2024 - PSA has been normal level - continue terazosin and finasteride Assessment & Plan (06/21/2024 11:09 AM EDT): - followed by [facility] urology, last seen in Nov 2023 - PSA has been normal level - continue tamsulosin Assessment & Plan (12/12/2023 3:49 PM EST): - followed by [facility] urology, last seen in Nov 2023 - PSA has been normal level - continue tamsulosin Assessment & Plan (07/15/2023 6:41 AM EDT): - previously followed by urologist, last seen in 2017 - recently seen again by [facility] urology in May 2023 - [...] -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 -Due to Coumadin use, Rifampin was contraindicated. Pt was started on Isoniazid, but the treatment had to be interrupted multiple times because of elevated LFT. Pt was drinking alcohol excessively during the treatment. -His case was presented to [facility], and pt had a direct observation therapy. 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 -Due to Coumadin use, Rifampin was contraindicated. Pt was started on Isoniazid, but the treatment had to be interrupted multiple times because of elevated LFT. Pt was drinking alcohol excessively during the treatment. -His case was presented to [facility], and pt had a direct observation therapy. -He finally completed 12 weeks of 900mg INH/900mg Rifapentine/ B6 50mg on 02/14/2019 History of syphilis 11/19/2022 History of shingles 11/19/2022 Major depression 11/09/2022 History of alcohol use disorder 11/09/2022 Assessment & Plan (11/19/2022 5:42 PM EST): - graduated from AUD clinic - continue naltrexone - pt is aware of recovery support resources at [facility] Alcohol use disorder, modera te, in [...] (06/03/2025 8:25 AM EDT): - followed by palm gatherer, last seen in Jul 2024 - normal erythropoietin level - all other work-up has been normal Assessment & Plan (06/21/2024 11:09 AM EDT): - followed by palm gatherer, last seen in Jul 2023 - normal erythropoietin level - all other work-up has been normal Assessment & Plan (12/12/2023 3:53 PM EST): - followed by palm gatherer, last seen in Jul 2023 - normal erythropoietin level - all other work-up has been normal Assessment & Plan (07/15/2023 6:41 AM EDT): - evaluated by palm gatherer, last seen in January 2023 - normal erythropoietin level - all other work-up has been normal - US was ordered by palm gatherer; advised to complete evaluation Assessment & Plan (11/19/2022 5:28 PM EST): - evaluated by palm gatherer, last seen on 07/13/22 - normal erythropoietin level - all other work-up has been normal - most recent hematocrit 45 on 09/16/22 - US was ordered by palm gatherer; advised to complete evaluation 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 (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) use of anticoagulants 2021 Assessment & Plan (05/31/2025 12:19 AM EDT): - indication: recurrent / chronic DVT, question of hypercoagulable disorder (elevated homocysteine) -managed by [facility] -Most recent INR-->3.4 on 03/18/23 -Current [...] of hypercoagulable disorder (elevated homocysteine) -managed by [facility] -Most recent INR-->3.4 on 03/18/23 -Current [...] of hypercoagulable disorder (elevated homocysteine) -managed by [facility] -Most recent INR-->3.4 on 03/18/23 -Current [...] -Emphasized the importance of keeping appt with target network analyst; pt verbalized understanding Assessment & Plan (12/12/2023 3:07 PM EST): -Most recent TTE on 09/05/23 Normal EF, mild-mod aortic stenosis and trivial aortic regurgitation with possible bicuspid aortic valve. Ascending aorta at 42 mm -Continue working on risk factor management -Emphasized the importance of keeping appt with target network analyst; pt verbalized understanding Assessment & Plan (07/15/2023 6:32 AM EDT): - Echo on 03/31/22 EF 60-65% showed severely calcified aortic valve, stenosis and mild regurgitation (in HFCCA). - Emphasized the importance of keeping appt with target network analyst; pt verbalized understanding Assessment & Plan (11/09/2022 11:55 AM EST): - ECHO on 03/31/22 EF 60-65% showed severely calcified aortic valve, stenosis and mild regurgitation. -Pt was discharged from previous [employer] [employer] [facility] and will send to new [employer]. Alcohol use 11/16/2018 Stage 3 chronic kidney disease (CMS/HCC) 016 Assessment & Plan (06/03/2025 8:24 AM EDT): -Patient has missed several appointments with digital analyst, upcoming appt -09/10/16 Renal US wnl, no renal artery stenosis. -Hx elevated K with ACEI -Avoid NSAIDs / nephrotoxic drugs. -Use renal dosing. -Emphasized the importance of keeping appt Assessment & Plan (06/21/2024 11:09 AM EDT): -Referred back to digital analyst after last visit in Jul 2023 -Patient had an appointment in [facility], which was rescheduled for 01/09/24 -09/10/16 Renal US wnl, no renal artery stenosis. -Hx elevated K with ACEI -Avoid NSAIDs / nephrotoxic drugs. -Use renal dosing. -Emphasized the importance of keeping appt Assessment & Plan (12/12/2023 3:52 PM EST): -Referred back to digital analyst after last visit in Jul 2023 -Patient had an appointment in [facility], which was rescheduled for 01/09/24 -09/10/16 Renal US wnl, no renal artery stenosis. -Hx elevated K with ACEI -Avoid NSAIDs / nephrotoxic drugs. -Use renal dosing. -Emphasized the importance of keeping appt Assessment & Plan (07/15/2023 6:39 AM EDT): -Followed by digital analyst, last seen ? -Mildly elevated K. Monitor closely with ACEI. -09/10/16 Renal US wnl, no renal artery stenosis. -Avoid NSAIDs / nephrotoxic drugs. -Use renal dosing. -Emphasized the importance of keeping appt Assessment & Plan (03/24/2023 12:38 PM EDT): -Followed by digital analyst, last seen -Currently on lisinopril 5 mg daily. -Mildly elevated K. Monitor closely with ACEI. -Most recent INR-->3.0 on 11/09/22 -09/10/16 Renal US wnl, no renal artery stenosis. -Avoid NSAIDs / nephrotoxic drugs. -Use renal dosing. Assessment & Plan (11/19/2022 6:02 PM EST): -Followed by digital analyst, last seen -Currently on lisinopril 5 mg daily. -Mildly elevated K. Monitor closely with ACEI. -Most recent INR-->3.0 on 11/09/22 -09/10/16 Renal US wnl, no renal artery stenosis. -Avoid NSAIDs / nephrotoxic drugs. -Use renal dosing. Hypertension 09/02/2015 Assessment & Plan (06/03/2025 8:21 AM EDT): -Goal BP < 130/80 per ACC/AHA guideline -BP at goal -Comanaged with target network analyst, pharmD, and digital analyst -Continue working on life style modifications. -Continue amlodipine 10 mg daily -Continue hydralazine 50 mg tid -(Continue terazosin 5 mg daily for BPH with LUTS) --Treatment history: -Lisinopril was decreased to 2.5 mg daily after AAYUSH with hyperkalemia secondary to renal hypoperfusion in a setting of CKD in summer 2016. Completely discontinued by digital analyst -Most recent echo: 09/06/24 EF 60-65%. Mild - mod . Thoracic aortic aneurysm 4.2 cm Assessment & Plan (06/21/2024 11:09 AM EDT): -Goal BP < 140/90 per JNC-8, < 130/80 per ACC/AHA guideline -BP not at goal , ?adherence to medication -Comanaged with target network analyst, pharmD, and digital analyst -Continue working on life style modifications. -Continue amlodipine 10 mg daily -Continue hydralazine 50 mg tid --Treatment history: -Lisinopril was decreased to 2.5 mg daily after AAYUSH with hyperkalemia secondary to renal hypoperfusion in a setting of CKD in summer 2016. Completely discontinued by digital analyst -Most recent echo: 09/05/23 EF 60-65%. Mild . Thoracic aortic aneurysm 4.2 cm - Follow up in 3 mo or sooner if any problem arises Assessment & Plan (03/13/2024 10:47 AM EDT): -Goal BP < 140/90 per JNC-8, < 130/80 per ACC/AHA guideline -BP not at goal , ?adherence to medication -Comanaged with target network analyst, pharmD, and digital analyst -Continue working on life style modifications. -Continue amlodipine 10 mg daily -Continue hydralazine 50 mg tid --Treatment history: -Lisinopril was decreased to 2.5 mg daily after AAYUSH with hyperkalemia secondary to renal hypoperfusion in a setting of CKD in summer 2016. Completely discontinued by digital analyst -Most recent echo: 09/05/23 EF 60-65%. Mild . Thoracic aortic aneurysm 4.2 cm - Follow up in 3 mo or sooner if any problem arises Assessment & Plan (12/12/2023 3:05 PM EST): -Goal BP < 140/90 per JNC-8, < 130/80 per ACC/AHA guideline -BP not at goal , ?adherence to medication -Comanaged with target network analyst, pharmD, and digital analyst -Continue working on life style modifications. -Continue amlodipine 10 mg daily -Continue hydralazine 50 mg tid --Treatment history: -Lisinopril was decreased to 2.5 mg daily after AAYUSH with hyperkalemia secondary to renal hypoperfusion in a setting of CKD in summer 2016. Completely discontinued by digital analyst -Most recent echo: 09/05/23 EF 60-65%. Mild . Thoracic aortic aneurysm 4.2 cm - Follow up in 3 mo or sooner if any problem arises Assessment & Plan (07/15/2023 6:34 AM EDT): -Goal BP < 140/90 per JNC-8, < 130/80 per ACC/AHA guideline -BP not at goal , ?adherence to medication -Comanaged with target network analyst, pharmD, and digital analyst -Continue working on life style modifications. -Continue amlodipine 10 mg daily -Continue hydralazine 25 mg tid --Treatment history: -Lisinopril was decreased to 2.5 mg daily after AAYUSH with hyperkalemia secondary to renal hypoperfusion in a setting of CKD in summer 2016. Completely discontinued by digital analyst -Most recent echo: 03/31/22 EF 60-65%. Mild [...] We need to confirm this dosing with target network analyst. --Treatment history: -Lisinopril was decreased to 2.5 [...] We need to confirm this dosing with target network analyst. --Treatment history: -Lisinopril was decreased to 2.5 [...] EDT): Hx of elevated homocysteine. Evaluated by palm gatherer for hypercoagulable disorder. Evaluation is incomplete because he was on Coumadin. He was recommended indefinite warfarin treatment. Assessment & Plan (03/28/2023 1:04 PM EDT): Hx of elevated homocysteine. Evaluated by palm gatherer for hypercoagulable disorder. Evaluation is incomplete because he was on Coumadin. He was recommended indefinite warfarin treatment. Depressive disorder 11/24/2012 Assessment & Plan (12/12/2023 3:53 PM EST): - [facility] provider : Francisco Javier Forrest - Hx suicidal ideation - Lost his in 2014 due to pancreatic cancer, and his psychosocial health worsened - Continue buspirone and mirtazapine as prescribed by psychiatarist Assessment & Plan (2023 10:43 AM EDT): - [facility] provider : Francisco Javier Andre Hx suicidal ideation - Lost his in 2014 due to pancreatic cancer, and his psychosocial health worsened - Continue buspirone and mirtazapine as prescribed by psychiatarist Assessment & Plan (03/24/2023 12:38 PM EDT): - [facility] provider : Francisco Javier Andre Hx suicidal ideation - Lost his in 2014 due to pancreatic cancer, and his psychosocial health worsened - Continue buspirone and mirtazapine as prescribed by psychiatarist Assessment & Plan (11/19/2022 6:15 PM EST): - [facility] provider : Francisco Javier Andre [...] and warfarin dose adjustment are managed by [facility] Green team nurses -Most recent INR 2.3 on 06/18/23 -Continue following with [facility] Green team nurse for anticoagulation management Assessment & Plan (06/21/2024 11:08 AM EDT): -Recurrent and chronic DVT, mostly left side -Chronic left common femoral vein -Continue warfarin -INR monitoring and warfarin dose adjustment are managed by [facility] Green team nurses -Most recent INR 2.3 on 06/18/23 -Continue following with [facility] Green team nurse for anticoagulation management Assessment & Plan (03/13/2024 10:46 AM EDT): -Recurrent and chronic DVT, mostly left side -Chronic left common femoral vein -Continue warfarin -INR monitoring and warfarin dose adjustment are managed by [facility] Green team nurses -Most recent INR 2.3 on 06/18/23 -Continue following with [facility] Green team nurse for anticoagulation management Assessment & Plan (12/12/2023 3:04 PM EST): -Recurrent and chronic DVT, mostly left side -Chronic left common femoral vein -Continue warfarin -INR monitoring and warfarin dose adjustment are managed by [facility] Green team nurses -Most recent INR 2.3 on 06/18/23 -Continue following with [facility] team nurse for anticoagulation management Assessment & Plan (07/15/2023 6:37 AM EDT): -Recurrent and chronic DVT, mostly left side -Chronic left common femoral vein -Continue warfarin -INR monitoring and warfarin dose adjustment are managed by [facility] Green team nurses -Most recent INR 2.3 on 06/18/23 -Continue following with [facility] team nurse for anticoagulation management Assessment & Plan (03/24/2023 12:37 PM EDT): -Recurrent and chronic DVT, mostly left side -Chronic left common femoral vein -Continue warfarin -INR monitoring and warfarin dose adjustment are managed by [facility] Green team nurses -Most recent INR-->3.0 on 11/09/22 -Continue following with [facility] team nurse for anticoagulation management Assessment & Plan (11/19/2022 6:00 PM EST): -Recurrent and chronic DVT, mostly left side -Chronic left common femoral vein -Continue warfarin -INR monitoring and warfarin dose adjustment are managed by [facility] Green team nurses -Most recent INR-->3.0 on 11/09/22 -Continue following with [facility] team nurse for anticoagulation management Seizure disorder ([facility]) 03/23/2012 Assessment & Plan (05/31/2025 12:21 AM [...] Encounters Date Type Department Care Team Description 07/30/2025 9:15 AM EDT Office Visit [address] [address] Veronica Gallardo MD Hypertension, unspecified type (Primary Dx); Stage 3 chronic kidney disease, unspecified whether stage 3a or 3b CKD (CMS/HCC) (HCC); Alcohol use; Routine screening for STI (sexually transmitted infection); Encounter for vaccination; Encounter for immunization 07/30/2025 Travel 07/29/2025 Telephone [facility] [place] [phone] Veronica Gallardo MD Durable Medical Equipment 07/27/2025 Refill [facility] [place] [address] Veronica Gallardo MD Back pain with left-sided radiculopathy 07/26/2025 Telephone [facility] [place] [phone] Veronica Gallardo MD fyi 07/23/2025 11:00 AM EDT Clinical Support [facility] [place] [phone] Earline Quinn, RENNY 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 (current) use of anticoagulants 07/23/2025 Travel 07/18/2025 Orders Only GENERIC EXTERNAL DATA DEPARTMENT Provider, Generic External Data 07/15/2025 Orders Only GENERIC EXTERNAL DATA DEPARTMENT Provider, Generic External Data 06/26/2025 Refill [facility] [place] [address] Veronica Gallardo MD Hypertension, unspecified type; Intercostal pain 06/21/2025 10:30 AM EDT Clinical Support [place] [phone] Earline Quinn, RENNY 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 (current) use of anticoagulants 06/21/2025 Travel 05/30/2025 9:00 AM EDT Office Visit [facility] [place] [phone] Veronica Gallardo MD Hypertension, unspecified type (Primary [...] status unspecified, unspecified whether recurrent; Seizure disorder ([facility]); Chronic deep vein thrombosis (DVT) of femoral vein of left lower extremity ([facility]); nursing home (current) use of anticoagulants; Peripheral vascular disease ([facility]) 05/30/2025 Travel 05/30/2025 Refill [facility] [address] [place] [phone] Veronica Gallardo MD Back pain with left-sided radiculopathy 05/29/2025 Telephone [facility] [address] [place] [phone] Veronica Gallardo MD chart prep 05/24/2025 10:00 AM EDT Clinical Support [facility] [address] [place] [phone] Earline Quinn RN nursing home (current) use of anticoagulants 05/24/2025 Travel 05/11/2025 Orders Only GENERIC EXTERNAL DATA DEPARTMENT Provider, Generic External Data 05/06/2025 Telephone [facility] [address] [place] [phone] Veronica Gallardo MD 05/05/2025 Refill [facility] [address] [place] [address] [phone] Veronica Gallardo MD Hypertension, unspecified type 05/03/2025 10:00 AM EDT Office Visit [facility] [address] [place] [address] [phone] Kilo Julien MD Tinea cruris (Primary Dx) 05/03/2025 Travel from Last 3 Months Immunizations Immunization Administration Dates Next Due Hep A, Adult 10/15/2024,03/13/2024 INFLUENZA INJECTABLE QUADRIV ALANT CCIIV4 MDCK Multi-dose vial 10/01/2019 Influenza High-dose Quadriva lent Preservative Free 06/29/2023,09/01/2020 Influenza injectable quadriv alent IIV4 with preservative 06/30/2017,09/02/2015 Influenza injectable quadriv alent preservative free 07/28/2021,09/22/2016 Influenza, High Dose Seasona l, Preservative Free 07/30/2025,06/21/2024,08/21/2018 Influenza, IIV3, injectable 07/22/2011, 0 Influenza, Split (incl. jaylin fied surface antigen) 09/04/2013,06/06/2012 Influenza, seasonal, injecta ble, preservative free 08/06/2014 Pfizer Covid-19 Vaccine 12+ 07/30/2025, 5,03/13/2024 Pneumococcal Conjugate PCV 13 12/17/2019 Pneumococcal Polysaccharide [...] your housing situation today? I have primo william 05/30/[address] you li [...] Mass Index 23.27 07/30/2025 9:01 AM EDT Plan of Treatment Upcoming Encounters Date Type Department Care Team (Latest Contact Info) Description 08/12/2025 11:00 AM EST Medication Management [address] [address] Brien Vargas, PharmD [address] [place] [phone] 08/22/2025 1:00 PM EST Anticoagulation - Warfarin Visit [address] [address] 09/02/2025 11:00 AM EST Office Visit [address] [address] Veronica Gallardo MD [address] [place], [place] [phone] 10/14/2025 10:00 AM EST Medication Management [facility] [address] [place], [place] [phone] Brien Vargas, PharmD [address] [place], [place] [phone] Health Maintenance Due Date Last Done Comments CT Colonography 1955 Colonoscopy 1955 Colorectal Cancer Screening 1955 FIT DNA/Cologuard 1955 FIT 1955 FOBT 1955 Sigmoidoscopy 1955 Alcohol/Substance Use Screening 05/30/2026 05/30/2025 Depression Screening 05/30/2026 05/30/2025, 05/30/20 25 SDOH Screening 05/30/2026 05/30/2025 Tobacco Screening 07/30/2026 07/30/2025 DTaP/Tdap/Td Vaccines (3 - Td or Tdap) [...] 04/15/2025 , 06/21/2024, 03/24/2023, Additional history exists COVID-19 Vaccine Completed 07/30/2025, 03/2025, 03/13/2024, Additional history exists Influenza Vaccine Completed 07/30/2025, , 06/29/2023, Additional history exists HIB Vaccines Aged Out [...] 9:01 AM EDT) No Brien Vargas, Efrain Procedures Procedure Name Priority Date/Time Associated Diagnosis Comments POCT INR Routine 07/23/2025 10:44 AM EDT nursing home (current) use of anticoagulants HIGH SENSITIVITY TROPONIN I Routine 07/18/2025 4:42 PM EDT XR CHEST 2 VIEWS Routine 07/18/2025 2:50 PM EDT PSA, TOTAL Routine 07/15/2025 10:20 AM EDT POCT INR Routine 06/21/2025 10:48 AM EDT nursing home (current) use of anticoagulants POCT INR Routine 05/24/2025 9:37 AM EDT nursing home (current) use of anticoagulants HIGH SENSITIVITY TROPONIN [...] HIGH SENSITIVITY 18.7 <3.5 - 35.0 ng/L [facility] Comment:The Santana high sens itivity Troponin-I results should beused in conjunction with other diagnostic information suchas ECG, clinical observations and information, and patientsymptoms to aid in the diagnosis of MD. 07/18/2025 4:42 PM EDT 07/18/2025 4:45 PM EDT us Generic External Data Provider LAB BLOOD ORDERAB LES Final Result [facility] [address] [place] [phone] * XR Chest 2 Views (07/18/2025 2:50 PM EDT) Only the most recent of2 resultswithin the time period is included. Anatomical Region Laterality Modality Chest Radiographic Svitlana ging 07/18/2025 2:50 PM EDT Narrative 07/18/2025 3:05 PM EDT [address] [address] XRay Report Signed Patient: Chriss Munoz MR#: [id number] : 1955 Acct:[id number] Age/Sex: 70 / M ADM Date: 07/18/25 Loc: HO.ED Attending Dr: Ordering Physician: Freddy Craig DO Date of Service: 07/18/25 Procedure(s): XR chest 2V Accession Number(s): [id number] cc: Veronica Gallardo MD; Freddy Craig DO [...] Rex Lindo MD 07/18/2025 03:02 PM EDT Dictated By: Rex Lindo MD Signed By: <Electronically signed by Rex Lindo MD in OV> 07/18/25 1502 DD/ 1450 TD/TT: 07/18/25 1454 Purchase Price Analyst: Procedure Note Donotuseinterpreter, Image - 07/18/[address] [address] XRay Report Signed Patient: Kristina MunozR#: [id number] : 1955cct:[id number] Age/Sex: 70 / MADM Date: 07/18/25 Loc: HO.ED Attending Dr: Ordering Physician: Freddy Craig DO Date of Service: 07/18/25 Procedure(s): XR chest 2V Accession Number(s): [id number] cc: Veronica Gallardo MD; Freddy Craig DO [...] Rex Lindo MD 07/18/2025 03:02 PM EDT Dictated By: Rex Lindo MD Signed By: <Electronically signed by Rex Lindo MD in OV> 07/18/25 1502 DD/ 1450 TD/TT: 07/18/25 1454 Purchase Price Analyst: [facility] External Provider IMG XR PROCEDURES Final Result * PSA,Total (07/15/2025 10:20 AM EDT) Prostate Specific Antigen 2.82 <0.05 - 4.0 ng/mL [facility] Comment:PSA methodology: Shanika Beck i ChemiluminescentMicroparticle Immunoassay (CMIA) 07/15/2025 10:2 0 AM EDT 07/15/2025 10:20 AM EDT us Generic External Data Provider LAB BLOOD ORDERAB LES Final Result Performing Organization Address [facility] [facility] Co de Phone Number [facility] [address] [place] [phone] * Lipid Panel with Reflex to Direct LDL (04/15/2025 9:10 AM EDT) Triglycerides 107 <150 mg/dL [facility] Comment:Desirable Triglyceri de: less than 150 mg/dLBorderline High Triglyceride 150-199 mg/dLHigh Triglyceride: 200-499 mg/dLVery High Triglyceride: greater than or equal to 5OO mg/dL Cholesterol 168 <200 mg/dL [facility] Comment:Desirable Cholestero l: less than 200 mg/dLBorderline High Cholesterol: 200-239 mg/dLHigh Cholesterol: greater than 239 mg/dL LDL Cholesterol Calculated 91 <100 mg/dL [facility] Comment:Desirable LDL: less than 100 mg/dLNear Optimal/Above Optimal LDL: 110- 129 mg/dLBorderline High LDL: 130-159 mg/dLHigh LDL: 160-189 mg/dLVery High LDL: greater than or equal to 190 mg/dL HDL Cholesterol 56 >40 mg/dL [facility] Comment:Desirable HDL: great er than 40 mg/dL Note: This HDL assay may give artificially low results in patients with liver disease. Blood 04/15/2025 9:10 AM EDT 04/15/2025 11:17 AM EDT us Veronica Gallardo MD LAB BLOOD ORDERABLES Final Resul t Performing Organization Address City/[facility]/ZIP Co de Phone Number [facility] [address] [place] [address] [phone] * Hepatitis C Antibody with Reflex to HCV, RNA, Quantitative, Real-Time PCR (04/15/2025 9:10 AM EDT) Hepatitis C Antibody Nonreactive Nonreactive [facility] Comment:Antibodies to HCV no t detected; does not exclude early acuteHCV infection. Venous blood specimen / Unknown 04/15/2025 9:10 AM EDT 04/15/2025 11:17 AM EDT Veronica Gallardo MD LAB BLOOD ORDERABLES Final Resul t [facility] [address] [place] [address] [phone] from Last 3 Months or Most Recently Relevant to Health Maintenance Insurance [facility] (O D-SNP) JOSE TAPIA [id number] Care Teams Electrical Logging Engineer Relationship Specialty Start Date End Date Veronica Gallardo MD [address] [place] [address] PCP - General Family Medicine 08/09/12 Brien Vargas, PharmD [address] [place] [address] Pharmacist Internal Medicine 11/30/22 Earline Quinn, RN [address] [place] [address] Registered Nurse Family Medicine 07/29/25
--- OUTSIDE RECORDS SUMMARY | 2025-07-30 11:56 | XMS_ITS | Encounter Summary ---
Author Organization [employer] Address [address] [place] [address] Care Team Providers Care Assistant Tennis Professional Name Role Phone Veronica Gallardo MD Primary Care Provider [phone] Brien Vargas PharmD Unavailable [phone] Earline Quinn RN Unavailable [phone] Reason for Visit * Reason Comments Med Refill Encounter Details Date Type Department Care Team (Late st Contact Info) Description 08/14/2023 Refill [facility] [address] [place], [place] [phone] Brien Vargas, PharmD [address] [place], [place] [phone] Essential hypertension Social History Tobacco Use Types [...] Vargas PharmD - 08/23/2023 11:57 AM EST [facility] will send 1 month fill of hydralazine 25 mg PO TID. Patient rescheduled last cardiology and nephrology visits. Needs to keep upcoming CDTM visit 09/09/2023. documented in this encounter Plan of Treatment Upcoming Encounters Date Type Department Care Team (Latest Contact Info) Description 08/12/2025 11:00 AM EST Medication Management [facility] MEDICINE [address] [place] [address] Brien Vargas PharmD [address] [place] [address] 08/22/2025 1:00 PM EST Anticoagulation - Warfarin Visit [facility] MEDICINE [address] [place] [address] 09/02/2025 11:00 AM EST Office Visit [address] [address] Veronica Gallardo MD [address] [place] [address] 10/14/2025 10:00 AM EST Medication Management [facility] MEDICINE [address] [place] [address] Brien Vargas PharmD [address] [place] [address] documented as of this encounter Goals Goal [...] as of this encounter Care Teams Assistant Tennis Professional Relationship Specialty Start Date End Date Veronica Gallardo MD [address] [place] [address] PCP - General Family Medicine 08/09/12 Brien Vargas, PharmD [address] [place] [address] Pharmacist Internal Medicine 11/30/22 Earline Quinn, RENNY [address] [place] [address] Registered Nurse Family Medicine 07/29/25 documented as of this encounter
--- OUTSIDE RECORDS SUMMARY | 2025-07-30 11:56 | XMS_ITS | Encounter Summary ---
Author Organization [employer] Address [address]t [place] [address] Care Team Providers Care Irrigation Laborer Name Role Phone Veronica Gallardo MD Primary Care Provider [phone] Brien Vargas PharmD Unavailable [phone] Earline Quinn RN Unavailable [phone] Encounter Details Date Type Department Care Team (Latest Contact Info) Description 07/30/2025 Travel Social History Tobacco Use Types Packs/Day [...] is your housing situation today? I have primojatinder thomas 05/30/[address] you [...] 08/12/2025 11:00 AM EST Medication Management [address] [address] Brien Vargas, PharmD [address] [place] [address] 08/22/2025 1:00 PM EST Anticoagulation - Warfarin Visit [address] [address] 09/02/2025 11:00 AM EST Office Visit [address] [address] Veronica Gallardo MD [address] [place] [address] 10/14/2025 10:00 AM EST Medication Management [address] [address] Brien Vargas, PharmD [address] [place] [address] documented as of this encounter Goals Goal [...] documented as of this encounter Care Teams Irrigation Laborer Relationship Specialty Start Date End Date Veronica Gallardo MD [address] [place] [phone] PCP - General Family Medicine 08/09/12 Brien Vargas, PharmD [address] [place] [address] Pharmacist Internal Medicine 11/30/22 Earline Quinn, RN [address] [place] [address] Registered Nurse Family Medicine 07/29/25 documented as of this encounter
--- OUTSIDE RECORDS SUMMARY | 2025-07-30 11:56 | XMS_ITS | Encounter Summary ---
Author Organization [employer] [facility] Address [address] [facility] 7t [place] [address] Care Team Providers Care Arcade Games Mechanic Name Role Phone Veronica Gallardo MD Primary Care Provider [phone] Brien Vargas PharmD Unavailable [phone] Earline Quinn RN Unavailable [phone] Reason for Visit * Reason Comments Med Refill Encounter Details Date Type Department Care Team (Late st Contact Info) Description 01/14/2023 Refill [facility] MEDICINE [address] [place] [address] Estefania Gilbert MD [address] [place] [address] [phone] Social History Tobacco Use Types Packs/Day Years [...] 11:00 AM EST Medication Management [facility] MEDICINE [address] [place] [address] [phone] Brien Vargas, PharmD [address] [place] [address] 08/22/2025 1:00 PM EST Anticoagulation - Warfarin Visit [address] [address] 09/02/2025 11:00 AM EST Office Visit [address] [address] Veronica Gallardo MD [address] [place] [address] 10/14/2025 10:00 AM EST Medication Management [address] [phone] Brien Vargas PharmD [address] [place] [address] documented as of this encounter Goals Goal Patient Goal Type Associated Problems Recent Progress Patient-Stated? Author Blood Pressure < 140/90 Blood Pressure 140/91( 025 9:01 AM EDT) No Brien Vargas PharmD documented as of this encounter Visit Diagnoses Not on filedocumented in this encounter Care Teams Arcade Games Mechanic Relationship Specialty Start Date End Date Veronica Gallardo MD [address] [place] [address] PCP - General Family Medicine 08/09/12 Brien Vargas PharmD [address] [place] [address] Pharmacist Internal Medicine 11/30/22 Earline Quinn, RENNY [address] [place] [address] Registered Nurse Family Medicine 07/29/25 documented as of this encounter
--- OUTSIDE RECORDS SUMMARY | 2025-07-30 11:56 | XMS_ITS | Encounter Summary ---
Author Organization [employer] Address [address] 7t [place] [address] Care Team Providers Care Dairy Products Maker Name Role Phone Veronica Gallardo MD Primary Care Provider Brien Vargas PharmD Unavailable [phone] Earline Quinn RN Unavailable [phone] Encounter Details Date Type Department Care Team (Late st Contact Info) Description 04/25/2024 Orders Only [facility] MEDICINE [address] [place], [place] [phone] Veronica Gallardo MD [address] [place], [place] [phone] Hypertension, unspecified type Social History Tobacco Use [...] Description 08/12/2025 11:00 AM EST Medication Management [address] [address] Brien Vargas, PharmD [address] [place] [address] 08/22/2025 1:00 PM EST Anticoagulation - Warfarin Visit [address] [address] 09/02/2025 11:00 AM EST Office Visit [address] [address] Veronica Gallardo MD [address] [place] [address] 10/14/2025 10:00 AM EST Medication Management [address] [address] Brien Vargas, PharmD [address] [place] [address] documented as of this encounter Goals Goal Patient Goal Type Associated Problems Recent Progress Patient-Stated? Author Blood Pressure < 140/90 Blood Pressure 140/91( 025 9:01 AM EDT) No Brien Vargas, PharmDonte documented as of this encounter Procedures Procedure Name Priority Date/Time Associated Diagnosis Comments XR CHEST 1 VIEW Routine 05/03/2024 9:30 AM EDT documented in this encounter Results * XR Chest 1 View (05/03/2024 9:30 AM EDT) Anatomical Region Laterality Modality Chest Radiographic Svitlana ging 05/03/2024 9:30 AM EDT Narrative 05/03/2024 10:18 AM EDT [address] [address] XRay Report Signed Patient: Chriss Munoz MR#: [id number] : 1955 Acct:[id number] Age/Sex: 68 / M ADM Date: 05/03/24 Loc: HO.ED Attending Dr: Ordering Physician: Flo Fleming MD Date of Service: 05/03/24 Procedure(s): XR chest 1V Accession Number(s): [id number] cc: Flo Fleming MD; Veronica Gallardo MD [...] in OV> 05/03/24 1015 DD/ 0930 TD/TT: Rolled Oats Mill Operator: PD Procedure Note Donotuseinterpreter, Image - 05/03/[address] [address] XRay Report Signed Patient: Kristina MunozR#: [id number] : 1955cct:[id number] Age/Sex: 68 / MADM Date: 05/03/24 Loc: HO.ED Attending Dr: Ordering Physician: Flo Fleming MD Date of Service: 05/03/24 Procedure(s): XR chest 1V Accession Number(s): [id number] cc: Flo Fleming MD; Veronica Gallardo MD [...] in OV> 05/03/24 1015 DD/ 0930 TD/TT: Rolled Oats Mill Operator: PD [facility] External Provider IMG XR PROCEDURES Final Result documented in this encounter Visit Diagnoses Diagnosis Hypertension, unspecified type documented in this encounter Additional Health Concerns Assessment Noted Time PHQ-9 Depression Total Score: 0 03/24/20 11:18 AM EDT documented as of this encounter Care Teams Dairy Products Maker Relationship Specialty Start Date End Date Veronica Gallardo MD [address] [place] [address] PCP - General Family Medicine 08/09/12 Brien Vargas PharmD [address] [place] [address] Pharmacist Internal Medicine 11/30/22 Earline Quinn, RENNY [address] [place] [address] Registered Nurse Family Medicine 07/29/25 documented as of this encounter
--- OUTSIDE RECORDS SUMMARY | 2025-07-30 11:56 | XMS_ITS | Encounter Summary ---
Author Organization [employer] Address [address]t [place] [address] Care Team Providers Care Television Repairman Name Role Phone Veronica Gallardo MD Primary Care Provider [phone] Brien Vargas PharmD Unavailable [phone] Earline Quinn RN Unavailable [phone] Encounter Details Date Type Department Care Team (Late st Contact Info) Description 11/04/2023 Orders Only [facility] MEDICINE [address] [place], [place] [phone] Veronica Gallardo MD [address] [place], [place] [phone] Alcohol use disorder, moderate, in early remission [...] Description 08/12/2025 11:00 AM EST Medication Management [address] [address] Brien Vargas, PallaviD [address] [place] [address] 08/22/2025 1:00 PM EST Anticoagulation - Warfarin Visit [address] [address] 09/02/2025 11:00 AM EST Office Visit [address] [address] Veronica Gallardo MD [address] [place] [address] 10/14/2025 10:00 AM EST Medication Management [address] [address] Brien Vargas, PharmD [address] [place] [address] documented as of this encounter Goals Goal Patient Goal Type Associated Problems Recent Progress Patient-Stated? Author Blood Pressure < 140/90 Blood Pressure 140/91( 025 9:01 AM EDT) No Brien Vargas PharmD documented as of this encounter Visit Diagnoses Diagnosis Alcohol use disorder, moderate, in early remission (CMS/HCC) ([facility])- Primary documented in this encounter Additional Health Concerns Assessment Noted Time PHQ-9 Depression Total Score: 0 03/24/20 11:18 AM EDT documented as of this encounter Care Teams Television Repairman Relationship Specialty Start Date End Date Veronica Gallardo MD [address] [place], [place] [phone] PCP - General Family Medicine 08/09/12 Brien Vargas, PallaviD [address] [place], [place] [phone] Pharmacist Internal Medicine 11/30/22 Earline Quinn, RENNY [address] [place], [place] [phone] Registered Nurse Family Medicine 07/29/25 documented as of this encounter
--- OUTSIDE RECORDS SUMMARY | 2025-07-30 11:56 | XMS_ITS | Encounter Summary ---
Author Organization [employer] Address [address] [place] [address] Care Team Providers Care Gas Generator Operator Name Role Phone Veronica Gallardo MD Primary Care Provider [phone] Brien Vargas PharmD Unavailable [phone] Earline Quinn RN Unavailable [phone] Encounter Details Date Type Department Care Team (Late st Contact Info) Description 10/12/2022 Orders Only [facility] PEDS [address] [place], [place] [phone] Deya Barber LPN Social History Tobacco Use [...] 11:00 AM EST Medication Management [facility] MEDICINE [address] [place], [place] [phone] Brien Vargas, PharmD [address] [place], [place] [phone] 08/22/2025 1:00 PM EST Anticoagulation - Warfarin Visit [address] [address] 09/02/2025 11:00 AM EST Office Visit [address] [address] Veronica Gallardo MD [facility] [place] [address] 10/14/2025 10:00 AM EST Medication Management [address] [address] Brien Vargas, PharmD [address] [place] [address] documented as of this encounter Visit Diagnoses Not on filedocumented in this encounter Care Teams Gas Generator Operator Relationship Specialty Start Date End Date Veronica Gallardo MD [address] [place] [address] [phone] PCP - General Family Medicine 08/09/12 Brien Vargas, PharmD [address] [place] [address] [phone] Pharmacist Internal Medicine 11/30/22 Earline Quinn, RENNY [address] [place] [address] [phone] Registered Nurse Family Medicine 07/29/25 documented as of this encounter
--- OUTSIDE RECORDS SUMMARY | 2025-07-30 11:56 | XMS_ITS | Encounter Summary ---
Author Organization [employer] [facility] Address [address] 7t [place] [address] Care Team Providers Care First Cook Name Role Phone Veronica Gallardo MD Primary Care Provider [phone] Brien Vargas PharmD Unavailable [phone] Earline Quinn RN Unavailable [phone] Encounter Details Date Type Department Care Team (Late st Contact Info) Description 06/27/2023 Telephone [facility] MEDICINE [address] [place] [address] [phone] Veronica Gallardo MD [address] [place] [address] [phone] Social History Tobacco Use Types Packs/Day Years [...] Description 08/12/2025 11:00 AM EST Medication Management [facility] MEDICINE [address] [place] [address] [phone] Brien Vargas, PharmD [address] [place] [address] [phone] 08/22/2025 1:00 PM EST Anticoagulation - Warfarin Visit [address] [phone] 09/02/2025 11:00 AM EST Office Visit [address] [address] Veronica Gallardo MD [address] [place] [address] 10/14/2025 10:00 AM EST Medication Management [address] [address] Brien Vargas, PharmD [address] [place] [address] documented as of this encounter Goals Goal [...] documented as of this encounter Care Teams First Cook Relationship Specialty Start Date End Date Veronica Gallardo MD [address] [place] [address] [phone] PCP - General Family Medicine 08/09/12 Brien Vargas, PharmD [address] [place] [address] [phone] Pharmacist Internal Medicine 11/30/22 Earline Quinn, RENNY [address] [place] [address] [phone] Registered Nurse Family Medicine 07/29/25 documented as of this encounter
--- OUTSIDE RECORDS SUMMARY | 2025-07-30 11:56 | XMS_ITS | Encounter Summary ---
Author Organization [employer] Address [address] [place] [address] Care Team Providers Care Coo & Co Founder Name Role Phone Veronica Gallardo MD Primary Care Provider [phone] Brien Vargas PharmD Unavailable [phone] Earline Quinn RN Unavailable [phone] Encounter Details Date Type Department Care Team (Late st Contact Info) Description 04/02/2025 Orders Only [facility] MEDICINE [address] [place], [place] [phone] Veronica Gallardo MD [address] [place], [place] [phone] Hypertension, unspecified type (Primary Dx); Stage 3 [...] housing situation today? I have primo william 03/13/[address] you li [...] Description 08/12/2025 11:00 AM EST Medication Management [address] [address] Brien Vargas, PharmD [address] [place] [address] 08/22/2025 1:00 PM EST Anticoagulation - Warfarin Visit [address] [address] 09/02/2025 11:00 AM EST Office Visit [address] [address] Veronica Gallardo MD [address] [place] [address] 10/14/2025 10:00 AM EST Medication Management [address] [address] Brien Vargas, PharmD [address] [place] [address] Scheduled Orders Name Type Priority Associated Diagnoses Orde r Schedule Comprehensive Metabolic Panel Lab Routine Hypertension, unspecified type Expected: 04/02/2025 (Approximate), Expires: 04/02/2026 Albumin, Random Urine W/Creatinine Lab Routine Hypertension, unspecified type Expected: 04/02/2025 (Approximate), Expires: 04/02/2026 CBC auto differential Lab Routine Erythrocytosis Expected: 04/02/2025 (Approximate), Expires: 04/02/2026 documented as [...] surface antigen, EIA (04/15/2025 9:10 AM EDT) Pathologist [facility] Hepatitis B Surface Ag Negative Negative [facility] Venous blood specimen / Unknown 04/15/2025 9:10 AM EDT 04/15/2025 11:17 AM EDT us Veronica Gallardo MD LAB BLOOD ORDERABLES Final Resul t Performing Organization Address City/[facility]/ZIP Co de Phone Number [facility] [address] [place] [address] [phone] * HIV-1/2 Antigen and Antibodies, Fourth Generation, with Reflexes (04/15/2025 9:10 AM EDT) [facility] HIV AB/AG Nonreactive Nonreactive [facility] Comment:HIV-1 p24 Ag and/or HIV-1/HIV-2 Ab not detected.A test result that is nonreactive does not exclude thepossibility of exposure to or infection with HIV-1 and/orHIV-2. Nonreactive results in this assay for individualswith prior exposure to HIV-1 and/or HIV-2 may be due toantigen and antibody levels that are below the limit ofdetection of this assay.The Visual [id number] HIV Ag/Ab Combo assay result andsupplemental assay results should be interpreted inconjunction with the patient's clinical presentation,history and other laboratory results. If the results areinconsistent with clinical evidence, additional testing issuggested to confirm the result. Venous blood specimen / Unknown 04/15/2025 9:10 AM EDT 04/15/2025 11:17 AM EDT us Veronica Gallardo MD LAB BLOOD ORDERABLES Final Resul t Performing Organization Address City/[facility]/ZIP Co de Phone Number [facility] [address] [place] [address] [phone] * Hepatitis C Antibody with Reflex to HCV, RNA, Quantitative, Real-Time PCR (04/15/2025 9:10 AM EDT) Pathologist [facility] Hepatitis C Antibody Nonreactive Nonreactive [facility] Comment:Antibodies to HCV no t detected; does not exclude early acuteHCV infection. Venous blood specimen / Unknown 04/15/2025 9:10 AM EDT 04/15/2025 11:17 AM EDT us Veronica Gallardo MD LAB BLOOD ORDERABLES Final Resul t Performing Organization Address City/[facility] Co de Phone Number [facility] [address] [place] [phone] * Syphilis Screen (04/15/2025 9:10 AM EDT) Syphilis Screen Nonreactive Nonreactive [facility] 04/15/2025 9:10 AM EDT 04/15/2025 6:02 PM EDT us Veronica Gallardo MD LAB BLOOD ORDERABLES Final Resul t Performing Organization Address [facility] Co de Phone Number [facility] [address] [place] [phone] * Vitamin B12 (Cobalamin) and Folate Panel, Serum (04/15/2025 9:10 AM EDT) Vitamin B12 224 200 - 900 pg/mL [facility] Comment:NORMAL 200-900 PG/ML INDETERMINATE 160-199 PG/ML DEFICIENT < 160 PG/ML Folate 12.8 > or = 4.0 ng/mL [facility] Comment:Reference Values:> o r = 4.0 ng/mL< 4.0 ng/mL suggests folate deficiency Methotrexate, aminopterin and folinic acid(leucovorin) are chemotherapeutic agents whose molecularstructures are similar to folate; therefore, the Architectfolate assay cannot be used for patients using these drugs. Blood 04/15/2025 9:10 AM EDT 04/15/2025 11:17 AM EDT us Veronica Gallardo MD LAB BLOOD ORDERABLES Final Resul t Performing Organization Address City/[facility] Co de Phone Number [facility] [address] [place] [address] [phone] * Vitamin D, 25-Hydroxy, Total, Immunoassay (04/15/2025 9:10 AM EDT) Vitamin D 25-OH Total 42.5 >30 ng/mL [facility] Comment: Health Based Reference Values*< 20 ng/mL [id number] ng/mL Insufficient> 30 ng/mL Sufficient*Ken COLEMAN. N [...] MD LAB BLOOD ORDERABLES Final Resul t [facility] [address] [place] [address] [phone] * Lipid Panel with Reflex to Direct LDL (04/15/2025 9:10 AM EDT) Triglycerides 107 <150 mg/dL [facility] Comment:Desirable Triglyceri de: less than 150 mg/dLBorderline High Triglyceride 150-199 mg/dLHigh Triglyceride: 200-499 mg/dLVery High Triglyceride: greater than or equal to 5OO mg/dL Cholesterol 168 <200 mg/dL [facility] Comment:Desirable Cholestero l: less than 200 mg/dLBorderline High Cholesterol: 200-239 mg/dLHigh Cholesterol: greater than 239 mg/dL LDL Cholesterol Calculated 91 <100 mg/dL [facility] Comment:Desirable LDL: less than 100 mg/dLNear Optimal/Above Optimal LDL: 110- 129 mg/dLBorderline High LDL: 130-159 mg/dLHigh LDL: 160-189 mg/dLVery High LDL: greater than or equal to 190 mg/dL HDL Cholesterol 56 >40 mg/dL [facility] Comment:Desirable HDL: great er than 40 mg/dL Note: This HDL assay may give artificially low results in patients with liver disease. Blood 04/15/2025 9:10 AM EDT 04/15/2025 11:17 AM EDT us Veronica Gallardo MD LAB BLOOD ORDERABLES Final Resul t [facility] [address] [place] [phone] * Hemoglobin A1c (04/15/2025 9:10 AM EDT) Hemoglobin A1c 5.3 <6.0 % [facility] Comment:Hemoglobin A1C Refer ence Range Adults: 4.8 - 6.0 % Non diabetic: < 6.0 % Goal: < 7.0 %Additional Action Suggested: > 8.0 %Note: Hemoglobin A1c results are invalid for patients with abnormal amounts of HbF. Blood transfusions may impact the HbA1c concentration in the patient sample. Estimated Average Glucose 105 mg/dL [facility] Comment:eAG = Estimated ave rage glucose which is %A1C expressed asaverage glucose, using the formula of the D9Q-QybvqvaZudhaen Glucose study (ADAG), Diabetes Care, Vol.31,#8,May. 2007 Blood Venous blood specimen / Unknown 04/15/2025 9:10 AM EDT 04/15/2025 11:17 AM EDT us Veronica Gallardo MD LAB BLOOD ORDERABLES Final Resul t Performing Organization Address City/[facility]/ZIP Co de Phone Number [facility] [address] [place] [address] [phone] * TSH with Reflex to Free T4 (04/15/2025 9:10 AM EDT) TSH reflex Free T4 2.74 0.32 - 4.0 uIU/mL [facility] Blood 04/15/2025 9:10 AM EDT 04/15/2025 11:17 AM EDT us Veronica Gallardo MD LAB BLOOD ORDERABLES Final Resul t Performing Organization Address [facility] Co de Phone Number [facility] [address] [place] [phone] documented in this encounter Visit Diagnoses Diagnosis Hypertension, unspecified type- Primary Stage 3 chronic kidney disease, unspecified whether stage 3a or 3b CKD ([facility]) ([facility]) Erythrocytosis Polycythemia, secondary Dyslipidemia Other and unspecified hyperlipidemia Vitamin D deficiency Alcohol use disorder, moderate, in early remission ([facility]) ([facility]) Screening for diabetes mellitus Routine screening for STI (sexually transmitted infection) Screening examination for venereal disease documented in this encounter Additional Health Concerns Assessment Noted Time PHQ-9 Depression Total Score: 0 03/24/20 23 11:18 AM EDT documented as of this encounter Care Teams Coo & Co Founder Relationship Specialty Start Date End Date Veronica Gallardo MD [address] [place] [phone] PCP - General Family Medicine 08/09/12 Brien Vargas, PharmD [address] [place] [address] Pharmacist Internal Medicine 11/30/22 Earline Quinn, RENNY [address] [place] [address] Registered Nurse Family Medicine 07/29/25 documented as of this encounter
--- OUTSIDE RECORDS SUMMARY | 2025-07-30 11:56 | XMS_ITS | Encounter Summary ---
Author Organization [employer] Address [address] [place] [address] Care Team Providers Care Mat Machine Tender Name Role Phone Veronica Gallardo MD Primary Care Provider [phone] Brien Vargas PharmD Unavailable [phone] Reason for Visit * Reason Onset Date Comments fyi 07/26/2025 Encounter Details Date Type Department Care Team ([facility] st Contact Info) Description 07/26/2025 Telephone [facility] MEDICINE [address] [place], [place] [phone] Veronica Gallardo MD [address] [place], [place] [phone] fyi Social History Tobacco Use Types Packs/Day [...] PM EDT Tc from Monique Vázquez at [facility] stating pt was [facility] management Contact Monique at [phone] (can leave detailed VM) documented in this encounter Plan of Treatment Upcoming Encounters Date Type Department Care Team (Latest Contact Info) Description 08/12/2025 11:00 AM EST Medication Management [facility] [address] [place] [address] Brien Vargas, PharmD [address] [place], [place] [phone] 08/22/2025 1:00 PM EST Anticoagulation - Warfarin Visit [facility] [place] [place] [phone] 09/02/2025 11:00 AM EST Office Visit [facility] [place] [phone] Veronica Gallardo MD Brisa [facility] [place] [address] 10/14/2025 10:00 AM EST Medication Management [address] [place] [address] Brien Vargas, Efrain [facility] [place] [address] documented as of this encounter Goals Goal [...] documented as of this encounter Care Teams Mat Machine Tender Relationship Specialty Start Date End Date Veronica Gallardo MD [facility] [place] [address] PCP - General Family Medicine 08/09/12 Brien Vargas, PharmD [address] [place], [place] [address]sandee [facility] [place] [address] Pharmacist Internal Medicine 11/30/22 documented as of this encounter
--- OUTSIDE RECORDS SUMMARY | 2025-09-23 20:00 | XMS_ITS | Clinical Summary ---
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000 97.5 [degF] BMI (%) 2025-07-27 20:03:10.000 23 kg/m2 Height 2025-07-27 20:03:00.000 70 [in_us] Pulse 2025-07-28 22:15:00.000 88 /min Respirations 2025-07-28 22:15:00.000 20 /min Weight (lbs) 2025-07-27 20:03:10.000 164 [lb_av] Systolic Blood Pressure 2025-07-28 22:15:00.000 134 mm [Hg] Diastolic Blood Pressure 2025-07-28 22:15:00.000 72 mm [Hg] Plan of Treatment Planned Activity Planned Date Details Comments Future Scheduled Test SKILLED NU RSE TO EVALUATE PATIENT, IDENTIFY PRIMARY AND CO-MORBID CONDITIONS CODED PER CODING GUIDELINES, AND DEVELOP PATIENT SPECIFIC PLAN OF CARE THAT INCLUDES PATIENT GOAL FOR HOME HEALTH. [code = SKILLED NURSE TO EVALUATE PATIENT, IDENTIFY PRIMARY AND CO-MORBID CONDITIONS CODED PER CODING GUIDELINES, AND DEVELOP PATIENT SPECIFIC PLAN OF CARE THAT INCLUDES PATIENT GOAL FOR HOME HEALTH.] Future Scheduled Test SKILLED NU RSE TO PERFORM HOME SAFETY AND FALL ASSESSMENT AND PROVIDE INSTRUCTION TO IMPLEMENT HOME SAFETY AND FALL PREVENTION STRATEGIES. [code = SKILLED NURSE TO PERFORM HOME SAFETY AND FALL ASSESSMENT AND PROVIDE INSTRUCTION TO IMPLEMENT HOME SAFETY AND FALL PREVENTION STRATEGIES.] Future Scheduled Test PATIENT VALENCIA S A RISK OF HOSPITALIZATION AND ED USE. SKILLED NURSE TO ESTABLISH SUPPORT MEASURES TO MINIMIZE RISK OF HOSPITALIZATION AND ED USE, AND INSTRUCT PATIENT/CAREGIVER ON METHODS TO REDUCE AVOIDABLE HOSPITALIZATION AND ED USE. [code = PATIENT HAS A RISK OF HOSPITALIZATION AND ED USE. SKILLED NURSE TO ESTABLISH SUPPORT MEASURES TO MINIMIZE RISK OF HOSPITALIZATION AND ED USE, AND INSTRUCT PATIENT/CAREGIVER ON METHODS TO REDUCE AVOIDABLE HOSPITALIZATION AND ED USE.] Future Scheduled Test SKILLED NU RSE TO PROVIDE INSTRUCTION TO PATIENT/CAREGIVER RELATED TO DISCHARGE PLANNING. [code = SKILLED NURSE TO PROVIDE INSTRUCTION TO PATIENT/CAREGIVER RELATED TO DISCHARGE PLANNING.] Future Scheduled Test SKILLED NU RSE TO O/A OF PATIENTS MENTAL/BEHAVIORAL STATUS, ASSESS VITAL SIGNS THREE TIMES A WEEK [code = SKILLED NURSE TO O/A OF PATIENTS MENTAL/BEHAVIORAL STATUS, ASSESS VITAL SIGNS THREE TIMES A WEEK] Future Scheduled Test CLINICAL S UMMARY (SOC/RECERT, 10 DAY, 60 DAY): THE PATIENT IS RECEIVING HOMECARE DUE TO NEW ONSET/EXACERBATION OF: YES RECENT HOSPITALIZATION/INPATIENT ADMISSION RELATED TO: YES NEW OR CHANGED MEDICATIONS PERTINENT TO THE PLAN OF CARE: YES PATIENT LIVING SITUATION/CAREGIVER STATUS: ALONE SUMMARIZE SKILLED NEED: MEDICATION MANAGEMENT, VITAL SIGN ASSESSMENT, MENTAL STATUS ASSESSMENT AND DIAGNOSIS MANAGEMENT AND MEDICAL CARE (REMOVE THE FOLLOWING STATEMENT IF NOT APPLICABLE) MEDICATIONS ADMINISTERED AND/OR PREPOURED PER MEDICATION PROFILE [code = CLINICAL SUMMARY (SOC/RECERT, 10 DAY, 60 DAY): THE PATIENT IS RECEIVING HOMECARE DUE TO NEW ONSET/EXACERBATION OF: YES RECENT HOSPITALIZATION/INPATIENT ADMISSION RELATED TO: YES NEW OR CHANGED MEDICATIONS PERTINENT TO THE PLAN OF CARE: YES PATIENT LIVING SITUATION/CAREGIVER STATUS: ALONE SUMMARIZE SKILLED NEED: MEDICATION MANAGEMENT, VITAL SIGN ASSESSMENT, MENTAL STATUS ASSESSMENT AND DIAGNOSIS MANAGEMENT AND MEDICAL CARE (REMOVE THE FOLLOWING STATEMENT IF NOT APPLICABLE) MEDICATIONS ADMINISTERED AND/OR PREPOURED PER MEDICATION PROFILE] Future Scheduled Test SKILLED NU RSE WILL MAINTAIN SITUATIONAL AWARENESS FOR SAFETY AND WILL NOTIFY CLINICAL CLINICAL STATISTICS MANAGER AND PHYSICIAN/PROVIDER WITH ANY CHANGE IN CONDITION. [code = SKILLED NURSE WILL MAINTAIN SITUATIONAL AWARENESS FOR SAFETY AND WILL NOTIFY CLINICAL CLINICAL STATISTICS MANAGER AND PHYSICIAN/PROVIDER WITH ANY CHANGE IN CONDITION.] Future Scheduled Test SKILLED NU RSE TO REVIEW PATIENT MEDICATIONS. INSTRUCT PATIENT/CAREGIVER ON MONITORING OF EFFECTIVENESS, ADVERSE DRUG REACTIONS, SIDE EFFECTS OF ALL MEDICATIONS (PRESCRIPTION/-OTC), AND HOW AND WHEN TO REPORT PROBLEMS. [code = SKILLED NURSE TO REVIEW PATIENT MEDICATIONS. INSTRUCT PATIENT/CAREGIVER ON MONITORING OF EFFECTIVENESS, ADVERSE DRUG REACTIONS, SIDE EFFECTS OF ALL MEDICATIONS (PRESCRIPTION/-OTC), AND HOW AND WHEN TO REPORT PROBLEMS.] Future Scheduled Test SKILLED NU RSE TO ADMINISTER MEDICATIONS THREE TIMES A WEEK AND PRE-POUR MEDICATIONS TILL NEXT [facility] VISIT PER MEDICATION LIST. [code = SKILLED NURSE TO ADMINISTER MEDICATIONS THREE TIMES A WEEK AND PRE-POUR MEDICATIONS TILL NEXT [facility] VISIT PER MEDICATION LIST.] Future Scheduled Test SKILLED NU RSE FOR O/A AND SKILLED TEACHING RELATED TO MANAGEMENT OF DEPRESSIVE SYMPTOMS AND/OR DEPRESSION. SN TO REPORT SIGNIFICANT CHANGE IN DEPRESSIVE SYMPTOMS TO CLINICAL PROVIDER FOR EARLY INTERVENTION. [code = SKILLED NURSE FOR O/A AND SKILLED TEACHING RELATED TO MANAGEMENT OF DEPRESSIVE SYMPTOMS AND/OR DEPRESSION. SN TO REPORT SIGNIFICANT CHANGE IN DEPRESSIVE SYMPTOMS TO CLINICAL PROVIDER FOR EARLY INTERVENTION.] Future Scheduled Test SKILLED NU RSE FOR O/A OF PATIENT'S RISK FOR VIOLENCE (TOWARD SELF OR OTHERS) AND TO PROVIDE INTERVENTION TECHNIQUES TO PROMOTE SAFETY TO PATIENT AND OTHERS [code = SKILLED NURSE FOR O/A OF PATIENT'S RISK FOR VIOLENCE (TOWARD SELF OR OTHERS) AND TO PROVIDE INTERVENTION TECHNIQUES TO PROMOTE SAFETY TO PATIENT AND OTHERS] Future Scheduled Test SKILLED NU RSE FOR O/A OF NEUROCOGNITIVE AND BEHAVIORAL STATUS [code = SKILLED NURSE FOR O/A OF NEUROCOGNITIVE AND BEHAVIORAL STATUS] Future Scheduled Test SKILLED NU RSE TO ASSESS PATIENT S PSYCHOSOCIAL STATUS TO IDENTIFY POTENTIAL ISSUES THAT MAY COMPLICATE THE PROVISION OF THE PLAN OF CARE INCLUDING THE PATIENT S ABILITY TO ACCESS COMMUNITY RESOURCES AND PSYCHOSOCIAL SUPPORT SERVICES. [code = SKILLED NURSE TO ASSESS PATIENT S PSYCHOSOCIAL STATUS TO IDENTIFY POTENTIAL ISSUES THAT MAY COMPLICATE THE PROVISION OF THE PLAN OF CARE INCLUDING THE PATIENT S ABILITY TO ACCESS COMMUNITY RESOURCES AND PSYCHOSOCIAL SUPPORT SERVICES.] Future Scheduled Test SKILLED NU RSE FOR O/A OF CLIENT'S SOCIAL ISOLATION AND PROVIDE ASSISTANCE TO CLIENT IN DEVELOPMENT OF PLANNED ACTIVITIES [code = SKILLED NURSE FOR O/A OF CLIENT'S SOCIAL ISOLATION AND PROVIDE ASSISTANCE TO CLIENT IN DEVELOPMENT OF PLANNED ACTIVITIES] Goal Patient Goal - TAKING MEDS C ORRECTLY Goal Provider Goal - A PLAN OF CARE WILL BE ESTABLISHED THAT MEETS PATIENT'S [facility] NEEDS AND INCLUDES PATIENT GOAL FOR HOME HEALTH. Goal Provider Goal - PATIENT/CAREGIVER WILL VERBALIZE/DEMONSTRATE EFFECTIVE HOME SAFETY AND FALL PREVENTION STRATEGIES THROUGHOUT CERTIFICATION PERIOD. Goal Provider Goal - PATIENT WILL HAVE SUPPORT MEASURES ESTABLISHED TO PREVENT HOSPITALIZATION AND ED USE AND PATIENT/CAREGIVER WILL VERBALIZE/DEMONSTRATE METHODS TO REDUCE AVOIDABLE HOSPITALIZATION AND ED USE BY END OF EPISODE. Goal Provider Goal - PATIENT/CAREGIVER WILL VERBALIZE UNDERSTANDING OF DISCHARGE PLANNING INSTRUCTIONS BY DATE OF DISCHARGE. Goal Provider Goal - ALTERED MENTAL/BEHAVIORAL STATUS WILL BE IDENTIFIED PROMPTLY AND INTERVENTION INITIATED QUICKLY TO MINIMIZE ASSOCIATED RISKS THROUGHOUT CERTIFICATION PERIOD. Goal Provider Goal - PATIENT WILL REMAIN SAFE, FREE FROM HOSPITALIZATION, AND ADHERE TO THE SKILLED NURSE S PLAN OF CARE THROUGHOUT THE CERTIFICATION PERIOD. Goal Provider Goal - PATIENT WILL REMAIN SAFE IN THE COMMUNITY AND WILL BE FREE OF DANGER TO SELF AND OTHERS THROUGHOUT THE CERTIFICATION PERIOD. Goal Provider Goal - PATIENT/CAREGIVER WILL VERBALIZE UNDERSTANDING OF EDUCATION PROVIDED ON MEDICATIONS BY THE END OF THE CERTIFICATION PERIOD. Goal Provider Goal - PATIENT WILL COMPLY WITH MEDICATION WHEN SKILLED NURSE ADMINISTERS AND PRE-POURS MEDICATION THROUGHOUT CERTIFICATION PERIOD. Goal Provider Goal - PATIENT WILL REMAIN SAFE WITHOUT DECOMPENSATION IN DEPRESSIVE CONDITION, WHILE MAINTAINING OPTIMAL LEVEL OF MENTAL HEALTH AND WELL BEING THROUGHOUT CERTIFICATION PERIOD. Goal Provider Goal - PATIENT WILL REMAIN SAFE IN COMMUNITY WITHOUT EVIDENCE OF INJURY/HARM TO SELF OR OTHERS THROUGHOUT CERTIFICATION PERIOD. Goal Provider Goal - PATIENT WILL BE ABLE TO PERFORM DAILY FUNCTIONS AND MAINTAIN OPTIMAL BEHAVIORAL/NEUROCOGNITIVE STATUS THROUGHOUT CERTIFICATION PERIOD. Goal Provider Goal - PSYCHOSOCIAL NEEDS WILL BE IDENTIFIED AND PLAN IMPLEMENTED TO MINIMIZE RISK THROUGHOUT CERTIFICATION PERIOD. Goal Provider Goal - PATIENT WILL DEMONSTRATE AN INCREASED INTEREST IN SOCIALIZATION AND ACTIVITIES BY THE END OF THE CERTIFICATION PERIOD. Progress Notes Progress Notes <paragraph>[Visit Date: 2024 by PAM KAUR RN]:</paragraph><paragraph>PATIENT EDUCATED ABOUT GETTING FLU SHOT FOR UPCOMING SEASON TO HELP REDUCE THE RISK OF CHERYL FLU VIRUS, PATIENT VERBALIZED UNDERSTANDING.</paragraph> Encounters Start Date/Time End Date/Time Encounter Type Admission Type Attending [facility] Facility Care Department Encounter ID Discharge Date Discharge Status Discharge Condition Discharge Reason Percent Goals Met 2025-07-27 00:00:00 2025-09-24 00:00:00 Outpatient NEW ADMISSION ESSIE HERMAN [facility] [id number] 20. 67
== END 2025-07-30 10:35 | disposition home or self-care (01) ==
LOC: HO.HVS 10:09
PROVIDERS: PCP Family Medicine; Visit Provider Surgery Vascular Surgery
DX: I83.12 Varicose veins of left lower extremity with inflammation (principal)
CPT/HCPCS: 99204

== ENCOUNTER → 2025-07-30 10:09 | Outpatient (BNVA) | payer OTHER, SELFPAY | PROVIDERS: PCP Family Medicine; Visit Provider Surgery Vascular Surgery | DX: I83.12 Varicose veins of left lower extremity with inflammation (principal) | CPT/HCPCS: 99202 ==

== ENCOUNTER 2025-08-07 10:32 | Observation (INO) | payer OTHER, SELFPAY ==
[2025-08-07] VITALS (7 sets, daily range): BP systolic 146–179; BP diastolic 83–94; PULSE 53–72; RESP 11–18; TEMP 36.3–36.8; O2SAT 96–98; BMI 24.2
--- NOTE | ~2025-08-07 | NM_ITS ---
EXERCISE MYOCARDIAL PERFUSION STUDY INDICATION: Chest pain TECHNIQUE: The patient was brought in for an exercise perfusion study on 08/09/2025. Patient performed exercise as per modified Srinivas protocol and was injected 30 mCi of sestamibi once target heart rate was achieved. Images were obtained using the SPECT gamma camera interlaced with the gating device. Images were obtained in supine position. Resting perfusion study was performed on 08/09/2025. Patient was administered 10 mCi of sestamibi intravenously at rest. Images were then obtained in supine position. Total DLP 70 mGy-cm. Images were processed with the software and compared side to side in short axis, horizontal long axis and vertical long axis views. FINDINGS: Raw aquisition reviewed. The stress perfusion study showed no significant perfusion abnormality. Both uncorrected as well as CT attenuation corrected images were reviewed. The gated study shows normal LV systolic function with calculated LVEF of > 70%. LV cavity is normal in size. The gated study shows normal wall thickening and contraction of segments. Resting study shows no significant perfusion abnormality. Gating at rest reveals normal wall motion with ejection fraction at 69%. The findings are consistent with no clear reversible or fixed perfusion abnormality. NM/NM makenzie perf SPECT rest & str IMPRESSION: 1. Myocardial perfusion imaging study shows normal myocardial perfusion. 2. Gated LVEF is > 70% during stress and 69% during rest. 3. Transient ischemic dilatation not present. EKG component of the test reported separately. Electronically signed by: Karri Trinidad MD 08/11/2025 12:57 PM [facility]
--- NOTE | ~2025-08-07 | XR_ITS ---
EXAMINATION: XR CHEST 2 VIEWS HISTORY: chest pain COMPARISON: Comparison is made with the prior examination dated 07/18/2025. FINDINGS: AP and lateral views of the chest are submitted. There is subsegmental atelectasis at the lung bases. The lungs are otherwise clear. There is no pleural effusion, pneumothorax, or pulmonary vascular congestion. The heart is normal in size. The bones are intact. XR/XR chest 2V IMPRESSION: Bibasilar subsegmental atelectasis. Electronically signed by: Edwin Ventura MD 08/07/2025 11:36 AM EDT
--- OUTSIDE RECORDS SUMMARY | 2025-08-07 09:40 | XMS_ITS | Encounter Summary ---
Author Organization [employer] Address [address] [place] [address] Care Team Providers Care Auto Phone Installer Name Role Phone Veronica Gallardo MD Primary Care Provider [phone] Brien Vargas PharmD Unavailable [phone] Earline Quinn RN Unavailable [phone] Encounter Details Date Type Department Care Team (Late st Contact Info) Description 08/07/2025 9:40 AM EDT Office Visit [facility] [address] [place], [place] [phone] eDya Khan DO [address] [place], [place] [phone] Chest pain, unspecified type (Primary Dx) Social History Tobacco Use Types Packs/Day Years Used Date Smoking Tobacco: Never Passive Smoke Exposure: Never Smokeless Tobacco: Never Alcohol Use Standard Drinks/Week Comments Never 0 (1 standard drink = 0.6 oz pur e alcohol) Alcohol Answer Date Recorded How often do [...] Sign Reading Time Taken Comments Blood Pressure 144/84 08/07/2025 10:00 AM EDT Pulse 82 08/07/2025 9:06 AM EDT Temperature 36.6 C (97.9 F) 08/07/2025 9:06 AM EDT Respiratory Rate 21 08/07/2025 9:06 AM EDT Oxygen Saturation 96% 08/07/2025 9:06 AM EDT Inhaled Oxygen Concentration - - Weight 72.3 kg (159 lb 8 oz) 08/07/2025 9:06 AM EDT Height 175.3 cm (5' 9 ) 08/07/2025 9:06 AM EDT Body Mass Index 23.55 08/07/2025 9:06 AM EDT documented in this encounter Progress Notes * Siomara Arnold RN - 08/07/2025 9:40 AM EDT EMS called at 1006, EMS arrived at 1013 to transport the patient to [facility] ED. * Deya Erin, - 08/07/2025 9:20 AM EDT SUBJECTIVE Chriss Henriquez is a 70 y.o. male who presents for Sick Visit. He presents to [place] today c/o elevated BP and VALENCIA. He was seen in ED for elevated BP a couple of weeks ago. He had f/u with PCP a few days later. He had no changes in his meds and was advised to f/u with cards, renal, and CDTM pharmacist. He comes in today c/o elevated BP. He doesn't check his BP at home. He says he knows that his BP ishigh because he is having chest pain. He took his BP meds this morning when he arrived to the health center. He says that yesterday he had a poking pain on the R side of his chest. He started having pain on the L side of his chest this morning but he is unable to describe the pain. He says that the pain hasbeen constant since 5 am. He denies any radiation of pain. He reports a little dizziness. He deniesany SOB, palpitations, sweating or N/V. He denies any VALENCIA or vision changes. He feels like he had a heart attack. He feels that his heart left his body and returned to his chest but doesn't feel like it's his. He says that his hands also feel weird with a numbness sensation that don't feel like his hands. History provided by: Patient anger control counselor used: Yes Chest Pain Pain location: L chest Pain radiates to: Does not radiate Onset quality: Sudden Duration: 5 hours Timing: Constant Progression: Unchanged Chronicity: Recurrent Relieved by: None tried Associated symptoms: numbness (+tingling) Associated symptoms: no abdominal pain, no cough, no diaphoresis, no dizziness, no fever, no headache (in setting of elevated BP), no heartburn, no lower extremity edema, no nausea, no palpitations, no shortness of breath, no syncope, no vomiting and no weakness Risk factors: hypertension and prior DVT/PE Review of Systems Constitutional: Negative for activity change, appetite change, diaphoresis, fever and unexpected weight change. Respiratory: Negative for cough, chest tightness and shortness of breath. Cardiovascular: Positive for chest pain. Negative for palpitations and syncope. Gastrointestinal: Negative for abdominal pain, diarrhea, heartburn, nausea and vomiting. Neurological: Positive for numbness (+tingling). Negative for dizziness, weakness and headaches (insetting of elevated BP). 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 Ascending aortic aneurysm (CMS/HCC) Alcohol use Deep venous thrombosis of lower extremity (HCC) Dyslipidemia Hypertension Gastroesophageal reflux disease Hemorrhoids Hyperhomocysteinemia (CMS/HCC) Mitral and aortic valve disease Peripheral vascular disease (CMS/HCC) Seizure disorder (CMS/HCC) (HCC) Stage 3 chronic kidney disease (CMS/HCC) (HCC) Vitamin D deficiency Major depression History of alcohol use disorder Alcohol use disorder, moderate, in early remission (CMS/HCC) (HCC) Erythrocytosis History of latent tuberculosis History of syphilis History of shingles Benign prostatic hyperplasia Non-rheumatic aortic stenosis Renal cyst Chronic back pain Chronic pain of left knee Allergies Allergen Reactions Ibuprofen Unknown Acetaminophen Unknown Oxycodone Unknown Percocet [Oxycodone-Acetaminophen] OBJECTIVE Vitals: 08/07/25 0906 08/07/25 1000 BP: (!) 160/90 (!) 144/84 BP Location: Left arm Left arm Patient Position: Sitting Sitting BP Cuff Size: Adult Adult Pulse: 82 Resp: 21 Temp: 97.9 ??F (36.6 ??C) TempSrc: Oral SpO2: 96% Weight: 159 lb 8 oz (72.3 kg) Height: 5' 9 (1.753 m) Physical Exam Constitutional: General: He is not in acute distress. Appearance: Normal appearance. Comments: Appears older than stated age Cardiovascular: Rate and Rhythm: Normal rate and regular rhythm. Heart sounds: Normal heart sounds. No murmur heard. Pulmonary: Effort: Pulmonary effort is normal. Breath sounds: Normal breath sounds. No wheezing or rhonchi. Chest: Chest wall: No tenderness. Neurological: General: No focal deficit present. Mental Status: He is alert. Cranial Nerves: No cranial nerve deficit. Motor: No weakness. Gait: Gait normal. Psychiatric: Mood and Affect: Mood normal. Encounter Date: 08/07/25 ECG 12 lead Narrative NSR @ 62 bmp, nml axis/intervals, no Q waves, no ST depression/elevation, TWF aVL Assessment/Plan Diagnoses and all orders for this visit: Chest pain, unspecified type With persistent L-sided CP since 5am, no signs of ischemia on EKG, likely atypical CP -advised pt he needs further eval and mgmt in ED, he agrees with recommendation -treat with aspirin, SL NTG, and O2 -[place] RN contacted EMS for transport -notified [facility] triage of pt's arrival --Follow-up with PCP after ED eval-- Current Outpatient Medications: acetaminophen (Tylenol 8 Hour) 650 MG ER tablet, TAKE 1 TABLET BY MOUTH EVERY 8 HOURS NEEDED FORMILD PAIN FOR UP TO 10 DAYS, DO NOT BREAK, CRUSH, DISSOLVE OR CHEW, Disp: 30 tablet, Rfl: 0 amLODIPine (Norvasc) 10 MG tablet, TAKE 1 TABLET BY MOUTH AT BEDTIME, Disp: 90 tablet, Rfl: 3 atorvastatin (Lipitor) 20 MG tablet, Take 1 tablet (20 mg) by mouth at bedtime., Disp: 90 tablet, Rfl: 3 busPIRone (Buspar) 30 MG tablet, TAKE 1 TABLET BY MOUTH TWICE DAILY IN THE MORNING AND IN THE EVENING, Disp: , Rfl: clobetasol (Temovate) 0.05 % ointment, Apply topically 2 times daily., Disp: 60 g, Rfl: 0 D3 Super Strength 50 MCG (1999 UT) capsule, TAKE 1 CAPSULE BY MOUTH EVERY MORNING, Disp: 90 capsule, Rfl: 3 docusate sodium (Colace) 100 MG capsule, TAKE 1 CAPSULE BY MOUTH TWICE DAILY, Disp: 180 capsule, Rfl: 1 finasteride (Proscar) 5 MG tablet, Take 5 mg by mouth in the morning., Disp: , Rfl: folic acid (Folvite) 1 MG tablet, TAKE 1 TABLET BY MOUTH EVERY MORNING, Disp: 90 tablet, Rfl: 1 gabapentin (Neurontin) 300 MG capsule, TAKE 1 CAPSULE BY MOUTH AT BEDTIME NEEDED FOR PAIN, Disp:30 capsule, Rfl: 1 hydrALAZINE (Apresoline) 50 MG tablet, TAKE 1 TABLET BY MOUTH THREE TIMES DAILY IN THE MORNING, EVENING, AND BEDTIME, Disp: 270 tablet, Rfl: 1 hydrocortisone 2.5 % cream, APPLY TOPICALLY TWICE DAILY, Disp: 20 g, Rfl: 1 hydrOXYzine pamoate (Vistaril) 25 MG capsule, Take 1 capsule (25 mg) by mouth every 6 (six) hours if needed for itching., Disp: 60 capsule, Rfl: 1 loratadine (Claritin) 10 MG tablet, TAKE 1 TABLET BY MOUTH EVERY MORNING FOR ALLERGIES, Disp: 90 tablet, Rfl: 1 mirtazapine (Remeron) 45 MG tablet, Take 45 mg by mouth at bedtime., Disp: , Rfl: naltrexone (Depade) 50 MG tablet, TAKE 1 TABLET BY MOUTH ONCE DAILY. WITH BREAD., Disp: 30 tablet, Rfl: 11 omeprazole (PriLOSEC) [address] capsule, TAKE 1 CAPSULE BY MOUTH TWICE DAILY IN THE MORNING AND AT BEDTIME, Disp: 180 capsule, Rfl: 1 phenytoin ER (Dilantin) 100 MG capsule, TAKE 3 CAPSULES BY MOUTH EVERY DAY IN THE MORNING, Disp: 270 capsule, Rfl: 1 terazosin (Hytrin) 5 MG capsule, Take 5 mg by mouth at bedtime., Disp: , Rfl: thiamine (Vitamin B-1) 100 MG tablet, TAKE 1 TABLET BY MOUTH EVERY MORNING, Disp: 90 tablet, Rfl: 1 warfarin (Coumadin) 1 MG tablet, TAKE DIRECTED BY COUMADIN CLINIC, Disp: 60 tablet, Rfl: 3 warfarin (Coumadin) 4 MG tablet, TAKE 1 TABLET BY MOUTH EVERY DAY DIRECTED, Disp: 30 tablet, Rfl: 3 Current Facility-Administered Medications: nitroglycerin (Nitrostat) SL tablet 0.4 mg, 0.4 mg, Sublingual, q5 min PRN, Deya Khan DO, 0.4 mg at 08/07/25 1032 Scribe Attestation: Steve Jimenez, am serving as a scribe to document services personally performed by Deya Urena, based on the patient's response to questions by provider and provider's statements to me. 08/07/25 11:20 AM Physicians Attestation: Deya Jimenez DO, have reviewed the information by the scribe, Steve Mccarthy, for accuracy and agree with its content. documented in this encounter Plan of Treatment Upcoming Encounters Date Type Department Care Team (Latest Contact Info) Description 08/14/2025 10:00 AM EST Medication Management [facility] [place] [address] Brien Vargas, [place] [address] 08/22/2025 1:00 PM EST Anticoagulation - Warfarin Visit [facility] Brisa [place] [phone] 09/02/2025 11:00 AM EST Office Visit [facility] Brisa [place] [phone] [place] [address] 10/14/2025 10:00 AM EST Medication Management [facility] Brisa [place] [phone] Brien Vargas, [place] [address] documented as of this encounter Goals Goal Patient Goal Type Associated Problems Recent Progress Patient-Stated? Author Blood Pressure < 140/90 Blood Pressure 144/84( 025 10:00 AM EDT) No Brien Vargas, PharmDonte documented as of this encounter Procedures Procedure Name Priority Date/Time Associated Diagnosis Comments ECG 12-LEAD Routine 08/07/2025 1:19 PM EDT Chest pain, unspecified type documented in this encounter Results * ECG 12 lead (08/07/2025 1:19 PM EDT) Narrative Deya Khan DO - 08/07/2025 1:19 PM EDT NSR @ 62 bmp, nml axis/intervals, no Q waves, no ST depression/elevation, TWF aVL Deya Khan DO ECG ORDERABLES Final Result documented in this encounter Visit Diagnoses Diagnosis Chest pain, unspecified type- Primary documented in this encounter Administered Medications Active Administered Medications - up to 3 most recent administrations Medication Order MAR Action Action Date Dose Rate Site nitroglycerin (Nitrostat) SL tablet 0.4 mg 0.4 mg, Sublingual, Every 5 min PRN, chest pain, Starting on Tue08/07/25 at 1027, May administer up to 3 doses per episode.Indications:Chest pain, unspecified type Given 08/07/2025 10:32 AM EDT 0.4 mg Inactive Administered Medications - up to 3 most recent administrations Medication Order MAR Action Action Date Dose Rate Site aspirin chewable tablet 324 mg 324 mg, Oral, Once, On Tue08/07/25 at 1030, For 1 doseIndications:Chest pain, unspecified type Given 08/07/2025 10:30 AM EDT 324 mg documented in this encounter Additional Health Concerns Assessment Noted Time PHQ-9 Depression Total Score: 0 05/30/20 9:11 AM EDT documented as of this encounter Care Teams Auto Phone Installer Relationship Specialty Start Date End Date Veronica Gallardo MD [address] [place] [address] PCP - General Family Medicine 08/09/12 Brien Vargas, PallaviD [address] [place], [place] [phone] Pharmacist Internal Medicine 11/30/22 Earline Quinn, RN [address] [place] [address] Registered Nurse Family Medicine 07/29/25 documented as of this encounter
--- NOTE | 2025-08-07 10:34 | ECG_ITS ---
Test Reason : CP Blood Pressure : */* mmHG Vent. Rate : 59 BPM Atrial Rate : 59 BPM P-R Int : 146 ms QRS Dur : 74 ms QT Int : 420 ms P-R-T Axes : 68 16 36 degrees QTcB Int : 415 ms Sinus bradycardia with Premature supraventricular complexes Otherwise normal ECG When compared with ECG of 28-Jul-2025 13:08, Premature supraventricular complexes are now Present Referred By: Generic ED Physician Electronically Signed By: LESA BURGER
[2025-08-07 11:13] LABS: MANUAL DIFF FLAG NO
[2025-08-07 11:19] LABS: Hematocrit 44.9 % (42.0-52.0); Hemoglobin 15.2 g/dl (14.0-18.0); Imm Gran Abs Auto 0.01 X10*3/uL (0.00-0.03); Imm Gran Pct Auto 0.2 % (0.0-0.4); Lymphocytes Absolute Auto 0.5 X10*3/uL (1.2-4.9); Mean Corpuscular HGB Conc 33.9 g/dl (31.0-36.0); Mean Corpuscular Hemoglobin 33.4 pg (27.0-33.0); Mean Corpuscular Volume 98.7 fL (80.0-98.0); NRBC Abs Auto 0.000 X10*3/uL (0.0-0.012); NRBC Pct Auto 0.0 /100WBC (0.0-0.2); Platelet Count 100 X10*3/uL (160-400); Red Blood Count 4.55 X10*6/uL (4.60-5.80); White Blood Count 4.0 X10*3/uL (4.8-10.8)
[2025-08-07 11:30] LABS: Anion Gap 10 (12-20); Blood Urea Nitrogen 23 mg/dL (9-16); Calcium 9.7 mg/dL (8.4-10.2); Carbon Dioxide 28 mmol/L (22-29); Chloride 111 mmol/L (96-108); Creatinine Clr Calc Pharmacy 39.5; Estimated Glomerular Filt Rate 40; Potassium 4.7 mmol/L (3.3-5.1); Sodium 144 mmol/L (135-145)
[2025-08-07 11:39] LABS: Troponin-I High Sensitivity 13.5 ng/L (<3.5-35.0)
--- NOTE | 2025-08-07 11:56 | ED.CHESTPAIN ---
HPI - Chest Pain General Chief Complaint: Chest Pain Stated Complaint: Chest pain, dizziness Time Seen by Provider: 08/07/25 11:04 Source: patient Mode of arrival: ambulatory Limitations: no limitations History of Present Illness HPI narrative: This is 70 years old male referred to us by [facility] because chest pain. Patient denies any chest pain at this time, he stated that he had an episode of chest pain lasting few minutes this morning around 07:00 his blood pressure was elevated off of the clinic therefore he was referred to us. Patient denies any prior cardiac history has a history of hypertension history of hyper lipidemia. He has a history of mild to moderate , he has a history of a mild dilated aneurysmally 4.2 cm by the last echo. He has a normal EF. MD complaint: chest pain Onset (ago): hour(s) (4) Timing of current episode: now resolved Onset: during rest Pain location: substernal Pain radiation: none Severity: mild Quality: aching Relieving factors: nothing Exacerbating factors: nothing Risk Factors Coronary artery disease risk factors: hypertension Related Data Home Medications ?Medication ?Instructions ?Recorded ?Confirmed fluticasone propionate 50 1 spray intranasal DAILY 08/06/20 02/11/25 mcg/actuation nasal spray,suspension acetaminophen 325 mg capsule 650 mg PO Q8H PRN fever or pain 10/19/23 02/11/25 (Tylenol) amlodipine 10 mg tablet 10 mg PO DAILY 05/03/24 02/11/25 atorvastatin 10 mg tablet 10 mg PO BEDTIME 05/03/24 02/11/25 buspirone 30 mg tablet 30 mg PO BID 05/03/24 02/11/25 cholecalciferol (vitamin D3) 50 50 mcg PO DAILY 05/03/24 02/11/25 mcg (2,000 unit) capsule (Vitamin D3) docusate sodium 100 mg capsule 100 mg PO BID 05/03/24 02/11/25 folic acid 1 mg tablet 1 mg PO DAILY 05/03/24 02/11/25 gabapentin 300 mg capsule 300 mg PO DAILY 05/03/24 02/11/25 hydralazine 50 mg tablet 50 mg PO TID 05/03/24 02/11/25 loratadine 10 mg tablet 10 mg PO DAILY 05/03/24 02/11/25 mirtazapine 45 mg tablet 45 mg PO BEDTIME 05/03/24 02/11/25 omeprazole 20 mg capsule,delayed 20 mg PO DAILY 05/03/24 02/11/25 release phenytoin sodium extended 100 mg 100 mg PO TID 05/03/24 02/11/25 capsule thiamine HCl (vitamin B1) 100 mg 100 mg PO QAM 05/03/24 02/11/25 tablet warfarin 1 mg tablet 5 mg PO QWEEK 05/03/24 02/11/25 warfarin 4 mg tablet 4 mg PO DAILY 05/03/24 07/16/24 Previous Rx's ?Medication ?Instructions ?Recorded finasteride 5 mg tablet 5 mg PO DAILY 90 days #90 tabs 01/14/25 terazosin 5 mg capsule 5 mg PO BEDTIME 90 days #90 caps 01/14/25 magnesium citrate 148 ml PO BID PRN constipation 07/24/25 #296 mL polyethylene glycol 3350 17 17 g PO DAILY PRN constipation 2 07/24/25 gram/dose oral powder (Miralax) weeks #238 grams sodium phosphates 19 gram-7 118 ml TX DAILY PRN constipation 07/24/25 gram/197 mL enema (Fleet Enema #230 mL Extra) Allergies Allergy/AdvReac Type Severity Reaction Status Date / Time ibuprofen (From Motrin) Allergy Intermediate Unknown Verified 08/07/25 10:49 acetaminophen (From Percocet) Allergy Unknown Verified 08/07/25 10:49 oxycodone Allergy Unknown Verified 08/07/25 10:49 Review of Systems Review of Systems: Yes all other systems are reviewed and are negative PMFSH Past Medical History Medical History Ascending aortic aneurysm Colon cancer screening Hemorrhoid Aortic aneurysm GERD (gastroesophageal reflux disease) Chronic anticoagulation Alcohol abuse Mood disorder Mood disorder due to a general medical condition Peripheral vascular disease DVT (deep venous thrombosis) Hyperhomocysteinemia CKD (chronic kidney disease) Depression Seizure Surgical History Hx of colonoscopy Hx of hernia repair Family History Family History Paternal Grandmother Cancer Maternal Grandfather Cancer Paternal Aunt Cancer Social History Social History Household Members: None Housing: Apartment Are you a primary personal care assistant to a significant other at home: No Do you presently have visiting nurse or other home services: No Unable to assess alcohol history related to: Unknown Alcohol intake: current Alcohol intake frequency: does not drink Alcohol type: beer Patient Tobacco Use Status: Never used Tobacco Smoked in Last 30 Days: No Use of substances other than those prescribed or required for medical reasons: Unknown Advance Directives: No Advance Directives Information Provided: Yes Advance Directives Date on File: 10/01/20 service: No Current occupational status: disabled Physical Exam Exam: Exam: He looks well is comfortable in the stretcher Vital Signs: Vital Signs: Last Vital Signs Temp 98 F 08/07/25 14:00 Pulse 56 08/07/25 14:00 Resp 16 08/07/25 14:00 BP 155/88 H 08/07/25 14:00 Pulse Ox 97 08/07/25 14:00 O2 Del Method Room Air 08/07/25 14:00 BMI result Body Mass Index 24.2 Const: General: cooperative Nutritional Appearance: well nourished Orientation/consciousness: patient oriented x3 Limitations: no limitations HEENT: Head: Yes normal to inspection Ears: hearing grossly normal bilaterally General nose exam: Normal external nose present Face and sinus: Yes normal facial exam Mouth: Normal oral and palatal mucosa present Neck: Neck: Yes normal visual inspection Chest: Chest palpation & inspection: normal inspection of the chest Resp: Effort & Inspection: normal respiratory effort Cardio: Jugular venous distension: no JVD Rate: regular rate Rhythm: regular rhythm GI: Inspection: Yes normal to inspection Palpation (GI): Soft to palpation Skin: General skin exam: no rashes or lesions noted Neuro: General: patient oriented x3 Cranial nerves: Yes CN's II-XII intact bilaterally Course Reevaluation(s) Reevaluation #1: I have discussed the case with the Cardiology Dr. Trinidad patient does have history of aortic stenosis and he has a an ascending aneurysm it is reasonable to admit him we will schedule an echo, unfortunately we can not do a CTA because he as CKD Time: 16:30 Medical Decision Making Medical Decision Making MDM Narrative: Patient referred to us with chest pain we will go ahead and check the high sensitive troponin EKG chest x-ray Differential Diagnosis Differential Diagnoses: The differential diagnosis associated with the presentation includes Acute coronary syndrome/atypical chest pain/musculoskeletal chest pain Admission/Observation Consideration of admission/observation: Escalation of care including admission/observation considered Consult Healthcare Provider Management of the patient was discussed with: Resizer Operator Cardiology Dr. Trinidad Lab Data MDM Lab Attestation statement: I reviewed the patient's lab results. 08/07/25 11:05 08/07/25 11:05 Labs: Lab Results 08/07/25 08/07/25 08/07/25 Range/Units 11:05 13:05 15:42 WBC 4.0 L (4.8-10.8) X10*3/uL RBC 4.55 L (4.60-5.80) X10*6/uL Hgb 15.2 (14.0-18.0) g/dl Hct 44.9 (42.0-52.0) % MCV 98.7 H (80.0-98.0) fL MCH 33.4 H (27.0-33.0) pg MCHC 33.9 (31.0-36.0) g/dl RDW 12.3 (11.0-16.0) % Plt Count 100 L (160-400) X10*3/uL MPV 9.6 (9.4-12.4) fL Immature Gran % (Auto) 0.2 (0.0-0.4) % Neut % (Auto) 77.8 H (45-73) % Lymph % (Auto) 11.4 L (20-40) % Schoolcraft % (Auto) 7.2 (2-11) % Eos % (Auto) 2.7 (0-4) % Baso % (Auto) 0.7 (0-2) % Lymph # (Auto) 0.5 L (1.2-4.9) X10*3/uL [place]craft # (Auto) 0.3 (0.1-1.2) X10*3/uL Eos # (Auto) 0.1 (0.0-0.4) X10*3/uL Baso # (Auto) 0.0 (0.0-0.2) X10*3/uL Abs Immat Gran (auto) 0.01 (0.00-0.03) X10*3/uL Absolute Neuts (auto) 3.1 (2.0-8.3) x10*3/uL Absolute Nucleated RBC 0.000 (0.0-0.012) X10*3/uL Nucleated RBC % (auto) 0.0 (0.0-0.2) /100WBC Sodium 144 (135-145) mmol/L Potassium 4.7 (3.3-5.1) mmol/L Chloride 111 H (96-108) mmol/L Carbon Dioxide 28 (22-29) mmol/L Anion Gap 10 L (12-20) BUN 23 H (9-16) mg/dL Creatinine 1.69 H (0.5-1.4) mg/dL Estim Creat Clear Calc 39.5 Estimated GFR 40 Random Glucose 103 (60-115) mg/dL Calcium 9.7 (8.4-10.2) mg/dL Troponin I High Sens 13.5 21.5 D 22.7 (<3.5-35.0) ng/L Independent Interpretation I performed an independent interpretation of an: EKG (EKG was reviewed interpreted by me as sinus bradycardia with PAC no ST-T changes no acute ischemia) Radiology Impression Discussion of test interpretation with radiology: I have reviewed the radiologist's reading. External Record Review External record reviewed: Inpatient record Discharge Plan Discharge Clinical Impression: Chest pain Qualifiers: Chest pain type: unspecified Qualified Code(s): R07.9 - Chest pain, unspecified Patient Disposition: Admitted As Inpatient Print Language: Ukrainian
[2025-08-07 13:30] LABS: Troponin-I High Sensitivity 21.5 ng/L (<3.5-35.0)
--- NOTE | 2025-08-07 13:42 | MHC.EDTECH ---
3rd troponin ordered in error 2 completed
--- OUTSIDE RECORDS SUMMARY | 2025-08-07 14:15 | XMS_ITS | Encounter Summary ---
Author Organization [employer] Address [address] [facility] [address] [place] [address] Care Team Providers Care Full Stack Php Developer Name Role Phone Veronica Gallardo MD Primary Care Provider [phone] Brien Vargas PharmD Unavailable Earline Quinn RN Unavailable Encounter Details Date Type Department Care Team (Latest Contact Info) Description 08/07/2025 Travel Social History Tobacco Use Types Packs/Day [...] Description 08/14/2025 10:00 AM EST Medication Management [address] [address] Brien Vargas, PharmD [address] [place] [address] 08/22/2025 1:00 PM EST Anticoagulation - Warfarin Visit [address] [address] 09/02/2025 11:00 AM EST Office Visit [address] [address] Veronica Gallardo MD [address] [place] [address] 10/14/2025 10:00 AM EST Medication Management [address] [address] Brien Vargas, PharmD [address] [place] [phone] documented as of this encounter Goals Goal Patient Goal Type Associated Problems Recent Progress Patient-Stated? Author Blood Pressure < 140/90 Blood Pressure 144/84( 025 10:00 AM EDT) No Brien Vargas, PharmD documented as of this encounter Visit Diagnoses Not on filedocumented in this encounter Additional Health Concerns Assessment Noted Time PHQ-9 Depression Total Score: 0 05/30/20 9:11 AM EDT documented as of this encounter Care Teams Full Stack Php Developer Relationship Specialty Start Date End Date Veronica Gallardo MD [address] [place] [address] PCP - General Family Medicine 08/09/12 Brien Vargas, PharmD [address] [place] [phone] Pharmacist Internal Medicine 11/30/22 Earline Quinn RN [address] [place] [address] Registered Nurse Family Medicine 07/29/25 documented as of this encounter
--- OUTSIDE RECORDS SUMMARY | 2025-08-07 14:15 | XMS_ITS | Encounter Summary ---
Author Organization [employer] Address [address] [facility] 7t [place] [address] Care Team Providers Care Hydrology Professor Name Role Phone Veronica Gallardo MD Primary Care Provider [phone] Brien Vargas PharmD Unavailable [phone] Earline Quinn RN Unavailable [phone] Reason for Referral * Consultation (Routine) - Authorized Specialty Diagnoses / Procedures Referred By Joseph alvarado Referred To Contact Pharmacy Diagnoses Hypertension, unspecified type Veronica Gallardo MD [address] [place] [address] Phone: tel: fax: Referral ID Status Reason Start Date Expiration Date Visits Requested Visits Authorized [id number] Authorized Consult and Treat 08/06/2025 08/06/2026 6 6 Encounter Details Date Type Department Care Team (Late st Contact Info) Description 08/06/2025 Orders Only [facility] [address] [place] [phone] Veronica Gallardo MD [address] [place] [address] [phone] Hypertension, unspecified type (Primary Dx) Social History [...] Description 08/14/2025 10:00 AM EST Medication Management [facility] [address] [place] [address] Brien Vargas, PharmD [address] [place] [address] 08/22/2025 1:00 PM EST Anticoagulation - Warfarin Visit [facility] [address] [place] [phone] 09/02/2025 11:00 AM EST Office Visit [address] [address] Veronica Gallardo MD [place], [place] 10/14/2025 10:00 AM EST Medication Management [address] [phone] Brien Vargas, PharmD [address] [place], [place] Scheduled Referrals Name Type Priority Associated Diagnoses Orde r Schedule Referral to Pharmacy CDTM Outpatient Referral Routine Hypertension, unspecified type Ordered: 08/06/2025 documented as of this encounter Goals Goal [...] documented as of this encounter Care Teams Hydrology Professor Relationship Specialty Start Date End Date Veronica Gallardo MD [address] [place] [phone] PCP - General Family Medicine 08/09/12 Brien Vargas, PharmD [address] [place] [address] [phone] Pharmacist Internal Medicine 11/30/22 Earline Quinn, RENNY [address] [place] [address] [phone] Registered Nurse Family Medicine 07/29/25 documented as of this encounter
--- OUTSIDE RECORDS SUMMARY | 2025-08-07 14:15 | XMS_ITS | Encounter Summary ---
Author Organization [employer] Address [address] [facility] [address] [place] [address] Care Team Providers Care Retail Pharmacy Manager Name Role Phone Veronica Gallardo MD Primary Care Provider [phone] Brien Vargas PharmD Unavailable [phone] Earline Quinn RN Unavailable [phone] Reason for Visit * Reason Onset Date Comments Paperwork/Forms 08/02/2025 Encounter Details Date Type Department Care Team (Late st Contact Info) Description 08/02/2025 Telephone [facility] [address] [place], [place] [phone] Veronica Gallardo MD [address] [place], [place] [phone] Paperwork/Forms Social History Tobacco Use Types Packs/Day Years [...] encounter Miscellaneous Notes * Telephone Encounter - Marlyn Murdock RN - 08/02/2025 3:32 PM EDT Received dental clearance form from [facility]. Placed form on PCP desk for review &signature. documented in this encounter Plan of Treatment Upcoming Encounters Date Type Department Care Team (Latest Contact Info) Description 08/14/2025 10:00 AM EST Medication Management [facility] [address] [place] [address] Brien Vargas, PharmD [address] [place] [address] 08/22/2025 1:00 PM EST Anticoagulation - Warfarin Visit [address] [address] 09/02/2025 11:00 AM EST Office Visit [address] [place] [address] Veronica Gallardo MD [address] [place], [place] [phone] 10/14/2025 10:00 AM EST Medication Management [facility] [address] [place], [place] [phone] Brien Vargas, PharmD [address] [place] [address] documented as of this encounter Goals Goal [...] documented as of this encounter Care Teams Retail Pharmacy Manager Relationship Specialty Start Date End Date Veronica Gallardo MD [address] [place] [address] [phone] PCP - General Family Medicine 08/09/12 Brien Vargas, PharmD [address] [place] [address] [phone] Pharmacist Internal Medicine 11/30/22 Earline Quinn, RENNY [address] [place] [address] [phone] Registered Nurse Family Medicine 07/29/25 documented as of this encounter
--- OUTSIDE RECORDS SUMMARY | 2025-08-07 14:15 | XMS_ITS | Encounter Summary ---
Author Organization [employer] Address [address] [facility] [address] [place] [address] Care Team Providers Care Electronic Die Maker Name Role Phone Veronica Gallardo MD Primary Care Provider [phone] Brien Vargas PharmD Unavailable [phone] Earline Quinn RN Unavailable [phone] Encounter Details Date Type Department Care Team (Late st Contact Info) Description 08/05/[address] [facility] [address] [place], [place] [phone] Veronica Gallardo MD [address] [place], [place] [phone] Back pain with left-sided radiculopathy Social History [...] Description 08/14/2025 10:00 AM EST Medication Management [address] [address] Brien Vargas, PallaviD [address] [place] [address] 08/22/2025 1:00 PM EST Anticoagulation - Warfarin Visit [address] [address] 09/02/2025 11:00 AM EST Office Visit [address] [address] Veronica Gallardo MD [address] [place] [address] 10/14/2025 10:00 AM EST Medication Management [address] [address] Brien Vargas, PharmD [address] [place] [address] [place] [address] documented as of this encounter Goals Goal [...] documented as of this encounter Care Teams Electronic Die Maker Relationship Specialty Start Date End Date Veronica Gallardo MD [address] [place] [address] PCP - General Family Medicine 08/09/12 Brien Vargas, [place] [address] Pharmacist Internal Medicine 11/30/22 Earline Quinn, [place] [address] Registered Nurse Family Medicine 07/29/25 documented as of this encounter
--- OUTSIDE RECORDS SUMMARY | 2025-08-07 14:15 | XMS_ITS | Encounter Summary ---
Author Organization [employer] Address [address] [place] [address] Care Team Providers Care Drafting Layout Man Name Role Phone Veronica Gallardo MD Primary Care Provider [phone] Brien Vargas PharmD Unavailable [phone] Earline Quinn RN Unavailable [phone] Encounter Details Date Type Department Care Team (Late st Contact Info) Description 08/05/2025 Telephone [facility] [address] [place], [place] [phone] Veronica Gallardo MD [address] [place], [place] [phone] Social History Tobacco Use Types Packs/Day Years [...] encounter Miscellaneous Notes * Telephone Encounter - Dale Oh - 08/05/2025 10:43 AM EDT Pharmacy is requesting an updated CDTM referral with a diagnosis of hypertension . I10 This is to replace existing referral which will before next appointment. Please send at your earliest convenience. Thank you! documented in this encounter Plan of Treatment Upcoming Encounters Date Type Department Care Team (Latest Contact Info) Description 08/14/2025 10:00 AM EST Medication Management [facility] [address] [place] [phone] Brien Vargas, PharmD [address] [place] [address] 08/22/2025 1:00 PM EST Anticoagulation - Warfarin Visit [address] [address] 09/02/2025 11:00 AM EST Office Visit [address] [phone] Veronica Gallardo MD [address] [place], [place] [phone] 10/14/2025 10:00 AM EST Medication Management [facility] [address] [place], [place] [phone] Brien Vargas, PharmD [address] [place] [address] documented as of this encounter Goals Goal Patient Goal Type Associated Problems Recent Progress Patient-Stated? Author Blood Pressure < 140/90 Blood Pressure 144/84( 025 10:00 AM EDT) No Brien Vargas, Efrain documented as of this encounter Visit Diagnoses Not on filedocumented in this encounter Additional Health Concerns Assessment Noted Time PHQ-9 Depression Total Score: 0 05/30/20 9:11 AM EDT documented as of this encounter Care Teams Drafting Layout Man Relationship Specialty Start Date End Date Veronica Gallardo MD [address] [place] [address] [phone] PCP - General Family Medicine 08/09/12 Brien Vargas, PharmD [address] [place] [address] [phone] Pharmacist Internal Medicine 11/30/22 Earline Quinn, RENNY [address] [place] [address] [phone] Registered Nurse Family Medicine 07/29/25 documented as of this encounter
--- OUTSIDE RECORDS SUMMARY | 2025-08-07 14:15 | XMS_ITS | Encounter Summary ---
Author Organization [employer] Address [address] [facility] [address] [place] [address] Care Team Providers Care Studio Set Up Worker Name Role Phone Veronica Gallardo MD Primary Care Provider Brien Vargas PharmD Unavailable [phone] Earline Quinn RN Unavailable [phone] Encounter Details Date Type Department Care Team (Late st Contact Info) Description 08/07/2025 Orders Only [facility] External Provider, [facility] Social History Tobacco Use Types Packs/Day Years [...] Description 08/14/2025 10:00 AM EST Medication Management [address] [address] Brien Vargas, PharmD [address] [place] [address] 08/22/2025 1:00 PM EST Anticoagulation - Warfarin Visit [address] [address] 09/02/2025 11:00 AM EST Office Visit [address] [address] Veronica Gallardo MD [address] [place] [address] 10/14/2025 10:00 AM EST Medication Management [address] [address] Brien Vargas, PharmD [address] [place] [address] documented as of this encounter Goals Goal Patient Goal Type Associated Problems Recent Progress Patient-Stated? Author Blood Pressure < 140/90 Blood Pressure 144/84( 025 10:00 AM EDT) No Brien Vargas, Efrain documented as of this encounter Procedures Procedure Name Priority Date/Time Associated Diagnosis Comments HIGH SENSITIVITY TROPONIN I Routine 08/07/2025 1:05 PM EDT XR CHEST 2 VIEWS Routine 08/07/2025 11:2 9 AM EDT documented in this encounter Results * High Sensitivity Troponin I (08/07/2025 1:05 PM EDT) TROPONIN I HIGH SENSITIVITY 21.5 <3.5 - 35.0 ng/L [facility] Comment:The [place] high sens itivity Troponin-I results should beused in conjunction with other diagnostic information suchas ECG, clinical observations and information, and patientsymptoms to aid in the diagnosis of [place]. 08/07/2025 1:05 PM EDT 08/07/2025 1:08 PM EDT us Generic External Data Provider LAB BLOOD ORDERAB LES Final Result Performing Organization Address City/State/[facility] Co de Phone Number [facility] [address] [place] [phone] * XR Chest 2 Views (08/07/2025 11:29 AM EDT) Anatomical Region Laterality Modality Chest Radiographic Svitlana ging 08/07/2025 11:2 9 AM EDT Narrative 08/07/2025 11:39 AM EDT [address] [address] XRay Report Signed Patient: Chriss Munoz MR#: [id number] : 1955 Acct:[id number] Age/Sex: 70 / M ADM Date: 08/07/25 Loc: HO.ED Attending Dr: Ordering Physician: Jc Lehman MD Date of Service: 08/07/25 Procedure(s): XR chest 2V Accession Number(s): [id number] cc: Jc Lehman MD; Veronica Gallardo MD Reason for Exam: chest pain EXAMINATION: XR CHEST 2 VIEWS HISTORY: chest pain COMPARISON: Comparison is made with the prior examination dated 07/18/2025. FINDINGS: AP and lateral views of the chest are submitted. There is subsegmental atelectasis at the lung bases. The lungs are otherwise clear. There is no pleural effusion, pneumothorax, or pulmonary vascular congestion. The heart is normal in size. The bones are intact. XR/XR chest 2V IMPRESSION: Bibasilar subsegmental atelectasis. Electronically signed by: Edwin Ventura MD 08/07/2025 11:36 AM EDT RP Dictated By: Edwin Ventura MD Signed By: <Electronically signed by Edwin Ventura MD in OV> 08/07/25 1136 DD/ 1129 TD/TT: 08/07/25 1134 Tire Design Engineer: Procedure Note Donotuseinterpreter, Image - 08/07/2025 [place] [address] XRay Report Signed Patient: Lenard Munoz#: [id number] : 1955cct:[id number] Age/Sex: 70 / MADM Date: 08/07/25 Loc: HO.ED Attending Dr: Ordering Physician: Jc Lehman MD Date of Service: 08/07/25 Procedure(s): XR chest 2V Accession Number(s): [id number] cc: Jc Lehman MD; Veronica Gallardo MD Reason for Exam: chest pain EXAMINATION: XR CHEST 2 VIEWS HISTORY: chest pain COMPARISON: Comparison is made with the prior examination dated 07/18/2025. FINDINGS: AP and lateral views of the chest are submitted. There is subsegmental atelectasis at the lung bases. The lungs are otherwise clear. There is no pleural effusion, pneumothorax, or pulmonary vascular congestion. The heart is normal in size. The bones are intact. XR/XR chest 2V IMPRESSION: Bibasilar subsegmental atelectasis. Electronically signed by: Edwin Ventura MD 08/07/2025 11:36 AM EDT RP Dictated By: Edwin Ventura MD Signed By: <Electronically signed by Edwin Ventura MD in OV> 08/07/25 1136 DD/ 1129 TD/TT: 08/07/25 1134 Tire Design Engineer: [facility] External Provider IMG XR PROCEDURES Final Result documented in this encounter Visit Diagnoses Not on filedocumented in this encounter Additional Health Concerns Assessment Noted Time PHQ-9 Depression Total Score: 0 05/30/20 9:11 AM EDT documented as of this encounter Care Teams Studio Set Up Worker Relationship Specialty Start Date End Date Veronica Gallardo MD [address] [place] [address] PCP - General Family Medicine 08/09/12 Brien Vargas, PharmD [address] [place], [place] [phone] Pharmacist Internal Medicine 11/30/22 Earline Quinn, RN [address] [place] [address] Registered Nurse Family Medicine 07/29/25 documented as of this encounter
--- OUTSIDE RECORDS SUMMARY | 2025-08-07 14:15 | XMS_ITS | Encounter Summary ---
Author Organization [employer] Address [address] [facility] 7t [place] [address] Care Team Providers Care Burning Supervisor Name Role Phone Veronica Gallardo MD Primary Care Provider [phone] Brien Vargas PharmD Unavailable [phone] Earline Quinn RN Unavailable [phone] Reason for Visit * Reason Onset Date Comments Durable Medical Equipment 08/05/2025 DME Re quest: handheld shower / shower extension Encounter Details Date Type Department Care Team (Late st Contact Info) Description 08/05/2025 Telephone [facility] [address] [place], [place] [phone] Veronica Gallardo MD [address] [place], [place] [phone] Durable Medical Equipment (DME Request: handheld shower / shower extension) Social History Tobacco Use Types Packs/Day Years [...] encounter Miscellaneous Notes * Telephone Encounter - Jess Oh - 08/05/2025 2:20 PM EDT DME order was generated for the requested items, and sent to Prasanth via FAX with supporting documentation. Confirmation was uploaded to Media. * Telephone Encounter - Jess Oh - 08/05/2025 2:20 PM EDT ----- Message from Veronica Gallardo MD sent at 07/31/2025 3:58 PM EDT ----- Please write a script for handheld shower / shower extension, which was requested by his personal carer / coordinator. Diagnosis chronic knee pain and back pain. Thank you documented in this encounter Plan of Treatment Upcoming Encounters Date Type Department Care Team (Latest Contact Info) Description 08/14/2025 10:00 AM EST Medication Management [address] [address] Brien Vargas, [place] [address] 08/22/2025 1:00 PM EST Anticoagulation - Warfarin Visit [address] [address] 09/02/2025 11:00 AM EST Office Visit [address] [address] [place] [address] 10/14/2025 10:00 AM EST Medication Management [address] [address] Brien Vargas, PharmDonte [address] [place] [address] documented as of this encounter Goals Goal Patient Goal Type Associated Problems Recent Progress Patient-Stated? Author Blood Pressure < 140/90 Blood Pressure 144/84( 025 10:00 AM EDT) No Brien Vargas PharmDonte documented as of this encounter Visit Diagnoses Not on filedocumented in this encounter Additional Health Concerns Assessment Noted Time PHQ-9 Depression Total Score: 0 05/30/20 25 9:11 AM EDT documented as of this encounter Care Teams Burning Supervisor Relationship Specialty Start Date End Date [place] [address] PCP - General Family Medicine 08/09/12 Brien Vargas, PharmD [address] [place] [address] Pharmacist Internal Medicine 11/30/22 Earline Quinn, RENNY [address] [place] [address] Registered Nurse Family Medicine 07/29/25 documented as of this encounter
--- OUTSIDE RECORDS SUMMARY | 2025-08-07 14:15 | XMS_ITS | Encounter Summary ---
Author Organization [employer] Address [address] 7t [place] [address] Care Team Providers Care Apartment Leasing Specialist Name Role Phone Veronica Gallardo MD Primary Care Provider [phone] Brien Vargas PharmD Unavailable [phone] Earline Quinn RN Unavailable [phone] Reason for Visit * Reason Onset Date Comments Durable Medical Equipment 07/29/2025 Encounter Details Date Type Department Care Team (Late st Contact Info) Description 07/29/2025 Telephone [facility] [address] [place], [place] [phone] Veronica Gallardo MD [address] [place], [place] [phone] Durable Medical Equipment Social History Tobacco Use [...] is your housing situation today? I have pirmo thomas 05/30/[address] you [...] t he electric, gas, oil or water [employer] threatened to shut off services in your [...] * Telephone Encounter - Jess Oh - 08/02/2025 4:39 PM EDT Order was requested and resolved in another thread initiated by provider. * Telephone Encounter - Jerry Rivero - 07/29/2025 2:11 PM EDT Tc from [facility] with [facility] requesting a hand held shower. Any questions contact pt at [phone] documented in this encounter Plan of Treatment Upcoming Encounters Date Type Department Care Team (Latest Contact Info) Description 08/14/2025 10:00 AM EST Medication Management [facility] [address] [place] [address] Brien Vargas, PharmD [address] [place] [address] 08/22/2025 1:00 PM EST Anticoagulation - Warfarin Visit [address] [phone] 09/02/2025 11:00 AM EST Office Visit [address] [address] Veronica Gallardo MD [address] [place] [address] 10/14/2025 10:00 AM EST Medication Management [address] [phone] Brien Vargas, Efrain [address] [place] [address] documented as of this encounter Goals Goal [...] documented as of this encounter Care Teams Apartment Leasing Specialist Relationship Specialty Start Date End Date Veronica Gallardo MD [address] [place] [address] [phone] PCP - General Family Medicine 08/09/12 Brien Vargas, PharmD [address] [place] [address] [phone] Pharmacist Internal Medicine 11/30/22 Earline Quinn, RENNY [address] [place] [address] [phone] Registered Nurse Family Medicine 07/29/25 documented as of this encounter
--- OUTSIDE RECORDS SUMMARY | 2025-08-07 14:16 | XMS_ITS | Encounter Summary ---
Author Organization [employer] Address [address] [facility] [address] [facility] [address] 7t [place] [address] Care Team Providers Care Filenet P8 Developer Name Role Phone Veronica Gallardo MD Primary Care Provider [phone] Brien Vargas PharmD Unavailable [phone] Earline Quinn RN Unavailable [phone] Encounter Details Date Type Department Care Team (Late st Contact Info) Description 11/04/2023 Orders Only [facility] [address] [place], [place] [phone] Veronica Gallardo MD [address] [place], [place] [phone] Alcohol use disorder, moderate, in early remission [...] Description 08/14/2025 10:00 AM EST Medication Management [address] [address] Brien Vargas, PallaviD [address] [place] [address] 08/22/2025 1:00 PM EST Anticoagulation - Warfarin Visit [address] [address] 09/02/2025 11:00 AM EST Office Visit [address] [address] Veronica Gallardo MD [address] [place] [address] 10/14/2025 10:00 AM EST Medication Management [address] [address] Brien Vargas, PharmD [address] [place] [address] documented as of this encounter Goals Goal Patient Goal Type Associated Problems Recent Progress Patient-Stated? Author Blood Pressure < 140/90 Blood Pressure 144/84( 025 10:00 AM EDT) No Brine Vargas PharmD documented as of this encounter Visit Diagnoses Diagnosis Alcohol use disorder, moderate, in early remission (CMS/HCC) ([facility])- Primary documented in this encounter Additional Health Concerns Assessment Noted Time PHQ-9 Depression Total Score: 0 03/24/20 11:18 AM EDT documented as of this encounter Care Teams Filenet P8 Developer Relationship Specialty Start Date End Date Veronica Gallardo MD [address] [place], [place] [phone] PCP - General Family Medicine 08/09/12 Brien Vargas, PallaviD [address] [place], [place] [phone] Pharmacist Internal Medicine 11/30/22 Earline Quinn, RENNY [address] [place], [place] [phone] Registered Nurse Family Medicine 07/29/25 documented as of this encounter
--- OUTSIDE RECORDS SUMMARY | 2025-08-07 14:16 | XMS_ITS | Encounter Summary ---
Author Organization [employer] Address [address] 7t [place] [address] Care Team Providers Care Reptile Farmer Name Role Phone Veronica Gallardo MD Primary Care Provider [phone] Brien Vargas PharmD Unavailable [phone] Earline Quinn RN Unavailable [phone] Encounter Details Date Type Department Care Team (Late st Contact Info) Description 10/12/2022 Orders Only [facility] [address] [place], [place] [phone] Deya Barber LPN Social History Tobacco Use [...] Description 08/14/2025 10:00 AM EST Medication Management [facility] [address] [place], [place] [phone] Brien Vargas, PharmD [address] [place], [place] [phone] 08/22/2025 1:00 PM EST Anticoagulation - Warfarin Visit [address] [address] 09/02/2025 11:00 AM EST Office Visit [address] [address] Veronica Gallardo MD [facility] [place] [address] 10/14/2025 10:00 AM EST Medication Management [address] [address] Brien Vargas, PharmD [address] [place] [address] documented as of this encounter Visit Diagnoses Not on filedocumented in this encounter Care Teams Reptile Farmer Relationship Specialty Start Date End Date Veronica Gallardo MD [address] [place] [address] [phone] PCP - General Family Medicine 08/09/12 Brien Vargas, PharmD [address] [place] [address] [phone] Pharmacist Internal Medicine 11/30/22 Earline Quinn, RENNY [address] [place] [address] [phone] Registered Nurse Family Medicine 07/29/25 documented as of this encounter
--- OUTSIDE RECORDS SUMMARY | 2025-08-07 14:16 | XMS_ITS | Encounter Summary ---
Author Organization [employer] Address [address] [facility] 7t [place] [address] Care Team Providers Care Washer Assembler Name Role Phone Veronica Gallardo MD Primary Care Provider [phone] Brien Vargas PharmD Unavailable [phone] Earline Quinn RN Unavailable [phone] Reason for Referral * Consultation (Routine) - Canceled Specialty Diagnoses / Procedures Referred By Joseph alvarado Referred To Contact Pharmacy Diagnoses Hypertension, unspecified type Veronica Gallardo MD [address] [place] [address] Phone: tel: fax: Referral ID Status Reason Start Date Expiration Date V isits Requested Visits Authorized [id number] Canceled Consult and Treat 10/12/2024 10/12/2025 6 6 Encounter Details Date Type Department Care Team (Late st Contact Info) Description 10/12/2024 Orders Only [facility] [address] [place] [address] [phone] Veronica Gallardo MD [address] [place] [address] [phone] Hypertension, unspecified type (Primary Dx) Social History [...] Description 08/14/2025 10:00 AM EST Medication Management [address] [address] Brien Vargas, PharmD [address] [place] [address] 08/22/2025 1:00 PM EST Anticoagulation - Warfarin Visit [address] [address] 09/02/2025 11:00 AM EST Office Visit [address] [address] Veronica Gallardo MD [address] [place] [address] 10/14/2025 10:00 AM EST Medication Management [address] [address] Brien Vargas, PharmD [address] [place] [address] Scheduled Referrals Name Type Priority Associated Diagnoses [...] documented as of this encounter Care Teams Washer Assembler Relationship Specialty Start Date End Date Veronica Gallardo MD [address] [place] [address] PCP - General Family Medicine 08/09/12 Brien Vargas, PharmD [address] [place] [address] Pharmacist Internal Medicine 11/30/22 Earline Quinn, RENNY [address] [place] [address] Registered Nurse Family Medicine 07/29/25 documented as of this encounter
--- OUTSIDE RECORDS SUMMARY | 2025-08-07 14:16 | XMS_ITS | Encounter Summary ---
Author Organization [employer] Address [address] [facility] [facility] [address] 7t [place] [address] Care Team Providers Care Peel Oven Tender Name Role Phone Veronica Gallardo MD Primary Care Provider [phone] Brien Vargas PharmD Unavailable [phone] Earline Quinn RN Unavailable [phone] Reason for Visit * Reason Comments Med Refill Encounter Details Date Type Department Care Team (Late st Contact Info) Description 08/14/[address] [facility] [address] [place], [place] [phone] Brien Vargas, PharmD [address] [place], [place] [phone] Essential hypertension Social History Tobacco Use Types [...] PharmD - 08/23/2023 11:57 AM EST [facility] will send 1 month fill of hydralazine 25 mg PO TID. Patient rescheduled last cardiology and nephrology visits. Needs to keep upcoming CDTM visit 09/09/2023. documented in this encounter Plan of Treatment Upcoming Encounters Date Type Department Care Team (Latest Contact Info) Description 08/14/2025 10:00 AM EST Medication Management [facility] [address] [place] [address] Brien Vargas PharmD [address] [place] [address] 08/22/2025 1:00 PM EST Anticoagulation - Warfarin Visit [facility] [address] [place] [address] 09/02/2025 11:00 AM EST Office Visit [address] [address] Veronica Gallardo MD [address] [place] [address] 10/14/2025 10:00 AM EST Medication Management [facility] [address] [place] [address] Brien Vargas PharmD [address] [place] [address] documented as of this encounter Goals Goal [...] documented as of this encounter Care Teams Peel Oven Tender Relationship Specialty Start Date End Date Veronica Gallardo MD [address] [place] [address] PCP - General Family Medicine 08/09/12 Brien Vargas, PharmD [address] [place] [address] Pharmacist Internal Medicine 11/30/22 Earline Quinn, RENNY [address] [place] [address] Registered Nurse Family Medicine 07/29/25 documented as of this encounter
--- OUTSIDE RECORDS SUMMARY | 2025-08-07 14:16 | XMS_ITS | Encounter Summary ---
Author Organization [employer] [facility] Address [address] [facility] 7t [place] [address] Care Team Providers Care X [employer] Wireman Name Role Phone Veronica Gallardo MD Primary Care Provider [phone] Brien Vargas PharmD Unavailable [phone] Earline Quinn RN Unavailable [phone] Reason for Visit * Reason Comments Med Refill Encounter Details Date Type Department Care Team (Late st Contact Info) Description 01/14/2023 Refill [facility] [address] [place] [phone] Estefania Gilbert MD [address] [place] [address] [phone] Social History Tobacco Use Types Packs/Day Years [...] Description 08/14/2025 10:00 AM EST Medication Management [facility] [address] [place] [address] [phone] Brien Vargas, PharmD [address] [place] [address] 08/22/2025 1:00 PM EST Anticoagulation - Warfarin Visit [address] [address] 09/02/2025 11:00 AM EST Office Visit [address] [address] Veronica Gallardo MD [address] [place] [address] 10/14/2025 10:00 AM EST Medication Management [address] [phone] Brien Vargas PharmD [address] [place] [address] documented as of this encounter Goals Goal Patient Goal Type Associated Problems Recent Progress Patient-Stated? Author Blood Pressure < 140/90 Blood Pressure 144/84( 025 10:00 AM EDT) No Brien Vargas PharmD documented as of this encounter Visit Diagnoses Not on filedocumented in this encounter Care Teams [employer] Wireman Relationship Specialty Start Date End Date Veronica Gallardo MD [address] [place] [address] PCP - General Family Medicine 08/09/12 Brien Vargas PharmD [address] [place] [address] Pharmacist Internal Medicine 11/30/22 Earline Quinn, RENNY [address] [place] [address] Registered Nurse Family Medicine 07/29/25 documented as of this encounter
--- OUTSIDE RECORDS SUMMARY | 2025-08-07 14:16 | XMS_ITS | Encounter Summary ---
Author Organization [employer] Address [address] [facility] [address] [facility] [address] 7t [place] [address] Care Team Providers Care Dragline Operator Name Role Phone Veronica Gallardo MD Primary Care Provider [phone] Brien Vargas PharmD Unavailable [phone] Earline Quinn RN Unavailable [phone] Reason for Visit * Reason Comments Med Refill Encounter Details Date Type Department Care Team (Late st Contact Info) Description 10/12/2023 Refill [facility] 230 [place], [place] [phone] Veronica Gallardo MD [address] [place], [place] [phone] Back pain with left-sided radiculopathy Social History [...] Description 08/14/2025 10:00 AM EST Medication Management [address] [address] Brien Vargas, PallaviD [address] [place] [address] 08/22/2025 1:00 PM EST Anticoagulation - Warfarin Visit [address] [address] 09/02/2025 11:00 AM EST Office Visit [address] [address] Veronica Gallardo MD [address] [place] [address] 10/14/2025 10:00 AM EST Medication Management [address] [address] Brien Vargas, PharmD [address] [place] [address] documented as of this encounter Goals Goal Patient Goal Type Associated Problems Recent Progress Patient-Stated? Author Blood Pressure < 140/90 Blood Pressure 144/84( 10:00 AM EDT) No Brien Vargas PharmD documented as of this encounter Visit Diagnoses Diagnosis Back pain with left-sided radiculopathy documented in this encounter Additional Health Concerns Assessment Noted Time PHQ-9 Depression Total Score: 0 03/24/20 11:18 AM EDT documented as of this encounter Care Teams Dragline Operator Relationship Specialty Start Date End Date Veronica Gallardo MD [address] [place], [place] [phone] PCP - General Family Medicine 08/09/12 Brien Vargas PharmD [address] [place] [address] [phone] Pharmacist Internal Medicine 11/30/22 Earline Quinn, RENNY [address] [place] [address] [phone] Registered Nurse Family Medicine 07/29/25 documented as of this encounter
--- OUTSIDE RECORDS SUMMARY | 2025-08-07 14:16 | XMS_ITS | Encounter Summary ---
Author Organization [employer] Address [address] [facility] [address] [place] [address] Care Team Providers Care Child Psychometrist Name Role Phone Veronica Gallardo MD Primary Care Provider [phone] Brien Vargas PharmD Unavailable [phone] Earline Quinn RN Unavailable [phone] Encounter Details Date Type Department Care Team (Late st Contact Info) Description 04/02/2025 Orders Only [facility] [address] [place], [place] [phone] Veronica Gallardo MD [address] [place], [place] [phone] Hypertension, unspecified type (Primary Dx); Stage 3 [...] your housing situation today? I have pirmo william 03/13/[address] you [...] Description 08/14/2025 10:00 AM EST Medication Management [address] [address] Brien Vargas, PharmD [address] [place] [phone] 08/22/2025 1:00 PM EST Anticoagulation - Warfarin Visit [address] [address] 09/02/2025 11:00 AM EST Office Visit [address] [address] Veronica Gallardo MD [address] [place] [phone] 10/14/2025 10:00 AM EST Medication Management [address] [address] Brien Vargas, PharmD [address] [place] [phone] Scheduled Orders Name Type Priority Associated Diagnoses [...] EDT) Hepatitis B Surface Ag Negative Negative [facility] Venous blood specimen / Unknown 04/15/2025 9:10 AM EDT 04/15/2025 11:17 AM EDT Veronica Gallardo MD LAB BLOOD ORDERABLES Final Resul t Performing Organization Address [facility] Co de Phone Number [facility] [address] [place] [phone] * HIV-1/2 Antigen and Antibodies, Fourth Generation, with Reflexes (04/15/2025 9:10 AM EDT) HIV AB/AG Nonreactive Nonreactive [facility] Comment:HIV-1 p24 Ag and/or HIV-1/HIV-2 Ab not detected.A test result that is nonreactive does not exclude thepossibility of exposure to or infection with HIV-1 and/orHIV-2. Nonreactive results in this assay for individualswith prior exposure to HIV-1 and/or HIV-2 may be due toantigen and antibody levels that are below the limit ofdetection of this assay.The [employer] Health[employer]est HIV Ag/Ab Combo assay result andsupplemental assay results should be interpreted inconjunction with the patient's clinical presentation,history and other laboratory results. If the results areinconsistent with clinical evidence, additional testing issuggested to confirm the result. Venous blood specimen / Unknown 04/15/2025 9:10 AM EDT 04/15/2025 11:17 AM EDT us Veronica Gallardo MD LAB BLOOD ORDERABLES Final Resul t Performing Organization Address [facility] Co de Phone Number [facility] [address] [place] [phone] * Hepatitis C Antibody with Reflex to HCV, RNA, Quantitative, Real-Time PCR (04/15/2025 9:10 AM EDT) Hepatitis C Antibody Nonreactive Nonreactive [facility] Comment:Antibodies to HCV no t detected; does not exclude early acuteHCV infection. Venous blood specimen / Unknown 04/15/2025 9:10 AM EDT 04/15/2025 11:17 AM EDT Veronica Gallardo MD LAB BLOOD ORDERABLES Final Resul t Performing Organization Address City/[facility] Co de Phone Number [facility] [address] [place] [phone] * Syphilis Screen (04/15/2025 9:10 AM EDT) Syphilis Screen Nonreactive Nonreactive [facility] 04/15/2025 9:10 AM EDT 04/15/2025 6:02 PM EDT us Veronica Gallardo MD LAB BLOOD ORDERABLES Final Resul t Performing Organization Address [facility] Phone Number [facility] [address] [place] [phone] * Vitamin B12 (Cobalamin) and Folate Panel, Serum (04/15/2025 9:10 AM EDT) Vitamin B12 224 200 - 900 pg/mL [facility] Comment:NORMAL 200-900 PG/ML INDETERMINATE 160-199 PG/ML DEFICIENT < 160 PG/ML Folate 12.8 > or = 4.0 ng/mL [facility] Comment:Reference Values:> o r = [...] t Performing Organization Address [facility] Co de Phone Number [facility] [address] [place] [phone] * Vitamin D, 25-Hydroxy, Total, Immunoassay (04/15/2025 9:10 AM EDT) Vitamin D 25-OH Total 42.5 >30 ng/mL [facility] Comment: Health Based Reference Values*< 20 ng/mL Pyiqyqnaf57-58 ng/mL Insufficient> 30 ng/mL Sufficient*Ken COLEMAN. N [...] MD LAB BLOOD ORDERABLES Final Resul t [facility] [address] [place] [phone] * Lipid Panel with Reflex to Direct LDL (04/15/2025 9:10 AM EDT) Triglycerides 107 <150 mg/dL [facility] Comment:Desirable Triglyceri de: less than 150 mg/dLBorderline High Triglyceride 150-199 mg/dLHigh Triglyceride: 200-499 mg/dLVery High Triglyceride: greater than or equal to 5OO mg/dL Cholesterol 168 <200 mg/dL [facility] Comment:Desirable Cholestero l: less than 200 mg/dLBorderline High Cholesterol: 200-239 mg/dLHigh Cholesterol: greater than 239 mg/dL LDL Cholesterol Calculated 91 <100 mg/dL [facility] Comment:Desirable LDL: less than 100 mg/dLNear Optimal/Above Optimal LDL: 110- 129 mg/dLBorderline High LDL: 130-159 mg/dLHigh LDL: 160-189 mg/dLVery High LDL: greater than or equal to 190 mg/dL HDL Cholesterol 56 >40 mg/dL [facility] Comment:Desirable HDL: great er than 40 mg/dL Note: This HDL assay may give artificially low results in patients with liver disease. Blood 04/15/2025 9:10 AM EDT 04/15/2025 11:17 AM EDT us Veronica Gallardo MD LAB BLOOD ORDERABLES Final Resul t Performing Organization Address City/[facility] Co de Phone Number [facility] [address] [place] [phone] * Hemoglobin A1c (04/15/2025 9:10 AM EDT) Hemoglobin A1c 5.3 <6.0 % [facility] Comment:Hemoglobin A1C Refer ence Range Adults: 4.8 - 6.0 % Non diabetic: < 6.0 % Goal: < 7.0 %Additional Action Suggested: > 8.0 %Note: Hemoglobin A1c results are invalid for patients with abnormal amounts of HbF. Blood transfusions may impact the HbA1c concentration in the patient sample. Estimated Average Glucose 105 mg/dL [facility] Comment:eAG = Estimated ave rage glucose which is %A1C expressed asaverage glucose, using the formula of the G0U-KztkooqZapwdiy Glucose study (ADAG), Diabetes Care, Vol.31,#8,May. 2007 Blood Venous blood specimen / Unknown 04/15/2025 9:10 AM EDT 04/15/2025 11:17 AM EDT us Veronica Gallardo MD LAB BLOOD ORDERABLES Final Resul t [facility] [address] [place] [phone] * TSH with Reflex to Free T4 (04/15/2025 9:10 AM EDT) TSH reflex Free T4 2.74 0.32 - 4.0 uIU/mL [facility] Blood 04/15/2025 9:10 AM EDT 04/15/2025 11:17 AM EDT us Veronica Gallardo MD LAB BLOOD ORDERABLES Final Resul t [facility] [address] [place] [phone] documented in this encounter Visit Diagnoses Diagnosis Hypertension, unspecified type- Primary Stage 3 chronic kidney disease, unspecified whether stage 3a or 3b CKD ([facility]) ([facility]) Erythrocytosis Polycythemia, secondary Dyslipidemia Other and unspecified hyperlipidemia Vitamin D deficiency Alcohol use disorder, moderate, in early remission ([facility]) ([facility]) Screening for diabetes mellitus Routine screening for STI (sexually transmitted infection) Screening examination for venereal disease documented in this encounter Additional Health Concerns Assessment Noted Time PHQ-9 Depression Total Score: 0 03/24/20 23 11:18 AM EDT documented as of this encounter Care Teams Child Psychometrist Relationship Specialty Start Date End Date Veronica Gallardo MD [address] [place] [phone] PCP - General Family Medicine 08/09/12 Brien Vargas, PallaviD [address] [place], [place] [phone] Pharmacist Internal Medicine 11/30/22 Earline Quinn, RN [address] [place] [address] [phone] Registered Nurse Family Medicine 07/29/25 documented as of this encounter
--- OUTSIDE RECORDS SUMMARY | 2025-08-07 14:16 | XMS_ITS | Encounter Summary ---
Author Organization [employer] [facility] Address [address] [facility] 7[address] [place] [address] Care Team Providers Care Linen Attendant Name Role Phone Veronica Gallardo MD Primary Care Provider [phone] Brien Vargas PharmD Unavailable [phone] Earline Quinn RN Unavailable [phone] Encounter Details Date Type Department Care Team (Late st Contact Info) Description 06/27/2023 Telephone [facility] [address] [place] [address] [phone] Veronica Gallardo MD [address] [place] [address] [phone] Social History Tobacco Use Types Packs/Day Years [...] Description 08/14/2025 10:00 AM EST Medication Management [facility] [address] [place] [address] [phone] Brien Vargas, PharmD [address] [place] [address] [phone] 08/22/2025 1:00 PM EST Anticoagulation - Warfarin Visit [address] [phone] 09/02/2025 11:00 AM EST Office Visit [address] [address] Veronica Gallardo MD [address] [place] [address] 10/14/2025 10:00 AM EST Medication Management [address] [address] Brien Vargas, PharmD [address] [place] [phone] documented as of this encounter Goals Goal [...] documented as of this encounter Care Teams Linen Attendant Relationship Specialty Start Date End Date Veronica Gallardo MD [address] [place] [address] [phone] PCP - General Family Medicine 08/09/12 Brien Vargas, PharmD [address] [place] [address] [phone] Pharmacist Internal Medicine 11/30/22 Earline Quinn, RENNY [address] [place] [address] [phone] Registered Nurse Family Medicine 07/29/25 documented as of this encounter
--- OUTSIDE RECORDS SUMMARY | 2025-08-07 14:16 | XMS_ITS | Clinical Summary ---
Author Organization [employer] Address [address] [place] [address] Care Team Providers Care Accounting Representative Name Role Phone Veronica Gallardo MD Primary Care Provider [phone] Brien Vargas PharmD Unavailable Earline Quinn RN Unavailable [phone] Allergies Active Allergy Reactions Criticality Noted Date Comments Acetaminophen Unknown 03/23/2012 Ibuprofen Unknown High 09/16/2022 Oxycodone Unknown 03/23/2012 Oxycodone-Acetaminophen 09/16/2022 Medications * This document [...] capsule 3 10/04/20 24 Active warfarin (Coumadin) 4 MG tablet TAKE 1 TABLET BY MOUTH EVERY DAY DIRECTED 30 tablet 3 04/29/20 25 Active phenytoin ER (Dilantin) 100 MG capsule TAKE 3 CAPSULES BY MOUTH EVERY DAY IN THE MORNING 270 capsule 1 05/06/20 25 Active hydrALAZINE (Apresoline) 50 MG tabletIndication s:Hypertension, unspecified type TAKE 1 TABLET BY MOUTH THREE TIMES DAILY IN THE MORNING, EVENING, AND BEDTIME 270 tablet 1 05/06/20 25 Active clobetasol (Temovate) 0.05 % ointment Apply topically 2 times daily. 60 g 05/30/20 25 Active amLODIPine (Norvasc) 10 MG tabletIndication s:Hypertension, unspecified type TAKE 1 TABLET BY MOUTH [...] CLINIC 60 tablet 3 07/29/20 25 Active atorvastatin (Lipitor) 20 MG tablet Take 1 tablet (20 mg) by mouth at bedtime. 90 tablet 3 07/31/20 25 Active gabapentin (Neurontin) 300 MG capsuleIndicatio ns:Back pain with left-sided radiculopathy TAKE 1 CAPSULE BY MOUTH AT BEDTIME NEEDED FOR PAIN 30 capsule 1 08/05/20 25 Active atorvastatin (Lipitor) 10 MG tablet TAKE 1 TABLET BY MOUTH AT BEDTIME 90 tablet 3 04/02/20 25 025 Discontinued(R eorder (will not trigger notification to Pharmacy)) warfarin (Coumadin) 1 MG tablet TAKE DIRECTED BY COUMADIN CLINIC 60 tablet 3 04/04/20 25 025 Discontinued gabapentin (Neurontin) 300 MG capsuleIndicatio ns:Back pain with left-sided radiculopathy TAKE 1 CAPSULE BY MOUTH AT BEDTIME NEEDED FOR PAIN 30 capsule 1 05/30/20 25 025 Discontinued(R eorder (will not trigger notification to Pharmacy)) Hospital, Clinic, or Other Facility Administered Medication Ordered Dose Route Frequency Start Date End Date Status nitroglycerin (Nitrostat) SL tablet 0.4 mgIndications:Chest pain, unspecified type 0.4 mg SL Every 5 min PRN 08/07/2025 Active aspirin chewable tablet 324 mgIndications:Chest pain, unspecified type 324 mg PO Once 08/07/2025 08/07/2025 Ended Active Problems Problem Noted Date Diagnosed Date Chronic pain of left knee 03/16/2024 Assessment & Plan (07/31/2025 3:56 PM EDT): 12/12/23 knee X-ray showed Moderate joint effusion. 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 Assessment & Plan (06/21/2024 11:09 AM EDT): 12/12/23 knee X-ray showed Moderate joint effusion. Mild narrowing of the lateral compartment Assessment & Plan (03/16/2024 12:22 PM EDT): 12/12/23 knee X-ray showed Moderate joint effusion. Mild narrowing of the lateral compartment Chronic back pain 03/13/2024 Assessment & Plan (07/31/2025 3:57 PM EDT): - patient has tried PT - continue judicious use of APAP - patient has a cane and states he has a difficulty walking. He is going to apply for disability placard. 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 Assessment & Plan (03/13/2024 12:38 PM EDT): [...] (12/12/2023 3:50 PM EST): - [place] [facility] [place] - most recent renal US in Jun 2023 - continue surveillance Non-rheumatic aortic stenosis 06/03/2023 Assessment & Plan (07/31/2025 3:41 PM EDT): - most recent transthoracic echocardiogram on 09/06/24 showed mild to moderate aortic stenosis, and possible bicuspid aortic valve - continue following up with quirk sander Assessment & Plan (06/03/2025 8:19 AM EDT): - most recent transthoracic echocardiogram on 09/06/24 showed mild to moderate aortic stenosis, and possible bicuspid aortic valve - continue following up with quirk sander Assessment & Plan (12/12/2023 3:47 PM EST): - most recent transthoracic echocardiogram on 09/05/23 showing mild-moderate aortic stenosis and trivial aortic regurgitation - continue following management recommendations by quirk sander Benign prostatic hyperplasia 03/28/2023 Overview (03/28/2023): -previously following with Urologist, last seen in 2018&2019 -will check PSA -will refer him back to Urologist for further evaluation Assessment & Plan (07/31/2025 3:52 PM EDT): - followed by [facility] [place], last seen in Jul 2024 - PSA has been normal level - continue terazosin and finasteride Assessment & Plan (06/03/2025 8:25 AM EDT): - followed by [facility] [place], last seen in Jul 2024 - PSA has been normal level - continue terazosin and finasteride Assessment & Plan (06/21/2024 11:09 AM EDT): - followed by [facility] [place], last seen in Nov 2023 - PSA has been normal level - continue tamsulosin Assessment & Plan (12/12/2023 3:49 PM EST): - followed by [facility], last seen in Nov 2023 - PSA has been normal level - continue tamsulosin Assessment & Plan (07/15/2023 6:41 AM EDT): - previously followed by urologist, last seen in 2017 - recently seen again by [facility] in May 2023 - CT in [...] EDT): -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 -Due to Coumadin use, Rifampin was contraindicated. Pt was started on Isoniazid, but the treatment had to be interrupted multiple times because of elevated LFT. Pt was drinking alcohol excessively during the treatment. -His case was presented to [facility], and pt had a direct observation therapy. 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 -Due to Coumadin use, Rifampin was contraindicated. Pt was started on Isoniazid, but the treatment had to be interrupted multiple times because of elevated LFT. Pt was drinking alcohol excessively during the treatment. -His case was presented to [facility], and pt had a direct observation therapy. -He finally completed 12 weeks of 900mg INH/900mg Rifapentine/ B6 50mg on 02/14/2019 History of syphilis 11/19/2022 History of shingles 11/19/2022 Major depression 11/09/2022 Assessment & Plan (07/31/2025 10:54 AM EDT): - [facility] provider : [facility] - suicidal ideation - Lost his in 2014 due to pancreatic cancer, and his psychosocial health worsened - Continue buspirone and mirtazapine as prescribed by psychiatarist History of alcohol use disorder 11/09/2022 Assessment & Plan (11/19/2022 5:42 PM EST): - graduated from AUD clinic - continue naltrexone - pt is aware of recovery support resources at [facility] Alcohol use disorder, modera te, in early remission (CMS/HCC) 11/09/2022 Assessment & Plan (07/31/2025 10:53 AM EDT): - previously followed by Dr. Mckeon[facility] AUD clinic - reconnected with AUD clinic and now followed by Dr. Julien - long-term maintenance stage, with occasional alcohol intake - continue naltrexone Assessment & Plan (05/31/2025 12:21 AM EDT): [...] continue naltrexone Erythrocytosis 11/09/2022 Assessment & Plan (07/31/2025 3:53 PM EDT): - followed by battery hand, last seen in Jun 2025 - normal erythropoietin level - all other work-up has been normal - safely discharged to primary care for periodic monitoring Assessment & Plan (06/03/2025 8:25 AM EDT): - followed by battery hand, last seen in Jul 2024 - normal erythropoietin level - all other work-up has been normal Assessment & Plan (06/21/2024 11:09 AM EDT): - followed by battery hand, last seen in Jul 2023 - normal erythropoietin level - all other work-up has been normal Assessment & Plan (12/12/2023 3:53 PM EST): - followed by battery hand, last seen in Jul 2023 - normal erythropoietin level - all other work-up has been normal Assessment & Plan (07/15/2023 6:41 AM EDT): - evaluated by battery hand, last seen in January 2023 - normal erythropoietin level - all other work-up has been normal - US was ordered by battery hand; advised to complete evaluation Assessment & Plan (11/19/2022 5:28 PM EST): - evaluated by battery hand, last seen on 07/13/22 - normal erythropoietin level - all other work-up has been normal - most recent hematocrit 45 on 09/16/22 - US was ordered by battery hand; advised to complete evaluation nursing home (current) use of anticoagulants 2021 Assessment & Plan (05/31/2025 12:19 AM EDT): - indication: recurrent / chronic DVT, question of hypercoagulable disorder (elevated homocysteine) -managed by [facility] -Most recent INR-->3.4 on 03/18/23 [...] of hypercoagulable disorder (elevated homocysteine) -managed by [facility] -Most recent INR-->3.4 on 03/18/23 [...] of hypercoagulable disorder (elevated homocysteine) -managed by [facility] -Most recent INR-->3.4 on 03/18/23 [...] aortic valve disease 11/30/2018 Assessment & Plan (07/31/2025 3:42 PM EDT): -Most recent transthoracic echocardiogram on 09/06/24 showed mild to moderate aortic stenosis, and possible bicuspid aortic valve -Continue working on risk factor management -Emphasized the importance of keeping appt with quirk sander; pt verbalized understanding Assessment & Plan (06/21/2024 11:09 AM EDT): -Most recent TTE on 09/05/23 Normal EF, mild-mod aortic stenosis and trivial aortic regurgitation with possible bicuspid aortic valve. Ascending aorta at 42 mm -Continue working on risk factor management -Emphasized the importance of keeping appt with quirk sander; pt verbalized understanding Assessment & Plan (12/12/2023 3:07 PM EST): -Most recent TTE on 09/05/23 Normal EF, mild-mod aortic stenosis and trivial aortic regurgitation with possible bicuspid aortic valve. Ascending aorta at 42 mm -Continue working on risk factor management -Emphasized the importance of keeping appt with quirk sander; pt verbalized understanding Assessment & Plan (07/15/2023 6:32 AM EDT): - Echo on 03/31/22 EF 60-65% showed severely calcified aortic valve, stenosis and mild regurgitation (in HFCCA). - Emphasized the importance of keeping appt with quirk sander; pt verbalized understanding Assessment & Plan (11/09/2022 11:55 AM EST): - ECHO on 03/31/22 EF 60-65% showed severely calcified aortic valve, stenosis and mild regurgitation. -Pt was discharged from previous [facility] and will send to new [facility]. Alcohol use 11/16/2018 Stage 3 chronic kidney disease (CMS/HCC) 016 Assessment & Plan (07/31/2025 3:52 PM EDT): -[facility] [place], [facility] Last seen in Nov 2024 -09/10/16 Renal US wnl, no renal artery stenosis. -Hx elevated K with ACEI -Avoid NSAIDs / nephrotoxic drugs. -Use renal dosing. -Emphasized the importance of keeping appointment -Still waiting for microalbumin lab Assessment & Plan (06/03/2025 8:24 AM EDT): -Patient has missed several appointments with manager quality compliance, upcoming appt -09/10/16 Renal US wnl, no renal artery stenosis. -Hx elevated K with ACEI -Avoid NSAIDs / nephrotoxic drugs. -Use renal dosing. -Emphasized the importance of keeping appt Assessment & Plan (06/21/2024 11:09 AM EDT): -Referred back to manager quality compliance after last visit in Jul 2023 -Patient had an appointment in [facility], which was rescheduled for 01/09/24 -09/10/16 Renal US wnl, no renal artery stenosis. -Hx elevated K with ACEI -Avoid NSAIDs / nephrotoxic drugs. -Use renal dosing. -Emphasized the importance of keeping appt Assessment & Plan (12/12/2023 3:52 PM EST): -Referred back to manager quality compliance after last visit in Jul 2023 -Patient had an appointment in [facility], which was rescheduled for 01/09/24 -09/10/16 Renal US wnl, no renal artery stenosis. -Hx elevated K with ACEI -Avoid NSAIDs / nephrotoxic drugs. -Use renal dosing. -Emphasized the importance of keeping appt Assessment & Plan (07/15/2023 6:39 AM EDT): -Followed by manager quality compliance, last seen ? -Mildly elevated K. Monitor closely with ACEI. -09/10/16 Renal US wnl, no renal artery stenosis. -Avoid NSAIDs / nephrotoxic drugs. -Use renal dosing. -Emphasized the importance of keeping appt Assessment & Plan (03/24/2023 12:38 PM EDT): -Followed by manager quality compliance, last seen -Currently on lisinopril 5 mg daily. -Mildly elevated K. Monitor closely with ACEI. -Most recent INR-->3.0 on 11/09/22 -09/10/16 Renal US wnl, no renal artery stenosis. -Avoid NSAIDs / nephrotoxic drugs. -Use renal dosing. Assessment & Plan (11/19/2022 6:02 PM EST): -Followed by manager quality compliance, last seen -Currently on lisinopril 5 mg daily. -Mildly elevated K. Monitor closely with ACEI. -Most recent INR-->3.0 on 11/09/22 -09/10/16 Renal US wnl, no renal artery stenosis. -Avoid NSAIDs / nephrotoxic drugs. -Use renal dosing. Hypertension 09/02/2015 Assessment & Plan (07/31/2025 10:47 AM EDT): -Goal BP < 130/80 per ACC/AHA guideline -BP not at goal. Fluctuating BP. Normal BP at the cardiology office -Comanaged with quirk sander, pharmD, and manager quality compliance -Continue working on life style modifications. -Continue amlodipine 10 mg daily -Continue hydralazine 50 mg tid -(Continue terazosin 5 mg daily for BPH with LUTS) --Treatment history: -Lisinopril was decreased to 2.5 mg daily after AAYUSH with hyperkalemia secondary to renal hypoperfusion in a setting of CKD in summer 2016. Completely discontinued by manager quality compliance -Most recent echo: 09/06/24 EF 60-65%. Mild - mod . Thoracic aortic aneurysm 4.2 cm -Consider 24-hour BP monitoring with manager quality compliance Assessment & Plan (06/03/2025 8:21 AM EDT): -Goal BP < 130/80 per ACC/AHA guideline -BP at goal -Comanaged with quirk sander, pharmD, and manager quality compliance -Continue working on life style modifications. -Continue amlodipine 10 mg daily -Continue hydralazine 50 mg tid -(Continue terazosin 5 mg daily for BPH with LUTS) --Treatment history: -Lisinopril was decreased to 2.5 mg daily after AAYUSH with hyperkalemia secondary to renal hypoperfusion in a setting of CKD in summer 2016. Completely discontinued by manager quality compliance -Most recent echo: 09/06/24 EF 60-65%. Mild - mod . Thoracic aortic aneurysm 4.2 cm Assessment & Plan (06/21/2024 11:09 AM EDT): -Goal BP < 140/90 per JNC-8, < 130/80 per ACC/AHA guideline -BP not at goal , ?adherence to medication -Comanaged with quirk sander, pharmD, and manager quality compliance -Continue working on life style modifications. -Continue amlodipine 10 mg daily -Continue hydralazine 50 mg tid --Treatment history: -Lisinopril was decreased to 2.5 mg daily after AAYUSH with hyperkalemia secondary to renal hypoperfusion in a setting of CKD in summer 2016. Completely discontinued by manager quality compliance -Most recent echo: 09/05/23 EF 60-65%. Mild . Thoracic aortic aneurysm 4.2 cm - Follow up in 3 mo or sooner if any problem arises Assessment & Plan (03/13/2024 10:47 AM EDT): -Goal BP < 140/90 per JNC-8, < 130/80 per ACC/AHA guideline -BP not at goal , ?adherence to medication -Comanaged with quirk sander, pharmD, and manager quality compliance -Continue working on life style modifications. -Continue amlodipine 10 mg daily -Continue hydralazine 50 mg tid --Treatment history: -Lisinopril was decreased to 2.5 mg daily after AAYUSH with hyperkalemia secondary to renal hypoperfusion in a setting of CKD in summer 2016. Completely discontinued by manager quality compliance -Most recent echo: 09/05/23 EF 60-65%. Mild . Thoracic aortic aneurysm 4.2 cm - Follow up in 3 mo or sooner if any problem arises Assessment & Plan (12/12/2023 3:05 PM EST): -Goal BP < 140/90 per JNC-8, < 130/80 per ACC/AHA guideline -BP not at goal , ?adherence to medication -Comanaged with quirk sander, pharmD, and manager quality compliance -Continue working on life style modifications. -Continue amlodipine 10 mg daily -Continue hydralazine 50 mg tid --Treatment history: -Lisinopril was decreased to 2.5 mg daily after AAYUSH with hyperkalemia secondary to renal hypoperfusion in a setting of CKD in summer 2016. Completely discontinued by manager quality compliance -Most recent echo: 09/05/23 EF 60-65%. Mild . Thoracic aortic aneurysm 4.2 cm - Follow up in 3 mo or sooner if any problem arises Assessment & Plan (07/15/2023 6:34 AM EDT): -Goal BP < 140/90 per JNC-8, < 130/80 per ACC/AHA guideline -BP not at goal , ?adherence to medication -Comanaged with quirk sander, pharmD, and manager quality compliance -Continue working on life style modifications. -Continue amlodipine 10 mg daily -Continue hydralazine 25 mg tid --Treatment history: -Lisinopril was decreased to 2.5 mg daily after AAYUSH with hyperkalemia secondary to renal hypoperfusion in a setting of CKD in summer 2016. Completely discontinued by manager quality compliance -Most recent echo: 03/31/22 EF 60-65%. Mild [...] We need to confirm this dosing with quirk sander. --Treatment history: -Lisinopril was decreased to 2.5 [...] We need to confirm this dosing with quirk sander. --Treatment history: -Lisinopril was decreased to 2.5 mg daily after AAYUSH with hyperkalemia secondary to renal hypoperfusion in a setting of CKD in summer 2016. -Most recent echo: 03/31/22 EF 60-65%. Mild . Thoracic aortic aneurysm 4.2 cm -Monitor K+ closely with Lisinopril -f/u in 2 months Ascending aortic aneurysm 12/19/2014 Assessment & Plan (07/31/2025 10:50 AM EDT): -Most recent echo on 08/27/24 ascending aorta 42 mm, stable -Echo on 09/05/23 ascending aorta 42 mm, stable -Echo on 03/31/22 thoracic aorta 4.2 cm -Echo in Jun 2021 thoracic aorta 4.2 cm -Echo on 02/27/19 thoracic aorta 4.1 cm -Echo on 03/01/18 Thoracic aorta 4.0 cm -Continue working on risk factor management Assessment & Plan (06/03/2025 8:23 AM EDT): [...] factor management Dyslipidemia 08/05/2014 Assessment & Plan (07/31/2025 3:43 PM EDT): - Last Lipid Profile: 04/15/25 - Current medications: Atorvastatin 10 mg at bedtime, will increase to 20 mg qhs - Continue working on lifestyle modifications Assessment & Plan (06/03/2025 8:22 AM EDT): [...] EDT): Hx of elevated homocysteine. Evaluated by battery hand for hypercoagulable disorder. Evaluation is incomplete because he was on Coumadin. He was recommended indefinite warfarin treatment. Assessment & Plan (03/28/2023 1:04 PM EDT): Hx of elevated homocysteine. Evaluated by battery hand for hypercoagulable disorder. Evaluation is incomplete because he was on Coumadin. He was recommended indefinite warfarin treatment. Vitamin D deficiency 11/24/2012 Deep venous thrombosis of lower extremity 2011 Assessment & Plan (07/31/2025 10:52 AM EDT): -Recurrent and chronic DVT, mostly left side -Chronic left common femoral vein -Continue warfarin -INR monitoring and warfarin dose adjustment are managed by [facility] Green team nurses -Continue following with [facility] Green team nurse for anticoagulation management Assessment & Plan (05/31/2025 12:18 AM EDT): -Recurrent and chronic DVT, mostly left side -Chronic left common femoral vein -Continue warfarin -INR monitoring and warfarin dose adjustment are managed by [facility] Green team nurses -Most recent INR 2.3 on 06/18/23 -Continue following with [facility] Green team nurse for anticoagulation management Assessment & Plan (06/21/2024 11:08 AM EDT): -Recurrent and chronic DVT, mostly left side -Chronic left common femoral vein -Continue warfarin -INR monitoring and warfarin dose adjustment are managed by [facility] Green team nurses -Most recent INR 2.3 on 06/18/23 -Continue following with [facility] Green team nurse for anticoagulation management Assessment & Plan (03/13/2024 10:46 AM EDT): -Recurrent and chronic DVT, mostly left side -Chronic left common femoral vein -Continue warfarin -INR monitoring and warfarin dose adjustment are managed by [facility] Green team nurses -Most recent INR 2.3 on 06/18/23 -Continue following with [facility] team nurse for anticoagulation management Assessment & Plan (12/12/2023 3:04 PM EST): -Recurrent and chronic DVT, mostly left side -Chronic left common femoral vein -Continue warfarin -INR monitoring and warfarin dose adjustment are managed by [facility] Green team nurses -Most recent INR 2.3 on 06/18/23 -Continue following with [facility] Green team nurse for anticoagulation management Assessment & Plan (07/15/2023 6:37 AM EDT): -Recurrent and chronic DVT, mostly left side -Chronic left common femoral vein -Continue warfarin -INR monitoring and warfarin dose adjustment are managed by [facility] Green team nurses -Most recent INR 2.3 on 06/18/23 -Continue following with [facility] Green team nurse for anticoagulation management Assessment & Plan (03/24/2023 12:37 PM EDT): -Recurrent and chronic DVT, mostly left side -Chronic left common femoral vein -Continue warfarin -INR monitoring and warfarin dose adjustment are managed by [facility] Green team nurses -Most recent INR-->3.0 on 11/09/22 -Continue following with [facility] Green team nurse for anticoagulation management Assessment & Plan (11/19/2022 6:00 PM EST): -Recurrent and chronic DVT, mostly left side -Chronic left common femoral vein -Continue warfarin -INR monitoring and warfarin dose adjustment are managed by [facility] Green team nurses -Most recent INR-->3.0 on 11/09/22 -Continue following with [facility] team nurse for anticoagulation management Seizure disorder ([facility]) 03/23/2012 Assessment & Plan (07/31/2025 10:56 AM EDT): - Hx seizure many years [...] management for other conditions Assessment & Plan (05/31/2025 12:21 AM EDT): [...] Peripheral vascular disease 03/13/2012 Assessment & Plan (07/31/2025 3:40 PM EDT): - 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 - skin discoloration and inflammation are concerning for worsening venous stasis dermatitis - upcoming appointment with vascular specialist Assessment & Plan (06/03/2025 8:18 AM EDT): [...] Encounters Date Type Department Care Team Description 08/07/2025 9:40 AM EDT Office Visit [facility] [address] [place] [id number] Deya Khan DO Chest pain, unspecified type (Primary Dx) 08/07/2025 Orders Only [facility] External Provider, [facility] 08/07/2025 Travel 08/06/2025 Orders Only [address] [address] Veronica Gallardo MD Hypertension, unspecified type (Primary Dx) 08/05/[address] [address] Veronica Gallardo MD Durable Medical Equipment (DME Request: handheld shower / shower extension) 08/05/[address] [address] Veronica Gallardo MD 08/05/[address] [address] Veronica Gallardo MD Back pain with left-sided radiculopathy 08/02/[address] [address] Veronica Gallardo MD Paperwork/Forms 07/31/2025 Telephone [facility] [place] [address] Earline Quinn, RN Care Coordination 07/30/2025 9:15 AM EDT Office Visit [facility] [place] [address] Veronica Gallardo MD Hypertension, unspecified type (Primary Dx); Stage 3 chronic kidney disease, unspecified whether stage 3a or 3b CKD (CMS/HCC) ([facility]); Alcohol use; Routine screening for STI (sexually transmitted infection); Encounter for vaccination; Encounter for immunization; Aneurysm of ascending aorta without rupture (CMS/HCC); Chronic deep vein thrombosis (DVT) of femoral vein of left lower extremity ([facility]); Alcohol use disorder, moderate, in early remission (CMS/HCC) ([facility]); Current severe episode of major depressive disorder without psychotic features, unspecified whether recurrent (CMS/HCC) ([facility]); Depressive disorder; Chronic pain of left knee; Chronic back pain, unspecified back location, unspecified back pain laterality; Seizure disorder (CMS/HCC) ([facility]); Peripheral vascular disease (CMS/HCC); Non-rheumatic aortic stenosis; Mitral and aortic valve disease; Dyslipidemia; nursing home (current) use of anticoagulants; Benign prostatic hyperplasia, unspecified whether lower urinary tract symptoms present; Erythrocytosis 07/30/2025 Travel 07/29/[address] [address] Veronica Gallardo MD Durable Medical Equipment 07/27/2025 Refill [facility] [place] [address] Veronica Gallardo MD Back pain with left-sided radiculopathy 07/26/2025 Telephone [facility] [place] [address] Veronica Gallardo MD fyi 07/23/2025 11:00 AM EDT Clinical Support [facility] [place] [address] Earline Quinn RN superintendent [employer] (current) use of anticoagulants 07/23/2025 Travel 07/18/2025 Orders Only GENERIC EXTERNAL DATA DEPARTMENT Provider, Generic External Data 07/15/2025 Orders Only GENERIC EXTERNAL DATA DEPARTMENT Provider, Generic External Data 06/26/2025 Refill [facility] [place] [address] Veronica Gallardo MD Hypertension, unspecified type; Intercostal pain 06/21/2025 10:30 AM EDT Clinical Support [facility] [place] [address] Earline Quinn, RN nursing home (current) use of anticoagulants 06/21/2025 Travel 05/30/2025 9:00 AM EDT Office Visit [facility] [place] [address] Veronica Gallardo MD Hypertension, unspecified type (Primary [...] femoral vein of left lower extremity (CMS/HCC); nursing home (current) use of anticoagulants; Peripheral vascular disease (CMS/HCC) 05/30/2025 Travel 05/30/2025 Refill [facility] [place] [address] Veronica Gallardo MD Back pain with left-sided radiculopathy 05/29/2025 Telephone [facility] [place] [address] Veronica Gallardo MD chart prep 05/24/2025 10:00 AM EDT Clinical Support [facility] [place] [address] Earline Quinn, RN nursing home (current) use of anticoagulants [...] preservative free 08/06/2014 Pfizer Covid-19 Vaccine 12+ 07/30/2025,,03/13/2024 Pneumococcal Conjugate PCV 13 12/17/2019 Pneumococcal Polysaccharide [...] Never Tobacco Cessation:Counseling Given: Not Answered Alcohol Use Standard Drinks/Week Comments Never 0 [...] Mass Index 23.55 08/07/2025 9:06 AM EDT Plan of Treatment Upcoming Encounters Date Type Department Care Team (Latest Contact Info) Description 08/14/2025 10:00 AM EST Medication Management [address] [address] Brien Vargas, PharmD [facility] [place] [address] 08/22/2025 1:00 PM EST Anticoagulation - Warfarin Visit [address] [address] 09/02/2025 11:00 AM EST Office Visit [address] [address] Veronica Gallardo MD [address] [place] [address] 10/14/2025 10:00 AM EST Medication Management [address] [address] Brien Vargas, [place] [address] Health Maintenance Due Date Last Done Comments CT Colonography 1955 Colonoscopy 1955 Colorectal Cancer Screening 1955 FIT DNA/Cologuard 1955 FIT 1955 FOBT 1955 Sigmoidoscopy 1955 Alcohol/Substance Use Screening 05/30/2026 05/30/2025 Depression Screening 05/30/2026 05/30/2025, 05/30/20 25 SDOH Screening 05/30/2026 05/30/2025 Tobacco Screening 08/07/2026 08/07/2025 DTaP/Tdap/Td Vaccines (3 - Td or Tdap) [...] 10:00 AM EDT) No Brien Vargas, Efrain Procedures Procedure Name Priority Date/Time Associated Diagnosis Comments ECG 12-LEAD Routine 08/07/2025 1:19 PM EDT Chest pain, unspecified type HIGH SENSITIVITY TROPONIN I Routine 08/07/2025 1:05 PM EDT XR CHEST 2 VIEWS Routine 08/07/2025 11:2 9 AM EDT POCT INR Routine 07/23/2025 10:44 AM EDT superintendent [employer] (current) use of anticoagulants HIGH SENSITIVITY TROPONIN I Routine 07/18/2025 4:42 PM EDT XR CHEST 2 VIEWS Routine 07/18/2025 2:50 PM EDT PSA, TOTAL Routine 07/15/2025 10:20 AM EDT POCT INR Routine 06/21/2025 10:48 AM EDT nursing home (current) use of anticoagulants POCT INR Routine 05/24/2025 9:37 AM EDT superintendent [employer] (current) use of anticoagulants HIGH SENSITIVITY TROPONIN [...] Recently Relevant to Health Maintenance Results * ECG 12 lead (08/07/2025 1:19 PM EDT) Deya Barron DO - 08/07/2025 1:19 PM EDT NSR @ 62 bmp, nml axis/intervals, no Q waves, no ST depression/elevation, TWF aVL Deya Khan DO ECG ORDERABLES Final Result * High Sensitivity Troponin I (08/07/2025 1:05 PM EDT) Only the most recent of3 resultswithin the time period is included. TROPONIN I HIGH SENSITIVITY 21.5 <3.5 - 35.0 ng/L [facility] Comment:The Santana high sens itivity Troponin-I results should beused in conjunction with other diagnostic information suchas ECG, clinical observations and information, and patientsymptoms to aid in the diagnosis of MO. 08/07/2025 1:05 PM EDT 08/07/2025 1:08 PM EDT us Generic External Data Provider LAB BLOOD ORDERAB LES Final Result Performing Organization Address City/State/[facility] Co de Phone Number [facility] [address] [place] [phone] * XR Chest 2 Views (08/07/2025 11:29 AM EDT) Only the most recent of3 resultswithin the time period is included. Anatomical Region Laterality Modality Chest Radiographic Svitlana ging 08/07/2025 11:2 9 AM EDT Narrative 08/07/2025 11:39 AM EDT [address] [address] XRay Report Signed Patient: Chriss Munoz MR#: [id number] : 1955 Acct:[id number] Age/Sex: 70 / M ADM Date: 08/07/25 Loc: HO.ED Attending Dr: Ordering Physician: Jc Lehman MD Date of Service: 08/07/25 Procedure(s): XR chest 2V Accession Number(s): [id number] cc: Jc Lehman MD; Veronica Gallardo MD [...] 08/07/25 1136 DD/ 1129 TD/TT: 08/07/25 1134 Case Filler: Procedure Note Donotuseinterpreter, Image - 08/07/[address] [address] XRay Report Signed Patient: Lenard Munoz#: [id number] : 1955cct:[id number] Age/Sex: 70 / MADM Date: 08/07/25 Loc: HO.ED Attending Dr: Ordering Physician: Jc Lehman MD Date of Service: 08/07/25 Procedure(s): XR chest 2V Accession Number(s): [id number] cc: Jc Lehman MD; Veronica Gallardo MD [...] Edwin Ventura MD 08/07/2025 11:36 AM EDT Dictated By: Edwin Ventura MD Signed By: <Electronically signed by Edwin Ventura MD in OV> 08/07/25 1136 DD/ 1129 TD/TT: 08/07/25 1134 Case Filler: [facility] External Provider IMG XR PROCEDURES Final Result * POCT INR manually resulted (07/23/2025 10:44 AM EDT) Only the most recent of3 resultswithin the time period is included. Protime INR 2.1 2 - 3 Blood Capillary blood specimen / Unknown 07/23/2025 10:44 AM EDT us Veronica Gallardo MD POINT OF CARE TEST ENTER/EDIT OR DERABLES Final Result * PSA,Total (07/15/2025 10:20 AM EDT) Prostate Specific Antigen 2.82 <0.05 - 4.0 ng/mL [facility] Comment:PSA methodology: Shanika Beck i ChemiluminescentMicroparticle Immunoassay (CMIA) 07/15/2025 10:2 0 AM EDT 07/15/2025 10:20 AM EDT Generic External Data Provider LAB BLOOD ORDERAB LES Final Result Performing Organization Address City/State/[facility] Co de Phone Number [facility] [address] [place] [phone] * Lipid Panel with Reflex to Direct LDL (04/15/2025 9:10 AM EDT) Triglycerides 107 <150 mg/dL [facility] Comment:Desirable Triglyceri de: less than 150 mg/dLBorderline High Triglyceride 150-199 mg/dLHigh Triglyceride: 200-499 mg/dLVery High Triglyceride: greater than or equal to 5OO mg/dL Cholesterol 168 <200 mg/dL [facility] Comment:Desirable Cholestero l: less than 200 mg/dLBorderline High Cholesterol: 200-239 mg/dLHigh Cholesterol: greater than 239 mg/dL LDL Cholesterol Calculated 91 <100 mg/dL [facility] Comment:Desirable LDL: less than 100 mg/dLNear Optimal/Above Optimal LDL: 110- 129 mg/dLBorderline High LDL: 130-159 mg/dLHigh LDL: 160-189 mg/dLVery High LDL: greater than or equal to 190 mg/dL HDL Cholesterol 56 >40 mg/dL [facility] Comment:Desirable HDL: great er than 40 mg/dL Note: This HDL assay may give artificially low results in patients with liver disease. Blood 04/15/2025 9:10 AM EDT 04/15/2025 11:17 AM EDT Veronica Gallardo MD LAB BLOOD ORDERABLES Final Resul t Performing Organization Address City/[facility]/ZIP Co de Phone Number [facility] [address] [place] [phone] * Hepatitis C Antibody with Reflex to HCV, RNA, Quantitative, Real-Time PCR (04/15/2025 9:10 AM EDT) Hepatitis C Antibody Nonreactive Nonreactive [facility] Comment:Antibodies to HCV no t detected; does not exclude early acuteHCV infection. Venous blood specimen / Unknown 04/15/2025 9:10 AM EDT 04/15/2025 11:17 AM EDT Veronica Gallardo MD LAB BLOOD ORDERABLES Final Resul t Performing Organization Address [facility] Co de Phone Number [facility] [address] [place] [phone] from Last 3 Months or Most Recently Relevant to Health Maintenance [facility]O D-SNP[facility] JOSE TAPIA [id number] Care Teams Accounting Representative Relationship Specialty Start Date End Date Veronica Gallardo MD [address] [place] [address] PCP - General Family Medicine 08/09/12 Brien Vargas, PharmD [address] [place] [address] Pharmacist Internal Medicine 11/30/22 Earline Quinn, RN [address] [place] [phone] Registered Nurse Family Medicine 07/29/25
--- OUTSIDE RECORDS SUMMARY | 2025-08-07 14:16 | XMS_ITS | Encounter Summary ---
Author Organization [employer] [facility] Address [address] [facility] [address] [place] [address] Care Team Providers Care Dog Raiser Name Role Phone Veronica Gallardo MD Primary Care Provider Brien Vargas PharmD Unavailable [phone] Earline Quinn RN Unavailable [phone] Encounter Details Date Type Department Care Team (Late st Contact Info) Description 09/09/2022 Orders Only [facility] [address] [place] [address] [phone] Veronica Gallardo MD [address] [place] [address] [phone] Social History Tobacco Use Types Packs/Day Years [...] Description 08/14/2025 10:00 AM EST Medication Management [facility] [address] [place] [address] [phone] Brien Vargas, PharmD [address] [place] [phone] 08/22/2025 1:00 PM EST Anticoagulation - Warfarin Visit [address] [phone] 09/02/2025 11:00 AM EST Office Visit [address] [address] Veronica Gallardo MD [address] [place] [address] 10/14/2025 10:00 AM EST Medication Management [address] [address] Brien Vargas, PharmD [address] [place] [phone] documented as of this encounter Visit Diagnoses Not on filedocumented in this encounter Care Teams Dog Raiser Relationship Specialty Start Date End Date Veronica Gallardo MD [address] [place] [address] [phone] PCP - General Family Medicine 08/09/12 Brien Vargas, PharmD [address] [place] [address] [phone] Pharmacist Internal Medicine 11/30/22 Earline Quinn, RENNY [address] [place] [address] [phone] Registered Nurse Family Medicine 07/29/25 documented as of this encounter
--- OUTSIDE RECORDS SUMMARY | 2025-08-07 14:16 | XMS_ITS | Encounter Summary ---
Author Organization [employer] Address [address] [place] [address] Care Team Providers Care Thermal Cutter Hand Name Role Phone Veronica Gallardo MD Primary Care Provider [phone] Brien Vargas PharmD Unavailable [phone] Earline Quinn RN Unavailable [phone] Encounter Details Date Type Department Care Team (Late st Contact Info) Description 04/25/2024 Orders Only [facility] [address] [place], [place] [phone] Veronica Gallardo MD [address] [place], [place] [phone] Hypertension, unspecified type Social History Tobacco Use [...] Description 08/14/2025 10:00 AM EST Medication Management [address] [address] Brien Vargas, PharmD [address] [place] [address] 08/22/2025 1:00 PM EST Anticoagulation - Warfarin Visit [address] [address] 09/02/2025 11:00 AM EST Office Visit [address] [address] Veronica Gallardo MD [address] [place] [address] 10/14/2025 10:00 AM EST Medication Management [address] [address] Brien Vargas, PharmD [address] [place] [address] documented as of this encounter Goals Goal [...] AM EDT Narrative 05/03/2024 10:18 AM EDT [address] [address] XRay Report Signed Patient: Chriss Munoz MR#: [id number] : 1955 Acct:[id number] Age/Sex: 68 / M ADM Date: 05/03/24 Loc: HO.ED Attending Dr: Ordering Physician: Flo Fleming MD Date of Service: 05/03/24 Procedure(s): XR chest 1V Accession Number(s): [id number] cc: Flo Fleming MD; Veronica Gallardo MD [...] in OV> 05/03/24 1015 DD/ 0930 TD/TT: University Internship: PD Procedure Note Donotuseinterpreter, Image - 05/03/[address] [address] XRay Report Signed Patient: Kristina MunozR#: [id number] : 1955cct:[id number] Age/Sex: 68 / MADM Date: 05/03/24 Loc: HO.ED Attending Dr: Ordering Physician: Flo Fleming MD Date of Service: 05/03/24 Procedure(s): XR chest 1V Accession Number(s): [id number] cc: Flo Fleming MD; Veronica Gallardo MD [...] in OV> 05/03/24 1015 DD/ 0930 TD/TT: University Internship: PD [facility] External Provider IMG XR PROCEDURES Final Result documented in this encounter Visit Diagnoses Diagnosis Hypertension, unspecified type documented in this encounter Additional Health Concerns Assessment Noted Time PHQ-9 Depression Total Score: 0 03/24/20 11:18 AM EDT documented as of this encounter Care Teams Thermal Cutter Hand Relationship Specialty Start Date End Date Veronica Gallardo MD [address] [place] [phone] PCP - General Family Medicine 08/09/12 Brien Vargas PharmD [address] [place] [address] Pharmacist Internal Medicine 11/30/22 Earline Quinn, RENNY [address] [place] [address] Registered Nurse Family Medicine 07/29/25 documented as of this encounter
[2025-08-07 16:04] LABS: Troponin-I High Sensitivity 22.7 ng/L (<3.5-35.0)
[2025-08-07 16:39] LABS: INTERNATIONAL NORM RATIO 3.5 (0.9-1.1); Prothrombin Time 40.7 SEC (10.9-12.4)
--- NOTE | 2025-08-07 16:50 | PM.IMHP ---
History of Present Illness Date of Service: 08/07/25 Attending physician on admission: Keon Escalona Chief Complaint: chest pain 70 years old male referred to us by [facility] because chest pain. Patient says he has episode of chest pain lasting few minutes this morning around 07:00 his blood pressure was elevated off of the clinic therefore he was referred to ed.he says has chest pain on /off from almost1 year, could not able to describe well-but says dull pain ,stabbing sometime ,also sometimes radiate to right side chest ,no pleurtic or reproducable. he says his chest pain is improing since he came , he relates his chest pain to flactuating bp. as per ed documentation; He has a history of hypertension history of hyper lipidemia. He has a history of mild to moderate , he has a history of a mild dilated aneurysmally 4.2 cm by the last echo. He has a normal EF. cbc /bmp seems similar,ekg nsr ,mild chastity Ed physician d/w case with cardiology: patient does have history of aortic stenosis and he has a an ascending aneurysm it is reasonable to admit him we will schedule an echo, unfortunately we can not do a CTA because he as CKD. Review of Systems Review of Systems: Yes all other systems are reviewed and are negative [facility] Medical History Ascending aortic aneurysm Colon cancer screening Hemorrhoid Aortic aneurysm GERD (gastroesophageal reflux disease) Chronic anticoagulation Alcohol abuse Mood disorder Mood disorder due to a general medical condition Peripheral vascular disease DVT (deep venous thrombosis) Hyperhomocysteinemia CKD (chronic kidney disease) Depression Seizure Family History Paternal Grandmother Cancer Maternal Grandfather Cancer Paternal Aunt Cancer Surgical History Hx of colonoscopy Hx of hernia repair Social History Household Members: None Housing: Apartment Are you a primary housekeeper caregiver to a significant other at home: No Do you presently have visiting nurse or other home services: No Unable to assess alcohol history related to: Unknown Alcohol intake: current Alcohol intake frequency: does not drink Alcohol type: beer Patient Tobacco Use Status: Never used Tobacco Smoked in Last 30 Days: No Use of substances other than those prescribed or required for medical reasons: Unknown Currently Displaying Signs/Symptoms of Drug Intoxication Withdrawal: No Advance Directives: No Advance Directives Information Provided: Yes Advance Directives Date on File: 10/01/20 Nutrition Risks: No Nutritional Risk service: No Current occupational status: disabled Meds Allergies Allergy/AdvReac Type Severity Reaction Status Date / Time ibuprofen (From Motrin) Allergy Intermediate Unknown Verified 08/07/25 10:49 acetaminophen (From Percocet) Allergy Unknown Verified 08/07/25 10:49 oxycodone Allergy Unknown Verified 08/07/25 10:49 Home Medications ?Medication ?Instructions ?Recorded ?Confirmed ?Last Taken ?Type amlodipine 10 mg tablet 10 mg PO BEDTIME 05/03/24 08/07/25 05/03/24 History buspirone 30 mg tablet 30 mg PO BID 05/03/24 08/07/25 Unknown History cholecalciferol (vitamin D3) 50 50 mcg PO DAILY 05/03/24 08/07/25 Unknown History mcg (2,000 unit) capsule (Vitamin D3) docusate sodium 100 mg capsule 100 mg PO BID 05/03/24 08/07/25 Unknown History folic acid 1 mg tablet 1 mg PO DAILY 05/03/24 08/07/25 Unknown History gabapentin 300 mg capsule 300 mg PO BEDTIME 05/03/24 08/07/25 Unknown History hydralazine 50 mg tablet 50 mg PO TID 05/03/24 08/07/25 Unknown History loratadine 10 mg tablet 10 mg PO DAILY 05/03/24 08/07/25 Unknown History mirtazapine 45 mg tablet 45 mg PO BEDTIME 05/03/24 08/07/25 Unknown History omeprazole 20 mg capsule,delayed 20 mg PO DAILY@0630 05/03/24 08/07/25 Unknown History release phenytoin sodium extended 100 mg 300 mg PO DAILY 05/03/24 08/07/25 Unknown History capsule thiamine HCl (vitamin B1) 100 mg 100 mg PO DAILY 05/03/24 08/07/25 Unknown History tablet warfarin 1 mg tablet 2 mg PO MO@1800 05/03/24 08/07/25 Unknown History warfarin 4 mg tablet 4 mg PO SUTUWETHFRSA@1800 05/03/24 08/07/25 Unknown History acetaminophen 325 mg tablet 650 mg PO Q8H PRN Fever Or Pain 08/07/25 08/07/25 Unknown History atorvastatin 20 mg tablet 20 mg PO BEDTIME 08/07/25 08/07/25 Unknown History clobetasol 0.05 % topical ointment 1 appl topical BID 08/07/25 08/07/25 Unknown History gabapentin 300 mg capsule 300 mg PO BEDTIME PRN Pain 08/07/25 08/07/25 Unknown History hydroxyzine pamoate 25 mg capsule 25 mg PO Q6H PRN Anxiety 08/07/25 08/07/25 Unknown History (Vistaril) naltrexone 50 mg tablet 50 mg PO DAILY 08/07/25 08/07/25 Unknown History Physical Exam Vital Signs and Narrative: Vital Signs: Last Vital Signs Temp 97.8 F 08/07/25 16:42 Pulse 58 08/07/25 16:42 Resp 16 08/07/25 16:42 BP 153/84 H 08/07/25 16:42 Pulse Ox 96 08/07/25 16:42 O2 Del Method Room Air 08/07/25 16:42 BMI result Body Mass Index 24.2 Appearance: Alert.? Oriented X3.? not in distress.? cvs: rrr, [id number] . res: clear to auscultation ,no rhonchii or wheezing abd: no rebound or guarding ,nt, bs present. ext pulses present , no cyanosis neuro: axo3 , nonfocal. Results Labs 08/07/25 11:05 08/07/25 11:05 Labs: Laboratory Results - last 24 hr 08/07/25 08/07/25 08/07/25 11:05 13:05 15:42 MCV 98.7 H MCH 33.4 H MCHC 33.9 RDW 12.3 Plt Count 100 L MPV 9.6 Immature Gran % (Auto) 0.2 Neut % (Auto) 77.8 H Lymph % (Auto) 11.4 L Rusk % (Auto) 7.2 Eos % (Auto) 2.7 Baso % (Auto) 0.7 Lymph # (Auto) 0.5 L Rusk # (Auto) 0.3 Eos # (Auto) 0.1 Baso # (Auto) 0.0 Abs Immat Gran (auto) 0.01 Absolute Neuts (auto) 3.1 Absolute Nucleated RBC 0.000 Nucleated RBC % (auto) 0.0 PT INR Anion Gap 10 L Estim Creat Clear Calc 39.5 Estimated GFR 40 Random Glucose 103 Calcium 9.7 Troponin I High Sens 13.5 21.5 D 22.7 08/07/25 16:19 MCV MCH MCHC RDW Plt Count MPV Immature Gran % (Auto) Neut % (Auto) Lymph % (Auto) Rusk % (Auto) Eos % (Auto) Baso % (Auto) Lymph # (Auto) Rusk # (Auto) Eos # (Auto) Baso # (Auto) Abs Immat Gran (auto) Absolute Neuts (auto) Absolute Nucleated RBC Nucleated RBC % (auto) PT 40.7 H D INR 3.5 H Anion Gap Estim Creat Clear Calc Estimated GFR Random Glucose Calcium Troponin I High Sens Imaging Radiologist's Impressions: Impressions Chest X-Ray 08/07/25 11:29 IMPRESSION: Bibasilar subsegmental atelectasis. Electronically signed by: Edwin Ventura MD 08/07/2025 11:36 AM EDT RP Assessment and Plan (1) Chest pain: Qualifiers: Chest pain type: unspecified Qualified Code(s): R07.9 - Chest pain, unspecified Status: Acute Plan 70y/o male with past medical history hypertension, hyperlipidemia, DVT/on Coumadin, aortic stenosis, ascending aortic aneurysm who came with chest pain chest pain - trops ,ekg seens fine cxr -bibasilar atelactsis plan: moniter on tele echo Ed physician d/w case with cardiology: patient does have history of aortic stenosis and he has a an ascending aneurysm -need cardiac workup echo, unfortunately we can not do a CTA because he as CKD. cardiology eval-need stress test HLP:start meds once med recocillation done hx of dvt -on warfarin-hold due to supratheapeutic inr patient will admitted for observation for chest pain -need stress test. Quality Stroke Does the patient have a stroke diagnosis?: No VTE Prior VTE?: No VTE Risk Level:: Medical - moderate - high VTE Device Contraindication: N/A - Device Ordered VTE Drug Contraindication: N/A - Med Ordered
--- NOTE | 2025-08-07 18:36 | PHA.MEDREC ---
Addendum entered by Abby Jade RPh 08/07/25 18:49: Reviewed by [facility] Original Note: Pharmacy Consult ? Medication Reconciliation Pharmacy has completed the medication reconciliation. spoke to patient through cooking instructor service to confirm med list. Patient is a poor historian. Patient states he doesn't know what he takes, however there was a list next to patient bedside table. Utilized claim and list of medications to confirm med list. Patient was able to confirm Warfarin 4 mg daily and warfarin 2 mg (2x 1 mg tablets) every Tuesday.
[2025-08-08] VITALS (9 sets, daily range): BP systolic 99–170; BP diastolic 62–97; PULSE 52–66; RESP 12–18; TEMP 36.1–36.7; O2SAT 94–98; BMI 22.8
[2025-08-08] MEDS: 0.9 % Sodium Chloride Flush 3 ML SYRINGE IVFLUSH ×3 (01:05→20:31)
--- NOTE | 2025-08-08 05:30 | PC.NURSE ---
patient noted to be sinus bradycardic in the low 40s while asleep. when wakening patient, patient HR increases between 50-60bpm. MD notified/aware. no new orders at this time. pending transfer for bed assignment.
--- NOTE | 2025-08-08 05:45 | HO.NURTONUR ---
a&ox4. vss and up to date. nsr on the monitor. on RA baseline as well as currently w/o difficulty - no sob/wob noted. respirations even/unlabored. low sodium diet. swallows pills whole w/o difficulty. ambulatory w/o devices - strong/steady gait. 20gIV in the left AC via EMS - remains patent/intact. nothing currently infusing. pt presents to the ED from [facility] c/o sternal chest pain radiating to right side that lasted a few minutes. pt reports sx worsen when his blood pressure is high. pt reports that these sx have been intermittent x 1 year. hx aortic stenosis/ascending aorta based off of previous echocardiogram. EF WNL. elevated troponins during this ED visit. pending echocardiogram/cardiology consult. pt otherwise calm/cooperative/pleasant.
--- NOTE | 2025-08-08 07:00 | CA_ITS ---
Transthoracic Echocardiogram Patient (Last, First, Middle): Chriss Munoz, Gender: Male Date of : 1955 Age: 70 Procedure Date: 08/08/2025 Procedure Type: Transthoracic E[place]ocardi[place] [facility] [place]: 175.26 cm Weight: 69.85 kg BSA: 1.85 m2 Heart Rate: 53 bpm BP: 134 / 81 mmHg Professor Of Mathematics: DARBY/SANDRA Referring MD: Keon Escalona MD Symptoms: chest pain Study Quality: Adequate ECG Rhythm: Sinus Conclusions: - The left ventricular systolic function is normal. The calculated ejection fraction is 69% by biplane method. - Possible basal inferior akinesis. - There is moderate calcification of the aortic valve. There is mild aortic valve stenosis. - There is mild dilatation of the ascending aorta measuring 4.20 cm. Findings Left Ventricle Normal left ventricular cavity size. There is mildly increased left ventricular wall thickness. The left ventricular systolic function is normal. The calculated ejection fraction is 69% by biplane method. Possible basal inferior akinesis. Right Ventricle Mildly increased right ventricular cavity size. There is normal right ventricular systolic function. Atria Both atria are normal in size. Aortic Valve There is moderate calcification of the aortic valve. There is mild aortic valve stenosis. The mean gradient is 17 mmHg. The aortic valve area is 1.89 cm2. There is trace (trivial) aortic valve regurgitation. Mitral Valve The mitral valve appears normal. There is mild mitral annular calcification. There is trace mitral valve regurgitation. There is no mitral valve stenosis. Pulmonic Valve There is trace pulmonic valve regurgitation. Tricuspid Valve There is trace tricuspid valve regurgitation. There is no evidence of pulmonary hypertension. Great Vessels There is mild dilatation of the ascending aorta measuring 4.20 cm. Venous The inferior vena cava is normal in size and collapses greater than 50% with inspiration. Pericardium/Pleural There is no evidence of pericardial effusion. Prior Study Comparison No significant change compared to prior study dated: 08/27/2024. Measurements 2D Linear Measurements IVSd: 1.40 0.6-0.9/0.6-1.0 cm LVIDd: 3.53 3.9-5.3/4.2-5.9 cm LVIDd Index: 1.91 2.4-3.2/2.2-3.1 cm/m2 LVPWd: 1.37 0.7-1.1 cm LA Diam: 3.40 2.7-3.8/3.0-4.0 cm LAIDs Index: 1.84 1.5-2.3 cm/m2 LV Mass: 214.30 67-162/88-224 g LV Mass Index: 115.84 43-95/49-115 g/m2 LVOT Diam: 2.00 3.0+(-)1.3 cm 2D Systolic Function EF 4C: 71.10 >55% EF 2C: 62.80 >55% EF BiP: 68.90 >55% Aortic Valve AoV Pk Eze: 2.82 AoV Mn Eze: 1.86 AoV VTI: 0.53 AoV Pk Grad: 32.00 Aov Mn Grad: 17.00 HUSSEIN Cont.VTI: 1.89 LVOT LVOT Pk Eze: 1.63 LVOT Mn Eze: 1.11 LVOT VTI: 0.32 LVOT Pk Grad: 11.00 LVOT Mn Grad: 6.00 LVOT Diam: 2.00 LVOT Area: 3.14 Right Ventricle TAPSE (mm): 25.80 TVS' Eze: 14.80 Tricuspid Valve TR Pk Eze: 2.09 TR Pk Grad: 17.00 RA Press: 3.00 RVSP: 20.00 Great Vessels Aorta Sinus of Valsalva: 3.30 2.0-3.5 cm Ao Asc: 4.20 2.1-3.4 cm Ao Arch: 3.60 Pulmonary Veins Pulm Vein S/D 1.60 Pulmonary Valve PV Pk Eze: 1.03 Peak PV Grad: 4.00 Updated in Other Vendor System with Status of Final Karri Trinidad MD electronically signed on 08/08/2025 11:47:00 AM with status of Final
--- NOTE | 2025-08-08 09:11 | MHC.CM.PN ---
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 PT'S GOAL FOR DC IS HOME. PT VERIFIES PCP IS DR. RIOS, PT EDUCATED ON AND COMPLETES A HCP NAMING HIS GDTR RAMEZ PIERRE [phone], PT PROVIDED W/EDUCATIONAL HANDOUT, OROGINAL AND COPY, COPY UPLOADED TO [facility] AND PLACED IN CHART. 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
--- NOTE | 2025-08-08 09:50 | P.CONCA_ITS ---
History of Present Illness History of Present Illness Date of Service: 08/08/25 Chief complaint: chest pain Narrative: This is a cardiology consultation regarding chest pain. Discussed with patient using chef kitchen manager. He is followed up in our clinic and last appointment was with Jenny Oden few months back. Per that note, he has a history of aortic stenosis as well as mild ascending aortic dilatation. He has hypertension, hyperlipidemia and he has had atypical chest pains that were not thought to be cardiac in nature. There was no plan for any testing based on that last note from February of this year. Current admission is also because of chest pain. Somewhat of a poor historian and in spite of a chef kitchen manager I am not able to get a good history about this chest pain. He states that he is walking and he suddenly noticed chest pain. However, ER note he apparently had a few minutes of chest pain yesterday and then blood pressure was elevated in the clinic and he was referred here. Because of concerns of prior valve disease and aortic aneurysm he was admitted. Currently, he is pain-free. Not able to get any further information. It does not appear that there is any documented coronary disease in the past. Review of Systems 2 Review of Systems: Yes all other systems are reviewed and are negative Constitutional: Constitutional: Reports as per HPI and Reports no additional constitutional complaints Eyes: Eyes: Reports as per HPI and Denies no additional eye complaints ENT: Denies system reviewed and no additional complaints, except as documented and Reports as per HPI Cardiovascular: Cardiovascular: Reports as per HPI, Reports no additional cardiovascular complaints, Denies acrocyanosis, Denies cool extremities, Reports chest pain, Denies leg edema, Denies lightheadedness, Denies palpitations and Denies dyspnea Respiratory: Respiratory: Reports as per HPI, Denies no additional respiratory complaints and Denies dyspnea Gastrointestinal: Gastrointestinal: Reports as per HPI and Denies no additional gastrointestinal complaints Genitourinary: Genitourinary: Reports no additional male genitourinary complaints and Reports as per HPI Musculoskeletal: Musculoskeletal: Reports no additional musculoskeletal complaints and Reports as per HPI Integumentary/Breasts: Skin/Breast: Reports system reviewed and no additional complaints, except as docu Neurologic: Reports system reviewed and no additional complaints, except as documented and Reports as per HPI Psychiatric: Psychiatric: Reports no additional psychiatric complaints and Reports as per HPI Endocrine: Endocrine: Reports no additional endocrine complaints, Reports as per HPI and Denies palpitations Hematologic/Lymphatic: Hematologic/Lymphatic: Reports no additional hematologic/lymphatic complaints and Reports as per HPI Allergic/Immunologic: Allergic/Immunologic: Reports no additional allergic/immunologic complaints and Reports as per HPI PMFSH Past Medical History Medical History Ascending aortic aneurysm Colon cancer screening Hemorrhoid Aortic aneurysm GERD (gastroesophageal reflux disease) Chronic anticoagulation Alcohol abuse Mood disorder Mood disorder due to a general medical condition Peripheral vascular disease DVT (deep venous thrombosis) Hyperhomocysteinemia CKD (chronic kidney disease) Depression Seizure Family History Family History Paternal Grandmother Cancer Maternal Grandfather Cancer Paternal Aunt Cancer Surgical History Surgical History Hx of colonoscopy Hx of hernia repair Social History Social History Household Members: None Housing: Apartment Are you a primary hourly caregiver to a significant other at home: No Do you presently have visiting nurse or other home services: No Unable to assess alcohol history related to: Unknown Alcohol intake: current Alcohol intake frequency: does not drink Alcohol type: beer Patient Tobacco Use Status: Never used Tobacco Smoked in Last 30 Days: No Use of substances other than those prescribed or required for medical reasons: Unknown Currently Displaying Signs/Symptoms of Drug Intoxication Withdrawal: No Advance Directives: No Advance Directives Information Provided: Yes Advance Directives Date on File: 10/01/20 Nutrition Risks: No Nutritional Risk service: No Current occupational status: disabled Meds Allergies Allergy/AdvReac Type Severity Reaction Status Date / Time ibuprofen (From Motrin) Allergy Intermediate Unknown Verified 08/07/25 10:49 acetaminophen (From Percocet) Allergy Unknown Verified 08/07/25 10:49 oxycodone Allergy Unknown Verified 08/07/25 10:49 Active Medications: Current Medications Acetaminophen (Acetaminophen 325 Mg Tablet) 650 mg PO Q6H PRN PRN Reason: Pain, Mild 1-3,fever,headache Amlodipine Besylate (Amlodipine Besylate 10 Mg Tablet) 10 mg PO BEDTIME ARNALDO; Protocol Last Admin: 08/07/25 21:39 Dose: 10 mg Atorvastatin Calcium (Atorvastatin Calcium 20 Mg Tablet) 20 mg PO BEDTIME [facility] Last Admin: 08/07/25 21:39 Dose: 20 mg Buspirone HCl (Buspirone Hcl 10 Mg Tablet) 30 mg PO BID [facility] Last Admin: 08/08/25 07:49 Dose: 30 mg Calcium Carbonate (Calcium Carbonate 750 Mg Tab.Chew) 750 mg PO Q4H PRN PRN Reason: Heartburn Docusate Sodium (Docusate Sodium 100 Mg Capsule) 100 mg PO BID [facility] Last Admin: 08/08/25 07:50 Dose: 100 mg Doxazosin Mesylate (Doxazosin Mesylate 2 Mg Tablet) 4 mg PO BEDTIME [facility]; Protocol Last Admin: 08/07/25 21:39 Dose: 4 mg Finasteride (Finasteride 5 Mg Tablet) 5 mg PO DAILY [facility] Last Admin: 08/08/25 07:50 Dose: 5 mg Folic Acid (Folic Acid 1 Mg Tablet) 1 mg PO DAILY [facility] Last Admin: 08/08/25 07:50 Dose: 1 mg Gabapentin (Gabapentin 300 Mg Capsule) 300 mg PO BEDTIME ARNALDO Last Admin: 08/07/25 21:38 Dose: 300 mg Hydralazine HCl (Hydralazine Hcl 50 Mg Tablet) 50 mg PO TID [facility]; Protocol Last Admin: 08/08/25 07:50 Dose: 50 mg Hydroxyzine HCl (Hydroxyzine Hcl 25 Mg Tablet) 25 mg PO Q6H PRN PRN Reason: Anxiety Loratadine (Loratadine 10 Mg Tablet) 10 mg PO DAILY [facility] Last Admin: 08/08/25 07:50 Dose: 10 mg Magnesium Hydroxide (Milk Of Magnesia 30 Ml Oral.Susp) 30 ml PO DAILY PRN PRN Reason: Constipation Melatonin (Melatonin 3 Mg Tablet) 6 mg PO BEDTIME PRN PRN Reason: Insomnia Mirtazapine (Mirtazapine 15 Mg Tablet) 45 mg PO BEDTIME [facility] Last Admin: 08/07/25 21:40 Dose: 45 mg Naltrexone HCl (Naltrexone Hcl 50 Mg Tablet) 50 mg PO DAILY [facility] Last Admin: 08/08/25 07:50 Dose: 50 mg Omeprazole (Omeprazole 20 Mg Capsule.Dr) 20 mg PO DAILY@0630 [facility] Last Admin: 08/08/25 06:26 Dose: 20 mg Phenytoin Sodium (Phenytoin Sodium Extended 100 Mg Capsule) 300 mg PO DAILY [facility] Last Admin: 08/08/25 07:50 Dose: 300 mg Sodium Chloride (0.9 % Sodium Chloride Flush 3 Ml Syringe) 3 ml IVFLUSH QSHIFT [facility] Last Admin: 08/08/25 07:49 Dose: 3 ml Thiamine HCl (Thiamine Hcl 100 Mg Tablet) 100 mg PO DAILY [facility] Last Admin: 08/08/25 07:50 Dose: 100 mg Vitamin D (Cholecalciferol (Vitamin D3) 25 Mcg Tablet) 50 mcg PO DAILY [facility] Last Admin: 08/08/25 07:49 Dose: 50 mcg Home Medications ?Medication ?Instructions ?Recorded ?Confirmed ?Last Taken ?Type amlodipine 10 mg tablet 10 mg PO BEDTIME 05/03/2405/03/24 History buspirone 30 mg tablet 30 mg PO BID 05/03/24 Unknown History cholecalciferol (vitamin D3) 50 50 mcg PO DAILY 08/07/25 Unknown History mcg (2,000 unit) capsule (Vitamin D3) docusate sodium 100 mg capsule 100 mg PO BID 05/03/24 08/07/25 Unknown History folic acid 1 mg tablet 1 mg PO DAILY 05/03/2408/07 Unknown History gabapentin 300 mg capsule 300 mg PO BEDTIME 05/03/24 1 Unknown History hydralazine 50 mg tablet 50 mg PO TID 05/03/24 Unknown History loratadine 10 mg tablet 10 mg PO DAILY 05/03/2407/11 Unknown History mirtazapine 45 mg tablet 45 mg PO BEDTIME 05/03/24 Unknown History omeprazole 20 mg capsule,delayed 20 mg PO DAILY@0630 0 05/03/24 08/07/25 Unknown History release phenytoin sodium extended 100 mg 300 mg PO DAILY 05/0308/07/25 Unknown History capsule thiamine HCl (vitamin B1) 100 mg 100 mg PO DAILY 05/0308/07/25 Unknown History tablet warfarin 1 mg tablet 2 mg PO MO@1800 05/03/24 Unknown History warfarin 4 mg tablet 4 mg PO SUTUWETHFRSA@1800 08/07/25 Unknown History acetaminophen 325 mg tablet 650 mg PO Q8H PRN Fever Or Pain 08/07/25 08/07/25 Unknown History atorvastatin 20 mg tablet 20 mg PO BEDTIME 08/07/25 Unknown History clobetasol 0.05 % topical ointment 1 appl topical BID 08/07/25 08/07/25 Unknown History gabapentin 300 mg capsule 300 mg PO BEDTIME PRN Pain 1 08/07/25 Unknown History hydroxyzine pamoate 25 mg capsule 25 mg PO Q6H PRN Anx iety 08/07/25 08/07/25 Unknown History (Vistaril) naltrexone 50 mg tablet 50 mg PO DAILY 08/07/2507/11 Unknown History Physical Exam 2 Vital Signs: Vital Signs: Last Vital Signs Temp 97.9 F 08/08/25 07:28 Pulse 66 08/08/25 07:28 Resp 18 08/08/25 07:28 BP 134/81 08/08/25 07:28 Pulse Ox 94 08/08/25 07:28 O2 Del Method Room Air 08/08/25 07:28 BMI result Body Mass Index 22.8 Const: General: comfortable and no acute distress O rientation/consciousness: patient oriented x3 HEENT: Other: Unremarkable Head: Yes normal to inspection Neck: Neck: Yes normal visual inspection Chest: Chest palpation & inspection: normal inspection of the chest Resp: Auscultation: clear to auscultation bilaterally Cardio: Palpation: normal PMI Heart sounds: S1 normal heart sound present, S2 normal heart sound present, no gallops, Murmur heart sound present systolic II/ and no rubs GI: Palpation (GI): Soft to palpation Back/Spine/Pelvis: Other: unremarkable Skin: General skin exam: no rashes or lesions noted Neuro: General: patient oriented x3 Extrem: General: Yes normal to inspection Psych: Mental Status: mental status grossly normal Objective Labs and Meds 08/07/25 11:05 08/07/25 11:05 Lab results: Laboratory Results - last 24 hr 08/07/25 08/07/25 08/07/25 11:05 13:05 15:42 WBC 4.0 L RBC 4.55 L Hgb 15.2 Hct 44.9 MCV 98.7 H MCH 33.4 H MCHC 33.9 RDW 12.3 Plt Count 100 L MPV 9.6 Immature Gran % (Auto) 0.2 Neut % (Auto) 77.8 H Lymph % (Auto) 11.4 L [place] % (Auto) 7.2 Eos % (Auto) 2.7 Baso % (Auto) 0.7 Lymph # (Auto) 0.5 L [place] # (Auto) 0.3 Eos # (Auto) 0.1 Baso # (Auto) 0.0 Abs Immat Gran (auto) 0.01 Absolute Neuts (auto) 3.1 Absolute Nucleated RBC 0.000 Nucleated RBC % (auto) 0.0 PT INR Sodium 144 Potassium 4.7 Chloride 111 H Carbon Dioxide 28 Anion Gap 10 L BUN 23 H Creatinine 1.69 H Estim Creat Clear Calc 39.5 Estimated GFR 40 Random Glucose 103 Calcium 9.7 Troponin I High Sens 13.5 21.5 D 22.7 08/07/25 16:19 WBC RBC Hgb Hct MCV MCH MCHC RDW Plt Count MPV Immature Gran % (Auto) Neut % (Auto) Lymph % (Auto) [place] % (Auto) Eos % (Auto) Baso % (Auto) Lymph # (Auto) [place] # (Auto) Eos # (Auto) Baso # (Auto) Abs Immat Gran (auto) Absolute Neuts (auto) Absolute Nucleated RBC Nucleated RBC % (auto) PT 40.7 H D INR 3.5 H Sodium Potassium Chloride Carbon Dioxide Anion Gap BUN Creatinine Estim Creat Clear Calc Estimated GFR Random Glucose Calcium Troponin I High Sens ECG Interpretation: Per EKG, underlying sinus rhythm at 59/Min; PACs. No ischemic changes. Imaging Radiologist's impression: Impressions Chest X-Ray 08/07/25 11:29 IMPRESSION: Bibasilar subsegmental atelectasis. Electronically signed by: Edwin Ventura MD 08/07/2025 11:36 AM EDT Assessment and Plan (1) Chest pain: Qualifiers: Chest pain type: unspecified Qualified Code(s): R07.9 - Chest pain, unspecified Status: Acute Atypical chest pain and it seems that it has been happening even in the past per last notes. Probably can outpatient stress test. There was no evidence of ACS (2) Non-rheumatic aortic stenosis: Status: Acute Per last echocardiogram, moderately thickened aortic valve with [id number] stenosis. (3) Ascending aortic aneurysm: Qualifiers: Presence of rupture: without rupture Qualified Code(s): I71.21 - Aneurysm of the ascending aorta, without rupture Status: Acute Ascending aortic size 4.2 cm in the last study. We will recheck on echocardiogram. Plan Unless any concerning findings on echocardiogram, consider outpatient stress testing. Procedures Date of Service Date of Service: 08/08/25
--- NOTE | 2025-08-08 11:47 | CA_ITS ---
Acquisition Time: 2025-08-09 09:59:18 Total Exercise Time: 00:05:00 Test Indications: CP Medications: SEE EMAR Protocol: MOD [place] Max HR: 144 BPM 97% of Pred: 148 BPM Max BP: 158/92 mmHG Max Work Load: 2.2 METS Exercise stress test with exercise 5 mins of Modified Cameron due to difficulty walking, achieving 97% MPHR, with reports of SOB, no chest pain, with isolated PVCs, with normotensive response to exercise. Without any EKG changes meeting criteria for ischemia. In recovery, breathing improved to baseline. Nuclear images pending. Test reviewed with Dr. Trinidad. Referred By: Karri Trinidad Electronically Signed By: Cornelio Lala
[2025-08-08 16:04] LABS: INTERNATIONAL NORM RATIO 3.3 (0.9-1.1); Prothrombin Time 38.0 SEC (10.9-12.4)
[2025-08-09 03:08] VITALS: BP 114/67; PULSE 52; RESP 16; TEMP 36.2; O2SAT 95
[2025-08-09 08:00] VITALS: BP 132/77; BP 149/92; PULSE 74; PULSE 90; RESP 18; TEMP 36.5; O2SAT 95; O2SAT 96
--- NOTE | 2025-08-09 08:04 | P.PNIM_ITS ---
Subjective Subjective Date of Service: 08/09/25 Interval History: chest pain Physical Exam 2 Vital Signs: Vital Signs: Last Vital Signs Temp 97.1 F 08/09/25 03:08 Pulse 52 08/09/25 03:08 Resp 16 08/09/25 03:08 BP 114/67 08/09/25 03:08 Pulse Ox 95 08/09/25 03:08 O2 Del Method Room Air 08/09/25 03:08 BMI result Body Mass Index 22.8 Objective Data Active Medications Acetaminophen (Acetaminophen 325 Mg Tablet) 650 mg PO Q6H PRN PRN Reason: Pain, Mild 1-3,fever,headache Amlodipine Besylate (Amlodipine Besylate 10 Mg Tablet) 10 mg PO BEDTIME [facility]; Protocol Last Admin: 08/08/25 20:30 Dose: 10 mg Documented By: ROSAURA Atorvastatin Calcium (Atorvastatin Calcium 20 Mg Tablet) 20 mg PO BEDTIME [facility] Last Admin: 08/08/25 20:31 Dose: 20 mg Documented By: ROSAURA Betamethasone Dipropion Augmented (Betamethasone Dip Aug 0.05% Cr 15 Gm Tube) 1 appl TOPICAL BID [facility] Last Admin: 08/08/25 20:41 Dose: Not Given Documented By: ROSAURA Non-Admin Reason: Patient Refused Buspirone HCl (Buspirone Hcl 10 Mg Tablet) 30 mg PO BID [facility] Last Admin: 08/08/25 20:31 Dose: 30 mg Documented By: ROSAURA Calcium Carbonate (Calcium Carbonate 750 Mg Tab.Chew) 750 mg PO Q4H PRN PRN Reason: Heartburn Docusate Sodium (Docusate Sodium 100 Mg Capsule) 100 mg PO BID [facility] Last Admin: 08/08/25 20:31 Dose: 100 mg Documented By: ROSAURA Doxazosin Mesylate (Doxazosin Mesylate 2 Mg Tablet) 4 mg PO BEDTIME [facility]; Protocol Last Admin: 08/08/25 20:30 Dose: 4 mg Documented By: ROSAURA Finasteride (Finasteride 5 Mg Tablet) 5 mg PO DAILY [facility] Last Admin: 08/08/25 07:50 Dose: 5 mg Documented By: LORI Folic Acid (Folic Acid 1 Mg Tablet) 1 mg PO DAILY [facility] Last Admin: 08/08/25 07:50 Dose: 1 mg Documented By: LORI Gabapentin (Gabapentin 300 Mg Capsule) 300 mg PO BEDTIME [facility] Last Admin: 08/08/25 20:31 Dose: 300 mg Documented By: ROSAURA Hydralazine HCl (Hydralazine Hcl 50 Mg Tablet) 50 mg PO TID [facility]; Protocol Last Admin: 08/08/25 20:31 Dose: 50 mg Documented By: ROSAURA Hydroxyzine HCl (Hydroxyzine Hcl 25 Mg Tablet) 25 mg PO Q6H PRN PRN Reason: Anxiety Loratadine (Loratadine 10 Mg Tablet) 10 mg PO DAILY [facility] Last Admin: 08/08/25 07:50 Dose: 10 mg Documented By: LORI Magnesium Hydroxide (Milk Of Magnesia 30 Ml Oral.Susp) 30 ml PO DAILY PRN PRN Reason: Constipation Melatonin (Melatonin 3 Mg Tablet) 6 mg PO BEDTIME PRN PRN Reason: Insomnia Mirtazapine (Mirtazapine 15 Mg Tablet) 45 mg PO BEDTIME [facility] Last Admin: 08/08/25 20:31 Dose: 45 mg Documented By: ROSAURA Naltrexone HCl (Naltrexone Hcl 50 Mg Tablet) 50 mg PO DAILY [facility] Last Admin: 08/08/25 07:50 Dose: 50 mg Documented By: LORI Omeprazole (Omeprazole 20 Mg Capsule.) 20 mg PO DAILY@0630 [facility] Last Admin: 08/09/25 05:46 Dose: 20 mg Documented By: ROSAURA Phenytoin Sodium (Phenytoin Sodium Extended 100 Mg Capsule) 300 mg PO DAILY [facility] Last Admin: 08/08/25 07:50 Dose: 300 mg Documented By: LORI Sodium Chloride (0.9 % Sodium Chloride Flush 3 Ml Syringe) 3 ml IVFLUSH QSHIFT [facility] Last Admin: 08/08/25 20:31 Dose: 3 ml Documented By: ROSAURA Thiamine HCl (Thiamine Hcl 100 Mg Tablet) 100 mg PO DAILY [facility] Last Admin: 08/08/25 07:50 Dose: 100 mg Documented By: LORI Vitamin D (Cholecalciferol (Vitamin D3) 25 Mcg Tablet) 50 mcg PO DAILY [facility] Last Admin: 08/08/25 07:49 Dose: 50 mcg Documented By: LORI Labs 08/07/25 11:05 08/07/25 11:05 Labs: Laboratory Results - last 24 hr 08/08/25 15:35 PT 38.0 H INR 3.3 H Assessment and Plan Plan 70y/o male with past medical history hypertension, hyperlipidemia, DVT/on Coumadin, aortic stenosis, ascending aortic aneurysm who came with chest pain chest pain - trops ,ekg seens fine cxr -bibasilar atelactsis plan: moniter on tele echo Ed physician d/w case with cardiology: patient does have history of aortic stenosis and he has a an ascending aneurysm -need cardiac workup echo, unfortunately we can not do a CTA because he as CKD. cardiology eval-need stress test HLP:start meds once med recocillation done hx of dvt -on warfarin-hold due to supratheapeutic inr patient will admitted for observation for chest pain -need stress test. Quality Stroke Does the patient have a stroke diagnosis?: No VTE Prior VTE?: No VTE Risk Level:: Medical - moderate - high VTE Device Contraindication: N/A - Device Ordered VTE Drug Contraindication: N/A - Med Ordered
[2025-08-09] MEDS: 0.9 % Sodium Chloride Flush 3 ML SYRINGE IVFLUSH (08:11)
[2025-08-09] MEDS: Betamethasone Dip Aug 0.05% Cr 15 GM TUBE 1 APPL TOPICAL (08:12)
[2025-08-09 09:05] LABS: INTERNATIONAL NORM RATIO 2.0 (0.9-1.1); Prothrombin Time 22.8 SEC (10.9-12.4)
[2025-08-09 12:00] VITALS: BP 114/68; PULSE 63; RESP 18; TEMP 36.9; O2SAT 97
--- NOTE | 2025-08-09 13:02 | MHC.CM.PN ---
Addendum entered by Carola López RN 08/09/25 13:19: PT DISCHARGING HOME W/RESUMP OF [employer]. Original Note: ANTIC PT WILL DC HOME W/RESUMP OF [employer] [place] [facility] [place], IF HOME PT WILL CONTACT HIS [facility]/HCP [facility] FOR TRANSPORT.
--- NOTE | 2025-08-09 13:05 | PM.DS ---
DS: Providers Provider Date of Service: 08/09/25 Date of admission: 08/07/25 16:49 Date of discharge: 08/09/25 Primary care physician: Veronica Gallardo MD Consults: 08/07/25 18:37 Consult to Cardiology Routine Consulting Provider: [facility] [place] [facility] Reason for consultation: chest pain Has provider been notified: No Attending physician on discharge: Keon Escalona Discharging clinician: Keon Escalona DS: Diagnosis Discharge Diagnosis (1) Chest pain: Status: Acute DS: Summary Hospital Course Hospital Course: HPI:70 years old male referred to us by [facility] because chest pain. Patient says he has episode of chest pain lasting few minutes this morning around 07:00 his blood pressure was elevated off of the clinic therefore he was referred to ed.he says has chest pain on /off from almost1 year, could not able to describe well-but says dull pain ,stabbing sometime ,also sometimes radiate to right side chest ,no pleurtic or reproducable. he says his chest pain is improing since he came , he relates his chest pain to flactuating bp. as per ed documentation; He has a history of hypertension history of hyper lipidemia. He has a history of mild to moderate , he has a history of a mild dilated aneurysmally 4.2 cm by the last echo. He has a normal EF. cbc /bmp seems similar,ekg nsr ,mild chastity Ed physician d/w case with cardiology: patient does have history of aortic stenosis and he has a an ascending aneurysm it is reasonable to admit him we will schedule an echo, unfortunately we can not do a CTA because he as CKD. Hospital course: 70y/o male with past medical history hypertension, hyperlipidemia, DVT/on Coumadin, aortic stenosis, ascending aortic aneurysm who came with chest pain:Atypical chest pain-troponin negative, cxr -bibasilar atelactsis ,patient had echo: EF 69%, Question of basal inferior akinesis versus artifact. Mild aortic stenosis. Ascending aortic size 4.2 cm.In the stress test, he reached only 2.2 METS on modified Srinivas protocol but reached 97% of target heart rate. No chest pain. No EKG evidence of ischemia. Perfusion imaging is unremarkable on preliminary review. To be finalized. Lexiscan acute not be used as the patient had caffeine. Overall, no concerning findings to suggest cardiac etiology for his chest pains. Currently patient is asymptomatic no new symptoms. plan: Cardiology recommended no further workup and follow up outpatient. Further management outpatient with the PCP. Above management discussed with the patient in detail length he understand and in agreement with the above plan, time spent 45 minute. Time Attestation Total time managing care of this patient today: 45 mintues. Discharge Coordination Time (in mins): 45 min Quality: Safe Use of Opioids Does Pt have an Active Cancer Diagnosis on the Problem List?: No Quality: Stroke Does the patient have a stroke diagnosis?: No Physical Exam Exam: Exam: Appearance: Alert.? Oriented X3.? not in distress.? cvs: rrr, [id number] . res: clear to auscultation ,no rhonchii or wheezing abd: no rebound or guarding ,nt, bs present. ext pulses present , no cyanosis neuro: axo3 , nonfocal Vital Signs: Vital Signs: Last Vital Signs Temp 97.7 F 08/09/25 08:00 Pulse 90 08/09/25 08:00 Resp 18 08/09/25 08:00 BP 132/77 08/09/25 08:00 Pulse Ox 96 08/09/25 08:00 O2 Del Method Room Air 08/09/25 08:00 BMI result Body Mass Index 22.8 DS: Data Data Completed and Pending Labs on day of discharge: Laboratory Results - last 24 hr 08/08/25 08/09/25 15:35 08:56 PT 38.0 H 22.8 H D INR 3.3 H 2.0 H Discharge Plan Discharge Anticipated Discharge Date/Time: 08/09/25 13:01 Patient Disposition: Home, Self-Care Discharge Diagnosis: Chest pain. Referrals: Jc Lehman MD [Emergency Provider, Emergency Medicine] Veronica Gallardo MD [Primary Care Provider, Internal Medicine] - 1 Week Discharge Medications: Continued atorvastatin 20 mg tablet 20 mg PO BEDTIME acetaminophen 325 mg Tablet 650 mg PO Q8H PRN (Reason: Fever Or Pain) naltrexone 50 mg Tablet 50 mg PO DAILY clobetasol 0.05 % ointment 1 appl topical BID hydroxyzine pamoate [Vistaril] 25 mg Capsule 25 mg PO Q6H PRN (Reason: Anxiety) gabapentin 300 mg capsule 300 mg PO BEDTIME PRN (Reason: Pain) amlodipine 10 mg tablet 10 mg PO BEDTIME buspirone 30 mg tablet 30 mg PO BID thiamine HCl (vitamin B1) 100 mg tablet 100 mg PO DAILY phenytoin sodium extended 100 mg capsule 300 mg PO DAILY warfarin 4 mg tablet 4 mg PO SUTUWETHFRSA@1800 docusate sodium 100 mg capsule 100 mg PO BID gabapentin 300 mg capsule 300 mg PO BEDTIME omeprazole 20 mg capsule,delayed release(DR/EC) 20 mg PO DAILY@0630 mirtazapine 45 mg tablet 45 mg PO BEDTIME folic acid 1 mg tablet 1 mg PO DAILY hydralazine 50 mg tablet 50 mg PO TID warfarin 1 mg tablet 2 mg PO MO@1800 Rx Instructions: 5mg on loratadine 10 mg tablet 10 mg PO DAILY cholecalciferol (vitamin D3) [Vitamin D3] 50 mcg (2,000 unit) capsule 50 mcg PO DAILY terazosin 5 mg capsule 5 mg PO BEDTIME 90 Days Qty: 90 3RF finasteride 5 mg tablet 5 mg PO DAILY 90 Days Qty: 90 3RF Discharge Orders: Discharge Order (Routine); Ordered 08/09/25 Ordered By: Keon Escalona Diet: Advance to usual diet Activity on Discharge: As tolerated Stand Alone Forms: Patient Portal Discharge page Print Language: Welsh Care Plan Goals: Atypical chest pain-troponin negative, patient had echo: EF 69%, also had stress test done which seems preliminary fine. Cardiology recommended no further workup and follow up outpatient. Further management outpatient with the PCP. Health Concerns: Atypical chest pain resolved. No new symptoms. Stress test negative Follow up with Cardiology and PCP outpatient. Plan of Treatment: As above. Assessment: As above.
--- NOTE | 2025-08-09 13:10 | HO.PM.IMPN ---
Subjective Subjective Date of Service: 08/08/25 Interval History: date of service 08/08: no new chest pain Review of Systems Review of Systems: Yes all other systems are reviewed and are negative Physical Exam Exam: Exam: Appearance: Alert.? Oriented X3.? not in distress.? cvs: rrr, [id number] . res: clear to auscultation ,no rhonchii or wheezing abd: no rebound or guarding ,nt, bs present. ext pulses present , no cyanosis neuro: axo3 , nonfocal. Vital Signs: Vital Signs: Last Vital Signs Temp 97.7 F 08/09/25 08:00 Pulse 90 08/09/25 08:00 Resp 18 08/09/25 08:00 BP 132/77 08/09/25 08:00 Pulse Ox 96 08/09/25 08:00 O2 Del Method Room Air 08/09/25 08:00 BMI result Body Mass Index 22.8 Objective Data Active Medications Acetaminophen (Acetaminophen 325 Mg Tablet) 650 mg PO Q6H PRN PRN Reason: Pain, Mild 1-3,fever,headache Amlodipine Besylate (Amlodipine Besylate 10 Mg Tablet) 10 mg PO BEDTIME [facility]; Protocol Last Admin: 08/08/25 20:30 Dose: 10 mg Documented By: ROSAURA Atorvastatin Calcium (Atorvastatin Calcium 20 Mg Tablet) 20 mg PO BEDTIME [facility] Last Admin: 08/08/25 20:31 Dose: 20 mg Documented By: ROSAURA Betamethasone Dipropion Augmented (Betamethasone Dip Aug 0.05% Cr 15 Gm Tube) 1 appl TOPICAL BID [facility] Last Admin: 08/09/25 08:12 Dose: 1 appl Documented By: LORI Buspirone HCl (Buspirone Hcl 10 Mg Tablet) 30 mg PO BID [facility] Last Admin: 08/09/25 08:08 Dose: 30 mg Documented By: LORI Calcium Carbonate (Calcium Carbonate 750 Mg Tab.Chew) 750 mg PO Q4H PRN PRN Reason: Heartburn Docusate Sodium (Docusate Sodium 100 Mg Capsule) 100 mg PO BID [facility] Last Admin: 08/09/25 08:08 Dose: 100 mg Documented By: LORI Doxazosin Mesylate (Doxazosin Mesylate 2 Mg Tablet) 4 mg PO BEDTIME [facility]; Protocol Last Admin: 08/08/25 20:30 Dose: 4 mg Documented By: ROSAURA Finasteride (Finasteride 5 Mg Tablet) 5 mg PO DAILY [facility] Last Admin: 08/09/25 08:08 Dose: 5 mg Documented By: LORI Folic Acid (Folic Acid 1 Mg Tablet) 1 mg PO DAILY [facility] Last Admin: 08/09/25 08:08 Dose: 1 mg Documented By: LORI Gabapentin (Gabapentin 300 Mg Capsule) 300 mg PO BEDTIME [facility] Last Admin: 08/08/25 20:31 Dose: 300 mg Documented By: ROSAURA Hydralazine HCl (Hydralazine Hcl 50 Mg Tablet) 50 mg PO TID [facility]; Protocol Last Admin: 08/09/25 08:08 Dose: 50 mg Documented By: LORI Hydroxyzine HCl (Hydroxyzine Hcl 25 Mg Tablet) 25 mg PO Q6H PRN PRN Reason: Anxiety Loratadine (Loratadine 10 Mg Tablet) 10 mg PO DAILY [facility] Last Admin: 08/09/25 08:08 Dose: 10 mg Documented By: LORI Magnesium Hydroxide (Milk Of Magnesia 30 Ml Oral.Susp) 30 ml PO DAILY PRN PRN Reason: Constipation Melatonin (Melatonin 3 Mg Tablet) 6 mg PO BEDTIME PRN PRN Reason: Insomnia Mirtazapine (Mirtazapine 15 Mg Tablet) 45 mg PO BEDTIME [facility] Last Admin: 08/08/25 20:31 Dose: 45 mg Documented By: ROSAURA Naltrexone HCl (Naltrexone Hcl 50 Mg Tablet) 50 mg PO DAILY [facility] Last Admin: 08/09/25 08:08 Dose: 50 mg Documented By: LORI Omeprazole (Omeprazole 20 Mg Capsule.Dr) 20 mg PO DAILY@0630 [facility] Last Admin: 08/09/25 05:46 Dose: 20 mg Documented By: ROSAURA Phenytoin Sodium (Phenytoin Sodium Extended 100 Mg Capsule) 300 mg PO DAILY [facility] Last Admin: 08/09/25 08:08 Dose: 300 mg Documented By: LROI Sodium Chloride (0.9 % Sodium Chloride Flush 3 Ml Syringe) 3 ml IVFLUSH QSHIFT [facility] Last Admin: 08/09/25 08:11 Dose: 3 ml Documented By: LORI Thiamine HCl (Thiamine Hcl 100 Mg Tablet) 100 mg PO DAILY [facility] Last Admin: 08/09/25 08:08 Dose: 100 mg Documented By: LORI Vitamin D (Cholecalciferol (Vitamin D3) 25 Mcg Tablet) 50 mcg PO DAILY [facility] Last Admin: 08/09/25 08:08 Dose: 50 mcg Documented By: LORI Warfarin Sodium (Warfarin Sodium 4 Mg Tablet) 4 mg PO SUTUWETHFRSA@1800 [facility] Warfarin Sodium (Warfarin Sodium 2 Mg Tablet) 2 mg PO MO@1800 [facility] Labs 08/07/25 11:05 08/07/25 11:05 Labs: Laboratory Results - last 24 hr 08/08/25 08/09/25 15:35 08:56 PT 38.0 H 22.8 H D INR 3.3 H 2.0 H Assessment and Plan (1) Chest pain: Status: Acute Plan 70y/o male with past medical history hypertension, hyperlipidemia, DVT/on Coumadin, aortic stenosis, ascending aortic aneurysm who came with chest pain chest pain - trops ,ekg seens fine cxr -bibasilar atelactsis plan: moniter on tele echo Ed physician d/w case with cardiology: patient does have history of aortic stenosis and he has a an ascending aneurysm -need cardiac workup echo, unfortunately we can not do a CTA because he as CKD. cardiology eval-need stress test HLP:start meds once med recocillation done hx of dvt -on warfarin-hold due to supratheapeutic inr patient will admitted for observation for chest pain -need stress test. Quality Stroke Does the patient have a stroke diagnosis?: No VTE Prior VTE?: No VTE Risk Level:: Medical - moderate - high VTE Device Contraindication: N/A - Device Ordered VTE Drug Contraindication: N/A - Med Ordered
== END 2025-08-09 15:43 | disposition home or self-care (01) ==
LOC: HO.ED 16:29 → HO.EDOVER 16:56 → HO.IMC 19:13 → HO.EDOVER 20:32 → HO.IMC 08-08 05:22
PROVIDERS: Admitting Provider Internal Medicine; Emergency Provider Emergency Medicine; PCP Family Medicine; Visit Provider Internal Medicine
DX: R07.9 Chest pain, unspecified (principal); I35.0 Nonrheumatic aortic (valve) stenosis; I71.21 Aneurysm of the ascending aorta, without rupture; J98.11 Atelectasis; E78.5 Hyperlipidemia, unspecified; I82.409 Acute embolism and thrombosis of unspecified deep veins of unspecified lower extremity; I12.9 Hypertensive chronic kidney disease with stage 1 through stage 4 chronic kidney disease, or unspecified chronic kidney disease; N18.9 Chronic kidney disease, unspecified; Z79.01 Long term (current) use of anticoagulants; Z79.899 Other long term (current) drug therapy
CPT/HCPCS: 36415; 71046; 78452; 80048; 84484; 85025; 85610; 93005; 93017; 93306; 99222; 99285; A9500; Q9957

== ENCOUNTER → 2025-08-07 10:55 | Outpatient (BNV) | payer OTHER, SELFPAY | PROVIDERS: Emergency Provider Emergency Medicine; PCP Family Medicine; Visit Provider Radiology Diagnostic Radiology | DX: J98.11 Atelectasis (principal) | CPT/HCPCS: 71046 ==

== ENCOUNTER 2025-08-07 16:49 | Outpatient (BNV) | payer OTHER, SELFPAY | END 2025-08-09 11:47 | PROVIDERS: Admitting Provider Internal Medicine; Emergency Provider Emergency Medicine; PCP Family Medicine; Visit Provider Internal Medicine | DX: R07.9 Chest pain, unspecified (principal) | CPT/HCPCS: 78452 ==

== ENCOUNTER 2025-08-07 16:49 | Outpatient (BNV) | payer OTHER, SELFPAY | END 2025-08-08 07:00 | PROVIDERS: Admitting Provider Internal Medicine; Emergency Provider Emergency Medicine; PCP Family Medicine; Visit Provider Internal Medicine | DX: I49.3 Ventricular premature depolarization (principal); R06.02 Shortness of breath | CPT/HCPCS: 93016; 93018 ==

== ENCOUNTER → 2025-08-07 16:49 | Outpatient (BNV) | payer OTHER, SELFPAY | PROVIDERS: Admitting Provider Internal Medicine; Emergency Provider Emergency Medicine; PCP Family Medicine; Visit Provider Internal Medicine | DX: R07.9 Chest pain, unspecified (principal) | CPT/HCPCS: 99222 ==

== ENCOUNTER → 2025-08-07 16:49 | Outpatient (BNV) | payer OTHER, SELFPAY | PROVIDERS: Admitting Provider Internal Medicine; Emergency Provider Emergency Medicine; PCP Family Medicine; Visit Provider Internal Medicine | DX: R07.9 Chest pain, unspecified (principal); I35.0 Nonrheumatic aortic (valve) stenosis; I71.21 Aneurysm of the ascending aorta, without rupture | CPT/HCPCS: 93010; 99223 ==

== ENCOUNTER 2025-09-09 09:30 | Outpatient (REF) | payer OTHER, SELFPAY ==
--- OUTSIDE RECORDS SUMMARY | 2025-09-04 14:00 | XMS_ITS | Encounter Summary ---
Author Organization [employer] Address [address] [place] [address] Care Team Providers Care Operations Research Engineer Name Role Phone Veronica Gallardo MD Primary Care Provider [phone] Brien Vargas PharmD Unavailable [phone] Earline Quinn RN Unavailable [phone] Encounter Details Date Type Department Care Team (Latest Contact Info) Description 09/04/2025 2:00 PM EST Clinical Support [facility] MEDICINE [address] [place], [place] [phone] Earline Quinn, RN [address] [place], [place] [phone] long term care administrator (current) use of anticoagulants Social History Tobacco [...] Progress Notes * Earline Quinn RN - 09/04/2025 2:00 PM EST Chriss is a pleasant 70yo botswanan-speaking male who presents to the office for POCT INR and coumadin dosing d/t long-term coumadin therapy. In person Urdu- Lebanese interpretation provided by EVA Soriano. S: Pt is due for PT/INR today due to hx of DVT's. Pt's target INR is 2-3. This RN spoke with patient who denies any new medications or changes in diet. Pt has been compliant with INR draws. He gets INRs drawn POCT in office with RNs. O: INR today is: 2.2 in office. Pt current dose is: 2mg Tuesday, Th, Fr / 4mg the rest of the week. A: Hx of DVT Risk for blood clot due to sub therapeutic INR P: Pt is to take 2mg M, F/ 4mg the rest of the week. Pt to repeat INR 09/12/2025. Pt aware of plan. -Earline Quinn, RN documented in this encounter Plan of Treatment Upcoming Encounters Date Type Department Care Team (Latest Contact Info) Description 09/12/2025 1:30 PM EST Anticoagulation - Other Visit (DOAC) [facility] MEDICINE [address] [place] [address] 10/14/2025 10:00 AM EST Medication Management [facility] MEDICINE [address] [place] [address] Brien Vargas, PharmD [address] [place] [address] 12/20/2025 10:30 AM EDT Office Visit [facility] OPTOMETRY [address] [place] [address] Johnny, Flora, OD [address] [place] [address] documented as of this encounter Goals Goal Patient Goal Type Associated Problems Recent Progress Patient-Stated? Author Blood Pressure < 140/90 Blood Pressure 138/92( 025 11:05 AM EST) No Brien Vargas, PharmD documented as of this encounter Procedures Procedure Name Priority Date/Time Associated Diagnosis Comments POCT INR Routine 09/04/2025 9:56 AM EST [facility] (current) use of anticoagulants documented in this encounter Results * POCT INR manually resulted (09/04/2025 9:56 AM EST) Protime INR 2.2 2 - 3 Blood Capillary blood specimen / Unknown 09/04/2025 9:56 AM EST Veronica Gallardo MD POINT OF CARE TEST ENTER/EDIT OR DERABLES Final Result documented in this encounter Visit Diagnoses Diagnosis [facility] (current) use of anticoagulants Long-term (current) use of anticoagulants documented in this encounter Additional Health Concerns Assessment Noted Time PHQ-9 Depression Total Score: 0 05/30/20 25 9:11 AM EDT documented as of this encounter Care Teams Operations Research Engineer Relationship Specialty Start Date End Date Veronica Gallardo MD [address] [place], [place] [phone] PCP - General Family Medicine 08/09/12 Brien aVrgas, PallaviD [address] [place] [address] [phone] Pharmacist Internal Medicine 11/30/22 Earline Quinn, RENNY [address] [place] [address] [phone] Registered Nurse Family Medicine 07/29/25 documented as of this encounter
--- OUTSIDE RECORDS SUMMARY | 2025-09-09 11:14 | XMS_ITS | Encounter Summary ---
Author Organization [employer] Address [address] [facility] [address] [place] [address] Care Team Providers Care Die Cast Patternmaker Name Role Phone Veronica Gallardo MD Primary Care Provider [phone] Brien Vargas PharmD Unavailable [phone] Earline Quinn RN Unavailable [phone] Reason for Referral * Consultation (Routine) - Canceled Specialty Diagnoses / Procedures Referred By Joseph alvarado Referred To Contact Pharmacy Diagnoses Hypertension, unspecified type Veronica Gallardo MD [address] [place] [phone] Phone: tel: fax: Referral ID Status Reason Start Date Expiration Date V isits Requested Visits Authorized [id number] Canceled Consult and Treat 10/12/2024 10/12/2025 6 6 Encounter Details Date Type Department Care Team (Late st Contact Info) Description 10/12/2024 Orders Only [facility] MEDICINE [address] [place] [address] [phone] Veronica Gallardo MD [address] [place] [address] [phone] Hypertension, unspecified type (Primary Dx) Social History [...] PM EST Anticoagulation - Other Visit (DOAC) [facility] MEDICINE [address] [place] [address] 10/14/2025 10:00 AM EST Medication Management [facility] MEDICINE [address] [place] [address] Brien Vargas, PharmD [address] [place] [address] 12/20/2025 10:30 AM EDT Office Visit [facility] OPTOMETRY [address] [place], [place] [phone] Flora Turner, OD [address] [place] [address] Scheduled Referrals Name Type Priority Associated Diagnoses [...] documented as of this encounter Care Teams Die Cast Patternmaker Relationship Specialty Start Date End Date Veronica Gallardo MD [address] [place] [phone] PCP - General Family Medicine 08/09/12 Brien Vargas, PharmD [address] [place] [phone] Pharmacist Internal Medicine 11/30/22 Earline Quinn, RENNY [address] [place] [phone] Registered Nurse Family Medicine 07/29/25 documented as of this encounter
--- OUTSIDE RECORDS SUMMARY | 2025-09-09 11:14 | XMS_ITS | Encounter Summary ---
Author Organization [employer] [facility] Address [address] [facility] [address] [place] [address] Care Team Providers Care Services Clerk Name Role Phone Veronica Gallardo MD Primary Care Provider [phone] Brien Vargas PharmD Unavailable [phone] Earline Quinn RN Unavailable [phone] Encounter Details Date Type Department Care Team (Late st Contact Info) Description 06/27/[address] [address] Veronica Gallardo MD [address] [place] [phone] Social History Tobacco Use Types Packs/Day Years [...] PM EST Anticoagulation - Other Visit (DOAC) [address] [phone] 10/14/2025 10:00 AM EST Medication Management [address] [phone] Brien Vargas, PharmD [address] [place] [address] 12/20/2025 10:30 AM EDT Office Visit [facility] OPTOMETRY [address] [place] [address] Johnny, Flora, OD [address] [place] [address] documented as of this encounter Goals Goal [...] documented as of this encounter Care Teams Services Clerk Relationship Specialty Start Date End Date Veronica Gallardo MD [address] [place] [address] PCP - General Family Medicine 08/09/12 Brien Vargas, PharmD [address] [place] [address] Pharmacist Internal Medicine 11/30/22 Earline Quinn RN [address] [place] [phone] Registered Nurse Family Medicine 07/29/25 documented as of this encounter
--- OUTSIDE RECORDS SUMMARY | 2025-09-09 11:14 | XMS_ITS | Encounter Summary ---
Author Organization [facility] Address [address] [facility] 7t [place] [address] Care Team Providers Care Dry House Wheeler Name Role Phone Veronica Gallardo MD Primary Care Provider [phone] Brien Vargas PharmD Unavailable [phone] Earline Quinn RN Unavailable [phone] Reason for Visit * Reason Comments Med Refill Encounter Details Date Type Department Care Team (Late st Contact Info) Description 01/14/2023 Refill [facility] [address] [place] [address] Estefania Gilbert MD [address] [place] [address] [phone] Social History Tobacco Use Types Packs/Day Years [...] PM EST Anticoagulation - Other Visit (DOAC) [facility] [address] [place] [phone] 10/14/2025 10:00 AM EST Medication Management [facility] [address] [place] [address] Brien Vargas, PharmDonte [address] [place] [address] 12/20/2025 10:30 AM EDT Office Visit [facility] [address] [place] [address] Johnny Flora, OD 230 [place] [address] documented as of this encounter Goals Goal Patient Goal Type Associated Problems Recent Progress Patient-Stated? Author Blood Pressure < 140/90 Blood Pressure 138/92( 025 11:05 AM EST) No Brien Vargas, PharmDonte documented as of this encounter Visit Diagnoses Not on filedocumented in this encounter Care Teams Dry House Wheeler Relationship Specialty Start Date End Date Veronica Gallardo MD [address] [place] [address] PCP - General Family Medicine 08/09/12 Brien Vargas, PharmD [address] [place] [address] Pharmacist Internal Medicine 11/30/22 Earline Quinn, RENNY [address] [place] [address] Registered Nurse Family Medicine 07/29/25 documented as of this encounter
--- OUTSIDE RECORDS SUMMARY | 2025-09-09 11:14 | XMS_ITS | Encounter Summary ---
Author Organization [employer] Address [address] [facility] [address] 7t [place] [address] Care Team Providers Care Microsoft Exchange Architect Name Role Phone Veronica Gallardo MD Primary Care Provider [phone] Brien Vargas PharmD Unavailable [phone] Earline Quinn RN Unavailable [phone] Reason for Visit * Reason Comments Med Refill Encounter Details Date Type Department Care Team (Late st Contact Info) Description 10/12/2023 Refill [facility] [address] [place], [place] [phone] Veronica Gallardo MD [address] [place], [place] [phone] Back pain with left-sided radiculopathy Social History [...] PM EST Anticoagulation - Other Visit (DOAC) [facility] [address] [place] [address] 10/14/2025 10:00 AM EST Medication Management [facility] [address] [place] [address] Brien Vargas, PharmD [address] [place] [address] 12/20/2025 10:30 AM EDT Office Visit [facility] OPTOMETRY [address] [place] [address] Johnny, Flora, OD [address] [place] [address] documented as of this encounter Goals Goal [...] documented as of this encounter Care Teams Microsoft Exchange Architect Relationship Specialty Start Date End Date Veronica Gallardo MD [address] [place] [address] PCP - General Family Medicine 08/09/12 Brien Vargas, Efrain [address] [place] [address] Pharmacist Internal Medicine 11/30/22 Earline Quinn, RENNY [address] [place] [address] Registered Nurse Family Medicine 07/29/25 documented as of this encounter
--- OUTSIDE RECORDS SUMMARY | 2025-09-09 11:14 | XMS_ITS | Encounter Summary ---
Author Organization [employer] Address [address] [facility] [address] 7t [place] [address] Care Team Providers Care Assurance Assistant Name Role Phone Veronica Gallardo MD Primary Care Provider [phone] Brien Vargas PharmD Unavailable [phone] Earline Quinn RN Unavailable Encounter Details Date Type Department Care Team (Latest Contact Info) Description 09/04/2025 Travel Social History Tobacco Use Types Packs/Day [...] Anticoagulation - Other Visit (DOAC) [facility] [address] [place] [address] 10/14/2025 10:00 AM EST Medication Management [facility] [address] [place] [address] Brien Vargas, PharmD 230 [place] [address] 12/20/2025 10:30 AM EDT Office Visit [facility] OPTOM[facility] [address] [place] [address] Johnny, Flora, OD 230 [place] [address] documented as of this encounter Goals Goal [...] documented as of this encounter Care Teams Assurance Assistant Relationship Specialty Start Date End Date Veronica Gallardo MD 230 [place], [place] [phone] PCP - General Family Medicine 08/09/12 Brien Vargas, Efrain [address] [place], [place] [phone] Pharmacist Internal Medicine 11/30/22 Earline Quinn, RENNY [address] [place], [place] [phone] Registered Nurse Family Medicine 07/29/25 documented as of this encounter
--- OUTSIDE RECORDS SUMMARY | 2025-09-09 11:14 | XMS_ITS | Encounter Summary ---
Author Organization [employer] Address [address] [facility] [address] 7t [place] [address] Care Team Providers Care Transit Driver Name Role Phone Veronica Gallardo MD Primary Care Provider [phone] Brien Vargas PharmD Unavailable [phone] Earline Quinn RN Unavailable [phone] Reason for Visit * Reason Comments Med Refill Encounter Details Date Type Department Care Team (Late st Contact Info) Description 08/14/2023 Refill [facility] [address] [place], [place] [phone] Brien Vargas, PharmD 230 [place], [place] [phone] Essential hypertension Social History Tobacco Use Types [...] Vargas PharmD - 08/23/2023 11:57 AM EST [facility] will send 1 month fill of hydralazine 25 mg PO TID. Patient rescheduled last cardiology and nephrology visits. Needs to keep upcoming CDTM visit 09/09/2023. documented in this encounter Plan of Treatment Upcoming Encounters Date Type Department Care Team (Latest Contact Info) Description 09/12/2025 1:30 PM EST Anticoagulation - Other Visit (DOAC) [facility] [address] [place] [address] 10/14/2025 10:00 AM EST Medication Management [facility] [address] [place] [address] Brien Vargas, Efrain 230 [place] [address] 12/20/2025 10:30 AM EDT Office Visit [facility] [address] [place] [address] Flora Turner, OD 230 [place] [address] documented as of this encounter Goals Goal Patient Goal Type Associated Problems Recent Progress Patient-Stated? Author Blood Pressure < 140/90 Blood Pressure 138/92( 025 11:05 AM EST) No Brien Vargas PharmD documented as of this encounter Visit Diagnoses Diagnosis Essential hypertension Unspecified essential hypertension documented in this encounter Additional Health Concerns Assessment Noted Time PHQ-9 Depression Total Score: 0 03/24/20 11:18 AM EDT documented as of this encounter Care Teams Transit Driver Relationship Specialty Start Date End Date Veronica Gallardo MD [address] [place] [address] PCP - General Family Medicine 08/09/12 Brien Vargas, PallaviD [address] [place] [address] [phone] Pharmacist Internal Medicine 11/30/22 Earline Quinn, RENNY [address] [place] [address] [phone] Registered Nurse Family Medicine 07/29/25 documented as of this encounter
--- OUTSIDE RECORDS SUMMARY | 2025-09-09 11:14 | XMS_ITS | Encounter Summary ---
Author Organization [facility] Address [address] [facility] 7t [place] [address] Care Team Providers Care Senior Copywriter Name Role Phone Veronica Gallardo MD Primary Care Provider [phone] Brien Vargas PharmD Unavailable [phone] Earline Quinn RN Unavailable [phone] Encounter Details Date Type Department Care Team (Late st Contact Info) Description 09/09/2022 Orders Only [facility] [address] [place] [address] [phone] Veronica Gallardo MD [address] [place] [address] [phone] Social History Tobacco Use Types Packs/Day Years [...] PM EST Anticoagulation - Other Visit (DOAC) [facility] [address] [place] [address] [phone] 10/14/2025 10:00 AM EST Medication Management [facility] [address] [place] [phone] Brien Vargas, PharmD [address] [place] [address] [phone] 12/20/2025 10:30 AM EDT Office Visit [facility] OPTOMETRY [address] [place], [place] [phone] Flora Turner, STACY 230 [place] [address] documented as of this encounter Visit Diagnoses Not on filedocumented in this encounter Care Teams Senior Copywriter Relationship Specialty Start Date End Date Veronica Gallardo MD 230 [place] [address] PCP - General Family Medicine 08/09/12 Brien Vargas, PallaviD [address] [place] [address] Pharmacist Internal Medicine 11/30/22 Earline Quinn, RENYN [address] [place] [address] Registered Nurse Family Medicine 07/29/25 documented as of this encounter
--- OUTSIDE RECORDS SUMMARY | 2025-09-09 11:14 | XMS_ITS | Encounter Summary ---
Author Organization [facility] Address [address] [facility] 7t [place] [address] Care Team Providers Care Retort Kiln Burner Name Role Phone Veronica Gallardo MD Primary Care Provider [phone] Brien Vargas PharmD Unavailable [phone] Earline Quinn RN Unavailable [phone] Reason for Referral * Consultation (Routine) - Authorized Specialty Diagnoses / Procedures Referred By Joseph alvarado Referred To Contact Pharmacy Diagnoses Hypertension, unspecified type Veronica Gallardo MD [address] [place] [phone] Phone: tel: fax: Referral ID Status Reason Start Date Expiration Date Visits Requested Visits Authorized [id number] Authorized Consult and Treat 08/06/2025 08/06/2026 6 6 Encounter Details Date Type Department Care Team (Late st Contact Info) Description 08/06/2025 Orders Only [facility] [address] [place] [phone] Veronica Gallardo MD [address] [place] [address] [phone] Hypertension, unspecified type (Primary Dx) Social History [...] your housing situation today? I have primo thmoas 05/30/[address] you li [...] PM EST Anticoagulation - Other Visit (DOAC) [facility] [address] [place] [address] 10/14/2025 10:00 AM EST Medication Management [facility] [address] [place] [phone] Brien Vargas, PharmD 230 [place] [address] 12/20/2025 10:30 AM EDT Office Visit [facility] OPTOMETRY [address] [place], [place] [phone] Flora Turner, OD 230 [place] [address] Scheduled Referrals Name Type Priority Associated Diagnoses [...] documented as of this encounter Care Teams Retort Kiln Burner Relationship Specialty Start Date End Date Veronica Gallardo MD 230 [place] [address] PCP - General Family Medicine 08/09/12 Brien Vargas, PharmD [address] [place] [address] [phone] Pharmacist Internal Medicine 11/30/22 Earline Quinn, RENNY [address] [place] [address] Registered Nurse Family Medicine 07/29/25 documented as of this encounter
--- OUTSIDE RECORDS SUMMARY | 2025-09-09 11:14 | XMS_ITS | Encounter Summary ---
Author Organization [employer] Address [address] [facility] [address] 7[address] [place] [address] Care Team Providers Care Road Tester Name Role Phone Veronica Gallardo MD Primary Care Provider [phone] Brien Vargas PharmD Unavailable [phone] Earline Quinn RN Unavailable [phone] Encounter Details Date Type Department Care Team (Late st Contact Info) Description 11/04/2023 Orders Only [facility] 230 [place], [place] [phone] Veronica Gallardo MD 230 [place], [place] [phone] Alcohol use disorder, moderate, in early remission [...] PM EST Anticoagulation - Other Visit (DOAC) [facility] [address] [place] [address] 10/14/2025 10:00 AM EST Medication Management [facility] [address] [place] [address] Brien Vargas, PharmD 230 [place] [address] 12/20/2025 10:30 AM EDT Office Visit [facility] OPTOMETRY [address] [place] [address] Johnny, Flora, OD 230 [place] [address] documented as of this encounter Goals Goal Patient Goal Type Associated Problems Recent Progress Patient-Stated? Author Blood Pressure < 140/90 Blood Pressure 138/92( 025 11:05 AM EST) No Brien Vargas, Efrain documented as of this encounter Visit Diagnoses Diagnosis Alcohol use disorder, moderate, in early remission (CMS/HCC) ([facility])- Primary documented in this encounter Additional Health Concerns Assessment Noted Time PHQ-9 Depression Total Score: 0 03/24/20 23 11:18 AM EDT documented as of this encounter Care Teams Road Tester Relationship Specialty Start Date End Date Veronica Gallardo MD 230 [place] [address] PCP - General Family Medicine 08/09/12 Brien Vargas, PallaviD [address] [place], [place] [phone] Pharmacist Internal Medicine 11/30/22 Ealrine Quinn, RN [address] [place], [place] [phone] Registered Nurse Family Medicine 07/29/25 documented as of this encounter
--- OUTSIDE RECORDS SUMMARY | 2025-09-09 11:14 | XMS_ITS | Encounter Summary ---
Author Organization [employer] Address [address] [facility] [address] 7t [place] [address] Care Team Providers Care Sales And Merchandising Representative Name Role Phone Veronica Gallardo MD Primary Care Provider [phone] Brien Vargas PharmD Unavailable [phone] Earline Quinn RN Unavailable [phone] Encounter Details Date Type Department Care Team (Late st Contact Info) Description 04/02/2025 Orders Only [facility] [address] [place], [place] [phone] Veronica Gallardo MD 230 [place], [place] [phone] Hypertension, unspecified type (Primary Dx); Stage 3 [...] is your housing situation today? I have rpimo william 03/13/[address] you [...] PM EST Anticoagulation - Other Visit (DOAC) [facility] [address] [place] [address] 10/14/2025 10:00 AM EST Medication Management [facility] [address] [place] [address] Brien Vargas, PharmD 230 [place] [address] 12/20/2025 10:30 AM EDT Office Visit [facility] OPTOMET[facility] [address] [place] [address] Johnny, Flora, OD [address] [place] [address] Scheduled Orders Name Type Priority Associated Diagnoses [...] EDT) Hepatitis B Surface Ag Negative Negative [facility] Venous blood specimen / Unknown 04/15/2025 9:10 AM EDT 04/15/2025 11:17 AM EDT us Veronica Gallardo MD LAB BLOOD ORDERABLES Final Resul t [facility] [address] [place] [phone] * HIV-1/2 Antigen and Antibodies, Fourth Generation, with Reflexes (04/15/2025 9:10 AM EDT) HIV AB/AG Nonreactive Nonreactive [facility] Comment:HIV-1 p24 Ag and/or HIV-1/HIV-2 Ab not detected.A test result that is nonreactive does not exclude thepossibility of exposure to or infection with HIV-1 and/orHIV-2. Nonreactive results in this assay for individualswith prior exposure to HIV-1 and/or HIV-2 may be due toantigen and antibody levels that are below the limit ofdetection of this assay.The [employer]ar[employer] HIV Ag/Ab Combo assay result andsupplemental assay [...] Address City/[facility]/ZIP Co de Phone Number [facility] [address] [place] [phone] * Hepatitis C Antibody with Reflex to HCV, RNA, Quantitative, Real-Time PCR (04/15/2025 9:10 AM EDT) Hepatitis C Antibody Nonreactive Nonreactive [facility] Comment:Antibodies to HCV no t detected; does not exclude early acuteHCV infection. Venous blood specimen / Unknown 04/15/2025 9:10 AM EDT 04/15/2025 11:17 AM EDT Veronica Gallardo MD LAB BLOOD ORDERABLES Final Resul t Performing Organization Address City/[facility]/ZIP Co de Phone Number [facility] [address] [place] [address] [phone] * Syphilis Screen (04/15/2025 9:10 AM EDT) Syphilis Screen Nonreactive Nonreactive [facility] 04/15/2025 9:10 AM EDT 04/15/2025 6:02 PM EDT Veronica Gallardo MD LAB BLOOD ORDERABLES Final Resul t Performing Organization Address [facility] Co de Phone Number [facility] [address] [place] [phone] * Vitamin B12 (Cobalamin) and Folate Panel, Serum (04/15/2025 9:10 AM EDT) [facility] Vitamin B12 224 200 - 900 pg/mL [facility] Comment:NORMAL 200-900 PG/ML INDETERMINATE 160-199 PG/ML DEFICIENT < 160 PG/ML Folate 12.8 > or = 4.0 ng/mL [facility] Comment:Reference Values:> o r = 4.0 ng/mL< 4.0 ng/mL suggests folate deficiency Methotrexate, aminopterin and folinic acid(leucovorin) are chemotherapeutic agents whose molecularstructures are similar to folate; therefore, the Architectfolate assay cannot be used for patients using these drugs. Blood 04/15/2025 9:10 AM EDT 04/15/2025 11:17 AM EDT Veronica Gallardo MD LAB BLOOD ORDERABLES Final Resul t Performing Organization Address [facility]/ZIP Co de Phone Number [facility] [address] [place] [address] [phone] * Vitamin D, 25-Hydroxy, Total, Immunoassay (04/15/2025 9:10 AM EDT) Pathologist [facility] Vitamin D 25-OH Total 42.5 >30 ng/mL [facility] Comment: Health Based Reference Values*< 20 ng/mL Fgkhjaygn52-96 ng/mL Insufficient> 30 ng/mL Sufficient*Ken COLEAMN. N Engl J Med. 2007;357:266-280There is no [...] MD LAB BLOOD ORDERABLES Final Resul t [facility] [address] [place] [phone] * Lipid Panel with Reflex to Direct LDL (04/15/2025 9:10 AM EDT) Triglycerides 107 <150 mg/dL [facility] Comment:Desirable Triglyceri de: less than 150 mg/dLBorderline High Triglyceride 150-199 mg/dLHigh Triglyceride: 200-499 mg/dLVery High Triglyceride: greater than or equal to 5OO mg/dL Cholesterol 168 <200 mg/dL [facility] Comment:Desirable Cholestero l: less than 200 mg/dLBorderline High Cholesterol: 200-239 mg/dLHigh Cholesterol: greater than 239 mg/dL LDL Cholesterol Calculated 91 <100 mg/dL [facility] Comment:Desirable LDL: less than 100 mg/dLNear Optimal/Above Optimal LDL: 110- 129 mg/dLBorderline High LDL: 130-159 mg/dLHigh LDL: 160-189 mg/dLVery High LDL: greater than or equal to 190 mg/dL HDL Cholesterol 56 >40 mg/dL [facility] Comment:Desirable HDL: great er than 40 mg/dL Note: This HDL assay may give artificially low results in patients with liver disease. Blood 04/15/2025 9:10 AM EDT 04/15/2025 11:17 AM EDT Veronica Gallardo MD LAB BLOOD ORDERABLES Final Resul t Performing Organization Address [facility] Co de Phone Number [facility] [address] [place] [address] [phone] * Hemoglobin A1c (04/15/2025 9:10 AM EDT) Hemoglobin A1c 5.3 <6.0 % [facility] Comment:Hemoglobin A1C Refer ence Range Adults: 4.8 - 6.0 % Non diabetic: < 6.0 % Goal: < 7.0 %Additional Action Suggested: > 8.0 %Note: Hemoglobin A1c results are invalid for patients with abnormal amounts of HbF. Blood transfusions may impact the HbA1c concentration in the patient sample. Estimated Average Glucose 105 mg/dL [facility] Comment:eAG = Estimated ave rage glucose which is %A1C expressed asaverage glucose, using the formula of the N7C-GjfyrdpSxgiwys Glucose study (ADAG), Diabetes Care, Vol.31,#8,May. 2007 Blood Venous blood specimen / Unknown 04/15/2025 9:10 AM EDT 04/15/2025 11:17 AM EDT Veronica Gallardo MD LAB BLOOD ORDERABLES Final Resul t Performing Organization Address [facility] Co de Phone Number [facility] [address] [place] [address] [phone] * TSH with Reflex to Free T4 (04/15/2025 9:10 AM EDT) TSH reflex Free T4 2.74 0.32 - 4.0 uIU/mL [facility] Blood 04/15/2025 9:10 AM EDT 04/15/2025 11:17 AM EDT Veronica Gallardo MD LAB BLOOD ORDERABLES Final Resul t [facility] [address] [place] [phone] documented in this encounter Visit Diagnoses Diagnosis Hypertension, unspecified type- Primary Stage 3 chronic kidney disease, unspecified whether stage 3a or 3b CKD ([facility]/HCC) ([facility]) Erythrocytosis Polycythemia, secondary Dyslipidemia Other and unspecified hyperlipidemia Vitamin D deficiency Alcohol use disorder, moderate, in early remission ([facility]) ([facility]) Screening for diabetes mellitus Routine screening for STI (sexually transmitted infection) Screening examination for venereal disease documented in this encounter Additional Health Concerns Assessment Noted Time PHQ-9 Depression Total Score: 0 03/24/20 11:18 AM EDT documented as of this encounter Care Teams Sales And Merchandising Representative Relationship Specialty Start Date End Date Veronica Gallardo MD [address] [place] [address] PCP - General Family Medicine 08/09/12 Brien Vargas, PallaviD [address] [place] [address] Pharmacist Internal Medicine 11/30/22 Earline Quinn, RENNY [address] [place] [phone] Registered Nurse Family Medicine 07/29/25 documented as of this encounter
--- OUTSIDE RECORDS SUMMARY | 2025-09-09 11:14 | XMS_ITS | Encounter Summary ---
Author Organization [facility] [employer] Address [address] [place] [address] Care Team Providers Care 3D Technologist Name Role Phone Veronica Gallardo MD Primary Care Provider [phone] Brien Vargas PharmD Unavailable [phone] Earline Quinn RN Unavailable [phone] Encounter Details Date Type Department Care Team (Late st Contact Info) Description 04/25/2024 Orders Only [facility] MEDICINE [address] [place], [place] [phone] Veronica Gallardo MD [address] [place], [place] [phone] Hypertension, unspecified type Social History Tobacco Use [...] PM EST Anticoagulation - Other Visit (DOAC) [facility] MEDICINE [address] [place] [address] 10/14/2025 10:00 AM EST Medication Management [facility] MEDICINE [address] [place] [address] Brien Vargas, PharmD [address] [place] [address] 12/20/2025 10:30 AM EDT Office Visit [facility] OPTOMETRY [address] [place] [address] Johnny, Flora, OD [address] [place] [address] documented as of this encounter Goals Goal [...] AM EDT Narrative 05/03/2024 10:18 AM EDT [place] [address] XRay Report Signed Patient: Chriss Munoz MR#: [id number] : 1955 Acct:[id number] Age/Sex: 68 / M ADM Date: 05/03/24 Loc: HO.ED Attending Dr: Ordering Physician: Flo Fleming MD Date of Service: 05/03/24 Procedure(s): XR chest 1V Accession Number(s): [id number] cc: Flo Fleming MD; Veronica Gallardo MD [...] in OV> 05/03/24 1015 DD/ 0930 TD/TT: Ebd Teacher: PD Procedure Note Donotuseinterpreter, Image - 05/03/[address] [address] XRay Report Signed Patient: Kristina MunozR#: [id number] : 1955cct:[id number] Age/Sex: 68 / MADM Date: 05/03/24 Loc: HO.ED Attending Dr: Ordering Physician: Flo Fleming MD Date of Service: 05/03/24 Procedure(s): XR chest 1V Accession Number(s): [id number] cc: Flo Fleming MD; Veronica Gallardo MD [...] in OV> 05/03/24 1015 DD/ 0930 TD/TT: Ebd Teacher: [facility] External Provider IMG XR PROCEDURES Final Result documented in this encounter Visit Diagnoses Diagnosis Hypertension, unspecified type documented in this encounter Additional Health Concerns Assessment Noted Time PHQ-9 Depression Total Score: 0 03/24/20 11:18 AM EDT documented as of this encounter Care Teams 3D Technologist Relationship Specialty Start Date End Date Veronica Gallardo MD [address] [place] [address] PCP - General Family Medicine 08/09/12 Brien Vargas, PallaviD [address] [place] [phone] Pharmacist Internal Medicine 11/30/22 Earline Quinn, RENNY [address] [place] [phone] Registered Nurse Family Medicine 07/29/25 documented as of this encounter
--- OUTSIDE RECORDS SUMMARY | 2025-09-09 11:14 | XMS_ITS | Encounter Summary ---
Author Organization [employer] Address [address] [place] [address] Care Team Providers Care Nursing Service Director Name Role Phone Veronica Gallardo MD Primary Care Provider [phone] Brien Vargas PharmD Unavailable [phone] Earline Quinn RN Unavailable [phone] Encounter Details Date Type Department Care Team (Late st Contact Info) Description 10/12/2022 Orders Only [facility] CHC MED & PEDS [address] [place], [place] [phone] Deya Barber LPN Social History Tobacco Use [...] EST Anticoagulation - Other Visit (DOAC) [facility] MEDICINE [address] [place] [phone] 10/14/2025 10:00 AM EST Medication Management [address] [phone] Brien Vargas, PharmD [address] [place], [place] [phone] 12/20/2025 10:30 AM EDT Office Visit [facility] OPTOMETRY [address] [place], [place] [phone] Flora Turner, OD [address] [place] [address] documented as of this encounter Visit Diagnoses Not on filedocumented in this encounter Care Teams Nursing Service Director Relationship Specialty Start Date End Date Veronica Gallardo MD [address] [place], [place] [phone] PCP - General Family Medicine 08/09/12 Brien Vargas, PallaviD [address] [place], [place] [phone] Pharmacist Internal Medicine 11/30/22 Earline Quinn, RENNY [address] [place] [address] [phone] Registered Nurse Family Medicine 07/29/25 documented as of this encounter
--- OUTSIDE RECORDS SUMMARY | 2025-09-09 11:15 | XMS_ITS | Clinical Summary ---
Author Organization [employer] Address [address] [place] [address] Care Team Providers Care [facility] Operations [facility] Technician Name Role Phone Veronica Gallardo MD Primary Care Provider [phone] Brien Vargas PharmD Unavailable [phone] Earline Quinn RN Unavailable [phone] Allergies Active Allergy Reactions Criticality Noted [...] OR CHEW 30 tablet 04/04/20 23 Active hydrocortisone 2.5 % cream APPLY TOPICALLY TWICE DAILY 20 g 1 02/06/20 24 Active finasteride (Proscar) 5 MG tablet Take 5 mg by mouth in the morning. 02/27/20 24 Active terazosin (Hytrin) 5 MG capsule Take 5 mg by mouth at bedtime. 03/21/20 24 Active hydrOXYzine pamoate (Vistaril) 25 MG capsule Take 1 capsule (25 mg) by mouth every 6 (six) hours if needed for itching. 60 capsule 1 06/21/20 24 Active D3 Super Strength 50 MCG (2000 UT) capsule TAKE 1 CAPSULE BY MOUTH EVERY MORNING 90 capsule 3 10/04/20 24 Active phenytoin ER (Dilantin) 100 MG capsule [...] BY COUMADIN CLINIC 60 tablet 3 5 9:43 AM EST 07/29/20 25 Active atorvastatin (Lipitor) 20 MG tablet Take 1 tablet (20 mg) by mouth at bedtime. 90 tablet 3 07/31/20 25 Active gabapentin (Neurontin) 300 MG capsuleIndicatio ns:Back pain with left-sided radiculopathy TAKE 1 CAPSULE BY MOUTH AT BEDTIME NEEDED FOR PAIN 30 capsule 1 5 9:43 AM EST 08/05/20 25 Active warfarin (Coumadin) 4 MG tablet TAKE 1 TABLET BY MOUTH EVERY DAY DIRECTED 30 tablet 3 08/27/20 25 Active docusate sodium (Colace) 100 MG capsuleIndicatio ns:Chronic idiopathic constipation TAKE 1 CAPSULE BY MOUTH TWICE DAILY 180 capsule 3 5 4:34 PM EST 09/02/20 25 Active naltrexone (Depade) 50 MG tablet TAKE 1 TABLET BY MOUTH ONCE DAILY. WITH BREAD. 30 tablet 11 09/15/20 23 025 Discontinued(M ed list cleanup (will not trigger notification to Pharmacy)) docusate sodium (Colace) 100 MG capsuleIndicatio ns:Chronic idiopathic constipation TAKE 1 CAPSULE BY MOUTH TWICE DAILY 180 capsule 1 06/12/20 24 025 Discontinued(R eorder (will not trigger notification to Pharmacy)) warfarin (Coumadin) 4 MG tablet TAKE 1 TABLET BY MOUTH EVERY DAY DIRECTED 30 tablet 3 04/29/20 025 Discontinued Hospital, Clinic, or Other Facility Administered Medication Ordered Dose Route Frequency Start Date End Date Status nitroglycerin (Nitrostat) SL tablet 0.4 mgIndications:Chest pain, unspecified type 0.4 mg SL Every 5 min PRN 08/07/2025 Active Active Problems Problem Noted Date Diagnosed Date Chronic pain of left knee 03/16/2024 Assessment & Plan (07/31/2025 3:56 PM EDT): 12/12/23 knee X-ray showed Moderate joint effusion. Mild narrowing of the lateral compartment Patient's med care manager requests a script for handheld shower / [...] that it may not be approved Patient's med care manager requests a script for handheld shower / [...] 3:50 PM EST): - followed by [facility] urology - most recent renal US in Jun 2023 - continue surveillance Non-rheumatic aortic stenosis 06/03/2023 Assessment & Plan (07/31/2025 3:41 PM EDT): - most recent transthoracic echocardiogram on 09/06/24 showed mild to moderate aortic stenosis, and possible bicuspid aortic valve - continue following up with social insurance analyst Assessment & Plan (06/03/2025 8:19 AM EDT): - most recent transthoracic echocardiogram on 09/06/24 showed mild to moderate aortic stenosis, and possible bicuspid aortic valve - continue following up with social insurance analyst Assessment & Plan (12/12/2023 3:47 PM EST): - most recent transthoracic echocardiogram on 09/05/23 showing mild-moderate aortic stenosis and trivial aortic regurgitation - continue following management recommendations by social insurance analyst Benign prostatic hyperplasia 03/28/2023 Overview (03/28/2023): -previously following with Urologist, last seen in 2017&2018 -will check PSA -will refer him back to Urologist for further evaluation Assessment & Plan (07/31/2025 3:52 PM EDT): - followed by [facility] urology, last seen in Jul 2024 - PSA has been normal level - continue terazosin and finasteride Assessment & Plan (06/03/2025 8:25 AM EDT): - followed by [facility] urology, last seen in Jul 2024 - PSA has been normal level - continue terazosin and finasteride Assessment & Plan (06/21/2024 11:09 AM EDT): - followed by [facility] urology, last seen in Nov 2023 - PSA has been normal level - continue tamsulosin Assessment & Plan (12/12/2023 3:49 PM EST): - followed by [facility] urology, last seen in Nov 2023 - PSA has been normal level - continue tamsulosin Assessment & Plan (07/15/2023 6:41 AM EDT): - previously followed by urologist, last seen in 2017 - recently seen again by [facility] urology in May 2023 [...] -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 -Due to Coumadin use, Rifampin was contraindicated. Pt was started on Isoniazid, but the treatment had to be interrupted multiple times because of elevated LFT. Pt was drinking alcohol excessively during the treatment. -His case was presented to [facility], and pt had a direct observation therapy. 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 -Due to Coumadin use, Rifampin was contraindicated. Pt was started on Isoniazid, but the treatment had to be interrupted multiple times because of elevated LFT. Pt was drinking alcohol excessively during the treatment. -His case was presented to [facility], and pt had a direct observation therapy. -He finally completed 12 weeks of 900mg INH/900mg Rifapentine/ B6 50mg on 02/14/2019 History of syphilis 11/19/2022 History of shingles 11/19/2022 Major depression 11/09/2022 Assessment & Plan (09/05/2025 12:08 AM EST): - [facility] provider : Francisco Javier Forrest - Hx suicidal ideation - Lost his in 2014 due to pancreatic cancer, and his psychosocial health worsened - Continue buspirone and mirtazapine as prescribed by psychiatarist Assessment & Plan (07/31/2025 10:54 AM EDT): - [facility] provider : Francisco Javier Forrest - Hx [...] resources at [facility] Alcohol use disorder, modera te, in early [...] PM EST): - previously followed by [facility] - reconnected with [facility] clinic [...] (07/31/2025 3:53 PM EDT): - followed by tool drawing checker, last seen in Jun 2025 - normal erythropoietin level - all other work-up has been normal - safely discharged to primary care for periodic monitoring Assessment & Plan (06/03/2025 8:25 AM EDT): - followed by tool drawing checker, last seen in Jul 2024 - normal erythropoietin level - all other work-up has been normal Assessment & Plan (06/21/2024 11:09 AM EDT): - followed by tool drawing checker, last seen in Jul 2023 - normal erythropoietin level - all other work-up has been normal Assessment & Plan (12/12/2023 3:53 PM EST): - followed by tool drawing checker, last seen in Jul 2023 - normal erythropoietin level - all other work-up has been normal Assessment & Plan (07/15/2023 6:41 AM EDT): - evaluated by tool drawing checker, last seen in January 2023 - normal erythropoietin level - all other work-up has been normal - US was ordered by tool drawing checker; advised to complete evaluation Assessment & Plan (11/19/2022 5:28 PM EST): - evaluated by tool drawing checker, last seen on 07/13/22 - normal erythropoietin level - all other work-up has been normal - most recent hematocrit 45 on 09/16/22 - US was ordered by tool drawing checker; advised to complete evaluation intermediate card tender (current) use of anticoagulants 2021 Assessment & Plan (05/31/2025 12:19 AM EDT): - indication: recurrent / chronic DVT, question of hypercoagulable disorder (elevated homocysteine) -managed by [facility] -Most recent INR-->3.4 on 03/18/23 -Current medication [...] -managed by [facility] -Most recent INR-->3.4 on 03/18/23 -Current medication [...] -managed by [facility] -Most recent INR-->3.4 on 03/18/23 -Current medication [...] aortic valve disease 11/30/2018 Assessment & Plan (09/05/2025 12:06 AM EST): -Most recent transthoracic echocardiogram on 09/06/24 showed mild to moderate aortic stenosis, and possible bicuspid aortic valve -Continue working on risk factor management -Emphasized the importance of keeping appt with social insurance analyst; pt verbalized understanding Assessment & Plan (07/31/2025 3:42 PM EDT): -Most recent transthoracic echocardiogram on 09/06/24 showed mild to moderate aortic stenosis, and possible bicuspid aortic valve -Continue working on risk factor management -Emphasized the importance of keeping appt with social insurance analyst; pt verbalized understanding Assessment & Plan (06/21/2024 11:09 AM EDT): -Most recent TTE on 09/05/23 Normal EF, mild-mod aortic stenosis and trivial aortic regurgitation with possible bicuspid aortic valve. Ascending aorta at 42 mm -Continue working on risk factor management -Emphasized the importance of keeping appt with social insurance analyst; pt verbalized understanding Assessment & Plan (12/12/2023 3:07 PM EST): -Most recent TTE on 09/05/23 Normal EF, mild-mod aortic stenosis and trivial aortic regurgitation with possible bicuspid aortic valve. Ascending aorta at 42 mm -Continue working on risk factor management -Emphasized the importance of keeping appt with social insurance analyst; pt verbalized understanding Assessment & Plan (07/15/2023 6:32 AM EDT): - Echo on 03/31/22 EF 60-65% showed severely calcified aortic valve, stenosis and mild regurgitation (in HFCCA). - Emphasized the importance of keeping appt with social insurance analyst; pt verbalized understanding Assessment & Plan (11/09/2022 11:55 AM EST): - ECHO on 03/31/22 EF 60-65% showed severely calcified aortic valve, stenosis and mild regurgitation. -Pt was discharged from previous [facility] and will send to new [facility]. Alcohol use 11/16/2018 Stage 3 chronic kidney disease (CMS/HCC) 016 Assessment & Plan (09/05/2025 12:08 AM EST): -It Sales Representative, [facility]. Last seen in Nov 2024 -09/10/16 Renal US wnl, no renal artery stenosis. -Hx elevated K with ACEI -Avoid NSAIDs / nephrotoxic drugs. -Use renal dosing. -Emphasized the importance of keeping appointment -Still waiting for microalbumin lab Assessment & Plan (07/31/2025 3:52 PM EDT): -It Sales Representative, [facility]. Last seen in Nov 2024 -09/10/16 Renal US wnl, no renal artery stenosis. -Hx elevated K with ACEI -Avoid NSAIDs / nephrotoxic drugs. -Use renal dosing. -Emphasized the importance of keeping appointment -Still waiting for microalbumin lab Assessment & Plan (06/03/2025 8:24 AM EDT): -Patient has missed several appointments with lab tester, upcoming appt -09/10/16 Renal US wnl, no renal artery stenosis. -Hx elevated K with ACEI -Avoid NSAIDs / nephrotoxic drugs. -Use renal dosing. -Emphasized the importance of keeping appt Assessment & Plan (06/21/2024 11:09 AM EDT): -Referred back to lab tester after last visit in Jul 2023 -Patient had an appointment in [facility], which was rescheduled for 01/09/24 -09/10/16 Renal US wnl, no renal artery stenosis. -Hx elevated K with ACEI -Avoid NSAIDs / nephrotoxic drugs. -Use renal dosing. -Emphasized the importance of keeping appt Assessment & Plan (12/12/2023 3:52 PM EST): -Referred back to lab tester after last visit in Jul 2023 -Patient had an appointment in [facility], which was rescheduled for 01/09/24 -09/10/16 Renal US wnl, no renal artery stenosis. -Hx elevated K with ACEI -Avoid NSAIDs / nephrotoxic drugs. -Use renal dosing. -Emphasized the importance of keeping appt Assessment & Plan (07/15/2023 6:39 AM EDT): -Followed by lab tester, last seen ? -Mildly elevated K. Monitor closely with ACEI. -09/10/16 Renal US wnl, no renal artery stenosis. -Avoid NSAIDs / nephrotoxic drugs. -Use renal dosing. -Emphasized the importance of keeping appt Assessment & Plan (03/24/2023 12:38 PM EDT): -Followed by lab tester, last seen -Currently on lisinopril 5 mg daily. -Mildly elevated K. Monitor closely with ACEI. -Most recent INR-->3.0 on 11/09/22 -09/10/16 Renal US wnl, no renal artery stenosis. -Avoid NSAIDs / nephrotoxic drugs. -Use renal dosing. Assessment & Plan (11/19/2022 6:02 PM EST): -Followed by lab tester, last seen -Currently on lisinopril 5 mg daily. -Mildly elevated K. Monitor closely with ACEI. -Most recent INR-->3.0 on 11/09/22 -09/10/16 Renal US wnl, no renal artery stenosis. -Avoid NSAIDs / nephrotoxic drugs. -Use renal dosing. Hypertension 09/02/2015 Assessment & Plan (09/05/2025 12:06 AM EST): -Goal BP < 130/80 per ACC/AHA guideline -BP not at goal. Fluctuating BP. Normal BP at the cardiology office -Comanaged with social insurance analyst, pharmD, and lab tester -Continue working on life style modifications. -Continue amlodipine 10 mg daily -Continue hydralazine 50 mg tid -(Continue terazosin 5 mg daily for BPH with LUTS) --Treatment history: -Lisinopril was decreased to 2.5 mg daily after AAYUSH with hyperkalemia secondary to renal hypoperfusion in a setting of CKD in summer 2016. Completely discontinued by lab tester -Most recent echo: 09/06/24 EF 60-65%. Mild - mod . Thoracic aortic aneurysm 4.2 cm -Consider 24-hour BP monitoring with lab tester Assessment & Plan (07/31/2025 10:47 AM EDT): -Goal BP < 130/80 per ACC/AHA guideline -BP not at goal. Fluctuating BP. Normal BP at the cardiology office -Comanaged with social insurance analyst, pharmD, and lab tester -Continue working on life style modifications. -Continue amlodipine 10 mg daily -Continue hydralazine 50 mg tid -(Continue terazosin 5 mg daily for BPH with LUTS) --Treatment history: -Lisinopril was decreased to 2.5 mg daily after AAYUSH with hyperkalemia secondary to renal hypoperfusion in a setting of CKD in summer 2016. Completely discontinued by lab tester -Most recent echo: 09/06/24 EF 60-65%. Mild - mod . Thoracic aortic aneurysm 4.2 cm -Consider 24-hour BP monitoring with lab tester Assessment & Plan (06/03/2025 8:21 AM EDT): -Goal BP < 130/80 per ACC/AHA guideline -BP at goal -Comanaged with social insurance analyst, pharmD, and lab tester -Continue working on life style modifications. -Continue amlodipine 10 mg daily -Continue hydralazine 50 mg tid -(Continue terazosin 5 mg daily for BPH with LUTS) --Treatment history: -Lisinopril was decreased to 2.5 mg daily after AAYUSH with hyperkalemia secondary to renal hypoperfusion in a setting of CKD in summer 2016. Completely discontinued by lab tester -Most recent echo: 09/06/24 EF 60-65%. Mild - mod . Thoracic aortic aneurysm 4.2 cm Assessment & Plan (06/21/2024 11:09 AM EDT): -Goal BP < 140/90 per JNC-8, < 130/80 per ACC/AHA guideline -BP not at goal , ?adherence to medication -Comanaged with social insurance analyst, pharmD, and lab tester -Continue working on life style modifications. -Continue amlodipine 10 mg daily -Continue hydralazine 50 mg tid --Treatment history: -Lisinopril was decreased to 2.5 mg daily after AAYUSH with hyperkalemia secondary to renal hypoperfusion in a setting of CKD in summer 2016. Completely discontinued by lab tester -Most recent echo: 09/05/23 EF 60-65%. Mild . Thoracic aortic aneurysm 4.2 cm - Follow up in 3 mo or sooner if any problem arises Assessment & Plan (03/13/2024 10:47 AM EDT): -Goal BP < 140/90 per JNC-8, < 130/80 per ACC/AHA guideline -BP not at goal , ?adherence to medication -Comanaged with social insurance analyst, pharmD, and lab tester -Continue working on life style modifications. -Continue amlodipine 10 mg daily -Continue hydralazine 50 mg tid --Treatment history: -Lisinopril was decreased to 2.5 mg daily after AAYUSH with hyperkalemia secondary to renal hypoperfusion in a setting of CKD in summer 2016. Completely discontinued by lab tester -Most recent echo: 09/05/23 EF 60-65%. Mild . Thoracic aortic aneurysm 4.2 cm - Follow up in 3 mo or sooner if any problem arises Assessment & Plan (12/12/2023 3:05 PM EST): -Goal BP < 140/90 per JNC-8, < 130/80 per ACC/AHA guideline -BP not at goal , ?adherence to medication -Comanaged with social insurance analyst, pharmD, and lab tester -Continue working on life style modifications. -Continue amlodipine 10 mg daily -Continue hydralazine 50 mg tid --Treatment history: -Lisinopril was decreased to 2.5 mg daily after AAYUSH with hyperkalemia secondary to renal hypoperfusion in a setting of CKD in summer 2016. Completely discontinued by lab tester -Most recent echo: 09/05/23 EF 60-65%. Mild . Thoracic aortic aneurysm 4.2 cm - Follow up in 3 mo or sooner if any problem arises Assessment & Plan (07/15/2023 6:34 AM EDT): -Goal BP < 140/90 per JNC-8, < 130/80 per ACC/AHA guideline -BP not at goal , ?adherence to medication -Comanaged with social insurance analyst, pharmD, and lab tester -Continue working on life style modifications. -Continue amlodipine 10 mg daily -Continue hydralazine 25 mg tid --Treatment history: -Lisinopril was decreased to 2.5 mg daily after AAYUSH with hyperkalemia secondary to renal hypoperfusion in a setting of CKD in summer 2016. Completely discontinued by lab tester -Most recent echo: 03/31/22 EF 60-65%. Mild [...] We need to confirm this dosing with social insurance analyst. --Treatment history: -Lisinopril was decreased to [...] We need to confirm this dosing with social insurance analyst. --Treatment history: -Lisinopril was decreased to 2.5 mg daily after AAYUSH with hyperkalemia secondary to renal hypoperfusion in a setting of CKD in summer 2016. -Most recent echo: 03/31/22 EF 60-65%. Mild . Thoracic aortic aneurysm 4.2 cm -Monitor K+ closely with Lisinopril -f/u in 2 months Ascending aortic aneurysm 12/19/2014 Assessment & Plan (09/05/2025 12:07 AM EST): -Most recent echo on 08/27/24 ascending aorta 42 mm, stable -Echo on 09/05/23 ascending aorta 42 mm, stable -Echo on 03/31/22 thoracic aorta 4.2 cm -Echo in Jun 2021 thoracic aorta 4.2 cm -Echo on 02/27/19 thoracic aorta 4.1 cm -Echo on 03/01/18 Thoracic aorta 4.0 cm -Continue working on risk factor management Assessment & Plan (07/31/2025 10:50 AM EDT): [...] factor management Dyslipidemia 08/05/2014 Assessment & Plan (09/05/2025 12:06 AM EST): - Last Lipid Profile: 04/15/25 - Current medications: Atorvastatin 20 mg qhs - Continue working on lifestyle modifications Assessment & Plan (07/31/2025 3:43 PM EDT): [...] EDT): Hx of elevated homocysteine. Evaluated by tool drawing checker for hypercoagulable disorder. Evaluation is incomplete because he was on Coumadin. He was recommended indefinite warfarin treatment. Assessment & Plan (03/28/2023 1:04 PM EDT): Hx of elevated homocysteine. Evaluated by tool drawing checker for hypercoagulable disorder. Evaluation is incomplete because he was on Coumadin. He was recommended indefinite warfarin treatment. Vitamin D deficiency 11/24/2012 Deep venous thrombosis of lower extremity 2011 Assessment & Plan (09/05/2025 12:07 AM EST): -Recurrent and chronic DVT, mostly left side -Chronic left common femoral vein -Continue warfarin -INR monitoring and warfarin dose adjustment are managed by [facility] Green team nurses -Continue following with [facility] Green team nurse for anticoagulation management Assessment & Plan (07/31/2025 10:52 AM EDT): -Recurrent and chronic DVT, mostly left side -Chronic left common femoral vein -Continue warfarin -INR monitoring and warfarin dose adjustment are managed by [facility] Green team nurses -Continue following with [facility] Green team nurse for anticoagulation management Assessment & Plan (05/31/2025 12:18 AM EDT): -Recurrent and chronic DVT, mostly left side -Chronic left common femoral vein -Continue warfarin -INR monitoring and warfarin dose adjustment are managed by [facility] Green team nurses -Most recent INR 2.3 on 06/18/23 -Continue following with [facility] Green team nurse for anticoagulation management Assessment & Plan (06/21/2024 11:08 AM EDT): -Recurrent and chronic DVT, mostly left side -Chronic left common femoral vein -Continue warfarin -INR monitoring and warfarin dose adjustment are managed by [facility] Green team nurses -Most recent INR 2.3 on 06/18/23 -Continue following with [facility] team nurse for anticoagulation management Assessment & Plan (03/13/2024 10:46 AM EDT): -Recurrent and chronic DVT, mostly left side -Chronic left common femoral vein -Continue warfarin -INR monitoring and warfarin dose adjustment are managed by [facility] Green team nurses -Most recent INR 2.3 on 06/18/23 -Continue following with [facility] Green team nurse for anticoagulation management Assessment & Plan (12/12/2023 3:04 PM EST): -Recurrent and chronic DVT, mostly left side -Chronic left common femoral vein -Continue warfarin -INR monitoring and warfarin dose adjustment are managed by [facility] Green team nurses -Most recent INR 2.3 on 06/18/23 -Continue following with [facility] Green team nurse for anticoagulation management Assessment & Plan (07/15/2023 6:37 AM EDT): -Recurrent and chronic DVT, mostly left side -Chronic left common femoral vein -Continue warfarin -INR monitoring and warfarin dose adjustment are managed by [facility] Green team nurses -Most recent INR 2.3 on 06/18/23 -Continue following with [facility] Green team nurse for anticoagulation management Assessment & Plan (03/24/2023 12:37 PM EDT): -Recurrent and chronic DVT, mostly left side -Chronic left common femoral vein -Continue warfarin -INR monitoring and warfarin dose adjustment are managed by [facility] Green team nurses -Most recent INR-->3.0 on 11/09/22 -Continue following with [facility] Green team nurse for anticoagulation management Assessment & Plan (11/19/2022 6:00 PM EST): -Recurrent and chronic DVT, mostly left side -Chronic left common femoral vein -Continue warfarin -INR monitoring and warfarin dose adjustment are managed by [facility] Leon team nurses -Most recent INR-->3.0 on 11/09/22 -Continue following with [facility] Leon team nurse for anticoagulation management Seizure disorder ([facility]) 03/23/2012 Assessment & Plan (07/31/2025 10:56 AM [...] Encounters Date Type Department Care Team Description 09/04/2025 2:00 PM EST Clinical Support [facility] [address] [place] [address] Earline Quinn, RENNY intermediate card tender (current) use of anticoagulants 09/04/2025 Travel 09/02/2025 11:00 AM EST Office Visit [facility] [address] [place] [address] Veronica Gallardo MD Hypertension, unspecified type (Primary Dx); Aneurysm of ascending aorta without rupture (CMS/HCC); Mitral and aortic valve disease; Dyslipidemia; Stage 3 chronic kidney disease, unspecified whether stage 3a or 3b CKD (CMS/HCC) (HCC); Chronic idiopathic constipation; Chronic deep vein thrombosis (DVT) of femoral vein of left lower extremity (HCC); Current severe episode of major depressive disorder without psychotic features, unspecified whether recurrent (CMS/HCC) (HCC) 09/02/2025 Travel 08/30/2025 Telephone [facility] [place] [address] [address] Maricruz Sloan MA 08/29/2025 2:30 PM EST Clinical Support [facility] [address] [place] [address] Marlyn Murdock, RENNY USP (current) use of anticoagulants 08/29/2025 Travel 08/25/2025 Refill [facility] [address] [place] [address] Josefina Cruz ANP 08/22/2025 1:00 PM EST Clinical Support [address] [address] Marlyn Murdock, RENNY USP (current) use of anticoagulants 08/22/2025 Travel 08/07/2025 9:40 AM EDT Office Visit [facility] [place] [address] [place] [address] Deya Khan DO Chest pain, unspecified type (Primary Dx) 08/07/2025 Orders Only [facility] External Provider, [facility] 08/07/2025 Travel 08/06/2025 Orders Only [address] [address] Veronica Gallardo MD Hypertension, unspecified type (Primary Dx) 08/05/[address] [address] Veronica Gallardo MD Durable Medical Equipment (DME Request: handheld shower / shower extension) 08/05/[address] [address] Veronica Glalardo MD 08/05/[address] [address] Veronica Gallardo MD Back pain with left-sided radiculopathy 08/02/2025 Telephone [facility] [place] [address] Veronica Gallardo MD Paperwork/Forms 07/31/2025 Telephone [facility] [address] Earline Quinn, RN Care Coordination 07/30/2025 9:15 AM EDT Office Visit [facility] [address] Veronica Gallardo MD Hypertension, unspecified type (Primary Dx); Stage 3 chronic kidney disease, unspecified whether stage 3a or 3b CKD (CMS/HCC) ([facility]); Alcohol use; Routine screening for STI (sexually transmitted infection); Encounter for vaccination; Encounter for immunization; Aneurysm of ascending aorta without rupture (CMS/HCC); Chronic deep vein thrombosis (DVT) of femoral vein of left lower extremity (HCC); Alcohol use disorder, moderate, in early remission (CMS/HCC) (HCC); Current severe episode of major depressive disorder without psychotic features, unspecified whether recurrent (CMS/HCC) (HCC); Depressive disorder; Chronic pain of left knee; Chronic back pain, unspecified back location, unspecified back pain laterality; Seizure disorder (CMS/HCC) (HCC); Peripheral vascular disease (CMS/HCC); Non-rheumatic aortic stenosis; Mitral and aortic valve disease; Dyslipidemia; USP (current) use of anticoagulants; Benign prostatic hyperplasia, unspecified whether lower urinary tract symptoms present; Erythrocytosis 07/30/2025 Travel 07/29/2025 Telephone [facility] [address] Veronica Gallardo MD Durable Medical Equipment 07/27/2025 Refill [facility] [place] [place] [address] Veronica Gallardo MD Back pain with left-sided radiculopathy 07/26/2025 Telephone [facility] [address] Veronica Gallardo MD fyi 07/23/2025 11:00 AM EDT Clinical Support [facility] [address] Earline Quinn RN USP (current) use of anticoagulants 07/23/2025 Travel 07/18/2025 Orders Only GENERIC EXTERNAL DATA DEPARTMENT Provider, Generic External Data 07/15/2025 Orders Only GENERIC EXTERNAL DATA DEPARTMENT Provider, Generic External Data 06/26/[address] [address] Veronica Gallardo MD Hypertension, unspecified type; Intercostal pain 06/21/2025 10:30 AM EDT Clinical Support [address] [address] Earline Quinn RN USP (current) use of anticoagulants 06/21/2025 Travel from Last 3 Months Immunizations Immunization [...] Sign Reading Time Taken Comments Blood Pressure 138/92 09/02/2025 11:05 AM EST Pulse 67 09/02/2025 11:05 AM EST Temperature 35.7 C (96.2 F) 09/02/2025 11:05 AM EST Respiratory Rate 20 09/02/2025 11:05 AM EST Oxygen Saturation 97% 09/02/2025 11:05 AM EST Inhaled Oxygen Concentration - - Weight 72.6 kg (160 lb) 09/02/2025 11:05 AM EST Height 175.3 cm (5' 9 ) 09/02/2025 11:05 AM EST Body Mass Index 23.63 09/02/2025 11:05 AM EST Plan of Treatment Upcoming Encounters Date Type Department Care Team (Latest Contact Info) Description 09/12/2025 1:30 PM EST Anticoagulation - Other Visit (DOAC) [facility] [address] [place] [address] 10/14/2025 10:00 AM EST Medication Management [facility] [address] [place] [address] Brien Vargas, PharmD [address] [place] [address] 12/20/2025 10:30 AM EDT Office Visit [facility] [address] [place] [address] Johnny, Flora, OD [address] [place] [address] Health Maintenance Due Date Last Done Comments CT Colonography 1955 Colonoscopy 1955 Colorectal Cancer Screening 1955 FIT DNA/Cologuard 1955 FIT 1955 FOBT 1955 Sigmoidoscopy 1955 COVID-19 Vaccine ( season) 2026 07/30/2025, 10/15/2024, 03/13/2024, Additional history exists Alcohol/Substance Use Screening 05/30/2026 05/30/2025 Depression Screening 05/30/2026 05/30/2025, 05/30/20 SDOH Screening 05/30/2026 05/30/2025 Tobacco Screening 09/02/2026 09/02/2025 DTaP/Tdap/Td Vaccines (3 - Td or Tdap) [...] 04/15/2025 , 06/21/2024, 03/24/2023, Additional history exists Influenza Vaccine Completed 07/30/2025, [...] 025 11:05 AM EST) No Brien Vargas, PallaviD Procedures Procedure Name Priority Date/Time Associated Diagnosis Comments POCT INR Routine 09/04/2025 9:56 AM EST USP (current) use of anticoagulants POCT INR Routine 08/29/2025 11:09 AM EST USP (current) use of anticoagulants POCT INR Routine 08/22/2025 1:41 PM EST USP (current) use of anticoagulants NM HEART PERFUSION SPECT STRESS AND REST Routine 08/09/2025 8:13 AM EDT PROTHROMBIN TIME-INR Routine 08/07/2025 4:19 PM EDT HIGH SENSITIVITY TROPONIN I Routine 08/07/2025 3:42 PM EDT ECG 12-LEAD Routine 08/07/2025 1:19 PM EDT Chest pain, unspecified type HIGH SENSITIVITY TROPONIN I Routine 08/07/2025 1:05 PM EDT XR CHEST 2 VIEWS Routine 08/07/2025 11:2 9 AM EDT POCT INR Routine 07/23/2025 10:44 AM EDT intermediate card tender (current) use of anticoagulants HIGH SENSITIVITY TROPONIN I Routine 07/18/2025 4:42 PM EDT XR CHEST 2 VIEWS Routine 07/18/2025 2:50 PM EDT PSA, TOTAL Routine 07/15/2025 10:20 AM EDT POCT INR Routine 06/21/2025 10:48 AM EDT USP (current) use of anticoagulants HEPATITIS C AB W/REFL TO HCV RNA, QN, PCR Routine 04/15/2025 9:10 AM EDT Screening for diabetes mellitus LIPID PANEL WITH REFLEX TO DIRECT LDL Routine 04/15/2025 9:10 AM EDT Dyslipidemia from Last 3 Months or Most Recently Relevant to Health Maintenance Results * POCT INR manually resulted (09/04/2025 9:56 AM EST) Only the most recent of5 resultswithin the time period is included. Protime INR 2.2 2 - 3 Blood Capillary blood specimen / Unknown 09/04/2025 9:56 AM EST Veronica Gallardo MD POINT OF CARE TEST ENTER/EDIT OR DERABLES Final Result * NM heart perfusion SPECT stress and rest (08/09/2025 8:13 AM EDT) Anatomical Region Laterality Modality Body Nuclear Medicine 08/09/2025 8:13 AM EDT Narrative 08/11/2025 1:00 PM EST [place] [address] Nuclear Medicine Report Signed Patient: Chriss Munoz MR#: [id number] : 1955 Acct:[id number] Age/Sex: 70 / M ADM Date: 08/07/25 Loc: [facility] 462-[address]: Keon Escalona MD Ordering Physician: Karri Trinidad MD Date of Service: 08/09/25 Procedure(s): NM makenzie perf SPECT rest str Accession Number(s): [id number] cc: Veronica Gallardo MD; Karri Trinidad MD Reason for Exam: Chest pain EXERCISE MYOCARDIAL PERFUSION STUDY INDICATION: Chest pain TECHNIQUE: The patient was brought in for an exercise perfusion study on 08/09/2025. Patient performed exercise as per modified Srinivas protocol and was injected 30 mCi of sestamibi once target heart rate was achieved. Images were obtained using the SPECT gamma camera interlaced with the gating device. Images were obtained in supine position. Resting perfusion study was performed on 08/09/2025. Patient was administered 10 mCi of sestamibi intravenously at rest. Images were then obtained in supine position. Total DLP 70 mGy-cm. Images were processed with the software and compared side to side in short axis, horizontal long axis and vertical long axis views. FINDINGS: Raw aquisition reviewed. The stress perfusion study showed no significant perfusion abnormality. Both uncorrected as well as CT attenuation corrected images were reviewed. The gated study shows normal LV systolic function with calculated LVEF of > 70%. LV cavity is normal in size. The gated study shows normal wall thickening and contraction of segments. Resting study shows no significant perfusion abnormality. Gating at rest reveals normal wall motion with ejection fraction at 69%. The findings are consistent with no clear reversible or fixed perfusion abnormality. NM/NM makenzie perf SPECT rest str IMPRESSION: 1. Myocardial perfusion imaging study shows normal myocardial perfusion. 2. Gated LVEF is > 70% during stress and 69% during rest. 3. Transient ischemic dilatation not present. EKG component of the test reported separately. Electronically signed by: Karri Trinidad MD 08/11/2025 12:57 PM [facility] Dictated By: Karri Trinidad MD Signed By: <Electronically signed by Karri Trinidad MD in OV> 08/11/25 1257 DD/ 0813 TD/TT: 08/09/25 1130 Autocad: Procedure Note Donotuseinterpreter, Image - 08/11/2025 [place] [address] Nuclear Medicine Report Signed Patient: Lenard Munoz#: [id number] : 1955cct:[id number] Age/Sex: 70 / MADM Date: 08/07/25 Loc: [facility] 462-[address]: Keon Escalona MD Ordering Physician: Karri Trinidad MD Date of Service: 08/09/25 Procedure(s): NM makenzie perf SPECT rest str Accession Number(s): [id number] cc: Veronica Gallardo MD; Karri Trinidad MD Reason for Exam: Chest pain EXERCISE MYOCARDIAL PERFUSION STUDY INDICATION: Chest pain TECHNIQUE: The patient was brought in for an exercise perfusion study on 08/09/2025. Patient performed exercise as per modified Srinivas protocol and was injected 30 mCi of sestamibi once target heart rate was achieved. Images were obtained using the SPECT gamma camera interlaced with the gating device. Images were obtained in supine position. Resting perfusion study was performed on 08/09/2025. Patient was administered 10 mCi of sestamibi intravenously at rest. Images were then obtained in supine position. Total DLP 70 mGy-cm. Images were processed with the software and compared side to side in short axis, horizontal long axis and vertical long axis views. FINDINGS: Raw aquisition reviewed. The stress perfusion study showed no significant perfusion abnormality. Both uncorrected as well as CT attenuation corrected images were reviewed. The gated study shows normal LV systolic function with calculated LVEF of > 70%. LV cavity is normal in size. The gated study shows normal wall thickening and contraction of segments. Resting study shows no significant perfusion abnormality. Gating at rest reveals normal wall motion with ejection fraction at 69%. The findings are consistent with no clear reversible or fixed perfusion abnormality. NM/NM makenzie perf SPECT rest str IMPRESSION: 1. Myocardial perfusion imaging study shows normal myocardial perfusion. 2. Gated LVEF is > 70% during stress and 69% during rest. 3. Transient ischemic dilatation not present. EKG component of the test reported separately. Electronically signed by: Karri Trinidad MD 08/11/2025 12:57 PM [facility] Dictated By: Karri Trinidad MD Signed By: <Electronically signed by Karri Trinidad MD inOV> 08/11/25 1257 DD/ 0813 TD/TT: 08/09/25 1130 Autocad: [facility] External Provider IMG NM PROCEDURES Edited Result - Final * (ABNORMAL) Prothrombin Time-INR (08/07/2025 4:19 PM EDT) Prothrombin Time 40.7(H) 10.9 - 12.4 SEC [facility] INTERNATIONAL NORM RATIO 3.5(H) 0.9 - 1.1 [facility] Comment:INTERNATIONAL NORMAL IZED RATIO (INR) REFERENCE RANGES Reference RangeFor patients not on anticoagulant therapy: 0.9 - 1.1INR ranges for oral anticoagulanttherapy:For prevention and treatment of venous thrombosis and pulmonary embolism: 2.0 - 3.0For acute myocardial infarction with aspirin therapy: 2.0 - 3.0For acute myocardial infarction without aspirin therapy: 3.0 - 4.0For patients with mechanical prosthetic heart valves: 2.5 - 3.5 08/07/2025 4:19 PM EDT 08/07/2025 4:27 PM EDT Generic External Data Provider LAB BLOOD ORDERAB LES Final Result Performing Organization Address [facility] de Phone Number [facility] [address] [place] [phone] * High Sensitivity Troponin I (08/07/2025 3:42 PM EDT) Only the most recent of3 resultswithin the time period is included. Pathologist [facility] TROPONIN I HIGH SENSITIVITY 22.7 <3.5 - 35.0 ng/L [facility] Comment:The [place] high sens itivity Troponin-I results should beused in conjunction with other diagnostic information suchas ECG, clinical observations and information, and patientsymptoms to aid in the diagnosis of ID. 08/07/2025 3:42 PM EDT 08/07/2025 3:44 PM EDT us Generic External Data Provider LAB BLOOD ORDERAB LES Final Result Performing Organization Address [facility] Phone Number [facility] [address] [place] [phone] * ECG 12 lead (08/07/2025 1:19 PM EDT) Narrative Deya Khan DO - 08/07/2025 1:19 PM EDT NSR @ 62 bmp, nml axis/intervals, no Q waves, no ST depression/elevation, TWF aVL us Deya Khan DO ECG ORDERABLES Final Result * XR Chest 2 Views (08/07/2025 11:29 AM EDT) Only the most recent of2 resultswithin the time period is included. Anatomical Region Laterality Modality Chest Radiographic Svitlana ging 08/07/2025 11:2 9 AM EDT Narrative 08/07/2025 11:39 AM EDT [address] [address] XRay Report Signed Patient: Chriss Munoz MR#: [id number] : 1955 Acct:[id number] Age/Sex: 70 / M ADM Date: 08/07/25 Loc: .ED Attending Dr: Ordering Physician: Jc Lehman MD Date of Service: 08/07/25 Procedure(s): XR chest 2V Accession Number(s): [id number] cc: Jc Lehman MD; Veronica Gallardo MD [...] 08/07/25 1136 DD/ 1129 TD/TT: 08/07/25 1134 Autocad: Procedure Note Donotuseinterpreter, Image - 08/07/2025 [facility] [address] [place] [id number] XRay Report Signed Patient: Kristina MunozR#: [id number] : 1955cct:[id number] Age/Sex: 70 / MADM Date: 08/07/25 Loc: HO.ED Attending Dr: Ordering Physician: Jc Lehman MD Date of Service: 08/07/25 Procedure(s): XR chest 2V Accession Number(s): [id number] cc: Jc Lehman MD; Veronica Gallardo MD [...] 08/07/25 1136 DD/ 1129 TD/TT: 08/07/25 1134 Autocad: us [facility] External Provider IMG XR PROCEDURES Final Result * PSA,Total (07/15/2025 10:20 AM EDT) Prostate Specific Antigen 2.82 <0.05 - 4.0 ng/mL [facility] Comment:PSA methodology: Shanika Beck i ChemiluminescentMicroparticle Immunoassay (CMIA) 07/15/2025 10:2 0 AM EDT 07/15/2025 10:20 AM EDT Generic External Data Provider LAB BLOOD ORDERAB LES Final Result [facility] [address] [place] [phone] * Lipid Panel with Reflex to Direct LDL (04/15/2025 9:10 AM EDT) Triglycerides 107 <150 mg/dL [facility] Comment:Desirable Triglyceri de: less than 150 mg/dLBorderline High Triglyceride 150-199 mg/dLHigh Triglyceride: 200-499 mg/dLVery High Triglyceride: greater than or equal to 5OO mg/dL Cholesterol 168 <200 mg/dL [facility] Comment:Desirable Cholestero l: less than 200 mg/dLBorderline High Cholesterol: 200-239 mg/dLHigh Cholesterol: greater than 239 mg/dL LDL Cholesterol Calculated 91 <100 mg/dL [facility] Comment:Desirable LDL: less than 100 mg/dLNear Optimal/Above Optimal LDL: 110- 129 mg/dLBorderline High LDL: 130-159 mg/dLHigh LDL: 160-189 mg/dLVery High LDL: greater than or equal to 190 mg/dL HDL Cholesterol 56 >40 mg/dL [facility] Comment:Desirable HDL: great er than 40 mg/dL Note: This HDL assay may give artificially low results in patients with liver disease. Blood 04/15/2025 9:10 AM EDT 04/15/2025 11:17 AM EDT Veronica Gallardo MD LAB BLOOD ORDERABLES Final Resul t Performing Organization Address City/[facility] Co de Phone Number [facility] [address] [place] [phone] * Hepatitis C Antibody with Reflex to HCV, RNA, Quantitative, Real-Time PCR (04/15/2025 9:10 AM EDT) Hepatitis C Antibody Nonreactive Nonreactive [facility] Comment:Antibodies to HCV no t detected; does not exclude early acuteHCV infection. Venous blood specimen / Unknown 04/15/2025 9:10 AM EDT 04/15/2025 11:17 AM EDT Veronica Gallardo MD LAB BLOOD ORDERABLES Final Resul t Performing Organization Address City/[facility]/ZIP Co de Phone Number [facility] [address] [place] [phone] from Last 3 Months or Most Recently Relevant to Health Maintenance Insurance [facility] ASS[employer]ED OPTIONS (HMO D-SNP) [place]SE [place]APIA [id number] Care Teams Network Operations Center Technician Relationship Specialty Start Date End Date Veronica Gallardo MD [address] [place] [address] PCP - General Family Medicine 08/09/12 Brien Vargas, PharmD [address] [place] [address] Pharmacist Internal Medicine 11/30/22 Earline Quinn, RN [address] [place] [address] Registered Nurse Family Medicine 07/29/25
[2025-09-09 11:19] LABS: Prostate Specific Antigen 2.38 ng/mL (<0.05-4.0)
[2025-09-09 11:24] LABS: Syphilis Screen Nonreactive (Nonreactive)
[2025-09-09 11:27] LABS: HBS Num1 2.20 mIU/mL (0-7.99); HBc Num1 0.06 S/CO (0.00-0.79); HBsAGNum1 0.29 S/CO (0.00-0.99); HIV Num 1 0.06 S/CO (0.00-0.99); Hepatitis B Surface Antigen Negative (Negative); ~HepC Num1 0.13 S/CO (0.00-0.79); ~Hepatitis B Surface Antibody NONREACTIVE (Nonreactive); ~Hepatitis C Antibody Nonreactive (Nonreactive)
[2025-09-09 11:58] LABS: Microalbum/Creatinine Ratio Ur 325.6 ug/mg cr (<30)
== END 2025-09-09 09:31 | disposition home or self-care (01) ==
LOC: HO.LAB 09:30
PROVIDERS: PCP Family Medicine; Visit Provider Nurse Practitioner Family
DX: Z12.5 Encounter for screening for malignant neoplasm of prostate (principal); I10 Essential (primary) hypertension; Z11.4 Encounter for screening for human immunodeficiency virus [HIV]; Z11.3 Encounter for screening for infections with a predominantly sexual mode of transmission
CPT/HCPCS: 36415; 82043; 82570; 84153; 86704; 86706; 86780; 86803; 87340; 87389

== ENCOUNTER 2025-09-16 11:25 | Outpatient (AMB) | payer OTHER, SELFPAY ==
--- NOTE | 2025-09-16 11:29 | A.OFFVIS_ITS ---
Intake Visit Reasons: 6m/PSA/PVR/UA/SET Intake Note: Patient presents for follow up visit for 6 month follow up/PVR. Urology Medications: terazosin, finasteride, VITB1 Blood Thinner: warfarin Labs done : 09/09/25 PSA 2.38 No abx allergy PVR:47 ml [employer] Required: Yes [employer] Services: [employer] Present [employer] Name: Grace [id number] Accompanied by: Self / Same As Patient Allergies ibuprofen (From Motrin) Allergy (Intermediate, Verified 09/16/25 11:53) Unknown acetaminophen (From Percocet) Allergy (Verified 09/16/25 11:53) Unknown oxycodone Allergy (Verified 09/16/25 11:53) Unknown Medication List - Last Reconciled 09/16/25 by LAURY Hernandez- acetaminophen 650 mg PO Q8H PRN amlodipine 10 mg PO BEDTIME atorvastatin 20 mg PO BEDTIME buspirone 30 mg PO BID cholecalciferol (vitamin D3) (Vitamin D3) 50 mcg PO DAILY clobetasol 0.05% 1 appl topical BID docusate sodium 100 mg PO BID finasteride 5 mg PO DAILY 90 days folic acid 1 mg PO DAILY gabapentin 300 mg PO BEDTIME PRN gabapentin 300 mg PO BEDTIME hydralazine 50 mg PO TID hydroxyzine pamoate (Vistaril) 25 mg PO Q6H PRN loratadine 10 mg PO DAILY mirtazapine 45 mg PO BEDTIME naltrexone 50 mg PO DAILY omeprazole 20 mg PO DAILY@0630 phenytoin sodium extended 300 mg PO DAILY terazosin 5 mg PO BEDTIME 90 days thiamine HCl (vitamin B1) 100 mg PO DAILY warfarin 2 mg PO MO@1800 warfarin 4 mg PO SUTUWETHFRSA@1800 HPI Comments Details: Chriss is a 70-year-old Portuguese-speaking male patient of Dr. Gallardo. He has a past medical history of alcohol abuse, aortic aneurysm, chronic anticoagulation, chronic kidney disease, depression, DVT, GERD, hemorrhoids, mood disorder, PVD, and seizures. He presents to the office today for follow-up of his lower urinary tract symptoms. In discussion with the patient today he reports to be doing and feeling well. He reports compliance with terazosin and finasteride as prescribed. He denies having had any bothersome urinary issues or concerns since his last office visit here. Previous workup has included a retroperitoneal ultrasound 07/02 noting right kidney with no calculi or hydronephrosis. There is lower pole laterally 0.8 x 0.6 x 0.7 cm cortical cyst. 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 Left kidney with no calculi or hydronephrosis. There are 3 cysts identified laterally 1.7 x 1.8 x 1.5 cm and laterally in the upper pole 1.5 x 1.2 x 1.5 cm, there is 1.6 x 1.6 x 1.7 cm cyst in the middle aspect of the cortex. The urinary bladder is well distended with trabeculated wall. Bilateral ureteral jets are demonstrated. Pre void bladder volume is approximately 240 mL. Postvoid bladder volume is approximately 20 mL. Prostate volume is approximately 30 mL. In office urinalysis results reviewed with the patient today. PVR 47mLs. He otherwise denies incontinence, nocturia, hematuria, dysuria, foul-smelling urine, flank pain, fever, and or chills. PSAs are as follows: 08/29 3.0, 12/03 3.6, 07/03 1.9, 08/02 1.7 , 05/03 2.8, 08/03 2.8, 10/03 2.4 PFSH Medical History Ascending aortic aneurysm Colon cancer screening Hemorrhoid Aortic aneurysm GERD (gastroesophageal reflux disease) Chronic anticoagulation Alcohol abuse Mood disorder Mood disorder due to a general medical condition Peripheral vascular disease DVT (deep venous thrombosis) Hyperhomocysteinemia CKD (chronic kidney disease) Depression Seizure Surgical History Hx of colonoscopy Hx of hernia repair Family History Paternal Grandmother Cancer Maternal Grandfather Cancer Paternal Aunt Cancer Social History Household Members: None Housing: Apartment Are you a primary manager progressive care to a significant other at home: No Do you presently have visiting nurse or other home services: No Alcohol intake: current Alcohol intake frequency: does not drink Alcohol type: beer Patient Tobacco Use Status: Never used Tobacco Advance Directives Date on File: 10/01/20 service: No Current occupational status: disabled Review of Systems Const All systems reviewed & are unremarkable except as noted in HPI and below Reports as per HPI Eyes Reports no additional complaints ENT Reports no additional complaints Card Reports as per HPI Resp Reports no additional complaints GI Reports as per HPI Reports as per HPI Musc Reports no additional complaints Neuro Reports as per HPI Psych Reports as per HPI Endo Reports as per HPI Patrick/Lymph Reports as per HPI Physical Exam Const General: cooperative, healthy appearing, comfortable, no acute distress, well developed, alert and awake Nutritional Appearance: average body habitus Orientation/consciousness: patient oriented x3 Limitations: no limitations HEENT Head: Yes normal to inspection, Yes normocephalic and Yes atraumatic Ears: hearing grossly normal bilaterally Eyes General: appearance normal, both eyes and all related structures Neck Neck: Yes normal visual inspection and Yes trachea midline Chest Chest palpation & inspection: normal inspection of the chest Resp Effort & Inspection: normal respiratory effort and able to speak in complete sentences Cardio Rate: regular rate GI Inspection: Yes normal to inspection Rectal Exam - Male: Yes deferred General: Yes no CVA tenderness Back/Spine/Pelvis Back: no CVA tenderness Skin General skin exam: no rashes or lesions noted Neuro General: patient oriented x3 Extrem General: Yes normal to inspection Psych Appearance: grossly normal and well kempt Mental Status: mental status grossly normal Speech and movement: Normal speech and movement present and Clear speech present Affect: normal affect Attitude: cooperative Thought process: Normal thought process present Thought content: Normal thought content present Insight: Fair insight present (Psych) Judgement: Fair judgement present (Psych) Office Procedures Post Void Residual Post Residual Void Post Void Residual (PVR): 47 [id number] Void Residual by ultrasound Results AMB Urinalysis, Automated UA Leukoctes 0 Briana/uL Last Edit by DESTINY Ragland on 09/16/25 11:36 UA Nitrite Negative Last Edit by DESTINY Ragland on 09/16/25 11:36 UA Urobilinogen 0.2 mg/dL Last Edit by Mary Colon, [facility] on 09/16/25 11:36 UA Protein 15 mg/dL Last Edit by Mary Colon, [facility] on 09/16/25 11:36 UA pH 6.0 Last Edit by Mary Colon, [facility] on 09/16/25 11:36 UA Blood 0 Daniel/uL Last Edit by Mary Colon, [facility] on 09/16/25 11:36 UA Specific Rocklin 1.010 Last Edit by Mary Colon, [facility] on 09/16/25 11:3 6 UA Ketone Negative Last Edit by Mary Colon, [facility] on 09/16/25 11:36 UA Bilirubin 0 mg/dL Last Edit by Mary Colon, [facility] on 09/16/25 11:36 UA Glucose 0 mg/dL Last Edit by Mary Colon, [facility] on 09/16/25 11:36 Results Reviewed Results Reviewed: Laboratory Last Values Urine pH (Auto) 6.0 09/16/25 11:35 Specific Rocklin (Auto) 1.010 09/16/25 11:35 Urine Protein (Auto) 15 mg/dL 09/16/25 11:35 Glucose (UA)(Auto) 0 mg/dL 09/16/25 11:35 Urine Ketones (Auto) Negative 09/16/25 11:35 Urine Blood (Auto) 0 Daniel/uL 09/16/25 11:35 Urine Nitrite (Auto) Negative 09/16/25 11:35 Urine Bilirubin (Auto) 0 mg/dL 09/16/25 11:35 Urine Urobilinogen (Auto) 0.2 mg/dL 09/16/25 11:35 Leukocyte Esterase (Auto) 0 Briana/uL 09/16/25 11:35 Assessment & Plan Assessment & Plan (1) Urinary frequency: Code(s): R35.0 - Frequency of micturition Category: Medical (2) Bladder trabeculation: Code(s): N32.89 - Other specified disorders of bladder Category: Medical (3) Renal cyst: Code(s): N28.1 - Cyst of kidney, acquired Category: Medical (4) Incomplete bladder emptying: Code(s): R33.9 - Retention of urine, unspecified Category: Medical Plan In office urinalysis results reviewed with the patient today; as noted above. PVR 47 mL. He currently denies any bothersome urinary issues or concerns. He reports be happy with current voiding parameters. Continue terazosin and finasteride as prescribed. Will continue with surveillance monitoring. Follow-up in 6 months with PSA and PVR; or sooner with any issues, concerns, and or questions. Orders: Orders Prostate Specific Antigen 09/09/25 Z12.5 - Encounter for screening for malignant neoplasm of prostate AMB Urinalysis Automated Today N13.8 - Other obstructive and reflux uropathy, N40.1 - Benign prostatic hyperplasia with lower urinary tract symptoms AMB Post Void Residual by ultrasound Today N40.1 - Benign prostatic hyperplasia with lower urinary tract symptoms Patient Instructions: The patient had an opportunity to ask questions regarding the treatment plan. All questions were answered. Physical exam, labs, and imaging were discussed and reviewed in detail. As well as risks, benefits, and discussion of treatment choices. No major barriers to understanding were identified. The patient expressed understanding and agreement with the above treatment plan. The patient was made aware they should contact our office by phone for worsening of their current condition, the appearance of new symptoms, or with any questions or concerns. Compliance is encouraged with any medications and follow up testing that is ordered. It is a privilege to be allowed the opportunity to participate in? your urological care.? Again, if you have any questions or concerns If you have any questions or concerns please do not hesitate to contact me. The office is [phone]. This note is constructed using voice recognition software. While every effort has been made to ensure accuracy hydraulic miner errors may have been included. Yours sincerely, MARCIA Hernandez Coding Level of Care Code Est Pt Level 3 (17822) Complex visit Add On G2211 Diagnoses Urinary frequency R35.0 Bladder trabeculation N32.89 Renal cyst N28.1 Incomplete bladder emptying R33.9 CPT Codes Post Residual Void - PVR CPT Code: 57951-Fwze Void Residual by ultrasound ([id number])
== END 2025-09-16 12:04 | disposition home or self-care (01) ==
LOC: HO.HUSH 11:26
PROVIDERS: PCP Family Medicine; Visit Provider Nurse Practitioner Family
DX: R35.0 Frequency of micturition (principal); N32.89 Other specified disorders of bladder; N28.1 Cyst of kidney, acquired; R33.9 Retention of urine, unspecified; N40.1 Benign prostatic hyperplasia with lower urinary tract symptoms; N13.8 Other obstructive and reflux uropathy
CPT/HCPCS: 99213; G2211

== ENCOUNTER → 2025-09-16 11:25 | Outpatient (BNVA) | payer OTHER, SELFPAY | PROVIDERS: PCP Family Medicine; Visit Provider Nurse Practitioner Family | DX: N40.1 Benign prostatic hyperplasia with lower urinary tract symptoms (principal); N32.89 Other specified disorders of bladder; N13.8 Other obstructive and reflux uropathy; N28.1 Cyst of kidney, acquired; R35.0 Frequency of micturition; Z12.5 Encounter for screening for malignant neoplasm of prostate; R33.9 Retention of urine, unspecified; Z79.899 Other long term (current) drug therapy | CPT/HCPCS: 51798; 81003; 99212 ==

== ENCOUNTER 2025-09-23 10:45 | Outpatient (REF) | payer OTHER, SELFPAY ==
--- NOTE | ~2025-09-23 | US_ITS ---
EXAMINATION: US LOWER EXTREMITY VENOUS (REFLUX EXAM), BILATERAL CLINICAL INFORMATION: Varicose veins of the lower extremity with inflammation, venous incompetence COMPARISON: January 04, 2024 TECHNIQUE: Color flow triplex imaging and compression Doppler was performed to evaluate both the deep and the superficial systems bilaterally. To evaluate the superficial system, the examination was performed in the upright position. Color-flow Doppler ultrasound and compression ultrasound were utilized. In addition, maneuvers were utilized to demonstrate reflux. FINDINGS: 1. DEEP VENOUS ULTRASOUND OF THE RIGHT LOWER EXTREMITY: Common Femoral Vein: Compressible, normal respiratory variation and augmented flow. Femoral Vein: Compressible, normal color flow and augmentation. Popliteal Vein: Compressible, normal augmentation. Deep Reflux: There is no evidence of reflux in the deep system in either the common femoral vein, superficial femoral or the popliteal vein. 2. SUPERFICIAL ULTRASOUND WITH DOPPLER OF RIGHT LOWER EXTREMITY: GREAT SAPHENOUS VEIN: Saphenofemoral Junction: 0.6 cm; Reflux: 0 ms Proximal Thigh: 4 cm; Reflux: 0 ms Mid Thigh: 0.3 cm; Reflux: 0 ms Distal Thigh: 0.3 cm; Reflux: 0 ms At Knee: 0.3 cm; Reflux: 0 ms Below Knee/Proximal Calf: 0.2 cm; Reflux: 0 ms Mid Calf: 0.3 cm; Reflux: 1900 ms Ankle/Distal Calf: 0.3 cm; Reflux: 0 ms Lateral accessory GREAT SAPHENOUS VEIN: None SMALL SAPHENOUS VEIN: Drainage: Thigh extension Saphenopopliteal Junction: 0.2 cm; Reflux: 0 ms Mid calf: 0.2 cm; Reflux: 0 ms Distal: 0.2 cm; Reflux: 0 ms VEIN OF GIACOMINI: Size: 0.2 cm Reflux: 0 ms PERFORATORS: Location: Greater saphenous vein, proximal thigh Size: 0.2 cm Reflux: 0 ms Location: Greater saphenous vein, proximal calf Size: 0.2 cm Reflux: 0 ms VARICOSITIES > 3mm: Location: None Imaged 3. DEEP VENOUS ULTRASOUND OF THE LEFT LOWER EXTREMITY: Common Femoral Vein: There is mixed echogenicity material along the deep wall. The vessel is partially compressible. There is flow on color Doppler. Femoral Vein: Linear echogenic bands are visible within the vessel. The vessel is partially compressible with flow. Popliteal Vein: There is an echogenic band in the vessel. The vessel is partially compressible with flow. Similar findings were present on the prior. Deep Reflux: There is no evidence of reflux in the deep system in either the common femoral vein, superficial femoral or the popliteal vein. 4. SUPERFICIAL ULTRASOUND WITH DOPPLER OF LEFT LOWER EXTREMITY: GREAT SAPHENOUS VEIN: Saphenofemoral Junction: 0.4 cm; Reflux: 0 ms Proximal Thigh: 0.5 cm; Reflux: 0 ms Mid Thigh: 0.5 cm; Reflux: >2400 ms Distal Thigh: 0.5 cm; Reflux: >2200 ms At Knee: 0.5 cm; Reflux: 1500 ms Below Knee/Proximal Calf: 0.4 cm; Reflux: 1850 ms Mid Calf: 0.2 cm; Reflux: 0 ms Ankle/Distal Calf: 0.3 cm; Reflux: 0 ms Lateral accessory GREAT SAPHENOUS VEIN: Saphenofemoral Junction: 0.3 cm; Reflux: 0 ms Mid Thigh: 0.3 cm; Reflux: 0 ms SMALL SAPHENOUS VEIN: Drainage: thigh extension Saphenopopliteal Junction: 0.2 cm; Reflux: 0 ms Mid calf: 0.2 cm; Reflux: 0. ms Distal calf: 0.3 cm; Reflux: 0 ms VEIN OF GIACOMINI: Size: 0.2 Reflux: 0 PERFORATORS: Location: Greater saphenous vein, proximal calf Size: 0.3 cm Reflux: 0 ms VARICOSITIES > 3mm: Location: Accessory saphenous vein, mid Size: 0.3 cm Reflux: 0 ms Location: Great saphenous vein, at knee Size: 0.3 cm Reflux: 0 ms US/US venous duplex LE IMPRESSION: Right: Venous incompetence is demonstrated in the greater saphenous vein, midcalf Left: Extensive nonocclusive chronic DVT is similar to the prior in December 2023 Venous incompetence is demonstrated in the greater saphenous vein from the mid thigh through the proximal calf Electronically signed by: Umesh Franklin MD 09/23/2025 02:02 PM EST
--- OUTSIDE RECORDS SUMMARY | 2025-09-23 14:55 | XMS_ITS | Encounter Summary ---
Author Organization [facility] Address [address] 7t [place] [address] Care Team Providers Care Chorus Master Name Role Phone Veronica Gallardo MD Primary Care Provider Brien Vargas PharmD Unavailable [phone] Earline Quinn RN Unavailable [phone] Encounter Details Date Type Department Care Team (Late st Contact Info) Description 06/27/2023 Telephone [facility] [address] [place] [address] [phone] Veronica Gallardo MD [address] [place] [address] [phone] Social History Tobacco Use Types Packs/Day Years [...] Care Team (Late st Contact Info) Description 10/14/2025 10:00 AM EST Medication Management [facility] [address] [place] [phone] Brien Vargas, PharmD [address] [place], [place] [phone] 12/20/2025 10:30 AM EDT Office Visit [facility] [address] [place] [address] Flora Turner, OD [address] [place] [address] documented as of this encounter Goals Goal [...] documented as of this encounter Care Teams Chorus Master Relationship Specialty Start Date End Date Veronica Gallardo MD [address] [place] [address] PCP - General Family Medicine 08/09/12 Brien Vargas, PharmD [address] [place], [place] [phone] Pharmacist Internal Medicine 11/30/22 Earline Quinn, RN [address] [place] [address] Registered Nurse Family Medicine 07/29/25 documented as of this encounter
--- OUTSIDE RECORDS SUMMARY | 2025-09-23 14:55 | XMS_ITS | Encounter Summary ---
Author Organization [employer] [facility] Address [address] 7t [place] [address] Care Team Providers Care Hunter Trapper Name Role Phone Veronica Gallardo MD Primary Care Provider [phone] Brien Vargas PharmD Unavailable [phone] Earline Quinn RN Unavailable [phone] Reason for Referral * Consultation (Routine) - Authorized Specialty Diagnoses / Procedures Referred By Joseph alvarado Referred To Contact Pharmacy Diagnoses Hypertension, unspecified type Veronica Gallardo MD [address] [place] [phone] Phone: tel: fax: Referral ID Status Reason Start Date Expiration Date Visits Requested Visits Authorized [id number] Authorized Consult and Treat 08/06/2025 08/06/2026 6 6 Encounter Details Date Type Department Care Team (Late st Contact Info) Description 08/06/2025 Orders Only [facility] [address] [place] [phone] Veronica Gallardo MD [address] [place] [address] [phone] Hypertension, unspecified type (Primary Dx) Social History [...] Description 10/14/2025 10:00 AM EST Medication Management [facility] [address] [place] [address] Brien Vargas, PharmD [address] [place] [address] 12/20/2025 10:30 AM EDT Office Visit [facility] [address] [place], [place] [phone] Flora Turner, OD [address] [place] [address] Scheduled Referrals Name Type Priority Associated Diagnoses [...] documented as of this encounter Care Teams Hunter Trapper Relationship Specialty Start Date End Date Veronica Gallardo MD [address] [place] [address] PCP - General Family Medicine 08/09/12 Brien Vargas, PharmD [address] [place], [place] [phone] Pharmacist Internal Medicine 11/30/22 Earline Quinn, RENNY [address] [place] [address] Registered Nurse Family Medicine 07/29/25 documented as of this encounter
--- OUTSIDE RECORDS SUMMARY | 2025-09-23 14:55 | XMS_ITS | Encounter Summary ---
Author Organization [facility] Address [address] 7t [place] [address] Care Team Providers Care Fast Food Assistant Restaurant Manager Name Role Phone Veronica Gallardo MD Primary Care Provider [phone] Brien Vargas PharmD Unavailable [phone] Earline Quinn RN Unavailable [phone] Reason for Visit * Reason Comments Med Refill Encounter Details Date Type Department Care Team ([facility] Contact Info) Description 01/14/[address] [facility] [address] [place] [phone] Estefania Gilbert MD [address] [place] [address] [phone] Social History Tobacco Use Types Packs/Day Years [...] Department Care Team (Late Contact Info) Description 10/14/2025 10:00 AM EST Medication Management [facility] [address] [place] [address] [phone] Brien Vargas, PharmD [address] [place], [place] [phone] 12/20/2025 10:30 AM EDT Office Visit [facility] [address] [place] [address] Flora Turner, OD [address] [place] [address] documented as of this encounter Goals Goal Patient Goal Type Associated Problems Recent Progress Patient-Stated? Author Blood Pressure < 140/90 Blood Pressure 138/92( 025 11:05 AM EST) No Brien Vargas PharmD documented as of this encounter Visit Diagnoses Not on filedocumented in this encounter Care Teams Fast Food Assistant Restaurant Manager Relationship Specialty Start Date End Date Veronica Gallardo MD [address] [place], [place] [phone] PCP - General Family Medicine 08/09/12 Brien Vargas, PharmD [address] [place] [address] [phone] Pharmacist Internal Medicine 11/30/22 Earline Quinn, RENNY [address] [place] [address] [phone] Registered Nurse Family Medicine 07/29/25 documented as of this encounter
--- OUTSIDE RECORDS SUMMARY | 2025-09-23 14:55 | XMS_ITS | Encounter Summary ---
Author Organization [employer] Address [address] [place] [address] Care Team Providers Care Engineer Name Role Phone Veronica Gallardo MD Primary Care Provider [phone] Brien Vargas PharmD Unavailable [phone] Earline Quinn RN Unavailable [phone] Reason for Visit * Reason Comments Med Refill Encounter Details Date Type Department Care Team (Late st Contact Info) Description 08/14/[address] [facility] [address] [place], [place] [phone] Brien Vargas, PharmD [address] [place], [place] [phone] Essential hypertension Social History Tobacco Use Types [...] PharmD - 08/23/2023 11:57 AM EST [facility] will send 1 month fill of hydralazine 25 mg PO TID. Patient rescheduled last cardiology and nephrology visits. Needs to keep upcoming CD[facility] visit 09/09/2023. documented in this encounter Plan of Treatment Upcoming Encounters Date Type Department Care Team (Late st Contact Info) Description 10/14/2025 10:00 AM EST Medication Management [facility] [address] [place] [address] Brien Vargas PharmD [address] [place] [address] 12/20/2025 10:30 AM EDT Office Visit [facility] [address] [place] [address] Flora Turner, OD [address] [place] [address] documented as of this encounter Goals Goal [...] documented as of this encounter Care Teams Engineer Relationship Specialty Start Date End Date Veronica Gallardo MD [address] [place], [place] [phone] PCP - General Family Medicine 08/09/12 Brien Vargas, PallaviD [address] [place], [place] [phone] Pharmacist Internal Medicine 11/30/22 Earline Quinn, RENNY [address] [place], [place] [phone] Registered Nurse Family Medicine 07/29/25 documented as of this encounter
--- OUTSIDE RECORDS SUMMARY | 2025-09-23 14:55 | XMS_ITS | Encounter Summary ---
Author Organization [employer] Address [address] [place] [address] Care Team Providers Care Rehabilitation Technician Name Role Phone Veronica Gallardo MD Primary Care Provider [phone] Brien Vargas PharmD Unavailable [phone] Earline Quinn RN Unavailable [phone] Encounter Details Date Type Department Care Team (Late st Contact Info) Description 11/04/2023 Orders Only [facility] [address] [place], [place] [phone] Veronica Gallardo MD [address] [place], [place] [phone] Alcohol use disorder, moderate, in early remission [...] Description 10/14/2025 10:00 AM EST Medication Management [facility] [address] [place] [address] Brien Vargas, PharmD [address] [place] [address] 12/20/2025 10:30 AM EDT Office Visit [facility] [address] [place] [address] Johnny, Flora, OD [address] [place] [address] documented as of this encounter Goals Goal Patient Goal Type Associated Problems Recent Progress Patient-Stated? Author Blood Pressure < 140/90 Blood Pressure 138/92( 025 11:05 AM EST) No Brien Vargas, Efrain documented as of this encounter Visit Diagnoses Diagnosis Alcohol use disorder, moderate, in early remission (CMS/HCC) ([facility])- Primary documented in this encounter Additional Health Concerns Assessment Noted Time PHQ-9 Depression Total Score: 0 03/24/20 23 11:18 AM EDT documented as of this encounter Care Teams Rehabilitation Technician Relationship Specialty Start Date End Date Veronica Gallardo MD [address] [place] [phone] PCP - General Family Medicine 08/09/12 Brien Vargas, PallaviD [address] [place] [phone] Pharmacist Internal Medicine 11/30/22 Earline Quinn RN [address] [place] [address] Registered Nurse Family Medicine 07/29/25 documented as of this encounter
--- OUTSIDE RECORDS SUMMARY | 2025-09-23 14:55 | XMS_ITS | Encounter Summary ---
Author Organization [email or web address] Address [address] [facility] [address] [place] [address] Care Team Providers Care Sports Athletic Trainer Name Role Phone Veronica Gallardo MD Primary Care Provider [phone] Brien Vargas PharmD Unavailable [phone] Earline Quinn RN Unavailable [phone] Encounter Details Date Type Department Care Team (Late st Contact Info) Description 04/02/2025 Orders Only [facility] [address] [place], [place] [phone] Veronica Gallardo MD [address] [place], [place] [phone] Hypertension, unspecified type (Primary Dx); Stage 3 [...] Description 10/14/2025 10:00 AM EST Medication Management [facility] [address] [place] [address] Brien Vargas, PharmD [address] [place] [address] 12/20/2025 10:30 AM EDT Office Visit [facility] [address] [place] [address] Johnny, Flora, OD 230 [place] [address] Scheduled Orders Name Type Priority Associated Diagnoses [...] EDT) Hepatitis B Surface Ag Negative Negative [facility] Venous blood specimen / Unknown 04/15/2025 9:10 AM EDT 04/15/2025 11:17 AM EDT us Veronica Gallardo MD LAB BLOOD ORDERABLES Final Resul t [facility] [address] [place] [phone] * HIV-1/2 Antigen and Antibodies, Fourth Generation, with Reflexes (04/15/2025 9:10 AM EDT) HIV AB/AG Nonreactive Nonreactive [facility] Comment:HIV-1 p24 Ag and/or HIV-1/HIV-2 Ab not detected.A test result that is nonreactive does not exclude thepossibility of exposure to or infection with HIV-1 and/orHIV-2. Nonreactive results in this assay for individualswith prior exposure to HIV-1 and/or HIV-2 may be due toantigen and antibody levels that are below the limit ofdetection of this assay.The [employer] HIV Ag/Ab Combo assay result andsupplemental assay [...] Organization Address City/[facility]/ZIP Co de Phone Number [facility] [address] [place] [phone] * Hepatitis C Antibody with Reflex to HCV, RNA, Quantitative, Real-Time PCR (04/15/2025 9:10 AM EDT) Hepatitis C Antibody Nonreactive Nonreactive [facility] Comment:Antibodies to HCV no t detected; does not exclude early acuteHCV infection. Venous blood specimen / Unknown 04/15/2025 9:10 AM EDT 04/15/2025 11:17 AM EDT Veronica Gallardo MD LAB BLOOD ORDERABLES Final Resul t Performing Organization Address City/[facility]/ZIP Co de Phone Number [facility] [address] [place] [phone] * Syphilis Screen (04/15/2025 9:10 AM EDT) Syphilis Screen Nonreactive Nonreactive [facility] 04/15/2025 9:10 AM EDT 04/15/2025 6:02 PM EDT Veronica Gallardo MD LAB BLOOD ORDERABLES Final Resul t Performing Organization Address [facility] de Phone Number [facility] [address] [place] [phone] * Vitamin B12 (Cobalamin) and Folate Panel, Serum (04/15/2025 9:10 AM EDT) Pathologist [facility] Vitamin B12 224 200 - 900 pg/mL [facility] Comment:NORMAL 200-900 PG/ML INDETERMINATE 160-199 PG/ML DEFICIENT < 160 PG/ML Folate 12.8 > or = 4.0 ng/mL [facility] Comment:Reference Values:> o r = 4.0 ng/mL< 4.0 ng/mL suggests folate deficiency Methotrexate, aminopterin and folinic acid(leucovorin) are chemotherapeutic agents whose molecularstructures are similar to folate; therefore, the Architectfolate assay cannot be used for patients using these drugs. Blood 04/15/2025 9:10 AM EDT 04/15/2025 11:17 AM EDT us Veronica Gallardo MD LAB BLOOD ORDERABLES Final Resul t Performing Organization Address [facility] de Phone Number [facility] [address] [place] [phone] * Vitamin D, 25-Hydroxy, Total, Immunoassay (04/15/2025 9:10 AM EDT) Pathologist [facility] Vitamin D 25-OH Total 42.5 >30 ng/mL [facility] Comment: Health Based Reference Values*< 20 ng/mL Thejyryxy50-93 ng/mL Insufficient> 30 ng/mL Sufficient*Ken COLEMAN. N [...] MD LAB BLOOD ORDERABLES Final Resul t [facility] [address] [place] [phone] * Lipid Panel with Reflex to Direct LDL (04/15/2025 9:10 AM EDT) Triglycerides 107 <150 mg/dL [facility] Comment:Desirable Triglyceri de: less than 150 mg/dLBorderline High Triglyceride 150-199 mg/dLHigh Triglyceride: 200-499 mg/dLVery High Triglyceride: greater than or equal to 5OO mg/dL Cholesterol 168 <200 mg/dL [facility] Comment:Desirable Cholestero l: less than 200 mg/dLBorderline High Cholesterol: 200-239 mg/dLHigh Cholesterol: greater than 239 mg/dL LDL Cholesterol Calculated 91 <100 mg/dL [facility] Comment:Desirable LDL: less than 100 mg/dLNear Optimal/Above Optimal LDL: 110- 129 mg/dLBorderline High LDL: 130-159 mg/dLHigh LDL: 160-189 mg/dLVery High LDL: greater than or equal to 190 mg/dL HDL Cholesterol 56 >40 mg/dL [facility] Comment:Desirable HDL: great er than 40 mg/dL Note: This HDL assay may give artificially low results in patients with liver disease. Blood 04/15/2025 9:10 AM EDT 04/15/2025 11:17 AM EDT Veronica Gallardo MD LAB BLOOD ORDERABLES Final Resul t Performing Organization Address [facility] Co de Phone Number [facility] [address] [place] [phone] * Hemoglobin A1c (04/15/2025 9:10 AM EDT) Hemoglobin A1c 5.3 <6.0 % [facility] Comment:Hemoglobin A1C Refer ence Range Adults: 4.8 - 6.0 % Non diabetic: < 6.0 % Goal: < 7.0 %Additional Action Suggested: > 8.0 %Note: Hemoglobin A1c results are invalid for patients with abnormal amounts of HbF. Blood transfusions may impact the HbA1c concentration in the patient sample. Estimated Average Glucose 105 mg/dL [facility] Comment:eAG = Estimated ave rage glucose which is %A1C expressed asaverage glucose, using the formula of the O7G-QjmiwvsOilnlbr Glucose study (ADAG), Diabetes Care, Vol.31,#8,May. 2007 Blood Venous blood specimen / Unknown 04/15/2025 9:10 AM EDT 04/15/2025 11:17 AM EDT us Veronica Gallardo MD LAB BLOOD ORDERABLES Final Resul t Performing Organization Address [facility] Co de Phone Number [facility] [address] [place] [phone] * TSH with Reflex to Free T4 (04/15/2025 9:10 AM EDT) TSH reflex Free T4 2.74 0.32 - 4.0 uIU/mL [facility] Blood 04/15/2025 9:10 AM EDT 04/15/2025 11:17 AM EDT us Veronica Gallardo MD LAB BLOOD ORDERABLES Final Resul t [facility] [address] [place] [phone] [phone] documented in this encounter Visit Diagnoses Diagnosis Hypertension, unspecified type- Primary Stage 3 chronic kidney disease, unspecified whether stage 3a or 3b CKD ([facility]) ([facility]) Erythrocytosis Polycythemia, secondary Dyslipidemia Other and unspecified hyperlipidemia Vitamin D deficiency Alcohol use disorder, moderate, in early remission ([facility]) ([facility]) Screening for diabetes mellitus Routine screening for STI (sexually transmitted infection) Screening examination for venereal disease documented in this encounter Additional Health Concerns Assessment Noted Time PHQ-9 Depression Total Score: 0 03/24/20 11:18 AM EDT documented as of this encounter Care Teams Sports Athletic Trainer Relationship Specialty Start Date End Date Veronica Gallardo MD [address] [place] [phone] PCP - General Family Medicine 08/09/12 Brien Vargas, PallaviD [address] [place] [phone] Pharmacist Internal Medicine 11/30/22 Earline Quinn, RENNY [address] [place] [phone] Registered Nurse Family Medicine 07/29/25 documented as of this encounter
--- OUTSIDE RECORDS SUMMARY | 2025-09-23 14:55 | XMS_ITS | Encounter Summary ---
Author Organization [employer] Address [address] [facility] [address] [place] [address] Care Team Providers Care Physical Therapist Clinic Director Name Role Phone Veronica Gallardo MD Primary Care Provider [phone] Brien Vargas PharmD Unavailable [phone] Earline Quinn RN Unavailable [phone] Encounter Details Date Type Department Care Team (Late st Contact Info) Description 04/25/2024 Orders Only [facility] [address] [place], [place] [phone] Veronica Gallardo MD [address] [place], [place] [phone] Hypertension, unspecified type Social History Tobacco Use [...] Description 10/14/2025 10:00 AM EST Medication Management [facility] [address] [place] [address] Brien Vargas, PharmD [address] [place] [address] 12/20/2025 10:30 AM EDT Office Visit [facility] [address] [place] [address] Johnny, Flora, OD [address] [place] [address] documented as of this encounter Goals Goal [...] AM EDT Narrative 05/03/2024 10:18 AM EDT [facility] [address] [place] [address] XRay Report Signed Patient: Chriss Munoz MR#: [id number] : 1955 Acct:[id number] Age/Sex: 68 / M ADM Date: 05/03/24 Loc: HO.ED Attending Dr: Ordering Physician: Flo Fleming MD Date of Service: 05/03/24 Procedure(s): XR chest 1V Accession Number(s): [id number] cc: Flo Fleming MD; Veronica Gallardo MD [...] in OV> 05/03/24 1015 DD/ 0930 TD/TT: Afloat Cryptologic Manager: PD Procedure Note Donotuseinterpreter, Image - 05/03/2024 [place] [address] XRay Report Signed Patient: Lenard Munoz#: [id number] : 1955cct:[id number] Age/Sex: 68 / MADM Date: 05/03/24 Loc: HO.ED Attending Dr: Ordering Physician: Flo Fleming MD Date of Service: 05/03/24 Procedure(s): XR chest 1V Accession Number(s): [id number] cc: Flo Fleming MD; Veronica Gallardo MD [...] in OV> 05/03/24 1015 DD/ 0930 TD/TT: Afloat Cryptologic Manager: PD [facility] External Provider IMG XR PROCEDURES Final Result documented in this encounter Visit Diagnoses Diagnosis Hypertension, unspecified type documented in this encounter Additional Health Concerns Assessment Noted Time PHQ-9 Depression Total Score: 0 03/24/20 23 11:18 AM EDT documented as of this encounter Care Teams Physical Therapist Clinic Director Relationship Specialty Start Date End Date Veronica Gallardo MD [address] [place] [phone] PCP - General Family Medicine 08/09/12 Brien Vargas, PallaviD [address] [place] [address] 630[address] Pharmacist Internal Medicine 11/30/22 Earline Quinn, RENNY [address] [place] [address] Registered Nurse Family Medicine 07/29/25 documented as of this encounter
--- OUTSIDE RECORDS SUMMARY | 2025-09-23 14:55 | XMS_ITS | Encounter Summary ---
Author Organization [employer] Address [address] [facility] [address] [place] [address] Care Team Providers Care Director Industrial Nursing Name Role Phone Veronica Gallardo MD Primary Care Provider [phone] Brien Vargas PharmD Unavailable [phone] Earline Quinn RN Unavailable [phone] Encounter Details Date Type Department Care Team (Late Contact Info) Description 10/12/2022 Orders Only [facility] [address] [place], [place] [phone] Deya Barber LPN Social History Tobacco Use [...] Description 10/14/2025 10:00 AM EST Medication Management [facility] [address] [place], [place] [phone] Brien Vargas, PharmD [address] [place], [place] [phone] 12/20/2025 10:30 AM EDT Office Visit [facility] [address] [place] [address] Flora Turner, OD [address] [place] [address] documented as of this encounter Visit Diagnoses Not on filedocumented in this encounter Care Teams Director Industrial Nursing Relationship Specialty Start Date End Date Veronica Gallardo MD [address] [place] [address] PCP - General Family Medicine 08/09/12 Brien Vargas, PallaviD [address] [place] [address] [phone] Pharmacist Internal Medicine 11/30/22 Earline Quinn, RENNY [address] [place], [place] [phone] Registered Nurse Family Medicine 07/29/25 documented as of this encounter
--- OUTSIDE RECORDS SUMMARY | 2025-09-23 14:55 | XMS_ITS | Encounter Summary ---
Author Organization [employer] Address [address] [facility] [address] [place] [address] Care Team Providers Care Septic Pump Truck Driver Name Role Phone Veronica Gallardo MD Primary Care Provider [phone] Brien Vargas PharmD Unavailable [phone] Earline Quinn RN Unavailable [phone] Reason for Visit * Reason Comments Med Refill Encounter Details Date Type Department Care Team (Late st Contact Info) Description 10/12/2023 Refill [facility] [address] [place], [place] [phone] Veronica Gallardo MD [address] [place], [place] [phone] Back pain with left-sided radiculopathy Social History [...] Description 10/14/2025 10:00 AM EST Medication Management [facility] [address] [place] [address] Brien Vargas, Efrain [address] [place] [address] 12/20/2025 10:30 AM EDT Office Visit [facility] [address] [place] [address] Johnny, Flora, OD [address] [place] [address] documented as of this encounter Goals Goal [...] documented as of this encounter Care Teams Septic Pump Truck Driver Relationship Specialty Start Date End Date Veronica Gallardo MD [address] [place] [address] PCP - General Family Medicine 08/09/12 Brien Vargas PharmD [address] [place] [address] Pharmacist Internal Medicine 11/30/22 Earline Quinn RN [address] [place] [address] [place] [address] Registered Nurse Family Medicine 07/29/25 documented as of this encounter
--- OUTSIDE RECORDS SUMMARY | 2025-09-23 14:55 | XMS_ITS | Encounter Summary ---
Author Organization [employer] [facility] Address [address] [facility] 7t [place] [address] Care Team Providers Care Smearer Name Role Phone Veronica Gallardo MD Primary Care Provider Brien Vargas PharmD Unavailable [phone] Earline Quinn RN Unavailable [phone] Encounter Details Date Type Department Care Team (Late st Contact Info) Description 09/09/2022 Orders Only [facility] [address] [place] [address] Veronica Gallardo MD [address] [place], [place] [phone] Social History Tobacco Use Types Packs/Day Years [...] Description 10/14/2025 10:00 AM EST Medication Management [facility] [address] [place] [phone] Brien Vargas, PharmD [address] [place] [address] 12/20/2025 10:30 AM EDT Office Visit [facility] [address] [place] [address] [phone] Flora Turner, OD [address] [place] [address] documented as of this encounter Visit Diagnoses Not on filedocumented in this encounter Care Teams Smearer Relationship Specialty Start Date End Date Veronica Gallardo MD [address] [place] [address] [phone] PCP - General Family Medicine 08/09/12 Brien Vargas, PallaviD [address] [place] [address] [phone] Pharmacist Internal Medicine 11/30/22 Earline Quinn, RN [address] [place] [address] [phone] Registered Nurse Family Medicine 07/29/25 documented as of this encounter
--- OUTSIDE RECORDS SUMMARY | 2025-09-23 14:56 | XMS_ITS | Encounter Summary ---
Author Organization [employer] Address [address] [facility] [address]t [place] [address] Care Team Providers Care Civil Litigation Attorney Name Role Phone Veronica Gallardo MD Primary Care Provider [phone] Brien Vargas PharmD Unavailable [phone] Earline Quinn RN Unavailable [phone] Reason for Referral * Consultation (Routine) - Canceled Specialty Diagnoses / Procedures Referred By Joseph alvarado Referred To Contact Pharmacy Diagnoses Hypertension, unspecified type Veronica Gallardo MD [address] [place] [address] Phone: tel: fax: Referral ID Status Reason Start Date Expiration Date V isits Requested Visits Authorized [id number] Canceled Consult and Treat 10/12/2024 10/12/2025 6 6 Encounter Details Date Type Department Care Team (Late st Contact Info) Description 10/12/2024 Orders Only [facility] [address] [place] [address] [phone] Veronica Gallardo MD [address] [place] [address] [phone] Hypertension, unspecified type (Primary Dx) Social History [...] Description 10/14/2025 10:00 AM EST Medication Management [facility] [address] [place] [address] Brien Vargas, PharmD [address] [place] [address] 12/20/2025 10:30 AM EDT Office Visit [facility] [address] [place] [address] Johnny, Flora, OD [address] [place] [address] Scheduled Referrals Name Type Priority Associated Diagnoses [...] documented as of this encounter Care Teams Civil Litigation Attorney Relationship Specialty Start Date End Date Veronica Gallardo MD [address] [place] [address] PCP - General Family Medicine 08/09/12 Brien Vargas, PharmD [address] [place] [phone] Pharmacist Internal Medicine 11/30/22 Earline Quinn, RENNY [address] [place] [phone] Registered Nurse Family Medicine 07/29/25 documented as of this encounter
--- OUTSIDE RECORDS SUMMARY | 2025-09-23 14:57 | XMS_ITS | Clinical Summary ---
Author Organization [employer] Address [address] [facility] [address] [place] [address] Care Team Providers Care Chair Upholsterer Name Role Phone Veronica Gallardo MD Primary Care Provider [phone] Brien Vargas PharmD Unavailable [phone] Earline Quinn RN Unavailable [phone] Allergies Active Allergy Reactions Criticality Noted [...] Mild narrowing of the lateral compartment Patient's managed care analyst requests a script for handheld shower / [...] that it may not be approved Patient's managed care analyst requests a script for handheld shower / [...] (12/12/2023 3:50 PM EST): - followed by [facility] - most recent renal US in Jun 2023 - continue surveillance Non-rheumatic aortic stenosis 06/03/2023 Assessment & Plan (07/31/2025 3:41 PM EDT): - most recent transthoracic echocardiogram on 09/06/24 showed mild to moderate aortic stenosis, and possible bicuspid aortic valve - continue following up with leaded glass installer Assessment & Plan (06/03/2025 8:19 AM EDT): - most recent transthoracic echocardiogram on 09/06/24 showed mild to moderate aortic stenosis, and possible bicuspid aortic valve - continue following up with leaded glass installer Assessment & Plan (12/12/2023 3:47 PM EST): - most recent transthoracic echocardiogram on 09/05/23 showing mild-moderate aortic stenosis and trivial aortic regurgitation - continue following management recommendations by leaded glass installer Benign prostatic hyperplasia 03/28/2023 Overview (03/28/2023): -previously following with Urologist, last seen in 2017&2018 -will check PSA -will refer him back to Urologist for further evaluation Assessment & Plan (07/31/2025 3:52 PM EDT): - followed by [facility], last seen in Jul 2024 - PSA has been normal level - continue terazosin and finasteride Assessment & Plan (06/03/2025 8:25 AM EDT): - followed by [facility], last seen in Jul 2024 - PSA has been normal level - continue terazosin and finasteride Assessment & Plan (06/21/2024 11:09 AM EDT): - followed by [facility], last seen in Nov 2023 - PSA has been normal level - continue tamsulosin Assessment & Plan (12/12/2023 3:49 PM EST): - followed by [facility], last seen in Nov 2023 - PSA has been normal level - continue tamsulosin Assessment & Plan (07/15/2023 6:41 AM EDT): - previously followed by urologist, last seen in 2017 - recently seen again by [facility] in May 2023 - CT in [...] -His case was presented to [facility], and pt had a direct [...] -His case was presented to [facility], and pt had a direct observation therapy. -He finally completed 12 weeks of 900mg INH/900mg Rifapentine/ B6 50mg on 02/14/2019 History of syphilis 11/19/2022 History of shingles 11/19/2022 Major depression 11/09/2022 Assessment & Plan (09/05/2025 12:08 AM EST): - [facility] provider : Francisco Javier Forrest - Hx suicidal ideation - Lost his in 2014 due to pancreatic cancer, and his psychosocial health worsened - Continue buspirone and mirtazapine as prescribed by psychiatarist Assessment & Plan (07/31/2025 10:54 AM EDT): - [facility] provider : Francisco Javier Forrest - Hx suicidal ideation - Lost his in 2014 due to pancreatic cancer, and his psychosocial health worsened - Continue buspirone and mirtazapine as prescribed by psychiatarist History of alcohol use disorder 11/09/2022 Assessment & Plan (11/19/2022 5:42 PM EST): - graduated from [facility] clinic - continue naltrexone - pt is aware of recovery support resources at [facility] Alcohol use disorder, modera te, in [...] (07/31/2025 3:53 PM EDT): - followed by spindle setter, last seen in Jun 2025 - normal erythropoietin level - all other work-up has been normal - safely discharged to primary care for periodic monitoring Assessment & Plan (06/03/2025 8:25 AM EDT): - followed by spindle setter, last seen in Jul 2024 - normal erythropoietin level - all other work-up has been normal Assessment & Plan (06/21/2024 11:09 AM EDT): - followed by spindle setter, last seen in Jul 2023 - normal erythropoietin level - all other work-up has been normal Assessment & Plan (12/12/2023 3:53 PM EST): - followed by spindle setter, last seen in Jul 2023 - normal erythropoietin level - all other work-up has been normal Assessment & Plan (07/15/2023 6:41 AM EDT): - evaluated by spindle setter, last seen in January 2023 - normal erythropoietin level - all other work-up has been normal - US was ordered by spindle setter; advised to complete evaluation Assessment & Plan (11/19/2022 5:28 PM EST): - evaluated by spindle setter, last seen on 07/13/22 - normal erythropoietin level - all other work-up has been normal - most recent hematocrit 45 on 09/16/22 - US was ordered by spindle setter; advised to complete evaluation custodial (current) use of anticoagulants 2021 Assessment & Plan (05/31/2025 12:19 AM EDT): - indication: recurrent / chronic DVT, question of hypercoagulable disorder (elevated homocysteine) -managed by [facility] -Most recent INR-->3.4 on 03/18/23 -Current [...] of hypercoagulable disorder (elevated homocysteine) -managed by [facility] -Most recent INR-->3.4 on 03/18/23 -Current [...] of hypercoagulable disorder (elevated homocysteine) -managed by [facility] -Most recent INR-->3.4 on 03/18/23 -Current [...] -Emphasized the importance of keeping appt with leaded glass installer; pt verbalized understanding Assessment & Plan (07/31/2025 3:42 PM EDT): -Most recent transthoracic echocardiogram on 09/06/24 showed mild to moderate aortic stenosis, and possible bicuspid aortic valve -Continue working on risk factor management -Emphasized the importance of keeping appt with leaded glass installer; pt verbalized understanding Assessment & Plan (06/21/2024 11:09 AM EDT): -Most recent TTE on 09/05/23 Normal EF, mild-mod aortic stenosis and trivial aortic regurgitation with possible bicuspid aortic valve. Ascending aorta at 42 mm -Continue working on risk factor management -Emphasized the importance of keeping appt with leaded glass installer; pt verbalized understanding Assessment & Plan (12/12/2023 3:07 PM EST): -Most recent TTE on 09/05/23 Normal EF, mild-mod aortic stenosis and trivial aortic regurgitation with possible bicuspid aortic valve. Ascending aorta at 42 mm -Continue working on risk factor management -Emphasized the importance of keeping appt with leaded glass installer; pt verbalized understanding Assessment & Plan (07/15/2023 6:32 AM EDT): - Echo on 03/31/22 EF 60-65% showed severely calcified aortic valve, stenosis and mild regurgitation (in HFCCA). - Emphasized the importance of keeping appt with leaded glass installer; pt verbalized understanding Assessment & Plan (11/09/2022 11:55 AM EST): - ECHO on 03/31/22 EF 60-65% showed severely calcified aortic valve, stenosis and mild regurgitation. -Pt was discharged from previous [facility] and will send to new [facility]. Alcohol use 11/16/2018 Stage 3 chronic kidney disease (CMS/HCC) 016 Assessment & Plan (09/05/2025 12:08 AM EST): -[facility] Psych[facility], [facility]. Last seen in Nov 2024 -09/10/16 Renal US wnl, no renal artery stenosis. -Hx elevated K with ACEI -Avoid NSAIDs / nephrotoxic drugs. -Use renal dosing. -Emphasized the importance of keeping appointment -Still waiting for microalbumin lab Assessment & Plan (07/31/2025 3:52 PM EDT): -[facility]ison Psychiatrist, [facility]. Last seen in Nov 2024 -09/10/16 Renal US wnl, no renal artery stenosis. -Hx elevated K with ACEI -Avoid NSAIDs / nephrotoxic drugs. -Use renal dosing. -Emphasized the importance of keeping appointment -Still waiting for microalbumin lab Assessment & Plan (06/03/2025 8:24 AM EDT): -Patient has missed several appointments with stringed instrument assembler, upcoming appt -09/10/16 Renal US wnl, no renal artery stenosis. -Hx elevated K with ACEI -Avoid NSAIDs / nephrotoxic drugs. -Use renal dosing. -Emphasized the importance of keeping appt Assessment & Plan (06/21/2024 11:09 AM EDT): -Referred back to stringed instrument assembler after last visit in Jul 2023 -Patient had an appointment in [facility], which was rescheduled for 01/09/24 -09/10/16 Renal US wnl, no renal artery stenosis. -Hx elevated K with ACEI -Avoid NSAIDs / nephrotoxic drugs. -Use renal dosing. -Emphasized the importance of keeping appt Assessment & Plan (12/12/2023 3:52 PM EST): -Referred back to stringed instrument assembler after last visit in Jul 2023 -Patient had an appointment in [facility], which was rescheduled for 01/09/24 -09/10/16 Renal US wnl, no renal artery stenosis. -Hx elevated K with ACEI -Avoid NSAIDs / nephrotoxic drugs. -Use renal dosing. -Emphasized the importance of keeping appt Assessment & Plan (07/15/2023 6:39 AM EDT): -Followed by stringed instrument assembler, last seen ? -Mildly elevated K. Monitor closely with ACEI. -09/10/16 Renal US wnl, no renal artery stenosis. -Avoid NSAIDs / nephrotoxic drugs. -Use renal dosing. -Emphasized the importance of keeping appt Assessment & Plan (03/24/2023 12:38 PM EDT): -Followed by stringed instrument assembler, last seen -Currently on lisinopril 5 mg daily. -Mildly elevated K. Monitor closely with ACEI. -Most recent INR-->3.0 on 11/09/22 -09/10/16 Renal US wnl, no renal artery stenosis. -Avoid NSAIDs / nephrotoxic drugs. -Use renal dosing. Assessment & Plan (11/19/2022 6:02 PM EST): -Followed by stringed instrument assembler, last seen -Currently on lisinopril 5 mg [...] BP at the cardiology office -Comanaged with leaded glass installer, pharmD, and stringed instrument assembler -Continue working on life style modifications. -Continue amlodipine 10 mg daily -Continue hydralazine 50 mg tid -(Continue terazosin 5 mg daily for BPH with LUTS) --Treatment history: -Lisinopril was decreased to 2.5 mg daily after AAYUSH with hyperkalemia secondary to renal hypoperfusion in a setting of CKD in summer 2016. Completely discontinued by stringed instrument assembler -Most recent echo: 09/06/24 EF 60-65%. Mild - mod . Thoracic aortic aneurysm 4.2 cm -Consider 24-hour BP monitoring with stringed instrument assembler Assessment & Plan (07/31/2025 10:47 AM EDT): -Goal BP < 130/80 per ACC/AHA guideline -BP not at goal. Fluctuating BP. Normal BP at the cardiology office -Comanaged with leaded glass installer, pharmD, and stringed instrument assembler -Continue working on life style modifications. -Continue amlodipine 10 mg daily -Continue hydralazine 50 mg tid -(Continue terazosin 5 mg daily for BPH with LUTS) --Treatment history: -Lisinopril was decreased to 2.5 mg daily after AAYUSH with hyperkalemia secondary to renal hypoperfusion in a setting of CKD in summer 2016. Completely discontinued by stringed instrument assembler -Most recent echo: 09/06/24 EF 60-65%. Mild - mod . Thoracic aortic aneurysm 4.2 cm -Consider 24-hour BP monitoring with stringed instrument assembler Assessment & Plan (06/03/2025 8:21 AM EDT): -Goal BP < 130/80 per ACC/AHA guideline -BP at goal -Comanaged with leaded glass installer, pharmD, and stringed instrument assembler -Continue working on life style modifications. -Continue amlodipine 10 mg daily -Continue hydralazine 50 mg tid -(Continue terazosin 5 mg daily for BPH with LUTS) --Treatment history: -Lisinopril was decreased to 2.5 mg daily after AAYUSH with hyperkalemia secondary to renal hypoperfusion in a setting of CKD in summer 2016. Completely discontinued by stringed instrument assembler -Most recent echo: 09/06/24 EF 60-65%. Mild - mod . Thoracic aortic aneurysm 4.2 cm Assessment & Plan (06/21/2024 11:09 AM EDT): -Goal BP < 140/90 per JNC-8, < 130/80 per ACC/AHA guideline -BP not at goal , ?adherence to medication -Comanaged with leaded glass installer, pharmD, and stringed instrument assembler -Continue working on life style modifications. -Continue amlodipine 10 mg daily -Continue hydralazine 50 mg tid --Treatment history: -Lisinopril was decreased to 2.5 mg daily after AAYUSH with hyperkalemia secondary to renal hypoperfusion in a setting of CKD in summer 2016. Completely discontinued by stringed instrument assembler -Most recent echo: 09/05/23 EF 60-65%. Mild . Thoracic aortic aneurysm 4.2 cm - Follow up in 3 mo or sooner if any problem arises Assessment & Plan (03/13/2024 10:47 AM EDT): -Goal BP < 140/90 per JNC-8, < 130/80 per ACC/AHA guideline -BP not at goal , ?adherence to medication -Comanaged with leaded glass installer, pharmD, and stringed instrument assembler -Continue working on life style modifications. -Continue amlodipine 10 mg daily -Continue hydralazine 50 mg tid --Treatment history: -Lisinopril was decreased to 2.5 mg daily after AAYUSH with hyperkalemia secondary to renal hypoperfusion in a setting of CKD in summer 2016. Completely discontinued by stringed instrument assembler -Most recent echo: 09/05/23 EF 60-65%. Mild . Thoracic aortic aneurysm 4.2 cm - Follow up in 3 mo or sooner if any problem arises Assessment & Plan (12/12/2023 3:05 PM EST): -Goal BP < 140/90 per JNC-8, < 130/80 per ACC/AHA guideline -BP not at goal , ?adherence to medication -Comanaged with leaded glass installer, pharmD, and stringed instrument assembler -Continue working on life style modifications. -Continue amlodipine 10 mg daily -Continue hydralazine 50 mg tid --Treatment history: -Lisinopril was decreased to 2.5 mg daily after AAYUSH with hyperkalemia secondary to renal hypoperfusion in a setting of CKD in summer 2016. Completely discontinued by stringed instrument assembler -Most recent echo: 09/05/23 EF 60-65%. Mild . Thoracic aortic aneurysm 4.2 cm - Follow up in 3 mo or sooner if any problem arises Assessment & Plan (07/15/2023 6:34 AM EDT): -Goal BP < 140/90 per JNC-8, < 130/80 per ACC/AHA guideline -BP not at goal , ?adherence to medication -Comanaged with leaded glass installer, pharmD, and stringed instrument assembler -Continue working on life style modifications. -Continue amlodipine 10 mg daily -Continue hydralazine 25 mg tid --Treatment history: -Lisinopril was decreased to 2.5 mg daily after AAYUSH with hyperkalemia secondary to renal hypoperfusion in a setting of CKD in summer 2016. Completely discontinued by stringed instrument assembler -Most recent echo: 03/31/22 EF 60-65%. Mild [...] We need to confirm this dosing with leaded glass installer. --Treatment history: -Lisinopril was decreased to 2.5 [...] We need to confirm this dosing with leaded glass installer. --Treatment history: -Lisinopril was decreased to 2.5 [...] EDT): Hx of elevated homocysteine. Evaluated by spindle setter for hypercoagulable disorder. Evaluation is incomplete because he was on Coumadin. He was recommended indefinite warfarin treatment. Assessment & Plan (03/28/2023 1:04 PM EDT): Hx of elevated homocysteine. Evaluated by spindle setter for hypercoagulable disorder. Evaluation is incomplete because he was on Coumadin. He was recommended indefinite warfarin treatment. Vitamin D deficiency 11/24/2012 Deep venous thrombosis of lower extremity 2011 Assessment & Plan (09/05/2025 12:07 AM EST): -Recurrent and chronic DVT, mostly left side -Chronic left common femoral vein -Continue warfarin -INR monitoring and warfarin dose adjustment are managed by [facility] Green team nurses -Continue following with [facility] Green team nurse for anticoagulation management Assessment & Plan (07/31/2025 10:52 AM EDT): -Recurrent and chronic DVT, mostly left side -Chronic left common femoral vein -Continue warfarin -INR monitoring and warfarin dose adjustment are managed by [facility] Green team nurses -Continue following with [facility] Green team nurse for anticoagulation management Assessment & Plan (05/31/2025 12:18 AM EDT): -Recurrent and chronic DVT, mostly left side -Chronic left common femoral vein -Continue warfarin -INR monitoring and warfarin dose adjustment are managed by [facility] Green team nurses -Most recent INR 2.3 on 06/18/23 -Continue following with [facility] Green team nurse for anticoagulation management Assessment & Plan (06/21/2024 11:08 AM EDT): -Recurrent and chronic DVT, mostly left side -Chronic left common femoral vein -Continue warfarin -INR monitoring and warfarin dose adjustment are managed by [facility] Green team nurses -Most recent INR 2.3 on 06/18/23 -Continue following with [facility] team nurse for anticoagulation management Assessment & Plan (03/13/2024 10:46 AM EDT): -Recurrent and chronic DVT, mostly left side -Chronic left common femoral vein -Continue warfarin -INR monitoring and warfarin dose adjustment are managed by [facility] Green team nurses -Most recent INR 2.3 on 06/18/23 -Continue following with [facility] Green team nurse for anticoagulation management Assessment & Plan (12/12/2023 3:04 PM EST): -Recurrent and chronic DVT, mostly left side -Chronic left common femoral vein -Continue warfarin -INR monitoring and warfarin dose adjustment are managed by [facility] Green team nurses -Most recent INR 2.3 on 06/18/23 -Continue following with [facility] Green team nurse for anticoagulation management Assessment & Plan (07/15/2023 6:37 AM EDT): -Recurrent and chronic DVT, mostly left side -Chronic left common femoral vein -Continue warfarin -INR monitoring and warfarin dose adjustment are managed by [facility] Green team nurses -Most recent INR 2.3 on 06/18/23 -Continue following with [facility] Green team nurse for anticoagulation management Assessment & Plan (03/24/2023 12:37 PM EDT): -Recurrent and chronic DVT, mostly left side -Chronic left common femoral vein -Continue warfarin -INR monitoring and warfarin dose adjustment are managed by [facility] Green team nurses -Most recent INR-->3.0 on 11/09/22 -Continue following with [facility] Green team nurse for anticoagulation management Assessment & Plan (11/19/2022 6:00 PM EST): -Recurrent and chronic DVT, mostly left side -Chronic left common femoral vein -Continue warfarin -INR monitoring and warfarin dose adjustment are managed by [facility] Leon team nurses -Most recent INR-->3.0 on 11/09/22 -Continue following with [facility] Leon team nurse for anticoagulation management Seizure disorder ([facility]) 03/23/2012 Assessment & Plan (07/31/2025 10:56 AM [...] Encounters Date Type Department Care Team Description 09/22/2025 Refill [facility] [address] [place] [address] Veronica Gallardo MD Back pain with left-sided radiculopathy 09/16/2025 3:00 PM EST Clinical Support [facility] [address] [place] [address] Earline Quinn, RENNY custodial (current) use of anticoagulants 09/16/2025 Travel 09/12/2025 Telephone [facility] [address] [place] [address] Veronica Gallardo MD No Show 09/09/2025 Orders Only GENERIC EXTERNAL DATA DEPARTMENT Provider, Generic External Data 09/04/2025 2:00 PM EST Clinical Support [facility] [facility] [place] [address] Earline Quinn RN custodial (current) use of anticoagulants 09/04/2025 Travel 09/02/2025 11:00 AM EST Office Visit [facility] [place] [address] Veronica Gallardo MD Hypertension, unspecified type (Primary Dx); Aneurysm of ascending aorta without rupture (CMS/HCC); Mitral and aortic valve disease; Dyslipidemia; Stage 3 chronic kidney disease, unspecified whether stage 3a or 3b CKD (CMS/HCC) (HCC); Chronic idiopathic constipation; Chronic deep vein thrombosis (DVT) of femoral vein of left lower extremity ([facility]); Current severe episode of major depressive disorder without psychotic features, unspecified whether recurrent (CMS/HCC) (HCC) 09/02/2025 Travel 08/30/2025 Telephone [facility] [place] [address] [facility] [place] [address] Maricruz Sloan MA 08/29/2025 2:30 PM EST Clinical Support [facility] [address] [facility] [place] [address] Marlyn Murdock, RENNY custodial (current) use of anticoagulants 08/29/2025 Travel 08/25/2025 Refill [facility] [place] [address] Josefina Cruz ANP 08/22/2025 1:00 PM EST Clinical Support [facility] [address] [facility] [place] [address] Marlyn Murdock, RENNY 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 08/22/2025 Travel 08/07/2025 9:40 AM EDT [facility] [place] [address] Deya Khan DO Chest pain, unspecified type (Primary Dx) 08/07/2025 Orders Only [facility] External Provider, [facility] 08/07/2025 Travel 08/06/2025 Orders Only [facility] [place] [address] Veronica Gallardo MD Hypertension, unspecified type (Primary Dx) 08/05/2025 Telephone [facility] [address] [facility] [place] [address] Veronica Gallardo MD Durable Medical Equipment (DME Request: handheld shower / shower extension) 08/05/2025 Telephone [facility] [address] [facility] [place] [address] Veronica Gallardo MD 08/05/[address] [place] [address] Veronica Gallardo MD Back pain with left-sided radiculopathy 08/02/20[address] [facility] [place] [address] Veronica Gallardo MD Paperwork/Forms 07/31/2025 [address] [place] [address] Earline Quinn RN Care Coordination 07/30/2025 9:15 AM EDT Office Visit [facility] [address] [facility] [place] [place] [address] Veronica Gallardo MD Hypertension, unspecified type (Primary Dx); Stage 3 chronic kidney disease, unspecified whether stage 3a or 3b CKD (CMS/HCC) ([facility]); Alcohol use; Routine screening for STI (sexually transmitted infection); Encounter for vaccination; Encounter for immunization; Aneurysm of ascending aorta without rupture (CMS/[facility]); Chronic deep vein thrombosis (DVT) of femoral vein of left lower extremity ([facility]); Alcohol use disorder, moderate, in early remission (CMS/HCC) ([facility]); Current severe episode of major depressive disorder without psychotic features, unspecified whether recurrent (CMS/HCC) ([facility]); Depressive disorder; Chronic pain of left knee; Chronic back pain, unspecified back location, unspecified back pain laterality; Seizure disorder (CMS/HCC) ([facility]); Peripheral vascular disease (CMS/HCC); Non-rheumatic aortic stenosis; Mitral and aortic valve disease; Dyslipidemia; 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; Benign prostatic hyperplasia, unspecified whether lower urinary tract symptoms present; Erythrocytosis 07/30/2025 Travel 07/29/[address] [place] [address] Veronica Gallardo MD Durable Medical Equipment 07/27/2025 Refill [facility] [address] [facility] [place] [address] Veronica Gallardo MD Back pain with left-sided radiculopathy 07/26/2025 Telephone [facility] [place] [address] Veronica Gallardo MD fyi 07/23/2025 11:00 AM EDT Clinical Support [facility] [address] [facility] [place] [address] Earline Quinn RN custodial (current) use of anticoagulants 07/23/2025 Travel 07/18/2025 Orders Only GENERIC EXTERNAL DATA DEPARTMENT Provider, Generic External Data 07/15/2025 Orders Only GENERIC EXTERNAL DATA DEPARTMENT Provider, Generic External Data 06/26/2025 Refill [facility] [address] [facility] [place] [address] Veronica Gallardo MD Hypertension, unspecified type; Intercostal pain from Last 3 Months Immunizations Immunization Administration [...] Description 10/14/2025 10:00 AM EST Medication Management [facility] [address] [place] [address] Brien Vargas, PharmD [address] [place] [address] 12/20/2025 10:30 AM EDT Office Visit [facility]OMET[facility] [address] [place] [address] JohnnyFlora major, OD [address] [place] [address] Health Maintenance Due Date Last Done Comments [...] on patient's age to complete this topic Influenza Vaccine Completed 07/30/2025, , 06/29/2023, Additional history exists Hepatitis C Screening Completed 09/09/2025 , 04/15/2025, 06/21/2024, Additional history exists HIB Vaccines Aged Out [...] Blood Pressure 138/92( 025 11:05 AM EST) Brien Pollard, Efrain Procedures Procedure Name Priority Date/Time Associated Diagnosis Comments VASC US LOWER EXTREMITY VENOUS DUPLEX BILATERAL Routine 09/23/2025 10:54 AM EST POCT INR Routine 09/16/2025 1:02 PM EST custodial (current) use of anticoagulants PSA, TOTAL Routine 09/09/2025 9:44 AM EST HEPATITIS B SURFACE ANTIGEN, EIA Routine 09/09/2025 9:44 AM EST Routine screening for STI (sexually transmitted infection) HIV 1/2 ANTIGEN/ANTIBODY, FOURTH GENERATION W/RFL Routine 09/09/2025 9:44 AM EST Routine screening for STI (sexually transmitted infection) HEPATITIS B CORE AB TOTAL Routine 09/09/2025 9:44 AM EST Routine screening for STI (sexually transmitted infection) HEPATITIS B SURFACE ANTIBODY, QUALITATIVE Routine 09/09/2025 9:44 AM EST Routine screening for STI (sexually transmitted infection) HEPATITIS C AB W/REFL TO HCV RNA, QN, PCR Routine 09/09/2025 9:44 AM EST Routine screening for STI (sexually transmitted infection) SYPHILIS SCREEN Routine 09/09/2025 9:44 AM EST Routine screening for STI (sexually transmitted infection) ALBUMIN, RANDOM URINE W/CREATININE Routine 09/09/2025 9:42 AM EST Hypertension, unspecified type POCT INR Routine 09/04/2025 9:56 AM EST custodial (current) use of anticoagulants POCT INR Routine 08/29/2025 11:09 AM EST 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 POCT INR Routine 08/22/2025 1:41 PM EST 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 NM HEART PERFUSION [...] AM EDT custodial (current) use of anticoagulants HIGH SENSITIVITY TROPONIN I Routine 07/18/2025 4:42 PM EDT XR CHEST 2 VIEWS Routine 07/18/2025 2:50 PM EDT PSA, TOTAL Routine 07/15/2025 10:20 AM EDT LIPID PANEL WITH REFLEX TO DIRECT LDL Routine 04/15/2025 9:10 AM EDT Dyslipidemia from Last 3 Months or Most Recently Relevant to Health Maintenance Results * VASC US Lower Extremity Venous Duplex Bilateral (09/23/2025 10:54 AM EST) 09/23/2025 10:5 4 AM EST Narrative [facility] - 09/23/2025 2:06 PM EST [address] [address] Ultrasound Report Signed Patient: Chriss Munoz MR#: [id number] : 1955 Acct:[id number] Age/Sex: 70 / M ADM Date: 09/23/25 Loc: [facility] Attending Dr: Wayne Upton MD Ordering Physician: Wayne Upton MD Date of Service: 09/23/25 Procedure(s): US venous duplex LE BI Accession Number(s): [id number] cc: Wayne Upton MD; Veronica Gallardo MD Reason for Exam: I83.12 - Varicose veins of left lower extremity with inflammation EXAMINATION: US LOWER EXTREMITY VENOUS (REFLUX EXAM), BILATERAL CLINICAL INFORMATION: Varicose veins of the lower extremity with inflammation, venous incompetence COMPARISON: January 04, 2024 TECHNIQUE: Color flow triplex imaging and compression Doppler was performed to evaluate both the deep and the superficial systems bilaterally. To evaluate the superficial system, the examination was performed in the upright position. Color-flow Doppler ultrasound and compression ultrasound were utilized. In addition, maneuvers were utilized to demonstrate reflux. FINDINGS: 1. DEEP VENOUS ULTRASOUND OF THE RIGHT LOWER EXTREMITY: Common Femoral Vein: Compressible, normal respiratory variation and augmented flow. Femoral Vein: Compressible, normal color flow and augmentation. Popliteal Vein: Compressible, normal augmentation. Deep Reflux: There is no evidence of reflux in the deep system in either the common femoral vein, superficial femoral or the popliteal vein. 2. SUPERFICIAL ULTRASOUND WITH DOPPLER OF RIGHT LOWER EXTREMITY: GREAT SAPHENOUS VEIN: Saphenofemoral Junction: 0.6 cm; Reflux: 0 ms Proximal Thigh: 4 cm; Reflux: 0 ms Mid Thigh: 0.3 cm; Reflux: 0 ms Distal Thigh: 0.3 cm; Reflux: 0 ms At Knee: 0.3 cm; Reflux: 0 ms Below Knee/Proximal Calf: 0.2 cm; Reflux: 0 ms Mid Calf: 0.3 cm; Reflux: 1900 ms Ankle/Distal Calf: 0.3 cm; Reflux: 0 ms Lateral accessory GREAT SAPHENOUS VEIN: None SMALL SAPHENOUS VEIN: Drainage: Thigh extension Saphenopopliteal Junction: 0.2 cm; Reflux: 0 ms Mid calf: 0.2 cm; Reflux: 0 ms Distal: 0.2 cm; Reflux: 0 ms VEIN OF GIACOMINI: Size: 0.2 cm Reflux: 0 ms PERFORATORS: Location: Greater saphenous vein, proximal thigh Size: 0.2 cm Reflux: 0 ms Location: Greater saphenous vein, proximal calf Size: 0.2 cm Reflux: 0 ms VARICOSITIES > 3mm: Location: None Imaged 3. DEEP VENOUS ULTRASOUND OF THE LEFT LOWER EXTREMITY: Common Femoral Vein: There is mixed echogenicity material along the deep wall. The vessel is partially compressible. There is flow on color Doppler. Femoral Vein: Linear echogenic bands are visible within the vessel. The vessel is partially compressible with flow. Popliteal Vein: There is an echogenic band in the vessel. The vessel is partially compressible with flow. Similar findings were present on the prior. Deep Reflux: There is no evidence of reflux in the deep system in either the common femoral vein, superficial femoral or the popliteal vein. 4. SUPERFICIAL ULTRASOUND WITH DOPPLER OF LEFT LOWER EXTREMITY: GREAT SAPHENOUS VEIN: Saphenofemoral Junction: 0.4 cm; Reflux: 0 ms Proximal Thigh: 0.5 cm; Reflux: 0 ms Mid Thigh: 0.5 cm; Reflux: >2400 ms Distal Thigh: 0.5 cm; Reflux: >2200 ms At Knee: 0.5 cm; Reflux: 1500 ms Below Knee/Proximal Calf: 0.4 cm; Reflux: 1850 ms Mid Calf: 0.2 cm; Reflux: 0 ms Ankle/Distal Calf: 0.3 cm; Reflux: 0 ms Lateral accessory GREAT SAPHENOUS VEIN: Saphenofemoral Junction: 0.3 cm; Reflux: 0 ms Mid Thigh: 0.3 cm; Reflux: 0 ms SMALL SAPHENOUS VEIN: Drainage: thigh extension Saphenopopliteal Junction: 0.2 cm; Reflux: 0 ms Mid calf: 0.2 cm; Reflux: 0. ms Distal calf: 0.3 cm; Reflux: 0 ms VEIN OF GIACOMINI: Size: 0.2 Reflux: 0 PERFORATORS: Location: Greater saphenous vein, proximal calf Size: 0.3 cm Reflux: 0 ms VARICOSITIES > 3mm: Location: Accessory saphenous vein, mid Size: 0.3 cm Reflux: 0 ms Location: Great saphenous vein, at knee Size: 0.3 cm Reflux: 0 ms US/US venous duplex LE IMPRESSION: Right: Venous incompetence is demonstrated in the greater saphenous vein, midcalf Left: Extensive nonocclusive chronic DVT is similar to the prior in December 2023 Venous incompetence is demonstrated in the greater saphenous vein from the mid thigh through the proximal calf Electronically signed by: Umesh Franklin MD 09/23/2025 02:02 PM [facility] Dictated By: Umesh Franklin MD Signed By: <Electronically signed by Umesh Franklin MD in OV> 09/23/25 1402 DD/ 1054 TD/TT: 09/23/25 1129 Podiatry Teacher: Procedure Note Donotuseinterpreter, Image - 09/23/[address] [address] Ultrasound Report Signed Patient: Lenard Munoz#: [id number] : 1955cct:[id number] Age/Sex: 70 / MADM Date: 09/23/25 Loc: . Attending Dr: Wayne Upton MD Ordering Physician: Wayne Upton MD Date of Service: 09/23/25 Procedure(s): US venous duplex LE BI Accession Number(s): [id number] cc: Wayne Upton MD; Veronica Gallardo MD Reason for Exam: I83.12 - Varicose veins of left lower extremity withinflammation EXAMINATION: US LOWER EXTREMITY VENOUS (REFLUX EXAM), BILATERAL CLINICAL INFORMATION: Varicose veins of the lower extremity with inflammation, venous incompetence COMPARISON: January 04, 2024 TECHNIQUE: Color flow triplex imaging and compression Doppler was performed to evaluate both the deep and the superficial systems bilaterally. To evaluate the superficial system, the examination was performed in the upright position. Color-flow Doppler ultrasound and compression ultrasound were utilized. In addition, maneuvers were utilized to demonstrate reflux. FINDINGS: 1. DEEP VENOUS ULTRASOUND OF THE RIGHT LOWER EXTREMITY: Common Femoral Vein: Compressible, normal respiratory variation and augmented flow. Femoral Vein: Compressible, normal color flow and augmentation. Popliteal Vein: Compressible, normal augmentation. Deep Reflux: There is no evidence of reflux in the deep system in either the common femoral vein, superficial femoral or the popliteal vein. 2. SUPERFICIAL ULTRASOUND WITH DOPPLER OF RIGHT LOWER EXTREMITY: GREAT SAPHENOUS VEIN: Saphenofemoral Junction: 0.6 cm; Reflux: 0 ms Proximal Thigh: 4 cm; Reflux: 0 ms Mid Thigh: 0.3 cm; Reflux: 0 ms Distal Thigh: 0.3 cm; Reflux: 0 ms At Knee: 0.3 cm; Reflux: 0 ms Below Knee/Proximal Calf: 0.2 cm; Reflux: 0 ms Mid Calf: 0.3 cm; Reflux: 1900 ms Ankle/Distal Calf: 0.3 cm; Reflux: 0 ms Lateral accessory GREAT SAPHENOUS VEIN: None SMALL SAPHENOUS VEIN: Drainage: Thigh extension Saphenopopliteal Junction: 0.2 cm; Reflux: 0 ms Mid calf: 0.2 cm; Reflux: 0 ms Distal: 0.2 cm; Reflux: 0 ms VEIN OF GIACOMINI: Size: 0.2 cm Reflux: 0 ms PERFORATORS: Location: Greater saphenous vein, proximal thigh Size: 0.2 cm Reflux: 0 ms Location: Greater saphenous vein, proximal calf Size: 0.2 cm Reflux: 0 ms VARICOSITIES > 3mm: Location: None Imaged 3. DEEP VENOUS ULTRASOUND OF THE LEFT LOWER EXTREMITY: Common Femoral Vein: There is mixed echogenicity material along the deep wall. The vessel is partially compressible. There is flow on color Doppler. Femoral Vein: Linear echogenic bands are visible within the vessel. The vessel is partially compressible with flow. Popliteal Vein: There is an echogenic band in the vessel. The vessel is partially compressible with flow. Similar findings were present on the prior. Deep Reflux: There is no evidence of reflux in the deep system in either the common femoral vein, superficial femoral or the popliteal vein. 4. SUPERFICIAL ULTRASOUND WITH DOPPLER OF LEFT LOWER EXTREMITY: GREAT SAPHENOUS VEIN: Saphenofemoral Junction: 0.4 cm; Reflux: 0 ms Proximal Thigh: 0.5 cm; Reflux: 0 ms Mid Thigh: 0.5 cm; Reflux: >2400 ms Distal Thigh: 0.5 cm; Reflux: >2200 ms At Knee: 0.5 cm; Reflux: 1500 ms Below Knee/Proximal Calf: 0.4 cm; Reflux: 1850 ms Mid Calf: 0.2 cm; Reflux: 0 ms Ankle/Distal Calf: 0.3 cm; Reflux: 0 ms Lateral accessory GREAT SAPHENOUS VEIN: Saphenofemoral Junction: 0.3 cm; Reflux: 0 ms Mid Thigh: 0.3 cm; Reflux: 0 ms SMALL SAPHENOUS VEIN: Drainage: thigh extension Saphenopopliteal Junction: 0.2 cm; Reflux: 0 ms Mid calf: 0.2 cm; Reflux: 0. ms Distal calf: 0.3 cm; Reflux: 0 ms VEIN OF GIACOMINI: Size: 0.2 Reflux: 0 PERFORATORS: Location: Greater saphenous vein, proximal calf Size: 0.3 cm Reflux: 0 ms VARICOSITIES > 3mm: Location: Accessory saphenous vein, mid Size: 0.3 cm Reflux: 0 ms Location: Great saphenous vein, at knee Size: 0.3 cm Reflux: 0 ms US/US venous duplex LE BI IMPRESSION: Right: Venous incompetence is demonstrated in the greater saphenous vein, midcalf Left: Extensive nonocclusive chronic DVT is similar to the prior in December 2023 Venous incompetence is demonstrated in the greater saphenous vein from the mid thigh through the proximal calf Electronically signed by: Umesh Franklin MD 09/23/2025 02:02 PM EST Dictated By: Umesh Franklin MD Signed By: <Electronically signed by Umesh Franklin MD in OV> 09/23/25 1402 DD/ 1054 TD/TT: 09/23/25 1129 Podiatry Teacher: [facility] External Provider CV VASC ULAR PROCEDURES Final Result [facility] [address] [place] [phone] * (ABNORMAL) POCT INR manually resulted (09/16/2025 1:02 PM EST) Only the most recent of5 resultswithin the time period is included. Pathologist [facility] Protime INR 1.5(L) 2 - 3 Blood Capillary blood specimen / Unknown 09/16/2025 1:02 PM EST Veronica Gallardo MD POINT OF CARE TEST ENTER/EDIT OR DERABLES Final Result * Syphilis Screen (09/09/2025 9:44 AM EST) [facility] Syphilis Screen Nonreactive Nonreactive [facility] 09/09/2025 9:44 AM EST 09/09/2025 9:44 AM EST Veronica Gallardo MD LAB BLOOD ORDERABLES Final Resul t Performing Organization Address [facility] Co de Phone Number [facility] [address] [place] [phone] * Hepatitis C Antibody with Reflex to HCV, RNA, Quantitative, Real-Time PCR (09/09/2025 9:44 AM EST) Hepatitis C Antibody Nonreactive Nonreactive [facility] Comment:Antibodies to HCV no t detected; does not exclude early acuteHCV infection. Venous blood specimen / Unknown 09/09/2025 9:44 AM EST 09/09/2025 9:44 AM EST Veronica Gallardo MD LAB BLOOD ORDERABLES Final Resul t Performing Organization Address [facility] Co de Phone Number [facility] [address] [place] [phone] * Hepatitis B surface antigen, EIA (09/09/2025 9:44 AM EST) Hepatitis B Surface Ag Negative Negative [facility] Venous blood specimen / Unknown 09/09/2025 9:44 AM EST 09/09/2025 9:44 AM EST Veronica Gallardo MD LAB BLOOD ORDERABLES Final Resul t Performing Organization Address [facility] Co de Phone Number [facility] [address] [place] [phone] * Hepatitis B Core Antibody, Total (09/09/2025 9:44 AM EST) Hepatitis B Core Antibody Nonreactive Nonreactive [facility] Venous blood specimen / Unknown 09/09/2025 9:44 AM EST 09/09/2025 9:44 AM EST us Veronica Gallardo MD LAB BLOOD ORDERABLES Final Resul t Performing Organization Address [facility] Co de Phone Number [facility] [address] [place] [phone] * HIV-1/2 Antigen and Antibodies, Fourth Generation, with Reflexes (09/09/2025 9:44 AM EST) [facility] HIV AB/AG Nonreactive Nonreactive [facility] Comment:HIV-1 p24 Ag and/or HIV-1/HIV-2 Ab not detected.A test result that is nonreactive does not exclude thepossibility of exposure to or infection with HIV-1 and/orHIV-2. Nonreactive results in this assay for individualswith prior exposure to HIV-1 and/or HIV-2 may be due toantigen and antibody levels that are below the limit ofdetection of this assay.The [employer] HIV Ag/Ab Combo assay result andsupplemental assay results should be interpreted inconjunction with the patient's clinical presentation,history and other laboratory results. If the results areinconsistent with clinical evidence, additional testing issuggested to confirm the result. Venous blood specimen / Unknown 09/09/2025 9:44 AM EST 09/09/2025 9:44 AM EST us Veronica Gallardo MD LAB BLOOD ORDERABLES Final Resul t Performing Organization Address City/[facility]/ZIP Co de Phone Number [facility] [address] [place] [phone] * Hepatitis B Surface Antibody, Qualitative (09/09/2025 9:44 AM EST) [facility] ~Hepatitis B Surface Antibody NONREACTIVE Nonreactive [facility] Comment:Nonreactive: < 8.00 mIU/mL Venous blood specimen / Unknown 09/09/2025 9:44 AM EST 09/09/2025 9:44 AM EST us Veronica Gallardo MD LAB BLOOD ORDERABLES Final Resul t Performing Organization Address [facility] Co de Phone Number [facility] [address] [place] [phone] * PSA,Total (09/09/2025 9:44 AM EST) Only the most recent of2 resultswithin the time period is included. Prostate Specific Antigen 2.38 <0.05 - 4.0 ng/mL [facility] Comment:PSA methodology: Abb yaakov Alijonathonty i ChemiluminescentMicroparticle Immunoassay (CMIA) 09/09/2025 9:44 AM EST 09/09/2025 9:44 AM EST us Generic External Data Provider LAB BLOOD ORDERAB LES Final Result Performing Organization Address [facility] Co de Phone Number [facility] [address] [place] [phone] * (ABNORMAL) Albumin, Random Urine W/Creatinine (09/09/2025 9:42 AM EST) Creatinine, Urine 60.80 mg/dL [facility] Microalbumin Urine 198.0 mg/L [facility] Microalbum Creatinine Ratio Ur 325.6(H) <30 ug/mg cr [facility] Comment:Albumin/Creatinine R atio Reference Ranges: Normal: < 30 ug/mg creatinine Microalbuminuria: 30 - 300 ug/mg creatinineClinical Albuminuria: > 300 ug/mg creatinine Urine (Urine, Random) 09/09/2025 9:42 AM EST 09/09/2025 10:25 AM EST us Veronica Gallardo MD LAB URINE ORDERABLES Final Resul t Performing Organization Address [facility] Co de Phone Number [facility] [address] [place] [phone] * NM heart perfusion SPECT stress and rest (08/09/2025 8:13 AM EDT) Anatomical Region Laterality Modality Body Nuclear Medicine 08/09/2025 8:13 AM EDT Narrative 08/11/2025 1:[address] [address] Nuclear Medicine Report Signed Patient: Chriss Munoz MR#: [id number] : 1955 Acct:[id number] Age/Sex: 70 / M ADM Date: 08/07/25 Loc: [facility] 462-[address]: Keon Escalona MD Ordering Physician: Karri Trinidad MD Date of Service: 08/09/25 Procedure(s): NM makenzie perf SPECT rest str Accession Number(s): [id number] cc: Veronica Gallardo MD; Karri Trinidad MD [...] by: Karri Trinidad MD 08/11/2025 12:57 PM EST Dictated By: Karri Triindad MD Signed By: <Electronically signed by Karri Trinidad MD in OV> 08/11/25 1257 DD/ 0813 TD/TT: 08/09/25 1130 Podiatry Teacher: Procedure Note Donotuseinterpreter, Image - 08/11/2025 [place] [address] Nuclear Medicine Report Signed Patient: Lenard Munoz#: [id number] : 1955cct:[id number] Age/Sex: 70 / MADM Date: 08/07/25 Loc: [facility] 462-[address]: Keon Escalona MD Ordering Physician: Karri Trinidad MD Date of Service: 08/09/25 Procedure(s): NM makenzie perf SPECT rest str Accession Number(s): [id number] cc: Veronica Gallardo MD; Karri Trinidad MD [...] by: Karri Trinidad MD 08/11/2025 12:57 PM EST RP Dictated By: Karri Trinidad MD Signed By: <Electronically signed by Karri Trinidad MD inOV> 08/11/25 1257 DD/ 0813 TD/TT: 08/09/25 1130 Podiatry Teacher: [facility] External Provider IMG NM PROCEDURES Edited Result - Final * (ABNORMAL) Prothrombin Time-INR (08/07/2025 4:19 PM EDT) Prothrombin Time 40.7(H) 10.9 - 12.4 SEC [facility] INTERNATIONAL NORM RATIO 3.5(H) 0.9 - 1.1 [facility] Comment:INTERNATIONAL NORMAL IZED RATIO (INR) REFERENCE [...] Provider LAB BLOOD ORDERAB LES Final Result [facility] [address] [place] [phone] * High Sensitivity Troponin I (08/07/2025 3:42 PM EDT) Only the most recent of3 resultswithin the time period is included. TROPONIN I HIGH SENSITIVITY 22.7 <3.5 - 35.0 ng/L [facility] Comment:The [place] high sens itivity Troponin-I results should beused in conjunction with other diagnostic information suchas ECG, clinical observations and information, and patientsymptoms to aid in the diagnosis of DE. 08/07/2025 3:42 PM EDT 08/07/2025 3:44 PM EDT us Generic External Data Provider LAB BLOOD ORDERAB LES Final Result Performing Organization Address City/State/[facility] Co de Phone Number [facility] [address] [place] [phone] * ECG 12 lead (08/07/2025 1:19 [...] AM EDT Narrative 08/07/2025 11:39 AM EDT [address] [address] XRay Report Signed Patient: Chriss Munoz MR#: [id number] : 1955 Acct:[id number] Age/Sex: 70 / M ADM Date: 08/07/25 Loc: [facility] Attending Dr: Ordering Physician: Jc Lehman MD Date of Service: 08/07/25 Procedure(s): XR chest 2V Accession Number(s): [id number] cc: Jc Lehman MD; Veronica Gallardo MD [...] 08/07/25 1136 DD/ 1129 TD/TT: 08/07/25 1134 Podiatry Teacher: Procedure Note Donotuseinterpreter, Image - 08/07/2025 [place] [address] XRay Report Signed Patient: Lenard Munoz#: [id number] : 1955cct:[id number] Age/Sex: 70 / MADM Date: 08/07/25 Loc: .ED Attending Dr: Ordering Physician: Jc Lehman MD Date of Service: 08/07/25 Procedure(s): XR chest 2V Accession Number(s): [id number] cc: Jc Lehman MD; Veronica Gallardo MD [...] 08/07/25 1136 DD/ 1129 TD/TT: 08/07/25 1134 Podiatry Teacher: [facility] External Provider IMG XR PROCEDURES Final Result * Lipid Panel with Reflex to Direct LDL (04/15/2025 9:10 AM EDT) Triglycerides 107 <150 mg/dL [facility] Comment:Desirable Triglyceri de: less than 150 [...] 190 mg/dL HDL Cholesterol 56 >40 mg/dL [facility] Comment:Desirable HDL: great er than 40 mg/dL Note: This HDL assay may give artificially low results in patients with liver disease. Blood 04/15/2025 9:10 AM EDT 04/15/2025 11:17 AM EDT Veronica Gallardo MD LAB BLOOD ORDERABLES Final Resul t [facility] [address] [place] [phone] from Last 3 Months or Most Recently Relevant to Health Maintenance Insurance [facility] OPTIONS (HMO D-SNP) [place] [id number] Care Teams Chair Upholsterer Relationship Specialty Start Date End Date Veronica Gallardo MD [address], [place] PCP - General Family Medicine 08/09/12 Brien Vargas, PallaviD [address], [place] Pharmacist Internal Medicine 11/30/22 Earline Quinn, RENNY [address], [place] Registered Nurse Family Medicine 07/29/25
== END 2025-09-23 10:46 | disposition home or self-care (01) ==
LOC: HO.US 10:45
PROVIDERS: PCP Family Medicine; Visit Provider Surgery Vascular Surgery
DX: I83.12 Varicose veins of left lower extremity with inflammation (principal); Z79.01 Long term (current) use of anticoagulants
CPT/HCPCS: 93970

== ENCOUNTER → 2025-09-23 10:49 | Outpatient (BNV) | payer OTHER, SELFPAY | PROVIDERS: PCP Family Medicine; Visit Provider Radiology Diagnostic Radiology | DX: I83.12 Varicose veins of left lower extremity with inflammation (principal); I82.502 Chronic embolism and thrombosis of unspecified deep veins of left lower extremity | CPT/HCPCS: 93970 ==